=== PATIENT | male | born 1945 | race Caucasian/White ===

== ENCOUNTER 2018-11-24 08:21 | Observation (INO) | payer MEDICARE, SELFPAY ==
[2018-11-24 08:22] VITALS: BP 173/82; PULSE 105; RESP 18; TEMP 37; O2SAT 95; BMI 34.7
[2018-11-24 08:34] VITALS: TEMP 37
--- NOTE | 2018-11-24 08:50 | ED.DCSUM_ITS ---
- ER Visit Summary Date of Service: 11/24/18 Chief Complaint: Right hand swelling History of Present Illness: The patient is a 73 M with a scratch over the dorsum of the hand, it has progressed to swelling he saw his PCP yesterday who started him on Bactrim and Keflex. He presents with worse swelling. No fever or chills noted. He denies any chest pain shortness of breath, no motor issues, but the swelling is not allowing him to fully grab onto small objects. Physical Examination: Not appear in acute distress. Moist mucous membranes, no obvious facial deformity No C-spine tenderness supple neck. Regular rate and rhythm without any obvious murmurs Clear lungs bilaterally speaking in full sentences without any obvious respiratory distress Abdomen soft and nontender no guarding or rebound Right hand has a small abrasion on the dorsum of the second digit, no abscess is seen, there is diffuse edema throughout the hand and there is no lymphangitic streaking, motor and sensory are intact. Emergency Department Course and Treatment: Patient has leukocytosis and inflammatory marker elevation, however there is no osteomyelitis. He appears well but this has edema in his left hand, it is likely an infection that has not improved with outpatient antibiotics. There is no evidence of abscess or any surgical need at this time. I will admit the patient for IV antibiotics. Disposition: Admit stable condition Impression: Right hand infection This note was generated with [employer] dictation software. It may contain incorrect words, spelling, and punctuation that were not noted in review of the chart prior to signing ED Disposition - Plan for ED Patient: Referrals: Miguelangel Livingston MD [Primary Care Provider] -
[2018-11-24 09:17] LABS: Erythrocyte Sedimentation Rate 12 mm/hr (0-20)
[2018-11-24 09:19] LABS: Basophil# 0.02 X10^3/uL; Basophil% 0.1 % (0-1); Eosinophil# 0.06 X10^3/uL; Eosinophils% 0.4 % (0-5); Hematocrit 45.1 % (40-54); Hemoglobin 15.1 g/dl (13.0-16.5); Lymphocyte % 8.3 % (19-41); Mean Corp Hgb Conc 33.5 g/gl (32-36); Mean Corpuscular Hgb 31.8 pg (27.0-32.0); Mean Corpuscular Volume 94.9 fL (80-94); Mean Platelet Vol. 10.2 fl (6.2-12.0); Monocyte# 1.32 X10^3/uL; Monocyte% 7.8 % (0-10); Neutrophil # 14.03 X10^3/uL (2.7-7.7); Neutrophil % 82.8 % (47-70); Platelet Count 235 K/mm3 (150-450); RBC Distribution Width CV 12.9 % (11.6-14.6); Red Blood Count 4.75 M/mm3 (4.6-6.2); White Blood Count 16.9 K/mm3 (4.4-11.0)
[2018-11-24 09:23] LABS: POSITIVE COUNT NO; POSITIVE DIFFERENTIAL NO; POSITIVE MORPHOLOGY NO
[2018-11-24 09:29] LABS: ALB/GLOB Ratio 0.8 RATIO (0.9-2.4); AST(SGOT) 18 U/L (15-37); Alanine Aminotransfer ALT/SGPT 35 U/L (16-61); Albumin, Serum 3.6 g/dL (3.2-5.0); Alkaline Phosphatase 82 U/L (45-117); Anion Gap 6 (5-15); BUN 22 mg/dL (7-18); BUN/Creat Ratio 17.3 RATIO (10-20); Calcium,Total 9.5 mg/dL (8.5-10.1); Chloride 100 mmol/L (98-107); Creatinine, Serum 1.27 mg/dL (0.70-1.30); EST Glomerular Filtration Rate 59 mL/min (>60); Est Glom Filt Rate - Afr Amer 71 mL/min (>60); Estimated Creatinine Clearance 48.43 ml/min; Globulin 4.8 g/dL (2.2-4.2); Glucose 163 mg/dL (74-106); Potassium 3.9 mmol/L (3.5-5.1); Protein, Total 8.4 g/dL (6.4-8.2); Sodium Level 137 mmol/L (136-145)
--- NOTE | 2018-11-24 09:38 | RAD_ITS ---
STUDY: X-RAY - RIGHT HAND REASON FOR EXAM: Male, 73 years old. Soft tissue swelling. No history of trauma. TECHNIQUE: 3 view(s) of the hand. COMPARISON: None. FINDINGS: There is calcification of the triangular fibrocartilage in keeping with chondrocalcinosis. Normal distal radioulnar joint. Normal visualized carpal bones. Normal carpal articulations There is degenerative arthrosis of the carpometacarpal articulation of the thumb with lateral subluxation of the first metacarpus. Normal second through fifth carpometacarpal joints. Normal metacarpi. Normal metacarpophalangeal joint of the thumb. Normal interphalangeal joint of the thumb. Normal proximal and distal phalanges of the thumb. Normal metacarpophalangeal joints of the second through fifth fingers. Normal proximal and distal interphalangeal joints of the second through fifth fingers. Normal phalanges of the second through fifth fingers. Soft tissue swelling. RAD/Hand Min 3 Views IMPRESSION: Soft tissue swelling. Degenerative changes and subluxation at the first carpometacarpal joint. Electronically Signed: Pantera Guzman, at 10:14 EDT , Service support ,
--- NOTE | 2018-11-24 10:30 | NURSING ---
MED SURG RT HAND CELLULITIS REMI
[2018-11-24 10:34] VITALS: BP 168/85; PULSE 94; RESP 16; TEMP 37.1; O2SAT 91
--- NOTE | 2018-11-24 10:59 | CASEMGMT ---
RN CM Assessment Introduced role of RN CM to patient and patient at bedside.? Patient is alert, oriented and able?to participate in RN CM Assessment. ?Care providers, pharmacy, and demographics verified. Presentation: Scratched hand, +swelling. Seen PCP yesterday and started on ABX. C/o worse swelling. Admit Dx: Right Hand Cellulitis Re-Admit: No Barriers/Issues: None. was asking about Insurance Coverage questions. Cm did explain Obs vs Inpt, PPO vs HMO, Showed how to search for In Network Providers through [employer] website and did advise to call [employer] and/or [facility] Billing Dept for further billing and coverage information. No further questions/concerns asked or displayed. PCP: Miguelangel Livingston Specialists: None Preferred Pharmacy: [facility] Insurance: [employer] MCR PPO Rx Benefit:?Yes LNOK: [address] Living Arrangements: Lives with in a SS Home, no steps to enter.? ADL?s: Independent with ambulation, currently wearing a Ortho boot. Independent with ADL's, currently requiring assistance with dressing. Transportation: Patient drives, to transport on [place] DME: None HHC: Past, cannot recall Agency. SNF: None Goal: Home and does not anticipate will have any needs. DC PLAN: Home with no anticipated needs identified at this time. ROSEANN Payne
[2018-11-24 11:26] VITALS: BP 136/63; PULSE 84; RESP 18; TEMP 36.9; O2SAT 92; BMI 35.2; BMI 35.3
[2018-11-24] MEDS: Cefazolin 2 GM in 0.9% Normal Saline 100 ML IV ×2 (14:40→21:57)
--- NOTE | 2018-11-24 16:15 | PCM.HP.STD ---
Problem List (1) Hypertension Status: Chronic (2) Cellulitis of right hand Status: Acute History of Present Illness Date of Admission: 11/24/18 Chief Complaint: Right hand pain The patient is a 73 year old M with a history of hypertension presents after scratching the dorsum of his right hand. He does not recall on what, but he remembers having worsening swelling and therefore went to his primary care doctor yesterday who gave him Bactrim and Keflex. He states that he took a couple of pills of each however the swelling had continued to worsen and he came to the ER. He denies any advancement of redness or streaking up the arm but he came because of the swelling. In the ER he was found to have a normal x-ray and an elevated white count as well as an L elevated CRP. He denies any fevers or chills at home, no lightheadedness or dizziness. Past Medical History Past Medical History (Chronic Problems): Chronic Problems Hypertension (Chronic) Allergies No Known Allergies Allergy (Verified 11/24/18 08:24) Home Medications: Ambulatory Orders Medication Instructions Recorded Amlodipine [Norvasc] 5 mg PO DAILY 11/24/18 Aspirin [Aspir 81] 81 mg PO DAILY 11/24/18 Cephalexin [Keflex] 250 mg PO Q6 11/24/18 Cyclobenzaprine [Flexeril] 5 mg PO TID 11/24/18 Hydrochlorothiazide [Hctz] 25 mg PO DAILY 11/24/18 Losartan Potassium [Cozaar] 100 mg PO DAILY 11/24/18 Smz/Tmp Ds [Bactrim Ds] 1 tablet PO BID 11/24/18 Vardenafil HCl [Levitra] 20 mg PO DAILY PRN PRN 11/24/18 Surgical History: appendectomy Smoking Status: Never smoker Alcohol: None Drugs: None - *Family History Maternal History Items: Heart Disease Paternal History Items: High Cholesterol Review of Systems Constitutional: Denies: Chills, Fever, Weight Change HEENT: Denies: Head Aches, Sinus Congestion, Sinus Drainage Cardiovascular: Denies: Chest Pain, Palpitations Respiratory: Denies: Cough, Shortness of breath at rest, Sputum production Gastrointestinal: Denies: Abdominal Pain, Nausea, Vomiting Genitourinary: Denies: Dysuria Musculoskeletal: Denies: Joint Pain, Joint Tenderness Skin: Reports: Wounds, - - Swelling of his right hand compared to his left. Denies: Rash Neurological: Denies: Numbness, Tingling, Focal weakness Psychiatric: Denies: Anxiety, Depression Hematologic/ Lymphatic: Denies: Easy Bruising, Easy Bleeding VTE Information - Inpt Only VTE Present on Admission: No Patient Problems: Active and Suspected Problems Cellulitis of right hand (Acute) - Physical Exam General: Alert, Oriented x3, Cooperative, No apparent distress HEENT: Atraumatic, PERRLA, EOMI, Normocephalic Oral: Moist Mucosa Neck: Supple, No JVD Lungs: Clear to auscultation, Normal air movement, No rhonchi, No wheeze, No rales Cardiovascular: Regular rate, Regular Rhythm, Normal S1, Normal S2, No murmurs Abdomen: Soft, Non Tender, Non-Distended, No Hepato-splenomegaly Extremities: No edema, Capillary Refill Less than 3 Seconds Skin: Ulcer/ Wound - 2 mm wound on the dorsal surface of his first MCP joint. There is localized redness and a little bit of swelling, however there is no expanding erythema or streaking up the arm. Neurological: Neuro grossly intact, Sensory exam intact to light touch and pain Psych/Mental Status: Normal Affect, Appropriate Vital Signs Temp Pulse Resp BP Pulse Ox 98.4 F 84 18 136/63 H 92 11/24/18 11:26 11/24/18 11:26 11/24/18 11:26 11/24/18 11:26 11/24/18 11:26 Oxygen Delivery Method Room Air Weight: 225 lb 4.8 oz Body Mass Index (BMI) 35.2 Laboratory Tests Past 24 Hrs 11/24/18 11/24/18 09:00 09:00 WBC 16.9 H RBC 4.75 Hgb 15.1 Hct 45.1 MCV 94.9 H MCH 31.8 MCHC 33.5 RDW 12.9 RDW Differential 45.0 H Plt Count 235 MPV 10.2 Immature Gran % (Auto) 0.600 Neut % (Auto) 82.8 H Lymph % (Auto) 8.3 L [place] % (Auto) 7.8 Eos % (Auto) 0.4 Baso % (Auto) 0.1 Absolute Neuts (auto) 14.0 H Absolute Lymphs (auto) 1.40 Total Counted Not Reportable ESR 12 Sodium 137 Potassium 3.9 Chloride 100 Carbon Dioxide 31.0 Anion Gap 6 BUN 22 H Creatinine 1.27 Estim Creat Clear Calc 48.43 Est GFR (MDRD) Af Amer 71 Est GFR (MDRD) Non-Af 59 L BUN/Creatinine Ratio 17.3 Glucose 163 H Calcium 9.5 Total Bilirubin 0.50 AST 18 ALT 35 Alkaline Phosphatase 82 C-React Prot Ext Range 120.00 H Total Protein 8.4 H Albumin 3.6 Globulin 4.8 H Albumin/Globulin Ratio 0.8 L Assessment/Plan All Active Problems Cellulitis of right hand (Acute) 1. Right dorsal hand wound with localized erythema consistent with cellulitis -He only was able to take a few doses of both the Bactrim and Keflex before he felt that the swelling had worsened and came to the ER -Given the lack of an abscess formation will treat with IV Ancef at the moment -If there is significant improvement in his lab work tomorrow we will plan on discharge home and finish his course of Bactrim and Keflex -Chest x-ray shows only localized swelling and no bone destruction 2. HTN -Initially blood pressure was elevated secondary to pain, however he has slowly improved and we can resume his home medications DVT: Lovenox Code Visit OBSV E&M: 07336 Initial observation care L2
[2018-11-24] MEDS: Acetaminophen 325 MG Tablet 650 MG PO (17:19)
[2018-11-24 17:20] VITALS: BP 134/33; PULSE 99; RESP 16; TEMP 37.6; O2SAT 94
[2018-11-24 21:42] VITALS: BP 128/84; PULSE 100; RESP 18; TEMP 37.1; O2SAT 95
[2018-11-24] MEDS: CYCLOBENZAPRINE HCL 5 MG TABLET PO (22:01)
[2018-11-25 03:42] VITALS: BP 120/73; PULSE 89; RESP 16; TEMP 37.1; O2SAT 92
[2018-11-25] MEDS: CYCLOBENZAPRINE HCL 5 MG TABLET PO ×2 (06:25→13:19)
[2018-11-25 06:53] LABS: Absolute Lymphocyte Count 1.39 X10^3/ul (0.83-4.51); Absolute Neutrophil Count 12.3 X10^3/uL (2.0-7.7); Basophil# 0.02 X10^3/uL; Basophil% 0.1 % (0-1); Eosinophil# 0.07 X10^3/uL; Eosinophils% 0.5 % (0-5); Hematocrit 42.6 % (40-54); Hemoglobin 14.1 g/dl (13.0-16.5); Lymphocyte # 1.39 X10^3/ul (4.0); Lymphocyte % 9.4 % (19-41); Mean Corp Hgb Conc 33.1 g/gl (32-36); Mean Corpuscular Hgb 31.3 pg (27.0-32.0); Mean Corpuscular Volume 94.5 fL (80-94); Mean Platelet Vol. 10.6 fl (6.2-12.0); Monocyte# 0.98 X10^3/uL; Monocyte% 6.6 % (0-10); Neutrophil # 12.28 X10^3/uL (2.7-7.7); Neutrophil % 82.9 % (47-70); Platelet Count 236 K/mm3 (150-450); RBC Distribution Width SD 44.7 fl (35.1-43.9); Red Blood Count 4.51 M/mm3 (4.6-6.2); White Blood Count 14.8 K/mm3 (4.4-11.0)
[2018-11-25 07:00] LABS: POSITIVE COUNT NO; POSITIVE DIFFERENTIAL NO; POSITIVE MORPHOLOGY NO
[2018-11-25] MEDS: Cefazolin 2 GM in 0.9% Normal Saline 100 ML IV ×2 (07:05→13:19)
[2018-11-25 07:12] LABS: Anion Gap 9 (5-15); BUN 19 mg/dL (7-18); BUN/Creat Ratio 20.3 RATIO (10-20); Calcium,Total 9.1 mg/dL (8.5-10.1); Chloride 102 mmol/L (98-107); Creatinine, Serum 0.94 mg/dL (0.70-1.30); EST Glomerular Filtration Rate 84 mL/min (>60); Est Glom Filt Rate - Afr Amer 102 mL/min (>60); Estimated Creatinine Clearance 65.44 ml/min; Glucose 143 mg/dL (74-106); Potassium 4.3 mmol/L (3.5-5.1); Sodium Level 137 mmol/L (136-145)
[2018-11-25 08:24] VITALS: BP 160/85; PULSE 92; RESP 18; TEMP 36.8; O2SAT 92
[2018-11-25] MEDS: Acetaminophen 325 MG Tablet 650 MG PO ×2 (08:42→16:40)
[2018-11-25] MEDS: amLODIPine 5 MG Tablet PO (08:43)
[2018-11-25] MEDS: Losartan Potassium 100 MG Tablet PO (08:43)
[2018-11-25] MEDS: hydroCHLOROthiazide 25 MG Tablet PO (08:43)
[2018-11-25] MEDS: Aspirin E.C. 81 MG Tablet PO (08:43)
--- NOTE | 2018-11-25 11:35 | DCINST_ITS ---
- Discharge Diagnoses Current Active Problems: Current Active and Chronic Problems Hypertension (Chronic) Cellulitis of right hand (Acute) You will use the following diet at home:: Cardiac Your food should be the consistency of: Regular Your liquids should be the consistency of: Regular/Thin Discharge Activity: Return to Normal Activity Call your doctor if you observe: Fever of 101 or Higher, Shortness of breath, Di zziness, Fainting spells, Swelling in the ankles, Chest pain, Increased palpitations (irregular heartbeat) Allergies/Adverse Reactions: Allergies No Known Allergies Allergy (Verified 11/24/18 08:24) Medications to take at Discharge Amlodipine [Norvasc] 5 mg PO DAILY 11/24/18 Aspirin [Aspir 81] 81 mg PO DAILY 11/24/18 Cyclobenzaprine [Flexeril] 5 mg PO TID 11/24/18 Hydrochlorothiazide [Hctz] 25 mg PO DAILY 11/24/18 Losartan Potassium [Cozaar] 100 mg PO DAILY 11/24/18 Smz/Tmp Ds [Bactrim Ds] 1 tablet PO BID 11/24/18 Vardenafil HCl [Levitra] 20 mg PO DAILY PRN PRN 11/24/18 Cephalexin [Keflex] 500 mg PO Q6 #0 11/25/18 Cephalexin [Keflex] 500 mg PO Q6 #16 capsule 11/25/18 The following prescriptions were given: Cephalexin [Keflex] 500 mg PO Q6 #16 capsule Primary Care Physician: Miguelangel Livingston MD [Primary Care Provider] - Please follow up with your Primary Care Physician in: 3-5 days Test Results: Test results from this visit will be discussed in further detail at your follow- up appointment, if applicable.
--- NOTE | 2018-11-25 11:35 | PCM.DC.SUM ---
Discharge Date and Diagnosis - Problem List Patient Problems: Active and Suspected Problems Cellulitis of right hand (Acute) Date of Admission: 11/24/18 Date of Discharge: 11/25/18 - Primary Discharge Diagnosis Active and Suspected Problems Cellulitis of right hand (Acute) - Secondary Discharge Diagnosis Chronic Problems Hypertension (Chronic) Hospital Course and Treatment Imaging Results: XR R Hand: IMPRESSION: Soft tissue swelling. Degenerative changes and subluxation at the first carpometacarpal joint. Consults: None Operations: None Procedures: None Summary of Care Provided: Per HPI: The patient is a 73 year old M with a history of hypertension presents after scratching the dorsum of his right hand. He does not recall on what, but he remembers having worsening swelling and therefore went to his primary care doctor yesterday who gave him Bactrim and Keflex. He states that he took a couple of pills of each however the swelling had continued to worsen and he came to the ER. He denies any advancement of redness or streaking up the arm but he came because of the swelling. In the ER he was found to have a normal x-ray and an elevated white count as well as an L elevated CRP. He denies any fevers or chills at home, no lightheadedness or dizziness. Hospital Course: 1. Right dorsal hand wound with localized erythema consistent with very slight [id number] male with a history of hypertension who scratched his hand on his right MCP on the dorsum a couple of days ago presented to the primary care physician's office for evaluation because of pain with closing his hand and was unable to turn the francis in the ignition of his car and so was given Keflex and Bactrim. He took just 1 or 2 pills of each and presented to the ER the next day because he stated that the swelling appeared to be worse. There is been no erythema or streaking going up his arm. He has been afebrile. On admission to the ER he did have an elevated white count to 16.9 and a CRP around 120. X-ray was negative for any osteomyelitis, and he was started on IV Ancef. His white count did improve on the day of discharge to 14.8 and his swelling remained the same as it did when he came in and his pain is a little bit more improved and he still has no erythema. In review of his medications his Keflex was dosed at 250 mg 4 times daily therefore I will increase his dosage to 500 4 times daily and will give him a new prescription to to be able to take for the remaining few days. His other medical diagnoses were evaluated and his home medications were continued where appropriate. This plan was discussed with him and his and he expressed understanding and is in agreement. Patient Problems: Active and Suspected Problems Cellulitis of right hand (Acute) Objective: General: Alert, Oriented x3, Cooperative, No apparent distress HEENT: Atraumatic, PERRLA, EOMI, Normocephalic Oral: Moist Mucosa Neck: Supple, No JVD Lungs: Clear to auscultation, Normal air movement, No rhonchi, No wheeze, No rales Cardiovascular: Regular rate, Regular Rhythm, Normal S1, Normal S2, No murmurs Abdomen: Soft, Non Tender, Non-Distended, No Hepato-splenomegaly Extremities: No edema, Capillary Refill Less than 3 Seconds Skin: Ulcer/ Wound - 2 mm wound on the dorsal surface of his first MCP joint. There is localized redness and a little bit of swelling, however there is no expanding erythema or streaking up the arm. Neurological: Neuro grossly intact, Sensory exam intact to light touch and pain Psych/Mental Status: Normal Affect, Appropriate - Physical Exam Vital Signs Temp Pulse Resp BP Pulse Ox 98.2 F 92 18 160/85 H 92 11/25/18 08:24 11/25/18 08:24 11/25/18 08:24 11/25/18 08:24 11/25/18 08:24 Oxygen Delivery Method Room Air Weight: 225 lb 4.8 oz Body Mass Index (BMI) 35.2 Intake and Output for Last 24 Hours 11/23/18 11/24/18 11/25/18 23:59 23:59 23:59 Intake Total 615 / 615 Balance 615 / 615 Laboratory Tests Past 24 Hrs 11/25/18 11/25/18 06:20 06:20 WBC 14.8 H RBC 4.51 L Hgb 14.1 Hct 42.6 MCV 94.5 H MCH 31.3 MCHC 33.1 RDW 13.0 RDW Differential 44.7 H Plt Count 236 MPV 10.6 Immature Gran % (Auto) 0.500 Neut % (Auto) 82.9 H Lymph % (Auto) 9.4 L [place] % (Auto) 6.6 Eos % (Auto) 0.5 Baso % (Auto) 0.1 Absolute Neuts (auto) 12.3 H Absolute Lymphs (auto) 1.39 Total Counted Not Reportable Sodium 137 Potassium 4.3 Chloride 102 Carbon Dioxide 26.0 Anion Gap 9 BUN 19 H Creatinine 0.94 Estim Creat Clear Calc 65.44 Est GFR (MDRD) Af Amer 102 Est GFR (MDRD) Non-Af 84 BUN/Creatinine Ratio 20.3 H Glucose 143 H Calcium 9.1 Discharge Activity: Return to Normal Activity Call your doctor if you observe: Fever of 101 or Higher, Shortness of breath, Dizziness, Fainting spells, Swelling in the ankles, Chest pain, Increased palpitations (irregular heartbeat) Home Medications: Medications to take at Discharge Amlodipine [Norvasc] 5 mg PO DAILY 11/24/18 Aspirin [Aspir 81] 81 mg PO DAILY 11/24/18 Cyclobenzaprine [Flexeril] 5 mg PO TID 11/24/18 Hydrochlorothiazide [Hctz] 25 mg PO DAILY 11/24/18 Losartan Potassium [Cozaar] 100 mg PO DAILY 11/24/18 Smz/Tmp Ds [Bactrim Ds] 1 tablet PO BID 11/24/18 Vardenafil HCl [Levitra] 20 mg PO DAILY PRN PRN 11/24/18 Cephalexin [Keflex] 500 mg PO Q6 #0 11/25/18 Cephalexin [Keflex] 500 mg PO Q6 #16 capsule 11/25/18 Following Prescrptions Were Given to Patient: Cephalexin [Keflex] 500 mg PO Q6 #16 capsule Primary Care Physician: Miguelangel Livingston MD [Primary Care Provider] - Please follow up with your Primary Care Physician in: 3-5 days Disposition: Home Minutes spent on discharge:: 35 Patient Condition:: Good Medical Necessity - Tobacco Use Smoking Status: Never smoker Meaningful Use Info Meaningful Use Diagnoses (Choose all that apply): None applicable Code Visit OBSV E&M: 83739 Observation care discharge
[2018-11-25 13:21] VITALS: BP 118/64; PULSE 113; RESP 18; TEMP 37.1; O2SAT 93
[2018-11-25 17:30] VITALS: BP 118/64; PULSE 113; RESP 18; TEMP 37.1; O2SAT 93
== END 2018-11-25 17:45 | disposition home or self-care (01) ==
LOC: ED 09:38 → MS3 10:41
PROVIDERS: Admitting Provider Family Medicine; Emergency Provider Emergency Medicine; Family Provider Family Medicine; PCP Family Medicine; Visit Provider Family Medicine
DX: L03.113 Cellulitis of right upper limb (principal); I10 Essential (primary) hypertension; Z79.899 Other long term (current) drug therapy; Z79.82 Long term (current) use of aspirin
CPT/HCPCS: 36415; 73130; 80048; 80053; 85025; 85652; 86140; 96365; 96366; 99218; 99284; J7050; A4216; G0378

== ENCOUNTER 2018-12-05 23:11 | Inpatient (IN) | payer MEDICARE, SELFPAY ==
[2018-11-24 11:26] VITALS: BMI 35.2
[2018-12-05 23:11] VITALS: BP 133/84; PULSE 106; RESP 18; TEMP 37.5; O2SAT 92; BMI 35.1
[2018-12-06] MEDS: HYDROcodone Bitartrate/Apap 5/325 Tablet PO ×2 (00:07→08:31)
[2018-12-06 00:13] LABS: Absolute Lymphocyte Count 1.42 X10^3/ul (0.83-4.51); Absolute Neutrophil Count 13.3 X10^3/uL (2.0-7.7); Basophil# 0.02 X10^3/uL; Basophil% 0.1 % (0-1); Eosinophil# 0.04 X10^3/uL; Eosinophils% 0.2 % (0-5); Hematocrit 37.8 % (40-54); Hemoglobin 12.9 g/dl (13.0-16.5); Lymphocyte # 1.42 X10^3/ul (4.0); Lymphocyte % 8.6 % (19-41); Mean Corp Hgb Conc 34.1 g/gl (32-36); Mean Corpuscular Hgb 31.6 pg (27.0-32.0); Mean Corpuscular Volume 92.6 fL (80-94); Mean Platelet Vol. 9.9 fl (6.2-12.0); Monocyte# 1.53 X10^3/uL; Monocyte% 9.3 % (0-10); Neutrophil # 13.33 X10^3/uL (2.7-7.7); Platelet Count 348 K/mm3 (150-450); RBC Distribution Width CV 12.7 % (11.6-14.6); RBC Distribution Width SD 42.7 fl (35.1-43.9); Red Blood Count 4.08 M/mm3 (4.6-6.2); White Blood Count 16.5 K/mm3 (4.4-11.0)
[2018-12-06 00:14] LABS: Differential Indicated SCAN CRITERIA MET; POSITIVE COUNT NO; POSITIVE DIFFERENTIAL YES; POSITIVE MORPHOLOGY NO
[2018-12-06 00:28] LABS: Anion Gap 9 (5-15); BUN 36 mg/dL (7-18); BUN/Creat Ratio 29.3 RATIO (10-20); Calcium,Total 9.3 mg/dL (8.5-10.1); Chloride 97 mmol/L (98-107); Creatinine, Serum 1.23 mg/dL (0.70-1.30); EST Glomerular Filtration Rate 61 mL/min (>60); Est Glom Filt Rate - Afr Amer 74 mL/min (>60); Estimated Creatinine Clearance 50.01 ml/min; Glucose 134 mg/dL (74-106); Potassium 3.8 mmol/L (3.5-5.1); Sodium Level 132 mmol/L (136-145)
[2018-12-06 00:33] LABS: Lactic Acid 0.8 mmol/L (0.4-2.0)
--- NOTE | 2018-12-06 00:52 | ED.VISSUMM ---
- ER Visit Summary Date of Service: 12/06/18 Chief Complaint: Pain and swelling of the right foot History of Present Illness: The patient is a 73 M who presents with pain and swelling of his right foot. This really started today. Pain is sharp. He also noticed some redness and swelling. He has a history of recent right hand cellulitis which was difficult to control and resulted in 2 different hospitalizations. He actually just completed Augmentin. He denies fevers nausea vomiting chest pain shortness of breath. No history of DVT. Physical Examination: Temperature 99.5, heart rate 106 pulse ox 92% Moist mucous membranes Heart regular slightly tachycardic Lungs clear Abdomen soft There is some erythema and soft tissue swelling of the right foot is warm to the touch he has normal sensation but brisk capillary refill Alert Test Results: Labs are notable for white blood cell count 16.5. Lactic acid normal. Emergency Department Course and Treatment: Patient was given Bruno for pain. He does have a leukocytosis although lactic acid is normal. He had a scheduled appointment with podiatry later today. We discussed oral antibiotics with close outpatient follow-up with the understanding that he would need to return for new or worsening symptoms versus hospitalization for IV antibiotics given his recent history of difficult to control cellulitis. Patient and family would prefer that he be admitted. I do think this is reasonable given leukocytosis, slight tachycardia, recent cellulitis and just completed oral antibiotics. Treatment Plan: [] Disposition: Admit Impression: Cellulitis right foot This note was generated with [employer] dictation software. It may contain incorrect words, spelling, and punctuation that were not noted in review of the chart prior to signing ED Disposition - Plan for ED Patient: Referrals: Miguelangel Livingston MD [Primary Care Provider] -
[2018-12-06 00:56] LABS: Differential Comment SCANNED
--- NOTE | 2018-12-06 01:58 | ECHOCS_ITS ---
Reason For Study: Murmur Procedure This was a 2D Doppler, Color Flow transthoracic echocardiogram. The study was technically difficult. Contrast injection was performed. Exam performed portable in patient room. Left Ventricle Normal LV size. Left ventricular systolic function is normal. The estimated ejection fraction is 65 %. Diastolic function is indeterminate. No regional wall motion abnormalities noted. Right Ventricle Normal RV size. Normal systolic function. Atria Normal left atrium. Normal right atrium. No doppler evidence for ASD. Mitral Valve There is mild mitral annular calcification. Normal mitral valve. Trivial mitral valve insufficiency. Tricuspid Valve Normal tricuspid valve. Trivial tricuspid valve insufficiency. Unable to estimate RV systolic pressure/pulmonary artery pressure due to technically difficult study. Aortic Valve Trisinus/trileaflet aortic valve. Mild diffuse aortic valve thickening. Mild focal aortic valve calcification. Mild aortic stenosis. Pulmonic Valve The pulmonic valve is not well visualized. Great Vessels Normal sized aortic root. Pericardium/Pleural No pericardial effusion. Medication Diluted definity 3ml given slow IV push to enhance endocardial definition. MMode/2D Measurements & Calculations LVIDd: 4.1 cm IVSd: 1.2 cm LVOT diam: 2.0 cm LVIDs: 2.5 cm LVPWd: 1.0 cm FS: 39.8 % LVOT area: 3.2 cm2 Ao root diam: 3.4 cm LAV(MOD-bp): 44.3 ml Aortic Valve Planimetry: 0.89 cm2 ACS: 0.90 cm LAV(MOD-bp) Indexed: 21.3 ml/m2 LA dimension: 3.4 cm LAV(MOD-sp2): 44.0 ml LAV(MOD-sp4): 38.1 ml LA A4 area: 15.4 cm2 RA A4 area: 13.8 cm2 Time Measurements MV dec time: 0.17 sec Doppler Measurements & Calculations MV E max ryan: 82.0 cm/sec Lat Peak E' Ryan: 11.9 cm/sec Med Peak E' Ryan: 9.4 cm/sec MV A max ryan: 116.3 cm/sec E/E' lat: 6.9 E/E' med: 8.8 MV E/A: 0.70 MV V2 max: 107.9 cm/sec MV P1/2t max ryan: 79.9 cm/sec Ao V2 max: 256.2 cm/sec MV max P.7 mmHg MV P1/2t: 57.0 msec Ao max P.3 mmHg MV V2 mean: 60.7 cm/sec MV dec slope: 410.9 cm/sec2 Ao V2 mean: 160.3 cm/sec MV mean P.7 mmHg Ao mean P.1 mmHg MV V2 VTI: 23.0 cm MVA(P1/2t): 3.9 cm2 Ao V2 VTI: 44.5 cm MVA(VTI): 2.8 cm2 BETH(I,D): 1.5 cm2 BETH(V,D): 1.2 cm2 LV V1 max: 96.7 cm/sec SV(LVOT): 65.3 ml PA V2 max: 117.5 cm/sec LV V1 max P.7 mmHg LV V1 mean P.0 mmHg LV V1 mean: 63.7 cm/sec LV V1 VTI: 20.6 cm Interpretation Summary The study was technically difficult. Contrast injection was performed. Left ventricular systolic function is normal. The estimated ejection fraction is 65 %. There is mild mitral annular calcification. Trivial mitral valve insufficiency. Trivial tricuspid valve insufficiency. Mild aortic stenosis. Unable to estimate RV systolic pressure/pulmonary artery pressure due to technically difficult study. Diastolic function is indeterminate. Ordering Physician: Mainor Ojeda Referring Physician: Mainor Ojeda Performed By: Waldemar Lagos RCS
[2018-12-06 02:08] VITALS: BP 143/63; PULSE 96; RESP 16; TEMP 37; O2SAT 94; BMI 33.7
[2018-12-06 02:24] VITALS: BMI 33.7
--- NOTE | 2018-12-06 02:29 | HP.PCM_ITS ---
Problem List (1) Right foot pain Status: Acute (2) Redness of the right foot Status: Acute History of Present Illness Date of Admission: 12/06/18 Chief Complaint: Right foot pain and redness The patient is a 73 year old M was seen in the emergency room at [facility] after being brought in by squad with complaints of right foot pain and redness. He states that his right foot began hurting him on 12/04/2018 and on 12/05/2018 he noticed redness and increased pain but did not come to the emergency room right away, finally he was instructed by his family to go to the ER when they became concerned about his symptoms. Patient denies fevers or chills. Patient had been treated for cellulitis of his right hand and was hospitalized here at [place] on November 24 and of this year, he received treatm ent with IV Ancef during his hospitalization was discharged on Keflex on 11/25/2018. Patient was seen in follow-up for his hospitalization on 11/28/2018 in a physician's office and he was instructed to go to the emergency room at [facility] due to continued redness of his right hand and was admitted on 11/28/2018 for cellulitis of his right hand unresponsive to outpatient treatment with the Keflex. His family states that he was treated in part with Unasyn in the hospital at [place], they feel he had additional antibiotics also there but they do not know which antibiotics were used. He was discharged home on 12/02/2018 on Augmentin. Patient was still taking Augmentin when he came to the emergency room for evaluation on 12/05/2018 here. Work-up in the emergency room included labs which showed an elevated white blood cell count at 16.5, hemoglobin was 12.9, lactic acid was normal at 0.8, BUN was 36, sodium was 132, patient's temperature was 99.5. Patient was given IV Zosyn and IV vancomycin in the emergency room, he will be admitted to [facility] for cellulitis of the right foot. Past Medical History Past Medical History (Chronic Problems): Chronic Problems Hypertension (Chronic) Allergies simvastatin Adverse Reaction (Verified 12/05/18 23:14) Upset Stomach Home Medications: Ambulatory Orders Medication Instructions Recorded Amlodipine [Norvasc] 5 mg PO DAILY 11/24/18 Aspirin [Aspir 81] 81 mg PO DAILY 11/24/18 Cyclobenzaprine [Flexeril] 10 mg PO TID 11/24/18 Hydrochlorothiazide [Hctz] 25 mg PO DAILY 11/24/18 Losartan Potassium [Cozaar] 100 mg PO DAILY 11/24/18 Vardenafil HCl [Levitra] 20 mg PO DAILY PRN PRN 11/24/18 Amoxicillin/Potassium Clav 1 each PO BID 12/05/18 [Augmentin 875-125 Tablet] Surgical History: appendectomy Psychiatric History: No pertinent psych hx Lives: Spouse/ Significant Other Smoking Status: Never smoker Tobacco Use: Non-smoker Alcohol: None Drugs: None - *Family History Maternal History Items: Heart Disease Paternal History Items: High Cholesterol Review of Systems Constitutional: Denies: Anorexia, Chills, Fever, Night Sweats, Malaise, Weakness, Weight Change, Fatigue Eyes: Denies: Cataracts, Conjunctivae Inflammation, Double vision, Drainage HEENT: Denies: Difficulty Swallowing, Dysphasia, Ear Pain, Eye Pain, Hearing Changes, Nasal bleeding, Nasal Congestion, Post Nasal Drip Cardiovascular: Denies: Chest Pain, Claudication, Chest Pressure, Chest Tightness, Edema, Heaviness, Light Headedness, Palpitations Respiratory: Denies: Cough, Hemoptysis, Pleuritic Pain, Shortness of Breath, Shortness of breath at rest, Shortness of breath upon exertion Gastrointestinal: Denies: Abdominal Pain, Constipation, Diarrhea, Hematemesis, Hematochezia, Nausea, Melena, Vomiting Genitourinary: Denies: Dysuria, Frequency, Hematuria, Hesitancy, Urgency Musculoskeletal: Reports: Foot Pain - Patient complained of right foot pain as outlined in chief complaint, in addition he complained of right ankle swelling and pain, Joint Pain - Right ankle pain, Joint swelling - Right ankle swelling, Joint Tenderness - Right ankle discomfort. Denies: Arm Pain, Back Pain, Hand Pain, Joint stiffness, Leg Pain Skin: Reports: Rash - Patient complains of rash over his right foot. Denies: Dryness, Jaundice, Pruritis, Wounds Neurological: Denies: Blurred vision, Double vision, Slurred speech, Difficulty swallowing, Focal weakness, Headaches, Incoordination, Numbness, Tingling Psychiatric: Denies: Anxiety, Depression, Homicidal Ideations, Suicidal Ideations Endocrine: Denies: Change in Body Habitus, Heat/ Cold Intolerance, Polydipsia, Polyuria Hematologic/ Lymphatic: Denies: Adenopathy, Anemia, Easy Bruising, Easy Bleeding, Petechiae, Purpura VTE Information - Inpt Only VTE Present on Admission: No VTE Mechan Device Prophylaxis: None VTE Pharm Prophylaxis ordered?: Yes Patient Problems: Active and Suspected Problems Right foot pain (Acute) Redness of the right foot (Acute) - Physical Exam General: Alert, Oriented x3, Cooperative, No apparent distress, Well developed, Well nourished HEENT: Atraumatic, PERRLA, EOMI, Normocephalic Oral: Moist Mucosa Neck: Supple, No JVD, Negative Carotid Bruits, Trachea Midline, Thyroid Normal Size and Texture Lungs: Clear to auscultation, Normal air movement, No rhonchi, No wheeze, No rales Cardiovascular: Regular rate, Regular Rhythm, Normal S1, Normal S2, No Ectopic Activity, PMI Normal, Murmur - There is a 2/6 systolic murmur noted at the apex, No rub noted, No Gallop Abdomen: Bowel Sounds Present, Soft, Non Tender, Non-Distended, No hernias noted Extremities: No clubbing, No cyanosis, Capillary Refill Less than 3 Seconds, Edema - There is mild generalized edema over the patient's right foot Skin: No breakdown, Rash Present - There is redness present over the patient's right foot chiefly over the dorsum of the right foot, - - There is no sign of any skin break, eschar, or discharge from the right foot Musculoskeletal: Tenderness - There is tenderness to palpation over the patient's right foot and right ankle area Neurological: Cranial nerves II-XII grossly intact, Neuro grossly intact, Sensory exam intact to light touch and pain, Coordination normal Psych/Mental Status: Normal Affect, Appropriate, Alert and oriented to time, place, person, mood and affect Vital Signs Temp Pulse Resp BP Pulse Ox 98.6 F 96 16 143/63 H 94 12/06/18 02:08 12/06/18 02:08 12/06/18 02:08 12/06/18 02:08 12/06/18 02:08 Oxygen Delivery Method Room Air Weight: 97.7 kg Body Mass Index (BMI) 33.7 Laboratory Tests Past 24 Hrs 12/05/18 12/05/18 12/05/18 23:55 23:55 23:55 WBC 16.5 H RBC 4.08 L Hgb 12.9 L Hct 37.8 L MCV 92.6 MCH 31.6 MCHC 34.1 RDW 12.7 RDW Differential 42.7 Plt Count 348 MPV 9.9 Immature Gran % (Auto) 0.800 Neut % (Auto) 81.0 H Lymph % (Auto) 8.6 L [place] % (Auto) 9.3 Eos % (Auto) 0.2 Baso % (Auto) 0.1 Absolute Neuts (auto) 13.3 H Absolute Lymphs (auto) 1.42 Total Counted Not Reportable Differential Comment SCANNED Diff Path Review May foll Sodium 132 L Potassium 3.8 Chloride 97 L Carbon Dioxide 26.0 Anion Gap 9 BUN 36 H Creatinine 1.23 Estim Creat Clear Calc 50.01 Est GFR (MDRD) Af Amer 74 Est GFR (MDRD) Non-Af 61 BUN/Creatinine Ratio 29.3 H Glucose 134 H Lactic Acid 0.8 Calcium 9.3 Assessment/Plan All Active Problems Cellulitis of right hand (Resolved) Right foot pain (Acute) Redness of the right foot (Acute) #1 cellulitis of the right foot-most probably bacterial in nature, possibly staph or strep-possibly MRSA-patient will be admitted to [facility], he will be treated with IV vancomycin, lab will be monitored, he will be seen in consultation by infectious diseases. I have elected to have an echocardiogram performed-patient has a history of a heart murmur and has not had an echo cardiogram since last year. #2 hypertension #3 status post cellulitis of the right hand-etiology unclear Code Visit Inpatient E&M: 11720 Init Hosp L3
--- NOTE | 2018-12-06 03:01 | PCM.RX.CS ---
Consult Pharmacy has been consulted to manage selected antiobiotic: Vancomycin Type of Consult: New start Suspected Infection: Skin/Soft tissue Labs: Sodium 132 mmol/L (136-145) L 12/05/18 23:55 Potassium 3.8 mmol/L (3.5-5.1) 12/05/18 23:55 Chloride 97 mmol/L (98-107) L 12/05/18 23:55 Carbon Dioxide 26.0 mmol/L (21.0-32.0) 12/05/18 23:55 Anion Gap 9 (5-15) 12/05/18 23:55 BUN 36 mg/dL (7-18) H 12/05/18 23:55 Creatinine 1.23 mg/dL (0.70-1.30) 12/05/18 23:55 Est GFR (MDRD) Af Amer 74 mL/min (>60) 12/05/18 23:55 Est GFR (MDRD) Non-Af 61 mL/min (>60) 12/05/18 23:55 BUN/Creatinine Ratio 29.3 RATIO (10-20) H 12/05/18 23:55 Glucose 134 mg/dL (74-106) H 12/05/18 23:55 Weight used for dosin.7 kg Estimated Creatinine Clearance: 48.9 Goal Trough: 10-15 mcg/mL Pharmacy Plan for Drug Dosing: Pharmacy Service will continue to monitor and adjust dosing as required. Medications Vancomycin HCl 1,500 mg/ (Sodium Chloride) 530 mls @ 250 mls/hr IV X1 ONE Stop: 12/06/18 03:07 Last Admin: 12/06/18 02:22 Dose: 250 mls/hr Vancomycin HCl 1,250 mg/ (Sodium Chloride) 275 mls @ 167 mls/hr IV Q24H SHELBY Follow-Up Labs: Trough Vancomycin Labs to be done on [date and time ordered]: 12/08 @ 0336
[2018-12-06] MEDS: 0.9% NaCl Peripheral Flush Adult/Peds IV (05:33)
[2018-12-06] MEDS: 0.9% NaCl IVPB Med Flush (250 mL) 15 ML IV (05:34)
[2018-12-06 06:25] LABS: Absolute Lymphocyte Count 1.52 X10^3/ul (0.83-4.51); Absolute Neutrophil Count 10.3 X10^3/uL (2.0-7.7); Basophil# 0.02 X10^3/uL; Basophil% 0.1 % (0-1); Eosinophil# 0.06 X10^3/uL; Eosinophils% 0.4 % (0-5); Hemoglobin 11.9 g/dl (13.0-16.5); Lymphocyte # 1.52 X10^3/ul (4.0); Lymphocyte % 11.4 % (19-41); Mean Corp Hgb Conc 33.1 g/gl (32-36); Mean Corpuscular Hgb 30.5 pg (27.0-32.0); Mean Corpuscular Volume 92.3 fL (80-94); Monocyte# 1.33 X10^3/uL; Monocyte% 9.9 % (0-10); Neutrophil % 77.2 % (47-70); Platelet Count 310 K/mm3 (150-450); RBC Distribution Width CV 12.4 % (11.6-14.6); RBC Distribution Width SD 40.6 fl (35.1-43.9); White Blood Count 13.4 K/mm3 (4.4-11.0)
[2018-12-06 06:26] LABS: POSITIVE COUNT NO; POSITIVE DIFFERENTIAL NO; POSITIVE MORPHOLOGY NO
[2018-12-06 08:10] VITALS: BP 132/68; PULSE 92; RESP 18; TEMP 37.1; O2SAT 91
--- NOTE | 2018-12-06 11:13 | CON.PCM_ITS ---
Problem List (1) Redness of the right foot Status: Acute Reason for Consult: cellulitis Consulted by: Dr. Ojeda History of Present Illness: The patient is a 73 year old M with recent admission for R hand cellulitis, received multiple courses of abx as outpt, then admitted here, then saw ortho outpt, then admitted to [facility]. Had much improved, stopped augmentin 12/04, on 12/05 had acute onset R foot burning pain with redness. No fever or chills. Admitted here, redness now much improved on iv vanc. Did get one dose of zosyn. Full ROS performed and neg except as noted above. - Medical History Past Medical History (Chronic Problems): Chronic Problems Hypertension (Chronic) Allergies/Adverse Reactions: Allergies simvastatin Adverse Reaction (Verified 12/05/18 23:14) Upset Stomach Home Medications: Ambulatory Orders Medication Instructions Recorded Amlodipine [Norvasc] 5 mg PO DAILY 11/24/18 Aspirin [Aspir 81] 81 mg PO DAILY 11/24/18 Cyclobenzaprine [Flexeril] 10 mg PO TID 11/24/18 Hydrochlorothiazide [Hctz] 25 mg PO DAILY 11/24/18 Losartan Potassium [Cozaar] 100 mg PO DAILY 11/24/18 Vardenafil HCl [Levitra] 20 mg PO DAILY PRN PRN 11/24/18 Amoxicillin/Potassium Clav 1 each PO BID 12/05/18 [Augmentin 875-125 Tablet] - Social History SMOKING STATUS:: Never smoker Vital Signs Temp Pulse Resp BP Pulse Ox 98.7 F 92 18 132/68 H 91 12/06/18 08:10 12/06/18 08:10 12/06/18 08:10 12/06/18 08:10 12/06/18 08:10 Oxygen Delivery Method Room Air Weight: 97.7 kg Body Mass Index (BMI) 33.7 Laboratory Tests Past 24 Hrs 12/05/18 12/05/18 12/05/18 23:55 23:55 23:55 WBC 16.5 H RBC 4.08 L Hgb 12.9 L Hct 37.8 L MCV 92.6 MCH 31.6 MCHC 34.1 RDW 12.7 RDW Differential 42.7 Plt Count 348 MPV 9.9 Immature Gran % (Auto) 0.800 Neut % (Auto) 81.0 H Lymph % (Auto) 8.6 L [place] % (Auto) 9.3 Eos % (Auto) 0.2 Baso % (Auto) 0.1 Absolute Neuts (auto) 13.3 H Absolute Lymphs (auto) 1.42 Total Counted Not Reportable Differential Comment SCANNED Diff Path Review May foll Sodium 132 L Potassium 3.8 Chloride 97 L Carbon Dioxide 26.0 Anion Gap 9 BUN 36 H Creatinine 1.23 Estim Creat Clear Calc 50.01 Est GFR (MDRD) Af Amer 74 Est GFR (MDRD) Non-Af 61 BUN/Creatinine Ratio 29.3 H Glucose 134 H Lactic Acid 0.8 Calcium 9.3 12/06/18 06:02 WBC 13.4 H RBC 3.90 L Hgb 11.9 L Hct 36.0 L MCV 92.3 MCH 30.5 MCHC 33.1 RDW 12.4 RDW Differential 40.6 Plt Count 310 MPV 10.0 Immature Gran % (Auto) 1.000 H Neut % (Auto) 77.2 H Lymph % (Auto) 11.4 L [place] % (Auto) 9.9 Eos % (Auto) 0.4 Baso % (Auto) 0.1 Absolute Neuts (auto) 10.3 H Absolute Lymphs (auto) 1.52 Total Counted Not Reportable Differential Comment Diff Path Review Sodium Potassium Chloride Carbon Dioxide Anion Gap BUN Creatinine Estim Creat Clear Calc Est GFR (MDRD) Af Amer Est GFR (MDRD) Non-Af BUN/Creatinine Ratio Glucose Lactic Acid Calcium - Other Studies Radiology: [] reviewed Other Studies: [] Route of nutrition/ use of supplements: [] Nutritional Intake: [] IV Site: [] Pfeiffer Catheter: [] - Physical Exam General: Alert, Oriented x3, Cooperative, No apparent distress HEENT: Atraumatic, PERRLA, EOMI Neck: Supple, No Nodes Lungs: Clear to auscultation, Normal air movement Cardiovascular: Regular rate, Regular Rhythm, Murmur Abdomen: Soft, Non Tender, Non-Distended Extremities: No edema Skin: - - minimal erythema on dorsal R foot, fading. Some point tenderness present around 4th metatarsal Musculoskeletal: No Tenderness to Palpation of Joints or Extremities Neurological: Cranial nerves II-XII grossly intact - Assessment/Plan Antibiotics: [] Assessment/Plan: [] Active and Suspected Problems Right foot pain (Acute) Redness of the right foot (Acute) sepsis (tachycardia, leukocytosis on admit) due to R foot cellulitis - much improved at this point. Will check bcx. Echo pending. Low suspicion for systemic infection. Ok to keep vanc for now. 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 Flores for eval. Will follow, thank you, d/w Dr. Freeman.
[2018-12-06] MEDS: hydroCHLOROthiazide 25 MG Tablet PO (11:28)
[2018-12-06] MEDS: Losartan Potassium 100 MG Tablet PO (11:28)
[2018-12-06] MEDS: Aspirin E.C. 81 MG Tablet PO (11:28)
[2018-12-06] MEDS: amLODIPine 5 MG Tablet PO (11:28)
[2018-12-06] MEDS: Heparin Injection (Vial) 5,000 UNIT/ML VIAL 5000 UNIT SC ×2 (11:30→21:31)
--- NOTE | 2018-12-06 13:26 | CASEMGMT ---
RN CM Assessment Introduced role of RN CM to patient and patient Dtr at bedside.? Patient is alert, oriented and able?to participate in RN CM Assessment. ?Care providers, pharmacy, and demographics verified. Presentation: Right foot pain and redness Admit Dx: Cellulitis of Right Foot Re-Admit: No, OBS 11/24-11/25/18 for Rt hand Cellulitis Barriers/Issues: None PCP: Miguelangel Livingston Specialists: None Preferred [facility]acy: [facility] Insurance: [employer] [facility] Rx Benefit: Yes? ?LNOK: [address] LW/HPOA: No, Has the information at home Living Arrangements:?Lives with in a SS Home, no steps to enter. ADL?s: Independent with ambulation and ADL's. On last Admit was wearing an ortho boot and was assisting him with dressing changes. Transportation: Patient drives, to transport on [place] DME: None HHC: Past SNF: None Goal: Home, does not think will have any needs. States if HHC needed- no preference on Agency, preference in network. If IV Abx needed, states no preference on Infusion Company, preference in network. DC PLAN: Home with possible HH and/or IV Abx. ROSEANN Payne
[2018-12-06 13:59] VITALS: BP 127/63; PULSE 106; RESP 16; TEMP 37.1; O2SAT 90
[2018-12-06 14:42] LABS: Pathologist Review Reviewed
--- NOTE | 2018-12-06 15:22 | RAD_ITS ---
STUDY: X-RAY - RIGHT FOOT CLINICAL: Male, 73 years old. Infection TECHNIQUE: 3 view(s) of the foot. COMPARISON: None. FINDINGS: There is no evidence of fracture or dislocation. There is a plantar calcaneal spur noted. There are no radiodense foreign bodies. There are no definite radiographic findings of osteomyelitis. There is mild soft tissue swelling noted. RAD/Foot min 3 Views IMPRESSION: No fracture or dislocation in the right foot. No definite radiographic findings of osteomyelitis. Mild soft tissue swelling. Plantar calcaneal spur. Electronically Signed: Steven Guerrero, at 15:53 EDT Tel , Service support ,
--- NOTE | 2018-12-06 15:23 | RAD_ITS ---
STUDY: X-RAY - RIGHT ANKLE REASON FOR EXAM: Male, 73 years old. Infection TECHNIQUE: 3 view(s) of the ankle. COMPARISON: None. FINDINGS: There is no evidence of fracture or dislocation. There are no significant degenerative changes. There are no radiodense foreign bodies. There are no definite radiographic findings of osteomyelitis. RAD/Ankle min 3 Views IMPRESSION: No fracture or dislocation in the right ankle. No definite radiographic findings of osteomyelitis. Electronically Signed: Steven Guerrero, at 15:51 EDT Tel , Service support ,
--- NOTE | 2018-12-06 15:29 | CON.PCM_ITS ---
Problem List (1) Cellulitis of right foot Status: Acute (2) Right ankle pain Status: Acute (3) Right foot pain Status: Acute Reason for Consult Date of Consultation: 12/06/18 Reason for Consultation: Right foot and ankle pain with redness History of Present Illness: The patient is a 73 year old M was seen bedside this afternoon for painful red right foot and ankle. The onset was yesterday afternoon. He denies known trauma or stepping on a foreign body. His pain is rated as a 9 out of 10 and is aggravated with touch, movement, and walking. He has a callus to the bottom of his foot and denies known drainage. He has been elevating. Since he has been admitted to the hospital and was started on IV antibiotics he has reduction in pain and decreased redness intensity to the right foot. No Past Medical History Past Medical History (Chronic Problems): Chronic Problems Hypertension (Chronic) Allergies simvastatin Adverse Reaction (Verified 12/05/18 23:14) Upset Stomach Home Medications: Ambulatory Orders Medication Instructions Recorded Amlodipine [Norvasc] 5 mg PO DAILY 11/24/18 Aspirin [Aspir 81] 81 mg PO DAILY 11/24/18 Hydrochlorothiazide [Hctz] 25 mg PO DAILY 11/24/18 Losartan Potassium [Cozaar] 100 mg PO DAILY 11/24/18 Vardenafil HCl [Levitra] 20 mg PO DAILY PRN PRN 11/24/18 cycloBENZAPRine HCl [Flexeril] 10 mg PO TID 11/24/18 Amoxicillin/Potassium Clav 1 each PO BID 12/05/18 [Augmentin 875-125 Tablet] Surgical History: appendectomy Psychiatric History: No pertinent psych hx Lives: Spouse/ Significant Other Smoking Status: Never smoker Tobacco Use: Non-smoker Alcohol: None Drugs: None - *Family History Maternal History Items: Heart Disease Paternal History Items: High Cholesterol Review of Systems Constitutional: Denies: Chills, Fever, Fatigue Cardiovascular: Denies: Chest Pain, Claudication, Edema Respiratory: Denies: Shortness of Breath Gastrointestinal: Denies: Diarrhea, Nausea, Vomiting Musculoskeletal: Reports: Foot Pain. Denies: Leg Pain, Muscle pain Skin: Reports: Skin Changes - callous. Denies: Wounds Neurological: Denies: Numbness Hematologic/ Lymphatic: Denies: Easy Bruising, Easy Bleeding Patient Problems: Active and Suspected Problems Cellulitis of right foot (Acute) Right ankle pain (Acute) Right foot pain (Acute) Redness of the right foot (Acute) - Physical Exam General: Alert, Oriented x3, Cooperative HEENT: Atraumatic Extremities: No cyanosis, Capillary Refill Less than 3 Seconds, No Calf Tenderness - negative Alex and Valdivia signs bilateral, Edema - Mild bilateral lower extremities, Peripheral Pulses Normal, - - Active range of motion digits x 10 and ankle as well with pain noted to the right Skin: - - No skin discontinuity maceration no open lesions or drainage or necrosis bilateral lower extremities. He does have streaking erythema to the dorsal aspect of the right foot which is marked with a pen and there seems to be Less of an area covered compared to the marked area. No bogginess or fluctuance on palpation to bilateral foot ankle or lower leg compartments. Musculoskeletal: No Tenderness to Palpation of Joints or Extremities, Muscle Wasting, - - Prominent fifth metatarsal heads consistent with tailor bunion and hammertoe deformity bilateral. Diffuse pain on palpation to right ankle and foot dorsum along with streaking area; no crepitus. 5 out of 5 ankle muscle strength in all directions bilateral Neurological: Sensory exam intact to light touch and pain Psych/Mental Status: Normal Affect, Appropriate Vital Signs Temp Pulse Resp BP Pulse Ox 98.7 F 106 H 16 127/63 H 90 12/06/18 13:59 12/06/18 13:59 12/06/18 13:59 12/06/18 13:59 12/06/18 13:59 Oxygen Delivery Method Room Air Weight: 97.7 kg Body Mass Index (BMI) 33.7 Intake and Output for Last 24 Hours 12/04/18 12/05/18 12/06/18 23:59 23:59 23:59 Intake Total 1242 / 1242 Output Total 450 / 450 Balance 792 / 792 Laboratory Tests Past 24 Hrs 12/05/18 12/05/18 12/05/18 23:55 23:55 23:55 WBC 16.5 H RBC 4.08 L Hgb 12.9 L Hct 37.8 L MCV 92.6 MCH 31.6 MCHC 34.1 RDW 12.7 RDW Differential 42.7 Plt Count 348 MPV 9.9 Immature Gran % (Auto) 0.800 Neut % (Auto) 81.0 H Lymph % (Auto) 8.6 L [place] % (Auto) 9.3 Eos % (Auto) 0.2 Baso % (Auto) 0.1 Absolute Neuts (auto) 13.3 H Absolute Lymphs (auto) 1.42 Total Counted Not Reportable Differential Comment SCANNED Diff Path Review Reviewed Sodium 132 L Potassium 3.8 Chloride 97 L Carbon Dioxide 26.0 Anion Gap 9 BUN 36 H Creatinine 1.23 Estim Creat Clear Calc 50.01 Est GFR (MDRD) Af Amer 74 Est GFR (MDRD) Non-Af 61 BUN/Creatinine Ratio 29.3 H Glucose 134 H Lactic Acid 0.8 Calcium 9.3 12/06/18 06:02 WBC 13.4 H RBC 3.90 L Hgb 11.9 L Hct 36.0 L MCV 92.3 MCH 30.5 MCHC 33.1 RDW 12.4 RDW Differential 40.6 Plt Count 310 MPV 10.0 Immature Gran % (Auto) 1.000 H Neut % (Auto) 77.2 H Lymph % (Auto) 11.4 L [place] % (Auto) 9.9 Eos % (Auto) 0.4 Baso % (Auto) 0.1 Absolute Neuts (auto) 10.3 H Absolute Lymphs (auto) 1.52 Total Counted Not Reportable Differential Comment Diff Path Review Sodium Potassium Chloride Carbon Dioxide Anion Gap BUN Creatinine Estim Creat Clear Calc Est GFR (MDRD) Af Amer Est GFR (MDRD) Non-Af BUN/Creatinine Ratio Glucose Lactic Acid Calcium Assessment/Plan All Active Problems Cellulitis of right foot (Acute) Right ankle pain (Acute) Cellulitis of right hand (Resolved) Right foot pain (Acute) Redness of the right foot (Acute) right foot cellulitis Right foot and ankle pain no ulcer noted I reviewed and discussed his case. He is on vancomycin and Zosyn at this time; to continue. It is noted there is no wound or drainage to culture. Infectious disease recommendations are greatly appreciated. He appears to be responding well. He was reassured no wound or maceration is seen. I do recommend obtaining a foot and ankle x-ray to rule out any acute injuries; this is pending. His vital signs are stable and he is afebrile. To weight-bear as tolerated. If his pain reduction is not continued tomorrow and pending his clinical response, a cam walker boot will be ordered. I recommend edema control with an Juan wrap and this will be ordered. To elevate the limb at rest. I will continue to follow him closely while in house. Thank you very much for the consultation. Medical management DVT prophylaxis per primary team is greatly appreciated. Please not hesitate to call if you have any questions. Kayy Flores DPM, [facility] [phone]
[2018-12-06 21:21] VITALS: BP 149/62; PULSE 107; RESP 18; TEMP 37.9; O2SAT 93
[2018-12-06] MEDS: Acetaminophen 325 MG Tablet 650 MG PO (21:28)
[2018-12-07 02:03] VITALS: BP 122/69; PULSE 91; RESP 20; TEMP 37; O2SAT 93
[2018-12-07 06:42] LABS: Absolute Lymphocyte Count 1.62 X10^3/ul (0.83-4.51); Absolute Neutrophil Count 7.6 X10^3/uL (2.0-7.7); Basophil# 0.03 X10^3/uL; Basophil% 0.3 % (0-1); Eosinophil# 0.13 X10^3/uL; Eosinophils% 1.2 % (0-5); Hematocrit 38.1 % (40-54); Hemoglobin 12.4 g/dl (13.0-16.5); Lymphocyte # 1.62 X10^3/ul (4.0); Lymphocyte % 15.4 % (19-41); Mean Corp Hgb Conc 32.5 g/gl (32-36); Mean Corpuscular Hgb 30.2 pg (27.0-32.0); Mean Corpuscular Volume 92.7 fL (80-94); Mean Platelet Vol. 9.9 fl (6.2-12.0); Monocyte% 9.5 % (0-10); Neutrophil # 7.61 X10^3/uL (2.7-7.7); Neutrophil % 72.5 % (47-70); Platelet Count 313 K/mm3 (150-450); RBC Distribution Width CV 12.3 % (11.6-14.6); RBC Distribution Width SD 40.6 fl (35.1-43.9); Red Blood Count 4.11 M/mm3 (4.6-6.2); White Blood Count 10.5 K/mm3 (4.4-11.0)
[2018-12-07 06:52] LABS: POSITIVE COUNT NO; POSITIVE DIFFERENTIAL NO; POSITIVE MORPHOLOGY NO
[2018-12-07 07:02] LABS: Anion Gap 6 (5-15); BUN 21 mg/dL (7-18); BUN/Creat Ratio 26.6 RATIO (10-20); Calcium,Total 8.9 mg/dL (8.5-10.1); Chloride 102 mmol/L (98-107); Creatinine, Serum 0.79 mg/dL (0.70-1.30); EST Glomerular Filtration Rate 102 mL/min (>60); Est Glom Filt Rate - Afr Amer 124 mL/min (>60); Estimated Creatinine Clearance 61.51 ml/min; Glucose 118 mg/dL (74-106); Potassium 3.6 mmol/L (3.5-5.1); Sodium Level 136 mmol/L (136-145)
[2018-12-07 08:54] VITALS: BP 150/77; PULSE 97; RESP 16; TEMP 36.9; O2SAT 96
[2018-12-07] MEDS: hydroCHLOROthiazide 25 MG Tablet PO (09:48)
[2018-12-07] MEDS: Aspirin E.C. 81 MG Tablet PO (09:48)
[2018-12-07] MEDS: Losartan Potassium 100 MG Tablet PO (09:48)
[2018-12-07] MEDS: amLODIPine 5 MG Tablet PO (09:49)
[2018-12-07] MEDS: Heparin Injection (Vial) 5,000 UNIT/ML VIAL 5000 UNIT SC (09:49)
--- NOTE | 2018-12-07 13:09 | DCINST_ITS ---
- Discharge Diagnoses Current Active Problems: Current Active and Chronic Problems Edema leg (Acute) Cellulitis of right foot (Acute) Right ankle pain (Acute) Right foot pain (Acute) Redness of the right foot (Acute) You will use the following diet at home:: Regular Your food should be the consistency of: Regular Your liquids should be the consistency of: Regular/Thin Discharge Activity: Return to Normal Activity, No Restrictions Call your doctor if you observe: Fever of 101 or Higher, Shortness of breath, Dizziness, Fainting spells, Swelling in the ankles, Chest pain, Increased palpitations (irregular heartbeat) Allergies/Adverse Reactions: Allergies simvastatin Adverse Reaction (Verified 12/05/18 23:14) Upset Stomach Medications to take at Discharge Amlodipine [Norvasc] 5 mg PO DAILY 11/24/18 Aspirin [Aspir 81] 81 mg PO DAILY 11/24/18 Hydrochlorothiazide [Hctz] 25 mg PO DAILY 11/24/18 Losartan Potassium [Cozaar] 100 mg PO DAILY 11/24/18 Vardenafil HCl [Levitra] 20 mg PO DAILY PRN PRN 11/24/18 cycloBENZAPRine HCl [Flexeril] 10 mg PO TID 11/24/18 Cephalexin [Keflex] 500 mg PO Q8 #15 capsule 12/07/18 The following prescriptions were given: Cephalexin [Keflex] 500 mg PO Q8 #15 capsule Primary Care Physician: Miguelangel Livingston MD [Primary Care Provider] - Please follow up with your Primary Care Physician in: 3-5 days Test Results: Test results from this visit will be discussed in further detail at your follow- up appointment, if applicable. Please Follow Up With: [facility] - [phone] When: 1 week
--- NOTE | 2018-12-07 13:10 | PCM.DC.SUM ---
Discharge Date and Diagnosis - Problem List Patient Problems: Active and Suspected Problems Edema leg (Acute) Cellulitis of right foot (Acute) Right ankle pain (Acute) Right foot pain (Acute) Redness of the right foot (Acute) Date of Admission: 12/06/18 Date of Discharge: 12/07/18 - Primary Discharge Diagnosis Active and Suspected Problems Edema leg (Acute) Cellulitis of right foot (Acute) Right ankle pain (Acute) Right foot pain (Acute) Redness of the right foot (Acute) - Secondary Discharge Diagnosis Chronic Problems Hypertension (Chronic) Hospital Course and Treatment Imaging Results: XR Right Foot: IMPRESSION: No fracture or dislocation in the right foot. No definite radiographic findings of osteomyelitis. Mild soft tissue swelling. Plantar calcaneal spur. XR Right Ankle: IMPRESSION: No fracture or dislocation in the right ankle. No definite radiographic findings of osteomyelitis. Operations: None Procedures: 2-D Echocardiogram - Interpretation Summary The study was technically difficult. Contrast injection was performed. Left ventricular systolic function is normal. The estimated ejection fraction is 65 %. There is mild mitral annular calcification. Trivial mitral valve insufficiency. Trivial tricuspid valve insufficiency. Mild aortic stenosis. Unable to estimate RV systolic pressure/pulmonary artery pressure due to technically difficult study. Diastolic function is indeterminate. Summary of Care Provided: Per HPI: The patient is a 73 year old M was seen in the emergency room at [facility] after being brought in by squad with complaints of right foot pain and redness. He states that his right foot began hurting him on 12/04/2018 and on 12/05/2018 he noticed redness and increased pain but did not come to the emergency room right away, finally he was instructed by his family to go to the ER when they became concerned about his symptoms. Patient denies fevers or chills. Patient had been treated for cellulitis of his right hand and was hospitalized here at [place] on November 24 and of this year, he received treatment with IV Ancef during his hospitalization was discharged on Keflex on 11/25/2018. Patient was seen in follow-up for his hospitalization on 11/28/2018 in a physician's office and he was instructed to go to the emergency room at [facility] due to continued redness of his right hand and was admitted on 11/28/2018 for cellulitis of his right hand unresponsive to outpatient treatment with the Keflex. His family states that he was treated in part with Unasyn in the hospital at [facility], they feel he had additional antibiotics also there but they do not know which antibiotics were used. He was discharged home on 12/02/2018 on Augmentin. Patient was still taking Augmentin when he came to the emergency room for evaluation on 12/05/2018 here. Work-up in the emergency room included labs which showed an elevated white blood cell count at 16.5, hemoglobin was 12.9, lactic acid was normal at 0.8, BUN was 36, sodium was 132, patient's temperature was 99.5. Patient was given IV Zosyn and IV vancomycin in the emergency room, he will be admitted to [facility] for cellulitis of the right foot. Hospital Course: 1. Sepsis secondary to right foot cellulitis which is present on [id number] male presenting with a small area of cellulitis on his right foot presenting with tachycardia, leukocytosis, and pain was admitted to the hospital for IV antibiotic therapy. He was started on vancomycin and his leukocytosis resolved as it is sepsis. Infectious disease was consulted who felt that he would be able to be discharged on Keflex for 5 days. Also podiatry was consulted for evaluation of the foot and they obtained x-rays which were negative for osteomyelitis or trauma. They would like to see him in the foot and ankle center in 1 week. This was discussed with the patient who understood and agreed to the plan. He states that his pain is much better today. Also because the patient had a heart murmur and has had 2 recurrent infections in the last 2 weeks, an echo was obtained which was grossly normal. 2. His other medical diagnoses were evaluated and his home medications were continued where appropriate Patient Problems: Active and Suspected Problems Edema leg (Acute) Cellulitis of right foot (Acute) Right ankle pain (Acute) Right foot pain (Acute) Redness of the right foot (Acute) - Physical Exam General: Alert, Oriented x3, Cooperative, No apparent distress HEENT: Atraumatic, PERRLA, EOMI, Normocephalic Oral: Moist Mucosa Neck: Supple, No JVD Lungs: Clear to auscultation, Normal air movement, No rhonchi, No wheeze, No rales, Diminished Cardiovascular: Regular rate, Regular Rhythm, Normal S1, Normal S2, Murmur - 2/6 COLIN Abdomen: Soft, Non Tender, Non-Distended, No Hepato-splenomegaly Extremities: No edema, Capillary Refill Less than 3 Seconds Skin: No breakdown, Rash Present - Small area of light cellulitis on the dorsal aspect of the right foot. Improving. No fluctuance or abscess Neurological: Neuro grossly intact, Sensory exam intact to light touch and pain Psych/Mental Status: Normal Affect, Appropriate Vital Signs Temp Pulse Resp BP Pulse Ox 98.4 F 97 16 150/77 H 96 12/07/18 08:54 12/07/18 08:54 12/07/18 08:54 12/07/18 08:54 12/07/18 08:54 Oxygen Delivery Method Room Air Weight: 215 lb 6.266 oz Body Mass Index (BMI) 33.7 Intake and Output for Last 24 Hours 12/05/18 12/06/18 12/07/18 23:59 23:59 23:59 Intake Total 1242 / 1242 904 / 904 Output Total 450 / 450 450 / 450 Balance 792 / 792 454 / 454 Laboratory Tests Past 24 Hrs 12/05/18 12/07/18 12/07/18 23:55 06:00 06:00 WBC 10.5 RBC 4.11 L Hgb 12.4 L Hct 38.1 L MCV 92.7 MCH 30.2 MCHC 32.5 RDW 12.3 RDW Differential 40.6 Plt Count 313 MPV 9.9 Immature Gran % (Auto) 1.100 H Neut % (Auto) 72.5 H Lymph % (Auto) 15.4 L [place] % (Auto) 9.5 Eos % (Auto) 1.2 Baso % (Auto) 0.3 Absolute Neuts (auto) 7.6 Absolute Lymphs (auto) 1.62 Total Counted Not Reportable Diff Path Review Reviewed Sodium 136 Potassium 3.6 Chloride 102 Carbon Dioxide 28.0 Anion Gap 6 BUN 21 H Creatinine 0.79 Estim Creat Clear Calc 61.51 Est GFR (MDRD) Af Amer 124 Est GFR (MDRD) Non-Af 102 BUN/Creatinine Ratio 26.6 H Glucose 118 H Calcium 8.9 Discharge Activity: Return to Normal Activity, No Restrictions Call your doctor if you observe: Fever of 101 or Higher, Shortness of breath, Dizziness, Fainting spells, Swelling in the ankles, Chest pain, Increased palpitations (irregular heartbeat) Home Medications: Medications to take at Discharge Amlodipine [Norvasc] 5 mg PO DAILY 11/24/18 Aspirin [Aspir 81] 81 mg PO DAILY 11/24/18 Hydrochlorothiazide [Hctz] 25 mg PO DAILY 11/24/18 Losartan Potassium [Cozaar] 100 mg PO DAILY 11/24/18 Vardenafil HCl [Levitra] 20 mg PO DAILY PRN PRN 11/24/18 cycloBENZAPRine HCl [Flexeril] 10 mg PO TID 11/24/18 Cephalexin [Keflex] 500 mg PO Q8 #15 capsule 12/07/18 Following Prescrptions Were Given to Patient: Cephalexin [Keflex] 500 mg PO Q8 #15 capsule Primary Care Physician: Miguelangel Livingston MD [Primary Care Provider] - Please follow up with your Primary Care Physician in: 3-5 days Please Follow Up With: [facility] - [phone] When: 1 week Disposition: Home Minutes spent on discharge:: 35 Patient Condition:: Stable Medical Necessity - Tobacco Use Smoking Status: Never smoker Tobacco Use: Non-smoker Meaningful Use Info Meaningful Use Diagnoses (Choose all that apply): None applicable Code Visit Inpatient E&M: 15005 Disch Hosp
[2018-12-07 13:54] VITALS: BP 133/65; PULSE 102; RESP 16; TEMP 37; O2SAT 93
--- NOTE | 2018-12-07 15:17 | PCM.PN.ID ---
Patient Problems: Active and Suspected Problems Edema leg (Acute) Subjective: Feeling better, no pain in foot, no fever - Physical Exam General: Alert, Cooperative, No apparent distress Lungs: Clear to auscultation, Normal air movement Cardiovascular: Regular rate, Regular Rhythm Abdomen: Soft, Non Tender, Non-Distended Skin: No rashes - foot wrapped Vital Signs Temp Pulse Resp BP Pulse Ox 98.6 F 102 H 16 133/65 H 93 12/07/18 13:54 12/07/18 13:54 12/07/18 13:54 12/07/18 13:54 12/07/18 13:54 Oxygen Delivery Method Room Air Weight: 97.7 kg Body Mass Index (BMI) 33.7 Intake and Output for Last 24 Hours 12/05/18 12/06/18 12/07/18 23:59 23:59 23:59 Intake Total 1242 / 1242 904 / 904 Output Total 450 / 450 450 / 450 Balance 792 / 792 454 / 454 Laboratory Tests Past 24 Hrs 12/07/18 12/07/18 06:00 06:00 WBC 10.5 RBC 4.11 L Hgb 12.4 L Hct 38.1 L MCV 92.7 MCH 30.2 MCHC 32.5 RDW 12.3 RDW Differential 40.6 Plt Count 313 MPV 9.9 Immature Gran % (Auto) 1.100 H Neut % (Auto) 72.5 H Lymph % (Auto) 15.4 L [place] % (Auto) 9.5 Eos % (Auto) 1.2 Baso % (Auto) 0.3 Absolute Neuts (auto) 7.6 Absolute Lymphs (auto) 1.62 Total Counted Not Reportable Sodium 136 Potassium 3.6 Chloride 102 Carbon Dioxide 28.0 Anion Gap 6 BUN 21 H Creatinine 0.79 Estim Creat Clear Calc 61.51 Est GFR (MDRD) Af Amer 124 Est GFR (MDRD) Non-Af 102 BUN/Creatinine Ratio 26.6 H Glucose 118 H Calcium 8.9 Medical Necessity - Tobacco Use Smoking Status: Never smoker Tobacco Use: Non-smoker Route of nutrition/ use of supplements: [] Nutritional Intake: [] IV Site: [] Pfeiffer Catheter: [] - Assessment/Plan Antibiotics: [] Assessment/Plan: [] Active and Suspected Problems Right foot pain (Acute) Redness of the right foot (Acute) sepsis (tachycardia, leukocytosis on admit) due to R foot cellulitis - much improved at this point. Ok for d/c home on short course of keflex. Will follow, d/w Dr. Freeman.
== END 2018-12-07 14:25 | disposition home or self-care (01) | DRG 872 ==
LOC: ED 23:47 → MS3 12-06 01:24
PROVIDERS: Admitting Provider Internal Medicine; Emergency Provider Emergency Medicine; Family Provider Family Medicine; PCP Family Medicine; Referring Provider Internal Medicine; Visit Provider Family Medicine
DX: A41.9 Sepsis, unspecified organism (principal); L03.115 Cellulitis of right lower limb; I10 Essential (primary) hypertension; R01.1 Cardiac murmur, unspecified; E78.00 Pure hypercholesterolemia, unspecified; Z86.19 Personal history of other infectious and parasitic diseases; Z86.718 Personal history of other venous thrombosis and embolism; Z86.711 Personal history of pulmonary embolism; Z79.82 Long term (current) use of aspirin; Z79.899 Other long term (current) drug therapy
CPT/HCPCS: 36415; 73610; 73630; 80048; 83605; 85025; 87040; 93306; 97162; 97166; 97530; 99285; J7030; J7040; J7050; Q9957; A4216; C8929

== ENCOUNTER → 2019-01-13 13:39 | Outpatient (CLI) | payer MEDICARE, SELFPAY ==
--- NOTE | 2019-01-13 13:42 | VDLE_ITS ---
Reason For Study: edema RIGHT LEFT GSV is normal. CFV is compressible, spontaneous, phasic, CFV is compressible, spontaneous, phasic, competent, and demonstrates normal competent and demonstrates normal augmentation. augmentation. Prox and Mid FV are compressible. Dist FV, POP V, T/P Trunk, PTV, Peroneal V, and Gastroc V are dilated and noncompressible. Procedure Exam performed in department. The exam was diagnostic. A preliminary report was called and/or faxed to Dr. Livingston's office. Interpretation Summary Right greater saphenous vein appears patent and compressible segmentally. Acute deep venous thrombosis right distal femoral vein and popliteal, tibiperoneal trunk, posterior tibial, peroneal, and gastrocnemius veins. Normal flow pattern left common femoral vein Ordering Physician: Miguelangel Livingston Performed By: Samir Pratt RVT
== END ==
PROVIDERS: Family Provider Family Medicine; PCP Family Medicine; Referring Provider Family Medicine; Visit Provider Family Medicine
DX: R60.0 Localized edema (principal)
CPT/HCPCS: 93971

== ENCOUNTER → 2019-03-14 | Outpatient (CLI) | payer MEDICARE, SELFPAY ==
[2019-03-14 15:27] LABS: Absolute Lymphocyte Count 1.98 X10^3/uL (0.83-4.51); Absolute Neutrophil Count 7.4 X10^3/uL (2.0-7.7); Basophil# 0.05 X10^3/uL; Basophil% 0.5 % (0-1); Eosinophil# 0.11 X10^3/uL; Hematocrit 42.8 % (40-54); Hemoglobin 13.9 g/dL (13.0-16.5); Lymphocyte # 1.98 X10^3/ul (4.0); Lymphocyte % 18.7 % (19-41); Mean Corp Hgb Conc 32.5 g/dL (32-36); Mean Corpuscular Hgb 30.8 pg (27.0-32.0); Mean Corpuscular Volume 94.7 fL (80-94); Mean Platelet Vol. 10.6 fl (6.2-12.0); Monocyte# 0.81 X10^3/uL; Monocyte% 7.7 % (0-10); NRBC Flagged by Analyzer 0 % (0-5); Neutrophil # 7.43 X10^3/uL (2.7-7.7); Neutrophil % 70.2 % (47-70); Platelet Count 240 K/mm3 (150-450); RBC Distribution Width CV 14.1 % (11.6-14.6); RBC Distribution Width SD 49.1 fl (35.1-43.9); Red Blood Count 4.52 M/mm3 (4.6-6.2); White Blood Count 10.6 K/mm3 (4.4-11.0)
[2019-03-14 15:49] LABS: Erythrocyte Sedimentation Rate 32 mm/hr (0-20)
[2019-03-14 15:55] LABS: ALB/GLOB Ratio 0.9 RATIO (0.9-2.4); AST(SGOT) 26 U/L (15-37); Alanine Aminotransfer ALT/SGPT 46 U/L (16-61); Albumin, Serum 3.8 g/dL (3.2-5.0); Alkaline Phosphatase 76 U/L (45-117); Anion Gap 6 (5-15); BUN 21 mg/dL (7-18); BUN/Creat Ratio 22.4 RATIO (10-20); CRP 6.65 mg/L (0.0-3.0); Calcium,Total 9.1 mg/dL (8.5-10.1); Chloride 106 mmol/L (98-107); Creatinine, Serum 0.94 mg/dL (0.70-1.30); EST Glomerular Filtration Rate 84 mL/min (>60); Est Glom Filt Rate - Afr Amer 101 mL/min (>60); Globulin 4.1 g/dL (2.2-4.2); Glucose 87 mg/dL (74-106); Potassium 3.7 mmol/L (3.5-5.1); Protein, Total 7.9 g/dL (6.4-8.2); Rheumatoid Factor < 10.0 IU/mL (<15); Sodium Level 141 mmol/L (136-145)
[2019-03-15 09:29] LABS: Hepatitis B Surface Antibody Non-Reactive; Hepatitis B Surface Antigen Non-Reactive (Nonreactive); Hepatitis C Antibody Non-Reactive (Nonreactive); Vitamin D,25 Hydroxy 21.6 ng/mL (29.95-100.01)
[2019-03-17 12:30] LABS: CCP IgG Antibodies 8 units (0-19); Hepatitis B Core AB IgM Negative (Negative)
[2019-03-17 12:35] LABS: ANTINUCLEAR ANTIBODIES DIRECT Negative (Negative)
== END | disposition home or self-care (01) ==
LOC: MTLAB 13:31
PROVIDERS: Family Provider Family Medicine; PCP Family Medicine; Referring Provider Internal Medicine Rheumatology; Visit Provider Internal Medicine Rheumatology
DX: M06.4 Inflammatory polyarthropathy (principal); I10 Essential (primary) hypertension; I82.891 Chronic embolism and thrombosis of other specified veins
CPT/HCPCS: 36415; 80053; 82306; 85025; 85652; 86038; 86140; 86200; 86431; 86705; 86706; 86803; 87340

== ENCOUNTER → 2019-06-07 11:44 | Outpatient (CLI) | payer MEDICARE, SELFPAY ==
[2019-06-07 12:58] LABS: Protein, Urine (Random) 58.1 mg/dL (<11.9); Protein:Creat Ratio 480 mg/g CRE (0-200)
== END ==
PROVIDERS: Family Provider Family Medicine; PCP Family Medicine; Visit Provider Internal Medicine Nephrology
DX: R80.9 Proteinuria, unspecified (principal)
CPT/HCPCS: 82570; 84156

== ENCOUNTER → 2019-06-13 12:01 | Outpatient (CLI) | payer MEDICARE, SELFPAY ==
--- NOTE | 2019-06-13 12:03 | US_ITS ---
STUDY: RENAL ULTRASOUND - COMPLETE REASON FOR EXAM: Male, 73 years old. Proteinuria. Born with one kidney. TECHNIQUE: Ultrasound evaluation of the kidneys was performed with real-time and static arredondo-scale imaging. COMPARISON: None. FINDINGS: RIGHT KIDNEY: Congenitally absent. LEFT KIDNEY: Normal location of the left kidney, which is normal in size. The left kidney measures 13.6 x 8.7 x 7.0 cm. There is a normal cortex of the left kidney. The renal cortex measures 1.8 cm. There is no left renal mass or cyst. There are no left renal calculi. There is no left hydronephrosis. DISTAL LEFT URETER: There is non-visualization of the distal left ureter. There is no demonstrated left ureterovesical junction calculus. There is a visualized left ureteral jet. BLADDER: The distended urinary bladder has a volume of 153.8 ml. The empty urinary bladder has a volume of 51.91 ml. There is a 4 mm normal wall thickness of the distended urinary bladder. There is a suspicious bladder mass measuring 2.5 x 1.6 x 1.7 cm. There are no demonstrated bladder calculi. US/Kidney and Bladder IMPRESSION: 1. Normal ultrasound of the left kidney. 2. Congenital absence of the right kidney. 3. Suspicious bladder wall mass measuring 2.5 x 1.6 x 1.7 cm. RECOMMENDATION: Cystoscopy for further evaluation. Electronically Signed: Oleksandr Petersen MD at 13:19 EST , Service support ,
== END ==
PROVIDERS: Family Provider Family Medicine; PCP Family Medicine; Referring Provider Internal Medicine Nephrology; Visit Provider Internal Medicine Nephrology
DX: R80.9 Proteinuria, unspecified (principal)
CPT/HCPCS: 76770

== ENCOUNTER → 2019-06-20 08:57 | Outpatient (CLI) | payer MEDICARE, SELFPAY ==
[2019-06-20 10:10] LABS: Absolute Lymphocyte Count 1.38 X10^3/uL (0.83-4.51); Absolute Neutrophil Count 5.8 X10^3/uL (2.0-7.7); Basophil# 0.04 X10^3/uL; Basophil% 0.5 % (0-1); Eosinophil# 0.17 X10^3/uL; Eosinophils% 2.1 % (0-5); Hematocrit 42.7 % (40-54); Hemoglobin 13.9 g/dL (13.0-16.5); Lymphocyte # 1.38 X10^3/ul (4.0); Lymphocyte % 17.1 % (19-41); Mean Corp Hgb Conc 32.6 g/dL (32-36); Mean Corpuscular Volume 95.3 fL (80-94); Mean Platelet Vol. 10.5 fl (6.2-12.0); Monocyte# 0.62 X10^3/uL; Monocyte% 7.7 % (0-10); NRBC Flagged by Analyzer 0 % (0-5); Neutrophil # 5.75 X10^3/uL (2.7-7.7); Neutrophil % 71.4 % (47-70); Platelet Count 210 K/mm3 (150-450); RBC Distribution Width CV 12.5 % (11.6-14.6); RBC Distribution Width SD 43.2 fl (35.1-43.9); Red Blood Count 4.48 M/mm3 (4.6-6.2); White Blood Count 8.1 K/mm3 (4.4-11.0)
[2019-06-20 10:41] LABS: AST(SGOT) 23 U/L (15-37); Alanine Aminotransfer ALT/SGPT 39 U/L (16-61); Albumin, Serum 3.8 g/dL (3.2-5.0); Alkaline Phosphatase 71 U/L (45-117); Anion Gap 4 (5-15); BUN 18 mg/dL (7-18); Chloride 105 mmol/L (98-107); Creatinine, Serum 1.06 mg/dL (0.70-1.30); EST Glomerular Filtration Rate 73 mL/min (>60); Est Glom Filt Rate - Afr Amer 88 mL/min (>60); Globulin 3.8 g/dL (2.2-4.2); Glucose 119 mg/dL (74-106); Potassium 3.9 mmol/L (3.5-5.1); Protein, Total 7.6 g/dL (6.4-8.2); Sodium Level 140 mmol/L (136-145)
== END ==
PROVIDERS: Family Provider Family Medicine; PCP Family Medicine; Referring Provider Internal Medicine Rheumatology; Visit Provider Internal Medicine Rheumatology
DX: M06.4 Inflammatory polyarthropathy (principal); I10 Essential (primary) hypertension; I82.891 Chronic embolism and thrombosis of other specified veins
CPT/HCPCS: 36415; 80053; 85025

== ENCOUNTER → 2019-10-18 10:03 | Outpatient (CLI) | payer MEDICARE, SELFPAY ==
[2019-10-18 12:11] LABS: Absolute Lymphocyte Count 1.57 X10^3/uL (0.83-4.51); Absolute Neutrophil Count 6.8 X10^3/uL (2.0-7.7); Basophil# 0.05 X10^3/uL; Basophil% 0.5 % (0-1); Eosinophil# 0.13 X10^3/uL; Eosinophils% 1.4 % (0-5); Hematocrit 42.5 % (40-54); Hemoglobin 13.8 g/dL (13.0-16.5); Lymphocyte # 1.57 X10^3/ul (4.0); Lymphocyte % 16.6 % (19-41); Mean Corp Hgb Conc 32.5 g/dL (32-36); Mean Corpuscular Hgb 30.1 pg (27.0-32.0); Mean Corpuscular Volume 92.6 fL (80-94); Mean Platelet Vol. 10.7 fl (6.2-12.0); Monocyte% 7.4 % (0-10); NRBC Flagged by Analyzer 0 % (0-5); Neutrophil # 6.82 X10^3/uL (2.7-7.7); Neutrophil % 72.2 % (47-70); Platelet Count 284 K/mm3 (150-450); RBC Distribution Width CV 12.6 % (11.6-14.6); Red Blood Count 4.59 M/mm3 (4.6-6.2); White Blood Count 9.5 K/mm3 (4.4-11.0)
[2019-10-18 12:25] LABS: ALB/GLOB Ratio 0.9 RATIO (0.9-2.4); AST(SGOT) 20 U/L (15-37); Alanine Aminotransfer ALT/SGPT 35 U/L (16-61); Albumin, Serum 3.6 g/dL (3.2-5.0); Alkaline Phosphatase 74 U/L (45-117); Anion Gap 4 (5-15); BUN 24 mg/dL (7-18); BUN/Creat Ratio 18.5 RATIO (10-20); Calcium,Total 9.5 mg/dL (8.5-10.1); Chloride 104 mmol/L (98-107); EST Glomerular Filtration Rate 57 mL/min (>60); Est Glom Filt Rate - Afr Amer 69 mL/min (>60); Globulin 4.2 g/dL (2.2-4.2); Glucose 109 mg/dL (74-106); Phosphorus 3.3 mg/dL (2.5-4.9); Potassium 3.8 mmol/L (3.5-5.1); Protein, Total 7.8 g/dL (6.4-8.2); Protein, Urine (Random) 75.4 mg/dL (<11.9); Protein:Creat Ratio 527 mg/g CRE (0-200); Sodium Level 138 mmol/L (136-145)
== END ==
PROVIDERS: Internal Medicine Nephrology; Family Provider Family Medicine; PCP Family Medicine; Referring Provider Internal Medicine Rheumatology; Visit Provider Internal Medicine Rheumatology
DX: M06.4 Inflammatory polyarthropathy (principal); I10 Essential (primary) hypertension; I82.891 Chronic embolism and thrombosis of other specified veins; E78.5 Hyperlipidemia, unspecified; I35.0 Nonrheumatic aortic (valve) stenosis
CPT/HCPCS: 36415; 80053; 82570; 84100; 84156; 85025

== ENCOUNTER → 2019-10-18 10:06 | Outpatient (CLI) | payer MEDICARE, SELFPAY | PROVIDERS: PCP Family Medicine; Referring Provider Internal Medicine Nephrology; Visit Provider Internal Medicine Nephrology | DX: R80.9 Proteinuria, unspecified (principal) ==

== ENCOUNTER → 2019-11-20 11:00 | Outpatient (CLI) | payer MEDICARE, SELFPAY ==
[2019-11-20 12:44] LABS: Anion Gap 7 (5-15); BUN 16 mg/dL (7-18); BUN/Creat Ratio 15.5 RATIO (10-20); Calcium,Total 9.3 mg/dL (8.5-10.1); Chloride 101 mmol/L (98-107); Creatinine, Serum 1.03 mg/dL (0.70-1.30); EST Glomerular Filtration Rate 75 mL/min (>60); Est Glom Filt Rate - Afr Amer 91 mL/min (>60); Glucose 68 mg/dL (74-106); Potassium 3.6 mmol/L (3.5-5.1); Sodium Level 139 mmol/L (136-145); Uric Acid 7.6 mg/dL (3.5-7.2)
== END ==
PROVIDERS: PCP Family Medicine; Referring Provider Internal Medicine Nephrology; Visit Provider Internal Medicine Nephrology
DX: N25.9 Disorder resulting from impaired renal tubular function, unspecified (principal); M25.50 Pain in unspecified joint
CPT/HCPCS: 36415; 80048; 84550

== ENCOUNTER → 2019-12-13 11:04 | Outpatient (CLI) | payer MEDICARE, SELFPAY ==
[2019-12-13 12:43] LABS: Absolute Lymphocyte Count 1.53 X10^3/uL (0.83-4.51); Absolute Neutrophil Count 5.7 X10^3/uL (2.0-7.7); Basophil# 0.03 X10^3/uL; Basophil% 0.4 % (0-1); Eosinophil# 0.08 X10^3/uL; Hematocrit 42.2 % (40-54); Hemoglobin 13.8 g/dL (13.0-16.5); Lymphocyte # 1.53 X10^3/ul (4.0); Lymphocyte % 18.8 % (19-41); Mean Corp Hgb Conc 32.7 g/dL (32-36); Mean Corpuscular Hgb 30.9 pg (27.0-32.0); Mean Corpuscular Volume 94.6 fL (80-94); Mean Platelet Vol. 11.4 fl (6.2-12.0); Monocyte# 0.71 X10^3/uL; Monocyte% 8.7 % (0-10); NRBC Flagged by Analyzer 0 % (0-5); Neutrophil # 5.71 X10^3/uL (2.7-7.7); Platelet Count 223 K/mm3 (150-450); RBC Distribution Width CV 13.2 % (11.6-14.6); RBC Distribution Width SD 45.3 fl (35.1-43.9); Red Blood Count 4.46 M/mm3 (4.6-6.2); White Blood Count 8.2 K/mm3 (4.4-11.0)
[2019-12-13 12:56] LABS: AST(SGOT) 21 U/L (15-37); Alanine Aminotransfer ALT/SGPT 35 U/L (16-61); Albumin, Serum 3.9 g/dL (3.2-5.0); Alkaline Phosphatase 75 U/L (45-117); Anion Gap 7 (5-15); BUN 22 mg/dL (7-18); BUN/Creat Ratio 18.5 RATIO (10-20); Calcium,Total 9.2 mg/dL (8.5-10.1); Chloride 102 mmol/L (98-107); Creatinine, Serum 1.19 mg/dL (0.70-1.30); EST Glomerular Filtration Rate 64 mL/min (>60); Est Glom Filt Rate - Afr Amer 77 mL/min (>60); Globulin 3.9 g/dL (2.2-4.2); Glucose 115 mg/dL (74-106); Protein, Total 7.8 g/dL (6.4-8.2); Sodium Level 138 mmol/L (136-145)
== END ==
PROVIDERS: PCP Family Medicine; Referring Provider Internal Medicine Rheumatology; Visit Provider Internal Medicine Rheumatology
DX: M06.4 Inflammatory polyarthropathy (principal); I10 Essential (primary) hypertension; I82.891 Chronic embolism and thrombosis of other specified veins; E78.5 Hyperlipidemia, unspecified; I35.0 Nonrheumatic aortic (valve) stenosis
CPT/HCPCS: 36415; 80053; 85025

== ENCOUNTER → 2020-04-22 09:34 | Outpatient (CLI) | payer MEDICARE, SELFPAY ==
[2020-04-22 13:19] LABS: BUN 20 mg/dL (7-18); Calcium,Total 9.3 mg/dL (8.5-10.1); Chloride 102 mmol/L (98-107); Creatinine, Serum 1.05 mg/dL (0.70-1.30); EST Glomerular Filtration Rate 73 mL/min (>60); Est Glom Filt Rate - Afr Amer 89 mL/min (>60); Glucose 103 mg/dL (74-106); Phosphorus 3.4 mg/dL (2.5-4.9); Potassium 4.1 mmol/L (3.5-5.1); Sodium Level 137 mmol/L (136-145)
[2020-04-22 13:32] LABS: Protein, Urine (Random) 58.3 mg/dL (<11.9); Protein:Creat Ratio 419 mg/g CRE (0-200)
== END ==
LOC: LAB.FUTURE 09:35 → MTLAB 10:02
PROVIDERS: PCP Family Medicine; Referring Provider Internal Medicine Nephrology; Visit Provider Internal Medicine Nephrology
DX: N25.9 Disorder resulting from impaired renal tubular function, unspecified (principal); M25.50 Pain in unspecified joint; Z90.5 Acquired absence of kidney
CPT/HCPCS: 36415; 80069; 82570; 84156

== ENCOUNTER → 2020-05-01 17:52 | Outpatient (CLI) | payer MEDICARE, SELFPAY | PROVIDERS: PCP Family Medicine; Referring Provider Family Medicine; Visit Provider Family Medicine | DX: Z03.818 Encounter for observation for suspected exposure to other biological agents ruled out (principal) | CPT/HCPCS: 87635; C9803; U0003 ==

== ENCOUNTER → 2020-06-10 11:28 | Outpatient (CLI) | payer MEDICARE, SELFPAY ==
[2020-06-10 15:16] LABS: Absolute Lymphocyte Count 1.36 X10^3/uL (0.83-4.51); Basophil# 0.03 X10^3/uL; Basophil% 0.4 % (0-1); Eosinophils% 1.2 % (0-5); Hematocrit 44.1 % (40-54); Hemoglobin 14.1 g/dL (13.0-16.5); Lymphocyte # 1.36 X10^3/ul (4.0); Lymphocyte % 16.5 % (19-41); Mean Corpuscular Hgb 30.5 pg (27.0-32.0); Mean Corpuscular Volume 95.2 fL (80-94); Monocyte# 0.71 X10^3/uL; Monocyte% 8.6 % (0-10); NRBC Flagged by Analyzer 0 % (0-5); Neutrophil # 5.97 X10^3/uL (2.7-7.7); Neutrophil % 72.2 % (47-70); Platelet Count 223 K/mm3 (150-450); RBC Distribution Width CV 12.5 % (11.6-14.6); RBC Distribution Width SD 43.9 fl (35.1-43.9); Red Blood Count 4.63 M/mm3 (4.6-6.2); White Blood Count 8.3 K/mm3 (4.4-11.0)
[2020-06-10 15:37] LABS: ALB/GLOB Ratio 1.1 RATIO (0.9-2.4); AST(SGOT) 19 U/L (15-37); Alanine Aminotransfer ALT/SGPT 33 U/L (16-61); Alkaline Phosphatase 90 U/L (45-117); Anion Gap 3 (5-15); BUN 18 mg/dL (7-18); BUN/Creat Ratio 16.5 RATIO (10-20); Calcium,Total 9.4 mg/dL (8.5-10.1); Chloride 105 mmol/L (98-107); Creatinine, Serum 1.09 mg/dL (0.70-1.30); EST Glomerular Filtration Rate 70 mL/min (>60); Est Glom Filt Rate - Afr Amer 85 mL/min (>60); Globulin 3.7 g/dL (2.2-4.2); Glucose 90 mg/dL (74-106); Potassium 3.7 mmol/L (3.5-5.1); Protein, Total 7.7 g/dL (6.4-8.2); Sodium Level 139 mmol/L (136-145)
== END ==
PROVIDERS: PCP Family Medicine; Referring Provider Internal Medicine Rheumatology; Visit Provider Internal Medicine Rheumatology
DX: M06.4 Inflammatory polyarthropathy (principal); I10 Essential (primary) hypertension; I82.891 Chronic embolism and thrombosis of other specified veins; E78.5 Hyperlipidemia, unspecified; I35.0 Nonrheumatic aortic (valve) stenosis
CPT/HCPCS: 36415; 80053; 85025

== ENCOUNTER → 2020-12-03 08:53 | Outpatient (CLI) | payer MEDICARE, SELFPAY ==
[2020-12-03 10:16] LABS: Absolute Lymphocyte Count 1.31 X10^3/uL (0.83-4.51); Absolute Neutrophil Count 5.5 X10^3/uL (2.0-7.7); Basophil# 0.04 X10^3/uL; Basophil% 0.5 % (0-1); Eosinophil# 0.15 X10^3/uL; Eosinophils% 1.9 % (0-5); Hematocrit 41.8 % (40-54); Hemoglobin 13.4 g/dL (13.0-16.5); Lymphocyte # 1.31 X10^3/ul (0.83-4.51); Lymphocyte % 16.9 % (19-41); Mean Corp Hgb Conc 32.1 g/dL (32-36); Mean Corpuscular Hgb 30.4 pg (27.0-32.0); Mean Corpuscular Volume 94.8 fL (80-94); Mean Platelet Vol. 10.6 fl (6.2-12.0); Monocyte# 0.62 X10^3/uL; NRBC Flagged by Analyzer 0 % (0-5); Neutrophil # 5.54 X10^3/uL (2.7-7.7); Neutrophil % 71.7 % (47-70); Platelet Count 230 K/mm3 (150-450); RBC Distribution Width CV 12.5 % (11.6-14.6); RBC Distribution Width SD 43.6 fl (35.1-43.9); Red Blood Count 4.41 M/mm3 (4.6-6.2); White Blood Count 7.7 K/mm3 (4.4-11.0)
[2020-12-03 10:44] LABS: ALB/GLOB Ratio 1.1 RATIO (0.9-2.4); AST(SGOT) 18 U/L (15-37); Alanine Aminotransfer ALT/SGPT 27 U/L (16-61); Albumin, Serum 3.8 g/dL (3.2-5.0); Alkaline Phosphatase 76 U/L (45-117); Anion Gap 1 (5-15); BUN 21 mg/dL (7-18); BUN/Creat Ratio 20.2 RATIO (10-20); Calcium,Total 9.1 mg/dL (8.5-10.1); Chloride 106 mmol/L (98-107); Creatinine, Serum 1.04 mg/dL (0.70-1.30); EST Glomerular Filtration Rate 74 mL/min (>60); Est Glom Filt Rate - Afr Amer 90 mL/min (>60); Globulin 3.6 g/dL (2.2-4.2); Glucose 120 mg/dL (74-106); Potassium 3.8 mmol/L (3.5-5.1); Protein, Total 7.4 g/dL (6.4-8.2); Sodium Level 139 mmol/L (136-145)
== END ==
PROVIDERS: PCP Family Medicine; Referring Provider Internal Medicine Rheumatology; Visit Provider Internal Medicine Rheumatology
DX: M06.4 Inflammatory polyarthropathy (principal); M72.2 Plantar fascial fibromatosis; I10 Essential (primary) hypertension; I82.891 Chronic embolism and thrombosis of other specified veins; E78.5 Hyperlipidemia, unspecified; I35.0 Nonrheumatic aortic (valve) stenosis
CPT/HCPCS: 36415; 80053; 85025

== ENCOUNTER → 2021-02-25 14:19 | Outpatient (CLI) | payer MEDICARE, SELFPAY ==
[2021-02-25 18:24] LABS: BUN 22 mg/dL (7-18); Calcium,Total 9.5 mg/dL (8.5-10.1); Chloride 102 mmol/L (98-107); Creatinine, Serum 1.16 mg/dL (0.70-1.30); EST Glomerular Filtration Rate 65 mL/min (>60); Est Glom Filt Rate - Afr Amer 79 mL/min (>60); Glucose 92 mg/dL (74-106); Phosphorus 3.6 mg/dL (2.5-4.9); Sodium Level 137 mmol/L (136-145)
[2021-02-25 18:38] LABS: Protein, Urine (Random) 95.9 mg/dL (<11.9); Protein:Creat Ratio 344 mg/g CRE (0-200)
== END ==
PROVIDERS: PCP Family Medicine; Referring Provider Internal Medicine Nephrology; Visit Provider Internal Medicine Nephrology
DX: N18.2 Chronic kidney disease, stage 2 (mild) (principal); R80.9 Proteinuria, unspecified
CPT/HCPCS: 36415; 80069; 82570; 84156

== ENCOUNTER → 2021-06-03 10:15 | Outpatient (CLI) | payer MEDICARE, SELFPAY ==
[2021-06-03 12:19] LABS: Absolute Lymphocyte Count 1.49 X10^3/uL (0.83-4.51); Absolute Neutrophil Count 5.7 X10^3/uL (2.0-7.7); Basophil# 0.04 X10^3/uL; Basophil% 0.5 % (0-1); Eosinophil# 0.12 X10^3/uL; Eosinophils% 1.5 % (0-5); Hematocrit 41.9 % (40-54); Hemoglobin 13.7 g/dL (13.0-16.5); Lymphocyte # 1.49 X10^3/ul (0.83-4.51); Lymphocyte % 18.4 % (19-41); Mean Corp Hgb Conc 32.7 g/dL (32-36); Mean Corpuscular Hgb 30.6 pg (27.0-32.0); Mean Corpuscular Volume 93.5 fL (80-94); Monocyte# 0.67 X10^3/uL; Monocyte% 8.3 % (0-10); NRBC Flagged by Analyzer 0 % (0-5); Neutrophil # 5.72 X10^3/uL (2.7-7.7); Neutrophil % 70.4 % (47-70); Platelet Count 229 K/mm3 (150-450); RBC Distribution Width CV 12.7 % (11.6-14.6); RBC Distribution Width SD 43.7 fl (35.1-43.9); Red Blood Count 4.48 M/mm3 (4.6-6.2); White Blood Count 8.1 K/mm3 (4.4-11.0)
[2021-06-03 12:44] LABS: ALB/GLOB Ratio 0.9 RATIO (0.9-2.4); AST(SGOT) 20 U/L (15-37); Alanine Aminotransfer ALT/SGPT 30 U/L (16-61); Albumin, Serum 3.7 g/dL (3.2-5.0); Alkaline Phosphatase 74 U/L (45-117); Anion Gap 6 (5-15); BUN 21 mg/dL (7-18); BUN/Creat Ratio 19.6 RATIO (10-20); Calcium,Total 9.3 mg/dL (8.5-10.1); Chloride 103 mmol/L (98-107); Creatinine, Serum 1.07 mg/dL (0.70-1.30); EST Glomerular Filtration Rate 72 mL/min (>60); Est Glom Filt Rate - Afr Amer 87 mL/min (>60); Glucose 105 mg/dL (74-106); Protein, Total 7.7 g/dL (6.4-8.2); Sodium Level 139 mmol/L (136-145)
== END ==
PROVIDERS: PCP Family Medicine; Referring Provider Internal Medicine Rheumatology; Visit Provider Internal Medicine Rheumatology
DX: M06.4 Inflammatory polyarthropathy (principal); M72.2 Plantar fascial fibromatosis; M25.511 Pain in right shoulder; I82.891 Chronic embolism and thrombosis of other specified veins; E78.5 Hyperlipidemia, unspecified; I35.0 Nonrheumatic aortic (valve) stenosis; I10 Essential (primary) hypertension
CPT/HCPCS: 36415; 80053; 85025

== ENCOUNTER → 2021-11-18 | Outpatient (CLI) | payer MEDICARE, SELFPAY ==
[2021-11-18 12:18] LABS: Absolute Lymphocyte Count 1.27 X10^3/uL (0.83-4.51); Absolute Neutrophil Count 5.9 X10^3/uL (2.0-7.7); Basophil# 0.02 X10^3/uL; Basophil% 0.3 % (0-1); Eosinophil# 0.12 X10^3/uL; Eosinophils% 1.5 % (0-5); Hematocrit 42.8 % (40-54); Hemoglobin 14.1 g/dL (13.0-16.5); Lymphocyte # 1.27 X10^3/ul (0.83-4.51); Lymphocyte % 15.9 % (19-41); Mean Corp Hgb Conc 32.9 g/dL (32-36); Mean Corpuscular Hgb 30.6 pg (27.0-32.0); Mean Corpuscular Volume 92.8 fL (80-94); Mean Platelet Vol. 11.4 fl (6.2-12.0); Monocyte# 0.63 X10^3/uL; Monocyte% 7.9 % (0-10); NRBC Flagged by Analyzer 0 % (0-5); Neutrophil # 5.91 X10^3/uL (2.7-7.7); Neutrophil % 73.9 % (47-70); Platelet Count 206 K/mm3 (150-450); RBC Distribution Width CV 12.4 % (11.6-14.6); RBC Distribution Width SD 42.2 fl (35.1-43.9); Red Blood Count 4.61 M/mm3 (4.6-6.2)
[2021-11-18 12:51] LABS: ALB/GLOB Ratio 1.1 RATIO (0.9-2.4); AST(SGOT) 25 U/L (15-37); Alanine Aminotransfer ALT/SGPT 33 U/L (16-61); Alkaline Phosphatase 77 U/L (45-117); Anion Gap 5 (5-15); BUN 17 mg/dL (7-18); BUN/Creat Ratio 16.5 RATIO (10-20); Calcium,Total 9.4 mg/dL (8.5-10.1); Chloride 105 mmol/L (98-107); Creatinine, Serum 1.03 mg/dL (0.70-1.30); EST Glomerular Filtration Rate 75 mL/min (>60); Est Glom Filt Rate - Afr Amer 90 mL/min (>60); Globulin 3.6 g/dL (2.2-4.2); Glucose 105 mg/dL (74-106); PSA,Total - Annual Screen 0.94 ng/mL (0.00-4.00); Potassium 4.3 mmol/L (3.5-5.1); Protein, Total 7.6 g/dL (6.4-8.2); Sodium Level 139 mmol/L (136-145)
== END | disposition home or self-care (01) ==
LOC: MTLAB 09:16
PROVIDERS: PCP Family Medicine; Referring Provider Urology; Visit Provider Urology
DX: M06.4 Inflammatory polyarthropathy (principal); M72.2 Plantar fascial fibromatosis; M25.511 Pain in right shoulder; I82.891 Chronic embolism and thrombosis of other specified veins; E78.5 Hyperlipidemia, unspecified; I35.0 Nonrheumatic aortic (valve) stenosis; I10 Essential (primary) hypertension; Z12.5 Encounter for screening for malignant neoplasm of prostate
CPT/HCPCS: 36415; 80053; 84153; 85025; G0103

== ENCOUNTER → 2022-02-24 | Outpatient (CLI) | payer MEDICARE, SELFPAY ==
[2022-02-24 10:38] LABS: Albumin, Serum 3.8 g/dL (3.2-5.0); BUN 22 mg/dL (7-18); Calcium,Total 9.1 mg/dL (8.5-10.1); Chloride 104 mmol/L (98-107); EST Glomerular Filtration Rate 69 mL/min (>60); Est Glom Filt Rate - Afr Amer 84 mL/min (>60); Glucose 116 mg/dL (74-106); Phosphorus 3.4 mg/dL (2.5-4.9); Sodium Level 140 mmol/L (136-145); Uric Acid 7.7 mg/dL (3.5-7.2)
[2022-02-24 10:40] LABS: Protein, Urine (Random) 24.4 mg/dL (<11.9); Protein:Creat Ratio 286 mg/g CRE (0-200)
== END | disposition home or self-care (01) ==
LOC: MTLAB 08:22
PROVIDERS: PCP Family Medicine; Referring Provider Internal Medicine Nephrology; Visit Provider Internal Medicine Nephrology
DX: N18.2 Chronic kidney disease, stage 2 (mild) (principal); R80.9 Proteinuria, unspecified; E79.0 Hyperuricemia without signs of inflammatory arthritis and tophaceous disease
CPT/HCPCS: 36415; 80069; 82570; 84156; 84550

== ENCOUNTER → 2022-05-21 | Outpatient (CLI) | payer MEDICARE, SELFPAY ==
[2022-05-21 10:06] LABS: Absolute Lymphocyte Count 1.38 X10^3/uL (0.83-4.51); Absolute Neutrophil Count 5.8 X10^3/uL (2.0-7.7); Basophil# 0.03 X10^3/uL; Basophil% 0.4 % (0-1); Eosinophil# 0.12 X10^3/uL; Eosinophils% 1.5 % (0-5); Hematocrit 42.4 % (40-54); Hemoglobin 13.7 g/dL (13.0-16.5); Lymphocyte # 1.38 X10^3/ul (0.83-4.51); Lymphocyte % 17.1 % (19-41); Mean Corp Hgb Conc 32.3 g/dL (32-36); Mean Corpuscular Volume 95.9 fL (80-94); Mean Platelet Vol. 10.8 fl (6.2-12.0); Monocyte% 8.7 % (0-10); NRBC Flagged by Analyzer 0 % (0-5); Neutrophil # 5.76 X10^3/uL (2.7-7.7); Neutrophil % 71.1 % (47-70); Platelet Count 212 K/mm3 (150-450); RBC Distribution Width CV 12.3 % (11.6-14.6); RBC Distribution Width SD 43.8 fl (35.1-43.9); Red Blood Count 4.42 M/mm3 (4.6-6.2); White Blood Count 8.1 K/mm3 (4.4-11.0)
[2022-05-21 10:35] LABS: ALB/GLOB Ratio 1.1 RATIO (0.9-2.4); AST(SGOT) 25 U/L (15-37); Alanine Aminotransfer ALT/SGPT 38 U/L (16-61); Albumin, Serum 4.1 g/dL (3.2-5.0); Alkaline Phosphatase 82 U/L (45-117); Anion Gap 6 (5-15); BUN 25 mg/dL (7-18); BUN/Creat Ratio 24.3 RATIO (10-20); Calcium,Total 9.8 mg/dL (8.5-10.1); Chloride 103 mmol/L (98-107); Creatinine, Serum 1.03 mg/dL (0.70-1.30); EST Glomerular Filtration Rate 75 mL/min (>60); Est Glom Filt Rate - Afr Amer 90 mL/min (>60); Globulin 3.7 g/dL (2.2-4.2); Glucose 117 mg/dL (74-106); Potassium 3.9 mmol/L (3.5-5.1); Protein, Total 7.8 g/dL (6.4-8.2); Sodium Level 141 mmol/L (136-145)
== END | disposition home or self-care (01) ==
LOC: MTLAB 09:26
PROVIDERS: PCP Family Medicine; Referring Provider Internal Medicine Rheumatology; Visit Provider Internal Medicine Rheumatology
DX: M06.4 Inflammatory polyarthropathy (principal); M25.511 Pain in right shoulder; I82.891 Chronic embolism and thrombosis of other specified veins; E78.5 Hyperlipidemia, unspecified; I35.0 Nonrheumatic aortic (valve) stenosis; I10 Essential (primary) hypertension; Q60.0 Renal agenesis, unilateral; Z79.899 Other long term (current) drug therapy
CPT/HCPCS: 36415; 80053; 85025

== ENCOUNTER → 2022-11-10 | Outpatient (CLI) | payer MEDICARE, SELFPAY ==
[2022-11-10 10:37] LABS: Absolute Lymphocyte Count 1.11 X10^3/uL (0.83-4.51); Absolute Neutrophil Count 6.7 X10^3/uL (2.0-7.7); Basophil# 0.03 X10^3/uL; Basophil% 0.3 % (0-1); Eosinophil# 0.13 X10^3/uL; Eosinophils% 1.5 % (0-5); Hemoglobin 13.8 g/dL (13.0-16.5); Lymphocyte # 1.11 X10^3/ul (0.83-4.51); Lymphocyte % 12.6 % (19-41); Mean Corp Hgb Conc 32.1 g/dL (32-36); Mean Corpuscular Hgb 30.8 pg (27.0-32.0); Mean Platelet Vol. 10.8 fl (6.2-12.0); Monocyte% 7.9 % (0-10); NRBC Flagged by Analyzer 0 % (0-5); Neutrophil # 6.71 X10^3/uL (2.7-7.7); Neutrophil % 76.2 % (47-70); Platelet Count 234 K/mm3 (150-450); RBC Distribution Width CV 12.7 % (11.6-14.6); Red Blood Count 4.48 M/mm3 (4.6-6.2); White Blood Count 8.8 K/mm3 (4.4-11.0)
[2022-11-10 10:51] LABS: ALB/GLOB Ratio 1.1 RATIO (0.9-2.4); AST(SGOT) 26 U/L (15-37); Alanine Aminotransfer ALT/SGPT 44 U/L (16-61); Alkaline Phosphatase 89 U/L (45-117); Anion Gap 3 (5-15); BUN 25 mg/dL (7-18); BUN/Creat Ratio 20.8 RATIO (10-20); Calcium,Total 9.6 mg/dL (8.5-10.1); Chloride 102 mmol/L (98-107); EST Glomerular Filtration Rate 62 mL/min (>60); Est Glom Filt Rate - Afr Amer 76 mL/min (>60); Globulin 3.6 g/dL (2.2-4.2); Glucose 132 mg/dL (74-106); Potassium 4.1 mmol/L (3.5-5.1); Protein, Total 7.6 g/dL (6.4-8.2); Sodium Level 137 mmol/L (136-145)
== END | disposition home or self-care (01) ==
LOC: MTLAB 08:04
PROVIDERS: PCP Family Medicine; Referring Provider Internal Medicine Rheumatology; Visit Provider Internal Medicine Rheumatology
DX: M06.4 Inflammatory polyarthropathy (principal); Z79.899 Other long term (current) drug therapy
CPT/HCPCS: 36415; 80053; 85025

== ENCOUNTER → 2022-11-26 | Outpatient (CLI) | payer MEDICARE, SELFPAY ==
[2022-11-26 10:32] LABS: PSA,Total - Annual Screen 0.88 ng/mL (0.00-4.00)
== END | disposition home or self-care (01) ==
LOC: MTLAB 08:15
PROVIDERS: PCP Family Medicine; Referring Provider Urology; Visit Provider Urology
DX: Z12.5 Encounter for screening for malignant neoplasm of prostate (principal)
CPT/HCPCS: 36415; 84153; G0103

== ENCOUNTER → 2023-03-16 | Outpatient (CLI) | payer MEDICARE, SELFPAY ==
[2023-03-16 11:02] LABS: Albumin, Serum 3.6 g/dL (3.2-5.0); BUN 18 mg/dL (7-18); BUN/Creat Ratio 18.8 RATIO (10-20); Calcium,Total 9.2 mg/dL (8.5-10.1); Chloride 105 mmol/L (98-107); Creatinine, Serum 0.96 mg/dL (0.70-1.30); EST Glomerular Filtration Rate 81 mL/min (>60); Est Glom Filt Rate - Afr Amer 98 mL/min (>60); Glucose 119 mg/dL (74-106); Phosphorus 3.1 mg/dL (2.5-4.9); Potassium 3.9 mmol/L (3.5-5.1); Sodium Level 140 mmol/L (136-145); Uric Acid 7.7 mg/dL (3.5-7.2)
[2023-03-16 11:18] LABS: Protein, Urine (Random) 24.1 mg/dL (<11.9); Protein:Creat Ratio 361 mg/g CRE (0-200)
== END | disposition home or self-care (01) ==
LOC: MTLAB 07:52
PROVIDERS: PCP Family Medicine; Referring Provider Internal Medicine Nephrology; Visit Provider Internal Medicine Nephrology
DX: R80.9 Proteinuria, unspecified (principal); E79.0 Hyperuricemia without signs of inflammatory arthritis and tophaceous disease
CPT/HCPCS: 36415; 80069; 82570; 84156; 84550

== ENCOUNTER 2023-05-11 10:19 | Emergency (ER) | payer MEDICARE, SELFPAY ==
[2023-05-11 10:21] VITALS: BP 167/85; PULSE 77; RESP 18; TEMP 35.8; O2SAT 93; BMI 37.9
[2023-05-11 10:35] VITALS: BMI 37.8
--- NOTE | 2023-05-11 10:55 | EX.ED.DYSGE1 ---
HPI History of Present Illness Chief Complaint: Flank Pain Informant: patient Onset/Context/Timing Onset: Days (3) Context: Gradual Onset Timing: Intermittent Quality: Sharp Location: Right groin and right flank Worsened by: Walking, bending Relieved by: [id number] medication Narrative Narrative: Patient presents with right groin pain that has been getting worse over the last 3 days. Patient states it radiates to his right flank area. Patient states it is intermittent. Patient states that last between 30 and 60 minutes. Patient describes his pain as sharp. Patient states he took an [id number] medication which helped with the pain. Patient states it is worse with bending and with ambulation. Patient denies any dysuria or hematuria. Patient denies any nausea or vomiting. Patient denies any fevers or chills. [facility] Medical History (Updated 05/11/23 @ 14:[address] Jann Ramirez DO) Hypertension Home Medications amlodipine 5 mg tablet 5 mg PO DAILY blood pressure 11/24/18 [History Last Taken 12/05/18] aspirin 81 mg tablet,delayed release (Aspir-) 81 mg PO DAILY heart health 11/24/18 [History Last Taken 12/05/18] cyclobenzaprine 10 mg tablet 10 mg PO TID muscle spasms 11/24/18 [History Last Taken 12/05/18] hydrochlorothiazide 25 mg tablet 25 mg PO DAILY blood pressure 11/24/18 [History Last Taken 12/05/18] losartan 100 mg tablet 100 mg PO DAILY blood pressure 11/24/18 [History Last Taken 12/05/18] vardenafil 20 mg tablet (Levitra) 20 mg PO DAILY PRN PRN ERECTILE 11/24/18 [History Last Taken 11/21/18] cephalexin 500 mg capsule 500 mg PO Q8 ##15 12/07/18 [Rx Last Taken Unknown] hydrocodone-acetaminophen 5-325mg 5mg-325mg 1 tab PO Q6H PRN PRN Pain 3 days #10 TABLETS 05/11/23 [Rx Last Taken Unknown] Allergy/AdvReac Type Severity Reaction Status Date / Time simvastatin AdvReac Upset Verified 05/11/23 10:20 Stomach Surgical History (Updated 05/11/23 @ 11:[address] Jann Ramirez, ) History of herniorrhaphy Hx of appendectomy Social History Smoking Status: Never smoker ROS ROS ED Constitutional Constitutional ED: Denies chills or fever(s) Eyes Eyes: Denies blurry vision or change in vision ENT ENT ED: Denies rhinorrhea or sore throat Cardiovascular Cardiovascular: Denies chest pain or palpitations Respiratory/Chest Respiratory/Chest: Denies cough or dyspnea Gastrointestinal Gastrointestinal: Reports abdominal pain; Denies nausea or vomiting Genitourinary Genitourinary ED: Denies dysuria or hematuria Musculoskeletal Musculoskeletal: Reports back pain; Denies neck pain Integumentary Denies abscess or rash Neurologic Neurologic: Denies headache(s) or weakness Allergic/Immunologic Allergic/Immunologic ED: Denies mouth swelling or urticaria EXAM Physical Exam Const Vital Signs: 05/11/23 10:21 Temperature 96.5 F L Temperature Source Temporal Pulse Rate 77 Respiratory Rate 18 Blood Pressure 167/85 H Blood Pressure Mean 112 Pulse Ox 93 Oxygen Delivery Method Room Air Positive well nourished and well developed General Appearance ED: well developed and NAD HEENT Reports moist mucous membranes Neck supple and no JVD Resp normal respiratory effort and clear to auscultation bilaterally Cardio regular rate and regular rhythm GI non-distended Palpation: soft and tender RLQ (Right inguinal area) Back/Spine no CVA tenderness Extremity normal to inspection Neuro oriented x3, CN's II-XII intact bilaterally and no sensory deficits noted Sensorium / Orientation: alert Motor Exam: strength 5/5 throughout Psych mental status grossly normal Skin no rashes or lesions noted and no wounds MDM MDM MDM Narrative Medical decision making narrative: Differential diagnosis includes inguinal hernia, ureteral calculus, bowel obstruction, perforation, urinary tract infection, and gastroenteritis. CBC will be obtained to assess for leukocytosis and anemia. Comprehensive metabolic profile will be obtained to assess for hepatic function, renal function, and electrolyte abnormality. Urinalysis will be obtained to assess for urinary tract infection and hematuria. CT scan of the abdomen pelvis will be obtained to assess for ureteral calculus, bowel obstruction, and inguinal hernia. Lab Data Attestation: I reviewed the patient's lab results. Lab results narrative: CBC was reviewed and was within normal limits. Comprehensive metabolic profile was reviewed and was within normal limits. Urinalysis was reviewed. There is no evidence of urinary tract infection or hematuria. Labs: Laboratory Results - last 24 hr 05/11/23 05/11/23 11:03 12:08 WBC 7.9 RBC 4.14 L Hgb 13.0 Hct 39.3 L MCV 94.9 H MCH 31.4 MCHC 33.1 RDW Std Deviation 43.7 RDW Coeff of Nilsa 12.7 Plt Count 189 MPV 11.0 Immature Gran % (Auto) 0.900 Neut % (Auto) 74.6 H Lymph % (Auto) 13.5 L [place] % (Auto) 9.2 Eos % (Auto) 1.4 Baso % (Auto) 0.4 Absolute Neuts (auto) 5.9 Absolute Lymphs (auto) 1.07 Nucleated RBC % 0 Sodium 139 Potassium 4.2 Chloride 103 Carbon Dioxide 33.0 H Anion Gap 3 L BUN 23 H Creatinine 1.08 Estim Creat Clear Calc 53.55 Est GFR (MDRD) Af Amer 85 Est GFR (MDRD) Non-Af 70 BUN/Creatinine Ratio 21.3 H Glucose 111 H Calcium 9.0 Total Bilirubin 0.50 AST 20 ALT 34 Alkaline Phosphatase 89 Total Protein 7.2 Albumin 3.9 Globulin 3.3 Albumin/Globulin Ratio 1.2 Urine Color Yellow Urine Clarity Clear Urine pH 6.0 Ur Specific [place] 1.010 Urine Protein 30 H Urine Glucose (UA) Normal Urine Ketones Negative Urine Occult Blood Negative Urine Nitrite Negative Urine Bilirubin Negative Urine Urobilinogen Normal Ur Leukocyte Esterase Negative Urine RBC 0 SEEN Urine WBC 0 SEEN Ur Squamous Epith Cells 0 SEEN Urine Bacteria 0 SEEN Urine Mucus 0 SEEN Radiography Diagnostic Testing: Clinical Impression(s) from Imaging Studies Abdomen/Pelvis CT 05/11/23 11:07 IMPRESSION: 1. Mild left perinephric stranding without evidence of hydronephrosis which can be seen in pyelonephritis or recently passed stone. 2. Absent right kidney. 3. Diverticulosis without evidence of acute diverticulitis. Electronically Signed: Channing Noble MD at 11:58 EDT , CT scan of the abdomen and pelvis was obtained. There is mild left perinephric stranding but no hydronephrosis. There is diverticulosis but no evidence of diverticulitis. There are bilateral inguinal hernias that contain fat only. There is no evidence of bowel obstruction. This was interpreted by the radiologist and was also independently reviewed by myself. Treatment and Re-Evaluation :: Patient was given IV fluids, morphine, and Zofran. Patient is feeling better on reevaluation. Patient was advised of his findings. Patient was given a prescription for a short course of [place]. Patient was instructed to drink plenty of fluids. Patient was instructed to follow-up with his primary care physician in 5 to 7 days. Patient understood and was agreeable with the plan. All questions were answered. Discharge Plan Triage Chief Complaint: Flank Pain Other Complaint: Abd Pain ED Provider: Jann Ramirez Dx/Rx/DC Orders Clinical Impression: Right inguinal pain Instructions: ED Abdominal Pain Unkn Cause Male... Prescriptions: New hydrocodone-acetaminophen [hydrocodone-acetaminophen] 5-325 mg tablet 1 tab PO Q6H PRN PRN (Reason: Pain) 3 Days Qty: 10 0RF No Action cyclobenzaprine 10 MG tablet 10 mg PO TID amlodipine 5 MG tablet 5 mg PO DAILY hydrochlorothiazide 25 MG tablet 25 mg PO DAILY losartan 100 MG tablet 100 mg PO DAILY vardenafil [Levitra] 20 MG tablet 20 mg PO DAILY PRN PRN (Reason: ERECTILE) aspirin [Aspir-81] 81 MG tablet,delayed release (DR/EC) 81 mg PO DAILY cephalexin 500 MG capsule 500 mg PO Q8 Qty: 15 0RF Primary Care Provider: Miguelangel Livingston Referrals: Miguelangel Livingston MD [Primary Care Provider] - Keep [facility]et appointment Disposition Disposition: Home, Self Care
--- NOTE | 2023-05-11 11:07 | CT_ITS ---
INDICATION: Right flank pain EXAMINATION: CT ABDOMEN AND PELVIS WITHOUT CONTRAST - CT Abdomen And Pelvis W/O Contrast Injection TECHNIQUE: Helically acquired images were obtained of the abdomen and pelvis without oral or IV contrast. A radiation dose optimization technique was used for this scan. IV Contrast dosage and agent: None. Oral contrast: None. RADIATION DOSAGE (If Supplied By Facility): CTDIvol = ( 20.66 ) mGy, DLP = ( 1221.85 ) mGycm COMPARISON: No relevant prior comparison study available FINDINGS: LOWER CHEST: Lung bases are clear. No cardiomegaly or pericardial effusion. LIVER: Homogeneous. Scattered small calcifications consistent with calcified granulomata. GALLBLADDER AND BILIARY TREE: No calcified gallstones. No gallbladder distension or wall edema. No intra- or extrahepatic biliary ductal dilation. PANCREAS: No focal cystic or solid mass. SPLEEN: Calcified granulomata. ADRENAL GLANDS: No nodules. KIDNEYS AND URETERS: Absent right kidney. Mild left perinephric stranding. No evidence of hydronephrosis. Small calcifications in the left lower pelvis likely due to phleboliths. No definite ureteral stone. PERITONEUM: No ascites or free air. No other fluid collection. BOWEL: No evidence of acute appendicitis. No stomach or bowel distension. Sigmoid diverticulosis without evidence of acute diverticulitis. LYMPH NODES: No enlarged mesenteric or retroperitoneal lymph nodes. VESSELS: Atherosclerotic calcifications and tortuosity of the abdominal aorta without evidence of aneurysm. URINARY BLADDER: Distended urinary bladder. REPRODUCTIVE ORGANS: No pelvic masses. ABDOMINAL WALL: Bilateral inguinal hernias containing fat larger on the left side. BONES: No lytic or blastic abnormality. Degenerative changes of the spine. CT/Abdomen/Pelvis without Cont IMPRESSION: 1. Mild left perinephric stranding without evidence of hydronephrosis which can be seen in pyelonephritis or recently passed stone. 2. Absent right kidney. 3. Diverticulosis without evidence of acute diverticulitis. Electronically Signed: Channing Noble MD at 11:58 EDT ,
[2023-05-11] MEDS: 0.9% Normal Saline (1000mL) 1,000 ML 1000 ML IV (11:18)
[2023-05-11] MEDS: Ondansetron 4 MG/2 ML Vial IV (11:18)
[2023-05-11] MEDS: Morphine 4 MG/ML Syringe IV (11:19)
[2023-05-11 11:34] LABS: Absolute Lymphocyte Count 1.07 X10^3/uL (0.83-4.51); Absolute Neutrophil Count 5.9 X10^3/uL (2.0-7.7); Basophil# 0.03 X10^3/uL; Basophil% 0.4 % (0-1); Eosinophil# 0.11 X10^3/uL; Eosinophils% 1.4 % (0-5); Hematocrit 39.3 % (40-54); Lymphocyte # 1.07 X10^3/ul (0.83-4.51); Lymphocyte % 13.5 % (19-41); Mean Corp Hgb Conc 33.1 g/dL (32-36); Mean Corpuscular Hgb 31.4 pg (27.0-32.0); Mean Corpuscular Volume 94.9 fL (80-94); Monocyte# 0.73 X10^3/uL; Monocyte% 9.2 % (0-10); NRBC Flagged by Analyzer 0 % (0-5); Neutrophil # 5.93 X10^3/uL (2.7-7.7); Neutrophil % 74.6 % (47-70); Platelet Count 189 K/mm3 (150-450); RBC Distribution Width CV 12.7 % (11.6-14.6); RBC Distribution Width SD 43.7 fl (35.1-43.9); Red Blood Count 4.14 M/mm3 (4.6-6.2); White Blood Count 7.9 K/mm3 (4.4-11.0)
[2023-05-11 11:42] LABS: ALB/GLOB Ratio 1.2 RATIO (0.9-2.4); AST(SGOT) 20 U/L (15-37); Alanine Aminotransfer ALT/SGPT 34 U/L (16-61); Albumin, Serum 3.9 g/dL (3.2-5.0); Alkaline Phosphatase 89 U/L (45-117); Anion Gap 3 (5-15); BUN 23 mg/dL (7-18); BUN/Creat Ratio 21.3 RATIO (10-20); Chloride 103 mmol/L (98-107); Creatinine, Serum 1.08 mg/dL (0.70-1.30); EST Glomerular Filtration Rate 70 mL/min (>60); Est Glom Filt Rate - Afr Amer 85 mL/min (>60); Estimated Creatinine Clearance 53.55 ml/min; Globulin 3.3 g/dL (2.2-4.2); Glucose 111 mg/dL (74-106); Potassium 4.2 mmol/L (3.5-5.1); Protein, Total 7.2 g/dL (6.4-8.2); Sodium Level 139 mmol/L (136-145)
--- NOTE | 2023-05-11 12:07 | CM.ED ---
Social Work SW introduced self and role to patient and spouse. SW reviewed advance directives. Pt reports he believes he completed documents with dcs engineer but he is uncertain. SW answered questions as able for pt/spouse. SW provided AD handout for patient to review if needed. Pt reports he will verify what documents he has with his dcs engineer. No other SW needs reported at this time. Izabel Collins ACTUARIAL SCIENCE PROFESSOR, GREENHOUSE ASSISTANT
[2023-05-11 12:15] LABS: Bacteria 0 SEEN /hpf (None Seen); Mucous, Urine 0 SEEN /hpf (<or=2+); Red Blood Cells-Urine 0 SEEN /hpf (0-5); Squamous Epithelial Cells - UA 0 SEEN /hpf (0-5); White Blood Cells 0 SEEN /hpf (0-5)
[2023-05-11 12:19] LABS: Color, Urine Yellow (Yellow); Glucose, Dipstick Normal (Normal); Ketone-Dipstick Negative (Negative); Leukocyte Esterase-Dipstick Negative /ul (Negative); Nitrite-Dipstick Negative (Negative); Occult Blood-Urine Negative /ul (Negative); Protein-Dipstick 30 mg/dl (Negative); Urine Bilirubin Dipstick Negative (Negative); Urine Clarity Clear (Clear); Urine Urobilinogen Normal (Normal)
[2023-05-11 15:05] VITALS: BP 154/83; PULSE 68; RESP 16; O2SAT 96
== END 2023-05-11 15:06 | disposition home or self-care (01) ==
PROVIDERS: Emergency Provider Emergency Medicine; PCP Family Medicine; Visit Provider Emergency Medicine
DX: R10.2 Pelvic and perineal pain (principal)
CPT/HCPCS: 74176; 80053; 81001; 85025; 96361; 96374; 96375; 99284; J7030; A4216; J2405

== ENCOUNTER → 2023-05-17 | Outpatient (CLI) | payer MEDICARE, SELFPAY ==
[2023-05-17 10:15] LABS: Absolute Lymphocyte Count 1.18 X10^3/uL (0.83-4.51); Absolute Neutrophil Count 5.3 X10^3/uL (2.0-7.7); Basophil# 0.03 X10^3/uL; Basophil% 0.4 % (0-1); Eosinophil# 0.14 X10^3/uL; Eosinophils% 1.9 % (0-5); Lymphocyte # 1.18 X10^3/ul (0.83-4.51); Lymphocyte % 15.9 % (19-41); Mean Corp Hgb Conc 31.7 g/dL (32-36); Mean Corpuscular Hgb 31.1 pg (27.0-32.0); Mean Corpuscular Volume 98.1 fL (80-94); Monocyte# 0.71 X10^3/uL; Monocyte% 9.6 % (0-10); NRBC Flagged by Analyzer 0 % (0-5); Neutrophil # 5.25 X10^3/uL (2.7-7.7); Platelet Count 211 K/mm3 (150-450); RBC Distribution Width CV 12.9 % (11.6-14.6); RBC Distribution Width SD 46.1 fl (35.1-43.9); Red Blood Count 4.18 M/mm3 (4.6-6.2); White Blood Count 7.4 K/mm3 (4.4-11.0)
[2023-05-17 11:02] LABS: ALB/GLOB Ratio 0.9 RATIO (0.9-2.4); AST(SGOT) 18 U/L (15-37); Alanine Aminotransfer ALT/SGPT 31 U/L (16-61); Albumin, Serum 3.6 g/dL (3.2-5.0); Alkaline Phosphatase 103 U/L (45-117); Anion Gap 7 (5-15); BUN 23 mg/dL (7-18); BUN/Creat Ratio 20.9 RATIO (10-20); Calcium,Total 9.3 mg/dL (8.5-10.1); Chloride 103 mmol/L (98-107); EST Glomerular Filtration Rate 69 mL/min (>60); Est Glom Filt Rate - Afr Amer 83 mL/min (>60); Globulin 3.8 g/dL (2.2-4.2); Glucose 133 mg/dL (74-106); Potassium 4.2 mmol/L (3.5-5.1); Protein, Total 7.4 g/dL (6.4-8.2); Sodium Level 139 mmol/L (136-145)
== END | disposition home or self-care (01) ==
PROVIDERS: PCP Family Medicine; Referring Provider Internal Medicine Rheumatology; Visit Provider Internal Medicine Rheumatology
DX: M06.4 Inflammatory polyarthropathy (principal); M75.41 Impingement syndrome of right shoulder; M47.897 Other spondylosis, lumbosacral region; I82.891 Chronic embolism and thrombosis of other specified veins; E78.5 Hyperlipidemia, unspecified; I35.0 Nonrheumatic aortic (valve) stenosis; I10 Essential (primary) hypertension; Q60.0 Renal agenesis, unilateral; Z79.899 Other long term (current) drug therapy
CPT/HCPCS: 36415; 80053; 85025

== ENCOUNTER → 2023-11-11 | Outpatient (CLI) | payer MEDICARE, SELFPAY ==
[2023-11-11 10:44] LABS: Absolute Lymphocyte Count 1.37 X10^3/uL (0.83-4.51); Absolute Neutrophil Count 5.5 X10^3/uL (2.0-7.7); Basophil# 0.02 X10^3/uL; Basophil% 0.3 % (0-1); Eosinophil# 0.12 X10^3/uL; Eosinophils% 1.5 % (0-5); Hematocrit 40.2 % (40-54); Hemoglobin 12.8 g/dL (13.0-16.5); Lymphocyte # 1.37 X10^3/ul (0.83-4.51); Lymphocyte % 17.7 % (19-41); Mean Corp Hgb Conc 31.8 g/dL (32-36); Mean Corpuscular Hgb 30.5 pg (27.0-32.0); Mean Corpuscular Volume 95.9 fL (80-94); Mean Platelet Vol. 11.2 fl (6.2-12.0); Monocyte# 0.71 X10^3/uL; Monocyte% 9.2 % (0-10); NRBC Flagged by Analyzer 0 % (0-5); Neutrophil # 5.46 X10^3/uL (2.7-7.7); Neutrophil % 70.4 % (47-70); Platelet Count 200 K/mm3 (150-450); RBC Distribution Width CV 12.7 % (11.6-14.6); RBC Distribution Width SD 45.1 fl (35.1-43.9); Red Blood Count 4.19 M/mm3 (4.6-6.2); White Blood Count 7.8 K/mm3 (4.4-11.0)
[2023-11-11 11:00] LABS: ALB/GLOB Ratio 1.1 RATIO (0.9-2.4); AST(SGOT) 28 U/L (15-37); Alanine Aminotransfer ALT/SGPT 32 U/L (16-61); Albumin, Serum 3.8 g/dL (3.2-5.0); Alkaline Phosphatase 88 U/L (45-117); Anion Gap 3 (5-15); BUN 20 mg/dL (7-18); BUN/Creat Ratio 16.5 RATIO (10-20); Calcium,Total 9.4 mg/dL (8.5-10.1); Chloride 104 mmol/L (98-107); Creatinine, Serum 1.21 mg/dL (0.70-1.30); EST Glomerular Filtration Rate 62 mL/min (>60); Est Glom Filt Rate - Afr Amer 75 mL/min (>60); Globulin 3.4 g/dL (2.2-4.2); Glucose 127 mg/dL (74-106); Potassium 4.1 mmol/L (3.5-5.1); Protein, Total 7.2 g/dL (6.4-8.2); Sodium Level 139 mmol/L (136-145)
== END | disposition home or self-care (01) ==
LOC: MTLAB 08:22
PROVIDERS: PCP Family Medicine; Referring Provider Internal Medicine Rheumatology; Visit Provider Internal Medicine Rheumatology
DX: M06.4 Inflammatory polyarthropathy (principal); Z79.899 Other long term (current) drug therapy
CPT/HCPCS: 36415; 80053; 85025

== ENCOUNTER → 2023-12-09 | Outpatient (CLI) | payer MEDICARE, SELFPAY ==
[2023-12-09 16:29] LABS: PSA,Total - Annual Screen 0.76 ng/mL (0.00-4.00)
== END | disposition home or self-care (01) ==
LOC: LAB 14:15
PROVIDERS: PCP Family Medicine; Referring Provider Nurse Practitioner; Visit Provider Nurse Practitioner
DX: Z12.5 Encounter for screening for malignant neoplasm of prostate (principal)
CPT/HCPCS: 36415; 84153; G0103

== ENCOUNTER → 2024-03-15 | Outpatient (CLI) | payer MEDICARE, SELFPAY ==
[2024-03-15 10:46] LABS: Protein, Urine (Random) 24.9 mg/dL (<11.9); Protein:Creat Ratio 330 mg/g CRE (0-200)
[2024-03-15 10:59] LABS: Albumin, Serum 3.8 g/dL (3.2-5.0); BUN 18 mg/dL (7-18); BUN/Creat Ratio 16.7 RATIO (10-20); Calcium,Total 9.5 mg/dL (8.5-10.1); Chloride 102 mmol/L (98-107); Creatinine, Serum 1.08 mg/dL (0.70-1.30); EST Glomerular Filtration Rate 70 mL/min (>60); Est Glom Filt Rate - Afr Amer 85 mL/min (>60); Glucose 114 mg/dL (74-106); Phosphorus 3.6 mg/dL (2.5-4.9); Potassium 4.3 mmol/L (3.5-5.1); Sodium Level 137 mmol/L (136-145)
== END | disposition home or self-care (01) ==
LOC: MTLAB 08:27
PROVIDERS: PCP Family Medicine; Referring Provider Internal Medicine Nephrology; Visit Provider Internal Medicine Nephrology
DX: R80.9 Proteinuria, unspecified (principal); E79.0 Hyperuricemia without signs of inflammatory arthritis and tophaceous disease; N18.2 Chronic kidney disease, stage 2 (mild)
CPT/HCPCS: 36415; 80069; 82570; 84156; 84550

== ENCOUNTER → 2024-05-04 | Outpatient (CLI) | payer MEDICARE, SELFPAY ==
[2024-05-04 11:58] LABS: Absolute Lymphocyte Count 1.27 X10^3/uL (0.83-4.51); Absolute Neutrophil Count 6.9 X10^3/uL (2.0-7.7); Basophil# 0.04 X10^3/uL; Basophil% 0.4 % (0-1); Eosinophil# 0.15 X10^3/uL; Eosinophils% 1.6 % (0-5); Hematocrit 40.3 % (40-54); Hemoglobin 13.1 g/dL (13.0-16.5); Lymphocyte # 1.27 X10^3/ul (0.83-4.51); Lymphocyte % 13.8 % (19-41); Mean Corp Hgb Conc 32.5 g/dL (32-36); Mean Corpuscular Hgb 31.2 pg (27.0-32.0); Mean Platelet Vol. 10.9 fl (6.2-12.0); Monocyte# 0.73 X10^3/uL; NRBC Flagged by Analyzer 0 % (0-5); Neutrophil # 6.88 X10^3/uL (2.7-7.7); Platelet Count 232 K/mm3 (150-450); RBC Distribution Width CV 12.9 % (11.6-14.6); RBC Distribution Width SD 45.2 fl (35.1-43.9); White Blood Count 9.2 K/mm3 (4.4-11.0)
[2024-05-04 12:34] LABS: AST(SGOT) 21 U/L (15-37); Alanine Aminotransfer ALT/SGPT 31 U/L (16-61); Albumin, Serum 3.8 g/dL (3.2-5.0); Alkaline Phosphatase 99 U/L (45-117); Anion Gap 8 (5-15); BUN 22 mg/dL (7-18); BUN/Creat Ratio 20.6 RATIO (10-20); Calcium,Total 9.5 mg/dL (8.5-10.1); Chloride 103 mmol/L (98-107); Creatinine, Serum 1.07 mg/dL (0.70-1.30); EST Glomerular Filtration Rate 71 mL/min (>60); Est Glom Filt Rate - Afr Amer 86 mL/min (>60); Globulin 3.8 g/dL (2.2-4.2); Glucose 111 mg/dL (74-106); Potassium 4.2 mmol/L (3.5-5.1); Protein, Total 7.6 g/dL (6.4-8.2); Sodium Level 140 mmol/L (136-145)
== END | disposition home or self-care (01) ==
PROVIDERS: PCP Family Medicine; Referring Provider Internal Medicine Rheumatology; Visit Provider Internal Medicine Rheumatology
DX: M06.4 Inflammatory polyarthropathy (principal); Z79.899 Other long term (current) drug therapy
CPT/HCPCS: 36415; 80053; 85025

== ENCOUNTER → 2024-10-23 | Outpatient (CLI) | payer MEDICARE, SELFPAY ==
[2024-10-23 11:28] LABS: Absolute Lymphocyte Count 1.28 X10^3/uL (0.83-4.51); Absolute Neutrophil Count 7.2 X10^3/uL (2.0-7.7); Basophil# 0.05 X10^3/uL; Basophil% 0.5 % (0-1); Eosinophil# 0.09 X10^3/uL; Eosinophils% 0.9 % (0-5); Hematocrit 37.9 % (40-54); Hemoglobin 12.7 g/dL (13.0-16.5); Lymphocyte # 1.28 X10^3/ul (0.83-4.51); Lymphocyte % 13.5 % (19-41); Mean Corp Hgb Conc 33.5 g/dL (32-36); Mean Corpuscular Hgb 31.8 pg (27.0-32.0); Mean Corpuscular Volume 94.8 fL (80-94); Mean Platelet Vol. 11.4 fl (6.2-12.0); Monocyte# 0.77 X10^3/uL; Monocyte% 8.1 % (0-10); NRBC Flagged by Analyzer 0 % (0-5); Neutrophil # 7.22 X10^3/uL (2.7-7.7); Neutrophil % 75.9 % (47-70); Platelet Count 211 K/mm3 (150-450); RBC Distribution Width CV 12.5 % (11.6-14.6); RBC Distribution Width SD 43.7 fl (35.1-43.9); White Blood Count 9.5 K/mm3 (4.4-11.0)
[2024-10-23 13:09] LABS: ALB/GLOB Ratio 1.6 RATIO (0.9-2.4); AST(SGOT) 26 U/L (<=37); Alanine Aminotransfer ALT/SGPT 24 U/L (<=46); Albumin, Serum 4.4 g/dL (3.4-4.8); Alkaline Phosphatase 86 U/L (40-129); Anion Gap 11 (5-15); BUN 24 mg/dL (4-19); BUN/Creat Ratio 21.4 RATIO (10-20); Calcium,Total 9.8 mg/dL (7.6-11.0); Carbon Dioxide 28.2 mmol/L (21.0-32.0); Chloride 100 mmol/L (98-108); Creatinine, Serum 1.12 mg/dL (0.70-1.20); EST Glomerular Filtration Rate 67 (>60); Globulin 2.7 g/dL (2.2-4.2); Glucose 113 mg/dL (70-99); Potassium 4.3 mmol/L (3.3-5.1); Protein, Total 7.2 g/dL (5.9-8.4); Sodium Level 139 mmol/L (133-145); Total Bilirubin 0.44 mg/dL (0.00-1.30)
== END | disposition home or self-care (01) ==
LOC: MTLAB 09:22
PROVIDERS: PCP Family Medicine; Referring Provider Internal Medicine Rheumatology; Visit Provider Internal Medicine Rheumatology
DX: M06.4 Inflammatory polyarthropathy (principal); Z79.899 Other long term (current) drug therapy
CPT/HCPCS: 36415; 80053; 85025

== ENCOUNTER → 2025-02-07 | Outpatient (CLI) | payer MEDICARE, SELFPAY ==
[2025-02-07 11:34] LABS: Albumin, Serum 4.5 g/dL (3.4-4.8); Anion Gap 13 (5-15); BUN 21 mg/dL (4-19); BUN/Creat Ratio 19.1 RATIO (10-20); Calcium,Total 9.7 mg/dL (7.6-11.0); Carbon Dioxide 25.6 mmol/L (21.0-32.0); Chloride 102 mmol/L (98-108); Glucose 116 mg/dL (70-99); Potassium 4.5 mmol/L (3.3-5.1); Uric Acid 9.1 mg/dL (3.5-7.2)
[2025-02-07 13:42] LABS: Creatinine, Urine (random) 77.10 mg/dL (39.00-259.00); Protein, Urine (Random) 10.3 mg/dL (0.0-12.0); Protein:Creat Ratio 134 mg/g CRE (0-200)
== END | disposition home or self-care (01) ==
LOC: MTLAB 08:41
PROVIDERS: PCP Family Medicine; Referring Provider Internal Medicine Nephrology; Visit Provider Internal Medicine Nephrology
DX: N18.2 Chronic kidney disease, stage 2 (mild) (principal); E79.0 Hyperuricemia without signs of inflammatory arthritis and tophaceous disease; R80.9 Proteinuria, unspecified
CPT/HCPCS: 36415; 80069; 82570; 84156; 84550

== ENCOUNTER → 2025-04-16 | Outpatient (CLI) | payer MEDICARE, SELFPAY ==
[2025-04-16 12:25] LABS: Hematocrit 34.4 % (40-54); Hemoglobin 11.6 g/dL (13.0-16.5); Immature Granulocytes Count 0.120 X10^3/uL (0.0-0.0); Mean Corp Hgb Conc 33.7 g/dL (32-36); Mean Corpuscular Volume 93.5 fL (80-94); Mean Platelet Vol. 11.0 fl (6.2-12.0); NRBC Flagged by Analyzer 0 % (0-5); Platelet Count 197 K/mm3 (150-450); RBC Distribution Width CV 12.8 % (11.6-14.6); RBC Distribution Width SD 43.7 fl (35.1-43.9); Red Blood Count 3.68 M/mm3 (4.6-6.2); White Blood Count 9.2 K/mm3 (4.4-11.0)
[2025-04-16 12:51] LABS: AST(SGOT) 28 U/L (<=37); Alanine Aminotransfer ALT/SGPT 20 U/L (<=46); Albumin, Serum 4.3 g/dL (3.4-4.8); Alkaline Phosphatase 93 U/L (40-129); Anion Gap 12 (5-15); BUN 18 mg/dL (4-19); BUN/Creat Ratio 18.4 RATIO (10-20); Calcium,Total 9.5 mg/dL (7.6-11.0); Carbon Dioxide 26.2 mmol/L (21.0-32.0); Chloride 103 mmol/L (98-108); Globulin 2.6 g/dL (2.2-4.2); Glucose 113 mg/dL (70-99); Potassium 4.5 mmol/L (3.3-5.1)
== END | disposition home or self-care (01) ==
LOC: MTLAB 09:59
PROVIDERS: PCP Family Medicine; Referring Provider Internal Medicine Rheumatology; Visit Provider Internal Medicine Rheumatology
DX: M06.4 Inflammatory polyarthropathy (principal); Z79.899 Other long term (current) drug therapy
CPT/HCPCS: 36415; 80053; 85025

== ENCOUNTER → 2025-07-10 | Outpatient (CLI) | payer MEDICARE, SELFPAY ==
--- NOTE | 2025-07-10 | LES_PTH ---
PATIENT: DRAKE GABRIEL [facility]: [facility] U#:[id number] AGE/SX: 79/M ROOM: RE07/10/[address]: Dr. Weston Springer MD : 1945 BED: DIS: 07/10/2025 SPEC #: [id number] RECD: 07/10/25 17:59 STATUS: MIKE REToy #: [id number] JASON: 07/10/25 00:[address]: Weston Springer DEPT: SURGICAL PATHOLOGY RECD BY: Joseph Jc ENTERED: 07/11/25 08:16 SP TYPE: Lesion OTHR DR: Dr. Miguealngel Livingston MD Tissues: A - Skin of eyelid, NOS B - Skin of eyelid, NOS Procedures: Surgery Specimen Level IV HEADER OPERATION: Excision lesion, right eyelid, excision lesion, left eyelid PRE-OP DIAGNOSIS: Lesion right eyelid, lesion left eyelid TISSUE SUBMITTED: A. Lid lesion, right medial, B. Lid lesion, left lower eyelid margin MICROSCOPIC DIAGNOSIS A. Skin, right medial eyelid, lesion, shave biopsy: - Benign verrucous keratosis. B. skin, left lower eyelid margin, lesion, shave biopsy: - Benign verrucous keratosis. MICROSCOPIC DESCRIPTION Slides are reviewed. GROSS DESCRIPTION A. Received in fixative is one container labeled with the patient's name and designated lid lesion, right medial. The specimen consists of one lesion of white/jewell tissue that measure 0.3 x 0.1 x 0.1 cm. The specimen is totally submitted in one cassette. B. Received in fixative is one container labeled with the patient's name and designated lid lesion, left lower eyelid margin. The specimen consists of two lesions of whit/jewell tissue the larger appears papalomatous and measures 0.5 x 0.2 x 0.1 cm and the smaller lesion measures 0.2 x 0.1 x 0.1 cm. The specimen is totally submitted in two cassettes. LINNEA 07/11/2025 CPT: [id number]
--- OUTSIDE RECORDS SUMMARY | 2025-07-10 20:35 | XMS RPT_ITS | CCD ---
Author Organization [facility] Care Team Providers Care Neck Cutter Name Role Phone ZURDO GAVIN Unavailable Unavailable Miguelangel Courtney Unavailable ZURDO GAVIN Unavailable Unavailable ZURDO GAVIN Unavailable Unavailable Miguelangel Courtney MD Primary Care Provider Miguelangel Courtney MD Primary Care Provider Miguelangel Courtney MD Primary Care Provider Miguelangel Courtney MD Primary Care Provider Miguelangel Courtney MD Primary Care Provider Haagen ON AIR PERSONALITY.TRAIN ANNOUNCERAlbertoy Unavailable Suppan ON AIR PERSONALITY.TRAIN ANNOUNCER, Willow A Unavailable [phone] Lowell CHAVEZ, Kirsten Padilla Unavailable Unavailabl e Dr. Miguelangel Courtney MD Primary Care Provider Dr. Beulah Pittman MD Attending Provider Dr. Beulah Pittman MD Referring Provider Lowell CHAVEZ, Kirsten Padilla Unavailable Unavailabl e MIGUELANGEL COURTNEY Primary Care Unavailable JOSE MARIA GUAMAN Attending Unavailable SLEIK, KHALED MELOUD Admitting Unavailable SLEIK, KHALED MELOUD Attending Unavailable AFIA, KHALED MELOUD Referring Unavailable MIGUELANGEL COURTNEY Primary Care Unavailable SLEIK, KHALED MELOUD Admitting Unavailable SLENILA, KHALED MELOUD Attending Unavailable MIGUELANGEL COURTNEY Primary Care Unavailable Dr. Raissa Cerrato DO Attending Provider Dr. Raissa Cerrato DO Referring Provider [phone] PROVIDER, UNKNOWN Referring Unavailable MIGUELANGEL COURTNEY Primary Care Unavailable MIGUELANGEL COURTNEY Primary Care Unavailable STEPHON NEGRON Referring Unavailable SHERWIN, MIGUELANGEL Fraser Primary Care Unavailable NEGRONSTEPHON STONE Attending Unavailable SHERWIN, MIGUELANGEL Fraser Primary Care Unavailable SHERWIN, MIGUELANGEL Fraser Referring Unavailable SHERWIN, MIGUELANGEL J Primary Care Unavailable SHERWIN, MIGUELANGEL J Referring Unavailable SHERWIN, MIGUELANGEL Fraser Attending Unavailable SHERWIN, MIGUELANGEL Fraser Primary Care Unavailable SLEIK, CHEMA QUINTEROSD Referring Unavailable SLEIKCHEMAD Attending Unavailable SHERWIN, MIGUELANGEL Fraser Primary Care Unavailable UZMA HANLEY Attending Unavailable SHERWIN, MIGUELANGEL Fraser Primary Care Unavailable SHERWIN, MIGUELANGEL Fraser Referring Unavailable SHERWIN, MIGUELANGEL Fraser Primary Care Unavailable SHERWIN, MIGUELANGEL Fraser Attending Unavailable SHERWIN, MIGUELANGEL Fraser Primary Care Unavailable RAISSA ELKINS Attending Unavailable SHERWIN, MIGUELANGEL Fraser Primary Care Unavailable SHERWIN, MIGUELANGEL Fraser Attending Unavailable SHERWIN, MIGUELANGEL Fraser Primary Care Unavailable SHERWIN, MIGUELANGEL Fraser Referring Unavailable SHERWIN, MIGUELANGEL Fraser Primary Care Unavailable DEIDRE SOTO Referring Unavailable SHERWIN, MIGUELANGEL Fraser Primary Care Unavailable UZMA HANLEY Attending Unavailable SHERWIN, MIGUELANGEL Fraser Primary Care Unavailable SAVANNAH OGDEN Referring Unavailable SHERWIN, MIGUELANGEL Fraser Primary Care Unavailable WILLAM WILEY Referring Unavailabl e SHERWIN, MIGUELANGEL Fraser Primary Care Unavailable SHERWIN, MIGUELANGEL Fraser Referring Unavailable SHERWIN, MIGUELANGEL Fraser Primary Care Unavailable SHERWIN, MIGUELANGEL Fraser Referring Unavailable LASHAUN BLUE Attending Unavailable SHERWIN, MIGUELANGEL Fraser Primary Care Unavailable SLEIK, CHEMA RICKS Referring Unavailable SLEIKCHEMA Attending Unavailable SHERWIN, MIGUELANGEL Fraser Primary Care Unavailable SHERWIN, MIGUELANGEL Fraser Referring Unavailable DEIDRE SOTO Attending Unavailable SHERWIN, MIGUELANGEL Fraser Primary Care Unavailable STEPHON NEGRON Referring Unavailable SHERWIN, MIGUELANGEL Fraser Primary Care Unavailable SHERWIN, MIGUELANGEL Fraser Referring Unavailable STEPOHN NEGRON Attending Unavailable SHERWIN, MIGUELANGEL Fraser Primary Care Unavailable WILLOW MARCELO Attending Unavailable Beulah Pittman Attending Unavailable [place], Miguelangel Primary Care Unavailable Beulah Pittman Referring Unavailable Raissa Cerrato Referring Unavailable Raissa Cerrato Attending Unavailable Sherwin, Miguelangel Primary Care Unavailable Beulah Pittman Attending Unavailable Sherwin, Miguelangel Primary Care Unavailable Buelah Pittman Referring Unavailable ZURDO PATEL Attending Unavailable SHERWIN, MIGUELANGEL Fraser Primary Care Unavailable Allergies Allergy Classification Reported Allergen(s) Allergy Type Date of Onset Reaction(s) Facility (20 sources) simvastatin; Translations: [SIMVASTATIN] Drug Allergy 04-23-2016 Intolerance [facility] Repository Medications Current Medications Medication Drug Class(es) Dates Sig (Normalized) Sig (Original) acetaminophen 325 mg / HYDROcodone bitartrate 5 mg oral tablet (5 sources) Opioid Agonist Start: 05-11-2023 take 1 tablet by mouth every six hours as needed for pain Hydrocodone-Aceta minophen 5-325 mg tablet Active 1 {tbl} PO EVERY 6 HOURS NEEDED as needed for Pain 10 3 May 11, 2023 Right inguinal pain Right lower quadrant pain Start: 05-11-2023 take 1 tablet by sudeep th every six hours as needed Hydrocodone-Acetaminophen Active 1 TABLE T PO EVERY 6 HOURS NEEDED 10 May 11, 2023 [id number] 200 actuat albuterol 0.09 mg/actuat metered dose inhaler (20 sources) beta2-Adrenergic Agonist Start: 02-15-2025 take 2 puff(s) by inhalation every four hours as needed albuterol HFA (PROVENTIL HFA, VENTOLIN HFA) 90 mcg/actuation inhaler Inhale 2 puffs as instructed every 4 hours as needed. 1 each 02/15/2025 Active Start: 05-26-2023 End: 09-25-2024 take 2 puff(s) by inhalation every four hours as needed for wheezing albuterol HFA (VENTOLIN HFA) 90 mcg/actuation inhaler Indications: URI, acute , Wheezing Inhale 2 Puffs as instructed every 4 hours as needed for wheezing/shortness of breath. 1 Each 1 05/26/2023 09/25/2024 Discontinued Start: 11-04-2020 End: 11-09-2022 take 2 puff(s) by inhalation every four hours as needed for wheezing albuterol HFA (VENTOLIN HFA) 90 mcg/actuation inhaler Indications: Wheezing Inhale 2 Puffs as instructed every 4 hours as needed for Wheezing/Shortness of Breath. 18 g 3 11/04/2020 11/09/2022 Discontinued Comment on above: Inhale 2 Puffs as in structed every 4 hours as needed for Wheezing/Shortness of Breath. amLODIPine 5 mg oral tablet (20 sources) Dihydropyridine Calcium Channel Fara Start: 11-25-19 End: 05-06-20 25 take 1 tablet by mouth once daily Amlodipine 5 MG tablet Active 5 mg PO DAILY November 24, 2018 12:00am blood pressure Comment on above: Take 1 tablet by sudeep th once daily. aspirin 81 mg delayed release oral tablet (20 sources) Platelet Aggregation Inhibitor, Nonsteroidal Anti-inflammatory Drug Start: 11-25-19 19 take 1 tablet by mouth once daily Aspirin (Aspir-81) 81 MG tablet,delayed release (DR/EC) Active 81 mg PO DAILY November 24, 2018 12:00am heart health take 1 tablet by mouth once Aspi rin 81 mg tab Take 81 mg by mouth one time only. Pre cath Active atorvastatin 20 mg oral tablet (20 sources) HMG-CoA Reductase Inhibitor Start: 11-07-2021 End: 09-04-2024 take 1 tablet by mouth once daily atorvastatin (LIPITOR) 20 mg tablet Indications: Mixed hyperlipidemia Take 1 tablet by mouth once daily. 90 tablet 3 09/04/2024 Active Comment on above: Take 1 tablet by sudeep once daily. cephalexin 500 mg oral capsule (20 sources) Cephalosporin Antibacterial Start: 12-07-2018 take 1 capsule by mouth every eight hours Cephalexin 500 MG capsule Active 500 mg PO EVERY 8 HOURS 15 0 December 07, 2018 12:00am Start: 11-24-2018 End: 11-25-2018 take 1 capsule by mouth every six hours Cephalexin 250 MG capsule Discontinued 250 mg PO EVERY 6 HOURS November 24, 2018 12:00am November 25, 2018 11:34am cyclobenzaprine hydrochloride 10 mg oral tablet (10 sources) Muscle Relaxant Start: 11-24-2018 take 1 tablet by mouth three times daily Cyclobenzaprine 10 MG tablet Active 10 mg PO THREE TIMES A DAY November 24, 2018 12:00am muscle spasms fluticasone propionate 0.05 mg/actuat metered dose nasal spray (20 sources) Corticosteroid Start: 12-18-2024 End: 01-17-2025 take 2 spray(s) by mouth once daily fluticasone (FLONASE) 50 mcg/actuation nasal spray Indications: Rhinorrhea , URI, acute Use 2 sprays in each nostril once daily. Rinse mouth after use. 1 each 12/18/2024 01/17/2025 Active Start: 10-04-2020 End: 12-18-2024 take 1 spray(s) by mouth once daily fluticasone (FLONASE) 50 mcg/actuation nasal spray Indications: Rhinorrhea Use 1 spray in each nostril once daily. Rinse mouth after use. 3 each 3 12/18/2024 Active Comment on above: Use 1 [place] in each nostril once daily. Rinse mouth after use. hydroCHLOROthiazide 25 mg oral tablet (20 sources) Thiazide Diuretic Start: 2018 End: 2024 take 1 tablet by mouth once daily hydroCHLOROthiazide 25 mg tablet Indications: Essential hypertension Take 1 tablet by mouth once daily. 90 tablet 3 01/29/2025 Active Comment on above: Take 1 tablet by sudeep th once daily. hydroxychloroquine sulfate 200 mg oral tablet (20 sources) Antimalarial, Antirheumatic Agent Start: 2018 take 1 tablet by mouth twice daily hydroxychloroquine (PLAQUENIL) 200 mg tablet Take 200 mg by mouth two times a day. 05/02/2019 Active Start: 05-02-2019 take 1 tablet by sudeep th once daily hydroxychloroquine (PLAQUENIL) 200 mg tablet Take 200 mg by mouth once daily. 05/02/2019 Active Comment on above: Take 200 mg by mouth once daily. losartan potassium 100 mg oral tablet (20 sources) Angiotensin 2 Receptor Fara Start: 9 End: 5 take 1 tablet by mouth once daily losartan (COZAAR) 100 mg tablet Indications: Essential hypertension, benign Take 1 tablet by mouth once daily. 90 tablet 3 09/04/2024 Active Comment on above: Take 1 tablet by sudeep th once daily. 24 hr metoprolol succinate 25 mg extended release oral tablet (20 sources) beta-Adrenergic Fara Start: 2 End: 5 take 2 tablets by mouth once daily metoprolol succinate ER (TOPROL XL) 25 mg 24 hr tablet Indications: Edema of leg Take 2 tablets by mouth once daily. 90 tablet 3 11/14/2024 Active Comment on above: Take 1 tablet by sudeep th once daily. perflutren lipid microspheres 1.3 mL in NaCl (PF) 0.9% 10 mL injection (DEFINITY) (17 sources) Start: 5 End: 5 perflutren lipid microspheres 1.3 mL in NaCl (PF) 0.9% 10 mL injection (DEFINITY) Start: 11-14-2024 End: 11-21-2024 perflutren lipid microsphere s 1.3 mL in NaCl (PF) 0.9% 10 mL injection (DEFINITY) Start: 10-11-2023 End: 10-18-2023 perflutren lipid microsphere s 1.3 mL in NaCl (PF) 0.9% 10 mL injection (DEFINITY) Start: 08-04-2021 End: 11-03-2022 perflutren lipid microsphere s 1.3 mL in NaCl (PF) 0.9% 10 mL injection (DEFINITY) polyethylene glycol 3350 604371 mg / potassium chloride 2970 mg / sodium bicarbonate 6740 mg / sodium chloride 5860 mg / sodium sulfate 68116 mg powder for oral solution (1 source) Osmotic Laxative Start: 09-28-2024 End: 09-28-2024 peg 3350-Electrolytes (GOLYTELY) 236-22.74-6.74 -5.86 gram suspension Indications: Family history of colon cancer Take 4,000 mL by mouth one time only for 1 dose. Refer to printed prep instructions from your provider. 4000 mL 09/28/2024 09/28/2024 Active 125 ml sodium chloride 9 mg/ml prefilled syringe (17 sources) Start: 11-14-2024 End: 11-21-2024 sodium chloride 0.9 % (flush) 10 mL (BD POSIFLUSH) Start: 10-11-2023 End: 10-18-2023 sodium chloride 0.9 % (flush ) 10 mL (BD POSIFLUSH) Start: 08-04-2021 End: 11-03-2022 sodium chloride 0.9 % (flush ) 10 mL (BD POSIFLUSH) tamsulosin hydrochloride 0.4 mg oral capsule (20 sources) alpha-Adrenergic Fara Start: 12-21-2022 End: 03-23-2024 take 1 capsule by mouth once daily at bedtime tamsulosin (FLOMAX) 0.4 mg Indications: Benign prostatic hyperplasia without lower urinary tract symptoms Take 1 capsule by mouth daily at bedtime. 90 capsule 3 03/23/2024 Active Start: 10-30-2020 End: 11-07-2021 take 1 capsule by mouth once daily at bedtime tamsulosin (FLOMAX) 0.4 mg Indications: Benign prostatic hyperplasia without lower urinary tract symptoms Take 1 capsule by mouth daily at bedtime. 90 capsule 3 11/07/2021 Active Comment on above: Take 1 capsule by [place] daily at bedtime. ticagrelor 90 mg oral tablet (20 sources) Start: 11-15-19 End: 02-29-20 take 1 tablet by mouth twice daily ticagrelor (BRILINTA) 90 mg tablet Take 1 tablet by mouth two times a day. 60 tablet 3 01/29/2025 Active vardenafil 20 mg oral tablet (10 sources) Phosphodiesterase 5 Inhibitor Start: 11-25-19 take 1 tablet by mouth once daily as needed Vardenafil (Levitra) 20 MG tablet Active 20 mg PO DAILY NEEDED as needed for ERECTILE November 24, 2018 12:00am Completed/Discontinued Medications Medication Drug Class(es) Dates Sig (Normalized) Sig (Original) amoxicillin 875 mg / clavulanate 125 mg oral tablet (10 sources) Penicillin-class Antibacterial Start: 12-05-2018 End: 12-07-2018 Amoxicillin-Pot Clavulanate (Augmentin 875-125 Tablet) 1 EACH tablet Discontinued 1 NMA PO TWICE A DAY December 05, 2018 12:00am December 07, 2018 12:03pm antibiotic Comp Stocking,Knee,Regu lar,Med misc (12 sources) Start: 01-16-2019 End: 05-26-2023 Comp Stocking,Knee,Regu lar,Med misc Indications: Acute deep vein thrombosis (DVT) of distal end of right lower extremity (HCC) , Varicose veins of both legs with edema , Acute deep vein thrombosis (DVT) of femoral vein of right lower extremity (HCC) , History of cellulitis 2 Each once daily. 2 Each 1 01/16/2019 05/26/2023 Discontinued Start: 01-16-2019 Comp Stocking, Knee,Regular,Med misc Indications: Acute deep vein thrombosis (DVT) of distal end of right lower extremity (HCC) , Varicose veins of both legs with edema , Acute deep vein thrombosis (DVT) of femoral vein of right lower extremity (HCC) , History of cellulitis 2 Each once daily. 2 Each 1 01/16/2019 Active Comment on above: 2 Each once daily. iv contrast (will be provided with radiology test) (20 sources) Start: End: inject 1 dose intravenously once iv contrast (will be provided with radiology test) CTA Chest. No IV access, insert saline lock prior to the sedation, infusion, injection for imaging exam. Discontinue saline lock post exam. If Pt. has a central line or IVAD, may access for administration according to line specific nursing protocol. Once exam is complete flush line and de-access according to line specific nursing protocol in the CT contrast administration guidelines link. 1 each 10/23/2024 10/24/2024 Start: 10-23-2024 inject 1 dose intravenously on ce iv contrast (will be provided with radiology test) CTA ABD/PEL - No IV access, insert saline lock prior to the sedation, infusion, injection for imaging exam. Discontinue saline lock post exam. If Pt. has a central line or IVAD, may access for administration according to line specific nursing protocol. Once exam is complete flush line and de-access according to line specific nursing protocol in the CT contrast administration guidelines link. 1 each 10/23/2024 Active Start: 10-23-2024 End: 10-24-2024 inject 1 dose intravenously once iv contrast (will be provided with radiology test) CTA Chest. No IV access, insert saline lock prior to the sedation, infusion, injection for imaging exam. Discontinue saline lock post exam. If Pt. has a central line or IVAD, may access for administration according to line specific nursing protocol. Once exam is complete flush line and de-access according to line specific nursing protocol in the CT contrast administration guidelines link. 1 each 10/23/2024 10/24/2024 Active Start: 10-23-2024 End: 10-23-2024 inject 1 dose intravenously once iv contrast (will be provided with radiology test) CTA Chest. No IV access, insert saline lock prior to the sedation, infusion, injection for imaging exam. Discontinue saline lock post exam. If Pt. has a central line or IVAD, may access for administration according to line specific nursing protocol. Once exam is complete flush line and de-access according to line specific nursing protocol in the CT contrast administration guidelines link. 1 each 10/23/2024 10/23/2024 Discontinued Start: 10-23-2024 End: 10-23-2024 inject 1 dose intravenously once iv contrast (will be provided with radiology test) CTA ABD/PEL LE - No IV access, insert saline lock prior to the sedation, infusion, injection for imaging exam. Discontinue saline lock post exam. If Pt. has a central line or IVAD, may access for administration according to line specific nursing protocol. Once exam is complete flush line and de-access according to line specific nursing protocol in the CT contrast administration guidelines link. 1 each 10/23/2024 10/23/2024 Discontinued (Course of therapy completed) predniSONE 20 mg oral tablet (20 sources) Start: 05-26-2023 End: 05-31-2023 take 1 tablet by mouth once daily at mealtime predniSONE (DELTASONE) 20 mg tablet Indications: URI, acute , Wheezing Take 1 tablet by mouth once daily for 5 days. Take daily with food. 5 tablet 05/26/2023 05/31/2023 Start: 05-24-2023 predniSONE (DE LTASONE) 10 mg tablet Take 10 mg by mouth as needed. 05/24/2023 Active Comment on above: Take 1 tablet by sudeep th once daily for 5 days. Take daily with food. Take 10 mg by mouth as needed. Problems Active Problems Problem Classification Problem Date Documented Da te Episodic/Chronic Chronic kidney disease (2 sources) Chronic kidney disease, stage 2 (mild); Translations: [CKD (chronic kidney disease) stage 2, GFR 60-89 ml/min] Onset: 02-13-2025 Chronic Conditions associated with dizziness or vertigo (2 sources) Dizziness and giddiness; Translations: [Dizziness and giddiness] Onset: 01-29-2025 01-29-2025 Episodic Coronary atherosclerosis and other heart disease (19 sources) Coronary arteriosclerosis; Translations: [Atherosclerotic heart disease of [place] coronary artery with other forms of angina pectoris] Onset: 12-21-2024 11-16-2024 Chronic Coronary atherosclerosis and other heart disease (17 sources) Patient post percutaneous transluminal coronary angioplasty; Translations: [Coronary angioplasty status] Onset: 12-26-2024 12-26-2024 Episodic Deficiency and other anemia (5 sources) Anemia; Translations: [Anemia, unspecified] 11-15-2023 Episodic Disorders of lipid metabolism (20 sources) Mixed hyperlipidemia; Translations: [Mixed hyperlipidemia] Onset: 04-16-2015 Chronic Essential hypertension (20 sources) Essential (primary) hypertension; Translations: [Benign essential hypertension] Onset: 05-05-2017 Resolved: 05-26-2023 Chronic Genitourinary congenital anomalies (20 sources) Right renal agenesis; Translations: [Renal agenesis, unilateral] Onset: 05-21-2012 Chronic Heart valve disorders (20 sources) Aortic valve disorder; Translations: [Nonrheumatic aortic valve disorder, unspecified] Onset: 08-04-2021 Resolved: 05-14-2022 Chronic Hyperplasia of prostate (14 sources) Benign prostatic hyperplasia; Translations: [Benign prostatic hyperplasia without lower urinary tract symptoms] Onset: 05-25-2024 Chronic Immunizations and screening for infectious disease (2 sources) Needs influenza immunization; Translations: [Encounter for immunization] Onset: 04-09-2025 Episodic Other and unspecified benign neoplasm (20 sources) History of polyp of colon; Translations: [Personal history of colonic polyps] 09-26-2014 Episodic Other circulatory disease (13 sources) History of angioplasty; Translations: [Peripheral vascular angioplasty status with implants and grafts] Onset: 01-10-2025 01-10-2025 Chronic Other circulatory disease (1 source) Peripheral vascular angioplasty status with implants and grafts; Translations: [S/P angioplasty with stent] Onset: 01-10-2025 Chronic Other connective tissue disease (10 sources) Foot pain; Translations: [Pain in right foot] 12-06-2018 Episodic Other diseases of kidney and ureters (1 source) Renal impairment; Translations: [Disorder of kidney and ureter, unspecified] Episodic Other lower respiratory disease (3 sources) Wheezing; Translations: [Wheezing] 05-26-2023 Episodic Other lower respiratory disease (8 sources) Dyspnea; Translations: [Shortness of breath] 10-23-2024 Episodic Other lower respiratory disease (1 source) Dyspnea on exertion; Translations: [Other forms of dyspnea] 10-23-2024 Episodic Other lower respiratory disease (1 source) Elevated diaphragm; Translations: [Disorders of diaphragm] 03-13-2025 Episodic Other lower respiratory disease (3 sources) Disorders of diaphragm; Translations: [Elevated diaphragm] Onset: 03-13-2025 Episodic Other lower respiratory disease (1 source) Hypoxia 03-16-2025 Episodic Other lower respiratory disease (1 source) Other disorders of lung; Translations: [Small airways disease] Onset: 04-17-2025 Episodic Other male genital disorders (20 sources) Secondary erectile dysfunction; Translations: [Male erectile dysfunction, unspecified] Onset: 06-09-2006 06-09-2006 Chronic Other non-traumatic joint disorders (10 sources) Ankle pain; Translations: [Pain in right ankle and joints of right foot] 12-06-2018 Episodic Other nutritional; endocrine; and metabolic disorders (20 sources) Obese class II; Translations: [Obesity, unspecified] Onset: 08-04-2021 08-04-2021 Chronic Other nutritional; endocrine; and metabolic disorders (1 source) Body mass index (BMI) 36.0-36.9, adult; Translations: [Class 2 obesity with body mass index (BMI) of 36.0 to 36.9 in adult, unspecified obesity type, unspecified whether serious comorbidity present] Onset: 04-09-2025 Chronic Other upper respiratory disease (1 source) Nasal discharge; Translations: [Other specified disorders of nose and nasal sinuses] 12-18-2024 Episodic Residual codes; unclassified (1 source) Hypoxia; Translations: [Idiopathic sleep related nonobstructive alveolar hypoventilation] 03-16-2025 Chronic Residual codes; unclassified (1 source) Idiopathic sleep related nonobstructive alveolar hypoventilation; Translations: [Nocturnal hypoxemia] Onset: 04-18-2025 Chronic Residual codes; unclassified (1 source) Obstructive sleep apnea (adult) (pediatric); Translations: [Obstructive sleep apnea] Onset: 05-11-2025 Chronic Residual codes; unclassified (12 sources) Edema of lower extremity; Translations: [Localized edema] Episodic Residual codes; unclassified (4 sources) Family history of cancer of colon; Translations: [Family history of malignant neoplasm of digestive organs] 09-25-2024 Episodic Residual codes; unclassified (1 source) Localized edema; Translations: [Edema of leg] Onset: 11-14-2024 Episodic Rheumatoid arthritis and related disease (20 sources) Inflammatory polyarthropathy; Translations: [Inflammatory polyarthropathy] Onset: 05-07-2021 Chronic Screening and history of mental health and substance abuse codes (2 sources) Encounter for screening examination for other mental health and behavioral disorders; Translations: [Encounter for screening for depression] Onset: 04-09-2025 Episodic Unclassified (1 source) Unknown / UNK(Unknown) Onset: 05-05-2017 Unclassified (1 source) Class 2 obesity with body mass index (BMI) of 36.0 to 36.9 in adult, unspecified obesity type, unspecified whether serious comorbidity present; Translations: [Class 2 obesity with body mass index (BMI) of 36.0 to 36.9 in adult, unspecified obesity type, unspecified whether serious comorbidity present] Onset: 04-09-2025 Past or Other Problems Problem Classification Problem Date Documented Da te Episodic/Chronic Abdominal pain (20 sources) Right inguinal pain; Translations: [Right lower quadrant pain] Onset: 05-26-2023 Resolved: 05-26-2023 05-11-2023 Episodic Deficiency and other anemia (1 source) Anemia, unspecified; Translations: [Anemia, unspecified type] Onset: 09-26-2024 Episodic Diabetes mellitus without complication (20 sources) Prediabetes; Translations: [Prediabetes] Onset: 02-13-2013 Resolved: 10-30-2020 Episodic Genitourinary symptoms and ill-defined conditions (20 sources) Proteinuria; Translations: [Other proteinuria] Onset: 07-21-2019 07-21-2019 Episodic Osteoarthritis (20 sources) Bilateral shoulder osteoarthritis; Translations: [Primary osteoarthritis, right shoulder] Onset: 02-24-2017 Resolved: 10-30-2020 10-30-2020 Chronic Other diseases of kidney and ureters (1 source) Other obstructive and reflux uropathy; Translations: [BPH with obstruction/lower urinary tract symptoms] Onset: 12-08-2024 Episodic Other lower respiratory disease (1 source) Shortness of breath; Translations: [SOB (shortness of breath)] Onset: 01-17-2025 Episodic Other lower respiratory disease (1 source) Other forms of dyspnea; Translations: [Dyspnea on exertion] Onset: 10-24-2024 Episodic Other non-traumatic joint disorders (20 sources) Shoulder joint pain; Translations: [Pain in unspecified shoulder] Onset: 06-21-2006 Resolved: 09-26-2014 09-26-2014 Episodic Other non-traumatic joint disorders (20 sources) Hip pain; Translations: [Pain in left hip] Onset: 02-24-2017 Resolved: 01-16-2019 01-16-2019 Episodic Other nutritional; endocrine; and metabolic disorders (20 sources) Obesity; Translations: [Obesity, unspecified] Onset: 02-13-2013 Resolved: 05-14-2022 02-13-2013 Chronic Other screening for suspected conditions (not mental disorders or infectious disease) (20 sources) Patient encounter status; Translations: [Encounter for screening for cardiovascular disorders] Onset: 01-16-2019 Resolved: 05-14-2022 08-04-2021 Episodic Other skin disorders (20 sources) History of cellulitis; Translations: [Personal history of diseases of the skin and subcutaneous tissue] Onset: 01-16-2019 Resolved: 05-07-2021 05-07-2021 Episodic Other upper respiratory disease (1 source) Other specified disorders of nose and nasal sinuses; Translations: [Rhinorrhea] Onset: 12-18-2024 Episodic Other upper respiratory infections (4 sources) Acute upper respiratory infection; Translations: [Acute upper respiratory infection, unspecified] Onset: 12-18-2024 05-26-2023 Episodic Phlebitis; thrombophlebitis and thromboembolism (20 sources) Acute deep venous thrombosis of right femoral vein; Translations: [Acute embolism and thrombosis of right femoral vein] Onset: 01-13-2019 Resolved: 10-30-2020 10-30-2020 Episodic Residual codes; unclassified (1 source) Family history of malignant neoplasm of digestive organs; Translations: [Family history of colon cancer] Onset: 09-28-2024 Episodic Skin and subcutaneous tissue infections (20 sources) Cellulitis of foot; Translations: [Cellulitis of right lower limb] Onset: 11-28-2018 Resolved: 05-26-2023 11-11-2022 Episodic Spondylosis; intervertebral disc disorders; other back problems (20 sources) Lumbosacral radiculopathy; Translations: [Radiculopathy, lumbosacral region] Onset: 05-21-2012 Resolved: 05-14-2022 05-21-2012 Episodic Sprains and strains (20 sources) Sprain of left knee; Translations: [Sprain of unspecified site of left knee, initial encounter] Onset: 12-09-2012 Resolved: 09-26-2014 09-26-2014 Episodic Unclassified (10 sources) Redness of the right foot 04-16-2022 Unclassified (6 sources) Patient encounter status 10-23-2024 Varicose veins of lower extremity (20 sources) Varicose veins of lower limb co-occurrent with edema; Translations: [Varicose veins of bilateral lower extremities with other complications] Onset: 01-16-2019 01-16-2019 Episodic Results Test Name Value Interpretation Reference Range Facility CNOVon 05-11-2025 CNOV Office Visit (PLYM ) -- GORAN GABRIEL ([id number]) 1945 M Date Time Provider Department 05/11/25 2:30 PM ZURDO PATEL [facility] During your visit today, we recorded the following information about you: Pulse Blood pressure Weight Height 73/minute 116/88 104.8 kg 1.702 m Zurdo Patel MD 05/11/2025 1:53 PM Signed [facility] OF PULMONARY MEDICINE Date: May 11, 2025 Patient Name: Goran Gabriel PRIMARY CARE PHYSICIAN: Miguelangel Courtney MD REASON FOR CONSULT: Patient presents with: Sleep Apnea HPI: The patient is a 79-year-old male with chronic dyspnea presenting for initial evaluation after a recent sleep study. The patient was recently evaluated by Dr. Soto for chronic dyspnea, who ordered a home sleep study. He reports that Dr. Soto described his lungs as follows: one lung was functioning well, while the other was not drawing in enough air, with possible diaphragm involvement. The home sleep study, set up by his , confirmed severe KANCHAN. He was not previously aware of this diagnosis. He denies a history of asthma. He reports good sleep quality, falling asleep quickly without difficulty. However, he wakes 2-3 times nightly to urinate. He uses Flonase nightly before bed and is able to fall asleep easily, but upon waking in the morning, he experiences nasal obstruction described as feeling like a bad cold. This improves after blowing his nose and sitting in a cooler environment, such as his living room recliner. He has seen commercials for the Inspire device but has not pursued this option. He has an upcoming appointment with Dr. Soto's nurse practitioner, Raissa Lara, in July. IMMUNIZATIONS: Immunization History Administered Date(s) Administered COVID-19 original vaccine, full dose, monovalent (MODERNA) 09/09/2020 10/07/2020 05/21/2021 COVID-19 vaccine, age 12+ yr ([employer] COMIRNATY) 07/15/2023 TD Adult 07/12/2001 08/12/2011 influenza (HD-IIV3) vaccine, age 65+ yr, high dose, trivalent, PF (FLUZONE HIGH-DOSE) 04/16/2015 04/23/2016 05/10/2017 05/20/2018 03/29/2019 06/30/2023 04/09/2025 influenza (HD-IIV4) vaccine, age 65+ yr, high dose, quadrivalent, PF (FLUZONE HIGH-DOSE) 05/16/2020 05/07/2021 05/14/2022 influenza vaccine, unspecified formulation 06/09/2006 05/11/2009 04/22/2012 pneumococcal conjugate (PCV13) vaccine, 13 valent (PREVNAR 13) 10/16/2015 pneumococcal polysaccharide (PPV23) vaccine, 23 valent (PNEUMOVAX 23) 09/15/2004 08/12/2011 respiratory syncytial virus (RSV) vaccine, bivalent (ABRYSVO) 06/30/2023 zoster (RZV) vaccine, recombinant (SHINGRIX) 07/15/2023 REVIEW OF SYSTEMS: Constitutional: (-) sleep disturbance Ears/Nose/Mouth/Throat: (+) nasal congestion Genitourinary: (+) nocturia PAST MEDICAL HISTORY Diagnosis Date Aortic stenosis mild Benign prostatic hyperplasia with lower urinary tract symptoms, symptom details unspecified BPH associated with nocturia CAD (coronary artery disease) S/p stent Hyperglycemia Hyperlipidemia Hypertension IMPOTENCE, ORGANIC ORIGN Kidney congenitally absent, right L-S radiculopathy right leg, Stenosis on lumbar MRI Obesity Personal history of colonic polyps PAST SURGICAL HISTORY Procedure Laterality Date APPENDECTOMY COLONOSCOPY 10/05/2018 COLONOSCOPY FLX DX W/COLLJ SPEC WHEN PFRMD 09/05/2013 normal colon - prior polyps 5 year follow up COLSC FLX W/RMVL OF TUMOR POLYP LESION SNARE TQ 01/20/2005 COLSC FLX W/RMVL OF TUMOR POLYP LESION SNARE TQ 06/13/2010 polyps cecum and 45cm, tubular adenomas PAST SURGICAL HISTORY OF 12/25/2024 INSERT INTRACORONARY STENT-PER MAJOR VESSEL OR BRANCH RPR 1ST INGUN HRNA AGE 5 YRS/> REDUCIBLE Hernia repair, inguinal bilateral RX RIB FRACTURE W 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 [email or web address] Gen: Alert AND Oriented x 3, No acute distress HEENT: Normocephalic, Atraumatic, Pupils Equally Reactive to light and accomodation, moist mucous membranes, Neck: Supple, no rigidity, Trachea is midline, no Lymphadenopathy Lungs: Clear to Auscultation bilaterally , No wheezing, rhonchi or rales Heart: Regular Rate and Rhythm, Normal S1 and S2, no murmurs, rhonchi or wheezing Abd: Soft, Nontender and nodistended, Positive Bowel Sounds x all four quadrants Ext: No edema, +2 pulses Neuro: CN II - XII grossly intact, no sensory/motor deficits noted Laboratory and Imaging: Last Spirometry SPIROMETRY WITH DILATOR IF OBSTRUCTED Collected: 01/17/2025 9:44 AM (Final result) Narrative: [facility] (more content not included)... Normal [facility] POLYSOMNOGRAM (PSG)/HOME SLE EP APNEA TEST (HSAT)on 04-19-2025 POLYSOMNOGRAM (PSG)/HOME SLEEP APNEA TEST (HSAT) [facility] at [address], [address], [place] [address] ; Home Sleep Apnea Test (HSAT) Study Report Name: GORAN GABRIEL Date of Study: 04/19/2025 [facility]#: [id number] Age: 79 (: 1945) ESS: 02/01 Neck Circ. (cm): 48 Height (cm): 168 cm Weight (kg): 103 kg BMI: 36.5 Referring Provider: DEIDRE SOTO Mailcode: Sleep history: The patient is a 79 year old male with a history of waking up with a dry mouth, breathing from your mouth during sleep. The patient endorses being a habitual side sleeper. The patient is here for assessment of obstructive sleep apnea. Pertinent medical history: Hypertension, Coronary artery disease, Hyperlipidemia, Obesity Medications: Aspirin, Lipitor, Hydroxychloroquine, Tamsulosin, Brilinta, Losartan, Metoprolol, Hydrochlorothiazide Sleep procedure: PSG unattended Type III, minimum of 4 parameters (42309) Procedure: This study was performed using a Type III ambulatory PSG device and was unattended. The patient was instructed on proper use of the device by a registered arrt technologist. The monitored parameters included heart rate, oxygen saturation, continuous airflow with thermistor and nasal pressure transducer, snoring via nasal pressure transducer, chest and abdominal effort, and body position. MARITZA definition: Respiratory event index (MARITZA), calculated as respiratory events x 60 / TRT (total recording time in minutes). Note: the apnea hypopnea index has been replaced by the respiratory event index for home sleep apnea test. Since the home sleep apnea test does not measure sleep, the MARITZA is most accurate index of respiratory events. The MARITZA is a surrogate of the AHI per the AASM Manual for Scoring of Sleep and Associated Events version 3. Apnea definition: The peak signal excursions drop by >90% of pre-event baseline using an oronasal thermal sensor (diagnostic study), PAP device flow (titration study) or an alternative apnea sensor (diagnostic study). The duration of the >90% drop in signal excursion is >=10 seconds. Hypopnea definition: The peak signal excursions drop by >= 30% of pre-event baseline using nasal pressure (diagnostic study), PAP device flow (titration study) or an alternative hypopnea sensor (diagnostic study). The duration of the >= 30% drop in signal excursion is >=10 seconds. There is a greater than or equal to 4% oxygen desaturation from pre-event baseline. RESPIRATORY DATA: The study started at 23:00:00 and ended at 04:15:45 and the total recording time was 316 minutes. By convention, sleep is assumed for the whole recording. Snoring was noted. There was a total of 323 respiratory events. Of these events, the total number of apneas was 24 (24 obstructive, 0 mixed, and 0 central (0.0%)) and 299 hypopneas. The central apnea index (ELLEN) was 0.0. The respiratory event index (MARITZA) was 61.3 events per hour of study time. The mean oxygen saturation during the study was 89.0%, with a minimum oxygen saturation of 76.0%. The patient spent 165.3 minutes at oxygen saturation measured less than 90% (52.3% of recording time) and 97.2 minutes at oxygen saturation measured at or less than 88% (30.8% of recording time). Time MARITZA/AHI Supine 214.5 min 68.3 Off-Supine 101.5 min 46.7 Total 316.0 min 61.3 ECG DATA: The average heart rate was 75 bpm with a range of 66 bpm to 102 bpm. ICSD DIAGNOSIS: Obstructive Sleep Apnea Syndrome [G47.33] IMPRESSION/RECOMMENDATIONS : 1. This study confirms a diagnosis of severe obstructive sleep apnea. 2. The results of this study may represent an underestimation of the degree of obstructive sleep apnea, especially hypopneas, because of the known limitations of HSAT, such as inability to record arousals because EEG is not recorded. 3. Untreated sleep apnea is associated with a variety of consequences including but not limited to hypertension, heart disease, stroke, obesity and daytime sleepiness that can affect normal daytime functioning. 4. PAP therapy is the usual first line therapy. Other treatment options for KANCHAN may include weight loss, positional therapy, oral appliance, upper airway surgery, upper airway stimulation, treatment of allergies and avoidance of alcohol and sedating medications (such as opioids, benzodiazepines, and muscle relaxers) that can cause respiratory depression. In many situations, a PAP titration study is the next step. INTERPRETING PHYSICIAN: China David MD,[facility] I attest that I have performed epoch by epoch review of the entire raw data and find this study to be technically adequate. Report Digitally Signed By: CHINA DAVID (04/26/2025 3:33:21 PM) [facility] -- GORAN GABRIEL ([id number]) 1945 M Date Time Provider Department 04/17/25 11:30 AM RAISSA ELKINS PULMWS During your visit today, we recorded the following information about you: Pulse Respiration Blood pressure Weight 78/minute 18/minute 104/62 103.4 kg Raissa Elkins APRN.[employer]ER 04/17/2025 12:23 PM Signed Pulmonary Medicine Patients name: Goran Gabriel PCP: Miguelangel Courtney MD CC: follow-up HPI: Goran Gabriel is a 79 year old male never smoker with PMH significant for class II obesity, aortic stenosis, HLD, HTN, single kidney (congenital absence), CAD s/p stent (12/2024, on Brilinta). 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 New patient 02/2025 for shortness of breath which had been ongoing for years. Prior PFT showed moderate restriction and small airway obstruction. Recommended Sniff test to evaluate diaphragm. Current inhaled therapy with PRN Albuterol. He presents today for follow-up. Since his last visit, he reports he never picked up Albuterol as he wasn't sure how to use it. He did complete Sniff test which was negative for paralysis. He was ordered a HSAT and is due to complete that test later this week. Overall reports symptoms are unchanged from prior. He does note that the hot/humid temperatures over the summer made it harder for him to breath which has recently improved as the weather changed. Denies wheezing specifically but will sometimes cough first thing in the morning. Will occasionally cough up sputum but does not look at the color. No fevers, chills, or night sweats. Rare lower extremity edema. No recent hospitalizations or ED visits or upper respiratory infections. He is currently working on weight loss, focusing on his diet. PAST MEDICAL HISTORY Diagnosis Date Aortic stenosis mild BPH associated with nocturia CAD (coronary artery disease) S/p stent Hyperglycemia Hyperlipidemia Hypertension IMPOTENCE, ORGANIC ORIGN Kidney congenitally absent, right L-S radiculopathy right leg, Stenosis on lumbar MRI Obesity Personal history of colonic polyps Allergies: Simvastatin Intolerance Comment:myalgias Medication List Accurate as of April 17, 2025 7:42 AM. If you have any questions, ask your nurse or doctor. CONTINUE taking these medications albuterol HFA 90 mcg/actuation inhaler Commonly known as: PROVENTIL HFA, VENTOLIN HFA Inhale 2 puffs as instructed every 4 hours as needed. Aspirin 81 mg Tab atorvastatin 20 mg tablet Commonly known as: LIPITOR Take 1 tablet by mouth once daily. fluticasone 50 mcg/actuation nasal spray Commonly known as: FLONASE Use 1 spray in each nostril once daily. Rinse mouth after use. hydroCHLOROthiazide 25 mg tablet Take 1 tablet by mouth once daily. hydrOXYchloroQUINE 200 mg tablet Commonly known as: PLAQUENIL iv contrast (will be provided with radiology test) CTA ABD/PEL - No IV access, insert saline lock prior to the sedation, infusion, injection for imaging exam. Discontinue saline lock post exam. If Pt. has a central line or IVAD, may access for administration according to line specific nursing protocol. Once exam is complete flush line and de-access according to line specific nursing protocol in the CT contrast administration guidelines link. losartan 100 mg tablet Commonly known as: COZAAR Take 1 tablet by mouth once daily. metoprolol succinate ER 25 mg 24 hr tablet Commonly known as: TOPROL XL Take 2 tablets by mouth once daily. predniSONE 10 mg tablet Commonly known as: DELTASONE tamsulosin 0.4 mg Commonly known as: FLOMAX Take 1 capsule by mouth daily at bedtime. ticagrelor 90 mg tablet Commonly known as: BRILINTA TAKE 1 TABLET TWICE DAILY DATA: I personally reviewed and analyzed all labs, radiographs and available pulmonary function testing PFT: 01/2025 Spirometry indicates no obstruction. The reduced FVC could indicate restriction, recommend lung volumes for definitive determination. Decrease in TLC indicates restriction. CXR: Last XR Chest - Impression Only XR CHEST FLUORO SNIFF TEST Exam End: 03/13/2025 2:14 PM (Final result) Impression: IMPRESSION: Decreased excursion of the right hemidiaphragm, without convincing evidence of paralysis. Health And Safety Inspector: PSCB Transcribe Date/Time: Mar 14 2025 10:55A... Sniff test: 03/13/25 IMPRESSION: Decreased excursion of the right hemidiaphragm, without convincing evidence of paralysis. Health And Safety Inspector: PSCB Transcribe Date/Time: Mar 14 2025 10:55A Dictated by : BRIAN RUIZ MD This examination was interpreted and the report reviewed and electronically signed by: BRIAN RUIZ MD on Mar 14 2025 11:17AM EST Review of Systems Constitutional: Negative for activity change, appetite change, fever and unexpected weight change. HENT: Negative for c (more content not included)... Normal [facility] CBC W/Diff, Automatedon 10-0 Absolute Lymph 1.17 X10 3/uL Normal 0.83-4.51 [facility] Comment on above: Performed By: #### L 100.0100, [id number] #### [facility] [address] [place], [address] Absolute Neut 7.1 X10 3/uL Normal 2.0-7.7 [facility] Comment on above: Performed By: #### L 100.0100, [id number] #### [facility] [address] [place], [address] Basophils/100 WBC (Bld) 0.4 % Normal 0-1 [facility] Comment on above: Performed By: #### L 100.0100, [id number] #### [facility] [address] [place], [address] Eosinophils/100 WBC (Bld) 1.4 % Normal 0-5 [facility] Comment on above: Performed By: #### L 100.0100, [id number] #### [facility] [address] [place], [address] Erythrocyte distribution width (RBC) [Ratio] 12.8 % Normal 11.6-14.6 [facility] Comment on above: Performed By: #### L 100.0100, [id number] #### [facility] [address] [place], [address] Hematocrit (Bld) [Volume fraction] 34.4 % Low 40-54 [facility] Comment on above: Performed By: #### L 100.0100, [id number] #### [facility] [address] [place], [address] Hemoglobin (Bld) [Mass/Vol] 11.6 g/dL Low 13.0-16.5 [facility] Comment on above: Performed By: #### L 100.0100, [id number] #### [facility] [address] [place], [address] IG% 1.300 High 0.0-0.9 [facility] Comment on above: Result Comment: IG% - Immature Granulocytes (promyelocytes, myelocytes and metamyelocytes) > 1% indicates that a LEFT SHIFT is Present. Performed By: #### L 100.0100, [id number] #### [facility] [address] [place], [address] Lymphocytes/100 WBC (Bld) 12.7 % Low 19-41 [facility] Comment on above: Performed By: #### L 100.0100, [id number] #### [facility] [address] [place], [address] MCH (RBC) [Entitic mass] 31.5 pg Normal 27.0-32.0 [facility] Comment on above: Performed By: #### L 100.0100, [id number] #### [facility] [address] [place], [address] MCHC (RBC) [Mass/Vol] 33.7 g/dL Normal 32-36 [facility] Comment on above: Performed By: #### L 100.0100, [id number] #### [facility] [address] [place], [address] MCV (RBC) [Entitic vol] 93.5 fL Normal 80-94 [facility] Comment on above: Performed By: #### L 100.0100, [id number] #### [facility] [address] [place], [address] Monocytes/100 WBC (Bld) 7.0 % Normal 0-10 [facility] Comment on above: Performed By: #### L 100.0100, [id number] #### [facility] [address] [place], [address] Neutrophils/100 WBC (Bld) 77.2 % High 47-70 [facility] Comment on above: Performed By: #### L 100.0100, [id number] #### [facility] [address] [place], [address] Nucleated RBC (Bld) [#/Vol] 0 10*3/uL Normal 0-5 [facility] Comment on above: Performed By: #### L 100.0100, [id number] #### [facility] [address] [place], [address] Platelet mean volume (Bld) [Entitic vol] 11.0 fL Normal 6.2-12.0 [facility] Comment on above: Performed By: #### L 100.0100, [id number] #### [facility] [address] [place], [address] Platelets (Bld) [#/Vol] 197 10*3/uL Normal 150-450 [facility] Comment on above: Performed By: #### L 100.0100, [id number] #### [facility] [address] [place], [address] RBC (Bld) [#/Vol] 3.68 10*6/uL Low 4.6-6.2 [facility] Comment on above: Performed By: #### L 100.0100, [id number] #### [facility] [address] [place], [address] RDW SD 43.7 fl Normal 35.1-43.9 [facility] Comment on above: Performed By: #### L 100.0100, [id number] #### [facility] [address] [place], [address] WBC (Bld) [#/Vol] 9.2 10*3/uL Normal 4.4-11.0 [facility] Comment on above: Performed By: #### L 100.0100, [id number] #### [facility] [address] [place], [address] Comprehensive Metabolic Prof [facility] 04-16-2025 Albumin [Mass/Vol] 4.3 g/dL Normal 3.4-4.8 [facility] Comment on above: Performed By: #### L 100.0100, [id number] #### [facility] [address] [place], [address] Albumin/Globulin [Mass ratio] 1.7 {ratio} Normal 0.9-2.4 [facility] Comment on above: Performed By: #### L 100.0100, [id number] #### [facility] [address] [place], [address] ALK PHOS 93 U/L Normal 40-129 [facility] Comment on above: Performed By: #### L 100.0100, [id number] #### [facility] [address] [place], [address] ALT [Catalytic activity/Vol] 20 U/L Normal <=46 [facility] Comment on above: Performed By: #### L 100.0100, [id number] #### [facility] [address] [place], [address] AST [Catalytic activity/Vol] 28 U/L Normal <=37 [facility] Comment on above: Performed By: #### L 100.0100, [id number] #### [facility] [address] [place], [address] Bilirubin [Mass/Vol] 0.38 mg/dL Normal 0.00-1.30 [facility] Comment on above: Performed By: #### L 100.0100, [id number] #### [facility] [address] [place], [address] BUN/CRE 18.4 RATIO Normal 10-20 [facility] Comment on above: Performed By: #### L 100.0100, [id number] #### [facility] [address] [place], [address] Calcium [Mass/Vol] 9.5 mg/dL Normal 7.6-11.0 [facility] Comment on above: Performed By: #### L 100.0100, [id number] #### [facility] [address] [place], [address] Chloride [Moles/Vol] 103 mmol/L Normal 98-108 [facility] Comment on above: Performed By: #### L 100.0100, [id number] #### [facility] [address] [place], [address] CO2 [Moles/Vol] 26.2 mmol/L Normal 21.0-32.0 [facility] Comment on above: Performed By: #### L 100.0100, L500.4050 #### [facility] [address] [place], [address] Creatinine [Mass/Vol] 1.00 mg/dL Normal 0.70-1.20 [facility] Comment on above: Performed By: #### L 100.0100, L500.4050 #### [facility] [address] [place], [address] GAP 12 Normal 5-15 [facility] Comment on above: Performed By: #### L 100.0100, L500.4050 #### [facility] [address] [place], [address] GFR/1.73 sq M.predicted among non-blacks MDRD (S/P/Bld) [Vol rate/Area] 77 mL/min/{1.73_m2} Normal >60 [facility] Comment on above: Result Comment: mL/m in/1.73m2 CKD-EPI Creatinine Equation (2020) Performed By: #### L 100.0100, L500.4050 #### [facility] [address] [place], [address] Globulin (S) [Mass/Vol] 2.6 g/dL Normal 2.2-4.2 [facility] Comment on above: Performed By: #### L 100.0100, L500.4050 #### [facility] [address] [place], [address] Glucose [Mass/Vol] 113 mg/dL High 70-99 [facility] Comment on above: Performed By: #### L 100.0100, L500.4050 #### [facility] [address] [place], [address] Potassium [Moles/Vol] 4.5 mmol/L Normal 3.3-5.1 [facility] Comment on above: Performed By: #### L 100.0100, [id number] #### [facility] [address] [place], [address] Sodium [Moles/Vol] 140 mmol/L Normal 133-145 [facility] Comment on above: Performed By: #### L 100.0100, [id number] #### [facility] [address] [place], [address] T PROT 6.9 g/dL Normal 5.9-8.4 [facility] Comment on above: Performed By: #### L 100.0100, [id number] #### [facility] [address] [place], [address] Urea nitrogen [Mass/Vol] 18 mg/dL Normal 4-19 [facility] Comment on above: Performed By: #### L 100.0100, L500.4050 #### [facility] [address] [place], [address] CNOVon 04-09-2025 [facility] GORAN GABRIEL ([id number]) 1945 M Date Time Provider Department 04/09/25 5:40 PM [facility] During your visit today, we recorded the following information about you: Pulse Blood pressure Weight Height 81/minute 124/68 103.4 kg 1.685 m Miguelangel Courtney MD 04/09/2025 6:43 PM Signed Goranmichi Gabriel is a 79 year old male here for a Medicare wellness visit. Medicare Health Risk Assessment General Health Very good Exercise: Minutes/Day 60 min Exercise: Days/Week 4 days Alcohol: Daily Use Never Alcohol: Drinks/Day Patient does not drink Alcohol: 6 or more drinks Never Feel off balance No Concerns: Teeth/Dentures No Concerns: Sexual function No Troubled by feelings None of the above Frequency: Eating healthy diet Nearly every day ADLs requiring help None of the above Safety precautions in home/vehicle Yes Smoke, vape, chews tobacco No Difficulty hearing Yes Difficulty seeing No Current Providers Specialists: I have reviewed specialist-related care of the patient in the medical record. Current care team: Patient Care Team: Miguelangel Courtney MD as PCP - General (Family Medicine) Uzma Hanley, ÁLVARO.TRAIN ANNOUNCER as Director Video (Family Medicine) Willow Marcelo ON AIR PERSONALITY.TRAIN ANNOUNCER as Director Video (Family Medicine) Dr Chavez, optometry. [facility], optho Dr Pittman, rheumatology. Dr Cerrato, nephrology Dr Veliz, urology/Stephon Negron urology Dr Soto, pulmonary Dr Oreilly, cardiology. 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 Medical/Family history review Reviewed and updated problem list, medical/surgical/family/so cial history, medications, and allergies. Opioid use review Opioid Medications (last 90 days) No data to display Anxiety/Depression screening PHQ-2 Score: 0 YOSVANY-7 Score: 0. Recommendation: no further intervention at this time Cognitive screening Mini Cog Score: 4 Cognitive screening reviewed and No further action needed (score 3-5). Functional Observation Was the patient's Timed Up AND Go test unsteady or >= 12 seconds? No Advance Care Planning Surrogate decision maker and/or advance care plan documented Measurements BP 124/68 Pulse 81 Ht 168.5 cm (5' 6.34) Wt 103.4 kg (228 lb) SpO2 94% BMI 36.43 kg/m? Vision Screening: Follows with optometry/ophthalmology ADDITIONAL INFO: Annual Wellness Exam: - General health is very good. - Exercises by walking for about an hour a day, 4 days a week. - Not a smoker, vaper, or tobacco chewer. - Not a drinker. - Balance is good. - No issues with teeth, dentures, or sexual dysfunction. - No concerns with mood or feelings. - ADLs are independent; follows safety precautions at home. - Has a medical living will; daughter is the medical decision-maker. - Received shingles vaccine series 2 years ago at [facility]. - Plans to get a flu shot tonight. - No issues with urination or bowel movements; denies hematochezia or melena. - No swelling noted. - No opioid pain medication use. - No issues with hearing; hearing aids are 4 years old and need updating. - Vision is good; recent eye exam revealed developing cataracts. - Sees Dr. Fagan for eye checks and has an upcoming appointment at the [facility] [facility]. - Sees Dr. Ball for dermatology. 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 - Sees Dr. Oreilly for cardiology. - Sees Dr. Soto for pulmonology; has an upcoming appointment in 2 weeks. - Sees Dr. Cerrato for nephrology. - Sees Dr. Veliz and DIANNE Collazo, for urology. - Sees Dr. Pittman for rheumatology; has an appointment next month. - Recent weight loss of 18 lbs since early winter of last year; attributes to dietary changes, including eating more salads and meat. - Denies any issues with back pain. Inflammatory Arthritis: - Managed with Plaquenil and Prednisone PRN. - Recent flare-up in the hand, causing difficulty making a fist; pain has now moved to the hip. - Most days, the condition is tolerable. - No obvious deformity in the hands. Pulmonary Concerns: - Breathing issues, particularly when walking uphill; tires easily. - Dr. Soto ordered a sleep study, scheduled for tonight. - Dr. Soto mentioned that one lung is not getting the full volume of air it should. - Experiences a cough in the morning, described as clearing the pipes. CKD: - Born with one kidney; kidney function is reportedly normal. - Sees Dr. Cerrato for nephrology. - Taking Flomax to help with kidney function. CAD: - Recent stent placement; no change in breathing issues post-procedure. - Taking Brilinta for the stent. - Taking Lipitor for cholesterol management. - Taking hydrochlorothiazide, losartan, and metoprolol for blood pressure management. 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 ROS: Ears/Nose/Mouth/Throat: (-) dental problems Cardiovas (more content not included)... [facility] GORAN GABRIEL ([id number]) 1945 M Date Time Provider Department 03/16/25 DEIDRE SOTO [facility] During your visit today, we recorded the following information about you: Deidre Soto MD 03/16/2025 2:47 PM Signed Spoke to patient. Sniff test negative for paralysis. Has eventration of diaphragm. Overnight oximetry shows desaturations with pattern suggestive of sleep apnea. Will order HSAT. Allergies As of Date: 03/16/2025 Noted Allergy Reaction SIMVASTATIN 04/23/2016 5 - Intolerance Comments: myalgias Date Reviewed: 03/13/2025 Reviewed by: Priscilla Rangel LPN - Fully Assessed Reason for Visit: Results [95] Cmt: Sniff test and oximetry Primary Visit Diagnosis:Nocturnal hypoxemia [G47.34] Order(s):HOME SLEEP APNEA TEST (HSAT) [2959350] Order #: [id number] FUTURE Prescriptions as of 03/16/2025 - albuterol HFA (PROVENTIL HFA, VENTOLIN HFA) 90 mcg/actuation inhaler Inhale 2 puffs as instructed every 4 hours as needed. - hydroCHLOROthiazide 25 mg tablet Take 1 tablet by mouth once daily. - ticagrelor (BRILINTA) 90 mg tablet Take 1 tablet by mouth two times a day. - fluticasone (FLONASE) 50 mcg/actuation nasal spray Use 1 spray in each nostril once daily. Rinse mouth after use. - Aspirin 81 mg tab Take 81 mg by mouth one time only. Pre cath - metoprolol succinate ER (TOPROL XL) 25 mg 24 hr tablet Take 2 tablets by mouth once daily. - iv contrast (will be provided with radiology test) CTA ABD/PEL - No IV access, insert saline lock prior to the sedation, infusion, injection for imaging exam. Discontinue saline lock post exam. If Pt. has a central line or IVAD, may access for administration according to line specific nursing protocol. Once exam is complete flush line and de-access according to line specific nursing protocol in the CT contrast administration guidelines link. - atorvastatin (LIPITOR) 20 mg tablet Take 1 tablet by mouth once daily. - losartan (COZAAR) 100 mg tablet Take 1 tablet by mouth once daily. - tamsulosin (FLOMAX) 0.4 mg Take 1 capsule by mouth daily at bedtime. - predniSONE (DELTASONE) 10 mg tablet Take 10 mg by mouth as needed. - hydroxychloroquine (PLAQUENIL) 200 mg tablet Take 200 mg by mouth two times a day. 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] 05/21/2012 L-S radiculopathy [M54.17] 05/21/2012 05/14/2022 Left knee sprain [S83.92XA] 12/09/2012 09/26/2014 Abnormal glucose [R73.09] 02/13/2013 10/30/2020 Sciatica [M54.30] 02/13/2013 10/29/2016 Obesity [E66.9] 02/13/2013 05/14/2022 Lumbar stenosis [M48.061] 09/26/2014 Aortic valve stenosis [I35.0] 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, M19.*02/24/2017 10/30/2020 Left hip pain [M25.552] 02/24/2017 01/16/2019 Cellulitis of right hand [L03.113] 11/28/2018 12/01/2018 Neck pain [M54.2] 11/28/2018 01/16/2019 Acute deep vein thrombosis (DVT) of femoral vei*01/13/2019 10/30/2020 Acute deep vein thrombosis (DVT) of distal end *01/16/2019 02/17/2019 Varicose veins of both legs with edema [I83.893]01/16/2019 Screening for ischemic heart disease [Z13.6] 01/16/2019 05/14/2022 History of cellulitis [Z87.2] 01/16/2019 05/07/2021 Other proteinuria [R80.8] 07/21/2019 Prediabetes [R73.03] 05/07/2021 Inflammatory polyarthritis (HCC) [M06.4] 05/07/2021 Obesity, Class II, BMI 35-39.9 [E66.812] 08/04/2021 Aortic valve disorder [I35.9] 08/04/2021 05/14/2022 Cellulitis of foot [L03.119] 11/11/2022 05/26/2023 Hypertension [I10] 05/26/2023 05/26/2023 Diagnosed: 05/26/2023 Right inguinal pain [R10.31] 05/26/2023 05/26/2023 Diagnosed: 05/26/2023 Postsurgical percutaneous transluminal coronary*12/26/2024 Coronary artery disease involving capitan grande patrick*12/26/2024 S/P angioplasty with stent [Z95.820] 01/10/2025 Encounter Status:Closed by DEIDRE SOTO on 03/16/25 [facility] CNOVdimple 03-13-2025 [facility] Office Visit ([facility] ) -- GORAN GABRIEL ([id number]) 1945 M Date Time Provider Department 03/13/25 8:00 AM UZMA HANLEY During your visit today, we recorded the following information about you: Pulse Blood pressure Weight 66/minute 128/72 104.3 kg Uzma Hanley APRN.TRAIN ANNOUNCER 03/13/2025 8:11 AM Signed - Continue your metoprolol as you have been taking it: two tablets each morning. - Keep checking your blood pressure at home. - Attend your brp-xz-tlems physical appointment with Dr. Courtney as scheduled. - Complete the sniff test at [place] today, as ordered by Dr. Soto. Uzma Hanley APRN.TRAIN ANNOUNCER 03/13/2025 5:33 PM Signed This is a 79 year old male who presents today with: The patient is a 79-year-old male with HTN, presenting for evaluation of blood pressure control. HISTORY OF PRESENT ILLNESS: Hypertension: Was unsure if he was taking 25 mg or 50 mg at last office visit. - He was only taking 25 mg (was ordered 50 mg). - Goran denies side effects from metoprolol. - Home BP readings: 120s-130s systolic. - No recent episodes of dizziness. - Follow-up with Dr. Courtney scheduled for the end of the month. PAST MEDICAL HISTORY: PAST MEDICAL HISTORY Diagnosis Date Aortic stenosis mild BPH associated with nocturia CAD (coronary artery disease) S/p stent Hyperglycemia Hyperlipidemia Hypertension IMPOTENCE, ORGANIC ORIGN Kidney congenitally absent, right L-S radiculopathy right leg, Stenosis on lumbar MRI Obesity Personal history of colonic polyps PAST SURGICAL HISTORY Procedure Laterality Date APPENDECTOMY COLONOSCOPY 10/05/2018 COLONOSCOPY FLX DX W/COLLJ SPEC WHEN PFRMD 09/05/2013 normal colon - prior polyps 5 year follow up COLSC FLX W/RMVL OF TUMOR POLYP LESION SNARE TQ 01/20/2005 COLSC FLX W/RMVL OF TUMOR POLYP LESION SNARE TQ 06/13/2010 polyps cecum and 45cm, tubular adenomas PAST SURGICAL HISTORY OF 12/25/2024 INSERT INTRACORONARY STENT-PER MAJOR VESSEL OR BRANCH RPR 1ST INGUN HRNA AGE 5 YRS/> REDUCIBLE Hernia repair, inguinal bilateral RX RIB FRACTURE W BARREL DRUM CUTTER FIXATN TONSILLECTOMY PRIMARY/SECONDARY Tonsillectomy ALLERGIES Simvastatin MEDICATIONS Current Outpatient Medications Medication Sig albuterol HFA (PROVENTIL HFA, VENTOLIN HFA) 90 mcg/actuation inhaler Inhale 2 puffs as instructed every 4 hours as needed. hydroCHLOROthiazide 25 mg tablet Take 1 tablet by mouth once daily. ticagrelor (BRILINTA) 90 mg tablet Take 1 tablet by mouth two times a day. fluticasone (FLONASE) 50 mcg/actuation nasal spray Use 1 spray in each nostril once daily. Rinse mouth after use. Aspirin 81 mg tab Take 81 mg by mouth one time only. Pre cath metoprolol succinate ER (TOPROL XL) 25 mg 24 hr tablet Take 2 tablets by mouth once daily. iv contrast (will be provided with radiology test) CTA ABD/PEL - No IV access, insert saline lock prior to the sedation, infusion, injection for imaging exam. Discontinue saline lock post exam. If Pt. has a central line or IVAD, may access for administration according to line specific nursing protocol. Once exam is complete flush line and de-access according to line specific nursing protocol in the CT contrast administration guidelines link. atorvastatin (LIPITOR) 20 mg tablet Take 1 tablet by mouth once daily. losartan (COZAAR) 100 mg tablet Take 1 tablet by mouth once daily. tamsulosin (FLOMAX) 0.4 mg Take 1 capsule by mouth daily at bedtime. predniSONE (DELTASONE) 10 mg tablet Take 10 mg by mouth as needed. hydroxychloroquine (PLAQUENIL) 200 mg tablet Take 200 mg by mouth two times a day. No current facility-administered medications for this visit. FAMILY HISTORY Problem Relation Age of Onset Diabetes Father SOCIAL HISTORY[1] REVIEW OF SYSTEMS Constitutional: (+) exertional fatigue Cardiovascular: (+) peripheral edema EXAM: BP 128/72 Pulse 66 Wt 104.3 kg (230 lb) SpO2 95% BMI 38.27 kg/m? PHYSICAL EXAM: General Appearance: Well appearing, alert, in no acute distress, well-hydrated, well nourished.. Skin: Skin color, texture, turgor normal, no suspicious rashes or lesions. Head: Normocephalic, no masses, lesions, tenderness or abnormalities. Eyes: Anicteric sclera. Extraocular movements are intact. . Neck: Supple, no adenopathy; thyroid symmetric, normal size, no bruits. Lungs: Lungs clear to auscultation. No wheezing, rhonchi, rales.. Heart: RRR without murmur, gallop, or rubs. No ectopy. Extremities: No deformities, edema, skin discoloration, clubbing or cyanosis. Good capillary refill. . Neurologic: Gait normal. ASSESSMENT/PLAN 1. Essential (primary) hypertension (I10) - Blood pressure well-controlled on toprol 50 mg daily, with home readings typically in the 120s-130s mmHg. - Continue metoprolol BID as currently prescribed. - Follow-up at the end of the month with Dr. Courtney for physical exam. Dis (more content not included)... Normal [facility] GI FLUORO CHEST SNIFF TESTon 03-13-2025 GI FLUORO CHEST SNIFF TEST * * *Final Report* * * DATE OF EXAM: Mar 13 2025 2:14PM MDX 5536 - GI FLUORO CHEST SNIFF TEST / PROCEDURE REASON: J98.6-Elevated diaphragm * * * * Physician Interpretation * * * * EXAM TITLE: GI FLUORO CHEST SNIFF TEST HISTORY: Elevated diaphragm TECHNIQUE: Fluoroscopic observation of diaphragm during respiratory cycle and forced inspiratory (sniff) maneuvers. Fluoroscopy time = 1:12 (minutes:seconds). FINDINGS: Eventration of the right hemidiaphragm is noted. Excursion of right hemidiaphragm appears diminished compared to its left side counterpart. The downward motion during inspiration and upward motion during expiration of the right hemidiaphragm are both decreased. IMPRESSION: Decreased excursion of the right hemidiaphragm, without convincing evidence of paralysis. Health And Safety Inspector: JUSTIN Transcribe Date/Time: Mar 14 2025 10:55A Dictated by : BRIAN RUIZ MD This examination was interpreted and the report reviewed and electronically signed by: BRIAN RUIZ MD on Mar 14 2025 11:17AM EST [id number] [facility] ([facility] ) -- GORAN GABRIEL ([id number]) 1945 M Date Time Provider Department 02/15/25 11:00 AM DEIDRE SOTO PULMWS During your visit today, we recorded the following information about you: Pulse Blood pressure Weight 75/minute 136/79 104.3 kg Deidre Soto MD 02/15/2025 12:43 PM Signed . Respiratory Fontana Note Patient name: Goran Gabriel PCP: Miguelangel Courtney MD Referring Physician: Recording using [employer] software for draft documentation of the visit was discussed with the patient/authorized credit representative; all questions welcomed and answered. Patient/authorized credit representative agreed to proceed Consultation requested by Dr. Courtney for an opinion regarding SOB. My final recommendations will be communicated back to the requesting physician by way of shared Medical record or letter to requesting physician via US mail. CC: Shortness of breath HPI: Goran Gabriel 79 year old male never smoker with PMH significant for class II obesity, aortic stenosis, HLD, HTN, single kidney (congenital absence), CAD s/p stent in December now on Brilinta being referred for evaluation of shortness of breath. Review of recent imaging shows an elevated right hemidiaphragm that has been present since at least 2014. Goran reports chronic dyspnea, which he describes as a sensation of something on my chest. The dyspnea is exacerbated by high humidity and bending over while working outside, but is alleviated by breathing easily, staying inside, or staying in the shade. Dyspnea has been present for years and not progressive in nature. Recent history is notable for CAD s/p stent and he is currently taking Brilinta. He denies worsening of his shortness of breath since starting the Brilinta. He denies wheezing, orthopnea, or dyspnea triggered by strong odors or fumes. His reports that he struggles to breath at night, breathes noisily but no snoring. At times she is concerned that he is not breathing at all. He has a daily morning cough with clear phlegm, which resolves quickly. He also experiences sneezing, particularly when outside during this time of year, but denies any other seasonal allergy symptoms. He is currently using Flonase nasal spray. No history of asthma. Review of chest imaging shows a chronic elevated right diaphragm and previous PFTs show restriction as well. He was wondering if chest trauma could cause his diaphragm issue. Apparently had a significant fall in 2018 resulting in multiple right rib fractures. DATA: PFT 01/2025: Function test show moderate restriction and small airways obstruction PFT 2020: Imaging / Diagnostic Studies: DATE OF EXAM: Nov 14 2024 8:38AM [facility] 0126 - CTA CHEST (GATED) WO/W IVCON / PROCEDURE REASON: Encounter for preprocedural cardiovascular examination IMPRESSION: 1. Trileaflet aortic valve , with mild calcific aortic stenosis. The aortic valve calcium score is calculated at 2188 Agatston units. 2. Aortic annular measurements are as follows: diameter: 3.0 x 2.4 cm, mean diameter 2.6 cm, circumference: 8.5 cm, cross-sectional area: 513 mm2 3. Dilated thoracic and normal abdominal aorta. The maximum thoracic aortic dimension is recorded at the level of the sinuses of Valsalva (4.3 cm measured sinus to sinus). No acute aortic pathology. 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 There is a 50% origin stenosis of the right subclavian artery origin and left vertebral artery origin 4. The pelvic arteries, including the common femoral arteries are normal in course, caliber, and contour. The minimal luminal caliber throughout = 0.9 cm. 5. The cardiovascular structures lie a safe distance from the sternum (>1 cm), as scribed above. 6. There is an elevated hemidiaphragm with compression of right middle lobe and right lower lobe lung parenchyma with atelectasis and volume loss. The hepatic flexure the colon insinuates itself between the liver and elevated hemidiaphragm. The liver is twisted on its axis. There is an absent right kidney. There is minimal sigmoid diverticulosis without evidence of diverticulitis. There is a 25 mm nodule adjacent to the posterior left aspect of the prostate either representing prostate tissue or seminal vesicle tissue. Clinical correlation to PSA levels and rectal exam may be warranted. The cardiac portion of the study was interpreted by Dr. Moises Martinez from the Cardiology Department, and the noncardiac portion was interpreted by Dr. Brayan Alonzo from Radiology I personally reviewed the images which shows elevated right hemidiaphragm with compressive atelectasis. No other lung abnormality CXR 05/2023: Chest x-ray shows marked elevation of the right hemidiaphragm PAST MEDICAL HISTORY Diagnosis (more content not included)... Normal [facility] Anion gap in Serum or Plasma Ordered By: Raissa Cerrato on 02-07-2025 Anion gap [Moles/Vol] 13 mmol/L 5- [facility] BUN/creatinine ratioOrdered By: Raissa Cerrato on 02-07-2025 Urea nitrogen/Creatinine [Mass ratio] 19.1 mg/mg 10- [facility] CNOVon 02-07-2025 [facility] Office Visit ([facility] ) -- GORAN GABRIEL ([id number]) 1945 M Date Time Provider Department 02/07/25 8:00 AM UZMA HANLEY During your visit today, we recorded the following information about you: Pulse Respiration Blood pressure Weight 87/minute 16/minute 132/78 104.4 kg Height 1.651 m Uzma Hanley APRN.TRAIN ANNOUNCER 02/07/2025 8:20 AM Signed - Verify your metoprolol dose -- send me a message/call when you get home. . - Measure your blood pressure immediately upon getting up, and note both the reading and any dizziness you experience. - Continue to drink plenty of water to stay well hydrated. Uzma Hanley APRN.TRAIN ANNOUNCER 02/07/2025 10:27 PM Signed This is a 79 year old male who presents today with: Goran Gabriel is a 79-year-old male with a history of HTN, presenting for management of blood pressure and associated dizziness. HISTORY OF PRESENT ILLNESS: Hypertension: - Home blood pressure readings range from 113-140 mmHg. - Taking hydrochlorothiazide, losartan, and metoprolol. - Uncertain about taking rwo metoprolol daily. - Recent stent placement; taking Brilinta BID. - Denies current hematuria. - Drinking adequate water. Dizziness: - Occurs in the morning upon getting up, before taking medications. - Episodes are brief and resolve with movement. PAST MEDICAL HISTORY: PAST MEDICAL HISTORY Diagnosis Date Aortic stenosis mild BPH associated with nocturia Hyperglycemia Hyperlipidemia Hypertension IMPOTENCE, ORGANIC ORIGN Kidney congenitally absent, right L-S radiculopathy right leg, Stenosis on lumbar MRI Obesity Personal history of colonic polyps PAST SURGICAL HISTORY Procedure Laterality Date APPENDECTOMY COLONOSCOPY 10/05/2018 COLONOSCOPY FLX DX W/COLLJ SPEC WHEN PFRMD 09/05/13 normal colon - prior polyps 5 year follow up COLSC FLX W/RMVL OF TUMOR POLYP LESION SNARE TQ 01/20/2005 COLSC FLX W/RMVL OF TUMOR POLYP LESION SNARE TQ 06/13/10 polyps cecum and 45cm, tubular adenomas RPR 1ST INGUN HRNA AGE 5 YRS/> REDUCIBLE Hernia repair, inguinal bilateral RX RIB FRACTURE W BARREL DRUM CUTTER FIXATN TONSILLECTOMY PRIMARY/SECONDARY Tonsillectomy ALLERGIES Simvastatin MEDICATIONS Current Outpatient Medications Medication Sig hydroCHLOROthiazide 25 mg tablet Take 1 tablet by mouth once daily. ticagrelor (BRILINTA) 90 mg tablet Take 1 tablet by mouth two times a day. fluticasone (FLONASE) 50 mcg/actuation nasal spray Use 1 spray in each nostril once daily. Rinse mouth after use. Aspirin 81 mg tab Take 81 mg by mouth one time only. Pre cath metoprolol succinate ER (TOPROL XL) 25 mg 24 hr tablet Take 2 tablets by mouth once daily. iv contrast (will be provided with radiology test) CTA ABD/PEL - No IV access, insert saline lock prior to the sedation, infusion, injection for imaging exam. Discontinue saline lock post exam. If Pt. has a central line or IVAD, may access for administration according to line specific nursing protocol. Once exam is complete flush line and de-access according to line specific nursing protocol in the CT contrast administration guidelines link. atorvastatin (LIPITOR) 20 mg tablet Take 1 tablet by mouth once daily. losartan (COZAAR) 100 mg tablet Take 1 tablet by mouth once daily. tamsulosin (FLOMAX) 0.4 mg Take 1 capsule by mouth daily at bedtime. predniSONE (DELTASONE) 10 mg tablet Take 10 mg by mouth as needed. hydroxychloroquine (PLAQUENIL) 200 mg tablet Take 200 mg by mouth two times a day. No current facility-administered medications for this visit. FAMILY HISTORY Problem Relation Age of Onset Diabetes Father Social History Tobacco Use Smoking status: Never Smokeless tobacco: Never Vaping Use Vaping status: Never Used Substance Use Topics Alcohol use: Not Currently Drug use: Never REVIEW OF SYSTEMS Genitourinary: (-) hematuria Skin: (+) bruising Neurological: (+) dizziness EXAM: BP 132/78 Pulse 87 Resp 16 Ht 165.1 cm (5' 5) Wt 104.4 kg (230 lb 3.2 oz) SpO2 96% BMI 38.31 kg/m? PHYSICAL EXAM: General Appearance: Well appearing, alert, in no acute distress, well-hydrated, well nourished.. Skin: Skin color, texture, turgor normal, no suspicious rashes or lesions. Head: Normocephalic, no masses, lesions, tenderness or abnormalities. Eyes: Anicteric sclera. Extraocular movements are intact. . Lungs: Lungs clear to auscultation. No wheezing, rhonchi, rales.. Heart: RRR without murmur, gallop, or rubs. No ectopy. Neurologic: Gait normal. ASSESSMENT/PLAN 1. Essential (primary) hypertension (I10) - Home BP readings mostly 113-130 mmHg, with one reading in the 140s. - Currently taking hydrochlorothiazide, losartan, and metoprolol; unsure if he is taking one or two metoprolol daily. - Instructed patient to confirm current metoprolol regimen at home and report back. - Clarified metoprolol 25 mg tablets (more content not included)... Normal [facility] 02-07-2025 [facility] Telephone (SUDEEPWS) -- GORAN GABRIEL ([id number]) 1945 M Date Time Provider Department 02/07/25 [facility] During your visit today, we recorded the following information about you: Tom Cook RN 02/07/2025 10:22 AM Signed Patient calls to let provider know that he is currently only taking one metoprolol ER 25 mg tablets. He reports the first two weeks after he had his stents placed he was doing the two a day but when he filled his pills the third week, he went back to only once a day as he had been taking previously. Patient reports he will wait to hear from provider before resuming the two a day. SCOTT Moon Christy, APRN.[facility] 02/07/2025 5:05 PM Signed Lets have him go ahead and resume the two pills daily. Let's have him follow-up in another month to recheck his blood pressure. Uzma Hanley APRN.Tom Hamilton RN 02/08/2025 10:10 AM Signed Call placed to patient and notified of below with verbalized understanding. Scheduled 1 month BP recheck for 03/13/2025. Tom Cook RN Allergies As of Date: 02/07/2025 Noted Allergy Reaction SIMVASTATIN 04/23/2016 5 - Intolerance Comments: myalgias Date Reviewed: 02/07/2025 Reviewed by: Genevieve Tiwari LPN - Fully Assessed Reason for Visit: Patient Update [1234] Prescriptions as of 02/08/2025 - hydroCHLOROthiazide 25 mg tablet Take 1 tablet by mouth once daily. - ticagrelor (BRILINTA) 90 mg tablet Take 1 tablet by mouth two times a day. - fluticasone (FLONASE) 50 mcg/actuation nasal spray Use 1 spray in each nostril once daily. Rinse mouth after use. - Aspirin 81 mg tab Take 81 mg by mouth one time only. Pre cath - metoprolol succinate ER (TOPROL XL) 25 mg 24 hr tablet Take 2 tablets by mouth once daily. - iv contrast (will be provided with radiology test) CTA ABD/PEL - No IV access, insert saline lock prior to the sedation, infusion, injection for imaging exam. Discontinue saline lock post exam. If Pt. has a central line or IVAD, may access for administration according to line specific nursing protocol. Once exam is complete flush line and de-access according to line specific nursing protocol in the CT contrast administration guidelines link. - atorvastatin (LIPITOR) 20 mg tablet Take 1 tablet by mouth once daily. - losartan (COZAAR) 100 mg tablet Take 1 tablet by mouth once daily. - tamsulosin (FLOMAX) 0.4 mg Take 1 capsule by mouth daily at bedtime. - predniSONE (DELTASONE) 10 mg tablet Take 10 mg by mouth as needed. - hydroxychloroquine (PLAQUENIL) 200 mg tablet Take 200 mg by mouth two times a day. 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] 05/21/2012 L-S radiculopathy [M54.17] 05/21/2012 05/14/2022 Left knee sprain [S83.92XA] 12/09/2012 09/26/2014 Abnormal glucose [R73.09] 02/13/2013 10/30/2020 Sciatica [M54.30] 02/13/2013 10/29/2016 Obesity [E66.9] 02/13/2013 05/14/2022 Lumbar stenosis [M48.061] 09/26/2014 Aortic valve stenosis [I35.0] 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, M19.*02/24/2017 10/30/2020 Left hip pain [M25.552] 02/24/2017 01/16/2019 Cellulitis of right hand [L03.113] 11/28/2018 12/01/2018 Neck pain [M54.2] 11/28/2018 01/16/2019 Acute deep vein thrombosis (DVT) of femoral vei*01/13/2019 10/30/2020 Acute deep vein thrombosis (DVT) of distal end *01/16/2019 02/17/2019 Varicose veins of both legs with edema [I83.893]01/16/2019 Screening for ischemic heart disease [Z13.6] 01/16/2019 05/14/2022 History of cellulitis [Z87.2] 01/16/2019 05/07/2021 Other proteinuria [R80.8] 07/21/2019 Prediabetes [R73.03] 05/07/2021 Inflammatory polyarthritis (HCC) [M06.4] 05/07/2021 Obesity, Class II, BMI 35-39.9 [E66.812] 08/04/2021 Aortic valve disorder [I35.9] 08/04/2021 05/14/2022 Cellulitis of foot [L03.119] 11/11/2022 05/26/2023 Hypertension [I10] 05/26/2023 05/26/2023 Diagnosed: 05/26/2023 Right inguinal pain [R10.31] 05/26/2023 05/26/2023 Diagnosed: 05/26/2023 Postsurgical percutaneous transluminal coronary*12/26/2024 Coronary artery disease involving capitan grande patrick*12/26/2024 S/P angioplasty with stent [Z95.820] 01/10/2025 Encounter Status:Closed by TOM COOK on 02/08/25 Normal [facility] Carbon dioxide, total [Moles /volume] in Central venous bloodOrdered By: Raissa Cerrato on 02-07-2025 CO2 [Moles/Vol] 25.6 mmol/L 21.0-32.0 [facility] Chloride assayOrdered By: Camilo Cerrato on 02-07-2025 Chloride [Moles/Vol] 102 mmol/L 98-108 [facility] Glomerular filtration rate ( GFR) estimation/1.73 sq m using serum, plasma, or whole bOrdered By: Raissa Cerrato on 02-07-2025 GFR/1.73 sq M.predicted among non-blacks MDRD (S/P/Bld) [Vol rate/Area] 70 mL/min/{1.73_m2} >60 [facility] Comment on above: mL/min/1.73m2 CKD-EP I Creatinine Equation (2020) Potassium measurement (mass/ volume)Ordered By: Raissa Cerrato on 02-07-2025 Potassium (Unsp spec) [Mass/Vol] 4.5 mmol/L 3.3-5.1 [facility] Protein+Creatinine Ratio,Uri neon 02-07-2025 PROT:CRE RATIO 134 mg/g CRE Normal 0-200 [facility] Comment on above: Performed By: #### L 501.0900, L501.1400, L500.3600 #### [facility] [address] [place], [address] Protein (U) [Mass/Vol] 10.3 mg/dL Normal 0.0-12.0 [facility] Comment on above: Performed By: #### L 501.0900, L501.1400, L500.3600 #### [facility] [address] [place], [address] UR CREAT 77.10 mg/dL Normal 39.00-259.0 0 [facility] Comment on above: Performed By: #### L 501.0900, L501.1400, L500.3600 #### [facility] [address] [place], [address] Random urine creatinine oziel urement (mass/volume)Ordered By: Raissa Cerrato on 02-07-2025 Creatinine Unsp time (U) [Mass/Vol] 77.10 mg/dL 39.00-259.0 0 [facility] Renal Profileon 02-07-2025 Albumin [Mass/Vol] 4.5 g/dL Normal 3.4-4.8 [facility] Comment on above: Performed By: #### L 501.0900, L501.1400, L500.3600 #### [facility] [address] [place], [address] BUN/CRE 19.1 RATIO Normal 10-20 [facility] Comment on above: Performed By: #### L 501.0900, L501.1400, L500.3600 #### [facility] [address] [place], [address] Calcium [Mass/Vol] 9.7 mg/dL Normal 7.6-11.0 [facility] Comment on above: Performed By: #### L 501.0900, L501.1400, L500.3600 #### [facility] [address] [place], [address] Chloride [Moles/Vol] 102 mmol/L Normal 98-108 [facility] Comment on above: Performed By: #### L 501.0900, L501.1400, L500.3600 #### [facility] [address] [place], [address] CO2 [Moles/Vol] 25.6 mmol/L Normal 21.0-32.0 [facility] Comment on above: Performed By: #### L 501.0900, L501.1400, L500.3600 #### [facility] [address] [place], [address] Creatinine [Mass/Vol] 1.08 mg/dL Normal 0.70-1.20 [facility] Comment on above: Performed By: #### L 501.0900, L501.1400, L500.3600 #### [facility] [address] [place], [address] GAP 13 Normal 5-15 [facility] Comment on above: Performed By: #### L 501.0900, L501.1400, L500.3600 #### [facility] [address] [place], [address] GFR/1.73 sq M.predicted among non-blacks MDRD (S/P/Bld) [Vol rate/Area] 70 mL/min/{1.73_m2} Normal >60 [facility] Comment on above: Result Comment: mL/m in/1.73m2 CKD-EPI Creatinine Equation (2020) Performed By: #### L 501.0900, L501.1400, L500.3600 #### [facility] [address] [place], [address] Glucose [Mass/Vol] 116 mg/dL High 70-99 [facility] Comment on above: Performed By: #### L 501.0900, L501.1400, L500.3600 #### [facility] [address] [place], [address] Phosphate [Mass/Vol] 3.7 mg/dL Normal 2.7-4.5 [facility] Comment on above: Performed By: #### L 501.0900, L501.1400, L500.3600 #### [facility] [address] [place], [address] Potassium [Moles/Vol] 4.5 mmol/L Normal 3.3-5.1 [facility] Comment on above: Performed By: #### L 501.0900, L501.1400, L500.3600 #### [facility] [address] [place], [address] Sodium [Moles/Vol] 140 mmol/L Normal 133-145 [facility] Comment on above: Performed By: #### L 501.0900, L501.1400, L500.3600 #### [facility] [address] [place], [address] Urea nitrogen [Mass/Vol] 21 mg/dL High 10-28 [facility] Comment on above: Performed By: #### L 501.0900, L501.1400, L500.3600 #### [facility] [address] [place], [address] Serum creatinine measurement (mass/volume)Ordered By: Raissa Cerrato on 02-07-2025 Creatinine [Mass/Vol] 1.08 mg/dL 0.70-1.20 [facility] Serum glucose measurement (m ass/volume)Ordered By: Raissa Cerrato on 02-07-2025 Glucose [Mass/Vol] 116 mg/dL High 70-99 [facility] Serum or plasma albumin oziel urement (mass/volume)Ordered By: Raissa Cerrato on 02-07-2025 Albumin [Mass/Vol] 4.5 g/dL 3.4-4.8 [facility] Serum or plasma calcium oziel urement (mass/volume)Ordered By: Raissa Cerrato on 02-07-2025 Calcium [Mass/Vol] 9.7 mg/dL 7.6-11.0 [facility] Serum or plasma urea nitroge n measurement (mass/volume)Ordered By: Raissa Cerrato on 02-07-2025 Urea nitrogen [Mass/Vol] 21 mg/dL High 10-28 [facility] Serum or plasma uric acid me asurement (mass/volume)Ordered By: Raissa Cerrato on 02-07-2025 Urate [Mass/Vol] 9.1 mg/dL High 3.5-7.2 [facility] Comment on above: The drugs N-Acetylcy steine and Metamizole may falsely depress this assay. Sodium levelOrdered By: Jamin Cerrato on 02-07-2025 Sodium [Moles/Vol] 140 mmol/L 133-145 [facility] Uric Acidon 02-07-2025 URIC 9.1 mg/dL High 3.5-7.2 [facility] Comment on above: Result Comment: The drugs N-Acetylcysteine and Metamizole may falsely depress this assay. Performed By: #### L 501.0900, L501.1400, L500.3600 #### [facility] [address] [place], [place], [id number] Urine protein measurement (m ass/volume)Ordered By: Raissa Cerrato on 02-07-2025 Protein (U) [Mass/Vol] 10.3 mg/dL 0.0-12.0 [facility] Urine protein/creatinine mas s ratioOrdered By: Raissa Cerrato on 02-07-2025 Protein/Creatinine (U) [Mass ratio] 134 mg/g CRE 0-200 [facility] CNOVon 01-29-2025 CNOV Office Visit (DEX ) -- GORAN GABRIEL ([id number]) 1945 M Date Time Provider Department 01/29/25 11:40 AM CHEMA OREILLY During your visit today, we recorded the following information about you: Pulse Respiration Blood pressure Weight 86/minute 14/minute 116/60 105.2 kg Height 1.651 m Chema Oreilly MD 01/29/2025 11:10 AM Signed Chema Oreilly MD Interventional Cardiology [address], [place] [address] [phone] Chief Complaint Patient presents with: Follow Up: 3 month follow up- heart cath at [facility], c/o dizziness in the mornings HISTORY OF PRESENT ILLNESS: Mr. Gabriel is a 79-year-old male with a history of hyperlipidemia and hypertension, status post rotablation and drug-eluting stent placement in the RCA, presenting for follow-up. The patient reports experiencing occasional dizziness upon standing in the mornings. He monitors his blood pressure at home, noting it is sometimes elevated but was perfect today. He feels that the recent intervention has improved his energy levels. He denies any dyspnea or chest pain. He is currently undergoing pulmonary testing for asthma and has a follow-up appointment next month. He also reports nocturnal nasal congestion, leading to mouth breathing during sleep. He notes a red sven on his skin, which he attributes to his blood thinner medication. He denies any issues with his groin. Current medications include aspirin, atorvastatin, hydrochlorothiazide, hydroxychloroquine, losartan, metoprolol, and Brilinta. Cardiac Risk Factors age (male over 45, female over 55), hyperlipidemia, hypertension, family history of CAD PAST MEDICAL HISTORY Diagnosis Date Aortic stenosis mild BPH associated with nocturia Hyperglycemia Hyperlipidemia Hypertension IMPOTENCE, ORGANIC ORIGN Kidney congenitally absent, right L-S radiculopathy right leg, Stenosis on lumbar MRI Obesity Personal history of colonic polyps PAST SURGICAL HISTORY Procedure Laterality Date APPENDECTOMY COLONOSCOPY 10/05/2018 COLONOSCOPY FLX DX W/COLLJ SPEC WHEN PFRMD 09/05/13 normal colon - prior polyps 5 year follow up COLSC FLX W/RMVL OF TUMOR POLYP LESION SNARE TQ 01/20/2005 COLSC FLX W/RMVL OF TUMOR POLYP LESION SNARE TQ 06/13/10 polyps cecum and 45cm, tubular adenomas RPR 1ST INGUN HRNA AGE 5 YRS/> REDUCIBLE Hernia repair, inguinal bilateral RX RIB FRACTURE W 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 Rinse mouth after use. 3 each 3 Aspirin 81 mg tab Take 81 mg by mouth one time only. Pre cath metoprolol succinate ER (TOPROL XL) 25 mg 24 hr tablet Take 2 tablets by mouth once daily. 90 tablet 3 iv contrast (will be provided with radiology test) CTA ABD/PEL - No IV access, insert saline lock prior to the sedation, infusion, injection for imaging exam. Discontinue saline lock post exam. If Pt. has a central line or IVAD, may access for administration according to line specific nursing protocol. Once exam is complete flush line and de-access according to line specific nursing protocol in the CT contrast administration guidelines link. 1 each 0 atorvastatin (LIPITOR) 20 mg tablet Take 1 tablet by mouth once daily. 90 tablet 3 losartan (COZAAR) 100 mg tablet Take 1 tablet by mouth once daily. 90 tablet 3 tamsulosin (FLOMAX) 0.4 mg Take 1 capsule by mouth daily at bedtime. 90 capsule 3 predniSONE (DELTASONE) 10 mg tablet Take 10 mg by mouth as needed. hydroxychloroquine (PLAQUENIL) 200 mg tablet Take 200 mg by mouth two times a day. hydroCHLOROthiazide 25 mg tablet Take 1 tablet by mouth once daily. 90 tablet 3 ticagrelor (BRILINTA) 90 mg tablet Take 1 tablet by mouth two times a day. 60 tablet 3 No current facility-administered medications for this visit. Review of Systems Constitutional: Negative for chills, diaphoresis, fever, malaise/fatigue and weight loss. HENT: Negative for congestion, ear discharge, ear pain, hearing loss, nosebleeds, sinus pain, sore throat and tinnitus. Eyes: Negative for blurred vision, double vision, photophobia, pain, discharge and redness. Respiratory: Negative for cough, hemoptysis, sputum production, shortness of breath, wheezing and stridor. Cardiovascular: Negative for chest pain, palpitations, orthopnea, claudication, leg swelling and PND. Gastrointestinal: Negative for (more content not included)... Normal [facility] HARVEYGORAN Bria ([id number]) 1945 M Date Time Provider Department 01/17/25 MIGUELANGEL COURTNEY During your visit today, we recorded the following information about you: Miguelangel Courtney MD 01/17/2025 4:53 PM Signed Pfts show no definite emphysema or asthma. Shows restriction where the lungs don't move as much. Can sometimes be related to the way a person is built but other diseases can cause it as well. Lets have him see pulmonary given his shortness of breath. Priscilla Rangel LPN 01/17/2025 5:07 PM Signed Patient is notified. Please contact him to set up with pulm. Claudia Farmer 01/18/2025 8:48 AM Signed Contacted patient, scheduled 02-15 Allergies As of Date: 01/17/2025 Noted Allergy Reaction SIMVASTATIN 04/23/2016 5 - Intolerance Comments: myalgias Date Reviewed: 01/17/2025 Reviewed by: Angelina Cummings RPFT - Fully Assessed Reason for Visit: Results [95] Primary Visit Diagnosis:SOB (shortness of breath) [R06.02] Order(s):CONSULT TO PULM/CRITICAL CARE [806362] Order #: [id number]: 1 FUTURE Prescriptions as of 01/19/2025 - fluticasone (FLONASE) 50 mcg/actuation nasal spray Use 1 spray in each nostril once daily. Rinse mouth after use. - Aspirin 81 mg tab Take 81 mg by mouth one time only. Pre cath - metoprolol succinate ER (TOPROL XL) 25 mg 24 hr tablet Take 2 tablets by mouth once daily. - ticagrelor (BRILINTA) 90 mg tablet Take 1 tablet by mouth two times a day. - iv contrast (will be provided with radiology test) CTA ABD/PEL - No IV access, insert saline lock prior to the sedation, infusion, injection for imaging exam. Discontinue saline lock post exam. If Pt. has a central line or IVAD, may access for administration according to line specific nursing protocol. Once exam is complete flush line and de-access according to line specific nursing protocol in the CT contrast administration guidelines link. - atorvastatin (LIPITOR) 20 mg tablet Take 1 tablet by mouth once daily. - losartan (COZAAR) 100 mg tablet Take 1 tablet by mouth once daily. - tamsulosin (FLOMAX) 0.4 mg Take 1 capsule by mouth daily at bedtime. - hydroCHLOROthiazide 25 mg tablet Take 1 tablet by mouth once daily. - predniSONE (DELTASONE) 10 mg tablet Take 10 mg by mouth as needed. - hydroxychloroquine (PLAQUENIL) 200 mg tablet Take 200 mg by mouth two times a day. 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] 05/21/2012 L-S radiculopathy [M54.17] 05/21/2012 05/14/2022 Left knee sprain [S83.92XA] 12/09/2012 09/26/2014 Abnormal glucose [R73.09] 02/13/2013 10/30/2020 Sciatica [M54.30] 02/13/2013 10/29/2016 Obesity [E66.9] 02/13/2013 05/14/2022 Lumbar stenosis [M48.061] 09/26/2014 Aortic valve stenosis [I35.0] 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, M19.*02/24/2017 10/30/2020 Left hip pain [M25.552] 02/24/2017 01/16/2019 Cellulitis of right hand [L03.113] 11/28/2018 12/01/2018 Neck pain [M54.2] 11/28/2018 01/16/2019 Acute deep vein thrombosis (DVT) of femoral vei*01/13/2019 10/30/2020 Acute deep vein thrombosis (DVT) of distal end *01/16/2019 02/17/2019 Varicose veins of both legs with edema [I83.893]01/16/2019 Screening for ischemic heart disease [Z13.6] 01/16/2019 05/14/2022 History of cellulitis [Z87.2] 01/16/2019 05/07/2021 Other proteinuria [R80.8] 07/21/2019 Prediabetes [R73.03] 05/07/2021 Inflammatory polyarthritis (HCC) [M06.4] 05/07/2021 Obesity, Class II, BMI 35-39.9 [E66.812] 08/04/2021 Aortic valve disorder [I35.9] 08/04/2021 05/14/2022 Cellulitis of foot [L03.119] 11/11/2022 05/26/2023 Hypertension [I10] 05/26/2023 05/26/2023 Diagnosed: 05/26/2023 Right inguinal pain [R10.31] 05/26/2023 05/26/2023 Diagnosed: 05/26/2023 Post PTCA [Z98.61] 12/26/2024 Coronary artery disease involving capitan grande patrick*12/26/2024 S/P angioplasty with stent [Z95.820] 01/10/2025 Encounter Status:Closed by MIGUELANGEL COURTNEY on 01/19/25 Normal [facility] LUNG VOLUMESon 01-17-2025 LUNG VOLUMES [facility] [address] [place] [address] Test Date: 2025-01-17 Pat Name: GORAN GABRIEL Department: Room: 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 No contraindications or sensitivities were noted. Meds taken: No inhaled respiratory medications taken before testing. Current ATS/ERS acceptability and repeatability standards for spirometry met. Start of test and EOFE criteria met. Lung Volumes are repeatable x3. IMPRESSION: Spirometry indicates no obstruction. The reduced FVC could indicate restriction, recommend lung volumes for definitive determination. Decrease in TLC indicates restriction. Electronically Signed On 01-17-2025 13:21:55 EDT by Deidre Soto MD ID: [id number] Name: GORAN GABRIEL Race: White Ht: 65.98 in Wt: 226.00 lbs Age: 79 Gender: Male : 1945 Dx: Shortness of breath Smoking Hx: Non-smoker Doctor: MIGUELANGEL COURTNEY Test Date: 01/17/2025 Site: Tech: Angelina Cummings PRE-BRONCH POST-BRONCH Oziel LLN Pred ULN %Pred ZScore Oziel %Pred %Chg ZScore SPIROMETRY FVC 2.31 2.39 3.25 4.11 71 -1.80 FEV1 1.63 1.75 2.42 3.06 67 -1.93 FEV1/FVC 0.70 0.62 0.77 0.88 91 -0.78 FEFMax 6.13 4.37 6.43 8.48 95 -0.24 FEF50 1.75 0.89 3.02 5.14 58 -0.98 FIF50 3.06 FEF50/FIF50 0.57 90-100 FIVC 1.93 [id number] 0.81 0.71 1.85 3.54 43 -1.45 ExpiredTime 10.06 TimeToFEFMax 0.08 NELLY 0.08 VolExtrap% 4 LUNG VOLUMES FRC(Pleth) 1.98 2.39 3.42 4.71 57 -2.44 ERV 0.56 1.08 52 RV(Pleth) 1.41 1.34 2.43 3.77 58 -1.52 SVC 2.21 2.39 3.25 4.11 68 -1.99 IC 1.59 2.16 73 TLC(Pleth) 3.56 4.80 6.17 7.56 57 -3.15 RV/TLC(Pleth) 40 27 40 54 98 -0.08 Comments: Medications and Allergies were reviewed for possible drug interactions per policy. No contraindications or sensitivities were noted. Meds taken: No inhaled respiratory medications taken before testing. Current ATS/ERS acceptability and repeatability standards for spirometry met. Start of test and EOFE criteria met. Lung Volumes are repeatable x3. Normal [facility] No Panel Informationon 01-17 [facility] [address] 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 No contraindications or sensitivities were noted. Meds taken: No inhaled respiratory medications taken before testing. Current ATS/ERS acceptability and repeatability standards for spirometry met. Start of test and EOFE criteria met. Lung Volumes are repeatable x3. IMPRESSION: Spirometry indicates no obstruction. The reduced FVC could indicate restriction, recommend lung volumes for definitive determination. Decrease in TLC indicates restriction. Electronically Signed On 01-17-2025 13:21:55 EDT by Deidre Soto MD ID: [id number] Name: GORAN GABRIEL Race: White Ht: 65.98 in Wt: 226.00 lbs Age: 79 Gender: Male : 1945 Dx: Shortness of breath Smoking Hx: Non-smoker Doctor: MIGUELANGEL COURTNEY Test Date: 01/17/2025 Site: Tech: Angelina Cummings PRE-BRONCH POST-BRONCH Oziel LLN Pred ULN %Pred ZScore Oziel %Pred %Chg ZScore SPIROMETRY FVC 2.31 2.39 3.25 4.11 71 -1.80 FEV1 1.63 1.75 2.42 3.06 67 -1.93 FEV1/FVC 0.70 0.62 0.77 0.88 91 -0.78 FEFMax 6.13 4.37 6.43 8.48 95 -0.24 FEF50 1.75 0.89 3.02 5.14 58 -0.98 FIF50 3.06 FEF50/FIF50 0.57 90-100 FIVC 1.93 [id number] 0.81 0.71 1.85 3.54 43 -1.45 ExpiredTime 10.06 TimeToFEFMax 0.08 NELLY 0.08 VolExtrap% 4 LUNG VOLUMES FRC(Pleth) 1.98 2.39 3.42 4.71 57 -2.44 ERV 0.56 1.08 52 RV(Pleth) 1.41 1.34 2.43 3.77 58 -1.52 SVC 2.21 2.39 3.25 4.11 68 -1.99 IC 1.59 2.16 73 TLC(Pleth) 3.56 4.80 6.17 7.56 57 -3.15 RV/TLC(Pleth) 40 27 40 54 98 -0.08 Comments: Medications and Allergies were reviewed for possible drug interactions per policy. No contraindications or sensitivities were noted. Meds taken: No inhaled respiratory medications taken before testing. Current ATS/ERS acceptability and repeatability standards for spirometry met. Start of test and EOFE criteria met. Lung Volumes are repeatable x3. PULMONARY FUNCTION LAB [facility] SPIROMETRY WITH DILATOR IF O BSTRUCTEDon 01-17-2025 ERV BOX (L) 0.56 L [facility] ERV PREDICTED (L) 1.08 L/S [facility] FEF25% PRE (L/S) 5.47 L/S [facility] ZGZ47-42% LLN (L/S) 0.71 L/S [facility] WNL09-64% PRE (L/S) 0.81 L/S [facility] OCM65-84% PREDICTED (L/S) 1.85 L/S [facility] FEF75% LLN (L/S) 0.15 L/S [facility] FEF75% PRE (L/S0 0.18 L/S [facility] FEF75% PREDICTED (L/S) 0.45 L/S [facility] FEF75% ULN (L/S) 1.27 L/S [facility] FET PRE (S) 10.06 S [facility] FEV1 LLN (L) 1.75 L [facility] FEV1 PRE (L) 1.63 L [facility] FEV1 PREDICTED (L) 2.42 L [facility] FEV1 ULN (L) 3.06 L [facility] FEV1/FVC LLN (%) 62 % [facility] FEV1/FVC PRE (%) 70 % [facility] FEV1/FVC PREDICTED (%) 77 % [facility] FRC Box (L) 1.98 L [facility] FVC LLN (L) 2.39 L [facility] FVC PRE (L) 2.31 L [facility] FVC PREDICTED (L) 3.25 L [facility] FVC ULN (L) 4.11 L [facility] IC BOX (L) 1.59 L [facility] IC PREDICTED (L) 2.16 L/S [facility] PEF LLN (L/S) 4.37 L/S [facility] PEF PRE (L/S) 6.13 L/S [facility] PEF ULN (L/S) 8.48 L/S [facility] RV Box (L) 1.41 L [facility] RV Box PREDICTED (L) 2.43 L [facility] RV/TLC Box (%) 40 % [facility] RV/TLC Box PREDICTED (%) 40 % [facility] SVC LLN (L) 2.39 L/S [facility] SVC PREDICTED (L) 3.25 L/S [facility] SVC ULN (L) 4.11 L/S [facility] TLC Box (L) 3.56 L [facility] TLC Box PREDICTED (L) 6.17 L [facility] VC (L) BOX 2.21 L [facility] SPIROMETRY WITH DILATOR IF OBSTRUCTED [facility] [place] [address] [place] [address] Test Date: 2025-01-17 Pat Name: GORAN GABRIEL Department: Room: 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 No contraindications or sensitivities were noted. Meds taken: No inhaled respiratory medications taken before testing. Current ATS/ERS acceptability and repeatability standards for spirometry met. Start of test and EOFE criteria met. Lung Volumes are repeatable x3. IMPRESSION: Spirometry indicates no obstruction. The reduced FVC could indicate restriction, recommend lung volumes for definitive determination. Decrease in TLC indicates restriction. Electronically Signed On 01-17-2025 13:21:55 EDT by Deidre Soto MD ID: [id number] Name: GORAN GABRIEL Race: White Ht: 65.98 in Wt: 226.00 lbs Age: 79 Gender: Male : 1945 Dx: Shortness of breath Smoking Hx: Non-smoker Doctor: MIGUELANGEL COURTNEY Test Date: 01/17/2025 Site: Tech: Angelina Cummings PRE-BRONCH POST-BRONCH Oziel LLN Pred ULN %Pred ZScore Oziel %Pred %Chg ZScore SPIROMETRY FVC 2.31 2.39 3.25 4.11 71 -1.80 FEV1 1.63 1.75 2.42 3.06 67 -1.93 FEV1/FVC 0.70 0.62 0.77 0.88 91 -0.78 FEFMax 6.13 4.37 6.43 8.48 95 -0.24 FEF50 1.75 0.89 3.02 5.14 58 -0.98 FIF50 3.06 FEF50/FIF50 0.57 90-100 FIVC 1.93 [id number] 0.81 0.71 1.85 3.54 43 -1.45 ExpiredTime 10.06 TimeToFEFMax 0.08 NELLY 0.08 VolExtrap% 4 LUNG VOLUMES FRC(Pleth) 1.98 2.39 3.42 4.71 57 -2.44 ERV 0.56 1.08 52 RV(Pleth) 1.41 1.34 2.43 3.77 58 -1.52 SVC 2.21 2.39 3.25 4.11 68 -1.99 IC 1.59 2.16 73 TLC(Pleth) 3.56 4.80 6.17 7.56 57 -3.15 RV/TLC(Pleth) 40 27 40 54 98 -0.08 Comments: Medications and Allergies were reviewed for possible drug interactions per policy. No contraindications or sensitivities were noted. Meds taken: No inhaled respiratory medications taken before testing. Current ATS/ERS acceptability and repeatability standards for spirometry met. Start of test and EOFE criteria met. Lung Volumes are repeatable x3. FVC_PRE (L) : 2.31 L FVC_PRED (L) : 3.25 L FVC_LLN (L) : 2.39 L FVC_ULN (L) : 4.11 L FEV1_PRE (L) : 1.63 L FEV1_PRED (L) : 2.42 L FEV1_LLN (L) : 1.75 L FEV1_ULN (L) : 3.06 L FEV1/FVC_PRE (%) : 70 % FEV1/FVC_PRED (%) : 77 % FEV1/FVC_LLN (%) : 62 % QXK30_VYY (L/S) : 5.47 L/S LMJ05_BOA (L/S) : 0.18 L/S JOW04_PEYY (L/S) : 0.45 L/S MGS28_JTW (L/S) : 0.15 L/S DZZ23_MHO (L/S) : 1.27 L/S POX00-61%_PRE (L/S) : 0.81 L/S PZR16-36%_PRED (L/S) : 1.85 L/S NDS87-33%_LLN (L/S) : 0.71 L/S PEF_PRE (L/S) : 6.13 L/S PEFMAX_LLN (L/S) : 4.37 L/S PEFMAX_ULN (L/S) : 8.48 L/S VC BOX (L) : 2.21 L SVC_PRED (L) : 3.25 L/S SVC_LLN (L) : 2.39 L/S SVC_ULN (L/S) : 4.11 L/S IC BOX (L) : 1.59 L IC_PRED (L) : 2.16 L/S ERV BOX (L) : 0.56 L ERV_PREDICTED (L) : 1.08 L/S FET_PRE (S) : 10.06 S FRC BOX (L) : 1.98 L RV BOX (L) : 1.41 L RV_PLETH_PRED (L) : 2.43 L TLC BOX (L) : 3.56 L TLC_PLETH_PRED (L) : 6.17 L RV/TLC BOX (%) : 40 % RV_TLC_PLETH_PRED (%) : 40 % Normal [facility] ED NOTEon 01-11-2025 ED NOTE HNO ID: [id number] Author: ALFREDO SHERWOOD RN Service: ? Author Type: Registered Nurse Type: ED Notes Filed: 01/11/2025 14:20 Note Text: Bed: 10-ED Expected date: 01/11/25 Expected time: 2:13 PM Means of arrival: [facility] Comments: 87 M [facility] CNOVon 01-10-2025 CNOV Office Visit (FAMPWS ) -- GORAN GABRIEL ([id number]) 1945 M Date Time Provider Department 01/10/25 8:40 AM MIGUELANGEL COURTNEY FAMPWS During your visit today, we recorded the following information about you: Pulse Blood pressure Weight 82/minute 142/82 103.9 kg Miguelangel Courtney MD 01/10/2025 9:02 AM Signed - Continue taking Brilinta, aspirin, atorvastatin, and your current blood pressure medicines as prescribed. - Schedule and complete spirometry and lung volume testing to evaluate your breathing; call the office to arrange these tests. - Use the Cologuard at-home stool test for colon screening: watch for the kit arriving by mail, follow the instructions, and return it via UPS. - Monitor your bowel symptoms (gas and occasional diarrhea); contact us if these continue or worsen. - Track your blood pressure at home; if readings stay above 140/90 mmHg, let us know. - Return in about 4 weeks for a blood pressure check with Loraine or Uzma. - Follow up in March for routine review of your heart and overall health. - Reduce your salt intake, stay active, and ensure adequate fluids and fiber to support both blood pressure control and bowel health. Miguelangel Courtney MD 01/10/2025 12:27 PM Signed Goran Bria Harvey is a 79-year-old male with a history of CAD, HTN, and dyspnea, presenting for follow-up after recent RCA stent placement. HPI RCA Stent Placement: - Hospitalized at [facility] from 12/25 to 12/26. - Underwent heart catheterization by Dr. Oreilly on 12/25, with RCA stent placement. - Initial attempt on 11/14 was unsuccessful. - RCA was 90% narrowed and severely calcified. - Procedure involved a rotablator; Goran reports feeling warmth and discomfort during the procedure. - Post-procedure, experienced lightheadedness and dizziness for a few days; still occasionally feels dizzy. - No current issues with bruising, pain, or swelling at the catheterization site. - Taking Brilinta, aspirin, atorvastatin, and antihypertensive medications. Dyspnea: - Chronic dyspnea, exacerbated by heat and physical activity. - Previous spirometry on 10/31/2020 showed mild obstruction and possible restriction. - CT negative for fibrosis on recent CTA - Considering the use of an inhaler. Hypertension: - Home blood pressure readings range from 137/82 to 142/82 mmHg. - Blood pressure today was 142/82 mmHg. Diarrhea: - Intermittent diarrhea with significant gas, x2 weeks. - No hematochezia. - Denies recent illness, travel, or antibiotic use. - Last colonoscopy in 2019; family history of colon cancer in son, who is now cancer-free. MEDICATIONS: Current Outpatient Medications Medication Sig fluticasone (FLONASE) 50 mcg/actuation nasal spray Use 1 spray in each nostril once daily. Rinse mouth after use. Aspirin 81 mg tab Take 81 mg by mouth one time only. Pre cath metoprolol succinate ER (TOPROL XL) 25 mg 24 hr tablet Take 2 tablets by mouth once daily. ticagrelor (BRILINTA) 90 mg tablet Take 1 tablet by mouth two times a day. atorvastatin (LIPITOR) 20 mg tablet Take 1 tablet by mouth once daily. losartan (COZAAR) 100 mg tablet Take 1 tablet by mouth once daily. tamsulosin (FLOMAX) 0.4 mg Take 1 capsule by mouth daily at bedtime. hydroCHLOROthiazide 25 mg tablet Take 1 tablet by mouth once daily. hydroxychloroquine (PLAQUENIL) 200 mg tablet Take 200 mg by mouth two times a day. fluticasone (FLONASE) 50 mcg/actuation nasal spray Use 2 sprays in each nostril once daily. Rinse mouth after use. iv contrast (will be provided with radiology test) CTA ABD/PEL - No IV access, insert saline lock prior to the sedation, infusion, injection for imaging exam. Discontinue saline lock post exam. If Pt. has a central line or IVAD, may access for administration according to line specific nursing protocol. Once exam is complete flush line and de-access according to line specific nursing protocol in the CT contrast administration guidelines link. predniSONE (DELTASONE) 10 mg tablet Take 10 mg by mouth as needed. No current facility-administered medications for this visit. ALLERGIES: ALLERGIES Allergen Reactions Simvastatin Intolerance myalgias PAST MEDICAL HISTORY Diagnosis Date Aortic stenosis mild BPH associated with nocturia Hyperglycemia Hyperlipidemia Hypertension IMPOTENCE, ORGANIC ORIGN Kidney congenitally absent, right L-S radiculopathy right leg, Stenosis on lumbar MRI Obesity Personal history of colonic polyps PAST SURGICAL HISTORY Procedure Laterality Date APPENDECTOMY COLONOSCOPY 10/05/2018 COLONOSCOPY FLX DX W/COLLJ SPEC WHEN PFRMD 09/05/13 normal colon - prior polyps 5 year follow up COLSC FLX W/RMVL OF TUMOR POLYP LESION SNARE TQ 01/20/2005 COLSC FLX W/RMVL OF TUMOR POLYP LESION SNARE TQ 06/13/10 polyps cecum and 45cm, tubular adenomas RPR 1ST INGUN HRNA AGE 5 YRS/> REDUC (more content not included)... Normal [facility] Basic metabolic 2000 panelon 12-26-2024 Anion gap [Moles/Vol] 9 mmol/L Normal 8-15 [facility] Comment on above: Order Comment: Speci men Type: BLOOD SPECIMEN Ordering Facility: [facility] Address: [address] [place] [address] Performed By: #### 2 4321-2 #### [facility] CLIA [id number] [address] [place] [address] [place] Calcium [Mass/Vol] 9.5 mg/dL Normal 8.5-10.2 [facility] Comment on above: Order Comment: Speci men Type: BLOOD SPECIMEN Ordering Facility: [facility] Address: [address] [place] [address] Performed By: #### 2 4321-2 #### [facility] CLIA [id number] [address] [place] [address] [place] Chloride [Moles/Vol] 103 mmol/L Normal 98-107 [facility] Comment on above: Order Comment: Speci men Type: BLOOD SPECIMEN Ordering Facility: [facility] Address: [address] [place] [address] Performed By: #### 2 4321-2 #### [facility] CLIA [id number] [address] CO2 [Moles/Vol] 27 mmol/L Normal 22-30 [facility] Comment on above: Order Comment: Speci men Type: BLOOD SPECIMEN Ordering Facility: [facility] Address: [address] [place] [address] Performed By: #### 2 4321-2 #### [facility] CLIA [id number] [address] Creatinine [Mass/Vol] 0.89 mg/dL Normal 0.73-1.22 [facility] Comment on above: Order Comment: Speci men Type: BLOOD SPECIMEN Ordering Facility: [facility] Address: [address] [place] [address] Performed By: #### 2 4321-2 #### [facility] CLIA [id number] [address] Creatinine and Glomerular filtration rate.predicted panel (S/P/Bld) 87 mL/min/1.73m??? Normal >=60 [facility] Comment on above: Order Comment: Speci men Type: BLOOD SPECIMEN Ordering Facility: [facility] Address: [address] [place] [address] Result Comment: Hamida mated Glomerular Filtration Rate (eGFR) is calculated using the 2020 CKD-EPI creatinine equation. This equation utilizes serum creatinine, sex, and age as parameters. The creatinine assay has traceable calibration to isotope dilution-mass spectrometry. Refer to KDIGO guidelines for clinical interpretation. In patients with unstable renal function, e.g. those with acute kidney injury, the eGFR may not accurately reflect actual GFR. Performed By: #### 2 4321-2 #### [facility] CLIA [id number] [address] Glucose [Mass/Vol] 135 mg/dL High 74-99 [facility] Comment on above: Order Comment: Speci men Type: BLOOD SPECIMEN Ordering Facility: [facility] Address: [address] [place] [address] Result Comment: The [place] Diabetes [employer] (ADA) provides guidance for cutoff values for fasting glucose and random glucose. The ADA defines fasting as no caloric intake for at least 8 hours. Fasting plasma glucose results between 100 to 125 mg/dL indicate increased risk for diabetes (prediabetes). Fasting plasma glucose results greater than or equal to 126 mg/dL meet the criteria for diagnosis of diabetes. In the absence of unequivocal hyperglycemia, results should be confirmed by repeat testing. In a patient with classic symptoms of hyperglycemia or hyperglycemic crisis, random plasma glucose results greater than or equal to 200 mg/dL meet the criteria for diagnosis of diabetes. Reference: Standards of Medical Care in Diabetes 2016, [place] [employer] Association. Diabetes Care. 2016.39(Suppl 1). Performed By: #### 2 4321-2 #### [facility] CLIA [id number] [address] STATES OF [facility] Potassium [Moles/Vol] 4.2 mmol/L Normal 3.7-5.1 [facility] Comment on above: Order Comment: Shannen jones Type: BLOOD SPECIMEN Ordering Facility: [facility] Address: [address] [place] [address] Performed By: #### 2 4321-2 #### [facility] CLIA [id number] [address] STATES [facility] Sodium [Moles/Vol] 139 mmol/L Normal 136-144 [facility] Comment on above: Order Comment: Shannen jones Type: BLOOD SPECIMEN Ordering Facility: [facility] Address: [address] [place] [address] Performed By: #### 2 4321-2 #### [facility] CLIA [id number] [address] STATES [facility] Urea nitrogen [Mass/Vol] 14 mg/dL Normal 9-24 [facility] Comment on above: Order Comment: Shannen jones Type: BLOOD SPECIMEN Ordering Facility: [facility] Address: [address] [place] [address] Performed By: #### 2 4321-2 #### [facility] CLIA [id number] [address] OF [facility] CBC panel Auto (Bld)on 12-26 Erythrocyte distribution width (RBC) [Ratio] 13.0 % Normal 11.5-15.0 [facility] Comment on above: Order Comment: Speci men Type: BLOOD SPECIMEN Ordering Facility: [facility] Address: [address] [place] [address] Performed By: #### 5 8410-2 #### [facility] CLIA [id number] [address] OF [facility] Hematocrit (Bld) [Volume fraction] 38.3 % Low 39.0-51.0 [facility] Comment on above: Order Comment: Speci men Type: BLOOD SPECIMEN Ordering Facility: [facility] Address: [address] [place] [address] Performed By: #### 5 8410-2 #### [facility] CLIA [id number] [address] [place] Hemoglobin (Bld) [Mass/Vol] 12.9 g/dL Low 13.0-17.0 [facility] Comment on above: Order Comment: Speci men Type: BLOOD SPECIMEN Ordering Facility: [facility] Address: [address] [place] [address] Performed By: #### 5 8410-2 #### [facility] CLIA [id number] [address] STATES OF [facility] MCH (RBC) [Entitic mass] 31.2 pg Normal 26.0-34.0 [facility] Comment on above: Order Comment: Speci men Type: BLOOD SPECIMEN Ordering Facility: [facility] Address: [address] [place] [address] Performed By: #### 5 8410-2 #### [facility] CLIA [id number] [address] [place] MCHC (RBC) [Mass/Vol] 33.7 g/dL Normal 30.5-36.0 [facility] Comment on above: Order Comment: Speci men Type: BLOOD SPECIMEN Ordering Facility: [facility] Address: [address] [place] [address] Performed By: #### 5 8410-2 #### [facility] CLIA [id number] [address] MCV (RBC) [Entitic vol] 92.7 fL Normal 80.0-100.0 [facility] Comment on above: Order Comment: Speci men Type: BLOOD SPECIMEN Ordering Facility: [facility] Address: [address] [place] [address] Performed By: #### 5 8410-2 #### [facility] CLIA [id number] [address] OF [place] Nucleated RBC (Bld) [#/Vol] 10*3/uL Normal <0.01 [facility] Comment on above: Order Comment: Speci men Type: BLOOD SPECIMEN Ordering Facility: [facility] Address: [address] [place] [address] Performed By: #### 5 8410-2 #### [facility] CLIA [id number] [address] Platelet mean volume (Bld) [Entitic vol] 10.6 fL Normal 9.0-12.7 [facility] Comment on above: Order Comment: Speci men Type: BLOOD SPECIMEN Ordering Facility: [facility] Address: [address] [place] [address] Performed By: #### 5 8410-2 #### [facility] CLIA [id number] [address] Platelets (Bld) [#/Vol] 228 10*3/uL Normal 150-400 [facility] Comment on above: Order Comment: Speci men Type: BLOOD SPECIMEN Ordering Facility: [facility] Address: [address] [place] [address] Performed By: #### 5 8410-2 #### [facility] CLIA [id number] [address] OF [place] RBC (Bld) [#/Vol] 4.13 10*6/uL Low 4.20-6.00 [facility] Comment on above: Order Comment: Speci men Type: BLOOD SPECIMEN Ordering Facility: [facility] Address: [address] [place] [address] Performed By: #### 5 8410-2 #### [facility] CLIA [id number] [address] WBC (Bld) [#/Vol] 10.89 10*3/uL Normal 3.70-11.00 [facility] Comment on above: Order Comment: Specmarques jones Type: BLOOD SPECIMEN Ordering Facility: [facility] Address: [address] [place] [id number] Performed By: #### 5 8410-2 #### [facility] CLIA [id number] [address] CNDSon 12-26-2024 CNDS HNO ID: [id number] Author: CHEMA OREILLY MD Service: Cardiovascular Disease Author Type: Physician Type: Discharge Summary Filed: 01/18/2025 14:29 Note Text: DISCHARGE SUMMARY PATIENT NAME: Goran Gabriel Code Status: Full Code Highest Readmission Risk Score: 9 The 30 day readmissions risk score is derived from an internally validated risk model which evaluates patient level characteristics, utilization history, medication orders and lab results up until the day of discharge. Patients with a score of 39 or above are considered highest risk for readmission. Specific patient level drivers will be listed at the bottom of the summary. Admission Information Admission Information ADMIT DATE: 12/25/2024 DISCHARGE DATE: 12/26/2024 MY DOCTORS AND MEDICAL TEAM: My Main Hospital Doctor: Chema Oreilly MD Primary Care Provider: Miguelangel Courtney MD My Medical Team Members: Treatment Team: Attending Provider: Chema Oreilly MD MY CONDITION AT DISCHARGE: Stable REASON I WAS IN THE HOSPITAL: You came in for an elective heart catheterization with Dr. Oreilly. SUMMARY OF WHAT HAPPENED WHILE I WAS IN THE HOSPITAL: You had a stent placed to your right coronary artery with the use of Rotablato. You were prescribed a new medication called brilinta to prevent a blood clot from forming on your new stent. This medication should not be stopped unless directed by your cardiology office. You are recommended to attend cardiac rehab. You should be arranged a follow-up appointment in our [place] [place]. OTHER PROBLEMS/DIAGNOSIS: Active Problems: * No active hospital problems. * Resolved Problems: * No resolved hospital problems. * OPERATIONS PERFORMED WHILE IN THE HOSPITAL: None IMPORTANT TEST/PROCEDURES: Heart Catheterization: Intervention: GABRIEL to RCA TEST RESULTS NOT AVAILABLE AT THIS TIME: No pending results Discharge Disposition Discharge Disposition: Home With Self Care Activity When You Leave the Hospital No lifting greater than 10 pounds for 1 week or greater than 30 pounds for 2 weeks. Take showers, not baths, for 1 week. Walk 10 minutes three times per day. Advance as tolerated per cardiac rehab program. Diet Instructions Heart Healthy Wound/Surgical Site Care Any bruising and bumps should disappear within 3-4 days Avoid lotions or powders Check your wound every day If the bruising expands or the bump enlarges please call your doctor Some bruising, soreness or a small bump under the skin at the inserion site is normal Wash your wound area with mild soap and water daily and gently pat dry with a towel Call Your Doctor If You have lightheadedness, fainting, or confusion You have redness, swelling, pus or drainage from the wound Your temperature is greater than 101F Additional Provider to Provider Information: No notes on file Treatment Team: Attending Provider: Chema Oreilly MD FINAL DIAGNOSIS: Coronary artery disease s/p PCI There are no hospital problems to display for this patient. Transitions of Care Critical Issues: LABS AND PROCEDURES PENDING AT DISCHARGE: No pending results. FOLLOW-UP APPOINTMENTS ALREADY SCHEDULED WITH A [facility] PROVIDER: Future Appointments Date Time Provider Department Center 01/29/2025 11:40 AM Chema Oreilly MD [facility] [place] [facility] 04/09/2025 5:40 PM Miguelangel Courtney MD [facility] 06/05/2025 9:00 AM Stephon Negron PA-C [facility] [place] [facility] 12/18/2025 9:00 AM Stephon Negron PA-C [facility] [place] [facility] ALLERGIES Allergen Reactions Simvastatin Intolerance myalgias DISCHARGE MEDICATION: Medication List CONTINUE taking these medications Aspirin 81 mg Tab atorvastatin 20 mg tablet Commonly known as: LIPITOR Take 1 tablet by mouth once daily. * fluticasone 50 mcg/actuation nasal spray Commonly known as: FLONASE Use 1 spray in each nostril once daily. Rinse mouth after use. * fluticasone 50 mcg/actuation nasal spray Commonly known as: FLONASE Use 2 sprays in each nostril once daily. Rinse mouth after use. hydroCHLOROthiazide 25 mg tablet Take 1 tablet by mouth once daily. hydrOXYchloroQUINE 200 mg tablet Commonly known as: PLAQUENIL iv contrast (will be provided with radiology test) CTA ABD/PEL - No IV access, insert saline lock prior to the sedation, infusion, injection for imaging exam. Discontinue saline lock post exam. If Pt. has a central line or IVAD, may access for administration according to line specific nursing protocol. Once exam is complete flush line and de-access according to line specific nursing protocol in the CT contrast administration guidelines link. losartan 100 mg tablet Commonly known as: COZAAR Take 1 tablet by mouth once daily. metoprolol succinate ER 25 mg 24 hr tablet Commonly known as: TOPROL XL Take 2 tablets by mouth once daily. predniSONE 10 mg tablet Commonly known as: DELTASONE tamsulosin 0.4 mg C (more content not included)... [facility] 12-26-2024 KATELYNNN Telephone (MARY) -- GORAN GABRIEL ([id number]) 1945 M Date Time Provider Department 12/26/24 LEONA HOLT During your visit today, we recorded the following information about you: Leona Holt Training Program Manager 12/26/2024 2:46 PM Signed Called patient regarding cardiac rehab. Patient wants to think about signing up for classes. Patient has my phone number to call if interested. Allergies As of Date: 12/26/2024 Noted Allergy Reaction SIMVASTATIN 04/23/2016 5 - Intolerance Comments: myalgias Date Reviewed: 12/26/2024 Reviewed by: Rashard Louise RN - Fully Assessed Reason for Visit: Appointment [186] Cmt: Cardiac Rehab Eval Prescriptions as of 12/26/2024 - fluticasone (FLONASE) 50 mcg/actuation nasal spray Use 1 spray in each nostril once daily. Rinse mouth after use. - fluticasone (FLONASE) 50 mcg/actuation nasal spray Use 2 sprays in each nostril once daily. Rinse mouth after use. - Aspirin 81 mg tab Take 81 mg by mouth one time only. Pre cath - metoprolol succinate ER (TOPROL XL) 25 mg 24 hr tablet Take 2 tablets by mouth once daily. - ticagrelor (BRILINTA) 90 mg tablet Take 1 tablet by mouth two times a day. - iv contrast (will be provided with radiology test) CTA ABD/PEL - No IV access, insert saline lock prior to the sedation, infusion, injection for imaging exam. Discontinue saline lock post exam. If Pt. has a central line or IVAD, may access for administration according to line specific nursing protocol. Once exam is complete flush line and de-access according to line specific nursing protocol in the CT contrast administration guidelines link. - atorvastatin (LIPITOR) 20 mg tablet Take 1 tablet by mouth once daily. - losartan (COZAAR) 100 mg tablet Take 1 tablet by mouth once daily. - tamsulosin (FLOMAX) 0.4 mg Take 1 capsule by mouth daily at bedtime. - hydroCHLOROthiazide 25 mg tablet Take 1 tablet by mouth once daily. - predniSONE (DELTASONE) 10 mg tablet Take 10 mg by mouth as needed. - hydroxychloroquine (PLAQUENIL) 200 mg tablet Take 200 mg by mouth once daily. 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.9] 06/09/2006 Pain in joint, shoulder region [M25.519] 06/21/2006 09/26/2014 Kidney congenitally absent, 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] 05/21/2012 L-S radiculopathy [M54.17] 05/21/2012 05/14/2022 Left knee sprain [S83.92XA] 12/09/2012 09/26/2014 Abnormal glucose [R73.09] 02/13/2013 10/30/2020 Sciatica [M54.30] 02/13/2013 10/29/2016 Obesity [E66.9] 02/13/2013 05/14/2022 Lumbar stenosis [M48.061] 09/26/2014 Aortic valve stenosis [I35.0] 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, M19.*02/24/2017 10/30/2020 Left hip pain [M25.552] 02/24/2017 01/16/2019 Cellulitis of right hand [L03.113] 11/28/2018 12/01/2018 Neck pain [M54.2] 11/28/2018 01/16/2019 Acute deep vein thrombosis (DVT) of femoral vei*01/13/2019 10/30/2020 Acute deep vein thrombosis (DVT) of distal end *01/16/2019 02/17/2019 Varicose veins of both legs with edema [I83.893]01/16/2019 Screening for ischemic heart disease [Z13.6] 01/16/2019 05/14/2022 History of cellulitis [Z87.2] 01/16/2019 05/07/2021 Other proteinuria [R80.8] 07/21/2019 Prediabetes [R73.03] 05/07/2021 Inflammatory polyarthritis (HCC) [M06.4] 05/07/2021 Obesity, Class II, BMI 35-39.9 [E66.812] 08/04/2021 Aortic valve disorder [I35.9] 08/04/2021 05/14/2022 Cellulitis of foot [L03.119] 11/11/2022 05/26/2023 Hypertension [I10] 05/26/2023 05/26/2023 Diagnosed: 05/26/2023 Right inguinal pain [R10.31] 05/26/2023 05/26/2023 Diagnosed: 05/26/2023 Post PTCA [Z98.61] 12/26/2024 Coronary artery disease involving capitan [place]*12/26/2024 Encounter Status:Closed by LEONA HOLT on 12/26/24 [facility] PT EDon 12-26-2024 PT ED HNO ID: [id number] Author: HONEY WHITTAKER DTR Service: Nutrition Therapy Author Type: Jewelry Drill Operator Type: Patient Education Filed: 12/26/2024 17:03 Note Text: NUTRITION THERAPY PATIENT EDUCATION SERVICE DATE: 12/26/2024 SERVICE TIME: 1025 TOPIC: Diet: Heart Healthy Exemption from nutrition education: Patient not ready to learn at this time due to patient was discharged prior to education Material(s) Provided to Patient: Education Materials Provided Nutrition Education CCHS: Your Sodium Controlled Mediterranean and a letter was sent to the patient about outpatient nutrition services and scheduling information. MNT Billing: $ Routine Care : 1 unit SIGNATURE: Honey Whittaker DTR PATIENT NAME: Goran Gabriel DATE: December 26, 2024 TIME: 5:02 PM PAGER: [facility] 12-25-2024 ALLIED HEALTH HNO ID: [id number] Author: TRINA QUIROGA RN Service: Cardiac Rehab Author Type: Registered Nurse Type: Allied Health Filed: 12/25/2024 11:22 Note Text: CARDIAC REHABILITATION PATIENT EDUCATION PROGRESS NOTE Name: Goran Gabriel Date of Service: 12/25/24 Time of Service: 1120 ASSESSMENT: Risk Factors Identified: Age Diabetic: pre-diabetic, not on medication Hyperlipidemia Hypertension Obesity Sedentary Lifestyle RECOMMENDATIONS: Patient interested in Phase II Outpatient Cardiac Rehab: Yes. Facility Preferred: [facility] DIAGNOSIS: Percutaneous Cardiac Intervention: GABRIEL PCI Teaching Points: -Personal Modifiable Risk Factor Identification -Activity/Physical Exercise Recommendations -Outpatient Cardiac Rehabilitation READINESS TO LEARN: Cognitive Ability: Alert and Oriented Motivation to Learn: Interested Family Support: High - Very involved in pt care Instruction Provided To: Patient and Family member Patient Learns Best By: Individual Instruction, Written Instruction - Hand-outs, and Verbal Instruction Factors Affecting Learning: None Physical Limitations Affecting Learning: None LEARNING RESPONSE: Method Of Instruction: Individual instruction Written instruction/Handouts Verbal instruction Patient/Family Response: Verbalizes understanding of: Cardiac Rehab Follow-up Plan: No further educational needs identified at this time. Instructional Aids Used: Cardiac Rehabilitation Brochure Signature: Trina Quiroga RN Pager: [phone] Date: December 25, 2024 Time: 11:21 AM [facility] CARD CATH INTERVENTon 2024 CARD CATH INTERVENT Site Id: [facility] Lab #: Study Date: 12/25/2024 Start Time: End Time: Name Duty Chema Oreilly MD, MD 1 Avtar Kenney MD, MD 2 Krystin Urbina RT PROC SCRUB 1 Agnes Cadena RN PROC CIRC 1 Hector Macario RN PROC RECORD 1 + + PATIENT INFORMATION + + Name: MR. GORAN GABRIEL : 1945 Age: 79 years Gender: Height: 67 in / 170 cm Weight: 227.20 lb / 103.06 kg BMI: 35.58 kg/m BSA: 2.13 m + ---+ CLINICAL HISTORY/INDICATIONS + ---+ Dyspnea and Abnormal ECG. Procedural Status: Elective CAD Presentation: Symptoms Likely to be Ischemic Angina Classification (within 2 weeks): CCS II No Heart Failure Clinical History: 79 male with Severe calcified Distal RCA disease. + + DIAGNOSTIC FINDINGS + + Coronary Anatomy: Right Dominant Injection Site(s): Coronary Artery LMT: LMT Status: Not Applicable. LAD: LAD Status: Not Applicable. LCX: LCX Status: Not Applicable. RAMUS: Ramus Status: Not Applicable. RCA: The RCA has moderate diffuse disease. The distal RCA is narrowed 90 % - severely calcified. + + IMPRESSION/PLAN + + Impression:1. Severe distal RCA disease. Recommended Treatment: PCI. Plan: Rotablator assissted PTCA to RCA. + + PCI SUMMARY + + Procedures Performed: Procedural Details: Procedure Summary: Successful PTCA with GABRIEL to Distal RCA Procedure Narrative: Lesion 1: RCA Distal Guide 1: 6FR AL 1. + +-- +-------- +------+--------+--------- -+ Type of Treatment Name of Device Diameter Length Pressure RPM/ Additional + +-- +-------- +------+--------+--------- -+ Rotational Atherectomy 977 ROTAPRO 160 Rotational 1.50 Atherectomy System + +-- +-------- +------+--------+--------- -+ Pre-Dilation NC Emerge RX 3.00 20 12 + +-- +-------- +------+--------+--------- -+ Stent NC Emerge RX 3.50 48 12 + +-- +-------- +------+--------+--------- -+ Post-Dilation NC Emerge RX 4.00 12 18 + +-- +-------- +------+--------+--------- -+ Post-Dilation NC Emerge RX 4.00 20 18 + +-- +-------- +------+--------+--------- -+ Imaging: INTRAVASCULAR ULTRASOUND +---+ + -----+ +--- -+ Run Lesion Timing Indication Findings +---+ + -----+ +--- -+ 1 RCA Distal before stenting lesion length calcification, Edge dissection, Fibrous plaque and Lipid rich plaque +---+ + -----+ +--- -+ 2 RCA Distal After stenting stent evaluation Well apposed stent and Well expanded stent +---+ + -----+ +--- -+ + + HEMODYNAMICS - XPER + + + +------+- ----+-------+------+------ +------+ Measurement Name Sys Marisabel End Marisabel Mean A Wave V Wave + +------+- ----+-------+------+------ +------+ AO 99.00 39.00 69.00 + +------+- ----+-------+------+------ +------+ AO 104.00 51.00 75.00 + +------+- ----+-------+------+------ +------+ AO 128.00 58.00 88.00 + +------+- ----+-------+------+------ +------+ AO 118.00 60.00 82.00 + +------+- ----+-------+------+------ +------+ AO 128.00 65.00 90.00 + +------+- ----+-------+------+------ +------+ AO 151.00 69.00 98.00 + +------+- ----+-------+------+------ +------+ AO 152.00 0.00 92.00 + +------+- ----+-------+------+------ +------+ AO 122.00 62.00 86.00 + +------+- ----+-------+------+------ +------+ AO 142.00 63.00 94.00 + +------+- ----+-------+------+------ +------+ AO 159.00 68.00 105.00 + +------+- ----+-------+------+------ +------+ Oximetry: + +---- ---+ +--+---+- ----+ Time Site O2 Saturation O2 PO2 HB + +---- ---+ +--+---+- ----+ 12/25/2024 8:18:03 AM SYS ART 12.50 + +---- ---+ +--+---+- ----+ 12/25/2024 8:18:03 AM SYS LUZMARIA 12.50 + +---- ---+ +--+---+- ----+ 12/25/2024 8:18:03 AM PUL ART 12.50 + (more content not included)... [facility] HISTORY PHYSICALon HISTORY PHYSICAL HNO ID: [id number] Author: CHEMA OREILLY MD Service: Cardiovascular Surgery Author Type: Physician Type: H&P Filed: 12/25/2024 07:22 Note Text: UPDATED [facility] PRE-CARDIAC CATHETERIZATION SERVICE DATE: 12/25/2024 SERVICE TIME: 7:20 AM PHYSICAL EXAM MUST BE COMPLETED ON ADMISSION The History and Physical (completed in the past 30 days) has been reviewed and the patient has been examined. The contents accurately reflect the patient's condition with the following additions or revisions since the HANDP was completed. Examination indicates no changes. Planned Procedure: Percutaneous Coronary Intervention (PCI) Primary Indication for Procedure: Angina Equivalent High Risk Features: History of Prior CABG: No History of Prior PCI: No Cardiomyopathy: No Anti-ischemic Meds in Past 2 Weeks: Beta blockers Ejection Fraction: 60% from Previous Echo Risk Appropriateness: Angina Class in Past 2 Weeks: Class III - Marked limitation of ordinary physical activity Cardiogenic Shock: NoHeart Failure: None Stress Test Performed: None EKG Assessment: Normal Family History of Premature CAD: Father, age 60 Evaluation for Preop Clearance: Non-Cardiac Surgery, Functional Capacity; >= 4 METS with symptoms, Surgical Risk; Low HISTORY OF BLEEDING: No This HANDP can be found in the attached. SIGNATURE: Chema Oreilly MD PATIENT NAME: Goran Gabriel DATE: December 25, 2024 TIME: 7:20 AM [facility] Basic metabolic 2000 panelon 12-21-2024 Anion gap [Moles/Vol] 14 mmol/L Normal 8-15 [facility] Comment on above: Order Comment: Speci men Type: BLOOD SPECIMENOrdering Facility: [facility] Address: [address] [place] [address] Performed By: #### 2 4321-2 ####[facility] JULIO MILLTOWNCLIA [id number] [place] [address] [place] Calcium [Mass/Vol] 9.3 mg/dL Normal 8.5-10.2 [facility] Comment on above: Order Comment: Speci men Type: BLOOD SPECIMENOrdering Facility: [facility] Address: [address] [place] [address] Performed By: #### 2 4321-2 ####[facility] JULIO MILLTOWNCLIA [id number] [place] [address] [place] Chloride [Moles/Vol] 101 mmol/L Normal 98-107 [facility] Comment on above: Order Comment: Speci men Type: BLOOD SPECIMENOrdering Facility: [facility] Address: [address] [place] [address] Performed By: #### 2 4321-2 ####[facility] JULIO MILLTOWNCLIA [id number] [place] [id number] [place] CO2 [Moles/Vol] 25 mmol/L Normal 22-30 [facility] Comment on above: Order Comment: Speci men Type: BLOOD SPECIMENOrdering Facility: [facility] Address: [address] [place] [address] Performed By: #### 2 4321-2 ####[facility] [id number] [place] [address] [place] Creatinine [Mass/Vol] 0.93 mg/dL Normal 0.73-1.22 [facility] Comment on above: Order Comment: Shannen jones Type: BLOOD SPECIMENOrdering Facility: [facility] Address: [address] [place] [address] Performed By: #### 2 4321-2 ####[facility] [id number] [place] [address] [place] Creatinine and Glomerular filtration rate.predicted panel (S/P/Bld) 84 mL/min/1.73m??? Normal >=60 [facility] Comment on above: Order Comment: Shannen jones Type: BLOOD SPECIMENOrdering Facility: [facility] Address: [address] [place] [address] Result Comment: Hamida mated Glomerular Filtration Rate (eGFR) is calculated using the 2020 CKD-EPI creatinine equation. This equation utilizes serum creatinine, sex, and age as parameters. The creatinine assay has traceable calibration to isotope dilution-mass spectrometry. Refer to KDIGO guidelines for clinical interpretation. In patients with unstable renal function, e.g. those with acute kidney injury, the eGFR may not accurately reflect actual GFR. Performed By: #### 2 4321-2 ####[facility] [id number] [place] [address] [place] Glucose [Mass/Vol] 116 mg/dL High 74-99 [facility] Comment on above: Order Comment: Shannen jones Type: BLOOD SPECIMENOrdering Facility: [facility] Address: [address] [place] [address] Result Comment: The [place] Diabetes Association (ADA) provides guidance for cutoff values for fasting glucose and random glucose. The ADA defines fasting as no caloric intake for at least 8 hours. Fasting plasma glucose results between 100 to 125 mg/dL indicate increased risk for diabetes (prediabetes). Fasting plasma glucose results greater than or equal to 126 mg/dL meet the criteria for diagnosis of diabetes. In the absence of unequivocal hyperglycemia, results should be confirmed by repeat testing. In a patient with classic symptoms of hyperglycemia or hyperglycemic crisis, random plasma glucose results greater than or equal to 200 mg/dL meet the criteria for diagnosis of diabetes. Reference: Standards of Medical Care in Diabetes 2016, [place] Diabetes Association. Diabetes Care. 2016.39(Suppl 1). Performed By: #### 2 4321-2 ####[facility] [id number] [place] [address] [place] Potassium [Moles/Vol] 4.2 mmol/L Normal 3.7-5.1 [facility] Comment on above: Order Comment: Speci karen Type: BLOOD SPECIMENOrdering Facility: [facility] Address: [address] [place] [address] Performed By: #### 2 4321-2 ####[facility] [id number] [place] [address] [place] Sodium [Moles/Vol] 140 mmol/L Normal 136-144 [facility] Comment on above: Order Comment: Speci karen Type: BLOOD SPECIMENOrdering Facility: [facility] Address: [address] [place] [address] Performed By: #### 2 4321-2 ####[facility] [id number] [place] [address] [place] Urea nitrogen [Mass/Vol] 22 mg/dL Normal 9-24 [facility] Comment on above: Order Comment: Speci men Type: BLOOD SPECIMENOrdering Facility: [facility] Address: [address] [place] [address] Performed By: #### 2 4321-2 ####[facility] [id number] [place] [address] [place] CBC panel Auto (Bld)on 12-21 Erythrocyte distribution width (RBC) [Ratio] 12.8 % Normal 11.5-15.0 [facility] Comment on above: Order Comment: Speci men Type: BLOOD SPECIMENOrdering Facility: [facility] Address: [address] [place] [address] Performed By: #### 5 8410-2 ####[facility] EDUARDANCMADAY [id number] [place] [address] [place] Hematocrit (Bld) [Volume fraction] 37.4 % Low 39.0-51.0 [facility] Comment on above: Order Comment: Speci men Type: BLOOD SPECIMENOrdering Facility: [facility] Address: [address] [place] [address] Performed By: #### 5 8410-2 ####[facility] [id number] [place] [address] [place] Hemoglobin (Bld) [Mass/Vol] 12.5 g/dL Low 13.0-17.0 [facility] Comment on above: Order Comment: Speci men Type: BLOOD SPECIMENOrdering Facility: [facility] Address: [address] [place] [address] Performed By: #### 5 8410-2 ####[facility] [id number] [place] [address] [place] MCH (RBC) [Entitic mass] 31.0 pg Normal 26.0-34.0 [facility] Comment on above: Order Comment: Speci men Type: BLOOD SPECIMENOrdering Facility: [facility] Address: [address] [place] [address] Performed By: #### 5 8410-2 ####[facility] [id number] [place] [address] [place] MCHC (RBC) [Mass/Vol] 33.4 g/dL Normal 30.5-36.0 [facility] Comment on above: Order Comment: Speci men Type: BLOOD SPECIMENOrdering Facility: [facility] Address: [address] [place], [place] [address] Performed By: #### 5 8410-2 ####[facility] MILLBENJIWNCLIA [id number] [place] [address] [place] MCV (RBC) [Entitic vol] 92.8 fL Normal 80.0-100.0 [facility] Comment on above: Order Comment: Speci men Type: BLOOD SPECIMENOrdering Facility: [facility] Address: [address] [place] [address] Performed By: #### 5 8410-2 ####[facility] [id number] [place] [address] [place] Nucleated RBC (Bld) [#/Vol] 10*3/uL Normal <0.01 [facility] Comment on above: Order Comment: Speci men Type: BLOOD SPECIMENOrdering Facility: [facility] Address: [address] [place] [address] Performed By: #### 5 8410-2 ####[facility] [id number] [place] [address] [place] Platelet mean volume (Bld) [Entitic vol] 10.7 fL Normal 9.0-12.7 [facility] Comment on above: Order Comment: Speci men Type: BLOOD SPECIMENOrdering Facility: [facility] Address: [address] [place] [address] Performed By: #### 5 8410-2 ####[facility]ITALWNCLIA [id number] [place] [address] [place] Platelets (Bld) [#/Vol] 213 10*3/uL Normal 150-400 [facility] Comment on above: Order Comment: Speci men Type: BLOOD SPECIMENOrdering Facility: [facility] Address: [address] [place] [address] Performed By: #### 5 8410-2 ####[facility] [id number] [place] [address] [place] RBC (Bld) [#/Vol] 4.03 10*6/uL Low 4.20-6.00 [facility] Comment on above: Order Comment: Speci men Type: BLOOD SPECIMENOrdering Facility: [facility] Address: [address] [place] [address] Performed By: #### 5 8410-2 ####[facility]ITALWNCLIA [id number] [place] [address] [place] WBC (Bld) [#/Vol] 9.52 10*3/uL Normal 3.70-11.00 [facility] Comment on above: Order Comment: Speci men Type: BLOOD SPECIMENOrdering Facility: [facility] Address: [address] [place] [address] Performed By: #### 5 8410-2 ####[facility]ITALWNCLIA [id number] [address] [place] CNOVon 12-18-2024 CNOV Office Visit (FAMPWS ) -- GORAN GABRIEL ([id number]) 1945 M Date Time Provider Department 12/18/24 1:00 PM WILLOW MARCELO FAMPWS During your visit today, we recorded the following information about you: Temperature Pulse Blood pressure Weight 98.4 degrees 78/minute 128/66 104.8 kg Willow Marcelo, [employer]ERSON[employer].TRAIN ANNOUNCER 12/18/2024 1:39 PM Signed This is a 79 year old male who presents today with: Patient presents with: URI: Cough and sinus congestion for 2 weeks HISTORY OF PRESENT ILLNESS: Goran Bria Gabriel is a 79 year old male. Patient presents with: URI: Cough and sinus congestion for 2 weeks Goran Gabriel is a 79-year-old male with a history of heart murmur, presenting with URI symptoms. Upper Respiratory Infection Symptoms: - Onset: Approximately two weeks ago. - Symptoms: - Sinus pressure, especially at night. - Nasal congestion, requiring nasal spray use. - Chest congestion. - Occasional diarrhea. - Fatigue and body aches. - Denies headache, sore throat, fever, or pain/pressure when swallowing. - Using cough syrup with minimal relief. Heart Murmur: - Scheduled for heart catheterization next Wednesday. - Previous catheterization on November 14 was unsuccessful due to calcium buildup. PAST MEDICAL HISTORY: PAST MEDICAL HISTORY Diagnosis Date Aortic stenosis mild BPH associated with nocturia Hyperglycemia Hyperlipidemia Hypertension IMPOTENCE, ORGANIC ORIGN Kidney congenitally absent, right L-S radiculopathy right leg, Stenosis on lumbar MRI Obesity Personal history of colonic polyps PAST SURGICAL HISTORY Procedure Laterality Date APPENDECTOMY COLONOSCOPY 10/05/2018 COLONOSCOPY FLX DX W/COLLJ SPEC WHEN PFRMD 09/05/13 normal colon - prior polyps 5 year follow up COLSC FLX W/RMVL OF TUMOR POLYP LESION SNARE TQ 01/20/2005 COLSC FLX W/RMVL OF TUMOR POLYP LESION SNARE TQ 06/13/10 polyps cecum and 45cm, tubular adenomas RPR 1ST INGUN HRNA AGE 5 YRS/> REDUCIBLE Hernia repair, inguinal bilateral RX RIB FRACTURE W BARREL DRUM CUTTER FIXATN TONSILLECTOMY PRIMARY/SECONDARY Tonsillectomy ALLERGIES Simvastatin MEDICATIONS Current Outpatient Medications Medication Sig Aspirin 81 mg tab Take 81 mg by mouth one time only. Pre cath metoprolol succinate ER (TOPROL XL) 25 mg 24 hr tablet Take 2 tablets by mouth once daily. ticagrelor (BRILINTA) 90 mg tablet Take 1 tablet by mouth two times a day. iv contrast (will be provided with radiology test) CTA ABD/PEL - No IV access, insert saline lock prior to the sedation, infusion, injection for imaging exam. Discontinue saline lock post exam. If Pt. has a central line or IVAD, may access for administration according to line specific nursing protocol. Once exam is complete flush line and de-access according to line specific nursing protocol in the CT contrast administration guidelines link. atorvastatin (LIPITOR) 20 mg tablet Take 1 tablet by mouth once daily. losartan (COZAAR) 100 mg tablet Take 1 tablet by mouth once daily. tamsulosin (FLOMAX) 0.4 mg Take 1 capsule by mouth daily at bedtime. hydroCHLOROthiazide 25 mg tablet Take 1 tablet by mouth once daily. predniSONE (DELTASONE) 10 mg tablet Take 10 mg by mouth as needed. fluticasone (FLONASE) 50 mcg/actuation nasal spray Use 1 [place] in each nostril once daily. Rinse mouth after use. hydroxychloroquine (PLAQUENIL) 200 mg tablet Take 200 mg by mouth once daily. No current facility-administered medications for this visit. FAMILY HISTORY Problem Relation Age of Onset Diabetes Father Social History Tobacco Use Smoking status: Never Smokeless tobacco: Never Vaping Use Vaping status: Never Used Substance Use Topics Alcohol use: Not Currently Drug use: Never REVIEW OF SYSTEMS Constitutional: (+) fatigue, (-) fever Head: (-) headache Ears/Nose/Mouth/Throat: (+) sinus pressure, (+) nasal congestion, (-) sore throat Respiratory: (+) cough, (+) sputum production, (+) chest congestion Gastrointestinal: (+) diarrhea Musculoskeletal: (+) myalgias EXAM: BP 128/66 Pulse 78 Temp 36.9 ?C (98.4 ?F) (Right Tympanic) Wt 104.8 kg (231 lb) SpO2 96% BMI 36.18 kg/m? PHYSICAL EXAM: GENERAL: NAD, alert and oriented SKIN: unremarkable, no rash or skin lesions. HEAD: normocephalic EARS: external ears normal, canals clear, TM's normal, left TM bulging. NOSE/SINUSES: Nares normal. Septum midline. Left side of nose inflamed and red OROPHARYNX: lips, mucosa, and tongue normal, good dentition. No oral lesions noted. Oral mucosa dry. NECK: Supple, no lymphadenopathy, normal thyroid, no carotid bruits. LUNGS: Clear to auscultation bilaterally, no wheezes/rhonchi/rales. HEART: Regular rate and rhythm, COLIN at sternal border. No ectopy. EXTREMITIES: Normal, No deformities, No skin discoloration, No edema. NEURO: Awake, alert and oriented x3, cranial nerves II-XII grossly intact, (more content not included)... Normal [facility] CNOVon 12-12-2024 CNOV Office Visit (UROLWS ) -- GORAN GABRIEL ([id number]) 1945 M Date Time Provider Department 12/12/24 2:30 PM STEPHON NEGRON UROLWS During your visit today, we recorded the following information about you: Temperature Pulse Respiration Blood pressure 97.8 degrees 96/minute 18/minute 120/68 Weight Height 104.8 kg 1.702 m Kayce Guillen LPN 12/13/2024 1:02 PM Signed Verified name and date of . CC Post Void Residual HPI: David kelly is here now for an appointment with Som Alberst APRN, AMY Procedure: Explained procedure to patient and verbalizes understanding. Performed a PVR. Patient urinated and instructed to empty bladder as much as possible just prior to having PVR done using bladder ultrasound scanner. Results of scan: 52 mL The patient tolerated the procedure well. Plan: Appointment with [place]. Stephon Negron PA-C 12/13/2024 1:02 PM Signed [facility] PATIENT CLINIC NOTE (M) Some elements copied from his previous note, which have been updated where appropriate, and all reflect current medical decision making from date of this visit. Note was generated by [employer] and edited as appropriate SERVICE DATE: December 13, 2024 NAME: Goran Gabriel GENDER: male CHIEF COMPLAINT: history of elevated PSA levels, presenting for follow-up. HISTORY OF PRESENT ILLNESS: The patient is a 79-year-old male with a history of elevated PSA levels, presenting for follow-up. Elevated PSA Levels: - Recent PSA level decreased from 0.86 to 0.66. - Last PSA test was 2 years ago. - CT scan showed a potential nodule on the left posterior side of the prostate. - Underwent cystoscopy at [facility], which revealed no abnormalities. - Denies having a prostate biopsy. - Continues to take Flomax and Cialis 5 mg. - Reports frequent nocturia. - Denies difficulty emptying the bladder. - Follow-up appointment with Dr. Saleh on . - Follow-up with Dr. Cerrato in nephrology. LABS: PSA (ng/mL) Date Value 12/08/2024 0.43 05/25/2024 0.66 05/19/2023 0.86 02/14/2020 0.85 02/17/2019 0.96 MEDICATIONS: Aspirin 81 mg tab Take 81 mg by mouth one time only. Pre cath metoprolol succinate ER (TOPROL XL) 25 mg 24 hr tablet Take 2 tablets by mouth once daily. ticagrelor (BRILINTA) 90 mg tablet Take 1 tablet by mouth two times a day. atorvastatin (LIPITOR) 20 mg tablet Take 1 tablet by mouth once daily. losartan (COZAAR) 100 mg tablet Take 1 tablet by mouth once daily. tamsulosin (FLOMAX) 0.4 mg Take 1 capsule by mouth daily at bedtime. hydroCHLOROthiazide 25 mg tablet Take 1 tablet by mouth once daily. predniSONE (DELTASONE) 10 mg tablet Take 10 mg by mouth as needed. fluticasone (FLONASE) 50 mcg/actuation nasal spray Use 1 [place] in each nostril once daily. Rinse mouth after use. hydroxychloroquine (PLAQUENIL) 200 mg tablet Take 200 mg by mouth once daily. iv contrast (will be provided with radiology test) CTA ABD/PEL - No IV access, insert saline lock prior to the sedation, infusion, injection for imaging exam. Discontinue saline lock post exam. If Pt. has a central line or IVAD, may access for administration according to line specific nursing protocol. Once exam is complete flush line and de-access according to line specific nursing protocol in the CT contrast administration guidelines link. PAST MEDICAL HISTORY: PAST MEDICAL HISTORY Diagnosis Date Aortic stenosis mild BPH associated with nocturia Hyperglycemia Hyperlipidemia Hypertension IMPOTENCE, ORGANIC ORIGN Kidney congenitally absent, right L-S radiculopathy right leg, Stenosis on lumbar MRI Obesity Personal history of colonic polyps REVIEW OF SYSTEMS: Genitourinary: (+) nocturia, (+) urinary frequency, (-) urinary retention PHYSICAL EXAMINATION: Physical Exam: General: Alert AND oriented, no acute distress Skin: Normal HEENT: Pupils equal, round. Oral cavity, oropharynx clear Neck: Supple, no mass Breast: Deferred Respiratory: Clear to auscultation, bilaterally Cardiovascular: Regular rate and rhythm, no murmurs, rubs, or gallops Abdomen: Soft, non-tender, non-distended, no masses palpable, no hepatosplenomegaly, normal bowel sounds Genitourinary: Deferred MSK: Back is non-tender Extremities: No clubbing, cyanosis, or edema PROBLEM LIST REVIEW: Yes LABS: Results for orders placed or performed in visit on 12/12/24 UA DIP, URINE (POC) Result Value Ref Range GLUCOSE UA (POCT) Negative Negative mg/dL BILIRUBIN UA (POCT) Negative Negative KETONE UA (POCT) Negative Negative mg/dL SPECIFIC GRAVITY UA (POCT) 1.020 1.005 - 1.030 HEMOGLOBIN/BLOOD UA (POCT) Negative Negative PH UA (POCT) 7.0 4.5 - 8.0 PROTEIN UA (POCT) Negative Negative mg/dL UROBILINOGEN UA (POCT) 0.2 Normal E.U./dL NITRITE UA (POCT) Negati (more content not included)... Normal [facility] UA DIP, URINE (POC)on 2024 BILIRUBIN UA (POCT) Negative Negative [facility] CLARITY UA (POCT) Clear [facility] COLOR UA (POCT) Yellow [facility] GLUCOSE UA (POCT) Negative Negative mg/dL [facility] Hemoglobin Ql (U) Negative Negative [facility] KETONE UA (POCT) Negative Negative mg/dL [facility] LEUKOCYTES UA (POCT) Negative Negative [facility] NITRITE UA (POCT) Negative Negative [facility] PH UA (POCT) 7 4.5 - 8.0 [facility] Protein Ql (U) Negative Negative mg/dL [facility] SPECIFIC GRAVITY UA (POCT) 1.02 1.005 - 1.030 [facility] UROBILINOGEN UA (POCT) 0.2 Agueda l E.U./dL [facility] Location:[facility], [address] , [place], [place], [id number] [place] [address] POINT OF CARE [facility] Free PSA [Mass/Vol]on 2024 Free PSA/Total PSA [Mass fraction] 26 % Normal [facility] Comment on above: Order Comment: Speci men Type: BLOOD SPECIMENOrdering Facility: [facility] Address: [address] [place] [address] Result Comment: Tota l and free PSA test methodology used is the Electrochemiluminescence Immunoassay by [employer]. Total or free PSA values by differing methodologies cannot be interchanged. The below table lists the probability of finding prostate cancer upon needle biopsy, for men 50 years or older and total PSA concentrations from 4.0-10.0 ng/mL. Results should be interpreted within the broader clinical context. Free PSA(%) 50-59 years 60-69 years >69 years <11 49.2% 57.5% 64.5% 11-18 26.9% 33.9% 40.8% 19-25 18.3% 23.9% 29.7% >25 9.1% 12.2% 15.8% Performed By: #### 1 0886-0 ####[facility] LABIA [id number] [place] [address] [place] Prostate specific Ag [Mass/Vol] 0.43 ng/mL Normal <2.60 [facility] Comment on above: Order Comment: Speci men Type: BLOOD SPECIMENOrdering Facility: [facility] Address: [address] [place] [address] Result Comment: Tota l PSA test methodology used is the Electrochemiluminescence Immunoassay by [employer]. Total PSA values by differing methodologies cannot be interchanged. Performed By: #### 1 0886-0 ####[facility] LABIA [id number] [address] [place] CNPOmaira 11-30-2024 CNPN Telephone (UROLWS) -- GORAN GABRIEL ([id number]) 1945 M Date Time Provider Department 11/30/24 STEPHON NEGRON During your visit today, we recorded the following information about you: Milena Beckett RN 11/30/2024 11:20 AM Signed Patient calling in stating that he received a call from [facility] suggesting that he have a PSA drawn VALERIE. Patient asking if you would like one done before his appointment on 12/12/24. SCOTT Contreras Laurie, MA 12/07/2024 3:40 PM Signed Left detailed message informing pt that order for PSA has been filed. Hoping he can have it completed prior to appt. Kimmy Goodwin MA Allergies As of Date: 11/30/2024 Noted Allergy Reaction SIMVASTATIN 04/23/2016 5 - Intolerance Comments: myalgias Date Reviewed: 11/14/2024 Reviewed by: Jyothi Pang, RT(R) - Fully Assessed Reason for Visit: Patient Question [2470] Prescriptions as of 12/08/2024 - Aspirin 81 mg tab Take 81 mg by mouth one time only. Pre cath - metoprolol succinate ER (TOPROL XL) 25 mg 24 hr tablet Take 2 tablets by mouth once daily. - ticagrelor (BRILINTA) 90 mg tablet Take 1 tablet by mouth two times a day. - iv contrast (will be provided with radiology test) CTA ABD/PEL - No IV access, insert saline lock prior to the sedation, infusion, injection for imaging exam. Discontinue saline lock post exam. If Pt. has a central line or IVAD, may access for administration according to line specific nursing protocol. Once exam is complete flush line and de-access according to line specific nursing protocol in the CT contrast administration guidelines link. - atorvastatin (LIPITOR) 20 mg tablet Take 1 tablet by mouth once daily. - losartan (COZAAR) 100 mg tablet Take 1 tablet by mouth once daily. - tamsulosin (FLOMAX) 0.4 mg Take 1 capsule by mouth daily at bedtime. - hydroCHLOROthiazide 25 mg tablet Take 1 tablet by mouth once daily. - predniSONE (DELTASONE) 10 mg tablet Take 10 mg by mouth as needed. - fluticasone (FLONASE) 50 mcg/actuation nasal spray Use 1 [place] in each nostril once daily. Rinse mouth after use. - hydroxychloroquine (PLAQUENIL) 200 mg tablet Take 200 mg by mouth once daily. 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] 05/21/2012 L-S radiculopathy [M54.17] 05/21/2012 05/14/2022 Left knee sprain [S83.92XA] 12/09/2012 09/26/2014 Abnormal glucose [R73.09] 02/13/2013 10/30/2020 Sciatica [M54.30] 02/13/2013 10/29/2016 Obesity [E66.9] 02/13/2013 05/14/2022 Lumbar stenosis [M48.061] 09/26/2014 Aortic valve stenosis [I35.0] 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, M19.*02/24/2017 10/30/2020 Left hip pain [M25.552] 02/24/2017 01/16/2019 Cellulitis of right hand [L03.113] 11/28/2018 12/01/2018 Neck pain [M54.2] 11/28/2018 01/16/2019 Acute deep vein thrombosis (DVT) of femoral vei*01/13/2019 10/30/2020 Acute deep vein thrombosis (DVT) of distal end *01/16/2019 02/17/2019 Varicose veins of both legs with edema [I83.893]01/16/2019 Screening for ischemic heart disease [Z13.6] 01/16/2019 05/14/2022 History of cellulitis [Z87.2] 01/16/2019 05/07/2021 Other proteinuria [R80.8] 07/21/2019 Prediabetes [R73.03] 05/07/2021 Inflammatory polyarthritis (HCC) [M06.4] 05/07/2021 Obesity, Class II, BMI 35-39.9 [E66.812] 08/04/2021 Aortic valve disorder [I35.9] 08/04/2021 05/14/2022 Cellulitis of foot [L03.119] 11/11/2022 05/26/2023 Hypertension [I10] 05/26/2023 05/26/2023 Diagnosed: 05/26/2023 Right inguinal pain [R10.31] 05/26/2023 05/26/2023 Diagnosed: 05/26/2023 Encounter Status:Closed by KAYCE GUILLEN on 12/08/24 [facility] CNPOmaira 11-23-2024 CNPN Telephone (FAMPWS) -- GORAN GABRIEL ([id number]) 1945 Date Time Provider Department 11/23/24 MIGUELANGEL COURTNEY [facility] During your visit today, we recorded the following information about you: Miguelangel Courtney MD 11/23/2024 1:54 PM Signed Let him know his scans done by cardiology showed a nodule near his prostate. Radiology recommends we check psa and follow up on it. Last psa was just one in May. Lets have him follow up with urology. He sees Stephon Negron Regularly Krystin Lloyd RN 11/23/2024 2:05 PM Signed Called and left a voicemail for the Patient to call back and ask for a nurse to receive the providers message. SCOTT Rubio Michelle, RN 11/24/2024 8:36 AM Signed PATIENT NOTIFIED OF INFORMATION Allergies As of Date: 11/23/2024 Noted Allergy Reaction SIMVASTATIN 04/23/2016 5 - Intolerance Comments: myalgias Date Reviewed: 11/14/2024 Reviewed by: Jyothi Pang RT(R) - Fully Assessed Reason for Visit: Results [95] Primary Visit Diagnosis:Abnormal CT of the abdomen [R93.5] Other Visit Diagnosis:Prostate nodule [N40.2] Order(s):CONSULT TO UROLOGY [9047] Order #: [id number]: 1 FUTURE Prescriptions as of 11/24/2024 - Aspirin 81 mg tab Take 81 mg by mouth one time only. Pre cath - metoprolol succinate ER (TOPROL XL) 25 mg 24 hr tablet Take 2 tablets by mouth once daily. - ticagrelor (BRILINTA) 90 mg tablet Take 1 tablet by mouth two times a day. - iv contrast (will be provided with radiology test) CTA ABD/PEL - No IV access, insert saline lock prior to the sedation, infusion, injection for imaging exam. Discontinue saline lock post exam. If Pt. has a central line or IVAD, may access for administration according to line specific nursing protocol. Once exam is complete flush line and de-access according to line specific nursing protocol in the CT contrast administration guidelines link. - atorvastatin (LIPITOR) 20 mg tablet Take 1 tablet by mouth once daily. - losartan (COZAAR) 100 mg tablet Take 1 tablet by mouth once daily. - tamsulosin (FLOMAX) 0.4 mg Take 1 capsule by mouth daily at bedtime. - hydroCHLOROthiazide 25 mg tablet Take 1 tablet by mouth once daily. - predniSONE (DELTASONE) 10 mg tablet Take 10 mg by mouth as needed. - fluticasone (FLONASE) 50 mcg/actuation nasal spray Use 1 [place] in each nostril once daily. Rinse mouth after use. - hydroxychloroquine (PLAQUENIL) 200 mg tablet Take 200 mg by mouth once daily. 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] 05/21/2012 L-S radiculopathy [M54.17] 05/21/2012 05/14/2022 Left knee sprain [S83.92XA] 12/09/2012 09/26/2014 Abnormal glucose [R73.09] 02/13/2013 10/30/2020 Sciatica [M54.30] 02/13/2013 10/29/2016 Obesity [E66.9] 02/13/2013 05/14/2022 Lumbar stenosis [M48.061] 09/26/2014 Aortic valve stenosis [I35.0] 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, M19.*02/24/2017 10/30/2020 Left hip pain [M25.552] 02/24/2017 01/16/2019 Cellulitis of right hand [L03.113] 11/28/2018 12/01/2018 Neck pain [M54.2] 11/28/2018 01/16/2019 Acute deep vein thrombosis (DVT) of femoral vei*01/13/2019 10/30/2020 Acute deep vein thrombosis (DVT) of distal end *01/16/2019 02/17/2019 Varicose veins of both legs with edema [I83.893]01/16/2019 Screening for ischemic heart disease [Z13.6] 01/16/2019 05/14/2022 History of cellulitis [Z87.2] 01/16/2019 05/07/2021 Other proteinuria [R80.8] 07/21/2019 Prediabetes [R73.03] 05/07/2021 Inflammatory polyarthritis (HCC) [M06.4] 05/07/2021 Obesity, Class II, BMI 35-39.9 [E66.812] 08/04/2021 Aortic valve disorder [I35.9] 08/04/2021 05/14/2022 Cellulitis of foot [L03.119] 11/11/2022 05/26/2023 Hypertension [I10] 05/26/2023 05/26/2023 Diagnosed: 05/26/2023 Right inguinal pain [R10.31] 05/26/2023 05/26/2023 Diagnosed: 05/26/2023 Encounter Status:Closed by MAXWELL MAX on 11/24/24 [facility] Ricky 11-16-2024 ERIKA Telephone (AKCAT) -- GORAN GABRIEL ([id number]) 1945 M Date Time Provider Department 11/16/24 SAVANNAH OGDEN During your visit today, we recorded the following information about you: Yell MelvinsamKirsten 11/16/2024 8:01 AM Signed Schedule Direct PCI on 12/25/[address] Afia Luevano, Dorcas Newby RN 11/16/2024 10:12 AM Signed Goran Gabriel agreeable to date and procedure. You have been scheduled for a Direct Percutaneous Coronary Intervention (PCI) on Wednesday12/25/[address] Oreilly. Instructions: Your arrival time will be between 7-9 am. Irish Moss Bleacher will call you on 12/22/24 between 2-5 pm to notify you of your assigned arrival time. You are to report to the Heart AND Vascular Entrance at [facility] at the assigned time. You may have your usual food the day prior to heart cath. Please increase your water intake the day prior to your heart cath. After midnight you should not eat or drink, but you may have sips of water if you are thirsty. With a sip of water on 12/25/24 morning take: Aspirin 81mg, Brilinta, hydrochlorothiazide, losartan, metoprolol Labs to be done by 12/22/24 at [facility] Locations: [facility], [facility], etc. Health and Wellness Centers: [place], [place], or [place] Please plan to stay overnight for observation. You must have someone drive you home when you are released from the hospital and you are not to be alone the first evening. Any questions or concerns please contact our office at [phone] (opt #3 Nursing). 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 Pre cath - metoprolol succinate ER (TOPROL XL) 25 mg 24 hr tablet Take 2 tablets by mouth once daily. - ticagrelor (BRILINTA) 90 mg tablet Take 1 tablet by mouth two times a day. - iv contrast (will be provided with radiology test) CTA ABD/PEL - No IV access, insert saline lock prior to the sedation, infusion, injection for imaging exam. Discontinue saline lock post exam. If Pt. has a central line or IVAD, may access for administration according to line specific nursing protocol. Once exam is complete flush line and de-access according to line specific nursing protocol in the CT contrast administration guidelines link. - atorvastatin (LIPITOR) 20 mg tablet Take 1 tablet by mouth once daily. - losartan (COZAAR) 100 mg tablet Take 1 tablet by mouth once daily. - tamsulosin (FLOMAX) 0.4 mg Take 1 capsule by mouth daily at bedtime. - hydroCHLOROthiazide 25 mg tablet Take 1 tablet by mouth once daily. - predniSONE (DELTASONE) 10 mg tablet Take 10 mg by mouth as needed. - fluticasone (FLONASE) 50 mcg/actuation nasal spray Use 1 [place] in each nostril once daily. Rinse mouth after use. - hydroxychloroquine (PLAQUENIL) 200 mg tablet Take 200 mg by mouth once daily. Facility-Administered Medications as of 11/16/2024 - perflutren lipid microspheres 1.3 mL in NaCl (PF) 0.9% 10 mL injection (DEFINITY) - sodium chloride 0.9 % (flush) 10 mL (BD POSIFLUSH) - perflutren lipid microspheres 1.3 mL in NaCl (PF) 0.9% 10 mL injection (DEFINITY) - sodium chloride 0.9 % (flush) 10 mL (BD POSIFLUSH) Problem List As Of Date 11/16/2024 Noted Resolved Hyperlipidemia [E78.5] Essential hypertension, benign [I10] Personal history of colonic polyps [Z86.0100] IMPOTENCE, ORGANIC ORIGN [N52.9] 06/09/2006 Pain in joint, shoulder region [M25.519] 06/21/2006 09/26/2014 Kidney congenitally absent, 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] 05/21/2012 L-S radiculopathy [M54.17] 05/21/2012 05/14/2022 Left knee sprain [S83.92XA] 12/09/2012 09/26/2014 Abnormal glucose [R73.09] 02/13/2013 10/30/2020 Sciatica [M54.30] 02/13/2013 10/29/2016 Obesity [E66.9] 02/13/2013 05/14/2022 Lumbar stenosis [M48.061] 09/26/2014 Aortic valve stenosis [I35.0] 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 [facility] CNPNon 11-15-2024 CNPN Telephone (GENLogFireS) -- GORAN GABRIEL ([id number]) 1945 M Date Time Provider Department 5/7/25 DORCAS BENNETT During your visit today, we recorded the following information about you: Amara Meraz MA 11/15/2024 9:24 AM Signed Patient and spouse called in regarding colonoscopy that is scheduled on 11/23/2024. They thought the procedure was going to be cancelled because the patient needed to have an ECHO, but it still is showing on MyChart. Patient had ECHO completed yesterday and they would like to proceed with colonoscopy on 11/23/2024 as originally planned. Please reach out to Lauren, spouse at [phone]. Rashard Corrales 11/15/2024 11:14 AM Signed Spoke with patient and , wantd to hve this done in julio explained we do not have anestheisa and explained the difference between aneshtesia and moderate sedation. Allergies As of Date: 11/15/2024 Noted Allergy Reaction SIMVASTATIN 04/23/2016 5 - Intolerance Comments: myalgias Date Reviewed: 11/14/2024 Reviewed by: Jyothi Pang, RT(R) - Fully Assessed Reason for Visit: Patient Update [1234] Prescriptions as of 11/15/2024 - Aspirin 81 mg tab Take 81 mg by mouth one time only. Pre cath - metoprolol succinate ER (TOPROL XL) 25 mg 24 hr tablet Take 2 tablets by mouth once daily. - ticagrelor (BRILINTA) 90 mg tablet Take 1 tablet by mouth two times a day. - iv contrast (will be provided with radiology test) CTA ABD/PEL - No IV access, insert saline lock prior to the sedation, infusion, injection for imaging exam. Discontinue saline lock post exam. If Pt. has a central line or IVAD, may access for administration according to line specific nursing protocol. Once exam is complete flush line and de-access according to line specific nursing protocol in the CT contrast administration guidelines link. - atorvastatin (LIPITOR) 20 mg tablet Take 1 tablet by mouth once daily. - losartan (COZAAR) 100 mg tablet Take 1 tablet by mouth once daily. - tamsulosin (FLOMAX) 0.4 mg Take 1 capsule by mouth daily at bedtime. - hydroCHLOROthiazide 25 mg tablet Take 1 tablet by mouth once daily. - predniSONE (DELTASONE) 10 mg tablet Take 10 mg by mouth as needed. - fluticasone (FLONASE) 50 mcg/actuation nasal spray Use 1 [place] in each nostril once daily. Rinse mouth after use. - hydroxychloroquine (PLAQUENIL) 200 mg tablet Take 200 mg by mouth once daily. Facility-Administered Medications as of 11/15/2024 - perflutren lipid microspheres 1.3 mL in NaCl (PF) 0.9% 10 mL injection (DEFINITY) - sodium chloride 0.9 % (flush) 10 mL (BD POSIFLUSH) - perflutren lipid microspheres 1.3 mL in NaCl (PF) 0.9% 10 mL injection (DEFINITY) - sodium chloride 0.9 % (flush) 10 mL (BD POSIFLUSH) Problem List As Of Date 11/15/2024 Noted Resolved Hyperlipidemia [E78.5] Essential hypertension, benign [I10] Personal history of colonic polyps [Z86.0100] IMPOTENCE, ORGANIC ORIGN [N52.9] 06/09/2006 Pain in joint, shoulder region [M25.519] 06/21/2006 09/26/2014 Kidney congenitally absent, 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] 05/21/2012 L-S radiculopathy [M54.17] 05/21/2012 05/14/2022 Left knee sprain [S83.92XA] 12/09/2012 09/26/2014 Abnormal glucose [R73.09] 02/13/2013 10/30/2020 Sciatica [M54.30] 02/13/2013 10/29/2016 Obesity [E66.9] 02/13/2013 05/14/2022 Lumbar stenosis [M48.061] 09/26/2014 Aortic valve stenosis [I35.0] 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, M19.*02/24/2017 10/30/2020 Left hip pain [M25.552] 02/24/2017 01/16/2019 Cellulitis of right hand [L03.113] 11/28/2018 12/01/2018 Neck pain [M54.2] 11/28/2018 01/16/2019 Acute deep vein thrombosis (DVT) of femoral vei*01/13/2019 10/30/2020 Acute deep vein thrombosis (DVT) of distal end *01/16/2019 02/17/2019 Varicose veins of both legs with edema [I83.893]01/16/2019 Screening for ischemic heart disease [Z13.6] 01/16/2019 05/14/2022 History of cellulitis [Z87.2] 01/16/2019 05/07/2021 Other proteinuria [R80.8] 07/21/2019 Prediabetes [R73.03] 05/07/2021 Inflammatory polyarthritis (HCC) [M06.4] 05/07/2021 Obesity, Class II, BMI 35-39.9 [E66.812] 08/04/2021 Aortic valve disorder [I35.9] 08/04/2021 05/14/2022 Cellulitis of foot [L03.119] 11/11/2022 05/26/2023 Hypertension [I10] 05/26/2023 05/26/2023 Diagnosed: 05/26/2023 Right inguinal pain [R10.31] 05/26/2023 05/26/2023 Diagnosed: 05/26/2023 Encounter Status:Closed by AMARA MERAZ on 11/15/24 [facility] CARD CATH INTERVENTon 2024 CARD CATH INTERVENT Site Id: [facility] Lab #: Study Date: 11/14/2024 Start Time: End Time: Name Duty Chema Oreilly MD PROC MD 1 Shania Mitchell RT PROC SCRUB 1 Trina Cote RN PROC SCRUB 2 Krystin Urbina RT PROC CIRC 1 Neftali Willard RN PROC CIRC 2 Marnie Vieira RN PROC RECORD 1 + + PATIENT INFORMATION + + Name: MR. GORAN GABRIEL [facility] : 1945 Age: 79 years Gender: M + ---+ CLINICAL HISTORY/INDICATIONS + ---+ Dyspnea. Procedural Status: Elective CAD Presentation: Symptoms Likely to be Ischemic Angina Classification (within 2 weeks): CCS II No Heart Failure Clinical History: 79 male with exertional shortness of breath for coronary angiography and right heart cath + + DIAGNOSTIC FINDINGS + + Coronary Anatomy: Right Dominant Injection Site(s): Coronary Artery LMT: The LMT is normal. LAD: The LAD is normal. LCX: The Circumflex is normal. RAMUS: Ramus Status: Not Applicable. RCA: The RCA has severe diffuse disease. The distal RCA is narrowed 90 % - severely calcified. + + IMPRESSION/PLAN + + Impression:1. Normal LV size and function . 2. Severe distal RCA lesion . 3. Normal Right heart hemodynamic . Recommended Treatment: PCI. Plan: PTCA RCA. Procedure Narrative: Lesion 1: RCA Distal Guide 1: 6FR JL 4.0. + + HEMODYNAMICS - XPER + + + +------+- ----+-------+------+------ +------+ Measurement Name Sys Marisabel End Marisabel Mean A Wave V Wave + +------+- ----+-------+------+------ +------+ AO 147.00 55.00 82.00 + +------+- ----+-------+------+------ +------+ AO 74.00 42.00 52.00 + +------+- ----+-------+------+------ +------+ AO 85.00 47.00 63.00 + +------+- ----+-------+------+------ +------+ RA 11.00 12.00 14.00 + +------+- ----+-------+------+------ +------+ RV 40.00 5.00 11.00 + +------+- ----+-------+------+------ +------+ PA 39.00 10.00 24.00 + +------+- ----+-------+------+------ +------+ PW 23.00 22.00 36.00 + +------+- ----+-------+------+------ +------+ AO 135.00 68.00 95.00 + +------+- ----+-------+------+------ +------+ LV 163.00 3.00 22.00 + +------+- ----+-------+------+------ +------+ LVp 164.00 7.00 27.00 + +------+- ----+-------+------+------ +------+ AOp 151.00 51.00 96.00 + +------+- ----+-------+------+------ +------+ AO 153.00 53.00 99.00 + +------+- ----+-------+------+------ +------+ AO 142.00 81.00 110.00 + +------+- ----+-------+------+------ +------+ Oximetry: + +----+ +-----+---+-- ---+ Time Site O2 Saturation O2 PO2 HB + +----+ +-----+---+-- ---+ 11/14/2024 9:56:50 AM AO 98.00 17.73 13.30 + +----+ +-----+---+-- ---+ 11/14/2024 9:56:50 AM RA 75.00 13.57 13.30 + +----+ +-----+---+-- ---+ 11/14/2024 9:56:50 AM AO 98.00 17.73 13.30 + +----+ +-----+---+-- ---+ 11/14/2024 9:56:50 AM PA 70.00 12.66 13.30 + +----+ +-----+---+-- ---+ Cardiac Outputs: +--------+-----+ MORRO SV 79.80 +--------+-----+ MORRO CO 6.86 +--------+-----+ MORRO CI 3.20 +--------+-----+ MORRO HR +--------+-----+ MAN CO +--------+-----+ MAN CI +--------+-----+ TD SV 77.40 +--------+-----+ TD CO 6.66 +--------+-----+ TD CI 3.10 +--------+-----+ ANGIO SV +--------+-----+ ANGIO CO +--------+-----+ ANGIO CI +--------+-----+ + ---------+ ADVERSE OUTCOME(s)/COMPLICATION(s) + ---------+ None + -----+ PROCEDURAL & TECHNICAL DETAILS + -----+ Date Time Description 11/14/2024 12:00:00 AM Left Heart Cath 11/14/2024 12:00:00 AM Right Heart Cath ADVERSE OUTCOME(s)/COMPLICATION(s) None Recommended Treatment: Percutaneous Interventions: Lesion Complications RCA Distal None Lesion Pre Stenosis Post Stenosis Pre Jose Antonio Score Post Jose Antonio Score RCA Distal 90.00 90 3 3 *MEDICAL HISTORY* CAD Presentation: Symptoms Likely to be Ischemic Angina Classification (within 2 weeks): CCS II No Heart Failure Family History of CAD: Yes Congenital Heart Disease: No Coronary Artery Disease: No Dyslipidemia: Yes Hypertension: Yes Myocarditis: No Pericarditis: No Synco (more content not included)... [facility] CTA ABD/PELV W IVCONon 11-14 CTA ABD/PELV W IVCON * * *Final Report* * * DATE OF EXAM: Nov 14 2024 8:38AM [facility] 0311 - CTA ABD/PELV W IVCON / PROCEDURE REASON: Encounter for preprocedural cardiovascular examination * * * * Physician Interpretation * * * * CTA Aorta - Chest, Abdomen, and Pelvis: 11/14/2024 8:38 AM. Comparison: CT scan of the chest from May 27, 2016. Clinical History: 79 years old Male with high-risk aortic valve disease, currently being evaluated for further treatment options. Indication: There is clinical need to define anatomy of the aortic root/annulus as well as the aorta/ileofemoral vessels. Technique: Multi-detector CT technology was employed (Siemens Definition Flash dual source scanner). Helical retrospectively gated scanning was performed of the chest, limited to the aortic root for 3-D and dynamic 4-D assessment, following the IV administration of contrast material. Subsequently, non-gated spiral imaging with high-pitch acquisition (Flash-mode) (3 mm slice reconstruction) of the chest, abdomen, and pelvis was performed without additional IV administration of contrast material. IV: 100 ml of Omnipaque 350 CT Radiation dose: Integrated Dose-length product (DLP) for this visit = 2597 mGy*cm. CT Dose Reduction Employed: Automated exposure control (AEC) and iterative reconstruction was used. For optimization of anatomic evaluation, multiplanar reconstruction, maximum intensity projections, and advanced 3-D offline post-processing were performed on a dedicated stand-alone workstation under the direct supervision of the interpreting physician. RESULT: Potential study limitations: None. CHEST: The chest wall is within normal limits. The mediastinum is unremarkable. There is no abnormal lymphadenopathy noted in the axillae, mediastinum, and zoran. There is a small amount of pericardial fluid. The pulmonary arteries are normal. The lung windows: There is an 8 mm oval calcified nodule in the left upper lobe seen best on series 3 image 104. This is stable and unchanged from May 27, 2016. There is elevation of the right hemidiaphragm with compression atelectasis and volume loss in the medial segment of the right middle lobe and a portion of the anterior aspect of the inferior right lower as it abuts the hemidiaphragm. The central airways are patent. There is no abnormal additional pulmonary parenchymal mass, additional infiltrate, or pleural effusion. The cardiac chambers have normal atrioventricular and ventriculoarterial concordance, and systemic and pulmonary venous return. The cardiac chamber sizes are notable for moderate left atrial enlargement. The coronary arteries have normal origins and courses. There are moderate coronary calcifications identified, though this study was not optimized for coronary artery evaluation. The left ventricle is normal in size and shape, . There is mild to moderate left ventricular hypertrophy: basal anteroseptum (1.4 cm), and basal inferoseptum (1.4 cm). VASCULAR WITH ADVANCED 3-D OFFLINE POST-PROCESSING: Dedicated 4-D dynamic imaging of the aortic root: The aortic valve is trileaflet. The leaflets are moderate to severely calcified. The aortic valve calcium score is calculated at 2188 Agatston units. The aortic root is ectatic, and is mildly calcified. The sinotubular junction is preserved. Aortic valve orifice area = 1.8 cm2 Aortic annulus diameter: 3.0 x 2.4 cm, mean diameter 2.6 cm Aortic annulus circumference: 8.5 cm Aortic annulus cross-sectional area: 513 mm2 Coronary Sinus measurements: a. Noncoronary sinus 3.6 cm b. Right coronary sinus 3.7 cm c. Left coronary sinus 4.1 cm Coronary heights: a. Annulus-RCA distance: 1.7 cm b. Annulus-LM distance: 1.9 cm Annulus angulations: GIBRALTARIAN 7 caudal 5 The ascending thoracic aorta and aortic arch is normal in course, caliber, and contour. The arch vessel branching pattern demonstrates a common trunk of the innominate and left common carotid artery. The left vertebral artery also arises directly off the aortic arch between right brachiocephalic artery and the left subclavian artery. There is a proximal calcific plaque in the left vertebral artery causing 50% origin stenosis. The rest of the great vessel origins show no stenosis. There is calcific plaque at the origin of the right subclavian artery creating an approximate 50% diameter stenosis.2 The descending thoracic aorta is normal in course, caliber, and contour. The abdomina aorta is normal in course, caliber, and contour. The celiac artery, SMA, and ABILIO are patent. The bilateral single renal arteries are patent. The pelvic arteries are tortuous, but otherwise normal in caliber, and contour. The common femoral and superficial femoral arteries are normal in caliber, and contour. The minimal luminal caliber throughout = 0.9 cm. There is no acute aortic pathology, such as dissection, intramural hematoma, or con (more content not included)... [facility] CTA CHEST (GATED) WO/W IVCON on 11-14-2024 CTA CHEST (GATED) WO/W IVCON * * *Final Report* * * DATE OF EXAM: Nov 14 2024 8:38AM [facility] 0126 - CTA CHEST (GATED) WO/W IVCON / PROCEDURE REASON: Encounter for preprocedural cardiovascular examination * * * * Physician Interpretation * * * * CTA Aorta - Chest, Abdomen, and Pelvis: 11/14/2024 8:38 AM. Comparison: CT scan of the chest from May 27, 2016. Clinical History: 79 years old Male with high-risk aortic valve disease, currently being evaluated for further treatment options. Indication: There is clinical need to define anatomy of the aortic root/annulus as well as the aorta/ileofemoral vessels. Technique: Multi-detector CT technology was employed (Siemens Definition Flash dual source scanner). Helical retrospectively gated scanning was performed of the chest, limited to the aortic root for 3-D and dynamic 4-D assessment, following the IV administration of contrast material. Subsequently, non-gated spiral imaging with high-pitch acquisition (Flash-mode) (3 mm slice reconstruction) of the chest, abdomen, and pelvis was performed without additional IV administration of contrast material. IV: 100 ml of Omnipaque 350 CT Radiation dose: Integrated Dose-length product (DLP) for this visit = 2597 mGy*cm. CT Dose Reduction Employed: Automated exposure control (AEC) and iterative reconstruction was used. For optimization of anatomic evaluation, multiplanar reconstruction, maximum intensity projections, and advanced 3-D offline post-processing were performed on a dedicated stand-alone workstation under the direct supervision of the interpreting physician. RESULT: Potential study limitations: None. CHEST: The chest wall is within normal limits. The mediastinum is unremarkable. There is no abnormal lymphadenopathy noted in the axillae, mediastinum, and zoran. There is a small amount of pericardial fluid. The pulmonary arteries are normal. The lung windows: There is an 8 mm oval calcified nodule in the left upper lobe seen best on series 3 image 104. This is stable and unchanged from May 27, 2016. There is elevation of the right hemidiaphragm with compression atelectasis and volume loss in the medial segment of the right middle lobe and a portion of the anterior aspect of the inferior right lower as it abuts the hemidiaphragm. The central airways are patent. There is no abnormal additional pulmonary parenchymal mass, additional infiltrate, or pleural effusion. The cardiac chambers have normal atrioventricular and ventriculoarterial concordance, and systemic and pulmonary venous return. The cardiac chamber sizes are notable for moderate left atrial enlargement. The coronary arteries have normal origins and courses. There are moderate coronary calcifications identified, though this study was not optimized for coronary artery evaluation. The left ventricle is normal in size and shape, . There is mild to moderate left ventricular hypertrophy: basal anteroseptum (1.4 cm), and basal inferoseptum (1.4 cm). VASCULAR WITH ADVANCED 3-D OFFLINE POST-PROCESSING: Dedicated 4-D dynamic imaging of the aortic root: The aortic valve is trileaflet. The leaflets are moderate to severely calcified. The aortic valve calcium score is calculated at 2188 Agatston units. The aortic root is ectatic, and is mildly calcified. The sinotubular junction is preserved. Aortic valve orifice area = 1.8 cm2 Aortic annulus diameter: 3.0 x 2.4 cm, mean diameter 2.6 cm Aortic annulus circumference: 8.5 cm Aortic annulus cross-sectional area: 513 mm2 Coronary Sinus measurements: a. Noncoronary sinus 3.6 cm b. Right coronary sinus 3.7 cm c. Left coronary sinus 4.1 cm Coronary heights: a. Annulus-RCA distance: 1.7 cm b. Annulus-LM distance: 1.9 cm Annulus angulations: GIBRALTARIAN 7 caudal 5 The ascending thoracic aorta and aortic arch is normal in course, caliber, and contour. The arch vessel branching pattern demonstrates a common trunk of the innominate and left common carotid artery. The left vertebral artery also arises directly off the aortic arch between right brachiocephalic artery and the left subclavian artery. There is a proximal calcific plaque in the left vertebral artery causing 50% origin stenosis. The rest of the great vessel origins show no stenosis. There is calcific plaque at the origin of the right subclavian artery creating an approximate 50% diameter stenosis.2 The descending thoracic aorta is normal in course, caliber, and contour. The abdomina aorta is normal in course, caliber, and contour. The celiac artery, SMA, and ABLIIO are patent. The bilateral single renal arteries are patent. The pelvic arteries are tortuous, but otherwise normal in caliber, and contour. The common femoral and superficial femoral arteries are normal in caliber, and contour. The minimal luminal caliber throughout = 0.9 cm. There is no acute aortic pathology, such as dissection, intramural hematoma (more content not included)... [facility] ECHOon 11-14-2024 Echocardiography Echocardiography Rep ort: Transthoracic Echo [facility] Date of service: 11/14/2024 9:18:09 AM [facility] Ordering physician: CHEMA OREILLY Indication: Routine surveillance of moderate or severe valvular stenosis (>1yr) Technologist: Nyla Denis [facility] Interpreting physician: Adams Kumar MD PATIENT: Name: MR. GORAN GABRIEL : 1945 Age: 79 years Gender: M History of valvular heart disease. Primary rhythm: sinus. Height: 170.20 cm BSA: 2.22 m Weight: 104.33 kg BMI: 36.0 kg/m Heart rate 85 bpm Blood pressure 127/76 mmHg Technically difficult exam due to body habitus. Color Doppler was utilized to interrogate the cardiac valves assessed and spectral Doppler was utilized to determine the flow velocities and pressure gradients reported in this exam. MEASUREMENTS: Value Indexed Normal Max aortic dimension 4.3 cm Ao < 3.8 Left atrium diameter 4.8 cm (2D) Left atrial volume 50 ml (biplane A-L) 23 ml/m Alexa <= 34 LV ID (diastole) 4.8 cm (2D) 2.16 cm/m LV ID (systole) 3.4 cm (2D) 1.55 cm/m IVS, leaflet tips 1.2 cm (2D) Posterior wall thickness 1.1 cm (2D) Left ventricular mass 210 g (2D) 95 g/m LVOT stroke volume 78 ml 36 ml/m Ejection Fraction 60 % (visual est.) EF > 52 FINDINGS: LEFT VENTRICLE The left ventricle is normal in size. Left ventricular systolic function is normal globally. Normal left ventricular diastolic function. Mitral annular lateral E/e': 13.9. Mitral annular septal E/e': 18.0. Wall Motion: All scored segments are normal. RIGHT VENTRICLE The right ventricle is dilated. Right ventricular systolic function is normal. RV systolic tissue Doppler velocity is 17.3 cm/s. Tricuspid annular displacement is 2.3 cm. Estimated right ventricular systolic pressure is 39 mmHg consistent with mild pulmonary hypertension. Estimated right atrial pressure is 8 mmHg based on IVC assessment. LEFT ATRIUM The left atrial cavity is normal in size. RIGHT ATRIUM The right atrial cavity is normal in size. Inferior Vena Cava: The inferior vena cava appears dilated measuring 2.3 cm. The vessel decreases greater than 50 percent with inspiration. MITRAL VALVE The mitral valve leaflets are structurally normal. There is trace (trace - 1+) mitral valve regurgitation. The pressure half time is 40 msec. The peak mitral E/A ratio is 0.94. The mitral flow deceleration time is 137 msec. TRICUSPID VALVE The tricuspid valve leaflets are structurally normal. There is trace tricuspid valve regurgitation. AORTIC VALVE There is moderate aortic valve stenosis caused by calcified valve. There is trace aortic valve regurgitation. Tricuspid aortic valve. There is moderate thickening. There is moderate calcification. The peak gradient is 33 mmHg (peak velocity = 288.6 cm/s). The mean gradient is 16 mmHg. The LVOT mean velocity is 74.1 cm/s. The LVOT diameter is 2.0 cm. The aortic VTI is 61.4 cm. The mean velocity in the aortic valve is 190.8 cm/s. The dimensionless valve index is 0.40. AV area is 1.27 cm (0.57 cm /m ) by continuity, VTI. The LVOT stroke volume index is 36 ml/m . PULMONIC VALVE The pulmonic valve cusps are structurally normal. There is no pulmonic valve regurgitation. AORTA The visualized aorta is dilated. Measurements - Sinus: 3.6 cm. Mid ascending aorta 4.3 cm. PULMONARY ARTERIES The pulmonary arteries are unseen or not interrogated. INTERATRIAL SEPTUM The interatrial septum is unseen or not interrogated. PERICARDIUM There is no pericardial effusion. There is an epicardial fat pad. CONCLUSIONS: - Technically difficult exam due to body habitus. - Exam indication: Routine surveillance of moderate or severe valvular stenosis (>1yr) - The left ventricle is normal in size. Left ventricular systolic function is normal. EF = 60 5% (visual est.) Normal left ventricular diastolic function. - The right ventricle is dilated. Right ventricular systolic function is normal. - The visualized aorta is dilated with a maximal dimension of 4.3 cm. - Tricuspid aortic valve. There is moderate aortic valve stenosis caused by calcified valve. AV area is 1.27 cm (0.57 cm /m ) by continuity, VTI. The peak gradient is 33 mmHg, the mean gradient is 16 mmHg and the dimensionless valve index is 0.40. - Estimated right ventricular systolic pressure is 39 mmHg consistent with mild pulmonary hypertension. Estimated right atrial pressure is 8 mmHg based on IVC assessment. - Exam was compared with the prior echocardiographic exam performed on 10/26/2023 (Julio). RVSP is mildly elevated today, otherwise no major changes. * * * Final * * * CC [employer] : [id number] [facility] HISTORY PHYSICALon HISTORY PHYSICAL HNO ID: [id number] Author: CHEMA OREILLY MD Service: Cardiovascular Surgery Author Type: Physician Type: H&P Filed: 11/14/2024 08:20 Note Text: UPDATED HANDP PRE-CARDIAC CATHETERIZATION SERVICE DATE: 11/14/2024 SERVICE TIME: 8:19 am PHYSICAL EXAM MUST BE COMPLETED ON ADMISSION The History and Physical (completed in the past 30 days) has been reviewed and the patient has been examined. The contents accurately reflect the patient's condition with the following additions or revisions since the HANDP was completed. Examination indicates no changes. Planned Procedure: Right and Left Heart Cath + Possible PCI Primary Indication for Procedure: Valvular Heart Disease High Risk Features: History of Prior CABG: No History of Prior PCI: No Cardiomyopathy: No Anti-ischemic Meds in Past 2 Weeks: Beta blockers Ejection Fraction: 60% from Previous Echo Risk Appropriateness: Angina Class in Past 2 Weeks: Class III - Marked limitation of ordinary physical activity Cardiogenic Shock: NoHeart Failure: None Stress Test Performed: None EKG Assessment: Normal Family History of Premature CAD: Father, age 60 Evaluation for Preop Clearance: Cardiac Surgery, Functional Capacity; >= 4 METS with symptoms, Surgical Risk; Low HISTORY OF BLEEDING: No This HANDP can be found in the attached. SIGNATURE: Chema Oreilly MD PATIENT NAME: Goran Gabriel DATE: November 14, 2024 TIME: 8:19 AM [facility] NURSING PROGon 11-14-2024 NURSING PROG HNO ID: [id number] Author: NASIM LEMA RN Service: ? Author Type: Registered Nurse Type: Nursing Progress Note Filed: 11/14/2024 11:46 Note Text: 1135 patient return to POD, right brachial sheath in place site soft, right radial TR band on 2+ radial pulse, hand warm + cap refill. Right groin angio seal intact site soft no bleeding noted. VSS no complaints of pain. Home instructions initiated. Continue to monitor [facility] Ricky 11-09-2024 CNPN Telephone (AGCARDPOB ) -- HARVEYGORAN Bria ([id number]) 1945 M Date Time Provider Department 11/09/24 CHEMA OREILLY AGCARDPOB During your visit today, we recorded the following information about you: Chapito Ramirez 11/09/2024 2:01 PM Signed Cardiac Clearance received from [facility] for Colonoscopy on 11/23/24 Form scanned and placed in Dr. Oreilly's box for review. Chapito Mitchell 11/23/2024 8:02 AM Signed Cardiac Clearance form completed, faxed and confirmation scanned in. Chapito Ramirez Allergies As of Date: 11/09/2024 Noted Allergy Reaction SIMVASTATIN 04/23/2016 5 - Intolerance Comments: myalgias Date Reviewed: 10/23/2024 Reviewed by: Genevieve Tiwari LPN - Fully Assessed Reason for Visit: Cardiac Clearance [4105] Prescriptions as of 11/23/2024 - Aspirin 81 mg tab Take 81 mg by mouth one time only. Pre cath - metoprolol succinate ER (TOPROL XL) 25 mg 24 hr tablet Take 2 tablets by mouth once daily. - ticagrelor (BRILINTA) 90 mg tablet Take 1 tablet by mouth two times a day. - iv contrast (will be provided with radiology test) CTA ABD/PEL - No IV access, insert saline lock prior to the sedation, infusion, injection for imaging exam. Discontinue saline lock post exam. If Pt. has a central line or IVAD, may access for administration according to line specific nursing protocol. Once exam is complete flush line and de-access according to line specific nursing protocol in the CT contrast administration guidelines link. - atorvastatin (LIPITOR) 20 mg tablet Take 1 tablet by mouth once daily. - losartan (COZAAR) 100 mg tablet Take 1 tablet by mouth once daily. - tamsulosin (FLOMAX) 0.4 mg Take 1 capsule by mouth daily at bedtime. - hydroCHLOROthiazide 25 mg tablet Take 1 tablet by mouth once daily. - predniSONE (DELTASONE) 10 mg tablet Take 10 mg by mouth as needed. - fluticasone (FLONASE) 50 mcg/actuation nasal spray Use 1 [place] in each nostril once daily. Rinse mouth after use. - hydroxychloroquine (PLAQUENIL) 200 mg tablet Take 200 mg by mouth once daily. 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] 05/21/2012 L-S radiculopathy [M54.17] 05/21/2012 05/14/2022 Left knee sprain [S83.92XA] 12/09/2012 09/26/2014 Abnormal glucose [R73.09] 02/13/2013 10/30/2020 Sciatica [M54.30] 02/13/2013 10/29/2016 Obesity [E66.9] 02/13/2013 05/14/2022 Lumbar stenosis [M48.061] 09/26/2014 Aortic valve stenosis [I35.0] 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, M19.*02/24/2017 10/30/2020 Left hip pain [M25.552] 02/24/2017 01/16/2019 Cellulitis of right hand [L03.113] 11/28/2018 12/01/2018 Neck pain [M54.2] 11/28/2018 01/16/2019 Acute deep vein thrombosis (DVT) of femoral vei*01/13/2019 10/30/2020 Acute deep vein thrombosis (DVT) of distal end *01/16/2019 02/17/2019 Varicose veins of both legs with edema [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]01/16/2019 Screening for ischemic heart disease [Z13.6] 01/16/2019 05/14/2022 History of cellulitis [Z87.2] 01/16/2019 05/07/2021 Other proteinuria [R80.8] 07/21/2019 Prediabetes [R73.03] 05/07/2021 Inflammatory polyarthritis (HCC) [M06.4] 05/07/2021 Obesity, Class II, BMI 35-39.9 [E66.812] 08/04/2021 Aortic valve disorder [I35.9] 08/04/2021 05/14/2022 Cellulitis of foot [L03.119] 11/11/2022 05/26/2023 Hypertension [I10] 05/26/2023 05/26/2023 Diagnosed: 05/26/2023 Right inguinal pain [R10.31] 05/26/2023 05/26/2023 Diagnosed: 05/26/2023 Encounter Status:Closed by CHAPITO RAMIREZ on 11/09/24 [facility] Basic metabolic 2000 panelOr dered By: Devora Hernandez on 10-24-2024 Anion gap [Moles/Vol] 11 mmol/L 8 - 15 mmol/L [facility] Calcium [Mass/Vol] 10.3 mg/dL High 8.5 - 10. 2 mg/dL [facility] Chloride [Moles/Vol] 97 mmol/L Low 98 - 10 7 mmol/L [facility] CO2 [Moles/Vol] 29 mmol/L 22 - 30 mmol/L [facility] Creatinine [Mass/Vol] 0.99 mg/dL 0.73 - 1.22 mg/dL [facility] GFR/1.73 sq M.predicted among non-blacks MDRD (S/P/Bld) [Vol rate/Area] 77 mL/min/{1.73_m2} - PINF [facility] Comment on above: Estimated Glomerular Filtration Rate (eGFR) is calculated using the 2020 CKD-EPI creatinine equation. This equation utilizes serum creatinine, sex, and age as parameters. The creatinine assay has traceable calibration to isotope dilution-mass spectrometry. Refer to KDIGO guidelines for clinical interpretation. In patients with unstable renal function, e.g. those with acute kidney injury, the eGFR may not accurately reflect actual GFR. Glucose [Mass/Vol] 123 mg/dL High 74 - 99 mg/dL [facility] Comment on above: The [place] Diabete s Association (ADA) provides guidance for cutoff values for fasting glucose and random glucose. The ADA defines fasting as no caloric intake for at least 8 hours. Fasting plasma glucose results between 100 to 125 mg/dL indicate increased risk for diabetes (prediabetes). Fasting plasma glucose results greater than or equal to 126 mg/dL meet the criteria for diagnosis of diabetes. In the absence of unequivocal hyperglycemia, results should be confirmed by repeat testing. In a patient with classic symptoms of hyperglycemia or hyperglycemic crisis, random plasma glucose results greater than or equal to 200 mg/dL meet the criteria for diagnosis of diabetes. Reference: Standards of Medical Care in Diabetes 2016, [place] Diabetes Association. Diabetes Care. 2016.39(Suppl 1). Interpretation and review of laboratory results Abnormal [facility] Potassium [Moles/Vol] 4.4 mmol/L 3.7 - 5.1 mmol/L [facility] Sodium [Moles/Vol] 137 mmol/L 136 - 144 mmol/L [facility] Urea nitrogen [Mass/Vol] 24 mg/dL 9 - 24 mg/dL [facility] Basic metabolic 2000 panelon 10-24-2024 Anion gap [Moles/Vol] 11 mmol/L Normal 8-15 [facility] Comment on above: Order Comment: Speci men Type: BLOOD SPECIMENOrdering Facility: [facility] Address: [address] [place] [address] Performed By: #### 2 4321-2 ####[facility]PITALWNCLIA [id number] [place] [address] [place] Calcium [Mass/Vol] 10.3 mg/dL High 8.5-10.2 [facility] Comment on above: Order Comment: Speci men Type: BLOOD SPECIMENOrdering Facility: [facility] Address: [address] [place], [place] [address] Performed By: #### 2 4321-2 ####[facility]ITALWNCLIA [id number] [place] [address] [place] Chloride [Moles/Vol] 97 mmol/L Low 98-107 [facility] Comment on above: Order Comment: Speci men Type: BLOOD SPECIMENOrdering Facility: [facility] Address: [address] [place] [address] Performed By: #### 2 4321-2 ####[facility] [id number] [place] [address] [place] CO2 [Moles/Vol] 29 mmol/L Normal 22-30 [facility] Comment on above: Order Comment: Speci men Type: BLOOD SPECIMENOrdering Facility: [facility] Address: [address] [place] [address] Performed By: #### 2 4321-2 ####[facility] [id number] [place] [address] [place] Creatinine [Mass/Vol] 0.99 mg/dL Normal 0.73-1.22 [facility] Comment on above: Order Comment: Speci men Type: BLOOD SPECIMENOrdering Facility: [facility] Address: [address] [place] [address] Performed By: #### 2 4321-2 ####[facility] [id number] [address] OF [facility] Creatinine and Glomerular filtration rate.predicted panel (S/P/Bld) 77 mL/min/1.73m??? Normal >=60 [facility] Comment on above: Order Comment: Speci men Type: BLOOD SPECIMENOrdering Facility: [facility] Address: [address] [place] [address] Result Comment: Haimda mated Glomerular Filtration Rate (eGFR) is calculated using the 2020 CKD-EPI creatinine equation. This equation utilizes serum creatinine, sex, and age as parameters. The creatinine assay has traceable calibration to isotope dilution-mass spectrometry. Refer to KDIGO guidelines for clinical interpretation. In patients with unstable renal function, e.g. those with acute kidney injury, the eGFR may not accurately reflect actual GFR. Performed By: #### 2 4321-2 ####[facility] ZOHAIBWNCLIA [id number] [place] [address] [place] Glucose [Mass/Vol] 123 mg/dL High 74-99 [facility] Comment on above: Order Comment: Speci men Type: BLOOD SPECIMENOrdering Facility: [facility] Address: [address] [place] [address] Result Comment: The [place] Diabetes Association (ADA) provides guidance for cutoff values for fasting glucose and random glucose. The ADA defines fasting as no caloric intake for at least 8 hours. Fasting plasma glucose results between 100 to 125 mg/dL indicate increased risk for diabetes (prediabetes). Fasting plasma glucose results greater than or equal to 126 mg/dL meet the criteria for diagnosis of diabetes. In the absence of unequivocal hyperglycemia, results should be confirmed by repeat testing. In a patient with classic symptoms of hyperglycemia or hyperglycemic crisis, random plasma glucose results greater than or equal to 200 mg/dL meet the criteria for diagnosis of diabetes. Reference: Standards of Medical Care in Diabetes 2016, [place] Diabetes Association. Diabetes Care. 2016.39(Suppl 1). Performed By: #### 2 4321-2 ####[facility] [id number] [place] [address] [place] Potassium [Moles/Vol] 4.4 mmol/L Normal 3.7-5.1 [facility] Comment on above: Order Comment: Speci men Type: BLOOD SPECIMENOrdering Facility: [facility] Address: [address] [place] [address] Performed By: #### 2 4321-2 ####[facility]ITALA [id number] [place] [address] [place] Sodium [Moles/Vol] 137 mmol/L Normal 136-144 [facility] Comment on above: Order Comment: Speci men Type: BLOOD SPECIMENOrdering Facility: [facility] Address: [address] [place] [address] Performed By: #### 2 4321-2 ####[facility]ENTERNCSANPET[facility] [id number] [place], [place] [id number] [place] [address] [place] Urea nitrogen [Mass/Vol] 24 mg/dL Normal 9-24 [facility] Comment on above: Order Comment: Speci men Type: BLOOD SPECIMENOrdering Facility: [facility] Address: [address] [place], [place] [address] Performed By: #### 2 4321-2 ####[facility]ERNCSANPET[facility] [id number] [place] [address] [place] CBC panel Auto (Bld)on 10-24 Erythrocyte distribution width (RBC) [Ratio] 12.6 % 11.5 - 15.0 % [facility] Hematocrit (Bld) [Volume fraction] 39.7 % 39.0 - 51.0 % [facility] Hemoglobin (Bld) [Mass/Vol] 13.3 g/dL 13.0 - 17.0 g/dL [facility] Interpretation and review of laboratory results Normal [facility] MCH (RBC) [Entitic mass] 30.9 pg 26.0 - 34.0 pg [facility] MCHC (RBC) [Mass/Vol] 33.5 g/dL 30.5 - 36.0 g/dL [facility] MCV (RBC) [Entitic vol] 92.1 fL 80.0 - 100.0 fL [facility] Nucleated RBC (Bld) [#/Vol] NINF [facility] Platelet mean volume (Bld) [Entitic vol] 10.3 fL 9.0 - 12.7 fL [facility] Platelets (Bld) [#/Vol] 198 10*3/uL [facility] RBC (Bld) [#/Vol] 4.31 10*6/uL 4.20 - 6.0 0 m/uL [facility] WBC (Bld) [#/Vol] 8.5 10*3/uL [facility] Erythrocyte distribution width (RBC) [Ratio] 12.6 % Normal 11.5-15.0 [facility] Comment on above: Order Comment: Speci men Type: BLOOD SPECIMENOrdering Facility: [facility] Address: [address] [place] [address] Performed By: #### 5 8410-2 ####[facility] LATANYA [id number] [address] [place] Hematocrit (Bld) [Volume fraction] 39.7 % Normal 39.0-51.0 [facility] Comment on above: Order Comment: Speci men Type: BLOOD SPECIMENOrdering Facility: [facility] Address: [address] [place] [address] Performed By: #### 5 8410-2 ####[facility] CENTERNCMADAY [id number] [place] [address] [place] Hemoglobin (Bld) [Mass/Vol] 13.3 g/dL Normal 13.0-17.0 [facility] Comment on above: Order Comment: Speci men Type: BLOOD SPECIMENOrdering Facility: [facility] Address: [address] [place] [address] Performed By: #### 5 8410-2 ####[facility] CENTERYANCYManolo [id number] [place] [address] [place] MCH (RBC) [Entitic mass] 30.9 pg Normal 26.0-34.0 [facility] Comment on above: Order Comment: Speci men Type: BLOOD SPECIMENOrdering Facility: [facility] Address: [address] [place] [address] Performed By: #### 5 8410-2 ####[facility] CENTERNCLIA [id number] [place] [address] [place] MCHC (RBC) [Mass/Vol] 33.5 g/dL Normal 30.5-36.0 [facility] Comment on above: Order Comment: Speci men Type: BLOOD SPECIMENOrdering Facility: [facility] Address: [address] [place] [address] Performed By: #### 5 8410-2 ####[facility] ZOHAIBWYANCYLIA [id number] [place] [address] [place] MCV (RBC) [Entitic vol] 92.1 fL Normal 80.0-100.0 [facility] Comment on above: Order Comment: Speci men Type: BLOOD SPECIMENOrdering Facility: [facility] Address: [address] [place] [address] Performed By: #### 5 8410-2 ####[facility] CENTERYANCYLIA [id number] [place] [address] [place] Nucleated RBC (Bld) [#/Vol] 10*3/uL Normal <0.01 [facility] Comment on above: Order Comment: Speci men Type: BLOOD SPECIMENOrdering Facility: [facility] Address: [address] [place] [address] Performed By: #### 5 8410-2 ####[facility] CENTERNCA [id number] [place] [address] [place] Platelet mean volume (Bld) [Entitic vol] 10.3 fL Normal 9.0-12.7 [facility] Comment on above: Order Comment: Speci men Type: BLOOD SPECIMENOrdering Facility: [facility] Address: [address] [place] [address] Performed By: #### 5 8410-2 ####[facility]ITALLIA [id number] [place] [address] [place] Platelets (Bld) [#/Vol] 198 10*3/uL Normal 150-400 [facility] Comment on above: Order Comment: Speci men Type: BLOOD SPECIMENOrdering Facility: [facility] Address: [address] [place] [address] Performed By: #### 5 8410-2 ####[facility] CENTERNCLIA [id number] [place] [address] [place] RBC (Bld) [#/Vol] 4.31 10*6/uL Normal 4.20-6.00 [facility] Comment on above: Order Comment: Speci men Type: BLOOD SPECIMENOrdering Facility: [facility] Address: [address] [place] [address] Performed By: #### 5 8410-2 ####[facility]ITALA [id number] [place] [address] [place] WBC (Bld) [#/Vol] 8.50 10*3/uL Normal 3.70-11.00 [facility] Comment on above: Order Comment: Speci men Type: BLOOD SPECIMENOrdering Facility: [facility] Address: [address] [place] [address] Performed By: #### 5 8410-2 ####[facility]ITALA [id number] [place] [address] [place] NT PRO BNPon 10-24-2024 Natriuretic peptide.B prohormone N-Terminal [Mass/Vol] 74 pg/mL NINF - 450 pg/mL [facility] NT-proBNP SerPl-mCncon 10-24 Natriuretic peptide.B prohormone N-Terminal [Mass/Vol] 74 pg/mL Normal <450 [facility] Comment on above: Order Comment: Speci men Type: BLOOD SPECIMENOrdering Facility: [facility] Address: [address] [place] [address] Performed By: #### 3 3762-6 ####[facility] LABCLIA [id number] [place] [address] [place] Natriuretic peptide.B prohor herb N-Terminal [Mass/Vol]on 10-24-2024 Interpretation and review of laboratory results Normal [facility] Absolute lymphocyte countOrd ered By: Beulah Pittman on 10-23-2024 Lymphocytes Auto (Unsp spec) [#/Vol] 1.28 10*3/uL 0.83-4.51 [facility] Absolute neutrophil countOrd ered By: Beulah Pittman on 10-23-2024 Neutrophils (Bld) [#/Vol] 7.2 10*3/uL 2.0-7.7 [facility] Anion gap in Serum or Plasma Ordered By: Beulah Pittman on 10-23-2024 Anion gap [Moles/Vol] 11 mmol/L 5-15 [facility] Automated lymphocyte count a s percentage of total leukocytesOrdered By: Beulah Pittman on 10-23-2024 Lymphocytes/100 WBC Auto (Unsp spec) 13.5 % Low 19-41 [facility] BUN/creatinine ratioOrdered By: [facility] Toya on 10-23-2024 Urea nitrogen/Creatinine [Mass ratio] 21.4 mg/mg High 10-20 [facility] Basophil percentageOrdered B y: Beulah Pittman on 10-23-2024 Basophils/100 WBC (Bld) 0.5 % 0-1 [facility] Bilirubin, totalOrdered By: Beulah Pittman on 10-23-2024 Bilirubin [Mass/Vol] 0.44 mg/dL 0.00-1.30 [facility] CBC W/Diff, Automatedon 10-10 Absolute Lymph 1.28 X10 3/uL Normal 0.83-4.51 [facility] Comment on above: Performed By: #### L 500.4050, L100.0100 #### [facility] [address] [place], [address] Absolute Neut 7.2 X10 3/uL Normal 2.0-7.7 [facility] Comment on above: Performed By: #### L 500.4050, L100.0100 #### [facility] [address] [place], [address] Basophils/100 WBC (Bld) 0.5 % Normal 0-1 [facility] Comment on above: Performed By: #### L 500.4050, L100.0100 #### [facility] [address] [place], [address] Eosinophils/100 WBC (Bld) 0.9 % Normal 0-5 [facility] Comment on above: Performed By: #### L 500.4050, L100.0100 #### [facility] [address] [place], [address] Erythrocyte distribution width (RBC) [Ratio] 12.5 % Normal 11.6-14.6 [facility] Comment on above: Performed By: #### L 500.4050, L100.0100 #### [facility] [address] [place], [address] Hematocrit (Bld) [Volume fraction] 37.9 % Low 40-54 [facility] Comment on above: Performed By: #### L 500.4050, L100.0100 #### [facility] [address] [place], [address] Hemoglobin (Bld) [Mass/Vol] 12.7 g/dL Low 13.0-16.5 [facility] Comment on above: Performed By: #### L 500.4050, L100.0100 #### [facility] [address] [place], [address] IG% 1.100 High 0.0-0.9 [facility] Comment on above: Result Comment: IG% - Immature Granulocytes (promyelocytes, myelocytes and metamyelocytes) > 1% indicates that a LEFT SHIFT is Present. Performed By: #### L 500.4050, L100.0100 #### [facility] [address] [place], [address] Lymphocytes/100 WBC (Bld) 13.5 % Low 19-41 [facility] Comment on above: Performed By: #### L 500.4050, L100.0100 #### [facility] [address] [place], [address] MCH (RBC) [Entitic mass] 31.8 pg Normal 27.0-32.0 [facility] Comment on above: Performed By: #### L 500.4050, L100.0100 #### [facility] [address] [place], [address] MCHC (RBC) [Mass/Vol] 33.5 g/dL Normal 32-36 [facility] Comment on above: Performed By: #### L 500.4050, L100.0100 #### [facility] [address] [place], [address] MCV (RBC) [Entitic vol] 94.8 fL High 80-94 [facility] Comment on above: Performed By: #### L 500.4050, L100.0100 #### [facility] [address] [place], [address] Monocytes/100 WBC (Bld) 8.1 % Normal 0-10 [facility] Comment on above: Performed By: #### L 500.4050, L100.0100 #### [facility] [address] [place], [address] Neutrophils/100 WBC (Bld) 75.9 % High 47-70 [facility] Comment on above: Performed By: #### L 500.4050, L100.0100 #### [facility] [address] [place], [address] Nucleated RBC (Bld) [#/Vol] 0 10*3/uL Normal 0-5 [facility] Comment on above: Performed By: #### L 500.4050, L100.0100 #### [facility] [address] [place], [address] Platelet mean volume (Bld) [Entitic vol] 11.4 fL Normal 6.2-12.0 [facility] Comment on above: Performed By: #### L 500.4050, L100.0100 #### [facility] [address] [place], [address] Platelets (Bld) [#/Vol] 211 10*3/uL Normal 150-450 [facility] Comment on above: Performed By: #### L 500.4050, L100.0100 #### [facility] [address] [place], [address] RBC (Bld) [#/Vol] 4.00 10*6/uL Low 4.6-6.2 [facility] Comment on above: Performed By: #### L 500.4050, L100.0100 #### [facility] [address] [place], [address] RDW SD 43.7 fl Normal 35.1-43.9 [facility] Comment on above: Performed By: #### L 500.4050, L100.0100 #### [facility] [address] [place], [address] WBC (Bld) [#/Vol] 9.5 10*3/uL Normal 4.4-11.0 [facility] Comment on above: Performed By: #### L 500.4050, L100.0100 #### [facility] [address] [place], [address] CNOVon 10-23-2024 CNOV Office Visit (DEX ) -- GORAN GARBIEL ([id number]) 1945 M Date Time Provider Department 10/23/24 8:40 AM CHEMA OREILLY During your visit today, we recorded the following information about you: Pulse Respiration Blood pressure Weight 78/minute 14/minute 122/60 107.5 kg Height 1.727 m Chema Oreilly MD 10/23/2024 9:11 AM Signed Chema Oreilly MD Interventional Cardiology [address] [place] [address] [phone] Chief Complaint Patient presents with: Follow Up: 1 year follow up HISTORY OF PRESENT ILLNESS: Mr. Gabriel is a 79 year old male seen in my office today for assessment management of aortic stenosis patient was seen a year ago at that time he had asymptomatic moderate aortic stenosis deny limiting symptoms clinical follow-up was recommended his July 2023 echocardiography revealed peak gradient of 22 and mean of 12 with dimensionless index of 0.36 but labeled low-flow low gradient aortic stenosis stroke-volume index was measured at 30 mL/m? He comes for follow-up this year patient noticed that compared to the last year he has become more short of breath with exertion particularly he noticed that he has to stop residential through the driveway to his house to catch his breath he noticed more exertional dyspnea with physical activity suggest either angina equivalent or worsening of his aortic stenosis Patient does have swelling in both legs slightly elevated JVP Denies chest pain Cardiac Risk Factors age (male over 45, female over 55), hyperlipidemia, obesity, hypertension, family history of CAD PAST MEDICAL HISTORY Diagnosis Date Aortic stenosis mild BPH associated with nocturia Hyperglycemia Hyperlipidemia Hypertension IMPOTENCE, ORGANIC ORIGN Kidney congenitally absent, right L-S radiculopathy right leg, Stenosis on lumbar MRI Obesity Personal history of colonic polyps PAST SURGICAL HISTORY Procedure Laterality Date APPENDECTOMY COLONOSCOPY 10/05/2018 COLONOSCOPY FLX DX W/COLLJ SPEC WHEN PFRMD 09/05/13 normal colon - prior polyps 5 year follow up COLSC FLX W/RMVL OF TUMOR POLYP LESION SNARE TQ 01/20/2005 COLSC FLX W/RMVL OF TUMOR POLYP LESION SNARE TQ 06/13/10 polyps cecum and 45cm, tubular adenomas RPR 1ST INGUN HRNA AGE 5 YRS/> REDUCIBLE Hernia repair, inguinal bilateral RX RIB FRACTURE W 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 90 tablet 3 amLODIPine (NORVASC) 5 mg tablet Take 1 tablet by mouth once daily. 90 tablet 3 losartan (COZAAR) 100 mg tablet Take 1 tablet by mouth once daily. 90 tablet 3 metoprolol succinate ER (TOPROL XL) 25 mg 24 hr tablet Take 1 tablet by mouth once daily. 90 tablet 3 tamsulosin (FLOMAX) 0.4 mg Take 1 capsule by mouth daily at bedtime. 90 capsule 3 hydroCHLOROthiazide 25 mg tablet Take 1 tablet by mouth once daily. 90 tablet 3 predniSONE (DELTASONE) 10 mg tablet Take 10 mg by mouth as needed. fluticasone (FLONASE) 50 mcg/actuation nasal spray Use 1 [place] in each nostril once daily. Rinse mouth after use. 3 Bottle 3 hydroxychloroquine (PLAQUENIL) 200 mg tablet Take 200 mg by mouth once daily. iv contrast (will be provided with radiology test) CTA ABD/PEL LE - No IV access, insert saline lock prior to the sedation, infusion, injection for imaging exam. Discontinue saline lock post exam. If Pt. has a central line or IVAD, may access for administration according to line specific nursing protocol. Once exam is complete flush line and de-access according to line specific nursing protocol in the CT contrast administration guidelines link. 1 each 0 iv contrast (will be provided with radiology test) CTA Chest. No IV access, insert saline lock prior to the sedation, infusion, injection for imaging exam. Discontinue saline lock post exam. If Pt. has a central line or IVAD, may access for administration according to line specific nursing protocol. Once exam is complete flush line and de-access according to line specific nursing protocol in the CT contrast administration guidelines link. 1 each 0 No current facility-administered medications for this visit. Review of Systems Constitutional: Negative for chills, diaphoresis, fever, malaise/fatigue and weight loss. HENT: Negative for congestion, ear discharge, ear pain, hearing loss, nosebleeds, sinus pain, sore throat and tinnitus. Eyes: Negative for (more content not included)... Normal [facility] Ricky 10-23-2024 CNPN Telephone (AKPRAD) -- GORAN GABRIEL ([id number]) 1945 M Date Time Provider Department 10/23/24 WILLAM WILEY During your visit today, we recorded the following information about you: Willam Wiley, ÁLVARO.TRAIN ANNOUNCER 10/23/2024 12:53 PM Signed Please schedule patient for TAVR Scans 11/14/2024 at 8 am (Time approved by CT Department) - patient to arrive to heart and vascular at 7 am - no losartan or HCTZ same day as scans Plan for R/LHC with Dr. Oreilly after TAVR Scans are completed. Patient needs updated blood work. - CBC, BMP, BNP ordered Dental Clearance Requested - Please call dentist to fax over form. Dr. Leal [phone] Will await testing results prior to scheduling CT Surgery appt - per Dr. Oreilly. Thank you, Willam Wiley APRN.TRAIN ANNOUNCER Travis Garcia MA 10/23/2024 1:44 PM Signed TAVR scans for 11/14/24 have been schedule and appt can be found in [facility] appt desk. Allergies As of Date: 10/23/2024 Noted Allergy Reaction SIMVASTATIN 04/23/2016 5 - Intolerance Comments: myalgias Date Reviewed: 10/23/2024 Reviewed by: Genevieve Tiwari LPN - Fully Assessed Reason for Visit: Charge Histotechnologist - Other [3603] Primary Visit Diagnosis:Encounter for preprocedural cardiovascular examination [Z01.810] Other Visit Diagnosis:Dyspnea on exertion [R06.09] Order(s):CTA ABD/PEL W IVCON [[id number]] Order #: [id number] FUTURE iv contrast (will be provided with radiology test)CTA ABD/PEL - No IV access, insert saline lock prior to the sedation, infusion, injection for imaging exam. Discontinue saline lock post exam. If Pt. has a central line or IVAD, may access for administration according to line specific nursing protocol. Once exam is complete flush line and de-access according to line specific nursing protocol in the CT contrast administration guidelines link.Disp: 1 eachRfl: 0 CTA CHEST (GATED) WO/W IVCON [[id number]] Order #: [id number] FUTURE COMPLETE BLOOD COUNT [SQCBC] Order #: [id number] FUTURE BASIC METABOLIC PANEL [SQBMP] Order #: [id number] FUTURE NT PRO BNP [SQNTBNP] Order #: [id number] FUTURE Prescriptions as of 10/25/2024 - iv contrast (will be provided with radiology test) CTA ABD/PEL - No IV access, insert saline lock prior to the sedation, infusion, injection for imaging exam. Discontinue saline lock post exam. If Pt. has a central line or IVAD, may access for administration according to line specific nursing protocol. Once exam is complete flush line and de-access according to line specific nursing protocol in the CT contrast administration guidelines link. - atorvastatin (LIPITOR) 20 mg tablet Take 1 tablet by mouth once daily. - amLODIPine (NORVASC) 5 mg tablet Take 1 tablet by mouth once daily. - losartan (COZAAR) 100 mg tablet Take 1 tablet by mouth once daily. - metoprolol succinate ER (TOPROL XL) 25 mg 24 hr tablet Take 1 tablet by mouth once daily. - tamsulosin (FLOMAX) 0.4 mg Take 1 capsule by mouth daily at bedtime. - hydroCHLOROthiazide 25 mg tablet Take 1 tablet by mouth once daily. - predniSONE (DELTASONE) 10 mg tablet Take 10 mg by mouth as needed. - fluticasone (FLONASE) 50 mcg/actuation nasal spray Use 1 [place] in each nostril once daily. Rinse mouth after use. - hydroxychloroquine (PLAQUENIL) 200 mg tablet Take 200 mg by mouth once daily. Problem List As Of Date 10/23/2024 Noted Resolved Hyperlipidemia [E78.5] Essential hypertension, benign [I10] Personal history of colonic polyps [Z86.0100] IMPOTENCE, ORGANIC ORIGN [N52.9] 06/09/2006 Pain in joint, shoulder region [M25.519] 06/21/2006 09/26/2014 Kidney congenitally absent, 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] 05/21/2012 L-S radiculopathy [M54.17] 05/21/2012 05/14/2022 Left knee sprain [S83.92XA] 12/09/2012 09/26/2014 Abnormal glucose [R73.09] 02/13/2013 10/30/2020 Sciatica [M54.30] 02/13/2013 10/29/2016 Obesity [E66.9] 02/13/2013 05/14/2022 Lumbar stenosis [M48.061] 09/26/2014 Aortic valve stenosis [I35.0] 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, M19.*02/24/2017 10/30/2020 Left hip pain [M25.552] 02/24/2017 01/16/2019 Cellulitis of right hand [L03.113] 11/28/2018 12/01/2018 Neck pain [M54.2] 11/28/2018 01/16/2019 Acute deep vein thrombosis (DVT) of femoral vei*01/13/2019 10/30/2020 Acute deep vein thrombosis (DVT) of distal end *01/16/2019 02/17/2019 Varicose veins of both legs with edema [I83.893]01/16/2019 Screening for ischemic heart disease [Z13.6] 01/16/2019 05/14/2022 History of cellulitis [Z87.2] 01/16/2019 05/07/2021 Other proteinuria [R80.8] 07/21/2019 Prediabetes [R73.03] 05/07/2021 Inflammatory polyarthritis (HCC) [M06.4] 05/07/2021 Obesity, Class II, BMI 35-39.9 [E66.812] 08/04/2021 Aortic valve disorder [I35.9] 08/04/2021 05/14/2022 Cellulitis of foot [L03.119] 11/11/2022 05/26/2023 Hypertension [I10] 05/26/2023 05/26/2023 Diagnosed: 05/26/2023 Right inguinal pain [R10.31] (more content not included)... Normal [facility] Carbon dioxide, total [Moles /volume] in Central venous bloodOrdered By: Beulah Pittman on 10-23-2024 CO2 [Moles/Vol] 28.2 mmol/L 21.0-32.0 [facility] Chloride assayOrdered By: Dianne Pittman on 10-23-2024 Chloride [Moles/Vol] 100 mmol/L 98-108 [facility] Comprehensive Metabolic Prof ilon 10-23-2024 Albumin [Mass/Vol] 4.4 g/dL Normal 3.4-4.8 [facility] Comment on above: Performed By: #### L 500.4050, L100.0100 #### [facility] [address] [place], [address] Albumin/Globulin [Mass ratio] 1.6 {ratio} Normal 0.9-2.4 [facility] Comment on above: Performed By: #### L 500.4050, L100.0100 #### [facility] [address] [place], [address] ALK PHOS 86 U/L Normal 40-129 [facility] Comment on above: Performed By: #### L 500.4050, L100.0100 #### [facility] [address] [place], [address] ALT [Catalytic activity/Vol] 24 U/L Normal <=46 [facility] Comment on above: Performed By: #### L 500.4050, L100.0100 #### [facility] [address] [place], [address] AST [Catalytic activity/Vol] 26 U/L Normal <=37 [facility] Comment on above: Performed By: #### L 500.4050, L100.0100 #### [facility] [address] [place], [address] Bilirubin [Mass/Vol] 0.44 mg/dL Normal 0.00-1.30 [facility] Comment on above: Performed By: #### L 500.4050, L100.0100 #### [facility] [address] [place], [address] BUN/CRE 21.4 RATIO High 10-20 [facility] Comment on above: Performed By: #### L 500.4050, L100.0100 #### [facility] [address] [place], [address] Calcium [Mass/Vol] 9.8 mg/dL Normal 7.6-11.0 [facility] Comment on above: Performed By: #### L 500.4050, L100.0100 #### [facility] [address] [place], [address] Chloride [Moles/Vol] 100 mmol/L Normal 98-108 [facility] Comment on above: Performed By: #### L 500.4050, L100.0100 #### [facility] [address] [place], [address] CO2 [Moles/Vol] 28.2 mmol/L Normal 21.0-32.0 [facility] Comment on above: Performed By: #### L 500.4050, L100.0100 #### [facility] [address] [place], [address] Creatinine [Mass/Vol] 1.12 mg/dL Normal 0.70-1.20 [facility] Comment on above: Performed By: #### L 500.4050, L100.0100 #### [facility] [address] [place], [address] GAP 11 Normal 5-15 [facility] Comment on above: Performed By: #### L 500.4050, L100.0100 #### [facility] [address] [place], [address] GFR/1.73 sq M.predicted among non-blacks MDRD (S/P/Bld) [Vol rate/Area] 67 mL/min/{1.73_m2} Normal >60 [facility] Comment on above: Result Comment: mL/m in/1.73m2 CKD-EPI Creatinine Equation (2020) Performed By: #### L 500.4050, L100.0100 #### [facility] [address] [place], [address] Globulin (S) [Mass/Vol] 2.7 g/dL Normal 2.2-4.2 [facility] Comment on above: Performed By: #### L 500.4050, L100.0100 #### [facility] [address] [place], [address] Glucose [Mass/Vol] 113 mg/dL High 70-99 [facility] Comment on above: Performed By: #### L 500.4050, L100.0100 #### [facility] [address] [place], [address] Potassium [Moles/Vol] 4.3 mmol/L Normal 3.3-5.1 [facility] Comment on above: Performed By: #### L 500.4050, L100.0100 #### [facility] [address] [place], [address] Sodium [Moles/Vol] 139 mmol/L Normal 133-145 [facility] Comment on above: Performed By: #### L 500.4050, L100.0100 #### [facility] [address] [place], [address] T PROT 7.2 g/dL Normal 5.9-8.4 [facility] Comment on above: Performed By: #### L 500.4050, L100.0100 #### [facility] [address] [place], [address] Urea nitrogen [Mass/Vol] 24 mg/dL High 4-19 [facility] Comment on above: Performed By: #### L 500.4050, L100.0100 #### [facility] [address] [place], [address] [id number] 10-23-2024 ECG01 Ventricular Rate : 7 6 BPM Atrial Rate : 76 BPM P-R Interval : 198 ms QRS Duration : 96 ms Q-T Interval : 396 ms QTC Calculation(Bazett) : 445 ms Calculated P [place] : 95 degrees Calculated R [place] : -11 degrees Calculated T [place] : 13 degrees NORMAL SINUS RHYTHM ST & ANTERIOR T WAVE ABNORMALITY ABNORMAL ECG Confirmed by MD WISE QARAB ([id number]) on 10/25/2024 5:01:09 PM NAME : GORAN GABRIEL PID : [id number] : 1945 Gender : Male Race : ORD : Procedure Date : Oct 23 2024 08:20:00 Edit Date : Oct 25 2024 17:01:12 Diagnosis: NORMAL SINUS RHYTHM ST & ANTERIOR T WAVE ABNORMALITY ABNORMAL ECG Confirmed by MD WISE QARAB ([id number]) on 10/25/2024 5:01:09 PM Test Reason : Location : 136 : [facility] Overread By : MD WISE QARAB Edited By : MD WISE QARAB Referred By : CHEMA OREILLY Acquired by : Ulysses byrd [facility] Eosinophil percentageOrdered By: Beulah Pittman on 10-23-2024 Eosinophils/100 WBC (Bld) 0.9 % 0-5 [facility] Erythrocyte distribution wid th (RBC) [Ratio]Ordered By: Beulah Pittman on 10-23-2024 Erythrocyte distribution width (RBC) [Entitic vol] 43.7 fL 35.1-43.9 [facility] Erythrocyte distribution wid th ratioOrdered By: Beulah Pittman on 10-23-2024 Erythrocyte distribution width (RBC) [Ratio] 12.5 % 11.6-14.6 [facility] Erythrocyte distribution wid th standard deviationOrdered By: Beulah Pittman on 10-23-2024 Erythrocyte distribution width (RBC) [Ratio] 43.7 fl 35.1-43.9 [facility] GFR/1.73 sq M.predicted elaina g non-blacks MDRD (S/P/Bld) [Vol rate/Area]Ordered By: Beulah Pittman on 10-23-2024 Estimated GFR (MDRD) Non-Af Amer 67 >60 [facility] Comment on above: mL/min/1.73m2 CKD-EP I Creatinine Equation (2020) Glomerular filtration rate ( GFR) estimation/1.73 sq m using serum, plasma, or whole bOrdered By: Beulah Pittman on 10-23-2024 GFR/1.73 sq M.predicted among non-blacks MDRD (S/P/Bld) [Vol rate/Area] 67 mL/min/{1.73_m2} >60 [facility] Comment on above: mL/min/1.73m2 CKD-EP I Creatinine Equation (2020) Hematocrit Auto (Bld) [Volum e fraction]Ordered By: Beulah Pittman on 10-23-2024 Hematocrit (Bld) [Volume fraction] 37.9 % Low 40-54 [facility] Hemoglobin measurementOrdere d By: Beulah Pittman on 10-23-2024 Hemoglobin (Bld) [Mass/Vol] 12.7 g/dL Low 13.0-16.5 [facility] Immature granulocytes/100 WB C Auto (Bld)Ordered By: Beulah Pittman on 10-23-2024 Immature granulocytes/100 WBC (Bld) 1.100 % High 0.0-0.9 [facility] Comment on above: IG% - Immature Granu locytes (promyelocytes, myelocytes and metamyelocytes) > 1% indicates that a LEFT SHIFT is Present. Laboratory - Chemistry and C hemistry - challengeOrdered By: Beulah Pittman on 10-23-2024 AST [Catalytic activity/Vol] 26 U/L <38 [facility] Lymphocytes Auto (Unsp spec) [#/Vol]Ordered By: Beulah Pittman on 10-23-2024 Lymphocytes (Bld) [#/Vol] 1.28 10*3/uL 0.83-4.51 [facility] Lymphocytes/100 WBC Auto (Un sp spec)Ordered By: Beulah Pittman on 10-23-2024 Lymphocytes/100 WBC (Bld) 13.5 % Low 19-41 [facility] MCV (mean corpuscular volume ) determinationOrdered By: Beulah Pittman on 10-23-2024 MCV (RBC) [Entitic vol] 94.8 fL High 80-94 [facility] Mean corpuscular hemoglobin (MCH) determinationOrdered By: Beulah Pittman on 10-23-2024 MCH (RBC) [Entitic mass] 31.8 pg 27.0-32.0 [facility] Mean corpuscular hemoglobin concentration (MCHC) determinationOrdered By: Beulah Pittman on 10-23-2024 MCHC (RBC) [Mass/Vol] 33.5 g/dL 32-36 [facility] Mean platelet volume determi nationOrdered By: Beulah Pittman on 10-23-2024 Platelet mean volume (Bld) [Entitic vol] 11.4 fL 6.2-12.0 [facility] Monocyte percentageOrdered B y: Beulah Pittman on 10-23-2024 Monocytes/100 WBC (Bld) 8.1 % 0-10 [facility] Neutrophil percentageOrdered By: Beulah Pittman on 10-23-2024 Neutrophils/100 WBC (Bld) 75.9 % High 47-70 [facility] Nucleated red blood cell per centageOrdered By: Beulah Pittman on 10-23-2024 Nucleated RBC/100 WBC (Bld) [Ratio] 0 % 0-5 [facility] Platelet countOrdered By: Dianne Pittman on 10-23-2024 Platelets (Bld) [#/Vol] 211 10*3/uL 150-450 [facility] Potassium (Unsp spec) [Mass/ Vol]Ordered By: Beulah Pittman on 10-23-2024 Potassium [Moles/Vol] 4.3 mmol/L 3.3-5.1 [facility] Potassium measurement (mass/ volume)Ordered By: Beulah Pittman on 10-23-2024 Potassium (Unsp spec) [Mass/Vol] 4.3 mmol/L 3.3-5.1 [facility] RBC Auto (Bld) [#/Vol]Ordere d By: Beulah Pittman on 10-23-2024 RBC (Bld) [#/Vol] 4.00 10*6/uL Low 4.6-6.2 [facility] Serum creatinine measurement (mass/volume)Ordered By: Beulah Pittman on 10-23-2024 Creatinine [Mass/Vol] 1.12 mg/dL 0.70-1.20 [facility] Serum globulin measurementOr dered By: Beulah Pittman on 10-23-2024 Globulin (S) [Mass/Vol] 2.7 g/dL 2.2-4.2 [facility] Serum glucose measurement (m ass/volume)Ordered By: Beulah Pittman on 10-23-2024 Glucose [Mass/Vol] 113 mg/dL High 70-99 [facility] Serum or plasma alanine sainz otransferase (ALT) measurementOrdered By: Beulah Pittman on 10-23-2024 ALT [Catalytic activity/Vol] 24 U/L <47 [facility] Serum or plasma albumin oziel urement (mass/volume)Ordered By: Beulah Pittman on 10-23-2024 Albumin [Mass/Vol] 4.4 g/dL 3.4-4.8 [facility] Serum or plasma albumin/glob ulin mass ratioOrdered By: Beulah Pittman on 10-23-2024 Albumin/Globulin [Mass ratio] 1.6 {ratio} 0.9-2.4 [facility] Serum or plasma alkaline azucena sphatase measurementOrdered By: Beulah Pittman on 10-23-2024 ALP [Catalytic activity/Vol] 86 U/L 40-129 [facility] Serum or plasma calcium oziel urement (mass/volume)Ordered By: Beulah Pittman on 10-23-2024 Calcium [Mass/Vol] 9.8 mg/dL 7.6-11.0 [facility] Serum or plasma urea nitroge n measurement (mass/volume)Ordered By: Beulah Pittman on 10-23-2024 Urea nitrogen [Mass/Vol] 24 mg/dL High 4-19 [facility] Sodium levelOrdered By: Arleen Pittman on 10-23-2024 Sodium [Moles/Vol] 139 mmol/L 133-145 [facility] Total proteinOrdered By: David Pittman on 10-23-2024 Protein [Mass/Vol] 7.2 g/dL 5.9-8.4 [facility] White blood cell (WBC) count Ordered By: Beulah Pittman on 10-23-2024 WBC (Bld) [#/Vol] 9.5 10*3/uL 4.4-11.0 [facility] CNOVon 09-28-2024 CNOV Office Visit (GENSWS ) -- GORAN GABRIEL ([id number]) 1945 M Date Time Provider Department 09/28/24 11:00 AM LASHAUN BLUE During your visit today, we recorded the following information about you: Temperature Pulse Respiration Blood pressure 98.1 degrees 94/minute 16/minute 118/64 Weight 107 kg Lashaun Blue APRN.TRAIN ANNOUNCER 09/28/2024 1:02 PM Addendum HISTORY AND PHYSICAL Goran Bria Harvey : 1945 REFERRING PHYSICIAN: Miguelangel Courtney [address] [facility] [address] CHIEF COMPLAINT: Patient presents with: Consult HPI: Goran is a 79 year old male referred for endoscopy. Goran notes son was recently dx with colon cancer- requesting colonoscopy. Goran also was noted to have anemia 09/19/24 but labs drawn yesterday were normal any intervention. Goran denies abdominal pain. Goran denies diarrhea. Goran denies constipation. Goran denies a change in bowel habits. Goran denies melena. Goran denies bright red blood per rectum. Goran denies hemorrhoids. Goran denies heartburn. Goran denies dysphagia. Goran denies a history of ulcers/ peptic ulcer disease. Goran follows with [facility] cardiology for aortic stenosis, HTN, HLD. Last ECHO 10/2023 EF of 57%, no worsening stenosis. Next appt 10/23/24. He denies CP, SOB, dizziness, palpitations, syncope, edema, recent hospitalizations Goran also has a hx of inflammatory polyarthritis. He follows with rheumatology. Goran has undergone prior endoscopy. Last colonoscopy was 09/[address] Bennett at [facility]. Sedation:Midazolam 5 mg IV, Fentanyl 50 micrograms IV Impression: - Non-bleeding internal hemorrhoids. - No specimens collected. Current Outpatient Medications Medication Sig atorvastatin (LIPITOR) 20 mg tablet Take 1 tablet by mouth once daily. amLODIPine (NORVASC) 5 mg tablet Take 1 tablet by mouth once daily. losartan (COZAAR) 100 mg tablet Take 1 tablet by mouth once daily. metoprolol succinate ER (TOPROL XL) 25 mg 24 hr tablet Take 1 tablet by mouth once daily. tamsulosin (FLOMAX) 0.4 mg Take 1 capsule by mouth daily at bedtime. hydroCHLOROthiazide 25 mg tablet Take 1 tablet by mouth once daily. predniSONE (DELTASONE) 10 mg tablet Take 10 mg by mouth as needed. fluticasone (FLONASE) 50 mcg/actuation nasal spray Use 1 [place] in each nostril once daily. Rinse mouth after use. hydroxychloroquine (PLAQUENIL) 200 mg tablet Take 200 mg by mouth once daily. peg 3350-Electrolytes (GOLYTELY) 236-22.74-6.74 -5.86 gram suspension Take 4,000 mL by mouth one time only for 1 dose. Refer to printed prep instructions from your provider. No current facility-administered medications for this visit. ALLERGIES: Simvastatin PAST MEDICAL HISTORY Diagnosis Date Aortic stenosis mild BPH associated with nocturia Hyperglycemia Hyperlipidemia Hypertension IMPOTENCE, ORGANIC ORIGN Kidney congenitally absent, right L-S radiculopathy right leg, Stenosis on lumbar MRI Obesity Personal history of colonic polyps PAST SURGICAL HISTORY Procedure Laterality Date APPENDECTOMY COLONOSCOPY 10/05/2018 COLONOSCOPY FLX DX W/COLLJ SPEC WHEN PFRMD 09/05/13 normal colon - prior polyps 5 year follow up COLSC FLX W/RMVL OF TUMOR POLYP LESION SNARE TQ 01/20/2005 COLSC FLX W/RMVL OF TUMOR POLYP LESION SNARE TQ 06/13/10 polyps cecum and 45cm, tubular adenomas RPR 1ST INGUN HRNA AGE 5 YRS/> REDUCIBLE Hernia repair, inguinal bilateral RX RIB FRACTURE W BARREL DRUM CUTTER FIXATN TONSILLECTOMY PRIMARY/SECONDARY Tonsillectomy FAMILY HISTORY Problem Relation Age of Onset Diabetes Father Social History Tobacco Use Smoking status: Never Smokeless tobacco: Never Vaping Use Vaping status: Never Used Substance Use Topics Alcohol use: Not Currently Drug use: Never REVIEW OF SYMPTOMS: The review of systems data was entered by the nurse and reviewed by me SEE NURSING NOTE PHYSICAL EXAMINATION: General: The patient is 79 year old, male well nourished, well hydrated in no acute distress. The patient is oriented to time, place, and person. VITALS: Blood pressure 118/64, pulse 94, temperature 36.7 ?C (98.1 ?F), temperature source Temporal Artery, resp. rate 16, weight 107 kg (236 lb), SpO2 94%. Body mass index is 36.96 kg/m?. HEENT: Normal cephalic, ataumatic, pupils are equally round, sclera are anicteric, mucous membranes are moist, oropharynx is clear. Neck has no masses, asymmetry or lymphadenopathy. Respiratory: Clear to auscultation and percussion. Normal respiratory excursion and pattern. Cardiac: Examination is regular rate and rhythm. +murmur Abdominal exam: Soft, nontender, with no palpable masses. No hepatosplenomegaly. No palpable hernias. Extremities: no clubbing, cyanosis or edema. No adenopathy. LABORATORY VALUES: As Noted RADIOLOGIC STUDIES: As Noted Assessment IMPRESSION: family history of colon cancer, an (more content not included)... Normal [facility] CBC W Auto Differential pane l (Bld)on 09-26-2024 Basophils (Bld) [#/Vol] 0.04 10*3/uL Normal <0.11 [facility] Comment on above: Order Comment: Speci men Type: BLOOD SPECIMENOrdering Facility: [facility] Address: [address] [place] [address] Performed By: #### 5 7021-8 ####[facility] LABCLIA [id number] [place] [address] [place] Basophils/100 WBC (Bld) 0.5 % Normal [facility] Comment on above: Order Comment: Speci men Type: BLOOD SPECIMENOrdering Facility: [facility] Address: [address] [place] [address] Performed By: #### 5 7021-8 ####[facility] LABCLIA [id number] [place] [address] [place] Differential cell count method Nom (Bld) Auto Normal [facility] Comment on above: Order Comment: Speci men Type: BLOOD SPECIMENOrdering Facility: [facility] Address: [address] [place] [address] Performed By: #### 5 7021-8 ####[facility] LABCLIA [id number] [address], [place] [address] [place] Eosinophils (Bld) [#/Vol] 0.12 10*3/uL Normal <0.46 [facility] Comment on above: Order Comment: Speci men Type: BLOOD SPECIMENOrdering Facility: [facility] Address: [address] [place] [address] Performed By: #### 5 7021-8 ####[facility] LABCLIA [id number] [place] [address] [place] Eosinophils/100 WBC (Bld) 1.4 % Normal [facility] Comment on above: Order Comment: Speci men Type: BLOOD SPECIMENOrdering Facility: [facility] Address: [address] [place] [address] Performed By: #### 5 7021-8 ####[facility] LABCLIA [id number] [place] [address] [place] Erythrocyte distribution width (RBC) [Ratio] 12.6 % Normal 11.5-15.0 [facility] Comment on above: Order Comment: Speci men Type: BLOOD SPECIMENOrdering Facility: [facility] Address: [address] [place] [address] Performed By: #### 5 7021-8 ####[facility] LABCLIA [id number] [place] [address] [place] Hematocrit (Bld) [Volume fraction] 40.6 % Normal 39.0-51.0 [facility] Comment on above: Order Comment: Speci men Type: BLOOD SPECIMENOrdering Facility: [facility] Address: [address] [place] [address] Performed By: #### 5 7021-8 ####[facility] LABCLIA [id number] [place] [address] [place] Hemoglobin (Bld) [Mass/Vol] 13.1 g/dL Normal 13.0-17.0 [facility] Comment on above: Order Comment: Speci men Type: BLOOD SPECIMENOrdering Facility: [facility] Address: [address] [place] [address] Performed By: #### 5 7021-8 ####[facility] LABCLIA [id number] [place] [address] [place] Immature granulocytes (Bld) [#/Vol] 0.07 10*3/uL Normal <0.10 [facility] Comment on above: Order Comment: Speci men Type: BLOOD SPECIMENOrdering Facility: [facility] Address: [address] [place] [address] Performed By: #### 5 7021-8 ####[facility] LABCLIA [id number] [place] [address] [place] Immature granulocytes/100 WBC (Bld) 0.8 % Normal [facility] Comment on above: Order Comment: Speci men Type: BLOOD SPECIMENOrdering Facility: [facility] Address: [address] [place] [address] Performed By: #### 5 7021-8 ####[facility] LABCLIA [id number] [place] [id number] [place] Lymphocytes (Bld) [#/Vol] 1.28 10*3/uL Normal 1.00-4.00 [facility] Comment on above: Order Comment: Speci men Type: BLOOD SPECIMENOrdering Facility: [facility] Address: [address] [place] [address] Performed By: #### 5 7021-8 ####[facility] LABCLIA [id number] [place] [address] [place] Lymphocytes/100 WBC (Bld) 15.3 % Normal [facility] Comment on above: Order Comment: Speci men Type: BLOOD SPECIMENOrdering Facility: [facility] Address: [address] [place] [address] Performed By: #### 5 7021-8 ####[facility] LABCLIA [id number] [place] [address] [place] MCH (RBC) [Entitic mass] 30.8 pg Normal 26.0-34.0 [facility] Comment on above: Order Comment: Speci men Type: BLOOD SPECIMENOrdering Facility: [facility] Address: [address] [place] [address] Performed By: #### 5 7021-8 ####[facility] LABIA [id number] [place] [address] [place] MCHC (RBC) [Mass/Vol] 32.3 g/dL Normal 30.5-36.0 [facility] Comment on above: Order Comment: Speci men Type: BLOOD SPECIMENOrdering Facility: [facility] Address: [address] [place] [address] Performed By: #### 5 7021-8 ####[facility] LABIA [id number] [place] [address] [place] MCV (RBC) [Entitic vol] 95.3 fL Normal 80.0-100.0 [facility] Comment on above: Order Comment: Speci men Type: BLOOD SPECIMENOrdering Facility: [facility] Address: [address] [place] [address] Performed By: #### 5 7021-8 ####[facility] LABCLIA [id number] [place] [address] [place] Monocytes (Bld) [#/Vol] 0.74 10*3/uL Normal <0.87 [facility] Comment on above: Order Comment: Speci men Type: BLOOD SPECIMENOrdering Facility: [facility] Address: [address] [place] [address] Performed By: #### 5 7021-8 ####[facility] LABCLIA [id number] [place] [address] [place] Monocytes/100 WBC (Bld) 8.9 % Normal [facility] Comment on above: Order Comment: Speci men Type: BLOOD SPECIMENOrdering Facility: [facility] Address: [address] [place] [address] Performed By: #### 5 7021-8 ####[facility] LABCLIA [id number] [place] [address] [place] Neutrophils (Bld) [#/Vol] 6.10 10*3/uL Normal 1.45-7.50 [facility] Comment on above: Order Comment: Speci men Type: BLOOD SPECIMENOrdering Facility: [facility] Address: [address] [place] [address] Performed By: #### 5 7021-8 ####[facility] LABCLIA [id number] [place] [address] [place] Neutrophils/100 WBC (Bld) 73.1 % Normal [facility] Comment on above: Order Comment: Speci men Type: BLOOD SPECIMENOrdering Facility: [facility] Address: [address] [place] [address] Performed By: #### 5 7021-8 ####[facility] LABCLIA [id number] [place] [id number] [place] Nucleated RBC (Bld) [#/Vol] 10*3/uL Normal <0.01 [facility] Comment on above: Order Comment: Speci men Type: BLOOD SPECIMENOrdering Facility: [facility] Address: [address] [place] [address] Performed By: #### 5 7021-8 ####[facility] LABCLIA [id number] [address] [place] [address] [place] Nucleated RBC/100 WBC (Bld) [Ratio] 0.0 /100 WBC Normal [facility] Comment on above: Order Comment: Speci men Type: BLOOD SPECIMENOrdering Facility: [facility] Address: [address] [place] [address] Performed By: #### 5 7021-8 ####[facility] LABIA [id number] [address], [place] [address] [place] Platelet mean volume (Bld) [Entitic vol] 11.1 fL Normal 9.0-12.7 [facility] Comment on above: Order Comment: Speci men Type: BLOOD SPECIMENOrdering Facility: [facility] Address: [address] [place] [address] Performed By: #### 5 7021-8 ####[facility] LABIA [id number] [place] [address] [place] Platelets (Bld) [#/Vol] 223 10*3/uL Normal 150-400 [facility] Comment on above: Order Comment: Speci men Type: BLOOD SPECIMENOrdering Facility: [facility] Address: [address] [place] [address] Performed By: #### 5 7021-8 ####[facility] LABIA [id number] [place] [address] [place] RBC (Bld) [#/Vol] 4.26 10*6/uL Normal 4.20-6.00 [facility] Comment on above: Order Comment: Speci men Type: BLOOD SPECIMENOrdering Facility: [facility] Address: [address] [place] [address] Performed By: #### 5 7021-8 ####[facility] LABIA [id number] [place] [id number] [place] WBC (Bld) [#/Vol] 8.35 10*3/uL Normal 3.70-11.00 [facility] Comment on above: Order Comment: Speci men Type: BLOOD SPECIMENOrdering Facility: [facility] Address: [address] [place] [address] Performed By: #### 5 7021-8 ####[facility] LABCLIA [id number] [place] [address] [place] Ferritin SerPl-ncon 2024 Ferritin [Mass/Vol] 531.0 ng/mL Normal 30.3-565.7 [facility] Comment on above: Order Comment: Speci men Type: BLOOD SPECIMENOrdering Facility: [facility] Address: [address] [place] [address] Performed By: #### 2 132-9, 2276-4, 2284-8, 76139-2 ####[facility] LABCLIA [id number] [place] [address] [place] Folate SerPl-mCncon 09-27-19 25 Folate [Mass/Vol] 12.8 ng/mL Normal >4.7 [facility] Comment on above: Order Comment: Speci men Type: BLOOD SPECIMENOrdering Facility: [facility] Address: [address] [place] [address] Performed By: #### 2 132-9, 2276-4, 2284-8, 79791-8 ####[facility] LABCLIA [id number] [place] [id number] [place] Iron and Iron binding capaci ty panelon 09-26-2024 Iron [Mass/Vol] 88 ug/dL Normal 41-186 [facility] Comment on above: Order Comment: Speci men Type: BLOOD SPECIMENOrdering Facility: [facility] Address: [address] [place] [address] Performed By: #### 2 132-9, 2276-4, 2284-8, 61086-8 ####[facility] LABCLIA [id number] [place] [id number] [place] Iron binding capacity [Mass/Vol] 281 ug/dL Normal 232-386 [facility] Comment on above: Order Comment: Speci men Type: BLOOD SPECIMENOrdering Facility: [facility] Address: [address] [place] [address] Performed By: #### 2 132-9, 2276-4, 2284-8, 86573-1 ####[facility] LABIA [id number] [place] [id number] [place] Iron/TIBC [Molar ratio] 31.3 % Normal 15.0-57.0 [facility] Comment on above: Order Comment: Speci men Type: BLOOD SPECIMENOrdering Facility: [facility] Address: [address] [place] [address] Performed By: #### 2 132-9, 2276-4, 2284-8, 70427-8 ####[facility] [id number] [place] [id number] [place] Vit B12 [facility] 025 Cobalamin (Vitamin B12) [Mass/Vol] 506 pg/mL Normal 232-1245 [facility] Comment on above: Order Comment: Speci men Type: BLOOD SPECIMENOrdering Facility: [facility] Address: [address] [place] [address] Performed By: #### 2 132-9, 2276-4, 2284-8, 32376-4 ####[facility] [id number] [place] [id number] [place] CNOVon 09-25-2024 CNOV Office Visit (FAMPWS ) -- HARVEYGORAN ([id number]) 1945 M Date Time Provider Department 09/25/24 5:20 PM MIGUELANGEL COURTNEY During your visit today, we recorded the following information about you: Pulse Blood pressure Weight 77/minute 132/78 108 kg Miguelangel Courtney MD 09/25/2024 5:37 PM Signed No chief complaint on file. HPI: Patient presents today for office visit for follow up. Reviewed labs. Has a mild anemia. No bloody or black stools. No changes in diet. His son was just diagnose with colon cancer and he would like a colonoscopy. Arthritis is stable. Overall is not bad. Still seeing cardiology. No chest pain or shortness of breath. No edema. Still seeing rheumatology. Still seeing urology and nephrology. No issues with lipid lowering meds. Labs are very good. Note was copied and pasted, without alteration from previous ov: HTN: Patient is compliant with meds Yes Monitors bp at home: Yes. Denies side effects: Yes. Chest pain: No. Dyspnea: No. Edema: No. Palpitations: No. Syncope: No. Headache: No. Dizziness: No. Sugars are stable. Discussed limiting diet and weight. Declines metformin. Tired feet bothersome to stand for a long period of time Allergies: Told him to try Claritin or Josephine. Following with urology, nephrology and cardiology. Also seeing rheumatology Latest Ref Rng 09/19/2024 WBC 3.70 - 11.00 k/uL 8.39 RBC 4.20 - 6.00 m/uL 4.11 (L) Hemoglobin 13.0 - 17.0 g/dL 12.7 (L) Hematocrit 39.0 - 51.0 % 38.5 (L) MCV 80.0 - 100.0 fL 93.7 MCH 26.0 - 34.0 pg 30.9 MCHC 30.5 - 36.0 g/dL 33.0 RDW-CV 11.5 - 15.0 % 12.7 Platelet Count 150 - 400 k/uL 194 MPV 9.0 - 12.7 fL 10.5 Neut% % 74.8 Abs Neut (ANC) 1.45 - 7.50 k/uL 6.28 Lymph% % 14.7 Abs Lymph 1.00 - 4.00 k/uL 1.23 [place]% % 8.1 Abs [place] <0.87 k/uL 0.68 Eosin% % 1.3 Abs Eosin <0.46 k/uL 0.11 Baso% % 0.4 Abs Baso <0.11 k/uL 0.03 Immature Gran % % 0.7 IMMATURE GRANS (ABS) <0.10 k/uL 0.06 NRBC /100 WBC 0.0 Absolute nRBC <0.01 k/uL <0.01 DTYPE Auto Protein, Total 6.3 - 8.0 g/dL 6.9 Albumin 3.9 - 4.9 g/dL 4.3 Calcium 8.5 - 10.2 mg/dL 9.4 Bilirubin, Total 0.2 - 1.3 mg/dL 0.4 Alkaline Phosphatase 38 - 113 U/L 88 AST 14 - 40 U/L 19 ALT 10 - 54 U/L 17 Glucose 74 - 99 mg/dL 111 (H) BUN 9 - 24 mg/dL 21 Creatinine 0.73 - 1.22 mg/dL 0.89 Sodium 136 - 144 mmol/L 137 Potassium 3.7 - 5.1 mmol/L 4.2 Chloride 98 - 107 mmol/L 98 CO2 22 - 30 mmol/L 27 Anion Gap 8 - 15 mmol/L 12 eGFR >=60 mL/min/1.73m? 87 Cholesterol, Total <200 mg/dL 142 Triglyceride <150 mg/dL 109 HDL Cholesterol >39 mg/dL 48 Non HDL Cholesterol <130 mg/dL 94 Fasting Time hrs 14 VLDL Cholesterol <30 mg/dL 22 TC:HDL Ratio <5.10 2.96 LDL Cholesterol <100 mg/dL 72 LDL:HDL Ratio <2.54 1.50 Hemoglobin A1C 4.3 - 5.6 % 6.1 (H) Estimated Average Glucose mg/dL 128 Legend: (L) Low (H) High MEDICATIONS: Current Outpatient Medications Medication Sig atorvastatin (LIPITOR) 20 mg tablet Take 1 tablet by mouth once daily. amLODIPine (NORVASC) 5 mg tablet Take 1 tablet by mouth once daily. losartan (COZAAR) 100 mg tablet Take 1 tablet by mouth once daily. metoprolol succinate ER (TOPROL XL) 25 mg 24 hr tablet Take 1 tablet by mouth once daily. tamsulosin (FLOMAX) 0.4 mg Take 1 capsule by mouth daily at bedtime. hydroCHLOROthiazide 25 mg tablet Take 1 tablet by mouth once daily. predniSONE (DELTASONE) 10 mg tablet Take 10 mg by mouth as needed. albuterol HFA (VENTOLIN HFA) 90 mcg/actuation inhaler Inhale 2 Puffs as instructed every 4 hours as needed for wheezing/shortness of breath. (Patient not taking: Reported on 05/30/2024) fluticasone (FLONASE) 50 mcg/actuation nasal spray Use 1 [place] in each nostril once daily. Rinse mouth after use. hydroxychloroquine (PLAQUENIL) 200 mg tablet Take 200 mg by mouth once daily. No current facility-administered medications for this visit. ALLERGIES: ALLERGIES Allergen Reactions Simvastatin Intolerance myalgias PAST MEDICAL HISTORY Diagnosis Date Aortic stenosis mild BPH associated with nocturia Hyperglycemia Hyperlipidemia Hypertension IMPOTENCE, ORGANIC ORIGN Kidney congenitally absent, right L-S radiculopathy right leg, Stenosis on lumbar MRI Obesity Personal history of colonic polyps PAST SURGICAL HISTORY Procedure Laterality Date APPENDECTOMY COLONOSCOPY 10/05/2018 COLONOSCOPY FLX DX W/COLLJ SPEC WHEN PFRMD 09/05/13 normal colon - prior polyps 5 year follow up COLSC FLX W/RMVL OF TUMOR POLYP LESION SNARE TQ 01/20/2005 COLSC FLX W/RMVL OF TUMOR POLYP LESION SNARE TQ 06/13/10 polyps cecum and 45cm, tubular adenomas RPR 1ST INGUN HRNA AGE 5 YRS/> REDUCIBLE Hernia repair, inguinal bilateral RX RIB FRACTURE W BARREL DRUM CUTTER FIXATN TONSILLECTOMY PRIMARY/SECONDARY Tonsillectomy FAMILY HISTORY Problem Relation Age of Onset Diabete (more content not included)... Normal [facility] CBC W Auto Differential pane l (Bld)on 09-19-2024 Basophils (Bld) [#/Vol] 0.03 10*3/uL Normal <0.11 [facility] Comment on above: Order Comment: Speci men Type: BLOOD SPECIMENOrdering Facility: [facility] Address: [address] [place] [address] Performed By: #### 5 7021-8 ####[facility] [id number] [place] [address] [place] Basophils/100 WBC (Bld) 0.4 % Normal [facility] Comment on above: Order Comment: Speci men Type: BLOOD SPECIMENOrdering Facility: [facility] Address: [address] [place] [address] Performed By: #### 5 7021-8 ####[facility] [id number] [place] [address] [place] Differential cell count method Nom (Bld) Auto Normal [facility] Comment on above: Order Comment: Speci men Type: BLOOD SPECIMENOrdering Facility: [facility] Address: [address] [place] [address] Performed By: #### 5 7021-8 ####[facility] [id number] [place] [address] [place] Eosinophils (Bld) [#/Vol] 0.11 10*3/uL Normal <0.46 [facility] Comment on above: Order Comment: Speci men Type: BLOOD SPECIMENOrdering Facility: [facility] Address: [address] [place] [address] Performed By: #### 5 7021-8 ####[facility] [id number] [place] [address] [place] Eosinophils/100 WBC (Bld) 1.3 % Normal [facility] Comment on above: Order Comment: Speci men Type: BLOOD SPECIMENOrdering Facility: [facility] Address: [address] [place] [address] Performed By: #### 5 7021-8 ####[facility] [id number] [place] [address] [place] Erythrocyte distribution width (RBC) [Ratio] 12.7 % Normal 11.5-15.0 [facility] Comment on above: Order Comment: Speci men Type: BLOOD SPECIMENOrdering Facility: [facility] Address: [address] [place] [address] Performed By: #### 5 7021-8 ####[facility] HARISHWNCLIA [id number] [place] [address] [place] Hematocrit (Bld) [Volume fraction] 38.5 % Low 39.0-51.0 [facility] Comment on above: Order Comment: Speci men Type: BLOOD SPECIMENOrdering Facility: [facility] Address: [address] [place] [address] Performed By: #### 5 7021-8 ####[facility] [id number] [place] [address] [place] Hemoglobin (Bld) [Mass/Vol] 12.7 g/dL Low 13.0-17.0 [facility] Comment on above: Order Comment: Speci men Type: BLOOD SPECIMENOrdering Facility: [facility] Address: [address] [place] [address] Performed By: #### 5 7021-8 ####[facility] [id number] [place] [address] [place] Immature granulocytes (Bld) [#/Vol] 0.06 10*3/uL Normal <0.10 [facility] Comment on above: Order Comment: Speci men Type: BLOOD SPECIMENOrdering Facility: [facility] Address: [address] [place] [address] Performed By: #### 5 7021-8 ####[facility] [id number] [place] [address] [place] Immature granulocytes/100 WBC (Bld) 0.7 % Normal [facility] Comment on above: Order Comment: Speci men Type: BLOOD SPECIMENOrdering Facility: [facility] Address: [address] [place] [address] Performed By: #### 5 7021-8 ####[facility] [id number] [place] [address] [place] Lymphocytes (Bld) [#/Vol] 1.23 10*3/uL Normal 1.00-4.00 [facility] Comment on above: Order Comment: Speci men Type: BLOOD SPECIMENOrdering Facility: [facility] Address: [address] [place] [address] Performed By: #### 5 7021-8 ####[facility] [id number] [place] [address] [place] Lymphocytes/100 WBC (Bld) 14.7 % Normal [facility] Comment on above: Order Comment: Speci men Type: BLOOD SPECIMENOrdering Facility: [facility] Address: [address] [place] [address] Performed By: #### 5 7021-8 ####[facility] [id number] [place] [address] [place] MCH (RBC) [Entitic mass] 30.9 pg Normal 26.0-34.0 [facility] Comment on above: Order Comment: Speci men Type: BLOOD SPECIMENOrdering Facility: [facility] Address: [address] [place] [address] Performed By: #### 5 7021-8 ####[facility] [id number] [place] [address] [place] MCHC (RBC) [Mass/Vol] 33.0 g/dL Normal 30.5-36.0 [facility] Comment on above: Order Comment: Speci men Type: BLOOD SPECIMENOrdering Facility: [facility] Address: [address] [place] [address] Performed By: #### 5 7021-8 ####[facility] [id number] [place] [address] [place] MCV (RBC) [Entitic vol] 93.7 fL Normal 80.0-100.0 [facility] Comment on above: Order Comment: Speci men Type: BLOOD SPECIMENOrdering Facility: [facility] Address: [address] [place] [address] Performed By: #### 5 7021-8 ####[facility] [id number] [place] [address] [place] Monocytes (Bld) [#/Vol] 0.68 10*3/uL Normal <0.87 [facility] Comment on above: Order Comment: Speci men Type: BLOOD SPECIMENOrdering Facility: [facility] Address: [address] [place] [address] Performed By: #### 5 7021-8 ####[facility] [id number] [place] [address] [place] Monocytes/100 WBC (Bld) 8.1 % Normal [facility] Comment on above: Order Comment: Speci men Type: BLOOD SPECIMENOrdering Facility: [facility] Address: [address] [place] [address] Performed By: #### 5 7021-8 ####[facility] [id number] [place] [address] [place] Neutrophils (Bld) [#/Vol] 6.28 10*3/uL Normal 1.45-7.50 [facility] Comment on above: Order Comment: Speci men Type: BLOOD SPECIMENOrdering Facility: [facility] Address: [address] [place] [address] Performed By: #### 5 7021-8 ####[facility] [id number] [place] [address] [place] Neutrophils/100 WBC (Bld) 74.8 % [facility] [facility] Comment on above: Order Comment: Speci men Type: BLOOD SPECIMENOrdering Facility: [facility] Address: [address] [place] [address] Performed By: #### 5 7021-8 ####[facility]ERNCLIA [id number] [place] [address] [place] Nucleated RBC (Bld) [#/Vol] 10*3/uL Normal <0.01 [facility] Comment on above: Order Comment: Speci men Type: BLOOD SPECIMENOrdering Facility: [facility] Address: [address] [place] [address] Performed By: #### 5 7021-8 ####[facility] [id number] [place] [address] [place] Nucleated RBC/100 WBC (Bld) [Ratio] 0.0 /100 WBC Normal [facility] Comment on above: Order Comment: Speci men Type: BLOOD SPECIMENOrdering Facility: [facility] Address: [address] [place] [address] Performed By: #### 5 7021-8 ####[facility]ENTERNCLIA [id number] [place] [address] [place] Platelet mean volume (Bld) [Entitic vol] 10.5 fL Normal 9.0-12.7 [facility] Comment on above: Order Comment: Speci men Type: BLOOD SPECIMENOrdering Facility: [facility] Address: [address] [place] [address] Performed By: #### 5 7021-8 ####[facility]ERNCLIA [id number] [place] [address] [place] Platelets (Bld) [#/Vol] 194 10*3/uL Normal 150-400 [facility] Comment on above: Order Comment: Speci men Type: BLOOD SPECIMENOrdering Facility: [facility] Address: [address] [place] [address] Performed By: #### 5 7021-8 ####[facility]ERNCLI [id number] [place] [address] [place] RBC (Bld) [#/Vol] 4.11 10*6/uL Low 4.20-6.00 [facility] Comment on above: Order Comment: Speci men Type: BLOOD SPECIMENOrdering Facility: [facility] Address: [address] [place] [address] Performed By: #### 5 7021-8 ####[facility] CENTERYANCYLIA [id number] [place] [address] [place] WBC (Bld) [#/Vol] 8.39 10*3/uL Normal 3.70-11.00 [facility] Comment on above: Order Comment: Speci men Type: BLOOD SPECIMENOrdering Facility: [facility] Address: [address] [place] [address] Performed By: #### 5 7021-8 ####[facility] CENTERYANCYManolo [id number] [place] [address] [place] Comprehensive metabolic 2000 panelon 09-19-2024 Albumin [Mass/Vol] 4.3 g/dL Normal 3.9-4.9 [facility] Comment on above: Order Comment: Speci men Type: BLOOD SPECIMENOrdering Facility: [facility] Address: [address] [place] [address] Performed By: #### 2 4323-8 ####[facility] CENTERYANCYA [id number] [place] [address] [place] ALP [Catalytic activity/Vol] 88 U/L Normal 38-113 [facility] Comment on above: Order Comment: Speci men Type: BLOOD SPECIMENOrdering Facility: [facility] Address: [address] [place] [address] Performed By: #### 2 4323-8 ####[facility]ENTERNCLIA [id number] [place] [address] [place] ALT [Catalytic activity/Vol] 17 U/L Normal 10-54 [facility] Comment on above: Order Comment: Speci men Type: BLOOD SPECIMENOrdering Facility: [facility] Address: [address] [place] [address] Performed By: #### 2 4323-8 ####[facility]PITALWNCLIA [id number] [place] [address] [place] Anion gap [Moles/Vol] 12 mmol/L Normal 8-15 [facility] Comment on above: Order Comment: Speci men Type: BLOOD SPECIMENOrdering Facility: [facility] Address: [address] [place] [address] Performed By: #### 2 4323-8 ####[facility]ENTERNCSANPETE VAL[facility] [id number] [place] [address] [place] AST [Catalytic activity/Vol] 19 U/L Normal 14-40 [facility] Comment on above: Order Comment: Speci men Type: BLOOD SPECIMENOrdering Facility: [facility] Address: [address] [place] [address] Performed By: #### 2 4323-8 ####[facility]PITALA [id number] [place] [address] [place] Bilirubin [Mass/Vol] 0.4 mg/dL Normal 0.2-1.3 [facility] Comment on above: Order Comment: Speci men Type: BLOOD SPECIMENOrdering Facility: [facility] Address: [address] [place] [address] Performed By: #### 2 4323-8 ####[facility] CENTERNCA [id number] [place] [address] [place] Calcium [Mass/Vol] 9.4 mg/dL Normal 8.5-10.2 [facility] Comment on above: Order Comment: Speci men Type: BLOOD SPECIMENOrdering Facility: [facility] Address: [address] [place] [address] Performed By: #### 2 4323-8 ####[facility]ENTERNCLIA [id number] [place] [address] [place] Chloride [Moles/Vol] 98 mmol/L Normal 98-107 [facility] Comment on above: Order Comment: Speci men Type: BLOOD SPECIMENOrdering Facility: [facility] Address: [address] [place] [address] Performed By: #### 2 4323-8 ####[facility]ENTERNCLIA [id number] [place] [address] [place] CO2 [Moles/Vol] 27 mmol/L Normal 22-30 [facility] Comment on above: Order Comment: Speci men Type: BLOOD SPECIMENOrdering Facility: [facility] Address: [address] [place] [address] Performed By: #### 2 4323-8 ####[facility]PITALLIA [id number] [place] [address] [place] Creatinine [Mass/Vol] 0.89 mg/dL Normal 0.73-1.22 [facility] Comment on above: Order Comment: Speci men Type: BLOOD SPECIMENOrdering Facility: [facility] Address: [address] [place] [address] Performed By: #### 2 4323-8 ####[facility] H[facility]PITALLIA [id number] [place] [address] [place] [facility] [place] Creatinine and Glomerular filtration rate.predicted panel (S/P/Bld) 87 mL/min/1.73m??? Normal >=60 [facility] Comment on above: Order Comment: Speci men Type: BLOOD SPECIMENOrdering Facility: [facility] Address: [address] [place] [address] Result Comment: Hamida mated Glomerular Filtration Rate (eGFR) is calculated using the 2020 CKD-EPI creatinine equation. This equation utilizes serum creatinine, sex, and age as parameters. The creatinine assay has traceable calibration to isotope dilution-mass spectrometry. Refer to KDIGO guidelines for clinical interpretation. In patients with unstable renal function, e.g. those with acute kidney injury, the eGFR may not accurately reflect actual GFR. Performed By: #### 2 4323-8 ####[facility] HOSPITALWYANCYLIA [id number] [place] [address] [place] Glucose [Mass/Vol] 111 mg/dL High 74-99 [facility] Comment on above: Order Comment: Shannen jones Type: BLOOD SPECIMENOrdering Facility: [facility] Address: [address] [place] [address] Result Comment: The [place] Diabetes Association (ADA) provides guidance for cutoff values for fasting glucose and random glucose. The ADA defines fasting as no caloric intake for at least 8 hours. Fasting plasma glucose results between 100 to 125 mg/dL indicate increased risk for diabetes (prediabetes). Fasting plasma glucose results greater than or equal to 126 mg/dL meet the criteria for diagnosis of diabetes. In the absence of unequivocal hyperglycemia, results should be confirmed by repeat testing. In a patient with classic symptoms of hyperglycemia or hyperglycemic crisis, random plasma glucose results greater than or equal to 200 mg/dL meet the criteria for diagnosis of diabetes. Reference: Standards of Medical Care in Diabetes 2016, [place] Diabetes Association. Diabetes Care. 2016.39(Suppl 1). Performed By: #### 2 4323-8 ####[facility] HOSPITALA [id number] [place] [address] [place] Potassium [Moles/Vol] 4.2 mmol/L Normal 3.7-5.1 [facility] Comment on above: Order Comment: Shannen jones Type: BLOOD SPECIMENOrdering Facility: [facility] Address: [address] [place] [id number] Performed By: #### 2 4323-8 ####[facility]ENTERNCLI [id number] [place] [address] [place] Protein [Mass/Vol] 6.9 g/dL Normal 6.3-8.0 [facility] Comment on above: Order Comment: Speci men Type: BLOOD SPECIMENOrdering Facility: [facility] Address: [address] [place] [address] Performed By: #### 2 4323-8 ####[facility] [id number] [place] [address] [place] Sodium [Moles/Vol] 137 mmol/L Normal 136-144 [facility] Comment on above: Order Comment: Speci men Type: BLOOD SPECIMENOrdering Facility: [facility] Address: [address] [place] [address] Performed By: #### 2 4323-8 ####[facility] [id number] [place] [address] [place] Urea nitrogen [Mass/Vol] 21 mg/dL Normal 9-24 [facility] Comment on above: Order Comment: Speci men Type: BLOOD SPECIMENOrdering Facility: [facility] Address: [address] [place] [address] Performed By: #### 2 4323-8 ####[facility] [id number] [place] [address] [place] HbA1c (Bld)on 09-19-2024 Average glucose Estimated from glycated hemoglobin (Bld) [Mass/Vol] 128 mg/dL Normal [facility] Comment on above: Order Comment: Speci men Type: BLOOD SPECIMENOrdering Facility: [facility] Address: [address] [place] [address] Result Comment: eAG: (Estimated average glucose) is a calculated value from HgbA1c and is credit representative of the average blood glucose level in the last 2-3 month period. Performed By: #### 5 5454-3 ####[facility] LABCLIA [id number] [place] [address] [place] HbA1c (Bld) [Mass fraction] 6.1 % High 4.3-5.6 [facility] Comment on above: Order Comment: Liori karen Type: BLOOD SPECIMENOrdering Facility: [facility] Address: [address] [place] [address] Result Comment: Ethan ican Diabetes Association guidelines indicate that patients with HgbA1c in the range 5.7-6.4% are at increased risk for development of diabetes, and intervention by lifestyle modification may be beneficial. HgbA1c greater or equal to 6.5% is considered diagnostic of diabetes. Performed By: #### 5 5454-3 ####[facility] LABCLIA [id number] [place] [id number] [facility] Lipid 1996 panelon 5 Cholesterol [Mass/Vol] 142 mg/dL Normal <200 [facility] Comment on above: Order Comment: Shannen karen Type: BLOOD SPECIMENOrdering Facility: [facility] Address: [address] [place] [address] Result Comment: <200 mg/dL, Desirable 200-239 mg/dL, Borderline high >239 mg/dL, High Performed By: #### 2 4331-1 ####[facility] LABCLIA [id number] [address] [address] [facility] [id number] [address] STATES OF [facility] Cholesterol in HDL [Mass/Vol] 48 mg/dL Normal >39 [facility] Comment on above: Order Comment: Liori men Type: BLOOD SPECIMENOrdering Facility: [facility] Address: [address] [place] [address] Result Comment: 40-5 9 mg/dL, Acceptable >59 mg/dL, High: Negative risk factor for coronary heart disease <40 mg/dL, Low: Positive risk factor for coronary heart disease Performed By: #### 2 4331-1 ####[facility] LABCLIA [id number] [address] [place] [address] [facility] [id number] [place] [address] [place] Cholesterol in LDL [Mass/Vol] 72 mg/dL Normal <100 [facility] Comment on above: Order Comment: Speci men Type: BLOOD SPECIMENOrdering Facility: [facility] Address: [address] [place] [address] Result Comment: <100 mg/dL, Optimal 100-129 mg/dL, Near optimal/above optimal 130-159 mg/dL, Borderline high 160-189 mg/dL, High >189 mg/dL, Very high Secondary prevention optimal LDL Cholesterol levels are recommended to be < 70 mg/dL Performed By: #### 2 4331-1 ####[facility] LABCLIA [id number] [id number] [place] [address] [place] Cholesterol in LDL/Cholesterol in HDL [Mass ratio] 1.50 {ratio} Normal <2.54 [facility] Comment on above: Order Comment: Speci men Type: BLOOD SPECIMENOrdering Facility: [facility] Address: [address] [place] [address] Result Comment: Saroj escobedo: 1. National Cholesterol Education Program ATP III Guideline At-A-Glance Quick Desk Reference: National Heart, Lung, and Blood [place]. National Institutes of Health. 2001: NIH Publication No. 01-3305. 2. An International Atherosclerosis Society position paper: global recommendations for the management of dyslipidemia: executive summary, Atherosclerosis. 2014: 232(2):410-413. Performed By: #### 2 4331-1 ####[facility] LABCLIA [id number] [address] STATES [facility] [id number] [place] [address] [place] Cholesterol in VLDL [Mass/Vol] 22 mg/dL Normal <30 [facility] Comment on above: Order Comment: Speci men Type: BLOOD SPECIMENOrdering Facility: [facility] Address: [address] [place], [place] [address] Performed By: #### 2 4331-1 ####[facility] LABCLIA [id number] [address] [address] [facility] [id number] [place] [address] [place] Cholesterol non HDL [Mass/Vol] 94 mg/dL Normal <130 [facility] Comment on above: Order Comment: Speci men Type: BLOOD SPECIMENOrdering Facility: [facility] Address: [address] [place] [address] Result Comment: <130 mg/dL, Optimal 130-159 mg/dL, Near optimal/above optimal 160-189 mg/dL, Borderline high 190-219 mg/dL, High >219 mg/dL, Very high Secondary prevention optimal non HDL Cholesterol levels are recommended to be <100 mg/dL Performed By: #### 2 4331-1 ####[facility] LABCLIA [id number] [place] [id number] [facility] [id number] [place] [address] [place] Cholesterol.total/Chol esterol in HDL [Mass ratio] 2.96 {ratio} Normal <5.10 [facility] Comment on above: Order Comment: Speci men Type: BLOOD SPECIMENOrdering Facility: [facility] Address: [address] [place], [place] [address] Performed By: #### 2 4331-1 ####[facility] LABCLIA [id number] [place] [id number] [facility] [id number] [place] [address] [place] FASTING TIME 14 hrs Normal [facility] Comment on above: Order Comment: Speci men Type: BLOOD SPECIMENOrdering Facility: [facility] Address: [address] [place] [address] Performed By: #### 2 4331-1 ####[facility] LABCLIA [id number] [address] [id number] [address] [place] Triglyceride [Mass/Vol] 109 mg/dL Normal <150 [facility] Comment on above: Order Comment: Speci men Type: BLOOD SPECIMENOrdering Facility: [facility] Address: [address] [place] [address] Result Comment: <150 mg/dL, Normal 150-199 mg/dL, Borderline high 200-499 mg/dL, High >499 mg/dL, Very high Performed By: #### 2 4331-1 ####[facility] LABCLIA [id number] [address] [id number] [address] [place] ALINOVdimple 05-30-2024 CNOV Office Visit (UROLWS ) -- GORAN GABRIEL ([id number]) 1945 M Date Time Provider Department 05/30/24 9:15 AM STEPHON NEGRON During your visit today, we recorded the following information about you: Pulse Blood pressure Weight 80/minute 136/82 111.6 kg Kimmy Goodwin MA 05/30/2024 10:42 AM Signed Patient's post-void bladder scan: 81 ML. 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 Continues following with Dr. Cerrato ( Nephrology) for proteinuria PSA - 0.66 VOIDING SYMPTOMS: NTF: 2 time ALLERGY: ALLERGIES Allergen Reactions Simvastatin Intolerance myalgias MEDICATIONS: Current Outpatient Medications Medication Sig Dispense Refill tamsulosin (FLOMAX) 0.4 mg Take 1 capsule by mouth daily at bedtime. 90 capsule 3 hydroCHLOROthiazide 25 mg tablet Take 1 tablet by mouth once daily. 90 tablet 3 losartan (COZAAR) 100 mg tablet Take 1 tablet by mouth once daily. 90 tablet 3 atorvastatin (LIPITOR) 20 mg tablet Take 1 tablet by mouth once daily. 90 tablet 3 amLODIPine (NORVASC) 5 mg tablet Take 1 tablet by mouth once daily. 90 tablet 3 metoprolol succinate ER (TOPROL XL) 25 mg 24 hr tablet Take 1 tablet by mouth once daily. 90 tablet 3 predniSONE (DELTASONE) 10 mg tablet Take 10 mg by mouth as needed. fluticasone (FLONASE) 50 mcg/actuation nasal spray Use 1 [place] in each nostril once daily. Rinse mouth after use. 3 Bottle 3 hydroxychloroquine (PLAQUENIL) 200 mg tablet Take 200 mg by mouth once daily. albuterol HFA (VENTOLIN HFA) 90 mcg/actuation inhaler Inhale 2 Puffs as instructed every 4 hours as needed for wheezing/shortness of breath. (Patient not taking: Reported on 05/30/2024) 1 Each 1 No current facility-administered medications for this visit. 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 No acute distress No change in ROS since last urology visit Physical Examination: Blood pressure 136/82, pulse 80, weight 111.6 kg (246 lb), SpO2 94%. General Appearance/ Constitutional: Well developed, well nourished, and in no apparent distress LABS: Results for orders placed or performed in visit on 05/30/24 UA DIP, URINE (POC) Result Value Ref Range GLUCOSE UA (POCT) Negative Negative mg/dL BILIRUBIN UA (POCT) Negative Negative KETONE UA (POCT) Negative Negative mg/dL SPECIFIC GRAVITY UA (POCT) 1.015 1.005 - 1.030 HEMOGLOBIN/BLOOD UA (POCT) Negative Negative PH UA (POCT) 6.5 4.5 - 8.0 PROTEIN UA (POCT) Negative Negative mg/dL UROBILINOGEN UA (POCT) 0.2 Normal E.U./dL NITRITE UA (POCT) Negative Negative LEUKOCYTES UA (POCT) Negative Negative COLOR UA (POCT) Yellow CLARITY UA (POCT) Clear Creatinine Date Value Ref Range Status 11/16/2023 1.06 0.73 - 1.22 mg/dL Final 05/26/2023 1.02 0.73 - 1.22 mg/dL Final 12/02/2022 1.07 0.73 - 1.22 mg/dL Final 11/10/2022 1.23 (H) 0.73 - 1.22 mg/dL Final IMPRESSION / PLAN: > History of BPH w LUTS > PSA 0.66 > Flomax 0.4 mg > Hx of Solitary Kidney > Proteinuria > Following by Dr. Cerrato - Nephrology > 1 year Appt w/ JOSE A Kraus MT, PA-C with PSA prior JOSE A Whelan MT, PA-C Mooney, Brandon, PA-C 05/30/2024 10:22 AM Signed > 1 year Appt w/ JOSE A Kraus MT, PA-C with PSA prior Allergies As of Date: 05/30/2024 Noted Allergy Reaction SIMVASTATIN 04/23/2016 5 - Intolerance Comments: myalgias Date Reviewed: 05/30/2024 Reviewed by: Kimmy Goodwin MA - Fully Assessed Reason for Visit: Follow Up [171] BPH [1368] Primary Visit Diagnosis:BPH associated with nocturia [N40.1, R35.1] Other Visit Diagnosis:Kidney congenitally absent, 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] Order(s):US MSR POST-VOID RESID URINE [[id number]] Order #: [id number] UA DIP, URINE (POC) [[id number]] Order #: [id number]. #:[id number] 1-LAB PROSTATE-SPECIFIC ANTIGEN DIAGNOSTIC [SQPSA] Order #: [id number] FUTURE Prescriptions as of 05/30/2024 - tamsulosin (FLOMAX) 0.4 mg Take 1 capsule by mouth daily at bedtime. - hydroCHLOROthiazide 25 mg tablet Take 1 tablet by mouth once daily. - losartan (COZAAR) 100 mg tablet Take 1 tablet by mouth once daily. - atorvastatin (LIPITOR) (more content not included)... Normal [facility] UA DIP, URINE (POC)on 2023 BILIRUBIN UA (POCT) Negative Negative [facility] CLARITY UA (POCT) Clear [facility] COLOR UA (POCT) Yellow [facility] GLUCOSE UA (POCT) Negative Negative mg/dL [facility] Hemoglobin Ql (U) [facility] KETONE UA (POCT) Negative Negative mg/dL [facility] LEUKOCYTES UA (POCT) Negative Negative [facility] NITRITE UA (POCT) Negative Negative [facility] PH UA (POCT) 6.5 4.5 - 8.0 [facility] Protein Ql (U) Negative Negative mg/dL [facility] SPECIFIC GRAVITY UA (POCT) 1.015 1.005 - 1.030 [facility] UROBILINOGEN UA (POCT) 0.2 Agueda l E.U./dL [facility] Location:[facility], [address], [place], [address] [facility] POINT OF CARE [facility] PSA [facility] Prostate specific Ag [Mass/Vol] 0.66 ng/mL Normal <2.60 [facility] Comment on above: Order Comment: Speci men Type: BLOOD SPECIMENOrdering Facility: [facility] Address: [address] [place] [address] Result Comment: Daly garces PSA test methodology used is the Electrochemiluminescence Immunoassay by [employer]. Total PSA values by differing methodologies cannot be interchanged. Performed By: #### 2 857-1 ####[facility] LABCLIA [id number] [place] [id number] [place] Absolute lymphocyte countOrd ered By: Beulah Pittman on 11-11-2023 Lymphocytes Auto (Unsp spec) [#/Vol] 1.37 10*3/uL 0.83-4.51 [facility] Automated lymphocyte count a s percentage of total leukocytesOrdered By: Beulah Pittman on 11-11-2023 Lymphocytes/100 WBC Auto (Unsp spec) 17.7 % 19-41 [facility] Basophil percentageOrdered B y: Beulah Pittman on 11-11-2023 Basophils/100 WBC (Bld) 0.3 % 0-1 [facility] Bilirubin [Mass/Vol] 0.60 mg/dL 0.20-1.00 [facility] Comment on above: For patients on eltr ombopag therapy, use of Dimension [place] TBIL is not recommended. Chloride [Moles/Vol] 104 mmol/L 98-107 [facility] Eosinophils/100 WBC (Bld) 1.5 % 0-5 [facility] Glucose [Mass/Vol] 127 mg/dL 74-106 [facility] Comment on above: Fasting Glucose resu lt greater than or equal to 126 mg/dL suggests DIABETES MELLITUS per A.D.A. criteria. Hemoglobin (Bld) [Mass/Vol] 12.8 g/dL 13.0-16.5 [facility] Monocytes/100 WBC (Bld) 9.2 % 0-10 [facility] Neutrophils (Bld) [#/Vol] 5.5 10*3/uL 2.0-7.7 [facility] Neutrophils/100 WBC (Bld) 70.4 % 47-70 [facility] Potassium [Moles/Vol] 4.1 mmol/L 3.5-5.1 [facility] Protein [Mass/Vol] 7.2 g/dL 6.4-8.2 [facility] Sodium [Moles/Vol] 139 mmol/L 136-145 [facility] WBC (Bld) [#/Vol] 7.8 10*3/uL 4.4-11.0 [facility] Determination of erythrocyte mean corpuscular volume (MCV)Ordered By: Beulah Pittman on 11-11-2023 MCV (RBC) [Entitic vol] 95.9 fL 80-94 [facility] [facility] Erythrocyte distribution wid th ratioOrdered By: [facility] Toya on 11-11-2023 Erythrocyte distribution width (RBC) [Ratio] 12.7 % 11.6-14.6 [facility] Erythrocyte distribution wid th standard deviationOrdered By: Beulah Pittman on 11-11-2023 Erythrocyte distribution width (RBC) [Entitic vol] 45.1 fL 35.1-43.9 [facility] Hematocrit Auto (Bld) [Volum e fraction]Ordered By: Beulah Pittman on 11-11-2023 Hematocrit (Bld) [Volume fraction] 40.2 % 40-54 [facility] Immature granulocytes/100 WB C Auto (Bld)Ordered By: Beulah Pittman on 11-11-2023 Immature granulocytes/100 WBC (Bld) 0.900 % 0.0-0.9 [facility] Comment on above: IG% - Immature Granu locytes (promyelocytes, myelocytes and metamyelocytes) > 1% indicates that a LEFT SHIFT is Present. Laboratory - Chemistry and C hemistry - challengeOrdered By: [facility] Toya on 11-11-2023 Albumin/Globulin [Mass ratio] 1.1 {ratio} 0.9-2.4 [facility] ALP [Catalytic activity/Vol] 88 U/L 45-117 [facility] ALT [Catalytic activity/Vol] 32 U/L 16-61 [facility] CO2 [Moles/Vol] 32.0 mmol/L 21.0-32.0 [facility] Globulin (S) [Mass/Vol] 3.4 g/dL 2.2-4.2 [facility] Urea nitrogen/Creatinine [Mass ratio] 16.5 mg/mg 10-20 [facility] Laboratory - Hematology and Cell countsOrdered By: [facility] Toya on 11-11-2023 MCH (RBC) [Entitic mass] 30.5 pg 27.0-32.0 [facility] MCHC (RBC) [Mass/Vol] 31.8 g/dL 32-36 [facility] Nucleated RBC/100 WBC (Bld) [Ratio] 0 % 0-5 [facility] Platelet mean volume (Bld) [Entitic vol] 11.2 fL 6.2-12.0 [facility] Platelets (Bld) [#/Vol] 200 10*3/uL 150-450 [facility] No Panel InformationOrdered By: Beulah Pittman on 11-11-2023 Estimated GFR (MDRD) Amer 75 mL/min >60 [facility] Comment on above: GFR Calc Estimated GFR (MDRD) Non-Af Amer 62 mL/min >60 [facility] Comment on above: Non- GFR Calc RBC Auto (Bld) [#/Vol]Ordere d By: Beulah Pittman on 11-11-2023 RBC (Bld) [#/Vol] 4.19 10*6/uL 4.6-6.2 [facility] Serum or plasma calcium oziel urement (mass/volume)Ordered By: Beulah Pittman on 11-11-2023 Calcium [Mass/Vol] 9.4 mg/dL 8.5-10.1 [facility] Serum or plasma creatinine m easurement (mass/volume)Ordered By: Beulah Pittman on 11-11-2023 Creatinine [Mass/Vol] 1.21 mg/dL 0.70-1.30 [facility] Comment on above: The validity of the calculated GFR & GFRAA in patients over 70 years has not been determined. Clinical correlation is essential. Serum or plasma urea nitroge n measurement (mass/volume)Ordered By: Beulah Pittman on 11-11-2023 Urea nitrogen [Mass/Vol] 20 mg/dL 7-18 [facility] Thin prep Papanicolaou smear with manual screeningOrdered By: Beulah Pittman on 11-11-2023 Thin prep Papanicolaou smear with manual screening 3.8 g/dL 3.2-5.0 [facility] Thin prep Papanicolaou smear with manual screening 28 U/L 15-37 [facility] Thin prep Papanicolaou smear with manual screening 3 5-15 [facility] XR CHEST 2V FRONTAL/LATon [facility] XR Chest PA and Lateralon IMPRESSION: Stable atelectasis or consolidation at the right base. Elevation of the right hemidiaphragm Health And Safety Inspector: JUSTIN Transcribe Date/Time: May 26 2023 3:17P Dictated by : NEYMAR RASMUSSEN MD This examination was interpreted and the report reviewed and electronically signed by: NEYMAR RASMUSSEN MD on May 26 2023 3:18PM [facility] DIVISION OF RADIOLOGY * * *Final Report* * * DATE OF EXAM: May 26 2023 10:23AM WOX [id number] - XR CHEST 2V FRONTAL/LAT / PROCEDURE REASON: multiple diagnoses * * * * Physician Interpretation * * * * EXAMINATION: CHEST RADIOGRAPH (2 VIEW FRONTAL & LATERAL) CLINICAL HISTORY: URI, acute Wheezing MQ: XC2_6 EXAM DATE/TIME: 05/26/2023 10:23 AM COMPARISON: 10/30/2020 RESULT: Lines, tubes, and devices: None. Lungs and pleura: Elevation of the right hemidiaphragm. Persistent atelectasis and/or consolidation at the right lung base. Cardiomediastinal silhouette: Stable cardiomediastinal silhouette. Bones and soft tissues: Unremarkable. DIVISION OF RADIOLOGY Provider, [facility] - 05/26/2023 * * *Final Report* * * DATE OF EXAM: May 26 2023 10:23AM WOX [id number] - XR CHEST 2V FRONTAL/LAT / PROCEDURE REASON: multiple diagnoses * * * * Physician Interpretation * * * * EXAMINATION: CHEST RADIOGRAPH (2 VIEW FRONTAL & LATERAL) CLINICAL HISTORY: URI, acute Wheezing MQ: XC2_6 EXAM DATE/TIME: 05/26/2023 10:23 AM COMPARISON: 10/30/2020 RESULT: Lines, tubes, and devices: None. Lungs and pleura: Elevation of the right hemidiaphragm. Persistent atelectasis and/or consolidation at the right lung base. Cardiomediastinal silhouette: Stable cardiomediastinal silhouette. Bones and soft tissues: Unremarkable. IMPRESSION IMPRESSION: Stable atelectasis or consolidation at the right base. Elevation of the right hemidiaphragm Health And Safety Inspector: PSCB Transcribe Date/Time: May 26 2023 3:17P Dictated by : NEYMAR RASMUSSEN MD This examination was interpreted and the report reviewed and electronically signed by: NEYMAR RASMUSSEN MD on May 26 2023 3:18PM EST [facility] Radiology Study observation (narrative) [facility] XR Chest PA and LateralOrder ed By: [facility] Provider on 05-26-2023 [facility] UA DIP, URINE (POC)on 2022 BILIRUBIN UA (POCT) Negative Negative [facility] CLARITY UA (POCT) Clear [facility] COLOR UA (POCT) Yellow [facility] GLUCOSE UA (POCT) Negative Negative mg/dL [facility] Hem[facility] Ql (U) [facility] KETONE UA (POCT) Negative Negative mg/dL [facility] LEUKOCYTES UA (POCT) Negative [facility] NITRITE UA (POCT) Negative Negative [facility] PH UA (POCT) 7.0 4.5 - 8.0 [facility] Protein Ql (U) Trace Abnormal Negative mg/dL [facility] SPECIFIC GRAVITY UA (POCT) 1.025 1.005 - 1.030 [facility] UROBILINOGEN UA (POCT) 0.2 E.U./dL Agueda l E.U./dL [facility] Absolute lymphocyte countOrd ered By: Beulah Pittman on 05-17-2023 Lymphocytes Auto (Unsp spec) [#/Vol] 1.18 10*3/uL 0.83-4.51 [facility] Basophil percentageOrdered B y: Beulah Pittman on 05-17-2023 Basophils/100 WBC (Bld) 0.4 % 0-1 [facility] Bilirubin [Mass/Vol] 0.30 mg/dL 0.20-1.00 [facility] Comment on above: For patients on eltr ombopag therapy, use of Dimension [place] TBIL is not recommended. Chloride [Moles/Vol] 103 mmol/L 98-107 [facility] Eosinophils/100 WBC (Bld) 1.9 % 0-5 [facility] Glucose [Mass/Vol] 133 mg/dL 74-106 [facility] Comment on above: Fasting Glucose resu lt greater than or equal to 126 mg/dL suggests DIABETES MELLITUS per A.D.A. criteria. Neutrophils (Bld) [#/Vol] 5.3 10*3/uL 2.0-7.7 [facility] Neutrophils/100 WBC (Bld) 71.0 % 47-70 [facility] Potassium [Moles/Vol] 4.2 mmol/L 3.5-5.1 [facility] Protein [Mass/Vol] 7.4 g/dL 6.4-8.2 [facility] Sodium [Moles/Vol] 139 mmol/L 136-145 [facility] WBC (Bld) [#/Vol] 7.4 10*3/uL 4.4-11.0 [facility] Blood erythrocytes count (nu mber/volume)Ordered By: Beulah Pittman on 05-17-2023 RBC (Bld) [#/Vol] 4.18 10*6/uL 4.6-6.2 [facility] Blood hemoglobin measurement (mass/volume)Ordered By: Beulah Pittman on 05-17-2023 Hemoglobin (Bld) [Mass/Vol] 13.0 g/dL 13.0-16.5 [facility] Blood lymphocytes/100 leukoc ytesOrdered By: Beulah Pittman on 05-17-2023 Lymphocytes/100 WBC (Bld) 15.9 % 19-41 [facility] Blood monocytes/100 leukocyt esOrdered By: Beulah Pittamn on 05-17-2023 Monocytes/100 WBC (Bld) 9.6 % 0-10 [facility] Blood platelet mean volumeOr dered By: Beulah Pittman on 05-17-2023 Platelet mean volume (Bld) [Entitic vol] 11.0 fL 6.2-12.0 [facility] Determination of erythrocyte mean corpuscular volume (MCV)Ordered By: Beulah Pittman on 05-17-2023 MCV (RBC) [Entitic vol] 98.1 fL 80-94 [facility] Hematocrit Auto (Bld) [Volum e fraction]Ordered By: Beulah Pittman on 05-17-2023 Hematocrit (Bld) [Volume fraction] 41.0 % 40-54 [facility] Laboratory - Chemistry and C hemistry - challengeOrdered By: Beulah Pittman on 05-17-2023 ALP [Catalytic activity/Vol] 103 U/L 45-117 [facility] ALT [Catalytic activity/Vol] 31 U/L 16-61 [facility] CO2 [Moles/Vol] 29.0 mmol/L 21.0-32.0 [facility] Globulin (S) [Mass/Vol] 3.8 g/dL 2.2-4.2 [facility] Urea nitrogen/Creatinine [Mass ratio] 20.9 mg/mg 10-20 [facility] Laboratory - Hematology and Cell countsOrdered By: Beulah Pittman on 05-17-2023 Erythrocyte distribution width (RBC) [Entitic vol] 46.1 fL 35.1-43.9 [facility] Erythrocyte distribution width (RBC) [Ratio] 12.9 % 11.6-14.6 [facility] Immature granulocytes/100 WBC (Bld) 1.200 % 0.0-0.9 [facility] Comment on above: IG% - Immature Granu locytes (promyelocytes, myelocytes and metamyelocytes) > 1% indicates that a LEFT SHIFT is Present. MCH (RBC) [Entitic mass] 31.1 pg 27.0-32.0 [facility] Nucleated RBC/100 WBC (Bld) [Ratio] 0 % 0-5 [facility] MCHC Auto (RBC) [Mass/Vol]Or dered By: Beulah Pittman on 05-17-2023 MCHC (RBC) [Mass/Vol] 31.7 g/dL 32-36 [facility] No Panel InformationOrdered By: Beulah Pittman on 05-17-2023 Estimated GFR (MDRD) Amer 83 mL/min >60 [facility] Comment on above: GFR Calc Estimated GFR (MDRD) Non-Af Amer 69 mL/min >60 [facility] Comment on above: Non- GFR Calc Platelets bldOrdered By: David Pittman on 05-17-2023 Platelets (Bld) [#/Vol] 211 10*3/uL 150-450 [facility] Serum or plasma albumin oziel urement (mass/volume)Ordered By: Beulah Pittman on 05-17-2023 Albumin [Mass/Vol] 3.6 g/dL 3.2-5.0 [facility] Serum or plasma albumin/glob ulin mass ratioOrdered By: Beulah Pittman on 05-17-2023 Albumin/Globulin [Mass ratio] 0.9 {ratio} 0.9-2.4 [facility] Serum or plasma calcium oziel urement (mass/volume)Ordered By: Beulah Pittman on 05-17-2023 Calcium [Mass/Vol] 9.3 mg/dL 8.5-10.1 [facility] Serum or plasma creatinine m easurement (mass/volume)Ordered By: Beulah Pittman on 05-17-2023 Creatinine [Mass/Vol] 1.10 mg/dL 0.70-1.30 [facility] Comment on above: The validity of the calculated GFR & GFRAA in patients over 70 years has not been determined. Clinical correlation is essential. Serum or plasma urea nitroge n measurement (mass/volume)Ordered By: Beulahzoey Pittman on 05-17-2023 Urea nitrogen [Mass/Vol] 23 mg/dL 7-18 [facility] Thin prep Papanicolaou smear with manual screeningOrdered By: [facility] Toya on 05-17-2023 Thin prep Papanicolaou smear with manual screening 18 U/L 15-37 [facility] Thin prep Papanicolaou smear with manual screening 7 5-15 [facility] Absolute lymphocyte countOrd ered By: Jann Ramirez on 05-11-2023 Lymphocytes Auto (Unsp spec) [#/Vol] 1.07 10*3/uL 0.83-4.51 [facility] Basophil percentageOrdered B y: Jann Ramirez on 05-11-2023 Basophil percentage 0 SEEN /hpf 0-5 [facility] Basophils/100 WBC (Bld) 0.4 % 0-1 [facility] Bilirubin [Mass/Vol] 0.50 mg/dL 0.20-1.00 [facility] Comment on above: For patients on eltr ombopag therapy, use of Dimension [place] TBIL is not recommended. Chloride [Moles/Vol] 103 mmol/L 98-107 [facility] Eosinophils/100 WBC (Bld) 1.4 % 0-5 [facility] Glucose [Mass/Vol] 111 mg/dL 74-106 [facility] Comment on above: Fasting Glucose resu lt from 100 to 125 mg/dL suggests IMPAIRED HOMEOSTASIS per A.D.A. criteria. Neutrophils (Bld) [#/Vol] 5.9 10*3/uL 2.0-7.7 [facility] Neutrophils/100 WBC (Bld) 74.6 % 47-70 [facility] Potassium [Moles/Vol] 4.2 mmol/L 3.5-5.1 [facility] Protein [Mass/Vol] 7.2 g/dL 6.4-8.2 [facility] Sodium [Moles/Vol] 139 mmol/L 136-145 [facility] WBC (Bld) [#/Vol] 7.9 10*3/uL 4.4-11.0 [facility] Bilirubin Test strip Ql (U)O rdered By: Jann Ramirez on 05-11-2023 Bilirubin Ql (U) Negative Negative [facility] Blood erythrocytes count (nu mber/volume)Ordered By: Jann Ramirez on 05-11-2023 RBC (Bld) [#/Vol] 4.14 10*6/uL 4.6-6.2 [facility] Blood hemoglobin measurement (mass/volume)Ordered By: Jann Ramirez on 05-11-2023 Hemoglobin (Bld) [Mass/Vol] 13.0 g/dL 13.0-16.5 [facility] Blood lymphocytes/100 leukoc ytesOrdered By: Jann Ramirez on 05-11-2023 Lymphocytes/100 WBC (Bld) 13.5 % 19-41 [facility] Blood monocytes/100 leukocyt esOrdered By: Jann Ramirez on 05-11-2023 Monocytes/100 WBC (Bld) 9.2 % 0-10 [facility] Blood platelet mean volumeOr dered By: Jann Ramirez on 05-11-2023 Platelet mean volume (Bld) [Entitic vol] 11.0 fL 6.2-12.0 [facility] Determination of erythrocyte mean corpuscular volume (MCV)Ordered By: Jann Ramirez on 05-11-2023 MCV (RBC) [Entitic vol] 94.9 fL 80-94 [facility] Hematocrit Auto (Bld) [Volum e fraction]Ordered By: Jann Ramirez on 05-11-2023 Hematocrit (Bld) [Volume fraction] 39.3 % 40-54 [facility] Ketones Test strip Ql (U)Ord ered By: Jann Ramirez on 05-11-2023 Ketones Ql (U) Negative Negative [facility] Laboratory - Chemistry and C hemistry - challengeOrdered By: Jann Ramirez on 05-11-2023 ALP [Catalytic activity/Vol] 89 U/L 45-117 [facility] ALT [Catalytic activity/Vol] 34 U/L 16-61 [facility] CO2 [Moles/Vol] 33.0 mmol/L 21.0-32.0 [facility] Globulin (S) [Mass/Vol] 3.3 g/dL 2.2-4.2 [facility] Urea nitrogen/Creatinine [Mass ratio] 21.3 mg/mg 10-20 [facility] Laboratory - Hematology and Cell countsOrdered By: Jann Ramirez on 05-11-2023 Erythrocyte distribution width (RBC) [Entitic vol] 43.7 fL 35.1-43.9 [facility] Erythrocyte distribution width (RBC) [Ratio] 12.7 % 11.6-14.6 [facility] Immature granulocytes/100 WBC (Bld) 0.900 % 0.0-0.9 [facility] Comment on above: IG% - Immature Granu locytes (promyelocytes, myelocytes and metamyelocytes) > 1% indicates that a LEFT SHIFT is Present. MCH (RBC) [Entitic mass] 31.4 pg 27.0-32.0 [facility] Nucleated RBC/100 WBC (Bld) [Ratio] 0 % 0-5 [facility] MCHC Auto (RBC) [Mass/Vol]Or dered By: Jann Ramirez on 05-11-2023 MCHC (RBC) [Mass/Vol] 33.1 g/dL 32-36 [facility] Mucus LM Ql (Urine sed)Order ed By: Jann Ramirez on 05-11-2023 Mucus Ql (Urine sed) 0 SEEN /hpf [facility] Nitrite Test strip Ql (U)Ord ered By: Jann Ramirez on 05-11-2023 Nitrite Ql (U) Negative Negative [facility] No Panel InformationOrdered By: Jann Ramirez on 05-11-2023 Estimated Creatinine Clearance Calc 53.55 ml/min [facility] Estimated GFR (MDRD) Amer 85 mL/min >60 [facility] Comment on above: GFR Calc Estimated GFR (MDRD) Non-Af Amer 70 mL/min >60 [facility] Comment on above: Non- GFR Calc Platelets bldOrdered By: Blossom Ramirez on 05-11-2023 Platelets (Bld) [#/Vol] 189 10*3/uL 150-450 [facility] Protein Test strip Ql (U)Ord ered By: Jann Ramirez on 05-11-2023 Protein Ql (U) 30 mg/dl Negative [facility] Serum or plasma albumin oziel urement (mass/volume)Ordered By: Jann Ramirez on 05-11-2023 Albumin [Mass/Vol] 3.9 g/dL 3.2-5.0 [facility] Serum or plasma albumin/glob ulin mass ratioOrdered By: Jann Ramirez on 05-11-2023 Albumin/Globulin [Mass ratio] 1.2 {ratio} 0.9-2.4 [facility] Serum or plasma calcium oziel urement (mass/volume)Ordered By: Jann Ramirez on 05-11-2023 Calcium [Mass/Vol] 9.0 mg/dL 8.5-10.1 [facility] Serum or plasma creatinine m easurement (mass/volume)Ordered By: Jann Ramirez on 05-11-2023 Creatinine [Mass/Vol] 1.08 mg/dL 0.70-1.30 [facility] Comment on above: The validity of the calculated GFR & GFRAA in patients over 70 years has not been determined. Clinical correlation is essential. Serum or plasma urea nitroge n measurement (mass/volume)Ordered By: Jann Ramirez on 05-11-2023 Urea nitrogen [Mass/Vol] 23 mg/dL 7-18 [facility] Squamous epithelial cells de tection in urine sediment by light microscopyOrdered By: Jann Ramirez on 05-11-2023 Epithelial cells.squamous LM Ql (Urine sed) 0 SEEN /hpf 0-5 [facility] Thin prep Papanicolaou smear with manual screeningOrdered By: Jann Ramirez on 05-11-2023 Thin prep Papanicolaou smear with manual screening 20 U/L 15-37 [facility] Thin prep Papanicolaou smear with manual screening 3 5-15 [facility] Urine blood detectionOrdered By: Jann Ramirez on 05-11-2023 RBC Ql (U) Negative Negative [facility] RBC Ql (U) 0 SEEN /hpf 0-5 [facility] Urine clarityOrdered By: Blossom Ramirez on 05-11-2023 Clarity (U) Clear Clear [facility] Urine color determinationOrd ered By: Jann Ramirez on 05-11-2023 Color (U) Yellow Yellow [facility] Urine glucose detectionOrder ed By: Jann Ramirez on 05-11-2023 Glucose Ql (U) Normal mg/dl Normal [facility] Urine leukocyte esterase det ection by dipstickOrdered By: Jann Ramirez on 05-11-2023 Leukocyte esterase Test strip Ql (U) Negative Negative [facility] Urine pHOrdered By: Jann bolton on 05-11-2023 pH (U) 6.0 [pH] 5.0 - 8.0 [facility] Urine sediment bacteria coun t by microscopy (number/high power field)Ordered By: Jann Ramirez on 05-11-2023 Bacteria LM.HPF (Urine sed) [#/Area] 0 /[HPF] None Seen [facility] Urine specific gravity measu rementOrdered By: Jann Ramirez on 05-11-2023 Specific gravity (U) [Rel density] 1.010 1.002-1.030 [facility] Urobilinogen Auto test strip Ql (U)Ordered By: Jann Ramirez on 05-11-2023 Urobilinogen Ql (U) Normal mg/dl Normal [facility] Basophil percentageOrdered B y: Raissa Cerrato on 03-16-2023 Basophil percentage 3.1 mg/dL 2.5-4.9 [facility] Chloride [Moles/Vol] 105 mmol/L 98-107 [facility] Glucose [Mass/Vol] 119 mg/dL 74-106 [facility] Comment on above: Fasting Glucose resu lt from 100 to 125 mg/dL suggests IMPAIRED HOMEOSTASIS per A.D.A. criteria. Potassium [Moles/Vol] 3.9 mmol/L 3.5-5.1 [facility] Sodium [Moles/Vol] 140 mmol/L 136-145 [facility] Laboratory - Chemistry and C hemistry - challengeOrdered By: Raissa Cerrato on 03-16-2023 CO2 [Moles/Vol] 32.0 mmol/L 21.0-32.0 [facility] Urea nitrogen/Creatinine [Mass ratio] 18.8 mg/mg 10-20 [facility] No Panel InformationOrdered By: Raissa Cerrato on 03-16-2023 Estimated GFR (MDRD) Amer 98 mL/min >60 [facility] Comment on above: GFR Calc Estimated GFR (MDRD) Non-Af Amer 81 mL/min >60 [facility] Comment on above: Non- GFR Calc Serum or plasma albumin oziel urement (mass/volume)Ordered By: Raissa Cerrato on 03-16-2023 Albumin [Mass/Vol] 3.6 g/dL 3.2-5.0 [facility] Serum or plasma calcium oziel urement (mass/volume)Ordered By: Raissa Cerrato on 03-16-2023 Calcium [Mass/Vol] 9.2 mg/dL 8.5-10.1 [facility] Serum or plasma creatinine m easurement (mass/volume)Ordered By: Raissa Cerrato on 03-16-2023 Creatinine [Mass/Vol] 0.96 mg/dL 0.70-1.30 [facility] Comment on above: The validity of the calculated GFR & GFRAA in patients over 70 years has not been determined. Clinical correlation is essential. Serum or plasma urea nitroge n measurement (mass/volume)Ordered By: Raissa Cerrato on 03-16-2023 Urea nitrogen [Mass/Vol] 18 mg/dL 7-18 [facility] Serum or plasma uric acid me asurement (mass/volume)Ordered By: Raissa Cerrato on 03-16-2023 Urate [Mass/Vol] 7.7 mg/dL 3.5-7.2 [facility] Comment on above: The drugs N-Acetylcy steine and Metamizole may falsely depress this assay. Urine creatinine measurement (mass/volume)Ordered By: Raissa Cerrato on 03-16-2023 Creatinine (U) [Mass/Vol] 66.70 mg/dL NO RANGE EST. [facility] Urine protein measurement (m ass/volume)Ordered By: Raissa Cerrato on 03-16-2023 Protein (U) [Mass/Vol] 24.1 mg/dL 0.0-11.8 [facility] Urine protein/creatinine mas s ratioOrdered By: Raissa Cerrato on 03-16-2023 Protein/Creatinine (U) [Mass ratio] 361 mg/g CRE 0-200 [facility] No Panel InformationOrdered By: Edwardo Veliz on 11-26-2022 Prostate Specific Antigen Screen 0.88 ng/mL 0.00-4.00 [facility] Comment on above: This test was perfor med using the TPSA assay method for [employer] chemistry system. Values obtained with differentassay methods cannot be used interchangably.When changing PSA assays in the course of monitoring apatient, additional sequential testing should be carriedout to confirm baseline values. Absolute lymphocyte countOrd ered By: Dr. Pittman on 11-10-2022 Lymphocytes Auto (Unsp spec) [#/Vol] 1.11 10*3/uL 0.83-4.51 [facility] Basophil percentageOrdered B y: Dr. Pittman on 11-10-2022 Basophils/100 WBC (Bld) 0.3 % 0-1 [facility] Bilirubin [Mass/Vol] 0.50 mg/dL 0.20-1.00 [facility] Comment on above: For patients on eltr ombopag therapy, use of Dimension [place] TBIL is not recommended. Chloride [Moles/Vol] 102 mmol/L 98-107 [facility] Eosinophils/100 WBC (Bld) 1.5 % 0-5 [facility] Glucose [Mass/Vol] 132 mg/dL 74-106 [facility] Comment on above: Fasting Glucose resu lt greater than or equal to 126 mg/dL suggests DIABETES MELLITUS per A.D.A. criteria. Neutrophils (Bld) [#/Vol] 6.7 10*3/uL 2.0-7.7 [facility] Neutrophils/100 WBC (Bld) 76.2 % 47-70 [facility] Potassium [Moles/Vol] 4.1 mmol/L 3.5-5.1 [facility] Protein [Mass/Vol] 7.6 g/dL 6.4-8.2 [facility] Sodium [Moles/Vol] 137 mmol/L 136-145 [facility] WBC (Bld) [#/Vol] 8.8 10*3/uL 4.4-11.0 [facility] Blood erythrocytes count (nu mber/volume)Ordered By: Dr. Pittman on 11-10-2022 RBC (Bld) [#/Vol] 4.48 10*6/uL 4.6-6.2 [facility] Blood hemoglobin measurement (mass/volume)Ordered By: Dr. Pittman on 11-10-2022 Hemoglobin (Bld) [Mass/Vol] 13.8 g/dL 13.0-16.5 [facility] Blood lymphocytes/100 leukoc ytesOrdered By: Dr. Pittman on 11-10-2022 Lymphocytes/100 WBC (Bld) 12.6 % 19-41 [facility] Blood monocytes/100 leukocyt esOrdered By: Dr. Pittman on 11-10-2022 Monocytes/100 WBC (Bld) 7.9 % 0-10 [facility] Blood platelet mean volumeOr dered By: Dr. Pittman on 11-10-2022 Platelet mean volume (Bld) [Entitic vol] 10.8 fL 6.2-12.0 [facility] Determination of erythrocyte mean corpuscular volume (MCV)Ordered By: Dr. Pittman on 11-10-2022 MCV (RBC) [Entitic vol] 96.0 fL 80-94 [facility] Hematocrit Auto (Bld) [Volum e fraction]Ordered By: Dr. Pittman on 11-10-2022 Hematocrit (Bld) [Volume fraction] 43.0 % 40-54 [facility] Laboratory - Chemistry and C hemistry - challengeOrdered By: Dr. Pittman on 11-10-2022 ALP [Catalytic activity/Vol] 89 U/L 45-117 [facility] ALT [Catalytic activity/Vol] 44 U/L 16-61 [facility] CO2 [Moles/Vol] 32.0 mmol/L 21.0-32.0 [facility] Globulin (S) [Mass/Vol] 3.6 g/dL 2.2-4.2 [facility] Urea nitrogen/Creatinine [Mass ratio] 20.8 mg/mg 10-20 [facility] Laboratory - Hematology and Cell countsOrdered By: Dr. Pittman on 11-10-2022 Erythrocyte distribution width (RBC) [Entitic vol] 45.0 fL 35.1-43.9 [facility] Erythrocyte distribution width (RBC) [Ratio] 12.7 % 11.6-14.6 [facility] Immature granulocytes/100 WBC (Bld) 1.500 % 0.0-0.9 [facility] Comment on above: IG% - Immature Granu locytes (promyelocytes, myelocytes and metamyelocytes) > 1% indicates that a LEFT SHIFT is Present. MCH (RBC) [Entitic mass] 30.8 pg 27.0-32.0 [facility] Nucleated RBC/100 WBC (Bld) [Ratio] 0 % 0-5 [facility] MCHC Auto (RBC) [Mass/Vol]Or dered By: Dr. Pittman on 11-10-2022 MCHC (RBC) [Mass/Vol] 32.1 g/dL 32-36 [facility] No Panel InformationOrdered By: Dr. Pittman on 11-10-2022 Estimated GFR (MDRD) Amer 76 mL/min >60 [facility] Comment on above: GFR Calc Estimated GFR (MDRD) Non-Af Amer 62 mL/min >60 [facility] Comment on above: Non- GFR Calc Platelets bldOrdered By: Dr. Pittman on 11-10-2022 Platelets (Bld) [#/Vol] 234 10*3/uL 150-450 [facility] Serum or plasma albumin oziel urement (mass/volume)Ordered By: Dr. Pittman on 11-10-2022 Albumin [Mass/Vol] 4.0 g/dL 3.2-5.0 [facility] Serum or plasma albumin/glob ulin mass ratioOrdered By: Dr. Pittman on 11-10-2022 Albumin/Globulin [Mass ratio] 1.1 {ratio} 0.9-2.4 [facility] Serum or plasma calcium oziel urement (mass/volume)Ordered By: Dr. Pittman on 11-10-2022 Calcium [Mass/Vol] 9.6 mg/dL 8.5-10.1 [facility] Serum or plasma creatinine m easurement (mass/volume)Ordered By: Dr. Pittman on 11-10-2022 Creatinine [Mass/Vol] 1.20 mg/dL 0.70-1.30 [facility] Comment on above: The validity of the calculated GFR & GFRAA in patients over 70 years has not been determined. Clinical correlation is essential. Serum or plasma urea nitroge n measurement (mass/volume)Ordered By: Dr. Pittman on 11-10-2022 Urea nitrogen [Mass/Vol] 25 mg/dL 7-18 [facility] Thin prep Papanicolaou smear with manual screeningOrdered By: Dr. Pittman on 11-10-2022 Thin prep Papanicolaou smear with manual screening 26 U/L 15-37 [facility] Thin prep Papanicolaou smear with manual screening 3 5-15 [facility] Absolute lymphocyte counton 05-21-2022 Lymphocytes Auto (Unsp spec) [#/Vol] 1.38 10*3/uL 0.83-4.51 [facility] Work Phone: Basophil percentageon 2021 Basophils/100 WBC (Bld) 0.4 % 0-1 [facility] Work Phone: Bilirubin [Mass/Vol] 0.60 mg/dL 0.20-1.00 [facility] Work Phone: Comment on above: For patients on eltr ombopag therapy, use of Dimension [place] TBIL is not recommended. Chloride [Moles/Vol] 103 mmol/L 98-107 [facility] Work Phone: Eosinophils/100 WBC (Bld) 1.5 % 0-5 [facility] Work Phone: Glucose [Mass/Vol] 117 mg/dL 74-106 [facility] Work Phone: Comment on above: Fasting Glucose resu lt from 100 to 125 mg/dL suggests IMPAIRED HOMEOSTASIS per A.D.A. criteria. Neutrophils (Bld) [#/Vol] 5.8 10*3/uL 2.0-7.7 [facility] Work Phone: Neutrophils/100 WBC (Bld) 71.1 % 47-70 [facility] Work Phone: Potassium [Moles/Vol] 3.9 mmol/L 3.5-5.1 [facility] Work Phone: Protein [Mass/Vol] 7.8 g/dL 6.4-8.2 [facility] Work Phone: Sodium [Moles/Vol] 141 mmol/L 136-145 [facility] Work Phone: WBC (Bld) [#/Vol] 8.1 10*3/uL 4.4-11.0 [facility] Work Phone: Blood erythrocytes count (nu mber/volume)on 05-21-2022 RBC (Bld) [#/Vol] 4.42 10*6/uL 4.6-6.2 [facility] Work Phone: Blood hemoglobin measurement (mass/volume)on 05-21-2022 Hemoglobin (Bld) [Mass/Vol] 13.7 g/dL 13.0-16.5 [facility] Work Phone: Blood lymphocytes/100 leukoc yteson 05-21-2022 Lymphocytes/100 WBC (Bld) 17.1 % 19-41 [facility] Work Phone: Blood monocytes/100 leukocyt eson 05-21-2022 Monocytes/100 WBC (Bld) 8.7 % 0-10 [facility] Work Phone: Blood platelet mean volumeon 05-21-2022 Platelet mean volume (Bld) [Entitic vol] 10.8 fL 6.2-12.0 [facility] Work Phone: Determination of erythrocyte mean corpuscular volume (MCV)on 05-21-2022 MCV (RBC) [Entitic vol] 95.9 fL 80-94 [facility] Work Phone: Hematocrit Auto (Bld) [Volum e fraction]on 05-21-2022 Hematocrit (Bld) [Volume fraction] 42.4 % 40-54 [facility] Work Phone: Laboratory - Chemistry and C hemistry - challengeon 05-21-2022 ALP [Catalytic activity/Vol] 82 U/L 45-117 [facility] Work Phone: ALT [Catalytic activity/Vol] 38 U/L 16-61 [facility] Work Phone: CO2 [Moles/Vol] 32.0 mmol/L 21.0-32.0 [facility] Work Phone: Globulin (S) [Mass/Vol] 3.7 g/dL 2.2-4.2 [facility] Work Phone: Urea nitrogen/Creatinine [Mass ratio] 24.3 mg/mg 10-20 [facility] Work Phone: Laboratory - Hematology and Cell countson 05-21-2022 Erythrocyte distribution width (RBC) [Entitic vol] 43.8 fL 35.1-43.9 [facility] Work Phone: Erythrocyte distribution width (RBC) [Ratio] 12.3 % 11.6-14.6 [facility] Work Phone: Immature granulocytes/100 WBC (Bld) 1.200 % 0.0-0.9 [facility] Work Phone: Comment on above: IG% - Immature Granu locytes (promyelocytes, myelocytes and metamyelocytes) > 1% indicates that a LEFT SHIFT is Present. MCH (RBC) [Entitic mass] 31.0 pg 27.0-32.0 [facility] Work Phone: Nucleated RBC/100 WBC (Bld) [Ratio] 0 % 0-5 [facility] Work Phone: MCHC Auto (RBC) [Mass/Vol]on 05-21-2022 MCHC (RBC) [Mass/Vol] 32.3 g/dL 32-36 [facility] Work Phone: No Panel Informationon 05-21 Estimated GFR (MDRD) Amer 90 mL/min >60 [facility] Work Phone: Comment on above: GFR Calc Estimated GFR (MDRD) Non-Af Amer 75 mL/min >60 [facility] Work Phone: Comment on above: Non- GFR Calc Platelets bldon 05-21-2022 Platelets (Bld) [#/Vol] 212 10*3/uL 150-450 [facility] Work Phone: Serum or plasma albumin oziel urement (mass/volume)on 05-21-2022 Albumin [Mass/Vol] 4.1 g/dL 3.2-5.0 [facility] Work Phone: Serum or plasma albumin/glob ulin mass ratioon 05-21-2022 Albumin/Globulin [Mass ratio] 1.1 {ratio} 0.9-2.4 [facility] Work Phone: Serum or plasma calcium oziel urement (mass/volume)on 05-21-2022 Calcium [Mass/Vol] 9.8 mg/dL 8.5-10.1 [facility] Work Phone: Serum or plasma creatinine m easurement (mass/volume)on 05-21-2022 Creatinine [Mass/Vol] 1.03 mg/dL 0.70-1.30 [facility] Work Phone: Comment on above: The validity of the calculated GFR & GFRAA in patients over 70 years has not been determined. Clinical correlation is essential. Serum or plasma urea nitroge n measurement (mass/volume)on 05-21-2022 Urea nitrogen [Mass/Vol] 25 mg/dL 7-18 [facility] Work Phone: Thin prep Papanicolaou smear with manual screeningon 05-21-2022 Thin prep Papanicolaou smear with manual screening 25 U/L 15-37 [facility] Work Phone: Thin prep Papanicolaou smear with manual screening 6 5-15 [facility] Work Phone: UA DIP, URINE (POC)on 2021 BILIRUBIN UA (POCT) Negative Negative [facility] CLARITY UA (POCT) Clear [facility] COLOR UA (POCT) Light yellow [facility] GLUCOSE UA (POCT) Negative Negative mg/dL [facility] HEMOGLOBIN/BLOOD UA (POCT) Negative Negative [facility] KETONE UA (POCT) Negative Negative mg/dL [facility] LEUKOCYTES UA (POCT) [facility] NITRITE UA (POCT) Negative Negative [facility] PH UA (POCT) 7.0 4.5 - 8.0 [facility] Protein Ql (U) Negative Negative mg/dL [facility] SPECIFIC GRAVITY UA (POCT) 1.020 1.005 - 1.030 [facility] UROBILINOGEN UA (POCT) 0.2 E.U./dL Agueda l E.U./dL [facility] Basophil percentageon 2021 Basophil percentage 3.4 mg/dL 2.5-4.9 [facility] Work Phone: Chloride [Moles/Vol] 104 mmol/L 98-107 [facility] Work Phone: Glucose [Mass/Vol] 116 mg/dL 74-106 [facility] Work Phone: Comment on above: Fasting Glucose resu lt from 100 to 125 mg/dL suggests IMPAIRED HOMEOSTASIS per A.D.A. criteria. Potassium [Moles/Vol] 4.0 mmol/L 3.5-5.1 [facility] Work Phone: Sodium [Moles/Vol] 140 mmol/L 136-145 [facility] Work Phone: Laboratory - Chemistry and C hemistry - challengeon 02-24-2022 CO2 [Moles/Vol] 31.0 mmol/L 21.0-32.0 [facility] Work Phone: Urea nitrogen/Creatinine [Mass ratio] 20.0 mg/mg 10-20 [facility] Work Phone: No Panel Informationon 02-24 Estimated GFR (MDRD) Amer 84 mL/min >60 [facility] Work Phone: Comment on above: GFR Calc Estimated GFR (MDRD) Non-Af Amer 69 mL/min >60 [facility] Work Phone: Comment on above: Non- GFR Calc Serum or plasma albumin oziel urement (mass/volume)on 02-24-2022 Albumin [Mass/Vol] 3.8 g/dL 3.2-5.0 [facility] Work Phone: Serum or plasma calcium oziel urement (mass/volume)on 02-24-2022 Calcium [Mass/Vol] 9.1 mg/dL 8.5-10.1 [facility] Work Phone: Serum or plasma creatinine m easurement (mass/volume)on 02-24-2022 Creatinine [Mass/Vol] 1.10 mg/dL 0.70-1.30 [facility] Work Phone: Comment on above: The validity of the calculated GFR & GFRAA in patients over 70 years has not been determined. Clinical correlation is essential. Serum or plasma urea nitroge n measurement (mass/volume)on 02-24-2022 Urea nitrogen [Mass/Vol] 22 mg/dL 7-18 [facility] Work Phone: Serum or plasma uric acid me asurement (mass/volume)on 02-24-2022 Urate [Mass/Vol] 7.7 mg/dL 3.5-7.2 [facility] Work Phone: Comment on above: The drugs N-Acetylcy steine and Metamizole may falsely depress this assay. Urine creatinine measurement (mass/volume)on 02-24-2022 Creatinine (U) [Mass/Vol] 85.40 mg/dL NO RANGE EST. [facility] Work Phone: Urine protein measurement (m ass/volume)on 02-24-2022 Protein (U) [Mass/Vol] 24.4 mg/dL 0.0-11.8 [facility] Work Phone: Urine protein/creatinine mas s ratioon 02-24-2022 Protein/Creatinine (U) [Mass ratio] 286 mg/g CRE 0-200 [facility] Work Phone: Absolute lymphocyte counton 11-18-2021 Lymphocytes Auto (Unsp spec) [#/Vol] 1.27 10*3/uL 0.83-4.51 [facility] Work Phone: Basophil percentageon 2021 Basophils/100 WBC (Bld) 0.3 % 0-1 [facility] Work Phone: Bilirubin [Mass/Vol] 0.60 mg/dL 0.20-1.00 [facility] Work Phone: Comment on above: For patients on eltr ombopag therapy, use of Dimension [place] TBIL is not recommended. Chloride [Moles/Vol] 105 mmol/L 98-107 [facility] Work Phone: Eosinophils/100 WBC (Bld) 1.5 % 0-5 [facility] Work Phone: Glucose [Mass/Vol] 105 mg/dL 74-106 [facility] Work Phone: Comment on above: Fasting Glucose resu lt from 100 to 125 mg/dL suggests IMPAIRED HOMEOSTASIS per A.D.A. criteria. Neutrophils (Bld) [#/Vol] 5.9 10*3/uL 2.0-7.7 [facility] Work Phone: Neutrophils/100 WBC (Bld) 73.9 % 47-70 [facility] Work Phone: Potassium [Moles/Vol] 4.3 mmol/L 3.5-5.1 [facility] Work Phone: Protein [Mass/Vol] 7.6 g/dL 6.4-8.2 [facility] Work Phone: Sodium [Moles/Vol] 139 mmol/L 136-145 [facility] Work Phone: WBC (Bld) [#/Vol] 8.0 10*3/uL 4.4-11.0 [facility] Work Phone: Blood erythrocytes count (nu mber/volume)on 11-18-2021 RBC (Bld) [#/Vol] 4.61 10*6/uL 4.6-6.2 [facility] Work Phone: Blood hemoglobin measurement (mass/volume)on 11-18-2021 Hemoglobin (Bld) [Mass/Vol] 14.1 g/dL 13.0-16.5 [facility] Work Phone: Blood lymphocytes/100 leukoc yteson 11-18-2021 Lymphocytes/100 WBC (Bld) 15.9 % 19-41 [facility] Work Phone: Blood monocytes/100 leukocyt eson 11-18-2021 Monocytes/100 WBC (Bld) 7.9 % 0-10 [facility] Work Phone: Blood platelet mean volumeon 11-18-2021 Platelet mean volume (Bld) [Entitic vol] 11.4 fL 6.2-12.0 [facility] Work Phone: Determination of erythrocyte mean corpuscular volume (MCV)on 11-18-2021 MCV (RBC) [Entitic vol] 92.8 fL 80-94 [facility] Work Phone: Hematocrit Auto (Bld) [Volum e fraction]on 11-18-2021 Hematocrit (Bld) [Volume fraction] 42.8 % 40-54 [facility] Work Phone: Laboratory - Chemistry and C hemistry - challengeon 11-18-2021 ALP [Catalytic activity/Vol] 77 U/L 45-117 [facility] Work Phone: ALT [Catalytic activity/Vol] 33 U/L 16-61 [facility] Work Phone: CO2 [Moles/Vol] 29.0 mmol/L 21.0-32.0 [facility] Work Phone: Globulin (S) [Mass/Vol] 3.6 g/dL 2.2-4.2 [facility] Work Phone: Urea nitrogen/Creatinine [Mass ratio] 16.5 mg/mg 10-20 [facility] Work Phone: Laboratory - Hematology and Cell countson 11-18-2021 Erythrocyte distribution width (RBC) [Entitic vol] 42.2 fL 35.1-43.9 [facility] Work Phone: Erythrocyte distribution width (RBC) [Ratio] 12.4 % 11.6-14.6 [facility] Work Phone: Immature granulocytes/100 WBC (Bld) 0.500 % 0.0-0.9 [facility] Work Phone: Comment on above: IG% - Immature Granu locytes (promyelocytes, myelocytes and metamyelocytes) > 1% indicates that a LEFT SHIFT is Present. MCH (RBC) [Entitic mass] 30.6 pg 27.0-32.0 [facility] Work Phone: Nucleated RBC/100 WBC (Bld) [Ratio] 0 % 0-5 [facility] Work Phone: MCHC Auto (RBC) [Mass/Vol]on 11-18-2021 MCHC (RBC) [Mass/Vol] 32.9 g/dL 32-36 [facility] Work Phone: No Panel Informationon 11-18 Estimated GFR (MDRD) Amer 90 mL/min >60 [facility] Work Phone: Comment on above: GFR Calc Estimated GFR (MDRD) Non-Af Amer 75 mL/min >60 [facility] Work Phone: Comment on above: Non- GFR Calc Prostate Specific Antigen Screen 0.94 ng/mL 0.00-4.00 [facility] Work Phone: Comment on above: This test was perfor med using the TPSA assay method for [facility] chemistry system. Values obtained with differentassay methods cannot be used interchangably.When changing PSA assays in the course of monitoring apatient, additional sequential testing should be carriedout to confirm baseline values. Platelets bldon 11-18-2021 Platelets (Bld) [#/Vol] 206 10*3/uL 150-450 [facility] Work Phone: Serum or plasma albumin oziel urement (mass/volume)on 11-18-2021 Albumin [Mass/Vol] 4.0 g/dL 3.2-5.0 [facility] Work Phone: Serum or plasma albumin/glob ulin mass ratioon 11-18-2021 Albumin/Globulin [Mass ratio] 1.1 {ratio} 0.9-2.4 [facility] Work Phone: Serum or plasma calcium oziel urement (mass/volume)on 11-18-2021 Calcium [Mass/Vol] 9.4 mg/dL 8.5-10.1 [facility] Work Phone: Serum or plasma creatinine m easurement (mass/volume)on 11-18-2021 Creatinine [Mass/Vol] 1.03 mg/dL 0.70-1.30 [facility] Work Phone: Comment on above: The validity of the calculated GFR & GFRAA in patients over 70 years has not been determined. Clinical correlation is essential. Serum or plasma urea nitroge n measurement (mass/volume)on 11-18-2021 Urea nitrogen [Mass/Vol] 17 mg/dL 7-18 [facility] Work Phone: Thin prep Papanicolaou smear with manual screeningon 11-18-2021 Thin prep Papanicolaou smear with manual screening 25 U/L 15-37 [facility] Work Phone: Thin prep Papanicolaou smear with manual screening 5 5-15 [facility] Work Phone: XR Chest PA and Lateralon IMPRESSION: Overall findings unchanged. Health And Safety Inspector: JUSTIN Transcribe Date/Time: Oct 30 2020 10:57A Dictated by : BRIAN RUIZ MD This examination was interpreted and the report reviewed and electronically signed by: BRIAN RUIZ MD on Oct 30 2020 11:23AM [facility] DIVISION OF RADIOLOGY * * *Final Report* * * DATE OF EXAM: Oct 30 2020 10:35AM WOX [id number] - XR CHEST 2V FRONTAL/LAT / PROCEDURE REASON: Wheezing * * * * Physician Interpretation * * * * EXAMINATION: CHEST RADIOGRAPH (2 VIEW FRONTAL & LATERAL) CLINICAL HISTORY: Wheezing MQ: XC2_6 EXAM DATE/TIME: 10/30/2020 10:35 AM COMPARISON: Chest x-ray on 05/04/2016. RESULT: Lines, tubes, and devices: None. Lungs and pleura: Persistent elevation of the right hemidiaphragm is again demonstrated, with associated right lower lung atelectasis/infiltrates. The left lung is clear. There is large left-sided pericardial fat pad. No pleural effusions or pneumothorax. Cardiomediastinal silhouette: Stable cardiac silhouette and mediastinal contour. Bones and soft tissues: There are degenerative changes in the spine. DIVISION OF RADIOLOGY Provider, [facility] - 10/30/2020 * * *Final Report* * * DATE OF EXAM: Oct 30 2020 10:35AM WOX [id number] - XR CHEST 2V FRONTAL/LAT / PROCEDURE REASON: Wheezing * * * * Physician Interpretation * * * * EXAMINATION: CHEST RADIOGRAPH (2 VIEW FRONTAL & LATERAL) CLINICAL HISTORY: Wheezing MQ: XC2_6 EXAM DATE/TIME: 10/30/2020 10:35 AM COMPARISON: Chest x-ray on 05/04/2016. RESULT: Lines, tubes, and devices: None. Lungs and pleura: Persistent elevation of the right hemidiaphragm is again demonstrated, with associated right lower lung atelectasis/infiltrates. The left lung is clear. There is large left-sided pericardial fat pad. No pleural effusions or pneumothorax. Cardiomediastinal silhouette: Stable cardiac silhouette and mediastinal contour. Bones and soft tissues: There are degenerative changes in the spine. IMPRESSION IMPRESSION: Overall findings unchanged. Health And Safety Inspector: JUSTIN Transcribe Date/Time: Oct 30 2020 10:57A Dictated by : BRIAN RUIZ MD This examination was interpreted and the report reviewed and electronically signed by: BRIAN RUIZ MD on Oct 30 2020 11:23AM EST [facility] Radiology Study observation (narrative) [facility] XR Chest PA and LateralOrder ed By: [facility] Provider on 10-30-2020 [facility] Vital Signs Date Time Vital Sign Value Performing Clinician Facility 03-13-2025 07:52-0400 Body mass index (BMI) [Ratio] 38.27 kg/m2 Uzma Hanley APRN.[employer] Work Phone: [facility] 03-13-2025 07:52-0400 Body weight 104.33 kg Uzma Hanley APRN.[employer] Work Phone: [facility] 03-13-2025 07:52-0400 Diastolic blood pressure 72 mm[Hg] Uzma Hanley APRN.[employer] Work Phone: [facility] 03-13-2025 07:52-0400 Heart rate 66 /min Uzma Hanley APRN.[employer] Work Phone: [facility] 03-13-2025 07:52-0400 SaO2% (BldA) [Mass fraction] 95 % Uzma Hanley APRN.[employer] Work Phone: [facility] 03-13-2025 07:52-0400 Systolic blood pressure 128 mm[Hg] Uzma Hanley APRN.[employer] Work Phone: [facility] 02-07-2025 09:00-0400 Diastolic blood pressure 78 mm[Hg] Uzma Hanley APRN.[employer] Work Phone: [facility] 02-07-2025 09:00-0400 Systolic blood pressure 132 mm[Hg] Uzma Hanley APRN.[employer] Work Phone: [facility] 02-07-2025 07:44-0400 Body height 165.1 cm Uzma Hanley APRN.[employer] Work Phone: [facility] 02-07-2025 07:44-0400 Body mass index (BMI) [Ratio] 38.31 kg/m2 Uzma Hanley APRN.[employer] Work Phone: [facility] 02-07-2025 07:44-0400 Body weight 104.42 kg Uzma Haagen [employer] Work Phone: [facility] 02-07-2025 07:44-0400 Heart rate 87 /min Uzma Haagen [employer] Work Phone: [facility] 02-07-2025 07:44-0400 Respiratory rate 16 /min Uzma Haagen [employer] Work Phone: [facility] 02-07-2025 07:44-0400 SaO2% (BldA) [Mass fraction] 96 % Uzma Haagen [employer] Work Phone: [facility] 01-29-2025 10:53-0400 Body height 165.1 cm Chema Oreilly MD Work Phone: [facility] 01-29-2025 10:53-0400 Body mass index (BMI) [Ratio] 38.61 kg/m2 Chema Oreilly MD Work Phone: [facility] 01-29-2025 10:53-0400 Body weight 105.23 kg Chema Oreilly MD Work Phone: [facility] 01-29-2025 10:53-0400 Diastolic blood pressure 60 mm[Hg] Chema Oreilly MD Work Phone: [facility] 01-29-2025 10:53-0400 Heart rate 86 /min Chema Oreilly MD Work Phone: [facility] 01-29-2025 10:53-0400 Respiratory rate 14 /min Chema Oreilly MD Work Phone: [facility] 01-29-2025 10:53-0400 SaO2% (BldA) [Mass fraction] 96 % hCema Oreilly MD Work Phone: [facility] 01-29-2025 10:53-0400 Systolic blood pressure 116 mm[Hg] Chema Oreilly MD Work Phone: [facility] 01-17-2025 09:58-0400 Body height 167.6 cm Pulm Wstr Work Phone: [facility] 01-17-2025 09:58-0400 Body mass index (BMI) [Ratio] 36.5 kg/m2 Pulm Wstr Work Phone: [facility] 01-17-2025 09:58-0400 Body weight 102.51 kg Pulm Wstr Work Phone: [facility] 01-10-2025 08:24-0400 Body mass index (BMI) [Ratio] 35.87 kg/m2 Miguelangel Courtney MD Work Phone: [facility] 01-10-2025 08:24-0400 Body weight 103.87 kg Miguelangel Courtney MD Work Phone: [facility] 01-10-2025 08:24-0400 Diastolic blood pressure 82 mm[Hg] Miguelangel Courtney MD Work Phone: [facility] 01-10-2025 08:24-0400 Heart rate 82 /min Miguelangel Courtney MD Work Phone: [facility] 01-10-2025 08:24-0400 SaO2% (BldA) [Mass fraction] 96 % Miguelangel Courtney MD Work Phone: [facility] 01-10-2025 08:24-0400 Systolic blood pressure 142 mm[Hg] Miguelangel Courtney MD Work Phone: [facility] 12-18-2024 12:56-0400 Body mass index (BMI) [Ratio] 36.18 kg/m2 Willow Suppan [employer] Work Phone: [facility] 12-18-2024 12:56-0400 Body temperature 98.4 [degF] Willow Suppan [employer] Work Phone: [facility] 12-18-2024 12:56-0400 Body weight 104.78 kg Willow Suppan [employer] ANN[employer]NCER Work Phone: [facility] 12-18-2024 12:56-0400 Diastolic blood pressure 66 mm[Hg] Willow Suppan [employer] ANNOUNCER Work Phone: [facility] 12-18-2024 12:56-0400 Heart rate 78 /min Willow Marcelo ON [employer]ERSON[employer]ITY.[employer] ANNOUNCER Work Phone: [facility] 12-18-2024 12:56-0400 SaO2% (BldA) [Mass fraction] 96 % Willow Suppclayton ON [employer]ERSONALITY.TRAIN ANNOUNCER Work Phone: [facility] 12-18-2024 12:56-0400 Systolic blood pressure 128 mm[Hg] Willow Suppclayton ON [employer]ERSON[employer]ITY.TRAIN ANNOUNCER Work Phone: [facility] 12-12-2024 14:03-0400 Body height 170.2 cm Stephon Negron PA-C Work Phone: [facility] Comment on above: Verbal 12-12-2024 14:03-0400 Body mass index (BMI) [Ratio] 36.18 kg/m2 Stephon Negron PA-C Work Phone: [facility] 12-12-2024 14:03-0400 Body temperature 97.81 [degF] Stephon Negron PA-C Work Phone: [facility] 12-12-2024 14:03-0400 Body weight 104.78 kg Stephon Negron PA-C Work Phone: [facility] 12-12-2024 14:03-0400 Diastolic blood pressure 68 mm[Hg] Stephon Negron PA-C Work Phone: [facility] 12-12-2024 14:03-0400 Heart rate 96 /min Stephon Negron PA-C Work Phone: [facility] 12-12-2024 14:03-0400 Respiratory rate 18 /min Stephon Negron PA-C Work Phone: [facility] 12-12-2024 14:03-0400 SaO2% (BldA) [Mass fraction] 100 % Stephon Negron PA-C Work Phone: [facility] 12-12-2024 14:03-0400 Systolic blood pressure 120 mm[Hg] Stephon Negron PA-C Work Phone: [facility] 10-23-2024 08:09-0400 Body height 172.7 cm Chema Oreilly MD Work Phone: [facility] 10-23-2024 08:09-0400 Body mass index (BMI) [Ratio] 36.04 kg/m2 Chema Oreilly MD Work Phone: [facility] 10-23-2024 08:09-0400 Body weight 107.5 kg Chema Oreilly MD Work Phone: [facility] 10-23-2024 08:09-0400 Diastolic blood pressure 60 mm[Hg] Chema Oreilly MD Work Phone: [facility] 10-23-2024 08:09-0400 Heart rate 78 /min Chema Oreilly MD Work Phone: [facility] 10-23-2024 08:09-0400 Respiratory rate 14 /min Chema Oreilly MD Work Phone: [facility] 10-23-2024 08:09-0400 SaO2% (BldA) [Mass fraction] 95 % Chema Oreilly MD Work Phone: [facility] 10-23-2024 08:09-0400 Systolic blood pressure 122 mm[Hg] Chema Oreilly MD Work Phone: [facility] 09-28-2024 10:49-0400 Body mass index (BMI) [Ratio] 36.96 kg/m2 Lashaun Marky ON [employer]ERSON[employer]ITY.[employer] ANNOUNCER Work Phone: [facility] 09-28-2024 10:49-0400 Body temperature 98.1 [degF] Lashaun Marky ON [employer] PERSONALITY.TRAIN ANNOUNCER Work Phone: [facility] 09-28-2024 10:49-0400 Body weight 107.05 kg Lashaun Marky ON [employer] PERSONALITY.TRAIN ANNOUNCER Work Phone: [facility] 09-28-2024 10:49-0400 Diastolic blood pressure 64 mm[Hg] Lashaun Marky ON [employer]ERSON[employer]ITY.TRAIN ANNOUNCER Work Phone: [facility] 09-28-2024 10:49-0400 Heart rate 94 /min Lashaun Marky ON AIR PERSONALITY.TRAIN ANNOUNCER Work Phone: [facility] 09-28-2024 10:49-0400 Respiratory rate 16 /min Lashaun Marky ON [employer] PERSONALITY.TRAIN ANNOUNCER Work Phone: [facility] 09-28-2024 10:49-0400 SaO2% (BldA) [Mass fraction] 94 % Lashaun Marky ON [employer]ERSONALITY.TRAIN ANNOUNCER Work Phone: [facility] 09-28-2024 10:49-0400 Systolic blood pressure 118 mm[Hg] Lashaun Marky ON [employer]ERSON[employer] ANNOUNCER Work Phone: [facility] 09-25-2024 17:34-0400 Diastolic blood pressure 78 mm[Hg] Miguelangel Courtney MD Work Phone: [facility] 09-25-2024 17:34-0400 Systolic blood pressure 132 mm[Hg] Miguelangel Courtney MD Work Phone: [facility] 09-25-2024 17:11-0400 Body mass index (BMI) [Ratio] 37.28 kg/m2 Miguelangel Courtney MD Work Phone: [facility] 09-25-2024 17:11-0400 Body weight 107.96 kg Miguelangel Courtney MD Work Phone: [facility] 09-25-2024 17:11-0400 Heart rate 77 /min Miguelangel Courtney MD Work Phone: [facility] 09-25-2024 17:11-0400 SaO2% (BldA) [Mass fraction] 95 % Miguelangel Courtney MD Work Phone: [facility] 05-30-2024 09:31-0500 Body mass index (BMI) [Ratio] 38.53 kg/m2 Stephon RAMOSC Work Phone: [facility] 05-30-2024 09:31-0500 Body weight 111.58 kg Stephon Negron PA-C Work Phone: [facility] 05-30-2024 09:31-0500 Diastolic blood pressure 82 mm[Hg] Stephon Negron PA-C Work Phone: [facility] 05-30-2024 09:31-0500 Heart rate 80 /min Stephon Negron PA-C Work Phone: [facility] 05-30-2024 09:31-0500 SaO2% (BldA) [Mass fraction] 94 % Stephon Negron PA-C Work Phone: [facility] 05-30-2024 09:31-0500 Systolic blood pressure 136 mm[Hg] Stephon Negron PA-C Work Phone: [facility] 02-11-2024 11:01-0400 Body mass index (BMI) [Ratio] 37.12 kg/m2 Miguelangel Courtney MD Work Phone: [facility] 02-11-2024 11:01-0400 Body weight 107.5 kg Miguelangel Courtney MD Work Phone: [facility] 02-11-2024 11:01-0400 Diastolic blood pressure 62 mm[Hg] Miguelangel Courtney MD Work Phone: [facility] 02-11-2024 11:01-0400 Heart rate 81 /min Miguelangel Courtney MD Work Phone: [facility] 02-11-2024 11:01-0400 SaO2% (BldA) [Mass fraction] 93 % Miguelangel Courtney MD Work Phone: [facility] 02-11-2024 11:01-0400 Systolic blood pressure 108 mm[Hg] Miguelangel Courtney MD Work Phone: [facility] 11-19-2023 10:17-0400 Diastolic blood pressure 78 mm[Hg] Miguelangel Courtney MD Work Phone: [facility] 11-19-2023 10:17-0400 Systolic blood pressure 138 mm[Hg] Miguelangel Courtney MD Work Phone: [facility] 11-19-2023 09:35-0400 Body height 170.2 cm Miguelangel Courtney MD Work Phone: [facility] 11-19-2023 09:35-0400 Body mass index (BMI) [Ratio] 37.43 kg/m2 Miguelangel Courtney MD Work Phone: [facility] 11-19-2023 09:35-0400 Body weight 108.41 kg Miguelangel Courtney MD Work Phone: [facility] 11-19-2023 09:35-0400 Heart rate 80 /min Miguelangel Courtney MD Work Phone: [facility] 11-19-2023 09:35-0400 SaO2% (BldA) [Mass fraction] 98 % Miguelangel Courtney MD Work Phone: [facility] 10-11-2023 09:53-0400 Body weight 108.86 kg Chema Oreilly MD Work Phone: [facility] 10-11-2023 09:53-0400 Diastolic blood pressure 81 mm[Hg] Chema Oreilly MD Work Phone: [facility] 10-11-2023 09:53-0400 Heart rate 82 /min Chema Oreilly MD Work Phone: [facility] 10-11-2023 09:53-0400 SaO2% (BldA) [Mass fraction] 95 % Chema Oreilly MD Work Phone: [facility] 10-11-2023 09:53-0400 Systolic blood pressure 166 mm[Hg] Chema Oreilly MD Work Phone: [facility] 05-26-2023 09:22-0500 Body height 170.2 cm Miguelangel Courtney MD Work Phone: [facility] 05-26-2023 09:22-0500 Body temperature 96.4 [degF] Miguelangel Courtney MD Work Phone: [facility] 05-26-2023 09:22-0500 Body weight 110.22 kg Miguelangel Courtney MD Work Phone: [facility] 05-26-2023 09:22-0500 Diastolic blood pressure 65 mm[Hg] Miguelangel Courtney MD Work Phone: [facility] 05-26-2023 09:22-0500 Heart rate 77 /min Miguelangel Courtney MD Work Phone: [facility] 05-26-2023 09:22-0500 Systolic blood pressure 113 mm[Hg] Miguelangel Courtney MD Work Phone: [facility] 05-25-2023 09:29-0500 Body height 170.2 cm Stephon Negron PA-C Work Phone: [facility] 05-25-2023 09:29-0500 Body temperature 97 [degF] Stepohn Negron PA-C Work Phone: [facility] 05-25-2023 09:29-0500 Body weight 109.86 kg Stephon Negron PA-C Work Phone: [facility] 05-25-2023 09:29-0500 Diastolic blood pressure 72 mm[Hg] Stephon Negron PA-C Work Phone: [facility] 05-25-2023 09:29-0500 Heart rate 100 /min Stephon Negron PA-C Work Phone: [facility] 05-25-2023 09:29-0500 SaO2% (BldA) [Mass fraction] 94 % Stephon Negron PA-C Work Phone: [facility] 05-25-2023 09:29-0500 Systolic blood pressure 132 mm[Hg] Stephon Negron PA-C Work Phone: [facility] 05-11-2023 15:05-0400 Diastolic blood pressure 83 mm[Hg] [facility] 05-11-2023 15:05-0400 Heart rate 68 /min [facility] 05-11-2023 15:05-0400 Respiratory rate 16 /min [facility] 05-11-2023 15:05-0400 SaO2% (BldA) [Mass fraction] 96 % [facility] 05-11-2023 15:05-0400 Systolic blood pressure 154 mm[Hg] [facility] 05-11-2023 10:35-0400 Body mass index (BMI) [Ratio] 37.8 kg/m2 [facility] 05-11-2023 10:35-0400 Body weight 109.7 kg [facility] 05-11-2023 [id number] Body height 170.18 cm [facility] 05-11-2023 10:21-0400 Body temperature 96.5 [degF] [facility] 11-11-2022 10:35-0400 Body height 170.2 cm Miguelangel Courtney MD Work Phone: [facility] 11-11-2022 10:35-0400 Body weight 107.5 kg Miguelangel Courtney MD Work Phone: [facility] 11-11-2022 10:35-0400 Diastolic blood pressure 68 mm[Hg] Miguelangel Courtney MD Work Phone: [facility] 11-11-2022 10:35-0400 Heart rate 82 /min Miguelangel Courteny MD Work Phone: [facility] 11-11-2022 10:35-0400 SaO2% (BldA) [Mass fraction] 95 % Miguelangel Courtney MD Work Phone: [facility] 11-11-2022 10:35-0400 Systolic blood pressure 138 mm[Hg] Miguelangel Courtney MD Work Phone: [facility] 09-28-2022 11:14-0400 Body height 170.2 cm Chema Oreilly MD Work Phone: [facility] 09-28-2022 11:140400 Body weight 108.68 kg Chema Oreilly MD Work Phone: [facility] 09-28-2022 11:14-0400 Diastolic blood pressure 76 mm[Hg] Chema Oreilly MD Work Phone: [facility] 09-28-2022 11:14-0400 Heart rate 77 /min Chema Oreilly MD Work Phone: [facility] 09-28-2022 11:14-0400 SaO2% (BldA) [Mass fraction] 95 % Chema Oreilly MD Work Phone: [facility] 09-28-2022 11:14-0400 Systolic blood pressure 126 mm[Hg] Chema Oreilly MD Work Phone: [facility] 05-14-2022 09:22-0400 Body weight 104.78 kg Miguelangel Courtney MD Work Phone: [facility] 05-14-2022 09:22-0400 Diastolic blood pressure 74 mm[Hg] Miguelangel Courtney MD Work Phone: [facility] 05-14-2022 09:22-0400 Heart rate 76 /min Miguelangel Courtney MD Work Phone: [facility] 05-14-2022 09:22-0400 SaO2% (BldA) [Mass fraction] 95 % Miguelangel Courtney MD Work Phone: [facility] 05-14-2022 09:22-0400 Systolic blood pressure 122 mm[Hg] Miguelangel Courtney MD Work Phone: [facility] 04-07-2022 08:58-0400 Body height 170.2 cm Stephon Negron PA-C Work Phone: [facility] 04-07-2022 08:58-0400 Body temperature 97 [degF] Stephon Negron PA-C Work Phone: [facility] 04-07-2022 08:58-0400 Body weight 104.33 kg Stephon Negron PA-C Work Phone: [facility] 04-07-2022 08:58-0400 Diastolic blood pressure 70 mm[Hg] Stephon Negron PA-C Work Phone: [facility] 04-07-2022 08:58-0400 Heart rate 98 /min Stephon Negron PA-C Work Phone: [facility] 04-07-2022 08:58-0400 Respiratory rate 16 /min Stephon Negron PA-C Work Phone: [facility] 04-07-2022 08:58-0400 SaO2% (BldA) [Mass fraction] 92 % Stephon DEAN-Kat Work Phone: [facility] 04-07-2022 08:58-0400 Systolic blood pressure 120 mm[Hg] Stephon DEAN-Kat Work Phone: [facility] 11-07-2021 08:46-0400 Body weight 102.51 kg Miguelangel Courtney MD Work Phone: [facility] 11-07-2021 08:46-0400 Diastolic blood pressure 82 mm[Hg] Miguelangel Courtney MD Work Phone: [facility] 11-07-2021 08:46-0400 Heart rate 68 /min Miguelangel Courtney MD Work Phone: [facility] 11-07-2021 08:46-0400 Systolic blood pressure 136 mm[Hg] Miguelangel Courtney MD Work Phone: [facility] Encounters Encounter Date Encounter Type Care Provider Facility Start: 05-11-2025 End: 05-11-2025 ambulatory ZURDO PATEL Facility:[id number] Start: 04-18-2025 End: 04-19-2025 ambulatory MIGUELANGEL COURTNEY Facility:[facility] Start: 04-17-2025 End: 04-17-2025 ambulatory MIGUELANGEL COURTNEY Facility:[facility] Start: 04-16-2025 End: 04-16-2025 ambulatory Beulah Pittman Facility:[facility] Start: 04-09-2025 End: 04-09-2025 ambulatory MIGUELANGEL COURTNEY Facility:[facility] Start: 04-09-2025 Patient encounter procedure MIGUELANGEL COURTNEY [facility] Start: 03-26-2025 End: 03-26-2025 ambulatory Deidre Soto MD Work Phone: Pulmonary Medicine Comment on above: Home Sleep Study Start: 03-26-2025 End: 03-26-2025 E-mail encounter from caregiver Deidre Soto MD Work Phone: Pulmonary Medicine Start: 03-16-2025 End: 03-16-2025 Telephone encounter Deidre Soto MD Work Phone: Pulmonary Medicine Comment on above: Results (Sniff test and oximetry) Start: 03-13-2025 ambulatory UNKNOWN PROVIDER Facili ty:[facility] Start: 03-13-2025 End: 03-13-2025 Subsequent hospital visit by physician Gi/Gu 1 [facility] Work Phone: Radiology Comment on above: 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] Start: 03-13-2025 End: 03-13-2025 Office outpatient visit 15 minutes Uzma Hanley [employer] ANNOUNCER Work Phone: Family Medicine [place] Comment on above: Essential (primary) hypertension Start: 03-13-2025 End: 03-13-2025 ambulatory [facility] Facility:[facility] Start: 02-15-2025 End: 02-15-2025 ambulatory [facility] Facility:[facility] Start: 02-07-2025 End: 02-08-2025 Telephone encounter Uzma Hanley APRN.TRAIN ANNOUNCER Work Phone: Family [facility] Comment on above: Patient Update Start: 02-07-2025 End: 02-07-[address] Miguelangel Courtney MD Work Phone: -[facility] [place] Start: 02-07-2025 End: 02-07-[address] Raissa Cerrato DO -[facility] [place] Work Phone: Start: 02-07-2025 End: 02-07-2025 Office outpatient visit 15 minutes Umza Hanley ON [employer]ERSON[employer]ITY.[employer] ANNOUNCER Work Phone: Family [facility] Comment on above: Essential (primary) hypertension Start: 02-07-2025 End: 02-07-2025 ambulatory [facility] Facility:[facility] Start: 02-07-2025 End: 02-07-2025 ambulatory Raissa Cerrato Facility:[facility] Start: 01-29-2025 End: 01-29-2025 Patient encounter procedure Chema Oreilly MD Work Phone: Cardiology Comment on above: Postsurgical percuta neous transluminal coronary angioplasty (PTCA) status (Primary Dx); Essential hypertension; Mixed hyperlipidemia; Dizziness and giddiness Start: 01-29-2025 End: 01-29-2025 ambulatory MIGUELANGEL COURTNEY Facility:[facility] Start: 01-24-2025 End: 03-26-2025 Follow-up encounter Miguelangel Courtney MD Work Phone: [facility] [place] Start: 01-17-2025 End: 01-19-2025 Telephone encounter Miguelangel Courtney MD Work Phone: [facility] [place] Comment on above: Results Start: 01-17-2025 End: 01-17-2025 Patient encounter procedure [facility] Work Phone: [facility]ULM [facility] Start: 01-17-2025 End: 01-17-2025 ambulatory [facility] Work Phone: [facility] Comment on above: Spirometry Start: 01-11-2025 End: 01-11-2025 Emergency department patient visit MIGUELANGEL COURTNEY Facility:[id number] Start: 01-10-2025 End: 01-10-2025 Patient encounter procedure Miguelangel Courtney MD Work Phone: [facility] [place] Comment on above: S/P angioplasty with stent (Primary Dx); Hyperlipidemia, unspecified hyperlipidemia type; Essential hypertension, benign; Aortic valve stenosis, etiology of cardiac valve disease unspecified; Prediabetes; SOB (shortness of breath); Screening for colon cancer Start: 01-10-2025 End: 01-10-2025 ambulatory [facility]ELANGEL [facility] Facility:[facility] Start: 01-04-2025 End: 01-04-2025 ambulatory Nurse Intm/Famp Triage [facility] Work Phone: Nurse Phone Triage Comment on above: Elevated BP Start: 12-26-2024 End: 12-26-2024 Telephone encounter Leona Holt Training Program Manager [facility] Cardiac Rehab Comment on above: Appointment (Cardiac Rehab Eval) Start: 12-25-2024 End: 12-26-2024 ambulatory CHEMA RICKS AFIA Facility:[facility] Start: 12-21-2024 End: 12-21-2024 Follow-up encounter Savannah Ogden APRN.TRAIN ANNOUNCER Work Phone: [facility] Comment on above: Results Start: 12-21-2024 End: 12-21-2024 ambulatory [facility] Facility:[facility] Start: 12-19-2024 End: 12-19-2024 Follow-up encounter Willow Marcelo APRN.CNP Work Phone: [facility] [place] Start: 12-18-2024 End: 12-18-2024 Office outpatient visit 15 minutes Willow Marcelo APRN.TRAIN ANNOUNCER Work Phone: [facility] Comment on above: URI, acute (Primary Dx); Rhinorrhea; Screening for depression; Encounter for screening examination for other mental health and behavioral disorders Start: 12-18-2024 End: 12-18-2024 [facility] Facility:[facility] Start: 12-12-2024 End: 12-12-2024 Patient encounter procedure Stephon Negron PA-C Work Phone: Urology Comment on above: Prostate nodule (Lynda katy Dx); Abnormal CT of the abdomen; Screening for genitourinary condition; Benign prostatic hyperplasia with lower urinary tract symptoms, symptom details unspecified Start: 12-12-2024 End: 12-12-2024 [facility] Facility:[facility] Start: 12-08-2024 End: 12-08-2024 [facility] Facility:[facility] Start: 12-07-2024 End: 12-07-2024 Orders Only Josh Salazar PA-C Work Phone: Urology Comment on above: BPH with obstruction /lower urinary tract symptoms (Primary Dx) Start: 11-30-2024 End: 12-08-2024 Telephone encounter Stephon Negron PA-C Work Phone: Urology Comment on above: Patient Question Start: 11-23-2024 End: 11-23-2024 Follow-up encounter Annika Luis APRN.CNP Work Phone: [facility] [place] Comment on above: Results Start: 11-23-2024 End: 11-24-2024 Telephone encounter Miguelangel Courtney MD Work Phone: [facility] [place] Comment on above: Results Start: 11-22-2024 End: 11-22-2024 ambulatory Madison Perry RN Work Phone: [facility] Start: 11-22-2024 End: 11-22-2024 Coordination of care plan Madison Perry RN Work Phone: [facility] Comment on above: Care Coordination Start: 11-16-2024 End: 11-16-2024 Orders Only Savannah Ogden APRN.TRAIN ANNOUNCER Work Phone: [place] [facility] Comment on above: 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) Preparations For Pro cedures (Direct PCI) Start: 11-15-2024 End: 11-15-2024 Telephone encounter Dorcas Bennett General Surgery Comment on above: Patient Update Start: 11-14-2024 End: 11-14-[address] (I-Stat) [facility] Start: 11-14-2024 End: 11-14-2024 Subsequent hospital visit by physician [facility] 1 (I-Stat) [facility]IO [facility] Comment on above: Encounter for prepro cedural cardiovascular examination [Z01.810] Start: 11-14-2024 End: 11-14-2024 ambulatory CHEMA OREILLY Facility:[facility] Start: 11-09-2024 End: 11-09-2024 Telephone encounter Chema Oreilly MD Work Phone: [facility] [place] Comment on above: Cardiac Clearance Start: 10-25-2024 End: 10-25-2024 Follow-up encounter Willam Wiley APRN.TRAIN ANNOUNCER Work Phone: [facility] Comment on above: Results Start: 10-24-2024 End: 10-24-2024 ambulatory MIGUELANGEL COURTNEY Facility:[facility] Start: 10-23-2024 End: 10-25-2024 Patient encounter status Willam Wiley ON AIR PERSONALITY.TRAIN ANNOUNCER Work Phone: [facility] Start: 10-23-2024 End: 11-14-2024 Telephone encounter Willam Wiley APRN.TRAIN ANNOUNCER Work Phone: [place] [facility] Comment on above: Charge Histotechnologist - O ther Nonrheumatic aortic valve stenosis (Primary Dx) Start: 10-23-2024 End: 10-23-[address] Miguelangel Courtney MD Work Phone: [facility] Work Phone: Start: 10-23-2024 End: 10-23-2024 Patient encounter procedure Chema Oreilly MD Work Phone: Cardiology Comment on above: Aortic valve disorde r (Primary Dx); Primary hypertension; SOB (shortness of breath) Start: 10-23-2024 End: 10-23-2024 ambulatory [facility] Facility:[facility] Start: 10-19-2024 End: 10-19-2024 ambulatory [facility]irsten [facility] Comment on above: Bi-Weekly Outreach ( Recurring) for Chronic Disease Management Start: 10-04-2024 End: 10-04-2024 ambulatory Kirsten [facility]ienne [facility] Comment on above: Initial enrollment o josephine for Chronic Disease Management, Started Bi-Weekly Outreach (Recurring) for Chronic Disease Management Start: 09-28-2024 End: 09-28-2024 ambulatory MIGUELANGEL COURTNEY Facility:[facility] Start: 09-28-2024 End: 09-28-2024 Patient encounter procedure Lashaun Blue ON AIR PERSONALITY.TR[employer] ANNOUNCER Work Phone: General Surgery Comment on above: Family history of co rigoberto cancer (Primary Dx); Anemia, unspecified type Start: 09-26-2024 End: 11-26-2024 Follow-up encounter Miguelangel Courtney MD Work Phone: [facility] [place] Start: 09-26-2024 End: 09-26-2024 ambulatory MIGUELANGEL COURTNEY Facility:[facility] Start: 09-25-2024 End: 09-25-2024 ambulatory MIGUELANGEL COURTNEY Facility:[facility] Start: 09-25-2024 End: 09-25-2024 Office outpatient visit 25 minutes Miguelangel Courtney MD Work Phone: [facility] [place] Comment on above: Hyperlipidemia, unsp ecified hyperlipidemia type (Primary Dx); Essential hypertension, benign; Aortic valve stenosis, etiology of cardiac valve disease unspecified; Other proteinuria; Inflammatory polyarthritis (HCC); Varicose veins of both legs with edema; Prediabetes; Obesity, Class II, BMI 35-39.9; Family history of colon cancer; Anemia, unspecified type Start: 09-20-2024 End: 11-20-2024 Follow-up encounter Miguelangel Courtney MD Work Phone: [facility] [place] Start: 09-19-2024 End: 09-19-2024 ambulatory MIGUELANGEL COURTNEY Facility:[facility] Start: 09-12-2024 End: 09-12-2024 ambulatory Roddy Farnsworth MA [facility] Start: 09-12-2024 End: 09-12-2024 Patient encounter [facility] [place] Comment on above: Population Health Na vigation Outreach ([employer] high risk attempt # 1) Start: 09-04-2024 End: 09-04-2024 Refill Miguelangel Courtney MD Work Phone: [facility] [place] Comment on above: Refill Request Start: 08-07-2024 End: 08-07-2024 Refill Miguelangel Courtney MD Work Phone: [address] [place] [address] Comment on above: Refill Request Start: 05-30-2024 End: 05-30-2024 ambulatory MIGUELANGEL COURTNEY Facility:[facility] Start: 05-30-2024 End: 05-30-2024 Patient encounter procedure Stephon Negron PA-C Work Phone: Urology Comment on above: BPH associated with nocturia (Primary Dx); Kidney congenitally absent, right Start: 05-25-2024 End: 05-25-2024 ambulatory MIGUELANGEL COURTNEY Facility:[facility] Start: 03-23-2024 End: 03-23-2024 Refill Miguelangel Courtney MD Work Phone: [facility] Comment on above: Refill Request Start: 03-16-2024 End: 03-16-2024 Refill Miguelangel Courtney MD Work Phone: [facility] Comment on above: Refill Request Start: 02-11-2024 End: 02-11-2024 Patient encounter procedure Miguelangel Courtney MD Work Phone: [facility] Comment on above: Essential hypertensi on, benign (Primary Dx); Hyperlipidemia, unspecified hyperlipidemia type; Aortic valve stenosis, etiology of cardiac valve disease unspecified; Other proteinuria; Inflammatory polyarthritis (HCC); Prediabetes; Obesity, Class II, BMI 35-39.9 Start: 11-19-2023 End: 11-19-2023 Patient encounter procedure Miguelangel Courtney MD Work Phone: [facility] Comment on above: Essential hypertensi on, benign (Primary Dx); Hyperlipidemia, unspecified hyperlipidemia type; Aortic valve stenosis, etiology of cardiac valve disease unspecified; Inflammatory polyarthritis (HCC); Other proteinuria; Prediabetes; Obesity, Class II, BMI 35-39.9 Start: 11-15-2023 Telephone encounter Miguelangel Courtney MD Work Phone: [facility] Comment on above: Lab Orders Start: 11-11-2023 End: 11-11-2023 ambulatory [facility] Work Phone: Start: 11-11-2023 End: 11-11-2023 Patient encounter procedure [facility], [place] Work Phone: Start: 10-26-2023 Refill Miguelangel Courtney MD Work Phone: [facility] Comment on above: Refill Request Start: 10-13-2023 Refill Miguelangel Courtney MD Work Phone: [facility] Comment on above: Refill Request Start: 10-11-2023 End: 10-11-2023 Patient encounter procedure Chema Oreilly MD Work Phone: Cardiology Comment on above: Essential hypertensi on, benign (Primary Dx); Nonrheumatic aortic valve stenosis; Aortic valve disorder Start: 08-25-2023 Refill Miguelangel Courtney MD Work Phone: [facility] Comment on above: Refill Request Start: 05-26-2023 End: 05-26-2023 Subsequent hospital visit by physician [facility] Work Phone: Radiology Comment on above: URI, acute [J06.9] Start: 05-26-2023 End: 05-26-2023 Patient encounter procedure Miguelangel Courtney MD Work Phone: [facility] Comment on above: Hyperlipidemia, unsp ecified hyperlipidemia type (Primary Dx); Essential hypertension, benign; Aortic valve stenosis, etiology of cardiac valve disease unspecified; Other proteinuria; Inflammatory polyarthritis (HCC); Prediabetes; URI, acute; Wheezing Start: 05-25-2023 End: 05-25-2023 Patient encounter procedure Stephon Negron PA-C Work Phone: Urology Comment on above: BPH associated with nocturia (Primary Dx); Kidney congenitally absent, right Start: 05-17-2023 End: 05-17-2023 ambulatory [facility] Work Phone: Start: 05-17-2023 End: 05-17-2023 Patient encounter procedure [facility] Work Phone: Start: 05-11-2023 End: 05-11-2023 Emergency department patient visit [facility] Work Phone: Start: 03-16-2023 End: 03-16-2023 ambulatory [facility] Work Phone: Start: 03-16-2023 End: 03-16-2023 Patient encounter procedure [facility] Work Phone: Start: 11-26-2022 End: 11-26-2022 Patient encounter procedure [facility] Work Phone: Start: 11-11-2022 End: 11-11-2022 Patient encounter procedure Miguelangel Courtney MD Work Phone: [facility] Comment on above: Essential hypertensi on, benign (Primary Dx); Aortic valve stenosis, etiology of cardiac valve disease unspecified; Hyperlipidemia, unspecified hyperlipidemia type; Inflammatory polyarthritis (HCC); Prediabetes; Renal insufficiency Start: 11-10-2022 End: 11-10-2022 ambulatory [facility] Work Phone: Start: 11-10-2022 End: 11-10-2022 Patient encounter procedure [facility] Start: 11-09-2022 Telephone encounter Miguelangel Courtney MD Work Phone: [facility] Comment on above: Lab Orders Start: 10-19-2022 Refill Miguelangel Courtney MD Work Phone: [facility] Comment on above: Refill Request Start: 09-28-2022 End: 09-28-2022 Patient encounter procedure Chema Oreilly MD Work Phone: Cardiology Comment on above: Aortic valve stenosi s, etiology of cardiac valve disease unspecified (Primary Dx); Essential hypertension, benign Start: 07-22-2022 Refill Miguelangel Courtney MD Work Phone: [facility] Comment on above: Refill Request Start: 05-21-2022 End: 05-21-20[facility] Work Phone: Start: 05-21-2022 End: 05-21-2022 Patient encounter procedure [facility] Start: 05-14-2022 End: 05-14-2022 Patient encounter procedure Miguelangel Courtney MD Work Phone: [facility] Comment on above: Prediabetes (Primary Dx); Need for influenza vaccination; Aortic valve stenosis, etiology of cardiac valve disease unspecified; Hyperlipidemia, unspecified hyperlipidemia type; Essential hypertension, benign; Inflammatory polyarthritis (HCC); Spinal stenosis of lumbar region, unspecified whether neurogenic claudication present Start: 05-07-2022 Telephone encounter Miguelangel Courtney MD Work Phone: [facility] Comment on above: Orders Start: 04-07-2022 End: 04-07-2022 Patient encounter procedure Stephon Negron PA-C Work Phone: Urology Comment on above: BPH associated with nocturia (Primary Dx) Start: 03-02-2022 Refill Miguelangel Courtney MD Work Phone: [facility] Comment on above: Refill Request Start: 02-24-2022 End: 02-24-2022 Patient encounter procedure [facility] Start: 11-18-2021 End: 11-18-2021 Patient encounter procedure [facility] Start: 11-07-2021 End: 11-07-2021 Patient encounter procedure Miguelangel Courtney MD Work Phone: [facility] Comment on above: Mixed hyperlipidemia (Primary Dx); Benign prostatic hyperplasia without lower urinary tract symptoms; Aortic valve disorder; Inflammatory polyarthritis (HCC); Prediabetes; Aortic valve stenosis, etiology of cardiac valve disease unspecified; Essential hypertension, benign; Kidney congenitally absent, right Start: 10-30-2020 End: 10-30-2020 Subsequent hospital visit by physician [facility] [place] Work Phone: Radiology Comment on above: Wheezing [R06.2] Start: 05-04-[address] [facility] Facility :[facility] Start: 05-05-2017 End: 05-05-2017 [facility] Facility:[facility] Procedures Date Procedure Procedure Detail Performing Clinician Start: 02-07-2025 Serum inorganic phos phate measurement Dr. Miguelangel Courtney MD Work Phone: Start: 02-07-2025 Follow-up visit Follow Up UZMA HANLEY Start: 01-17-2025 Brncdilat rspse spmt ry pre&post-brncdilat admn Miguelangel Courtney MD Work Phone: Start: 12-18-2024 Adult depression scr eening assessment Willow Marcelo [employer] Work Phone: Start: 12-12-2024 Urnls dip stick/tabl et rgnt auto w/o microscopy Stephon Negron PA-C Work Phone: Start: 10-23-2024 Ecg routine ecg w/le ast 12 lds i&r only [facility] Provider Start: 05-30-2024 Urnls dip stick/tabl et rgnt auto w/o microscopy Stephon Negron PA-C Work Phone: Start: 11-19-2023 Adult depression scr eening assessment Miguelangel Courtney MD Work Phone: Start: 10-11-2023 Ecg routine ecg w/le ast 12 lds i&r only [facility] Provider Start: 05-26-2023 Radiologic exam ches t 2 views Miguelangel Courtney MD Work Phone: Start: 05-25-2023 Urnls dip stick/tabl et rgnt auto w/o microscopy Stephon Negron PA-C Work Phone: Start: 05-11-2023 CT of abdomen and pe lvis without contrast Start: 05-14-2022 INFLUENZA SEASONAL QUADRIVALENT HIGH DOSE AGE 65+ Miguelangel Courtney MD Work Phone: Start: 04-07-2022 Urnls dip stick/tabl et rgnt auto w/o microscopy Stephon Negron PA-C Work Phone: Start: 11-07-2021 Adult depression scr eening assessment Miguelangel Courtney MD Work Phone: Start: 10-30-2020 Radiologic exam ches t 2 views Miguelangel Courtney MD Work Phone: Start: 10-05-2018 Colonoscopy Chema irizarry MD Work Phone: Plan of Treatment Date Care Activity Detail Author Start: 10-05-2028 Screening for malignant neoplasm of colon [facility] Start: 01-18-2028 Screening for malignant neoplasm of colon Cologuard (FIT-DNA) [facility] Start: 12-27-2027 Diabetes Screening Diabetes Screening [facility] Start: 12-22-2027 Diabetes Screening Diabetes Screening [facility] Start: 10-25-2027 Diabetes Screening Diabetes Screening [facility] Start: 09-20-2027 Diabetes Screening Diabetes Screening [facility] Start: 02-03-2027 Diabetes Screening Diabetes Screening [facility] Start: 11-15-2026 Diabetes Screening Diabetes Screening [facility] Start: 05-26-2026 Diabetes Screening Diabetes Screening [facility] Start: 03-13-2026 Annual PCP Team Chronic Disease Visit Annual PCP Team Chronic Disease Visit [facility] Start: 02-07-2026 Annual PCP Team Chronic Disease Visit Annual PCP Team Chronic Disease Visit [facility] Start: 01-10-2026 Annual PCP Team Chronic Disease Visit Annual PCP Team Chronic Disease Visit [facility] Start: 12-18-2025 Annual PCP Team Chronic Disease Visit Annual PCP Team Chronic Disease Visit [facility] Start: 12-18-2025 Anxiety Screening Anxiety Screening [facility] Start: 12-18-2025 BP Controlled (<130/80) BP Controlled (<130/80) [facility] Start: 12-18-2025 Depression Screening Depression Screening [facility] Start: 12-18-2025 End: 12-18-2025 Patient encounter procedure 12/18/2025 9:00 AM EDT Office Visit Urology [address] [place] [address] Stephon Negron PA-C [address] [place] [address] 1 YR F/U Urology Comment on above: 1 YR F/U Start: 12-12-2025 BP Controlled (<130/80) BP Controlled (<130/80) [facility] Start: 12-12-2025 End: 03-13-2026 Prostate specific Ag [Mass/volume] in Serum or Plasma PROSTATE-SPECIFIC ANTIGEN DIAGNOSTIC Lab Routine Prostate nodule Expected: 12/12/2025 (Approximate), Expires: 03/13/2026 [facility] Comment on above: Expected: 12/12/2025 (Approximate), Expi res: 03/13/2026 Start: 12-12-2025 End: 12-12-2025 ambulatory 12/12/2025 9:00 AM EDT Results Only [facility] [address] [place] [id number] [facility] Start: 12-02-2025 Diabetes Screening Diabetes Screening [facility] Start: 11-10-2025 DIABETES SCREEN DIABETES SCREEN [facility] Start: 10-23-2025 BP Controlled (<130/80) BP Controlled (<130/80) [facility] Start: 09-28-2025 BP Controlled (<130/80) BP Controlled (<130/80) [facility] Start: 09-25-2025 Annual PCP Team Chronic Disease Visit Annual PCP Team Chronic Disease Visit [facility] Start: 09-25-2025 Covid-19 Vaccine () Covid-19 Vaccine () [facility] Comment on above: Postponed from 03/12/2024 (Declined at t his time) Start: 09-25-2025 Urine microalbumin profile DTaP,Tdap,Td Vaccine (1 - Tdap) [facility] Comment on above: Postponed from 2011 (Declined at t his time) Start: 09-19-2025 Hepatitis B surface antibody level LDL Cholesterol [facility] Start: 08-27-2025 End: 08-27-2025 Patient encounter procedure Cardiology Comment on above: 6 month follow up Start: 06-05-2025 End: 06-05-2025 Patient encounter procedure 06/05/2025 9:00 AM EST Office Visit Urology [address] [place] [address] Stephon Negron PA-C [address] [place] [address] 1 Yr f/u Urology Comment on above: 1 Yr f/u Start: 05-30-2025 End: 08-29-2025 Prostate specific Ag [Mass/volume] in Serum or Plasma PROSTATE-SPECIFIC ANTIGEN DIAGNOSTIC Lab Routine BPH associated with nocturia Expected: 05/30/2025 (Approximate), Expires: 08/29/2025 [facility] Comment on above: Expected: 05/30/2025 (Approximate), Expi res: 08/29/2025 Start: 05-11-2025 DIABETES SCREEN DIABETES SCREEN [facility] Start: 04-17-2025 End: 04-17-2025 Patient encounter procedure 04/17/2025 11:30 AM EDT Office Visit Pulmonary Medicine [address] [place] [address] Raissa Elkins [employer] [address] [place] [address] 2 MO OV Pulmonary Medicine Comment on above: 2 MO OV Start: 04-09-2025 End: 04-09-2025 Patient encounter procedure 04/09/2025 5:40 PM EDT Office Visit Family Medicine [place] [address] [place] [address] Miguelangel Courtney MD [address] [place] [address] 6 mo/physical [facility] [place] Comment on above: 6 mo/physical Start: 03-13-2025 End: 03-13-2025 Patient encounter procedure 03/13/2025 8:00 AM EDT Office Visit Family Medicine [place] [address] [place] [address] Uzma Hanley APRN.[employer] ANN[employer]NCER [address] [place] [address] 1 month follow up BP check. [facility] [place] Comment on above: 1 month follow up BP check. Start: 03-12-2025 Influenza vaccination [facility] Start: 02-15-2025 End: 02-15-2025 Patient encounter procedure 02/15/2025 11:00 AM EDT Office Visit Pulmonary Medicine [address] [place] [address] Deidre Soto MD [address] [place] [address] SOB (shortness of breath) [R06.02] Pulmonary Medicine Comment on above: SOB (shortness of breath) [R06.02] Start: 02-15-2025 End: 02-15-2025 ambulatory 02/15/2025 10:30 AM EDT Procedure PULM LAB [facility] [address] [place] [address] Wstr, Pulm [facility] [address] [place] [address] SOB (shortness of breath) [R06.02] PULM LAB [facility] Comment on above: SOB (shortness of breath) [R06.02] Start: 02-10-2025 Annual PCP Team Chronic Disease Visit Annual PCP Team Chronic Disease Visit [facility] Start: 02-10-2025 BP Controlled (<130/80) BP Controlled (<130/80) [facility] Start: 02-10-2025 Covid-19 Vaccine () Covid-19 Vaccine () [facility] Comment on above: Postponed from 11/13/2023 (Declined at t his time) Start: 02-07-2025 End: 02-07-2025 Patient encounter procedure 02/07/2025 8:00 AM EDT Office Visit Family Medicine [place] [address] [place] [address] Uzma Hanley APRN.[employer] ANN[employer]NCER [address] [place] [address] 4 wk follow up [facility] [place] Comment on above: 4 wk follow up Start: 01-29-2025 End: 01-29-2025 Patient encounter procedure 01/29/2025 11:40 AM EDT Office Visit Cardiology [address] [place] [address] Chema Oreilly MD [address] [facility], [address] [place] [address] 3 month follow up after testing at [facility] Cardiology Comment on above: 3 month follow up after testing at [facility] Start: 01-17-2025 End: 01-17-2025 ambulatory PULM LAB [facility] Comment on above: SOB (shortness of breath) [R06.02] Start: 01-10-2025 End: 01-10-2025 Patient encounter procedure 01/10/2025 8:40 AM EDT Office Visit Family Medicine [place] [address] [place], [place] [id number] Miguelangel Courtney MD [address] [place] [address] heart stent on 12/29/2024, would like to discuss new medication brilinta, and BP. See triage 01/04/25 [facility] Medicine [place] Comment on above: heart stent on 12/29/2024, would like to discuss new medication brilinta, and BP. See triage 01/04/25 Start: 01-08-2025 Influenza vaccination Influenza Vaccine (#1) [facility] Comment on above: Postponed from 03/12/2024 (Postponed To Appropriate Date) Start: 12-25-2024 End: 12-25-2024 Admission to same day surgery center [employer] Comment on above: INSERT INTRACORONARY STENT-PER MAJOR VES VALDEMAR OR BRANCH Start: 12-25-2024 End: 12-25-2024 Prq trluml coronary stent w/angio one art/brnch [place] [employer] Start: 12-25-2024 Subsequent hospital visit by physician [employer] Comment on above: Stable angina [I20.89] Start: 12-12-2024 End: 12-12-2024 Patient encounter procedure Urology Comment on above: nodule near his prostate. Radiology reza mmends we check psa and follow up FU: Abnormal CTA (LM for pt to have PSA done this week lh). SULY 05/30/24 BPH associated with nocturia. [facility] Start: 12-07-2024 End: 03-08-2025 Prostate Specific Ag Free [Mass/volume] in Serum or Plasma PROSTATE SPECIFIC ANTIGEN, FREE AND TOTAL Lab Routine BPH with obstruction/lower urinary tract symptoms Expected: 12/07/2024, Expires: 03/08/2025 [facility] Work Phone: Comment on above: Expected: 12/07/2024, Expires: Start: 11-23-2024 End: 11-23-2024 Patient encounter procedure [facility] SURGERY Comment on above: Per anesthesia; pt needs to have ECHO pr ior to; pt will call us back to reschedule Start: 11-18-2024 Annual PCP Team Chronic Disease Visit Annual PCP Team Chronic Disease Visit [facility] Start: 11-18-2024 Anxiety Screening Anxiety Screening [facility] Start: 11-18-2024 Depression Screening Depression Screening [facility] Start: 11-18-2024 Shingrix Vaccine (2 of 2) Shingrix Vaccine (2 of 2) [facility] Comment on above: Postponed from 09/09/2023 (Declined at t his time) Start: 11-17-2024 End: 11-17-2024 Patient encounter procedure 11/17/2024 1:50 PM EDT Office Visit Cardiology [address] [place], [place] [id number] Aortic valve disorder Cardiology Comment on above: Aortic valve disorder Start: 11-16-2024 End: 02-15-2025 Basic metabolic 2000 panel - Serum or Plasma BASIC METABOLIC PANEL Lab Routine Coronary artery disease of [place] artery of [place] heart with stable angina pectoris Expected: 11/16/2024, Expires: 02/15/2025 [facility] Comment on above: Expected: 11/16/2024, Expires: Start: 11-16-2024 End: 02-15-2025 CBC panel - Blood by Automated count COMPLETE BLOOD COUNT Lab Routine Coronary artery disease of [place] artery of [place] heart with stable angina pectoris Expected: 11/16/2024, Expires: 02/15/2025 [facility] Work Phone: Comment on above: Expected: 11/16/2024, Expires: 5 Start: 11-14-2024 End: 11-14-2025 Echocardiography ECHO Cardiology Routine Nonrheumatic aortic valve stenosis Expected: 11/14/2024, Expires: 11/14/2025 [facility] Work Phone: Comment on above: Expected: 11/14/2024, Expires: 6 Start: 11-14-2024 End: 11-14-2024 Admission to same day surgery center 11/14/2024 10:30 AM EDT - 11/14/2024 12:00 PM EDT Surgery [place] [employer] [address] [facility] [facility] [place] [address] Chema Oreilly MD [address], [address] [place] [address] (Fax) LEFT HEART CATH INTRAPROCEDURAL INJECT W/ LEFT VENTRICULOGRAPHY IMAGE SUPERVISION/INTERPRETATIO N [employer] Comment on above: LEFT HEART CATH INTRAPROCEDURAL INJECT W / LEFT VENTRICULOGRAPHY IMAGE SUPERVISION/INTERPRETATION Start: 11-14-2024 Subsequent hospital visit by physician 11/14/2024 10:30 AM EDT Hospital Encounter [employer] [address] [place] [address] Chema Oreilly MD [address], [address] [place] [address] (Fax) Valvular heart disease [I38] [employer] Comment on above: Valvular heart disease [I38] Start: 11-14-2024 End: 11-14-2024 L hrt cath w/njx l ventriculography img s&i [employer] Start: 11-14-2024 End: 11-14-2024 Patient encounter procedure 11/14/2024 8:00 AM EDT Appointment RADIO [facility]AN [facility] [address] [place] [address] Aortic valve replacement (TAVR), pre-op eval RADIO CT [facility] Comment on above: Aortic valve replacement (TAVR), pre-op eval Start: 10-31-2024 DIABETES SCREEN DIABETES SCREEN [facility] Start: 10-30-2024 End: 11-22-2025 CTA Chest vessels W contrast IV CTA CHEST (GATED) W IVCON Radiology Routine Expected: 10/30/2024, Expires: 11/22/2025 [facility] Comment on above: Expected: 10/30/2024, Expires: Start: 10-30-2024 End: 10-23-2025 Echocardiography ECHO Cardiology Routine Aortic valve disorder Expected: 10/30/2024, Expires: 10/23/2025 [facility] Work Phone: Comment on above: Expected: 10/30/2024, Expires: Start: 10-23-2024 End: 10-23-2024 Patient encounter procedure Cardiology Comment on above: 1 year follow up Start: 09-28-2024 End: 09-28-2024 Patient encounter procedure 09/28/2024 11:00 AM EDT Office Visit General Surgery [address] [place] [address] Lashaun Blue APRN.[employer] [address] [place] [address] Family history of colon cancer [Z80.0] General Surgery Comment on above: Family history of colon cancer [Z80.0] Start: 09-25-2024 End: 09-25-2024 Patient encounter procedure 09/25/2024 5:20 PM EDT Office Visit Family Medicine [place] [address] [facility] [place], [place] [address] Miguelangel Courtney MD [address] [facility] [place], [place] [id number] 6 month follow up Family Medicine [place] Comment on above: 6 month follow up Start: 09-25-2024 End: 09-25-2025 CBC W Auto Differential panel - Blood COMPLETE BLOOD COUNT AND DIFFERENTIAL Lab Routine Anemia, unspecified type Expected: 09/25/2024, Expires: 09/25/2025 [facility] Work Phone: Comment on above: Expected: 09/25/2024, Expires: Start: 09-25-2024 End: 09-25-2025 Cobalamin (Vitamin B12) [Mass/volume] in Serum or Plasma VITAMIN B12 Lab Routine Anemia, unspecified type Expected: 09/25/2024, Expires: 09/25/2025 [facility] Comment on above: Expected: 09/25/2024, Expires: Start: 09-25-2024 End: 09-25-2025 Ferritin [Mass/volume] in Serum or Plasma FERRITIN Lab Routine Anemia, unspecified type Expected: 09/25/2024, Expires: 09/25/2025 [facility] Comment on above: Expected: 09/25/2024, Expires: Start: 09-25-2024 End: 09-25-2025 Folate [Mass/volume] in Serum or Plasma FOLATE, SERUM Lab Routine Anemia, unspecified type Expected: 09/25/2024, Expires: 09/25/2025 [facility] Comment on above: Expected: 09/25/2024, Expires: Start: 09-25-2024 End: 09-25-2025 Iron and Iron binding capacity panel - Serum or Plasma IRON AND TIBC Lab Routine Anemia, unspecified type Expected: 09/25/2024, Expires: 09/25/2025 [facility] Comment on above: Expected: 09/25/2024, Expires: Start: 08-22-2024 End: 08-22-2024 Patient encounter procedure 08/22/2024 3:40 PM EST Office Visit Family Medicine [place] [address] [place] [address] Miguelangel Courtney MD [address] [place], [place] [id number] 6 month follow up [facility] [place] Comment on above: 6 month follow up Start: 2024 End: 11-12-2024 CBC W Auto Differential panel - Blood COMPLETE BLOOD COUNT AND DIFFERENTIAL Lab Routine Essential hypertension, benign Expected: 2024, Expires: 11/12/2024 [facility] Work Phone: Comment on above: Expected: 2024, Expires: Start: 2024 End: 11-12-2024 Comprehensive metabolic 2000 panel - Serum or Plasma COMPREHENSIVE METABOLIC PANEL Lab Routine Essential hypertension, benign Expected: 2024, Expires: 11/12/2024 [facility] Comment on above: Expected: 2024, Expires: Start: 2024 End: 11-12-2024 Hemoglobin A1c in Blood HEMOGLOBIN A1C Lab Routine Prediabetes Expected: 2024, Expires: 11/12/2024 [facility] Comment on above: Expected: 2024, Expires: Start: 2024 End: 11-12-2024 Lipid 1996 panel - Serum or Plasma LIPID PANEL BASIC Lab Routine Essential hypertension, benign Expected: 2024, Expires: 11/12/2024 [facility] Comment on above: Expected: 2024, Expires: Start: 07-12-2024 Advance Directive Discussion Advance Directive Discussion [facility] Start: 07-12-2024 Medicare Advantage Annual Wellness Visit Medicare Advantage Annual Wellness Visit [facility] Start: 05-30-2024 End: 05-30-2024 Patient encounter procedure 05/30/2024 9:15 AM EST Office Visit Urology [address] [place] [address] Stephon Negron PA-C [address] [place] [address] 1 YR F/U BPH / PSA 1 WK PRIOR/ LVM OF TIME CHANGE Urology Comment on above: 1 YR F/U BPH / PSA 1 WK PRIOR/ LVM OF TI ME CHANGE Start: 05-26-2024 Annual PCP Team Chronic Disease Visit Annual PCP Team Chronic Disease Visit [facility] Start: 05-26-2024 BP Controlled (<130/80) BP Controlled (<130/80) [facility] Start: 05-26-2024 RSV Vaccine (1 - 1-dose 60+ series) RSV Vaccine (1 - 1-dose 60+ series) [facility] Comment on above: Postponed from 2005 (Declined at t his time) Start: 05-26-2024 Shingrix Vaccine (1 of 2) Shingrix Vaccine (1 of 2) [facility] Comment on above: Postponed from 1995 (Declined at t his time) Start: 05-26-2024 Urine microalbumin profile DTaP,Tdap,Td Vaccine (1 - Tdap) [facility] Comment on above: Postponed from 2011 (Declined at t his time) Start: 05-25-2024 End: 08-24-2024 Prostate specific Ag [Mass/volume] in Serum or Plasma PSA/PROSTSPECAG DIAG Lab Routine BPH associated with nocturia Expected: 05/25/2024 (Approximate), Expires: 08/24/2024 [facility] Work Phone: Comment on above: Expected: 05/25/2024 (Approximate), Expi res: 08/24/2024 Start: 05-25-2024 End: 05-25-2024 ambulatory 05/25/2024 8:00 AM EST Results Only [facility] [address] [place] [address] [facility] Start: 03-12-2024 Covid-19 Vaccine ( season) Covid-19 Vaccine () [facility] Start: 03-12-2024 Covid-19 Vaccine () Covid-19 Vaccine () [facility] Start: 03-12-2024 Influenza vaccination Influenza Vaccine (#1) [facility] Start: 02-19-2024 End: 05-20-2024 Hemoglobin A1c in Blood HEMOGLOBIN A1C Lab Routine Prediabetes Expected: 02/19/2024, Expires: 05/20/2024 [facility] Work Phone: Comment on above: Expected: 02/19/2024, Expires: Start: 02-11-2024 End: 02-11-2024 Patient encounter procedure 02/11/2024 10:40 AM EDT Office Visit Family Rin Mueller [address] [place] [id number] Miguelangel Courtney MD [address] [facility] [address] 3 month follow up Family Rin Mueller Comment on above: 3 month follow up Start: 11-19-2023 End: 11-19-2023 Patient encounter procedure 11/19/2023 10:00 AM EDT Office Visit Family Rin Mueller [address] [place] [id number] Miguelangel Courtney MD [address] [facility] [address] 6 mth f/u Family Medicine [facility] Comment on above: 6 mth f/u Start: 11-15-2023 End: 02-14-2024 Basic metabolic 2000 panel - Serum or Plasma BASIC METABOLIC PANEL Lab Routine Essential hypertension, benign Expected: 11/15/2023, Expires: 02/14/2024 [facility] Comment on above: Expected: 11/15/2023, Expires: 4 Start: 11-15-2023 End: 11-14-2024 CBC W Auto Differential panel - Blood COMPLETE BLOOD COUNT AND DIFFERENTIAL Lab Routine Anemia, unspecified type Expected: 11/15/2023, Expires: 11/14/2024 [facility] Comment on above: Expected: 11/15/2023, Expires: Start: 11-15-2023 End: 11-14-2024 Cobalamin (Vitamin B12) [Mass/volume] in Serum or Plasma VITAMIN B12 Lab Routine Anemia, unspecified type Expected: 11/15/2023, Expires: 11/14/2024 [facility] Comment on above: Expected: 11/15/2023, Expires: Start: 11-15-2023 End: 11-14-2024 Ferritin [Mass/volume] in Serum or Plasma FERRITIN Lab Routine Anemia, unspecified type Expected: 11/15/2023, Expires: 11/14/2024 [facility] Comment on above: Expected: 11/15/2023, Expires: Start: 11-15-2023 End: 11-14-2024 Folate [Mass/volume] in Serum or Plasma FOLATE, SERUM Lab Routine Anemia, unspecified type Expected: 11/15/2023, Expires: 11/14/2024 [facility] Comment on above: Expected: 11/15/2023, Expires: Start: 11-15-2023 End: 02-14-2024 Hemoglobin A1c in Blood HEMOGLOBIN A1C Lab Routine Prediabetes Expected: 11/15/2023, Expires: 02/14/2024 [facility] Work Phone: Comment on above: Expected: 11/15/2023, Expires: 4 Start: 11-15-2023 End: 11-14-2024 Iron and Iron binding capacity panel - Serum or Plasma IRON AND TIBC Lab Routine Anemia, unspecified type Expected: 11/15/2023, Expires: 11/14/2024 [facility] Comment on above: Expected: 11/15/2023, Expires: 5 Start: 11-15-2023 End: 02-14-2024 Lipid 1996 panel - Serum or Plasma LIPID PANEL BASIC Lab Routine Essential hypertension, benign Expected: 11/15/2023, Expires: 02/14/2024 [facility] Comment on above: Expected: 11/15/2023, Expires: 4 Start: 11-13-2023 Covid-19 Vaccine () Covid-19 Vaccine () [facility] Start: 11-12-2023 ANNUAL PCP TEAM CHRONIC DISEASE VISIT ANNUAL PCP TEAM CHRONIC DISEASE VISIT [facility] Start: 10-18-2023 End: 10-10-2024 Echocardiography ECHO Cardiology Routine Nonrheumatic aortic valve stenosis Expected: 10/18/2023, Expires: 10/10/2024 [facility] Work Phone: Comment on above: Expected: 10/18/2023, Expires: 5 Start: 09-29-2023 BP CONTROLLED (<130/80) BP CONTROLLED (<130/80) [facility] Start: 09-09-2023 Shingrix Vaccine (2 of 2) Shingrix Vaccine (2 of 2) [facility] Start: 07-12-2023 Advance Directive Discussion Advance Directive Discussion [facility] Start: 07-12-2023 Behavioral Health Screening Behavioral Health Screening [facility] Start: 07-12-2023 Depression Assessment Depression Assessment [facility] Start: 05-26-2023 End: 08-25-2023 Basic metabolic 2000 panel - Serum or Plasma [facility] Work Phone: Comment on above: Expected: 05/26/2023, Expires: 4 Start: 05-26-2023 End: 02-14-2024 Hemoglobin A1c in Blood [facility] Work Phone: Comment on above: Expected: 05/26/2023, Expires: 4 Start: 05-14-2023 ANNUAL PCP TEAM CHRONIC DISEASE VISIT ANNUAL PCP TEAM CHRONIC DISEASE VISIT [facility] Start: 05-14-2023 BP CONTROLLED (<130/80) BP CONTROLLED (<130/80) [facility] Start: 05-11-2023 [facility] Start: 04-07-2023 BP CONTROLLED (<130/80) BP CONTROLLED (<130/80) [facility] Start: 04-07-2023 End: 06-07-2023 Prostate specific Ag [Mass/volume] in Serum or Plasma PSA/PROSTSPECAG DIAG Lab Routine BPH associated with nocturia Expected: 04/07/2023 (Approximate), Expires: 06/07/2023 [facility] Work Phone: Comment on above: Expected: 04/07/2023 (Approximate), Expi res: 06/07/2023 Start: 03-12-2023 Covid-19 Vaccine ( season) Covid-19 Vaccine () [facility] Start: 03-12-2023 Influenza vaccination Influenza Vaccine (#1) [facility] Start: 11-11-2022 End: 01-11-2023 Basic metabolic 2000 panel - Serum or Plasma BASIC METABOLIC PNL Lab Routine Renal insufficiency Expected: 11/11/2022, Expires: 01/11/2023 [facility] Work Phone: Comment on above: Expected: 11/11/2022, Expires: 3 Start: 11-11-2022 End: 01-11-2023 Hemoglobin A1c in Blood HGB A1C Lab Routine Prediabetes Expected: 11/11/2022, Expires: 01/11/2023 [facility] Work Phone: Comment on above: Expected: 11/11/2022, Expires: 3 Start: 11-11-2022 End: 01-11-2023 Magnesium [Mass/volume] in Serum or Plasma MAGNESIUM BLD Lab Routine Renal insufficiency Expected: 11/11/2022, Expires: 01/11/2023 [facility] Work Phone: Comment on above: Expected: 11/11/2022, Expires: 3 Start: 11-11-2022 End: 01-11-2023 Urinalysis complete panel - Urine URINALYSIS, WITH MICROSCOPIC Lab Routine Renal insufficiency Expected: 11/11/2022, Expires: 01/11/2023 [facility] Work Phone: Comment on above: Expected: 11/11/2022, Expires: 3 Start: 11-09-2022 End: 01-09-2023 CBC W Auto Differential panel - Blood CBC + DIFF Lab Routine Essential hypertension, benign Hyperlipidemia, unspecified hyperlipidemia type Expected: 11/09/2022, Expires: 01/09/2023 [facility] Work Phone: Comment on above: Expected: 11/09/2022, Expires: 3 Start: 11-09-2022 End: 01-09-2023 Comprehensive metabolic 2000 panel - Serum or Plasma COMP METABOLIC PANEL Lab Routine Essential hypertension, benign Hyperlipidemia, unspecified hyperlipidemia type Expected: 11/09/2022, Expires: 01/09/2023 [facility] Work Phone: Comment on above: Expected: 11/09/2022, Expires: 3 Start: 11-09-2022 End: 01-09-2023 Hemoglobin A1c in Blood HGB A1C Lab Routine Essential hypertension, benign Hyperlipidemia, unspecified hyperlipidemia type Expected: 11/09/2022, Expires: 01/09/2023 [facility] Work Phone: Comment on above: Expected: 11/09/2022, Expires: 3 Start: 11-09-2022 End: 01-09-2023 Lipid 1996 panel - Serum or Plasma LIPID PANEL BASIC Lab Routine Essential hypertension, benign Hyperlipidemia, unspecified hyperlipidemia type Expected: 11/09/2022, Expires: 01/09/2023 [facility] Work Phone: Comment on above: Expected: 11/09/2022, Expires: 3 Start: 11-07-2022 Adult depression screening assessment DEPRESSION SCREENING [facility] Start: 11-07-2022 ANNUAL PCP TEAM CHRONIC DISEASE VISIT ANNUAL PCP TEAM CHRONIC DISEASE VISIT [facility] Start: 07-12-2022 ADVANCE DIRECTIVE DISCUSSION ADVANCE DIRECTIVE DISCUSSION [facility] Start: 07-12-2022 DEPRESSION ASSESSMENT DEPRESSION ASSESSMENT [facility] Start: 05-08-2022 End: 07-08-2022 CBC W Auto Differential panel - Blood CBC + DIFF Lab Routine Inflammatory polyarthritis (HCC) Expected: 05/08/2022, Expires: 07/08/2022 [facility] Work Phone: Comment on above: Expected: 05/08/2022, Expires: 2 Start: 05-08-2022 End: 07-08-2022 Comprehensive metabolic 2000 panel - Serum or Plasma COMP METABOLIC PANEL Lab Routine Essential hypertension Prediabetes Mixed hyperlipidemia Expected: 05/08/2022, Expires: 07/08/2022 [facility] Work Phone: Comment on above: Expected: 05/08/2022, Expires: 2 Start: 05-08-2022 End: 07-08-2022 Hemoglobin A1c in Blood HGB A1C Lab Routine Prediabetes Expected: 05/08/2022, Expires: 07/08/2022 [facility] Work Phone: Comment on above: Expected: 05/08/2022, Expires: 2 Start: 05-08-2022 End: 07-08-2022 Lipid 1996 panel - Serum or Plasma LIPID PANEL BASIC Lab Routine Mixed hyperlipidemia Expected: 05/08/2022, Expires: 07/08/2022 [facility] Work Phone: Comment on above: Expected: 05/08/2022, Expires: 2 Start: 03-12-2022 Influenza vaccination INFLUENZA (#1) [facility] Start: 12-19-2021 End: 02-18-2022 HEPATIC FUNCTION PNL HEPATIC FUNCTION PNL Lab Routine Mixed hyperlipidemia Expected: 12/19/2021, Expires: 02/18/2022 [facility] Work Phone: Comment on above: Expected: 12/19/2021, Expires: 2 Start: 12-19-2021 End: 02-18-2022 LIPID PANEL BASIC LIPID PANEL BASIC Lab Routine Mixed hyperlipidemia Expected: 12/19/2021, Expires: 02/18/2022 [facility] Work Phone: Comment on above: Expected: 12/19/2021, Expires: 2 Start: 08-21-2021 COVID-19 VACCINE (4 - Booster for Moderna series) COVID-19 VACCINE (4 - Booster for Moderna series) [facility] Start: 2021 COVID-19 VACCINE (4 - Booster for Moderna series) COVID-19 VACCINE (4 - Booster for Moderna series) [facility] Start: 07-16-2021 COVID-19 VACCINE (4 - Booster for Moderna series) COVID-19 VACCINE (4 - Booster for Moderna series) [facility] Start: 07-12-2021 ADVANCE DIRECTIVE DISCUSSION ADVANCE DIRECTIVE DISCUSSION [facility] Start: 07-12-2021 DEPRESSION ASSESSMENT DEPRESSION ASSESSMENT [facility] Start: 2011 Urine microalbumin profile [facility] Start: 2005 RSV Vaccine (1 - 1-dose 60+ series) RSV Vaccine (1 - 1-dose 60+ series) [facility] Start: 1995 SHINGRIX VACCINE (1 of 2) SHINGRIX VACCINE (1 of 2) [facility] Start: 1964 SHINGRIX VACCINE (1 of 2) SHINGRIX VACCINE (1 of 2) [facility] Start: 1963 BP CONTROLLED (<130/80) BP CONTROLLED (<130/80) [facility] Start: 1945 Screening for malignant neoplasm of colon [facility] COLOGUARD COLOGUARD Lab Ro utine Screening for colon cancer Ordered: 01/10/2025 [facility] Comment on above: Ordered: 01/10/2025 COLOGUARD COLOGUARD Lab Ro utine Screen for colon cancer Ordered: 01/24/2025 [facility] Work Phone: Comment on above: Ordered: 01/24/2025 COVID & INFLUENZA A/ B & RSV NAAT, ROUTINE COVID & INFLUENZA A/B & RSV NAAT, ROUTINE Microbiology Routine URI, acute Wheezing 05/26/2023 9:52 AM EST [facility] Work Phone: COVID & INFLUENZA A/ B & RSV PCR, ROUTINE COVID & INFLUENZA A/B & RSV PCR, ROUTINE Microbiology Routine URI, acute 12/18/2024 1:43 PM EDT [facility] Work Phone: End: 11-22-2025 CTA Abdominal vessels and Pelvis vessels W contrast IV CTA ABD/PEL W IVCON Radiology Routine Encounter for preprocedural cardiovascular examination 1 Occurrences starting 10/23/2024 until 11/22/2025 [facility] Work Phone: Comment on above: 1 Occurrences starting 10/23/2024 until 11/22/2025 End: 11-14-2024 CTA Abdominal vessels and Pelvis vessels W contrast IV [facility] Work Phone: Comment on above: 1 Occurrences starting 11/14/2024 until 11/14/2024 End: 11-22-2025 CTA Abdominal, Pelvis and Lower extremity vessels W contrast IV CTA ABD/PEL LOWER EXTREM WO/W IVCON Radiology Routine 1 Occurrences starting 10/23/2024 until 11/22/2025 [facility] Comment on above: 1 Occurrences starting 10/23/2024 until 11/22/2025 End: 11-22-2025 CTA Chest vessels WO and W contrast IV CTA CHEST (GATED) WO/W IVCON Radiology Routine Encounter for preprocedural cardiovascular examination 1 Occurrences starting 10/23/2024 until 11/22/2025 [facility] Comment on above: 1 Occurrences starting 10/23/2024 until 11/22/2025 End: 11-14-2024 CTA Chest vessels WO and W contrast IV [facility] Comment on above: 1 Occurrences starting 11/14/2024 until 11/14/2024 End: 09-24-2023 ECG COMPLETE ECG COMPLETE ECG Routine Aortic valve stenosis, etiology of cardiac valve disease unspecified Essential hypertension, benign 1 Occurrences starting 09/23/2022 until 09/24/2023 [facility] Work Phone: Comment on above: 1 Occurrences starting 09/23/2022 until 09/24/2023 ECG COMPLETE ECG COMPLETE ECG Routine Essential hypertension, benign Ordered: 10/11/2023 [facility] Work Phone: Comment on above: Ordered: 10/11/2023 ECG COMPLETE ECG COMPLETE ECG 10/11/2023 9:56 AM EDT [facility] ECG COMPLETE ECG COMPLETE ECG 10/23/2024 8:20 AM EDT [facility] End: 03-16-2026 HOME SLEEP APNEA TEST (HSAT) HOME SLEEP APNEA TEST (HSAT) Procedures Routine Nocturnal hypoxemia 1 Occurrences starting 03/16/2025 until 03/16/2026 [facility] Work Phone: Comment on above: 1 Occurrences starting 03/16/2025 until 03/16/2026 End: 02-09-2026 LUNG VOLUMES LUNG VOLUMES PFT Routine SOB (shortness of breath) 1 Occurrences starting 01/10/2025 until 02/09/2026 [facility] Comment on above: 1 Occurrences starting 01/10/2025 until 02/09/2026 Oziel post-voiding residual urine&/bladder cap US MSR POST-VOID RESID URINE Procedures Routine BPH associated with nocturia Ordered: 05/30/2024 [facility] Work Phone: Comment on above: Ordered: 05/30/2024 Patient Education ED Abdominal P ain Unkn Cause Male... [facility] Work Phone: Patient referral [facility] Work Phone: POST VOID RESIDUAL POST VOID RES IDUAL Procedures Routine BPH associated with nocturia Ordered: 04/07/2022 [facility] Work Phone: Comment on above: Ordered: 04/07/2022 POST VOID RESIDUAL POST VOID RES IDUAL Procedures Routine BPH associated with nocturia Ordered: 05/25/2023 [facility] Work Phone: Comment on above: Ordered: 05/25/2023 POST VOID RESIDUAL POST VOID RES IDUAL Procedures Routine Abnormal CT of the abdomen Prostate nodule Screening for genitourinary condition Ordered: 12/12/2024 [facility] Work Phone: Comment on above: Ordered: 12/12/2024 End: 09-28-2025 Screening colonoscopy COLONOSCOPY SCREENING Endoscopy Routine Family history of colon cancer Anemia, unspecified type 1 Occurrences starting 09/28/2024 until 09/28/2025 [facility] Work Phone: Comment on above: 1 Occurrences starting 09/28/2024 until 09/28/2025 End: 02-09-2026 SPIROMETRY WITH DILATOR IF OBSTRUCTED SPIROMETRY WITH DILATOR IF OBSTRUCTED PFT Routine SOB (shortness of breath) 1 Occurrences starting 01/10/2025 until 02/09/2026 [facility] Work Phone: Comment on above: 1 Occurrences starting 01/10/2025 until 02/09/2026 XR and RF Chest 2 Vi ews and Views XR CHEST FLUORO SNIFF TEST Radiology Routine Elevated diaphragm 03/13/2025 2:14 PM EDT [facility] Work Phone: [facility] Immunizations Immunization Date Immunization Notes Care Provider Deisy nassar 07-15-2023 COVID-19 vaccine, ag e 12+ yr, 2022- season ([employer]) Miguelangel Courtney MD Work Phone: [facility] 07-15-2023 zoster vaccine recombinant Miguelangel Courtney MD Work Phone: [facility] 06-30-2023 influenza, high dose seasonal, preservative-free Miguelangel Courtney MD Work Phone: [facility] 06-30-2023 respiratory syncytia l virus (RSV) vaccine, bivalent (ABRYSVO) Miguelangel Courtney MD Work Phone: [facility] 06-30-2023 influenza virus vacc ine, unspecified formulation Miguelangel Courtney MD Work Phone: [facility] 05-14-2022 influenza, high-dose , quadrivalent vaccine (FLUZONE HIGH DOSE QUADRIVALENT) Miguelangel Courtney MD Work Phone: [facility] 05-14-2022 influenza virus vacc ine, unspecified formulation Stephon Negron PA-C Work Phone: [facility] 05-21-2021 COVID-19 original vaccine, full dose, monovalent (MODERNA) Miguelangel Courtney MD Work Phone: [facility] 05-07-2021 influenza, high-dose , quadrivalent vaccine (FLUZONE HIGH DOSE QUADRIVALENT) Miguelangel Courtney MD Work Phone: [facility] 10-07-2020 COVID-19 vaccine, fu ll dose (MODERNA) Miguelangel Courtney MD Work Phone: [facility] 09-09-2020 COVID-19 vaccine, fu ll dose (MODERNA) Miguelangel Courtney MD Work Phone: [facility] 05-16-2020 influenza, high-dose , quadrivalent vaccine (FLUZONE HIGH DOSE QUADRIVALENT) Miguelangel Courtney MD Work Phone: [facility] 03-29-2019 influenza, high dose seasonal, preservative-free Miguelangel Courtney MD Work Phone: [facility] 05-20-2018 influenza, high dose seasonal, preservative-free Miguelangel Courtney MD Work Phone: [facility] 05-12-2018 Influenza virus vaccine [facility] 05-10-2017 influenza, high dose seasonal, preservative-free Miguelangel Courtney MD Work Phone: [facility] 04-23-2016 influenza, high dose seasonal, preservative-free Miguelangel Courtney MD Work Phone: [facility] 10-16-2015 pneumococcal conjuga te vaccine, 13 valent Miguelangel Courtney MD Work Phone: [facility] 04-16-2015 influenza, high dose seasonal, preservative-free Miguelangel Courtney MD Work Phone: [facility] 04-22-2012 influenza virus vacc ine, unspecified formulation Miguelangel Courtney MD Work Phone: [facility] 08-12-2011 pneumococcal polysaccharide vaccine, 23 valent Miguelangel Courtney MD Work Phone: [facility] 08-12-2011 tetanus and diphther ia toxoids, adsorbed, preservative free, for adult use (2 Lf of tetanus toxoid and 2 Lf of diphtheria toxoid) Miguelangel Courtney MD Work Phone: [facility] 05-11-2009 influenza virus vacc ine, unspecified formulation Miguelangel Courtney MD Work Phone: [facility] 06-09-2006 influenza virus vacc ine, unspecified formulation Miguelangel Courtney MD Work Phone: [facility] Work Phone: 09-15-2004 pneumococcal polysaccharide vaccine, 23 valent Miguelangel Courtney MD Work Phone: [facility] Work Phone: 07-12-2001 tetanus and diphther ia toxoids, adsorbed, preservative free, for adult use (2 Lf of tetanus toxoid and 2 Lf of diphtheria toxoid) Miguelangel Courtney MD Work Phone: [facility] Payers Date Payer Category Payer Self-pay [id number] 2021 Medicare HUMANA MEDICARE HUMANA MEDICARE PPO [id number] 2021-Present [phone] [address] [address] [place] [address] PPO [id number] 2021 Medicare (Managed Care) [id number] 2021 Medicare [id number] 2019 Medicare [id number] Unknown [id number] Unknown [id number] Unknown [id number] Social History Date Type Detail Facility Start: 01-02-2011 End: 05-14-2022 Tobacco smoking status NHIS Never smoked tobacco [facility] Start: 10-30-2020 End: 11-07-2021 Alcohol intake Current non-drinker of alcohol (finding) [facility] Start: 1945 Sex Assigned At Male [facility] Start: 09-30-2020 End: 05-14-2022 Exposure to SARS-CoV-2 (event) Not sure [facility] Start: 12-07-2018 End: 05-11-2023 Tobacco smoking status ORIS Unknown if ever smoked [facility] Start: 12-06-2018 None [facility] Start: 12-06-2018 Spouse/ Significant Other [facility] Start: 12-07-2018 Non-smoker [facility] Start: 01-02-2011 End: 05-14-2022 Tobacco use and exposure Smokeless tobacco non-user [facility] Work Phone: Start: 11-09-2022 History SDOH Alcohol Frequency 1 [facility] Start: 11-09-2022 History SDOH Alcohol Std Drinks 0 [facility] Start: 11-09-2022 History SDOH Social Connections Phone 4 [facility] Start: 11-09-2022 History SDOH Social Connections Restorationism 3 [facility] Start: 11-09-2022 History SDOH Financial 5 [facility] Start: 11-09-2022 History SDOH Transport Med 2 [facility] Start: 05-25-2023 End: 01-17-2025 Alcohol intake Ex-drinker (finding) [facility] Start: 11-09-2022 End: 11-11-2022 History of Social function [facility] Start: 11-09-2022 End: 11-11-2022 Social connection and isolation panel [facility] Do you belong to any clubs or organizations such as roman catholic groups, unions, fraternal or athletic groups, or school groups? Yes [facility] Are you now , , , , never or living with a partner? [facility] How often to you hav e a drink containing alcohol? Never [facility] Start: 06-12-2012 How many standard drinks containing alcohol do you have on a typical day? Patient does not drink [facility] Do you feel stress - tense, restless, nervous, or anxious, or unable to sleep at night because your mind is troubled all the time - these days [OSQ] Not at all [facility] (I/We) worried maximilian er (my/our) food would run out before (I/we) got money to buy more. Never true [facility] In the past 12 month s, was there a time when you were not able to pay the mortgage or rent on time? No [facility] Start: 06-03-2021 Gender identity Identifies as male gender (finding) [facility] Start: 06-03-2021 Sexual orientation Heterosexual (finding) [facility] Start: 10-26-2024 Sex Male (finding) [facility] Goals Date Patient Goal Desired Activity /State Personal health goal Functional Status Date Assessment Result Facility 01-31-2025 Total score [AUDIT-C] 0 02/01/20 11:07 AM EDT Jason Wyatt [facility] 01-31-2025 How often do you hav e a drink containing alcohol? Never 01/31/2025 11:07 AM EDT Jason Wyatt Never [facility] 01-31-2025 Functional status Patient does n ot drink 01/31/2025 11:07 AM EDT Jason Wyatt Patient does not drink [facility] 01-31-2025 How often do you hav e 6 or more drinks on 1 occasion? Never 01/31/2025 11:07 AM EDT Jason Wyatt Never [facility] 12-26-2024 Are you deaf, or do you have serious difficulty hearing No 12/26/2024 9:50 AM Rashard Porter RN No [facility] 12-26-2024 Are you blind, or do you have serious difficulty seeing, even when wearing glasses No 12/26/2024 9:50 AM Rashard Porter RN No [facility] 12-26-2024 Do you have serious difficulty walking or climbing stairs No 12/26/2024 9:50 AM EDT Rashard Louise, SCOTT No [facility] 12-26-2024 Do you have difficul ty dressing or bathing No 12/26/2024 9:50 AM EDT Rashard Louise, SCOTT No [facility] 12-26-2024 Because of a physica l, mental, or emotional condition, do you have difficulty doing errands alone such as visiting a physician's office or shopping No 12/26/2024 9:50 AM EDT Rashard Louise, SCOTT No [facility] 12-01-2018 Are you deaf, or do you have serious difficulty hearing No 12/01/2018 3:27 PM EDT Madison Call, SCOTT No [facility] 12-01-2018 Are you blind, or do you have serious difficulty seeing, even when wearing glasses No 12/01/2018 3:27 PM EDT Madison Call, SCOTT No [facility] 12-01-2018 Do you have serious difficulty walking or climbing stairs No 12/01/2018 3:27 PM EDT Madison Call, SCOTT No [facility] 12-01-2018 Do you have difficul ty dressing or bathing No 12/01/2018 3:27 PM EDT Madison Call, SCOTT No [facility] 12-01-2018 Because of a physica l, mental, or emotional condition, do you have difficulty doing errands alone such as visiting a physician's office or shopping No 12/01/2018 3:27 PM EDT Madison Call RN No [facility] Mental Status Date Assessment Result Facility 12-26-2024 Because of a physica l, mental, or emotional condition, do you have serious difficulty concentrating, remembering, or making decisions No 12/26/2024 9:50 AM Rashard Porter RN No [facility] 12-01-2018 Because of a physica l, mental, or emotional condition, do you have serious difficulty concentrating, remembering, or making decisions No 12/01/2018 3:27 PM EDT Madison Call RN No [facility] Clinical Notes 01-16-2019 to 05-11-2025 Telephone Encounter - Deidre Soto MD - 03/16/2025 2:45 PM EDTTelephone Encounter - Deidre Soto MD - 03/16/2025 2:45 PM Uzma Dewitt APRN.[facility] - 03/13/2025 5:30 PM EDT Note Date & Type Note Facility 05-11-2025 Note HNO ID: [id number] Author: ZURDO PATEL MD Service: ? Author Type: Physician Type: Progress Notes Filed: 05/11/2025 13:53 Note Text: [facility] PUL[facility]IC[facility] Date: May 11, 2025 Patient Name: Goran Gabriel PRIMARY CARE PHYSICIAN: Miguelangel Courtney MD REASON FOR CONSULT: Patient presents with: Sleep Apnea HPI: The patient is a 79-year-old male with chronic dyspnea presenting for initial evaluation after a recent sleep study. The patient was recently evaluated by Dr. Soto for chronic dyspnea, who ordered a home sleep study. He reports that Dr. Soto described his lungs as follows: one lung was functioning well, while the other was not drawing in enough air, with possible diaphragm involvement. The home sleep study, set up by his , confirmed severe KANCHAN. He was not previously aware of this diagnosis. He denies a history of asthma. He reports good sleep quality, falling asleep quickly without difficulty. However, he wakes 2-3 times nightly to urinate. He uses Flonase nightly before bed and is able to fall asleep easily, but upon waking in the morning, he experiences nasal obstruction described as feeling like a bad cold. This improves after blowing his nose and sitting in a cooler environment, such as his living room recliner. He has seen commercials for the Inspire device but has not pursued this option. He has an upcoming appointment with Dr. Soto's nurse practitioner, Raissa Lara, in July. IMMUNIZATIONS: Immunization History Administered Date(s) Administered COVID-19 original vaccine, full dose, monovalent (MODERNA) 09/09/2020 10/07/2020 05/21/2021 COVID-19 vaccine, age 12+ yr ([employer] [facility]) 07/15/2023 TD Adult 07/12/2001 08/12/2011 influenza (HD-IIV3) vaccine, age 65+ yr, high dose, trivalent, PF (FLUZONE HIGH-DOSE) 04/16/2015 04/23/2016 05/10/2017 05/20/2018 03/29/2019 06/30/2023 04/09/2025 influenza (HD-IIV4) vaccine, age 65+ yr, high dose, quadrivalent, PF (FLUZONE HIGH-DOSE) 05/16/2020 05/07/2021 05/14/2022 influenza vaccine, unspecified formulation 06/09/2006 05/11/2009 04/22/2012 pneumococcal conjugate (PCV13) vaccine, 13 valent (PREVNAR 13) 10/16/2015 pneumococcal polysaccharide (PPV23) vaccine, 23 valent (PNEUMOVAX 23) 09/15/2004 08/12/2011 respiratory syncytial virus (RSV) vaccine, bivalent (ABRYSVO) 06/30/2023 zoster (RZV) vaccine, recombinant (SHINGRIX) 07/15/2023 REVIEW OF SYSTEMS: Constitutional: (-) sleep disturbance Ears/Nose/Mouth/Throat: (+) nasal congestion Genitourinary: (+) nocturia PAST MEDICAL HISTORY Diagnosis Date Aortic stenosis mild Benign prostatic hyperplasia with lower urinary tract symptoms, symptom details unspecified BPH associated with nocturia CAD (coronary artery disease) S/p stent Hyperglycemia Hyperlipidemia Hypertension IMPOTENCE, ORGANIC ORIGN Kidney congenitally absent, right L-S radiculopathy right leg, Stenosis on lumbar MRI Obesity Personal history of colonic polyps PAST SURGICAL HISTORY Procedure Laterality Date APPENDECTOMY COLONOSCOPY 10/05/2018 COLONOSCOPY FLX DX W/COLLJ SPEC WHEN PFRMD 09/05/2013 normal colon - prior polyps 5 year follow up COLSC FLX W/RMVL OF TUMOR POLYP LESION SNARE TQ 01/20/2005 COLSC FLX W/RMVL OF TUMOR POLYP LESION SNARE TQ 06/13/2010 polyps cecum and 45cm, tubular adenomas PAST SURGICAL HISTORY OF 12/25/2024 INSERT INTRACORONARY STENT-PER MAJOR VESSEL OR BRANCH RPR 1ST INGUN HRNA AGE 5 YRS/> REDUCIBLE Hernia repair, inguinal bilateral RX RIB FRACTURE W 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 http://www.calculator.net/ideal-we ight-calculator.html Gen: Alert AND Oriented x 3, No acute distress HEENT: Normocephalic, Atraumatic, Pupils Equally Reactive to light and accomodation, moist mucous membranes, Neck: Supple, no rigidity, Trachea is midline, no Lymphadenopathy Lungs: Clear to Auscultation bilaterally , No wheezing, rhonchi or rales Heart: Regular Rate and Rhythm, Normal S1 and S2, no murmurs, rhonchi or wheezing Abd: Soft, Nontender and nodistended, Positive Bowel Sounds x all four quadrants Ext: No edema, +2 pulses Neuro: CN II - XII grossly intact, no sensory/motor deficits noted Laboratory and Imaging: Last Spirometry SPIROMETRY WITH DILATOR IF OBSTRUCTED Collected: 01/17/2025 9:44 AM (Final result) Narrative: [facility] [address] [place] [address] Test Date: 2025-01-17 Pat Name: GORAN GABRIEL Department: Room: 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 [facility] 04-23-2025 Note HNO ID: [id number] Author: ?, ?, ? Service: ? Author Type: ? Type: Progress Notes Filed: 04/23/2025 09:50 Note Text: Sleep Study Check-In Documentation Date: April 23, 2025 Name: Goran Gabriel Comments: HST was returned in working order with all sleep questionnaires Connor Kamara [facility] 04-18-2025 Note HNO ID: [id number] Author: ?, ?, ? Service: ? Author Type: ? Type: Progress Notes Filed: 04/23/2025 09:50 Note Text: Nomad # [id number] , date shipped out 04-18-25 FED EX ONLY Tracking mailout: [id number] Tracking return: [id number] [facility] 04-17-2025 Note HNO ID: [id number] Author: RAISSA ELKINS APRN.TRAIN ANN[employer]NCER Service: ? Author Type: Nurse Practitioner Type: Progress Notes Filed: 04/17/2025 12:23 Note Text: Pulmonary Medicine Patients name: Goran Gabriel PCP: Miguelangel Courtney MD CC: follow-up HPI: Goran Gabriel is a 79 year old male never smoker with PMH significant for class II obesity, aortic stenosis, HLD, HTN, single kidney (congenital absence), CAD s/p stent (12/2024, on Brilinta). 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 New patient 02/2025 for shortness of breath which had been ongoing for years. Prior PFT showed moderate restriction and small airway obstruction. Recommended Sniff test to evaluate diaphragm. Current inhaled therapy with PRN Albuterol. He presents today for follow-up. Since his last visit, he reports he never picked up Albuterol as he wasn't sure how to use it. He did complete Sniff test which was negative for paralysis. He was ordered a HSAT and is due to complete that test later this week. Overall reports symptoms are unchanged from prior. He does note that the hot/humid temperatures over the summer made it harder for him to breath which has recently improved as the weather changed. Denies wheezing specifically but will sometimes cough first thing in the morning. Will occasionally cough up sputum but does not look at the color. No fevers, chills, or night sweats. Rare lower extremity edema. No recent hospitalizations or ED visits or upper respiratory infections. He is currently working on weight loss, focusing on his diet. PAST MEDICAL HISTORY Diagnosis Date Aortic stenosis mild BPH associated with nocturia CAD (coronary artery disease) S/p stent Hyperglycemia Hyperlipidemia Hypertension IMPOTENCE, ORGANIC ORIGN Kidney congenitally absent, right L-S radiculopathy right leg, Stenosis on lumbar MRI Obesity Personal history of colonic polyps Allergies: Simvastatin Intolerance Comment:myalgias Medication List Accurate as of April 17, 2025 7:42 AM. If you have any questions, ask your nurse or doctor. CONTINUE taking these medications albuterol HFA 90 mcg/actuation inhaler Commonly known as: PROVENTIL HFA, VENTOLIN HFA Inhale 2 puffs as instructed every 4 hours as needed. Aspirin 81 mg Tab atorvastatin 20 mg tablet Commonly known as: LIPITOR Take 1 tablet by mouth once daily. fluticasone 50 mcg/actuation nasal spray Commonly known as: FLONASE Use 1 spray in each nostril once daily. Rinse mouth after use. hydroCHLOROthiazide 25 mg tablet Take 1 tablet by mouth once daily. hydrOXYchloroQUINE 200 mg tablet Commonly known as: PLAQUENIL iv contrast (will be provided with radiology test) CTA ABD/PEL - No IV access, insert saline lock prior to the sedation, infusion, injection for imaging exam. Discontinue saline lock post exam. If Pt. has a central line or IVAD, may access for administration according to line specific nursing protocol. Once exam is complete flush line and de-access according to line specific nursing protocol in the CT contrast administration guidelines link. losartan 100 mg tablet Commonly known as: COZAAR Take 1 tablet by mouth once daily. metoprolol succinate ER 25 mg 24 hr tablet Commonly known as: TOPROL XL Take 2 tablets by mouth once daily. predniSONE 10 mg tablet Commonly known as: DELTASONE tamsulosin 0.4 mg Commonly known as: FLOMAX Take 1 capsule by mouth daily at bedtime. ticagrelor 90 mg tablet Commonly known as: BRILINTA TAKE 1 TABLET TWICE DAILY DATA: I personally reviewed and analyzed all labs, radiographs and available pulmonary function testing PFT: 01/2025 Spirometry indicates no obstruction. The reduced FVC could indicate restriction, recommend lung volumes for definitive determination. Decrease in TLC indicates restriction. CXR: Last XR Chest - Impression Only XR CHEST FLUORO SNIFF TEST Exam End: 03/13/2025 2:14 PM (Final result) Impression: IMPRESSION: Decreased excursion of the right hemidiaphragm, without convincing evidence of paralysis. Health And Safety Inspector: JUSTIN Transcribe Date/Time: Mar 14 2025 10:55A... Sniff test: 03/13/25 IMPRESSION: Decreased excursion of the right hemidiaphragm, without convincing evidence of paralysis. Health And Safety Inspector: JUSTIN Transcribe Date/Time: Mar 14 2025 10:55A Dictated by : BRIAN RUIZ MD This examination was interpreted and the report reviewed and electronically signed by: BRIAN RUIZ MD on Mar 14 2025 11:17AM EST Review of Systems Constitutional: Negative for activity change, appetite change, fever and unexpected weight change. HENT: Negative for congestion, nosebleeds and sinus pain. Respiratory: Positive for cough, shortness of breath and wheezing. Negative for chest tightness. Cardiovascular: Negative for chest pain, palpitations and leg swelling. Allergic/Immunologic: Negative for environmental allergies. (more content not included)... [facility] 04-11-2025 Note HNO ID: [id number] Author: RICCO LUU PA-C Service: ? Author Type: Physician Rn Complex Care Type: Progress Notes Filed: 04/23/2025 09:50 Note Text: April 11, 2025 Standing PSG Orders signed in the last 90 days None Future PSG Orders signed in the last 90 days Ordered Auth. provider HOME SLEEP APNEA TEST (HSAT) [[id number]] 03/16/25 Deidre Soto MD Assoc. diagnoses: Nocturnal hypoxemia [G47.34] Q: Indications: A: Obstructive sleep apnea Q: STOP-BANG conditions - Select All That Apply: A: GENDER = male A2: BMI > 35 kg/m2 A3: AGE > 50 A4: high blood PRESSURE Q: Current use of supplemental oxygen during sleep period?: A: No All Prior Sleep Studies (past 365 days) 03/16/2025 14:47 Sleep Studies HOME SLEEP APNEA TEST (HSAT) HOME SLEEP APNEA TEST (HSAT) Order Status: Ordered, Future Expires: 03/16/26 BMI Readings from Last 2 Encounters: 04/09/25 : 36.43 kg/m? 03/13/25 : 38.27 kg/m? PAST MEDICAL HISTORY Diagnosis Date Aortic stenosis mild BPH associated with nocturia CAD (coronary artery disease) S/p stent Hyperglycemia Hyperlipidemia Hypertension IMPOTENCE, ORGANIC ORIGN Kidney congenitally absent, right L-S radiculopathy right leg, Stenosis on lumbar MRI Obesity Personal history of colonic polyps The medical record was reviewed to determine if the proposed sleep study conforms to the AASM Practice Parameters for the Indications for Polysomnography and Related Procedures, or if the sleep study is indicated for other reasons. Indications for study: KANCHAN suspected without comorbid medical or sleep disorders Sleep study to be performed: Home Sleep Apnea Test (HSAT) Special instructions: None-follow laboratory protocol [facility] Staff Note: I have read the above protocol, edited as needed, and agree to the plan. Ricco Luu PA-C 9:56 AM, 04/11/2025 [facility] 04-10-2025 Note HNO ID: [id number] Author: ?, ?, ? Service: ? Author Type: ? Type: Progress Notes Filed: 04/23/2025 09:50 Note Text: April 10, 2025 An order has been received for Home Sleep Apnea Test (HSAT) from Dr. Soto, [facility] Staff. Visit prep complete. Comments :No The sleep study is scheduled for 04/19/25. Insurance: Payor: [employer] MEDICARE / Plan: [employer] GOLD PLUS / Product Type: HMO / Payer/Plan Subscr Sex Relation Sub. Ins. ID Effective Group Num 1. [employer] MEDICA* GORAN GABRIEL 1945 Male Self [id number] 07/12/22 [id number] [address] [facility] 04-09-2025 Note HNO ID: [id number] Author: MIGUELANGEL COURTNEY MD Service: ? Author Type: Physician Type: Progress Notes Filed: 04/09/2025 18:43 Note Text: Goran Gabriel is a 79 year old male here for a Medicare wellness visit. Medicare Health Risk Assessment General Health Very good Exercise: Minutes/Day 60 min Exercise: Days/Week 4 days Alcohol: Daily Use Never Alcohol: Drinks/Day Patient does not drink Alcohol: 6 or more drinks Never Feel off balance No Concerns: Teeth/Dentures No Concerns: Sexual function No Troubled by feelings None of the above Frequency: Eating healthy diet Nearly every day ADLs requiring help None of the above Safety precautions in home/vehicle Yes Smoke, vape, chews tobacco No Difficulty hearing Yes Difficulty seeing No Current Providers Specialists: I have reviewed specialist-related care of the patient in the medical record. Current care team: Patient Care Team: Miguelangel Courtney MD as PCP - General (Family Medicine) Uzma Hanley APRN.[employer] ANNOUNCER as Director Video (Family Medicine) Willow Marcelo APRN.KATELYNN as Director Video (Family Medicine) Dr Chavez, optometry. [facility] [place], optho Dr Pittman, rheumatology. Dr Cerrato, nephrology Dr Veliz, urology/Stephon Negron urology Dr Soto, pulmonary Dr Oreilly, cardiology. 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 Medical/Family history review Reviewed and updated problem list, medical/surgical/family/social history, medications, and allergies. Opioid use review Opioid Medications (last 90 days) No data to display Anxiety/Depression screening PHQ-2 Score: 0 YOSVANY-7 Score: 0. Recommendation: no further intervention at this time Cognitive screening Mini Cog Score: 4 Cognitive screening reviewed and No further action needed (score 3-5). Functional Observation Was the patient's Timed Up AND Go test unsteady or >= 12 seconds? No Advance Care Planning Surrogate decision maker and/or advance care plan documented Measurements BP 124/68 Pulse 81 Ht 168.5 cm (5' 6.34) Wt 103.4 kg (228 lb) SpO2 94% BMI 36.43 kg/m? Vision Screening: Follows with optometry/ophthalmology ADDITIONAL INFO: Annual Wellness Exam: - General health is very good. - Exercises by walking for about an hour a day, 4 days a week. - Not a smoker, vaper, or tobacco chewer. - Not a drinker. - Balance is good. - No issues with teeth, dentures, or sexual dysfunction. - No concerns with mood or feelings. - ADLs are independent; follows safety precautions at home. - Has a medical living will; daughter is the medical decision-maker. - Received shingles vaccine series 2 years ago at [facility]. - Plans to get a flu shot tonight. - No issues with urination or bowel movements; denies hematochezia or melena. - No swelling noted. - No opioid pain medication use. - No issues with hearing; hearing aids are 4 years old and need updating. - Vision is good; recent eye exam revealed developing cataracts. - Sees Dr. Fagan for eye checks and has an upcoming appointment at [facility]. - Sees Dr. Ball for dermatology. 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 - Sees Dr. Oreilly for cardiology. - Sees Dr. Soto for pulmonology; has an upcoming appointment in 2 weeks. - Sees Dr. Cerrato for nephrology. - Sees Dr. Veliz and DIANNE Collazo, for urology. - Sees Dr. Pittman for rheumatology; has an appointment next month. - Recent weight loss of 18 lbs since early winter of last year; attributes to dietary changes, including eating more salads and meat. - Denies any issues with back pain. Inflammatory Arthritis: - Managed with Plaquenil and Prednisone PRN. - Recent flare-up in the hand, causing difficulty making a fist; pain has now moved to the hip. - Most days, the condition is tolerable. - No obvious deformity in the hands. Pulmonary Concerns: - Breathing issues, particularly when walking uphill; tires easily. - Dr. Soto ordered a sleep study, scheduled for tonight. - Dr. Soto mentioned that one lung is not getting the full volume of air it should. - Experiences a cough in the morning, described as clearing the pipes. CKD: - Born with one kidney; kidney function is reportedly normal. - Sees Dr. Cerrato for nephrology. - Taking Flomax to help with kidney function. CAD: - Recent stent placement; no change in breathing issues post-procedure. - Taking Brilinta for the stent. - Taking Lipitor for cholesterol management. - Taking hydrochlorothiazide, losartan, and metoprolol for blood pressure management. 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 ROS: Ears/Nose/Mouth/Throat: (-) dental problems Cardiovascular: (-) peripheral edema Respiratory: (+) morning cough, (+) exertional dyspnea, (-) wheezing Gastrointestinal: (-) bloody stools, (-) black stools Genitourinary: (-) urinary difficulties, (-) sexual dysfunction Musculoskeletal: (+) hand joint pain, (+) (more content not included)... [facility] 03-16-2025 Telephone encounter Note Spoke to patient. Sniff test negative for paralysis. Has eventration of diaphragm. Overnight oximetry shows desaturations with pattern suggestive of sleep apnea. Will order HSAT. [facility] 03-16-2025 Miscellaneous Notes Spoke to patient. Sniff test negative for paralysis. Has eventration of diaphragm. Overnight oximetry shows desaturations with pattern suggestive of sleep apnea. Will order HSAT. documented in this encounter [facility] 03-13-2025 Note HNO ID: [id number] Author: UZMA HANLEY APRN.[employer] ANNOUNCER Service: ? Author Type: Nurse Practitioner Type: Progress Notes Filed: 03/13/2025 17:33 Note Text: This is a 79 year old male who presents today with: The patient is a 79-year-old male with HTN, presenting for evaluation of blood pressure control. HISTORY OF PRESENT ILLNESS: Hypertension: Was unsure if he was taking 25 mg or 50 mg at last office visit. - He was only taking 25 mg (was ordered 50 mg). - Goran denies side effects from metoprolol. - Home BP readings: 120s-130s systolic. - No recent episodes of dizziness. - Follow-up with Dr. Courtney scheduled for the end of the month. PAST MEDICAL HISTORY: PAST MEDICAL HISTORY Diagnosis Date Aortic stenosis mild BPH associated with nocturia CAD (coronary artery disease) S/p stent Hyperglycemia Hyperlipidemia Hypertension IMPOTENCE, ORGANIC ORIGN Kidney congenitally absent, right L-S radiculopathy right leg, Stenosis on lumbar MRI Obesity Personal history of colonic polyps PAST SURGICAL HISTORY Procedure Laterality Date APPENDECTOMY COLONOSCOPY 10/05/2018 COLONOSCOPY FLX DX W/COLLJ SPEC WHEN PFRMD 09/05/2013 normal colon - prior polyps 5 year follow up COLSC FLX W/RMVL OF TUMOR POLYP LESION SNARE TQ 01/20/2005 COLSC FLX W/RMVL OF TUMOR POLYP LESION SNARE TQ 06/13/2010 polyps cecum and 45cm, tubular adenomas PAST SURGICAL HISTORY OF 12/25/2024 INSERT INTRACORONARY STENT-PER MAJOR VESSEL OR BRANCH RPR 1ST INGUN HRNA AGE 5 YRS/> REDUCIBLE Hernia repair, inguinal bilateral RX RIB FRACTURE W BARREL DRUM CUTTER FIXATN TONSILLECTOMY PRIMARY/SECONDARY Tonsillectomy ALLERGIES Simvastatin MEDICATIONS Current Outpatient Medications Medication Sig albuterol HFA (PROVENTIL HFA, VENTOLIN HFA) 90 mcg/actuation inhaler Inhale 2 puffs as instructed every 4 hours as needed. hydroCHLOROthiazide 25 mg tablet Take 1 tablet by mouth once daily. ticagrelor (BRILINTA) 90 mg tablet Take 1 tablet by mouth two times a day. fluticasone (FLONASE) 50 mcg/actuation nasal spray Use 1 spray in each nostril once daily. Rinse mouth after use. Aspirin 81 mg tab Take 81 mg by mouth one time only. Pre cath metoprolol succinate ER (TOPROL XL) 25 mg 24 hr tablet Take 2 tablets by mouth once daily. iv contrast (will be provided with radiology test) CTA ABD/PEL - No IV access, insert saline lock prior to the sedation, infusion, injection for imaging exam. Discontinue saline lock post exam. If Pt. has a central line or IVAD, may access for administration according to line specific nursing protocol. Once exam is complete flush line and de-access according to line specific nursing protocol in the CT contrast administration guidelines link. atorvastatin (LIPITOR) 20 mg tablet Take 1 tablet by mouth once daily. losartan (COZAAR) 100 mg tablet Take 1 tablet by mouth once daily. tamsulosin (FLOMAX) 0.4 mg Take 1 capsule by mouth daily at bedtime. predniSONE (DELTASONE) 10 mg tablet Take 10 mg by mouth as needed. hydroxychloroquine (PLAQUENIL) 200 mg tablet Take 200 mg by mouth two times a day. No current facility-administered medications for this visit. FAMILY HISTORY Problem Relation Age of Onset Diabetes Father SOCIAL HISTORY[1] REVIEW OF SYSTEMS Constitutional: (+) exertional fatigue Cardiovascular: (+) peripheral edema EXAM: BP 128/72 Pulse 66 Wt 104.3 kg (230 lb) SpO2 95% BMI 38.27 kg/m? PHYSICAL EXAM: General Appearance: Well appearing, alert, in no acute distress, well-hydrated, well nourished.. Skin: Skin color, texture, turgor normal, no suspicious rashes or lesions. Head: Normocephalic, no masses, lesions, tenderness or abnormalities. Eyes: Anicteric sclera. Extraocular movements are intact. . Neck: Supple, no adenopathy; thyroid symmetric, normal size, no bruits. Lungs: Lungs clear to auscultation. No wheezing, rhonchi, rales.. Heart: RRR without murmur, gallop, or rubs. No ectopy. Extremities: No deformities, edema, skin discoloration, clubbing or cyanosis. Good capillary refill. . Neurologic: Gait normal. ASSESSMENT/PLAN 1. Essential (primary) hypertension (I10) - Blood pressure well-controlled on toprol 50 mg daily, with home readings typically in the 120s-130s mmHg. - Continue metoprolol BID as currently prescribed. - Follow-up at the end of the month with Dr. Courtney for physical exam. Discussed treatment plan and patient voices understanding. Patient's questions answered appropriately. Medications and potential side effects were discussed and patient voices understanding. Return to the office as scheduled or as needed for worsening/no improvement. Uzma Hanley APRN.TRAIN ANNOUNCER Recording using [employer] software for draft documentation of the visit was discussed with the patient/authorized credit representative; all questions welcomed and answered. Patient/authorized credit representative agreed to proceed [1] Social History Tobacco Use Smok (more content not included)... [facility] 03-13-2025 History of Present illness Narrative This is a 79 year old male who presents today with: The patient is a 79-year-old male with HTN, presenting for evaluation of blood pressure control. HISTORY OF PRESENT ILLNESS: Hypertension: Was unsure if he was taking 25 mg or 50 mg at last office visit. - He was only taking 25 mg (was ordered 50 mg). - Goran denies side effects from metoprolol. - Home BP readings: 120s-130s systolic. - No recent episodes of dizziness. - Follow-up with Dr. Courtney scheduled for the end of the month. PAST MEDICAL HISTORY: PAST MEDICAL HISTORY Diagnosis Date Aortic stenosis mild BPH associated with nocturia CAD (coronary artery disease) S/p stent Hyperglycemia Hyperlipidemia Hypertension IMPOTENCE, ORGANIC ORIGN Kidney congenitally absent, right L-S radiculopathy right leg, Stenosis on lumbar MRI Obesity Personal history of colonic polyps PAST SURGICAL HISTORY Procedure Laterality Date APPENDECTOMY COLONOSCOPY 10/05/2018 COLONOSCOPY FLX DX W/COLLJ SPEC WHEN PFRMD 09/05/2013 normal colon - prior polyps 5 year follow up COLSC FLX W/RMVL OF TUMOR POLYP LESION SNARE TQ 01/20/2005 COLSC FLX W/RMVL OF TUMOR POLYP LESION SNARE TQ 06/13/2010 polyps cecum and 45cm, tubular adenomas PAST SURGICAL HISTORY OF 12/25/2024 INSERT INTRACORONARY STENT-PER MAJOR VESSEL OR BRANCH RPR 1ST INGUN HRNA AGE 5 YRS/> REDUCIBLE Hernia repair, inguinal bilateral RX RIB FRACTURE W BARREL DRUM CUTTER FIXATN TONSILLECTOMY PRIMARY/SECONDARY <AGE 12 Tonsillectomy ALLERGIES Simvastatin MEDICATIONS Current Outpatient Medications Medication Sig albuterol HFA (PROVENTIL HFA, VENTOLIN HFA) 90 mcg/actuation inhaler Inhale 2 puffs as instructed every 4 hours as needed. hydroCHLOROthiazide 25 mg tablet Take 1 tablet by mouth once daily. ticagrelor (BRILINTA) 90 mg tablet Take 1 tablet by mouth two times a day. fluticasone (FLONASE) 50 mcg/actuation nasal spray Use 1 spray in each nostril once daily. Rinse mouth after use. Aspirin 81 mg tab Take 81 mg by mouth one time only. Pre cath metoprolol succinate ER (TOPROL XL) 25 mg 24 hr tablet Take 2 tablets by mouth once daily. iv contrast (will be provided with radiology test) CTA ABD/PEL - No IV access, insert saline lock prior to the sedation, infusion, injection for imaging exam. Discontinue saline lock post exam. If Pt. has a central line or IVAD, may access for administration according to line specific nursing protocol. Once exam is complete flush line and de-access according to line specific nursing protocol in the CT contrast administration guidelines link. atorvastatin (LIPITOR) 20 mg tablet Take 1 tablet by mouth once daily. losartan (COZAAR) 100 mg tablet Take 1 tablet by mouth once daily. tamsulosin (FLOMAX) 0.4 mg Take 1 capsule by mouth daily at bedtime. predniSONE (DELTASONE) 10 mg tablet Take 10 mg by mouth as needed. hydroxychloroquine (PLAQUENIL) 200 mg tablet Take 200 mg by mouth two times a day. No current facility-administered medications for this visit. FAMILY HISTORY Problem Relation Age of Onset Diabetes Father SOCIAL HISTORY[1] REVIEW OF SYSTEMS Constitutional: (+) exertional fatigue Cardiovascular: (+) peripheral edema EXAM: BP 128/72 Pulse 66 Wt 104.3 kg (230 lb) SpO2 95% BMI 38.27 kg/m PHYSICAL EXAM: General Appearance: Well appearing, alert, in no acute distress, well-hydrated, well nourished.. Skin: Skin color, texture, turgor normal, no suspicious rashes or lesions. Head: Normocephalic, no masses, lesions, tenderness or abnormalities. Eyes: Anicteric sclera. Extraocular movements are intact. . Neck: Supple, no adenopathy; thyroid symmetric, normal size, no bruits. Lungs: Lungs clear to auscultation. No wheezing, rhonchi, rales.. Heart: RRR without murmur, gallop, or rubs. No ectopy. Extremities: No deformities, edema, skin discoloration, clubbing or cyanosis. Good capillary refill. . Neurologic: Gait normal. ASSESSMENT/PLAN 1. Essential (primary) hypertension (I10) - Blood pressure well-controlled on toprol 50 mg daily, with home readings typically in the 120s-130s mmHg. - Continue metoprolol BID as currently prescribed. - Follow-up at the end of the month with Dr. Courtney for physical exam. Discussed treatment plan and patient voices understanding. Patient's questions answered appropriately. Medications and potential side effects were discussed and patient voices understanding. Return to the office as scheduled or as needed for worsening/no improvement. Uzma Hanley APRN.TRAIN ANNOUNCER Recording using [employer] software for draft documentation of the visit was discussed with the patient/authorized credit representative; all questions welcomed and answered. Patient/authorized credit representative agreed to proceed [1] Social History Tobacco Use Smoking status: Never Smokeless tobacco: Never Vaping Use Vaping status: Never Used Substance Use Topics Alcohol use: Not Currently Drug use: Never documented in this encounter [facility] 03-13-2025 Instructions Uzma Hanley APRN.CNP - 03/13/2025 8:11 AM EDT - Continue your metoprolol as you have been taking it: two tablets each morning. - Keep checking your blood pressure at home. - Attend your [id number] physical appointment with Dr. Courtney as scheduled. - Complete the sniff test at [place] today, as ordered by Dr. Soto. documented in this encounter [facility] 02-15-2025 Note HNO ID: [id number] Author: DEIDRE SOTO MD Service: ? Author Type: Physician Type: Progress Notes Filed: 02/15/2025 12:43 Note Text: . Respiratory Fontana Note Patient name: Goran Gabriel PCP: Miguelangel Courtney MD Referring Physician: Recording using [employer] software for draft documentation of the visit was discussed with the patient/authorized credit representative; all questions welcomed and answered. Patient/authorized credit representative agreed to proceed Consultation requested by Dr. Courtney for an opinion regarding SOB. My final recommendations will be communicated back to the requesting physician by way of shared Medical record or letter to requesting physician via US mail. CC: Shortness of breath HPI: Goran Gabriel 79 year old male never smoker with PMH significant for class II obesity, aortic stenosis, HLD, HTN, single kidney (congenital absence), CAD s/p stent in December now on Brilinta being referred for evaluation of shortness of breath. Review of recent imaging shows an elevated right hemidiaphragm that has been present since at least 2014. Goran reports chronic dyspnea, which he describes as a sensation of something on my chest. The dyspnea is exacerbated by high humidity and bending over while working outside, but is alleviated by breathing easily, staying inside, or staying in the shade. Dyspnea has been present for years and not progressive in nature. Recent history is notable for CAD s/p stent and he is currently taking Brilinta. He denies worsening of his shortness of breath since starting the Brilinta. He denies wheezing, orthopnea, or dyspnea triggered by strong odors or fumes. His reports that he struggles to breath at night, breathes noisily but no snoring. At times she is concerned that he is not breathing at all. He has a daily morning cough with clear phlegm, which resolves quickly. He also experiences sneezing, particularly when outside during this time of year, but denies any other seasonal allergy symptoms. He is currently using Flonase nasal spray. No history of asthma. Review of chest imaging shows a chronic elevated right diaphragm and previous PFTs show restriction as well. He was wondering if chest trauma could cause his diaphragm issue. Apparently had a significant fall in 2018 resulting in multiple right rib fractures. DATA: PFT 01/2025: Function test show moderate restriction and small airways obstruction PFT 2020: Imaging / Diagnostic Studies: DATE OF EXAM: Nov 14 2024 8:38AM [facility] 0126 - CTA CHEST (GATED) WO/W IVCON / PROCEDURE REASON: Encounter for preprocedural cardiovascular examination IMPRESSION: 1. Trileaflet aortic valve , with mild calcific aortic stenosis. The aortic valve calcium score is calculated at 2188 Agatston units. 2. Aortic annular measurements are as follows: diameter: 3.0 x 2.4 cm, mean diameter 2.6 cm, circumference: 8.5 cm, cross-sectional area: 513 mm2 3. Dilated thoracic and normal abdominal aorta. The maximum thoracic aortic dimension is recorded at the level of the sinuses of Valsalva (4.3 cm measured sinus to sinus). No acute aortic pathology. 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 There is a 50% origin stenosis of the right subclavian artery origin and left vertebral artery origin 4. The pelvic arteries, including the common femoral arteries are normal in course, caliber, and contour. The minimal luminal caliber throughout = 0.9 cm. 5. The cardiovascular structures lie a safe distance from the sternum (>1 cm), as scribed above. 6. There is an elevated hemidiaphragm with compression of right middle lobe and right lower lobe lung parenchyma with atelectasis and volume loss. The hepatic flexure the colon insinuates itself between the liver and elevated hemidiaphragm. The liver is twisted on its axis. There is an absent right kidney. There is minimal sigmoid diverticulosis without evidence of diverticulitis. There is a 25 mm nodule adjacent to the posterior left aspect of the prostate either representing prostate tissue or seminal vesicle tissue. Clinical correlation to PSA levels and rectal exam may be warranted. The cardiac portion of the study was interpreted by Dr. Moises Martinez from the Cardiology Department, and the noncardiac portion was interpreted by Dr. Brayan Alonzo from Radiology I personally reviewed the images which shows elevated right hemidiaphragm with compressive atelectasis. No other lung abnormality CXR 05/2023: Chest x-ray shows marked elevation of the right hemidiaphragm PAST MEDICAL HISTORY Diagnosis Date Aortic stenosis mild BPH associated with nocturia CAD (coronary artery disease) S/p stent Hyperglycemia Hyperlipidemia Hypertension IMPOTENCE, ORGANIC ORIGN Kidney congenitally absent, right L-S radiculopathy right leg, Stenosi (more content not included)... [facility] 02-08-2025 Telephone encounter Note Call placed to patient and notified of below with verbalized understanding. Scheduled 1 month BP recheck for 03/13/2025. Tom Cook RN [facility] 02-08-2025 Miscellaneous Notes Call placed to patient and notified of below with verbalized understanding. Scheduled 1 month BP recheck for 03/13/2025. Tom Cook RN Lets have him go ahead and resume the two pills daily. Let's have him follow-up in another month to recheck his blood pressure. Uzma Hanley APRN.KATELYNN Patient calls to let provider know that he is currently only taking one metoprolol ER 25 mg tablets. He reports the first two weeks after he had his stents placed he was doing the two a day but when he filled his pills the third week, he went back to only once a day as he had been taking previously. Patient reports he will wait to hear from provider before resuming the two a day. Tom Cook RN documented in this encounter [facility] 02-07-2025 Note HNO ID: [id number] Author: UZMA HANLEY APRN.TRAIN ANNOUNCER Service: ? Author Type: Nurse Practitioner Type: Progress Notes Filed: 02/07/2025 22:27 Note Text: This is a 79 year old male who presents today with: Goran Gabriel is a 79-year-old male with a history of HTN, presenting for management of blood pressure and associated dizziness. HISTORY OF PRESENT ILLNESS: Hypertension: - Home blood pressure readings range from 113-140 mmHg. - Taking hydrochlorothiazide, losartan, and metoprolol. - Uncertain about taking rwo metoprolol daily. - Recent stent placement; taking Brilinta BID. - Denies current hematuria. - Drinking adequate water. Dizziness: - Occurs in the morning upon getting up, before taking medications. - Episodes are brief and resolve with movement. PAST MEDICAL HISTORY: PAST MEDICAL HISTORY Diagnosis Date Aortic stenosis mild BPH associated with nocturia Hyperglycemia Hyperlipidemia Hypertension IMPOTENCE, ORGANIC ORIGN Kidney congenitally absent, right L-S radiculopathy right leg, Stenosis on lumbar MRI Obesity Personal history of colonic polyps PAST SURGICAL HISTORY Procedure Laterality Date APPENDECTOMY COLONOSCOPY 10/05/2018 COLONOSCOPY FLX DX W/COLLJ SPEC WHEN PFRMD 09/05/13 normal colon - prior polyps 5 year follow up COLSC FLX W/RMVL OF TUMOR POLYP LESION SNARE TQ 01/20/2005 COLSC FLX W/RMVL OF TUMOR POLYP LESION SNARE TQ 06/13/10 polyps cecum and 45cm, tubular adenomas RPR 1ST INGUN HRNA AGE 5 YRS/> REDUCIBLE Hernia repair, inguinal bilateral RX RIB FRACTURE W BARREL DRUM CUTTER FIXATN TONSILLECTOMY PRIMARY/SECONDARY Tonsillectomy ALLERGIES Simvastatin MEDICATIONS Current Outpatient Medications Medication Sig hydroCHLOROthiazide 25 mg tablet Take 1 tablet by mouth once daily. ticagrelor (BRILINTA) 90 mg tablet Take 1 tablet by mouth two times a day. fluticasone (FLONASE) 50 mcg/actuation nasal spray Use 1 spray in each nostril once daily. Rinse mouth after use. Aspirin 81 mg tab Take 81 mg by mouth one time only. Pre cath metoprolol succinate ER (TOPROL XL) 25 mg 24 hr tablet Take 2 tablets by mouth once daily. iv contrast (will be provided with radiology test) CTA ABD/PEL - No IV access, insert saline lock prior to the sedation, infusion, injection for imaging exam. Discontinue saline lock post exam. If Pt. has a central line or IVAD, may access for administration according to line specific nursing protocol. Once exam is complete flush line and de-access according to line specific nursing protocol in the CT contrast administration guidelines link. atorvastatin (LIPITOR) 20 mg tablet Take 1 tablet by mouth once daily. losartan (COZAAR) 100 mg tablet Take 1 tablet by mouth once daily. tamsulosin (FLOMAX) 0.4 mg Take 1 capsule by mouth daily at bedtime. predniSONE (DELTASONE) 10 mg tablet Take 10 mg by mouth as needed. hydroxychloroquine (PLAQUENIL) 200 mg tablet Take 200 mg by mouth two times a day. No current facility-administered medications for this visit. FAMILY HISTORY Problem Relation Age of Onset Diabetes Father Social History Tobacco Use Smoking status: Never Smokeless tobacco: Never Vaping Use Vaping status: Never Used Substance Use Topics Alcohol use: Not Currently Drug use: Never REVIEW OF SYSTEMS Genitourinary: (-) hematuria Skin: (+) bruising Neurological: (+) dizziness EXAM: BP 132/78 Pulse 87 Resp 16 Ht 165.1 cm (5' 5) Wt 104.4 kg (230 lb 3.2 oz) SpO2 96% BMI 38.31 kg/m? PHYSICAL EXAM: General Appearance: Well appearing, alert, in no acute distress, well-hydrated, well nourished.. Skin: Skin color, texture, turgor normal, no suspicious rashes or lesions. Head: Normocephalic, no masses, lesions, tenderness or abnormalities. Eyes: Anicteric sclera. Extraocular movements are intact. . Lungs: Lungs clear to auscultation. No wheezing, rhonchi, rales.. Heart: RRR without murmur, gallop, or rubs. No ectopy. Neurologic: Gait normal. ASSESSMENT/PLAN 1. Essential (primary) hypertension (I10) - Home BP readings mostly 113-130 mmHg, with one reading in the 140s. - Currently taking hydrochlorothiazide, losartan, and metoprolol; unsure if he is taking one or two metoprolol daily. - Instructed patient to confirm current metoprolol regimen at home and report back. - Clarified metoprolol 25 mg tablets should be taken as 2 tablets (50 mg total) daily, either together in the morning or split BID. - Advised patient to check BP immediately upon waking when experiencing dizziness. - Encouraged adequate hydration, as morning dizziness may be related to overnight dehydration. - Educated on importance of medication adherence and proper dosing. Discussed treatment plan and patient voices understanding. Patient's questions answered appropriately. Medications and potential side effects were discussed and patient voices understanding. Return to the office as scheduled or as ne (more content not included)... [facility] 02-07-2025 History of Present illness Narrative This is a 79 year old male who presents today with: Goran Gabriel is a 79-year-old male with a history of HTN, presenting for management of blood pressure and associated dizziness. HISTORY OF PRESENT ILLNESS: Hypertension: - Home blood pressure readings range from 113-140 mmHg. - Taking hydrochlorothiazide, losartan, and metoprolol. - Uncertain about taking rwo metoprolol daily. - Recent stent placement; taking Brilinta BID. - Denies current hematuria. - Drinking adequate water. Dizziness: - Occurs in the morning upon getting up, before taking medications. - Episodes are brief and resolve with movement. PAST MEDICAL HISTORY: PAST MEDICAL HISTORY Diagnosis Date Aortic stenosis mild BPH associated with nocturia Hyperglycemia Hyperlipidemia Hypertension IMPOTENCE, ORGANIC ORIGN Kidney congenitally absent, right L-S radiculopathy right leg, Stenosis on lumbar MRI Obesity Personal history of colonic polyps PAST SURGICAL HISTORY Procedure Laterality Date APPENDECTOMY COLONOSCOPY 10/05/2018 COLONOSCOPY FLX DX W/COLLJ SPEC WHEN PFRMD 09/05/13 normal colon - prior polyps 5 year follow up COLSC FLX W/RMVL OF TUMOR POLYP LESION SNARE TQ 01/20/2005 COLSC FLX W/RMVL OF TUMOR POLYP LESION SNARE TQ 06/13/10 polyps cecum and 45cm, tubular adenomas RPR 1ST INGUN HRNA AGE 5 YRS/> REDUCIBLE Hernia repair, inguinal bilateral RX RIB FRACTURE W BARREL DRUM CUTTER FIXATN TONSILLECTOMY PRIMARY/SECONDARY <AGE 12 Tonsillectomy ALLERGIES Simvastatin MEDICATIONS Current Outpatient Medications Medication Sig hydroCHLOROthiazide 25 mg tablet Take 1 tablet by mouth once daily. ticagrelor (BRILINTA) 90 mg tablet Take 1 tablet by mouth two times a day. fluticasone (FLONASE) 50 mcg/actuation nasal spray Use 1 spray in each nostril once daily. Rinse mouth after use. Aspirin 81 mg tab Take 81 mg by mouth one time only. Pre cath metoprolol succinate ER (TOPROL XL) 25 mg 24 hr tablet Take 2 tablets by mouth once daily. iv contrast (will be provided with radiology test) CTA ABD/PEL - No IV access, insert saline lock prior to the sedation, infusion, injection for imaging exam. Discontinue saline lock post exam. If Pt. has a central line or IVAD, may access for administration according to line specific nursing protocol. Once exam is complete flush line and de-access according to line specific nursing protocol in the CT contrast administration guidelines link. atorvastatin (LIPITOR) 20 mg tablet Take 1 tablet by mouth once daily. losartan (COZAAR) 100 mg tablet Take 1 tablet by mouth once daily. tamsulosin (FLOMAX) 0.4 mg Take 1 capsule by mouth daily at bedtime. predniSONE (DELTASONE) 10 mg tablet Take 10 mg by mouth as needed. hydroxychloroquine (PLAQUENIL) 200 mg tablet Take 200 mg by mouth two times a day. No current facility-administered medications for this visit. FAMILY HISTORY Problem Relation Age of Onset Diabetes Father Social History Tobacco Use Smoking status: Never Smokeless tobacco: Never Vaping Use Vaping status: Never Used Substance Use Topics Alcohol use: Not Currently Drug use: Never REVIEW OF SYSTEMS Genitourinary: (-) hematuria Skin: (+) bruising Neurological: (+) dizziness EXAM: BP 132/78 Pulse 87 Resp 16 Ht 165.1 cm (5' 5) Wt 104.4 kg (230 lb 3.2 oz) SpO2 96% BMI 38.31 kg/m PHYSICAL EXAM: General Appearance: Well appearing, alert, in no acute distress, well-hydrated, well nourished.. Skin: Skin color, texture, turgor normal, no suspicious rashes or lesions. Head: Normocephalic, no masses, lesions, tenderness or abnormalities. Eyes: Anicteric sclera. Extraocular movements are intact. . Lungs: Lungs clear to auscultation. No wheezing, rhonchi, rales.. Heart: RRR without murmur, gallop, or rubs. No ectopy. Neurologic: Gait normal. ASSESSMENT/PLAN 1. Essential (primary) hypertension (I10) - Home BP readings mostly 113-130 mmHg, with one reading in the 140s. - Currently taking hydrochlorothiazide, losartan, and metoprolol; unsure if he is taking one or two metoprolol daily. - Instructed patient to confirm current metoprolol regimen at home and report back. - Clarified metoprolol 25 mg tablets should be taken as 2 tablets (50 mg total) daily, either together in the morning or split BID. - Advised patient to check BP immediately upon waking when experiencing dizziness. - Encouraged adequate hydration, as morning dizziness may be related to overnight dehydration. - Educated on importance of medication adherence and proper dosing. Discussed treatment plan and patient voices understanding. Patient's questions answered appropriately. Medications and potential side effects were discussed and patient voices understanding. Return to the office as scheduled or as needed for worsening/no improvement. Uzma Hanley APRN.KATELYNN Recording using [employer] software for draft documentation of the visit was discussed with the patient/authorized credit representative; all questions welcomed and answered. Patient/authorized credit representative agreed to proceed documented in this encounter [facility] 02-07-2025 Telephone encounter Note Lets have him go ahead and resume the two pills daily. Let's have him follow-up in another month to recheck his blood pressure. Uzma Hanley APRN.TRAIN ANNOUNCER [facility] Work Phone: 02-07-2025 Telephone encounter Note Patient calls to let provider know that he is currently only taking one metoprolol ER 25 mg tablets. He reports the first two weeks after he had his stents placed he was doing the two a day but when he filled his pills the third week, he went back to only once a day as he had been taking previously. Patient reports he will wait to hear from provider before resuming the two a day. Tom Cook RN [facility] 02-07-2025 Instructions Uzma Hanley APRN.CNP - 02/07/2025 8:20 AM EDT - Verify your metoprolol dose -- send me a message/call when you get home. . - Measure your blood pressure immediately upon getting up, and note both the reading and any dizziness you experience. - Continue to drink plenty of water to stay well hydrated. documented in this encounter [facility] 01-29-2025 Note HNO ID: [id number] Author: CHEMA OREILLY MD Service: ? Author Type: Physician Type: Progress Notes Filed: 01/29/2025 11:10 Note Text: Chema Oreilly MD Interventional Cardiology [address] [place] [address] [id number] Chief Complaint Patient presents with: Follow Up: 3 month follow up- heart cath at [facility], c/o dizziness in the mornings HISTORY OF PRESENT ILLNESS: Mr. Gabriel is a 79-year-old male with a history of hyperlipidemia and hypertension, status post rotablation and drug-eluting stent placement in the RCA, presenting for follow-up. The patient reports experiencing occasional dizziness upon standing in the mornings. He monitors his blood pressure at home, noting it is sometimes elevated but was perfect today. He feels that the recent intervention has improved his energy levels. He denies any dyspnea or chest pain. He is currently undergoing pulmonary testing for asthma and has a follow-up appointment next month. He also reports nocturnal nasal congestion, leading to mouth breathing during sleep. He notes a red sven on his skin, which he attributes to his blood thinner medication. He denies any issues with his groin. Current medications include aspirin, atorvastatin, hydrochlorothiazide, hydroxychloroquine, losartan, metoprolol, and Brilinta. Cardiac Risk Factors age (male over 45, female over 55), hyperlipidemia, hypertension, family history of CAD PAST MEDICAL HISTORY Diagnosis Date Aortic stenosis mild BPH associated with nocturia Hyperglycemia Hyperlipidemia Hypertension IMPOTENCE, ORGANIC ORIGN Kidney congenitally absent, right L-S radiculopathy right leg, Stenosis on lumbar MRI Obesity Personal history of colonic polyps PAST SURGICAL HISTORY Procedure Laterality Date APPENDECTOMY COLONOSCOPY 10/05/2018 COLONOSCOPY FLX DX W/COLLJ SPEC WHEN PFRMD 09/05/13 normal colon - prior polyps 5 year follow up COLSC FLX W/RMVL OF TUMOR POLYP LESION SNARE TQ 01/20/2005 COLSC FLX W/RMVL OF TUMOR POLYP LESION SNARE TQ 06/13/10 polyps cecum and 45cm, tubular adenomas RPR 1ST INGUN HRNA AGE 5 YRS/> REDUCIBLE Hernia repair, inguinal bilateral RX RIB FRACTURE W 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 Rinse mouth after use. 3 each 3 Aspirin 81 mg tab Take 81 mg by mouth one time only. Pre cath metoprolol succinate ER (TOPROL XL) 25 mg 24 hr tablet Take 2 tablets by mouth once daily. 90 tablet 3 iv contrast (will be provided with radiology test) CTA ABD/PEL - No IV access, insert saline lock prior to the sedation, infusion, injection for imaging exam. Discontinue saline lock post exam. If Pt. has a central line or IVAD, may access for administration according to line specific nursing protocol. Once exam is complete flush line and de-access according to line specific nursing protocol in the CT contrast administration guidelines link. 1 each 0 atorvastatin (LIPITOR) 20 mg tablet Take 1 tablet by mouth once daily. 90 tablet 3 losartan (COZAAR) 100 mg tablet Take 1 tablet by mouth once daily. 90 tablet 3 tamsulosin (FLOMAX) 0.4 mg Take 1 capsule by mouth daily at bedtime. 90 capsule 3 predniSONE (DELTASONE) 10 mg tablet Take 10 mg by mouth as needed. hydroxychloroquine (PLAQUENIL) 200 mg tablet Take 200 mg by mouth two times a day. hydroCHLOROthiazide 25 mg tablet Take 1 tablet by mouth once daily. 90 tablet 3 ticagrelor (BRILINTA) 90 mg tablet Take 1 tablet by mouth two times a day. 60 tablet 3 No current facility-administered medications for this visit. Review of Systems Constitutional: Negative for chills, diaphoresis, fever, malaise/fatigue and weight loss. HENT: Negative for congestion, ear discharge, ear pain, hearing loss, nosebleeds, sinus pain, sore throat and tinnitus. Eyes: Negative for blurred vision, double vision, photophobia, pain, discharge and redness. Respiratory: Negative for cough, hemoptysis, sputum production, shortness of breath, wheezing and stridor. Cardiovascular: Negative for chest pain, palpitations, orthopnea, claudication, leg swelling and PND. Gastrointestinal: Negative for abdominal pain, blood in stool, constipation, diarrhea, heartburn, melena, nausea and vomiting. Genitourinary: Negative for dysuria, flank pain, frequency, hematuria and urgency. Musculoskeletal: Negative for back pain, falls, joint pain, myalgias and neck pain. Skin: Negative for itching an (more content not included)... [facility] 01-29-2025 History of Present illness Narrative Images from the original note were not included. Chema Oreilly MD Interventional Cardiology [address] [place] [address] [phone] Chief Complaint Patient presents with: Follow Up: 3 month follow up- heart cath at [facility], c/o dizziness in the mornings HISTORY OF PRESENT ILLNESS: Mr. Gabriel is a 79-year-old male with a history of hyperlipidemia and hypertension, status post rotablation and drug-eluting stent placement in the RCA, presenting for follow-up. The patient reports experiencing occasional dizziness upon standing in the mornings. He monitors his blood pressure at home, noting it is sometimes elevated but was perfect today. He feels that the recent intervention has improved his energy levels. He denies any dyspnea or chest pain. He is currently undergoing pulmonary testing for asthma and has a follow-up appointment next month. He also reports nocturnal nasal congestion, leading to mouth breathing during sleep. He notes a red sven on his skin, which he attributes to his blood thinner medication. He denies any issues with his groin. Current medications include aspirin, atorvastatin, hydrochlorothiazide, hydroxychloroquine, losartan, metoprolol, and Brilinta. Cardiac Risk Factors age (male over 45, female over 55), hyperlipidemia, hypertension, family history of CAD PAST MEDICAL HISTORY Diagnosis Date Aortic stenosis mild BPH associated with nocturia Hyperglycemia Hyperlipidemia Hypertension IMPOTENCE, ORGANIC ORIGN Kidney congenitally absent, right L-S radiculopathy right leg, Stenosis on lumbar MRI Obesity Personal history of colonic polyps PAST SURGICAL HISTORY Procedure Laterality Date APPENDECTOMY COLONOSCOPY 10/05/2018 COLONOSCOPY FLX DX W/COLLJ SPEC WHEN PFRMD 09/05/13 normal colon - prior polyps 5 year follow up COLSC FLX W/RMVL OF TUMOR POLYP LESION SNARE TQ 01/20/2005 COLSC FLX W/RMVL OF TUMOR POLYP LESION SNARE TQ 06/13/10 polyps cecum and 45cm, tubular adenomas RPR 1ST INGUN HRNA AGE 5 YRS/> REDUCIBLE Hernia repair, inguinal bilateral RX RIB FRACTURE W BARREL DRUM CUTTER FIXATN TONSILLECTOMY PRIMARY/SECONDARY <AGE 12 Tonsillectomy FAMILY HISTORY Problem Relation Age of Onset Diabetes Father Social History Tobacco Use Smoking status: Never Smokeless tobacco: Never Vaping Use Vaping status: Never Used Substance Use Topics Alcohol use: Not Currently Drug use: Never ALLERGIES Allergen Reactions Simvastatin Intolerance myalgias Medications: Current Outpatient Medications Medication Sig Dispense Refill fluticasone (FLONASE) 50 mcg/actuation nasal spray Use 1 spray in each nostril once daily. Rinse mouth after use. 3 each 3 Aspirin 81 mg tab Take 81 mg by mouth one time only. Pre cath metoprolol succinate ER (TOPROL XL) 25 mg 24 hr tablet Take 2 tablets by mouth once daily. 90 tablet 3 iv contrast (will be provided with radiology test) CTA ABD/PEL - No IV access, insert saline lock prior to the sedation, infusion, injection for imaging exam. Discontinue saline lock post exam. If Pt. has a central line or IVAD, may access for administration according to line specific nursing protocol. Once exam is complete flush line and de-access according to line specific nursing protocol in the CT contrast administration guidelines link. 1 each 0 atorvastatin (LIPITOR) 20 mg tablet Take 1 tablet by mouth once daily. 90 tablet 3 losartan (COZAAR) 100 mg tablet Take 1 tablet by mouth once daily. 90 tablet 3 tamsulosin (FLOMAX) 0.4 mg Take 1 capsule by mouth daily at bedtime. 90 capsule 3 predniSONE (DELTASONE) 10 mg tablet Take 10 mg by mouth as needed. hydroxychloroquine (PLAQUENIL) 200 mg tablet Take 200 mg by mouth two times a day. hydroCHLOROthiazide 25 mg tablet Take 1 tablet by mouth once daily. 90 tablet 3 ticagrelor (BRILINTA) 90 mg tablet Take 1 tablet by mouth two times a day. 60 tablet 3 No current facility-administered medications for this visit. Review of Systems Constitutional: Negative for chills, diaphoresis, fever, malaise/fatigue and weight loss. HENT: Negative for congestion, ear discharge, ear pain, hearing loss, nosebleeds, sinus pain, sore throat and tinnitus. Eyes: Negative for blurred vision, double vision, photophobia, pain, discharge and redness. Respiratory: Negative for cough, hemoptysis, sputum production, shortness of breath, wheezing and stridor. Cardiovascular: Negative for chest pain, palpitations, orthopnea, claudication, leg swelling and PND. Gastrointestinal: Negative for abdominal pain, blood in stool, constipation, diarrhea, heartburn, melena, nausea and vomiting. Genitourinary: Negative for dysuria, flank pain, frequency, hematuria and urgency. Musculoskeletal: Negative for back pain, falls, joint pain, myalgias and neck pain. Skin: Negative for itching and rash. Neurological: Negative for dizziness, tingling, tremors, sensory change, speech change, focal weakness, seizures, loss of consciousness, weakness and headaches. Endo/Heme/Allergies: Negative for environmental allergies and polydipsia. Does not bruise/bleed easily. Psychiatric/Behavioral: Negative for depression, hallucinations, memory loss, substance abuse and suicidal ideas. The patient is not nervous/anxious and does not have insomnia. Physical Examination: Vitals:BP 116/60 Pulse 86 Resp 14 Ht 5' 5 (1.65m) Wt 232 lb (105.2kg) SpO2 96% BMI 38.61 kg/(m^2). BP w/Orthostatic Vitals Date and Time Orthostatic BP Orthostatic Pulse BP Pulse BP Position BP Site BP Cuff Size 01/29/25 1053 -- -- 116/60 86 Sitting Right Arm Large Adult Peak Flow Date and Time PF Resp 01/29/25 105 -- 14 Last 2 Encounter Wt Readings: Date: Wt: 01/29/2025 105.2 kg (232 lb) 01/17/2025 102.5 kg (226 lb) Physical Exam Constitutional: General: He is not in acute distress. Appearance: He is not diaphoretic. HENT: Head: Normocephalic and atraumatic. Right Ear: External ear normal. Left Ear: External ear normal. Nose: Nose normal. Mouth/Throat: Pharynx: Oropharynx is clear. Eyes: General: Right eye: No discharge. Left eye: No discharge. Conjunctiva/sclera: Conjunctivae normal. Pupils: Pupils are equal, round, and reactive to light. Cardiovascular: Rate and Rhythm: Normal rate and regular rhythm. Heart sounds: Normal heart sounds, S1 normal and S2 normal. No murmur heard. No friction rub. No gallop. No S3 or S4 sounds. Pulmonary: Effort: Pulmonary effort is normal. No respiratory distress. Breath sounds: Normal breath sounds. No wheezing or rales. Chest: Chest wall: No tenderness. Abdominal: General: Abdomen is flat. Musculoskeletal: General: Normal range of motion. Cervical back: Normal range of motion and neck supple. Skin: General: Skin is warm and dry. Neurological: General: No focal deficit present. Mental Status: He is alert and oriented to person, place, and time. Psychiatric: Mood and Affect: Mood normal. Pertinent Labs: CBC: Hemoglobin (g/dL) Date Value 12/26/2024 12.9 10/24/2020 13.9 Hematocrit (%) Date Value 12/26/2024 38.3 10/24/2020 43.3 WBC (k/uL) Date Value 12/26/2024 10.89 10/24/2020 7.56 Platelet Count (k/uL) Date Value 12/26/2024 228 10/24/2020 217 BMP: Glucose (mg/dL) Date Value 12/26/2024 135 10/24/2020 111 Potassium (mmol/L) Date Value 12/26/2024 4.2 10/24/2020 4.2 Sodium (mmol/L) Date Value 12/26/2024 139 10/24/2020 139 Chloride (mmol/L) Date Value 12/26/2024 103 10/24/2020 101 CO2 (mmol/L) Date Value 12/26/2024 27 10/24/2020 28 Creatinine (mg/dL) Date Value 12/26/2024 0.89 10/24/2020 1.01 BUN (mg/dL) Date Value 12/26/2024 14 10/24/2020 15 Anion Gap (mmol/L) Date Value 12/26/2024 9 10/24/2020 10 Calcium (mg/dL) Date Value 10/24/2020 9.7 Calcium, Total (mg/dL) Date Value 12/26/2024 9.5 INR: Lipid Profile: Cholesterol, Total Date Value Ref Range Status 09/19/2024 142 <200 mg/dL Final Comment: <200 mg/dL, Desirable 200-239 mg/dL, Borderline high >239 mg/dL, High HDL Cholesterol Date Value Ref Range Status 09/19/2024 48 >39 mg/dL Final Comment: 40-59 mg/dL, Acceptable >59 mg/dL, High: Negative risk factor for coronary heart disease <40 mg/dL, Low: Positive risk factor for coronary heart disease LDL Cholesterol, Calculated Date Value Ref Range Status 09/19/2024 72 <100 mg/dL Final Comment: <100 mg/dL, Optimal 100-129 mg/dL, Near optimal/above optimal 130-159 mg/dL, Borderline high 160-189 mg/dL, High >189 mg/dL, Very high Secondary prevention optimal LDL Cholesterol levels are recommended to be < 70 mg/dL Triglyceride Date Value Ref Range Status 09/19/2024 109 <150 mg/dL Final Comment: <150 mg/dL, Normal 150-199 mg/dL, Borderline high 200-499 mg/dL, High >499 mg/dL, Very high Hemoglobin A1C: No results found for: HGBA1C TSH: No results found for: TSHREFL Prior Cardiac Testing None Assessment and Plan: 79-year-old male with a history of hyperlipidemia and hypertension, status post rotablation and drug-eluting stent placement in the RCA ASSESSMENT/PLAN: 1. Postsurgical percutaneous transluminal coronary angioplasty (PTCA) status - ICD9: V45.82, ICD10: Z98.61 (primary diagnosis) DAPT 2. Essential hypertension - ICD9: 401.9, ICD10: I10 - Controlled - Continue current medications - Recommend home blood pressure monitoring, to bring results to next visit - Encouraged sodium restriction, DASH or Mediterranean diet - Recommend regular aerobic exercise - HYDROCHLOROTHIAZIDE 25 MG TABLET 3. Mixed hyperlipidemia - ICD9: 272.2, ICD10: E78.2 - Controlled - Continue current medications - Counseled on healthy diet and regular exercise 4. Dizziness and giddiness - ICD9: 780.4, ICD10: R42 Possibly orthostatic hypotension Compressor Hydration We discussed your follow-up care for hyperlipidemia, hypertension, and your history of coronary artery disease with a drug-eluting stent: - Your blood pressure today was 116/60, and your pulse was 86. These are good numbers. - Continue taking your current medications, including aspirin, atorvastatin, hydrochlorothiazide, hydroxychloroquine, losartan, metoprolol, and tacrolimus, as prescribed. - Refills for hydrochlorothiazide and brilinta have been sent to your pharmacy. - Be cautious when changing positions, as some medications may cause dizziness. Stand up slowly to avoid lightheadedness.. We discussed the red/black kurtz on your skin: - These are likely due to the blood thinner you are taking. This is a common side effect and not a cause for concern unless the kurtz worsen or you experience other symptoms. Follow-up: - I will see you again in 6 months for your next follow-up. If you experience any issues before then, please contact our office. Chema Oreilly MD Follow up plannin months Electronically signed by Chema Oreilly MD on January 29, 2025, 11:05 AM The above note was partially created using a dictation recognition software. A reasonable attempt has been made to correct any errors. documented in this encounter [facility] 01-18-2025 Telephone encounter Note Contacted patient, scheduled 02-15 [facility] Work Phone: 01-18-2025 Miscellaneous Notes Contacted patient, scheduled - Patient is notified. Please contact him to set up with pul. Pfts show no definite emphysema or asthma. Shows restriction where the lungs don't move as much. Can sometimes be related to the way a person is built but other diseases can cause it as well. Lets have him see pulmonary given his shortness of breath. documented in this encounter [facility] 01-17-2025 Telephone encounter Note Patient is notified. Please contact him to set up with pulm. [facility] 01-17-2025 Telephone encounter Note Pfts show no definite emphysema or asthma. Shows restriction where the lungs don't move as much. Can sometimes be related to the way a person is built but other diseases can cause it as well. Lets have him see pulmonary given his shortness of breath. [facility] 01-10-2025 Note HNO ID: [id number] Author: MIGUELANGEL COURTNEY MD Service: ? Author Type: Physician Type: Progress Notes Filed: 01/10/2025 12:27 Note Text: Goran Gabriel is a 79-year-old male with a history of CAD, HTN, and dyspnea, presenting for follow-up after recent RCA stent placement. HPI RCA Stent Placement: - Hospitalized at [facility] from 12/25 to 12/26. - Underwent heart catheterization by Dr. Oreilly on 12/25, with RCA stent placement. - Initial attempt on 11/14 was unsuccessful. - RCA was 90% narrowed and severely calcified. - Procedure involved a rotablator; Goran reports feeling warmth and discomfort during the procedure. - Post-procedure, experienced lightheadedness and dizziness for a few days; still occasionally feels dizzy. - No current issues with bruising, pain, or swelling at the catheterization site. - Taking Brilinta, aspirin, atorvastatin, and antihypertensive medications. Dyspnea: - Chronic dyspnea, exacerbated by heat and physical activity. - Previous spirometry on 10/31/2020 showed mild obstruction and possible restriction. - CT negative for fibrosis on recent CTA - Considering the use of an inhaler. Hypertension: - Home blood pressure readings range from 137/82 to 142/82 mmHg. - Blood pressure today was 142/82 mmHg. Diarrhea: - Intermittent diarrhea with significant gas, x2 weeks. - No hematochezia. - Denies recent illness, travel, or antibiotic use. - Last colonoscopy in 2019; family history of colon cancer in son, who is now cancer-free. MEDICATIONS: Current Outpatient Medications Medication Sig fluticasone (FLONASE) 50 mcg/actuation nasal spray Use 1 spray in each nostril once daily. Rinse mouth after use. Aspirin 81 mg tab Take 81 mg by mouth one time only. Pre cath metoprolol succinate ER (TOPROL XL) 25 mg 24 hr tablet Take 2 tablets by mouth once daily. ticagrelor (BRILINTA) 90 mg tablet Take 1 tablet by mouth two times a day. atorvastatin (LIPITOR) 20 mg tablet Take 1 tablet by mouth once daily. losartan (COZAAR) 100 mg tablet Take 1 tablet by mouth once daily. tamsulosin (FLOMAX) 0.4 mg Take 1 capsule by mouth daily at bedtime. hydroCHLOROthiazide 25 mg tablet Take 1 tablet by mouth once daily. hydroxychloroquine (PLAQUENIL) 200 mg tablet Take 200 mg by mouth two times a day. fluticasone (FLONASE) 50 mcg/actuation nasal spray Use 2 sprays in each nostril once daily. Rinse mouth after use. iv contrast (will be provided with radiology test) CTA ABD/PEL - No IV access, insert saline lock prior to the sedation, infusion, injection for imaging exam. Discontinue saline lock post exam. If Pt. has a central line or IVAD, may access for administration according to line specific nursing protocol. Once exam is complete flush line and de-access according to line specific nursing protocol in the CT contrast administration guidelines link. predniSONE (DELTASONE) 10 mg tablet Take 10 mg by mouth as needed. No current facility-administered medications for this visit. ALLERGIES: ALLERGIES Allergen Reactions Simvastatin Intolerance myalgias PAST MEDICAL HISTORY Diagnosis Date Aortic stenosis mild BPH associated with nocturia Hyperglycemia Hyperlipidemia Hypertension IMPOTENCE, ORGANIC ORIGN Kidney congenitally absent, right L-S radiculopathy right leg, Stenosis on lumbar MRI Obesity Personal history of colonic polyps PAST SURGICAL HISTORY Procedure Laterality Date APPENDECTOMY COLONOSCOPY 10/05/2018 COLONOSCOPY FLX DX W/COLLJ SPEC WHEN PFRMD 09/05/13 normal colon - prior polyps 5 year follow up COLSC FLX W/RMVL OF TUMOR POLYP LESION SNARE TQ 01/20/2005 COLSC FLX W/RMVL OF TUMOR POLYP LESION SNARE TQ 06/13/10 polyps cecum and 45cm, tubular adenomas RPR 1ST INGUN HRNA AGE 5 YRS/> REDUCIBLE Hernia repair, inguinal bilateral RX RIB FRACTURE W BARREL DRUM CUTTER FIXATN TONSILLECTOMY PRIMARY/SECONDARY Tonsillectomy FAMILY HISTORY Problem Relation Age of Onset Diabetes Father Social History Tobacco Use Smoking status: Never Smokeless tobacco: Never Vaping Use Vaping status: Never Used Substance Use Topics Alcohol use: Not Currently Drug use: Never Reviewed current medications, allergies, past medical history, surgical history, family history and social history today. REVIEW OF SYSTEMS Respiratory: (+) dyspnea on exertion, (+) heat-induced dyspnea Gastrointestinal: (+) diarrhea, (+) excessive flatus, (-) hematochezia Musculoskeletal: (-) groin pain Skin: (-) groin bruising, (-) groin swelling Neurological: (+) dizziness HEALTH MAINTENANCE: Reviewed health maintenance issues today and recommended the following in detail. Shingrix Vaccine(2 of 2) due on 09/09/2023 Medicare Advantage Annual Wellness Visit Never done LAB REVIEWED: Labs [No entries] Tests (12/25) Cardiac Catheterization: Severe calcification of the distal right coronary artery with approximately 90% stenosis; rotational atherec (more content not included)... [facility] 01-10-2025 History of Present illness Narrative Goran Gabriel is a 79-year-old male with a history of CAD, HTN, and dyspnea, presenting for follow-up after recent RCA stent placement. HPI RCA Stent Placement: - Hospitalized at [facility] from 12/25 to 12/26. - Underwent heart catheterization by Dr. Oreilly on 12/25, with RCA stent placement. - Initial attempt on 11/14 was unsuccessful. - RCA was 90% narrowed and severely calcified. - Procedure involved a rotablator; Goran reports feeling warmth and discomfort during the procedure. - Post-procedure, experienced lightheadedness and dizziness for a few days; still occasionally feels dizzy. - No current issues with bruising, pain, or swelling at the catheterization site. - Taking Brilinta, aspirin, atorvastatin, and antihypertensive medications. Dyspnea: - Chronic dyspnea, exacerbated by heat and physical activity. - Previous spirometry on 10/31/2020 showed mild obstruction and possible restriction. - CT negative for fibrosis on recent CTA - Considering the use of an inhaler. Hypertension: - Home blood pressure readings range from 137/82 to 142/82 mmHg. - Blood pressure today was 142/82 mmHg. Diarrhea: - Intermittent diarrhea with significant gas, x2 weeks. - No hematochezia. - Denies recent illness, travel, or antibiotic use. - Last colonoscopy in 2019; family history of colon cancer in son, who is now cancer-free. MEDICATIONS: Current Outpatient Medications Medication Sig fluticasone (FLONASE) 50 mcg/actuation nasal spray Use 1 spray in each nostril once daily. Rinse mouth after use. Aspirin 81 mg tab Take 81 mg by mouth one time only. Pre cath metoprolol succinate ER (TOPROL XL) 25 mg 24 hr tablet Take 2 tablets by mouth once daily. ticagrelor (BRILINTA) 90 mg tablet Take 1 tablet by mouth two times a day. atorvastatin (LIPITOR) 20 mg tablet Take 1 tablet by mouth once daily. losartan (COZAAR) 100 mg tablet Take 1 tablet by mouth once daily. tamsulosin (FLOMAX) 0.4 mg Take 1 capsule by mouth daily at bedtime. hydroCHLOROthiazide 25 mg tablet Take 1 tablet by mouth once daily. hydroxychloroquine (PLAQUENIL) 200 mg tablet Take 200 mg by mouth two times a day. fluticasone (FLONASE) 50 mcg/actuation nasal spray Use 2 sprays in each nostril once daily. Rinse mouth after use. iv contrast (will be provided with radiology test) CTA ABD/PEL - No IV access, insert saline lock prior to the sedation, infusion, injection for imaging exam. Discontinue saline lock post exam. If Pt. has a central line or IVAD, may access for administration according to line specific nursing protocol. Once exam is complete flush line and de-access according to line specific nursing protocol in the CT contrast administration guidelines link. predniSONE (DELTASONE) 10 mg tablet Take 10 mg by mouth as needed. No current facility-administered medications for this visit. ALLERGIES: ALLERGIES Allergen Reactions Simvastatin Intolerance myalgias PAST MEDICAL HISTORY Diagnosis Date Aortic stenosis mild BPH associated with nocturia Hyperglycemia Hyperlipidemia Hypertension IMPOTENCE, ORGANIC ORIGN Kidney congenitally absent, right L-S radiculopathy right leg, Stenosis on lumbar MRI Obesity Personal history of colonic polyps PAST SURGICAL HISTORY Procedure Laterality Date APPENDECTOMY COLONOSCOPY 10/05/2018 COLONOSCOPY FLX DX W/COLLJ SPEC WHEN PFRMD 09/05/13 normal colon - prior polyps 5 year follow up COLSC FLX W/RMVL OF TUMOR POLYP LESION SNARE TQ 01/20/2005 COLSC FLX W/RMVL OF TUMOR POLYP LESION SNARE TQ 06/13/10 polyps cecum and 45cm, tubular adenomas RPR 1ST INGUN HRNA AGE 5 YRS/> REDUCIBLE Hernia repair, inguinal bilateral RX RIB FRACTURE W BARREL DRUM CUTTER FIXATN TONSILLECTOMY PRIMARY/SECONDARY <AGE 12 Tonsillectomy FAMILY HISTORY Problem Relation Age of Onset Diabetes Father Social History Tobacco Use Smoking status: Never Smokeless tobacco: Never Vaping Use Vaping status: Never Used Substance Use Topics Alcohol use: Not Currently Drug use: Never Reviewed current medications, allergies, past medical history, surgical history, family history and social history today. REVIEW OF SYSTEMS Respiratory: (+) dyspnea on exertion, (+) heat-induced dyspnea Gastrointestinal: (+) diarrhea, (+) excessive flatus, (-) hematochezia Musculoskeletal: (-) groin pain Skin: (-) groin bruising, (-) groin swelling Neurological: (+) dizziness HEALTH MAINTENANCE: Reviewed health maintenance issues today and recommended the following in detail. Shingrix Vaccine(2 of 2) due on 09/09/2023 Medicare Advantage Annual Wellness Visit Never done LAB REVIEWED: Labs [No entries] Tests (12/25) Cardiac Catheterization: Severe calcification of the distal right coronary artery with approximately 90% stenosis; rotational atherectomy performed followed by stent placement. (11/14) Cardiac Catheterization: Distal right coronary artery with 90% narrowing and severe calcification. (10/31/2020) Spirometry: Mild obstructive pattern with possible mild restriction. Imaging (11/15) CTA Chest: No scarring or fibrosis identified; no definitive abnormalities. VITALS: BP 142/82 Pulse 82 Wt 103.9 kg (229 lb) SpO2 96% BMI 35.87 kg/m Last 4 Encounter Wt Readings: Date: Wt: 01/10/2025 103.9 kg (229 lb) 12/18/2024 104.8 kg (231 lb) 12/12/2024 104.8 kg (231 lb) 11/16/2024 108 kg (238 lb 1.6 oz) PHYSICAL EXAMINATION: GENERAL: NAD, alert and oriented. SKIN: Unremarkable, no rash or skin lesions. NECK: Supple, no lymphadenopathy, normal thyroid, no carotid bruits. LUNGS: Clear to auscultation bilaterally, no wheezes/rhonchi/rales. HEART: Regular rate and rhythm, no ectopy. Murmur noted, unchanged. EXTREMITIES: No deformities, no skin discoloration, no edema. Varicose veins noted, more prominent on the left side. NEURO: Awake, alert and oriented x3, cranial nerves II-XII grossly intact, normal gait, no involuntary motions. ASSESSMENT AND PLAN 1. S/P angioplasty with stent (Z95.820) - Underwent RCA stenting on 12/[address] Oreilly due to severe diffuse disease and 90% stenosis of the distal RCA. - Currently on Brilinta, aspirin, and atorvastatin; previous antihypertensive medications continued. - No current chest discomfort or dyspnea related to the procedure. - Follow-up with cardiology scheduled for March. 2. Hyperlipidemia, unspecified hyperlipidemia type (E78.5) - Continue atorvastatin therapy. 3. Essential hypertension, benign (I10) - Blood pressure readings: 142/82 mmHg today and similar readings at home. - Advised to monitor BP at home; aim for readings below 140/90 mmHg. - Scheduled follow-up for blood pressure check in 4 weeks. - Advised to reduce sodium intake and maintain physical activity. 4. Aortic valve stenosis, etiology of cardiac valve disease unspecified (I35.0) - Cardiac murmur unchanged on auscultation. - Continue monitoring. 5. Prediabetes (R73.03) - No specific management changes discussed. 6. SOB (shortness of breath) (R06.02) - Dyspnea noted, particularly in hot weather and during physical activity. - Previous spirometry on 10/31/2020 showed mild obstruction and possible restriction. - Ordered repeat PFTs with spirometry and lung volumes to reassess pulmonary function. 7. Screening for colon cancer (Z12.11) - Intermittent diarrhea and excessive gas over the past few weeks; no hematochezia. - Previous colonoscopy in 2019; next colonoscopy deferred due to current Brilinta therapy. - Ordered Cologuard test for interim screening. - Advised to increase dietary fiber and fluid intake. - Monitor for worsening symptoms or additional gastrointestinal issues. (See patient after visit summary for additional instructions to patient) Miguelangel Courtney MD Recording using ambient [employer] software for draft documentation of the visit was discussed with the patient/authorized credit representative; all questions welcomed and answered. Patient/authorized credit representative agreed to proceed documented in this encounter [facility] 01-10-2025 Instructions Miguelangel Courtney MD - 01/10/2025 9:02 AM EDT - Continue taking Brilinta, aspirin, atorvastatin, and your current blood pressure medicines as prescribed. - Schedule and complete spirometry and lung volume testing to evaluate your breathing; call the office to arrange these tests. - Use the Cologuard at-home stool test for colon screening: watch for the kit arriving by mail, follow the instructions, and return it via UPS. - Monitor your bowel symptoms (gas and occasional diarrhea); contact us if these continue or worsen. - Track your blood pressure at home; if readings stay above 140/90 mmHg, let us know. - Return in about 4 weeks for a blood pressure check with Loraine or Uzma. - Follow up in March for routine review of your heart and overall health. - Reduce your salt intake, stay active, and ensure adequate fluids and fiber to support both blood pressure control and bowel health. documented in this encounter [facility] 01-04-2025 Telephone encounter Note Pt reports he had a stent placed in his heart on 12/29/24 and thought he was having elevated BP's but does not remember the readings and did not write them down. Today readings are normal. Protocol recommends home care. Pt scheduled appt with pcp to discuss BP and to discuss new medication: brilinta. Reports having occassional mild dizziness that doesn't last long and wonders if it is related to the new medication. Scheduled appt with pcp. Reason for Disposition [1] Systolic BP < 130 with Diastolic < 80 AND [2] taking BP medications Answer Assessment - Initial Assessment Questions 1. BLOOD PRESSURE: Pt reports he is concerned about elevated BP since his surgery on 12/29/24. Pt doesn't have his readings right now and cannot remember what they were. Pt checked his BP while on phone at 11:05 am 121/69 (84). BP at 11:11 am: 117/63 (84). Yesterday: at DDM BP was 137/90 (89). 2. ONSET: See above. 3. HOW: Automatic home BP monitor- wraps around his arm. 4. HISTORY: Hx HTN. Had surgery on 12/29/24 had stent put in heart- had blockage in one of the arteries. Has f/u appt with Dr. Oreilly on 01/23/25. 5. MEDICINES: Taking losartan, metoprolol, hctz, flomax, and a new blood thinner: brilinta. Has not had any missed doses. 6. OTHER SYMPTOMS: No CP. No Shortness of Breath. No edema in legs or ankles. Occassional dizziness which is new. Reports he is getting enough fluids- no low BP readings. No low BS's - reports he eating healthy. No weakness. No headaches. 7. : N/A Protocols used: Blood Pressure - [id number]-MS [facility] 01-04-2025 Miscellaneous Notes Pt reports he had a stent placed in his heart on 12/29/24 and thought he was having elevated BP's but does not remember the readings and did not write them down. Today readings are normal. Protocol recommends home care. Pt scheduled appt with pcp to discuss BP and to discuss new medication: brilinta. Reports having occassional mild dizziness that doesn't last long and wonders if it is related to the new medication. Scheduled appt with pcp. Reason for Disposition [1] Systolic BP < 130 with Diastolic < 80 AND [2] taking BP medications Answer Assessment - Initial Assessment Questions 1. BLOOD PRESSURE: Pt reports he is concerned about elevated BP since his surgery on 12/29/24. Pt doesn't have his readings right now and cannot remember what they were. Pt checked his BP while on phone at 11:05 am 121/69 (84). BP at 11:11 am: 117/63 (84). Yesterday: at DDM BP was 137/90 (89). 2. ONSET: See above. 3. HOW: Automatic home BP monitor- wraps around his arm. 4. HISTORY: Hx HTN. Had surgery on 12/29/24 had stent put in heart- had blockage in one of the arteries. Has f/u appt with Dr. Oreilly on 01/23/25. 5. MEDICINES: Taking losartan, metoprolol, hctz, flomax, and a new blood thinner: brilinta. Has not had any missed doses. 6. OTHER SYMPTOMS: No CP. No Shortness of Breath. No edema in legs or ankles. Occassional dizziness which is new. Reports he is getting enough fluids- no low BP readings. No low BS's - reports he eating healthy. No weakness. No headaches. 7. : N/A Protocols used: Blood Pressure - [id number] documented in this encounter [facility] 12-26-2024 Telephone encounter Note Called patient regarding cardiac rehab. Patient wants to think about signing up for classes. Patient has my phone number to call if interested. [facility] 12-26-2024 Miscellaneous Notes Called patient regarding cardiac rehab. Patient wants to think about signing up for classes. Patient has my phone number to call if interested. documented in this encounter [facility] 12-26-2024 Note HNO ID: [id number] Author: WILMAN BRYANT LSW Service: Care Management Author Type: Shuttle Bus Driver Type: Care Mgt Progress Note Filed: 12/26/2024 12:04 Note Text: CARE MANAGEMENT PROGRESS NOTE SERVICE DATE: December 26, 2024 SERVICE TIME: 10:00 AM Intimate Partner Violence We have begun to talk to patients about safe and healthy relationships because it can have a large impact on your health. Do you feel safe around your partner or ex-partner?: Yes Food Insecurity Within the past 12 months, you worried that your food would run out before you got the money to buy more.: Never true Within the past 12 months, the food you bought just didn't last and you didn't have money to get more.: Never true Transportation Needs In the past 12 months, has lack of transportation kept you from medical appointments or from getting medications?: No In the past 12 months, has lack of transportation kept you from meetings, work, or from getting things needed for daily living?: No Housing Stability In the last 12 months, was there a time when you were not able to pay the mortgage or rent on time?: No In the past 12 months, how many times have you moved where you were living?: 1 At any time in the past 12 months, were you homeless or living in a halfway (including now)?: No Utilities In the past 12 months has the [employer], gas, oil, or water [employer] threatened to shut off services in your home?: No The patient came in for an elective heart catheterization and reports he is doing good now. The patient reports he drives and is independent at home. The patient reports he has no DME and lives in house with no steps. The patient reports his spouse will get home at discharge. The patient has PCP, RX coverage and denies any current needs. This patient has been screened for Care Management Transitional Planning Services. At this time, it does not appear this patient will require transition planning services. Should this change, and the patient require transition/discharge planning services during this admission, please call [phone]. SIGNATURE: ANTHONY Fermin PATIENT NAME: Goran Gabriel DATE: December 26, 2024 TIME: 12:01 PM [facility] 12-25-2024 Note HNO ID: [id number] Author: CHEMA OREILLY MD Service: Cardiovascular Surgery Author Type: Physician Type: Procedures Filed: 12/25/2024 10:20 Note Text: LEFT HEART CATHETERIZATION PROCEDURE NOTE Surgery/Procedure Date: 12/25/2024 Referring Physician: Clinical History: This is a 79 year old male with Severe RCA calcified lesion for rotablator PTCA RCA. Consent: Informed consent was obtained after the risks, benefits, and alternatives to and of this procedure were discussed in detail with the patient. Procedure in Detail: The patient was brought to the cardiac catheterization laboratory, prepped and draped in the usual sterile fashion. Anxiolysis was achieved with intravenous and intravenous benadryl. Local anesthesia was achieved over the groin with 1% lidocaine. A pre-flushed 6-Liber[place] sheath was inserted into the femoral artery via the Seldinger technique without complications. Retrograde percutaneous diagnostic coronary angiography and left ventriculography were performed using a Charlie left 4 catheter, a 3-D RC catheter, and an angled pigtail catheter. There were no complications of the procedure. Findings: PTCA Angiography: RIGHT CORONARY ARTERY: Dominant with severe calcified Distal RCA lesion 90% LEFT VENTRICULOGRAPHY: not done. PTCA: Temp Pacer. Rotablator 1.5 4 x Rotablation GABRIEL 3.5 x 48 mm Post Dilated with 4 mm NC Good result No complication . At this point, the procedure was terminated. All diagnostic wires and catheters were removed. Recommendations: 1. Daily aspirin indefinitely 2. Daily Brilinta. 3. Statin use 4. Secondary cardiac prevention measures. SIGNATURE: Chema Oreilly MD PATIENT NAME: Goran Gabriel DATE: December 25, 2024 TIME: 10:14 AM [facility] 12-21-2024 Telephone encounter Note Spoke with patient about test results. Patient verbalizes understanding. Lisa Jones LPN [facility] 12-21-2024 Miscellaneous Notes Spoke with patient about test results. Patient verbalizes understanding. Lisa Jones LPN ----- Message from Savannah Ogden APRN.TRAIN ANNOUNCER sent at 12/21/2024 11:27 AM EDT ----- Please call patient and notify him of lab results. Normal kidney function stable blood count for upcoming heart catheterization. Thank you Please call patient and notify him of lab results. Normal kidney function stable blood count for upcoming heart catheterization. Thank you documented in this encounter [facility] 12-21-2024 Telephone encounter Note ----- Message from Savannah Ogden APRN.CNP sent at 12/21/2024 11:27 AM EDT ----- Please call patient and notify him of lab results. Normal kidney function stable blood count for upcoming heart catheterization. Thank you [facility] 12-21-2024 Progress note Formatting of t his note might be different from the original. Please call patient and notify him of lab results. Normal kidney function stable blood count for upcoming heart catheterization. Thank you [facility] Work Phone: 12-19-2024 Telephone encounter Note Patient reviewed test results on [employer]. Madison Wills MA December 19, 2024 12:04 PM [facility] 12-19-2024 Telephone encounter Note ----- Message from Willow Marcelo sent at 12/19/2024 9:00 AM EDT ----- No COVID infection. Good news. [facility] 12-19-2024 Miscellaneous Notes Patient reviewed test results on [employer]. Madison Wills MA December 19, 2024 12:04 PM ----- Message from Willow Marcelo sent at 12/19/2024 9:00 AM EDT ----- No COVID infection. Good news. No COVID infection. Good news. documented in this encounter [facility] 12-19-2024 Progress note Formatting of t his note might be different from the original. No COVID infection. Good news. [facility] 12-18-2024 Note SARS-COV-2 (AGENT OF COVID-19) RNA: Not detected INFLUENZA A RNA: Not detected INFLUENZA B RNA: Not detected RESPIRATORY SYNCYTIAL VIRUS (RSV) RNA: Not detected [facility] Comment on above: Performed By: #### [id number] ####[facility] LABCLIA [id number] [address] [place] 12-18-2024 Instructions Willow Marcelo APRN.CNP - 12/18/2024 1:39 PM EDT - Use your Flonase nasal spray each night at bedtime to help keep your nasal passages clear and reduce mucus buildup. Use plain saline nasal spray throughout the rest of the day frequently. RX sent for 30 days to [facility] and 90 days to [facility] - Covid swab today - Hold off on getting your COVID booster until after you ve recovered, so your body can mount the best antibody response. - Keep track of your symptoms--if you develop a fever, worsen significantly, or have trouble breathing, contact the office right away. - Attend your heart catheterization appointment next Wednesday as scheduled; follow any prep instructions provided by your cardiology team. - See Dr. Courtney in March as scheduled documented in this encounter [facility] 12-18-2024 Note HNO ID: [id number] Author: WILLOW MARCELO APRN.KATELYNN Service: ? Author Type: Nurse Practitioner Type: Progress Notes Filed: 12/18/2024 13:39 Note Text: This is a 79 year old male who presents today with: Patient presents with: URI: Cough and sinus congestion for 2 weeks HISTORY OF PRESENT ILLNESS: Goran Gabriel is a 79 year old male. Patient presents with: URI: Cough and sinus congestion for 2 weeks Goran Gabriel is a 79-year-old male with a history of heart murmur, presenting with URI symptoms. Upper Respiratory Infection Symptoms: - Onset: Approximately two weeks ago. - Symptoms: - Sinus pressure, especially at night. - Nasal congestion, requiring nasal spray use. - Chest congestion. - Occasional diarrhea. - Fatigue and body aches. - Denies headache, sore throat, fever, or pain/pressure when swallowing. - Using cough syrup with minimal relief. Heart Murmur: - Scheduled for heart catheterization next Wednesday. - Previous catheterization on November 14 was unsuccessful due to calcium buildup. PAST MEDICAL HISTORY: PAST MEDICAL HISTORY Diagnosis Date Aortic stenosis mild BPH associated with nocturia Hyperglycemia Hyperlipidemia Hypertension IMPOTENCE, ORGANIC ORIGN Kidney congenitally absent, right L-S radiculopathy right leg, Stenosis on lumbar MRI Obesity Personal history of colonic polyps PAST SURGICAL HISTORY Procedure Laterality Date APPENDECTOMY COLONOSCOPY 10/05/2018 COLONOSCOPY FLX DX W/COLLJ SPEC WHEN PFRMD 09/05/13 normal colon - prior polyps 5 year follow up COLSC FLX W/RMVL OF TUMOR POLYP LESION SNARE TQ 01/20/2005 COLSC FLX W/RMVL OF TUMOR POLYP LESION SNARE TQ 06/13/10 polyps cecum and 45cm, tubular adenomas RPR 1ST INGUN HRNA AGE 5 YRS/> REDUCIBLE Hernia repair, inguinal bilateral RX RIB FRACTURE W BARREL DRUM CUTTER FIXATN TONSILLECTOMY PRIMARY/SECONDARY Tonsillectomy ALLERGIES Simvastatin MEDICATIONS Current Outpatient Medications Medication Sig Aspirin 81 mg tab Take 81 mg by mouth one time only. Pre cath metoprolol succinate ER (TOPROL XL) 25 mg 24 hr tablet Take 2 tablets by mouth once daily. ticagrelor (BRILINTA) 90 mg tablet Take 1 tablet by mouth two times a day. iv contrast (will be provided with radiology test) CTA ABD/PEL - No IV access, insert saline lock prior to the sedation, infusion, injection for imaging exam. Discontinue saline lock post exam. If Pt. has a central line or IVAD, may access for administration according to line specific nursing protocol. Once exam is complete flush line and de-access according to line specific nursing protocol in the CT contrast administration guidelines link. atorvastatin (LIPITOR) 20 mg tablet Take 1 tablet by mouth once daily. losartan (COZAAR) 100 mg tablet Take 1 tablet by mouth once daily. tamsulosin (FLOMAX) 0.4 mg Take 1 capsule by mouth daily at bedtime. hydroCHLOROthiazide 25 mg tablet Take 1 tablet by mouth once daily. predniSONE (DELTASONE) 10 mg tablet Take 10 mg by mouth as needed. fluticasone (FLONASE) 50 mcg/actuation nasal spray Use 1 [place] in each nostril once daily. Rinse mouth after use. hydroxychloroquine (PLAQUENIL) 200 mg tablet Take 200 mg by mouth once daily. No current facility-administered medications for this visit. FAMILY HISTORY Problem Relation Age of Onset Diabetes Father Social History Tobacco Use Smoking status: Never Smokeless tobacco: Never Vaping Use Vaping status: Never Used Substance Use Topics Alcohol use: Not Currently Drug use: Never REVIEW OF SYSTEMS Constitutional: (+) fatigue, (-) fever Head: (-) headache Ears/Nose/Mouth/Throat: (+) sinus pressure, (+) nasal congestion, (-) sore throat Respiratory: (+) cough, (+) sputum production, (+) chest congestion Gastrointestinal: (+) diarrhea Musculoskeletal: (+) myalgias EXAM: BP 128/66 Pulse 78 Temp 36.9 ?C (98.4 ?F) (Right Tympanic) Wt 104.8 kg (231 lb) SpO2 96% BMI 36.18 kg/m? PHYSICAL EXAM: GENERAL: NAD, alert and oriented SKIN: unremarkable, no rash or skin lesions. HEAD: normocephalic EARS: external ears normal, canals clear, TM's normal, left TM bulging. NOSE/SINUSES: Nares normal. Septum midline. Left side of nose inflamed and red OROPHARYNX: lips, mucosa, and tongue normal, good dentition. No oral lesions noted. Oral mucosa dry. NECK: Supple, no lymphadenopathy, normal thyroid, no carotid bruits. LUNGS: Clear to auscultation bilaterally, no wheezes/rhonchi/rales. HEART: Regular rate and rhythm, COLIN at sternal border. No ectopy. EXTREMITIES: Normal, No deformities, No skin discoloration, No edema. NEURO: Awake, alert and oriented x3, cranial nerves II-XII grossly intact, normal gait, no involuntary motions LABS: ASSESSMENT/PLAN: 1. Rhinorrhea (J34.89) 2. URI, acute (J06.9) - Symptoms include sinus pressure, nasal congestion, chest congestion, and fatigue; no headache or sore throat reported. - Physical exam reveals a bu (more content not included)... [facility] 12-18-2024 History of Present illness Narrative This is a 79 year old male who presents today with: Patient presents with: URI: Cough and sinus congestion for 2 weeks HISTORY OF PRESENT ILLNESS: Goran Gabriel is a 79 year old male. Patient presents with: URI: Cough and sinus congestion for 2 weeks Goran Gabriel is a 79-year-old male with a history of heart murmur, presenting with URI symptoms. Upper Respiratory Infection Symptoms: - Onset: Approximately two weeks ago. - Symptoms: - Sinus pressure, especially at night. - Nasal congestion, requiring nasal spray use. - Chest congestion. - Occasional diarrhea. - Fatigue and body aches. - Denies headache, sore throat, fever, or pain/pressure when swallowing. - Using cough syrup with minimal relief. Heart Murmur: - Scheduled for heart catheterization next Wednesday. - Previous catheterization on November 14 was unsuccessful due to calcium buildup. PAST MEDICAL HISTORY: PAST MEDICAL HISTORY Diagnosis Date Aortic stenosis mild BPH associated with nocturia Hyperglycemia Hyperlipidemia Hypertension IMPOTENCE, ORGANIC ORIGN Kidney congenitally absent, right L-S radiculopathy right leg, Stenosis on lumbar MRI Obesity Personal history of colonic polyps PAST SURGICAL HISTORY Procedure Laterality Date APPENDECTOMY COLONOSCOPY 10/05/2018 COLONOSCOPY FLX DX W/COLLJ SPEC WHEN PFRMD 09/05/13 normal colon - prior polyps 5 year follow up COLSC FLX W/RMVL OF TUMOR POLYP LESION SNARE TQ 01/20/2005 COLSC FLX W/RMVL OF TUMOR POLYP LESION SNARE TQ 06/13/10 polyps cecum and 45cm, tubular adenomas RPR 1ST INGUN HRNA AGE 5 YRS/> REDUCIBLE Hernia repair, inguinal bilateral RX RIB FRACTURE W BARREL DRUM CUTTER FIXATN TONSILLECTOMY PRIMARY/SECONDARY <AGE 12 Tonsillectomy ALLERGIES Simvastatin MEDICATIONS Current Outpatient Medications Medication Sig Aspirin 81 mg tab Take 81 mg by mouth one time only. Pre cath metoprolol succinate ER (TOPROL XL) 25 mg 24 hr tablet Take 2 tablets by mouth once daily. ticagrelor (BRILINTA) 90 mg tablet Take 1 tablet by mouth two times a day. iv contrast (will be provided with radiology test) CTA ABD/PEL - No IV access, insert saline lock prior to the sedation, infusion, injection for imaging exam. Discontinue saline lock post exam. If Pt. has a central line or IVAD, may access for administration according to line specific nursing protocol. Once exam is complete flush line and de-access according to line specific nursing protocol in the CT contrast administration guidelines link. atorvastatin (LIPITOR) 20 mg tablet Take 1 tablet by mouth once daily. losartan (COZAAR) 100 mg tablet Take 1 tablet by mouth once daily. tamsulosin (FLOMAX) 0.4 mg Take 1 capsule by mouth daily at bedtime. hydroCHLOROthiazide 25 mg tablet Take 1 tablet by mouth once daily. predniSONE (DELTASONE) 10 mg tablet Take 10 mg by mouth as needed. fluticasone (FLONASE) 50 mcg/actuation nasal spray Use 1 [place] in each nostril once daily. Rinse mouth after use. hydroxychloroquine (PLAQUENIL) 200 mg tablet Take 200 mg by mouth once daily. No current facility-administered medications for this visit. FAMILY HISTORY Problem Relation Age of Onset Diabetes Father Social History Tobacco Use Smoking status: Never Smokeless tobacco: Never Vaping Use Vaping status: Never Used Substance Use Topics Alcohol use: Not Currently Drug use: Never REVIEW OF SYSTEMS Constitutional: (+) fatigue, (-) fever Head: (-) headache Ears/Nose/Mouth/Throat: (+) sinus pressure, (+) nasal congestion, (-) sore throat Respiratory: (+) cough, (+) sputum production, (+) chest congestion Gastrointestinal: (+) diarrhea Musculoskeletal: (+) myalgias EXAM: BP 128/66 Pulse 78 Temp 36.9 C (98.4 F) (Right Tympanic) Wt 104.8 kg (231 lb) SpO2 96% BMI 36.18 kg/m PHYSICAL EXAM: GENERAL: NAD, alert and oriented SKIN: unremarkable, no rash or skin lesions. HEAD: normocephalic EARS: external ears normal, canals clear, TM's normal, left TM bulging. NOSE/SINUSES: Nares normal. Septum midline. Left side of nose inflamed and red OROPHARYNX: lips, mucosa, and tongue normal, good dentition. No oral lesions noted. Oral mucosa dry. NECK: Supple, no lymphadenopathy, normal thyroid, no carotid bruits. LUNGS: Clear to auscultation bilaterally, no wheezes/rhonchi/rales. HEART: Regular rate and rhythm, COLIN at sternal border. No ectopy. EXTREMITIES: Normal, No deformities, No skin discoloration, No edema. NEURO: Awake, alert and oriented x3, cranial nerves II-XII grossly intact, normal gait, no involuntary motions LABS: ASSESSMENT/PLAN: 1. Rhinorrhea (J34.89) 2. URI, acute (J06.9) - Symptoms include sinus pressure, nasal congestion, chest congestion, and fatigue; no headache or sore throat reported. - Physical exam reveals a bulging tympanic membrane and dry oral mucosa. - Differential diagnosis includes COVID-19 due to symptomatology and current prevalence. - Ordered COVID-19 test. - Advised against receiving COVID-19 booster while symptomatic. - Patient to follow-up with results of COVID-19 test. - Flonase nasal spray and use saline nasal spray frequently throughout the rest of the day Discussed treatment plan and patient voices understanding. Patient's questions answered appropriately. Medications and potential side effects were discussed and patient voices understanding. Return to the office as scheduled or as needed for worsening/no improvement. Willow Marcelo APRN.KATELYNN documented in this encounter [facility] 12-12-2024 Note HNO ID: [id number] Author: STEPHON NEGRON PA-C Service: ? Author Type: Physician Rn Complex Care Type: Progress Notes Filed: 12/13/2024 13:02 Note Text: [facility] PATIENT CLINIC NOTE (M) Some elements copied from his previous note, which have been updated where appropriate, and all reflect current medical decision making from date of this visit. Note was generated by [employer] and edited as appropriate SERVICE DATE: December 13, 2024 NAME: Goran Gabriel GENDER: male CHIEF COMPLAINT: history of elevated PSA levels, presenting for follow-up. HISTORY OF PRESENT ILLNESS: The patient is a 79-year-old male with a history of elevated PSA levels, presenting for follow-up. Elevated PSA Levels: - Recent PSA level decreased from 0.86 to 0.66. - Last PSA test was 2 years ago. - CT scan showed a potential nodule on the left posterior side of the prostate. - Underwent cystoscopy at [facility], which revealed no abnormalities. - Denies having a prostate biopsy. - Continues to take Flomax and Cialis 5 mg. - Reports frequent nocturia. - Denies difficulty emptying the bladder. - Follow-up appointment with Dr. Saleh on . - Follow-up with Dr. Cerrato in nephrology. LABS: PSA (ng/mL) Date Value 12/08/2024 0.43 05/25/2024 0.66 05/19/2023 0.86 02/14/2020 0.85 02/17/2019 0.96 MEDICATIONS: Aspirin 81 mg tab Take 81 mg by mouth one time only. Pre cath metoprolol succinate ER (TOPROL XL) 25 mg 24 hr tablet Take 2 tablets by mouth once daily. ticagrelor (BRILINTA) 90 mg tablet Take 1 tablet by mouth two times a day. atorvastatin (LIPITOR) 20 mg tablet Take 1 tablet by mouth once daily. losartan (COZAAR) 100 mg tablet Take 1 tablet by mouth once daily. tamsulosin (FLOMAX) 0.4 mg Take 1 capsule by mouth daily at bedtime. hydroCHLOROthiazide 25 mg tablet Take 1 tablet by mouth once daily. predniSONE (DELTASONE) 10 mg tablet Take 10 mg by mouth as needed. fluticasone (FLONASE) 50 mcg/actuation nasal spray Use 1 [place] in each nostril once daily. Rinse mouth after use. hydroxychloroquine (PLAQUENIL) 200 mg tablet Take 200 mg by mouth once daily. iv contrast (will be provided with radiology test) CTA ABD/PEL - No IV access, insert saline lock prior to the sedation, infusion, injection for imaging exam. Discontinue saline lock post exam. If Pt. has a central line or IVAD, may access for administration according to line specific nursing protocol. Once exam is complete flush line and de-access according to line specific nursing protocol in the CT contrast administration guidelines link. PAST MEDICAL HISTORY: PAST MEDICAL HISTORY Diagnosis Date Aortic stenosis mild BPH associated with nocturia Hyperglycemia Hyperlipidemia Hypertension IMPOTENCE, ORGANIC ORIGN Kidney congenitally absent, right L-S radiculopathy right leg, Stenosis on lumbar MRI Obesity Personal history of colonic polyps REVIEW OF SYSTEMS: Genitourinary: (+) nocturia, (+) urinary frequency, (-) urinary retention PHYSICAL EXAMINATION: Physical Exam: General: Alert AND oriented, no acute distress Skin: Normal HEENT: Pupils equal, round. Oral cavity, oropharynx clear Neck: Supple, no mass Breast: Deferred Respiratory: Clear to auscultation, bilaterally Cardiovascular: Regular rate and rhythm, no murmurs, rubs, or gallops Abdomen: Soft, non-tender, non-distended, no masses palpable, no hepatosplenomegaly, normal bowel sounds Genitourinary: Deferred MSK: Back is non-tender Extremities: No clubbing, cyanosis, or edema PROBLEM LIST REVIEW: Yes LABS: Results for orders placed or performed in visit on 12/12/24 UA DIP, URINE (POC) Result Value Ref Range GLUCOSE UA (POCT) Negative Negative mg/dL BILIRUBIN UA (POCT) Negative Negative KETONE UA (POCT) Negative Negative mg/dL SPECIFIC GRAVITY UA (POCT) 1.020 1.005 - 1.030 HEMOGLOBIN/BLOOD UA (POCT) Negative Negative PH UA (POCT) 7.0 4.5 - 8.0 PROTEIN UA (POCT) Negative Negative mg/dL UROBILINOGEN UA (POCT) 0.2 Normal E.U./dL NITRITE UA (POCT) Negative Negative LEUKOCYTES UA (POCT) Negative Negative COLOR UA (POCT) Yellow CLARITY UA (POCT) Clear PROCEDURES: PVR - 52 ml ASSESSMENT/PLAN: 1. Abnormal CT of the abdomen (R93.5) 2. Prostate nodule (N40.2) - CT scan showed a potential nodule on the left posterior side of the prostate, which could also be part of the seminal vesicle. No biopsy performed. PSA levels decreased from 0.86 to 0.66 over the past year, indicating no significant concern. Continue monitoring PSA levels annually. 3. Screening for genitourinary condition (Z13.89) - Urinalysis today was normal. Continue annual PSA screening. 4. Benign prostatic hyperplasia with lower urinary tract symptoms, symptom details unspecified (N40.1) - Managed with Flomax and Cialis 5 mg. Patient reports effective bladder emptyi (more content not included)... [facility] 12-12-2024 History of Present illness Narrative Images from the original note were not included. [facility] PATIENT CLINIC NOTE (M) Some elements copied from his previous note, which have been updated where appropriate, and all reflect current medical decision making from date of this visit. Note was generated by [employer] and edited as appropriate SERVICE DATE: December 13, 2024 NAME: Goran Gabriel GENDER: male CHIEF COMPLAINT: history of elevated PSA levels, presenting for follow-up. HISTORY OF PRESENT ILLNESS: The patient is a 79-year-old male with a history of elevated PSA levels, presenting for follow-up. Elevated PSA Levels: - Recent PSA level decreased from 0.86 to 0.66. - Last PSA test was 2 years ago. - CT scan showed a potential nodule on the left posterior side of the prostate. - Underwent cystoscopy at [facility], which revealed no abnormalities. - Denies having a prostate biopsy. - Continues to take Flomax and Cialis 5 mg. - Reports frequent nocturia. - Denies difficulty emptying the bladder. - Follow-up appointment with Dr. Saleh on . - Follow-up with Dr. Cerrato in nephrology. LABS: PSA (ng/mL) Date Value 12/08/2024 0.43 05/25/2024 0.66 05/19/2023 0.86 02/14/2020 0.85 02/17/2019 0.96 MEDICATIONS: Aspirin 81 mg tab Take 81 mg by mouth one time only. Pre cath metoprolol succinate ER (TOPROL XL) 25 mg 24 hr tablet Take 2 tablets by mouth once daily. ticagrelor (BRILINTA) 90 mg tablet Take 1 tablet by mouth two times a day. atorvastatin (LIPITOR) 20 mg tablet Take 1 tablet by mouth once daily. losartan (COZAAR) 100 mg tablet Take 1 tablet by mouth once daily. tamsulosin (FLOMAX) 0.4 mg Take 1 capsule by mouth daily at bedtime. hydroCHLOROthiazide 25 mg tablet Take 1 tablet by mouth once daily. predniSONE (DELTASONE) 10 mg tablet Take 10 mg by mouth as needed. fluticasone (FLONASE) 50 mcg/actuation nasal spray Use 1 [place] in each nostril once daily. Rinse mouth after use. hydroxychloroquine (PLAQUENIL) 200 mg tablet Take 200 mg by mouth once daily. iv contrast (will be provided with radiology test) CTA ABD/PEL - No IV access, insert saline lock prior to the sedation, infusion, injection for imaging exam. Discontinue saline lock post exam. If Pt. has a central line or IVAD, may access for administration according to line specific nursing protocol. Once exam is complete flush line and de-access according to line specific nursing protocol in the CT contrast administration guidelines link. PAST MEDICAL HISTORY: PAST MEDICAL HISTORY Diagnosis Date Aortic stenosis mild BPH associated with nocturia Hyperglycemia Hyperlipidemia Hypertension IMPOTENCE, ORGANIC ORIGN Kidney congenitally absent, right L-S radiculopathy right leg, Stenosis on lumbar MRI Obesity Personal history of colonic polyps REVIEW OF SYSTEMS: Genitourinary: (+) nocturia, (+) urinary frequency, (-) urinary retention PHYSICAL EXAMINATION: Physical Exam: General: Alert & oriented, no acute distress Skin: Normal HEENT: Pupils equal, round. Oral cavity, oropharynx clear Neck: Supple, no mass Breast: Deferred Respiratory: Clear to auscultation, bilaterally Cardiovascular: Regular rate and rhythm, no murmurs, rubs, or gallops Abdomen: Soft, non-tender, non-distended, no masses palpable, no hepatosplenomegaly, normal bowel sounds Genitourinary: Deferred MSK: Back is non-tender Extremities: No clubbing, cyanosis, or edema PROBLEM LIST REVIEW: Yes LABS: Results for orders placed or performed in visit on 12/12/24 UA DIP, URINE (POC) Result Value Ref Range GLUCOSE UA (POCT) Negative Negative mg/dL BILIRUBIN UA (POCT) Negative Negative KETONE UA (POCT) Negative Negative mg/dL SPECIFIC GRAVITY UA (POCT) 1.020 1.005 - 1.030 HEMOGLOBIN/BLOOD UA (POCT) Negative Negative PH UA (POCT) 7.0 4.5 - 8.0 PROTEIN UA (POCT) Negative Negative mg/dL UROBILINOGEN UA (POCT) 0.2 Normal E.U./dL NITRITE UA (POCT) Negative Negative LEUKOCYTES UA (POCT) Negative Negative COLOR UA (POCT) Yellow CLARITY UA (POCT) Clear PROCEDURES: PVR - 52 ml ASSESSMENT/PLAN: 1. Abnormal CT of the abdomen (R93.5) 2. Prostate nodule (N40.2) - CT scan showed a potential nodule on the left posterior side of the prostate, which could also be part of the seminal vesicle. No biopsy performed. PSA levels decreased from 0.86 to 0.66 over the past year, indicating no significant concern. Continue monitoring PSA levels annually. 3. Screening for genitourinary condition (Z13.89) - Urinalysis today was normal. Continue annual PSA screening. 4. Benign prostatic hyperplasia with lower urinary tract symptoms, symptom details unspecified (N40.1) - Managed with Flomax and Cialis 5 mg. Patient reports effective bladder emptying. Refill for Flomax will be needed in March; will provide a one-year prescription at that time. Chronic stable > Follow-up to be determined by testing ordered today > Will contact patient with the Results & Recommendations once testing is completed Patient Instructions (AVS) - printed for patient - Contact the clinic in March when you need a refill of your Flomax; we will send a one-year prescription at that time. - Schedule a prostate-specific antigen (PSA) blood test in one year to continue monitoring your prostate levels. JOSE A Whelan, RANDA, JOVITA Verified name and date of . CC Post Void Residual HPI: P atient is here now for an appointment with Som Alberts APRN, DNP Procedure: Explained procedure to patient and verbalizes understanding. Performed a PVR. Patient urinated and instructed to empty bladder as much as possible just prior to having PVR done using bladder ultrasound scanner. Results of scan: 52 mL The patient tolerated the procedure well. Plan: Appointment with [facility]. documented in this encounter [facility] 12-12-2024 Note HNO ID: [id number] Author: KAYCE GUILLEN LPN Service: ? Author Type: LICENSED NURSE Type: Progress Notes Filed: 12/13/2024 13:02 Note Text: Verified name and date of . CC Post Void Residual HPI: P atient is here now for an appointment with Som Alberts APRN, DNP Procedure: Explained procedure to patient and verbalizes understanding. Performed a PVR. Patient urinated and instructed to empty bladder as much as possible just prior to having PVR done using bladder ultrasound scanner. Results of scan: 52 mL The patient tolerated the procedure well. Plan: Appointment with Aristeo. [facility] 12-07-2024 Telephone encounter Note Left detailed message informing pt that order for PSA has been filed. Hoping he can have it completed prior to Tues appt. Kimmy Goodwin MA [facility] 12-07-2024 Miscellaneous Notes Left detailed message informing pt that order for PSA has been filed. Hoping he can have it completed prior to Tues appt. Kimmy Goodwin MA Patient calling in stating that he received a call from [facility] suggesting that he have a PSA drawn VALERIE. Patient asking if you would like one done before his appointment on 12/12/24. Milena Beckett RN documented in this encounter [facility] 11-30-2024 Telephone encounter Note Patient calling in stating that he received a call from [facility] suggesting that he have a PSA drawn VALERIE. Patient asking if you would like one done before his appointment on 12/12/24. Milena Beckett RN [facility] 11-24-2024 Telephone encounter Note PATIENT NOTIFIED OF INFORMATION [facility] 11-24-2024 Miscellaneous Notes PATIENT NOTIFIED OF INFORMATION Called and left a voicemail for the Patient to call back and ask for a nurse to receive the providers message. Krystin Lloyd RN Let him know his scans done by cardiology showed a nodule near his prostate. Radiology recommends we check psa and follow up on it. Last psa was just one in May. Lets have him follow up with urology. He sees Setphon Negron Regularly documented in this encounter [facility] 11-23-2024 Telephone encounter Note Voicemail msg left for patient to return call to [facility] to review test results. Office phone number provided. Lisa Jones LPN [facility] 11-23-2024 Miscellaneous Notes Voicemail msg left for patient to return call to [facility] to review test results. Office phone number provided. Lisa Jones LPN ----- Message from Miguelangel Courtney MD sent at 11/23/2024 1:51 PM EDT ----- Thanks. We will take care of it. Bill ----- Message ----- From: Annika Luis APRN.TRAIN ANNOUNCER Sent: 11/23/2024 12:58 PM EDT To: Miguelangel Courtney MD; [facility] Clinical Pool Please let patient know his TAVR scans have been reviewed. Discussed with Dr. Oreilly. NO more work up needed for TAVR procedure at this time since his aortic stenosis is only moderate. He needs to continue with his plans for cardiac cath/ PCI on 12/25/[address] Oreilly, and follow up regularly with Dr. Oreilly. The TAVR scans did mention a 25 mm nodule adjacent to the prostate which should be followed up on with his primary care physician with either bloodwork and/ or exam. Please advise patient to reach out to his PCP in this regard. I will cc Dr. Courtney in on this as well. Thanks! Annika Lusi APRN.TRAIN ANNOUNCER Please let patient know his TAVR scans have been reviewed. Discussed with Dr. Oreilly. NO more work up needed for TAVR procedure at this time since his aortic stenosis is only moderate. He needs to continue with his plans for cardiac cath/ PCI on 12/25/[address] Oreilly, and follow up regularly with Dr. Oreilly. The TAVR scans did mention a 25 mm nodule adjacent to the prostate which should be followed up on with his primary care physician with either bloodwork and/ or exam. Please advise patient to reach out to his PCP in this regard. I will cc Dr. Courtney in on this as well. Thanks! Annika Luis APRN.TRAIN ANNOUNCER documented in this encounter [facility] 11-23-2024 Telephone encounter Note ----- Message from Miguelangel Courtney MD sent at 11/23/2024 1:51 PM EDT ----- Thanks. We will take care of it. Bill ----- Message ----- From: Annika Luis APRN.TRAIN ANNOUNCER Sent: 11/23/2024 12:58 PM EDT To: Miguelangel Courtney MD; [facility] Wiggio [place] Please let patient know his TAVR scans have been reviewed. Discussed with Dr. Oreilly. NO more work up needed for TAVR procedure at this time since his aortic stenosis is only moderate. He needs to continue with his plans for cardiac cath/ PCI on 12/25/[address] Oreilly, and follow up regularly with Dr. Oreilly. The TAVR scans did mention a 25 mm nodule adjacent to the prostate which should be followed up on with his primary care physician with either bloodwork and/ or exam. Please advise patient to reach out to his PCP in this regard. I will cc Dr. Courtney in on this as well. Thanks! Annika Luis APRN.TRAIN ANNOUNCER [facility] 11-23-2024 Telephone encounter Note Called and left a voicemail for the Patient to call back and ask for a nurse to receive the providers message. Krystin Lloyd, SCOTT [facility] 11-23-2024 Telephone encounter Note Let him know his scans done by cardiology showed a nodule near his prostate. Radiology recommends we check psa and follow up on it. Last psa was just one in May. Lets have him follow up with urology. He sees Stephon Negron Regularly [facility] 11-23-2024 Progress note Formatting of t his note might be different from the original. Please let patient know his TAVR scans have been reviewed. Discussed with Dr. Oreilly. NO more work up needed for TAVR procedure at this time since his aortic stenosis is only moderate. He needs to continue with his plans for cardiac cath/ PCI on 12/25/[address] Oreilly, and follow up regularly with Dr. Oreilly. The TAVR scans did mention a 25 mm nodule adjacent to the prostate which should be followed up on with his primary care physician with either bloodwork and/ or exam. Please advise patient to reach out to his PCP in this regard. I will cc Dr. Courtney in on this as well. Thanks! Annika Luis APRN.TRAIN ANNOUNCER [facility] Work Phone: 11-22-2024 Note HNO ID: [id number] Author: MADISON PERRY RN Service: ? Author Type: Registered Nurse Type: Progress Notes Filed: 11/22/2024 14:53 Note Text: Value Based Care Coordination Chart Review Provider Action / FYI: Graduated from [facility] 04/09/25 PCP Upon review of patient chart, the patient is excluded from Chronic Disease Management Patient is not a candidate for CDM at this time and placed in the following status: Deferred Action taken: No action needed . Madison Perry RN November 22, 2024 2:52 PM [facility] 11-22-2024 History of Present illness Narrative Value Based Care Coordination Chart Review Provider Action / FYI: Graduated from [facility] 04/09/25 PCP Upon review of patient chart, the patient is excluded from Chronic Disease Management Patient is not a candidate for CDM at this time and placed in the following status: Deferred Action taken: No action needed . Madison Perry RN November 22, 2024 2:52 PM documented in this encounter [facility] 11-22-2024 Note Patient Outreach ([facility]) GORAN GABRIEL ([id number]) 1945 M Date Time Provider Department 11/22/24 MADISON PERRY [facility] During your visit today, we recorded the following information about you: Madison Perry RN 11/22/2024 2:53 PM Signed Value Based Care Coordination Chart Review Provider Action / FYI: Graduated from [facility] N[facility] 04/09/25 PCP Upon review of patient chart, the patient is excluded from Chronic Disease Management Patient is not a candidate for CDM at this time and placed in the following status: Deferred Action taken: No action needed . Madison Perry RN November 22, 2024 2:52 PM Allergies As of Date: 11/22/2024 Noted Allergy Reaction SIMVASTATIN 04/23/2016 5 - Intolerance Comments: myalgias Date Reviewed: 11/14/2024 Reviewed by: Jyothi Pang, RT(R) - Fully Assessed Reason for Visit: Care Coordination [1531] Prescriptions as of 11/22/2024 - Aspirin 81 mg tab Take 81 mg by mouth one time only. Pre cath - metoprolol succinate ER (TOPROL XL) 25 mg 24 hr tablet Take 2 tablets by mouth once daily. - ticagrelor (BRILINTA) 90 mg tablet Take 1 tablet by mouth two times a day. - iv contrast (will be provided with radiology test) CTA ABD/PEL - No IV access, insert saline lock prior to the sedation, infusion, injection for imaging exam. Discontinue saline lock post exam. If Pt. has a central line or IVAD, may access for administration according to line specific nursing protocol. Once exam is complete flush line and de-access according to line specific nursing protocol in the CT contrast administration guidelines link. - atorvastatin (LIPITOR) 20 mg tablet Take 1 tablet by mouth once daily. - losartan (COZAAR) 100 mg tablet Take 1 tablet by mouth once daily. - tamsulosin (FLOMAX) 0.4 mg Take 1 capsule by mouth daily at bedtime. - hydroCHLOROthiazide 25 mg tablet Take 1 tablet by mouth once daily. - predniSONE (DELTASONE) 10 mg tablet Take 10 mg by mouth as needed. - fluticasone (FLONASE) 50 mcg/actuation nasal spray Use 1 [place] in each nostril once daily. Rinse mouth after use. - hydroxychloroquine (PLAQUENIL) 200 mg tablet Take 200 mg by mouth once daily. 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] 05/21/2012 L-S radiculopathy [M54.17] 05/21/2012 05/14/2022 Left knee sprain [S83.92XA] 12/09/2012 09/26/2014 Abnormal glucose [R73.09] 02/13/2013 10/30/2020 Sciatica [M54.30] 02/13/2013 10/29/2016 Obesity [E66.9] 02/13/2013 05/14/2022 Lumbar stenosis [M48.061] 09/26/2014 Aortic valve stenosis [I35.0] 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, M19.*02/24/2017 10/30/2020 Left hip pain [M25.552] 02/24/2017 01/16/2019 Cellulitis of right hand [L03.113] 11/28/2018 12/01/2018 Neck pain [M54.2] 11/28/2018 01/16/2019 Acute deep vein thrombosis (DVT) of femoral vei*01/13/2019 10/30/2020 Acute deep vein thrombosis (DVT) of distal end *01/16/2019 02/17/2019 Varicose veins of both legs with edema [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]01/16/2019 Screening for ischemic heart disease [Z13.6] 01/16/2019 05/14/2022 History of cellulitis [Z87.2] 01/16/2019 05/07/2021 Other proteinuria [R80.8] 07/21/2019 Prediabetes [R73.03] 05/07/2021 Inflammatory polyarthritis (HCC) [M06.4] 05/07/2021 Obesity, Class II, BMI 35-39.9 [E66.812] 08/04/2021 Aortic valve disorder [I35.9] 08/04/2021 05/14/2022 Cellulitis of foot [L03.119] 11/11/2022 05/26/2023 Hypertension [I10] 05/26/2023 05/26/2023 Diagnosed: 05/26/2023 Right inguinal pain [R10.31] 05/26/2023 05/26/2023 Diagnosed: 05/26/2023 Encounter Status:Closed by MADISON PERRY on 11/22/24 [facility] 11-16-2024 Telephone encounter Note Goran Gabriel agreeable to date and procedure. You have been scheduled for a Direct Percutaneous Coronary Intervention (PCI) on Wednesday12/25/[address] Oreilly. Instructions: Your arrival time will be between 7-9 am. Irish Moss Bleacher will call you on 12/22/24 between 2-5 pm to notify you of your assigned arrival time. You are to report to the Heart & Vascular Entrance at [facility] at the assigned time. You may have your usual food the day prior to heart cath. Please increase your water intake the day prior to your heart cath. After midnight you should not eat or drink, but you may have sips of water if you are thirsty. With a sip of water on 12/25/24 morning take: Aspirin 81mg, Brilinta, hydrochlorothiazide, losartan, metoprolol Labs to be done by 12/22/24 at [facility] Hospital Locations: [facility], [facility], [facility], [place], etc. Health and Wellness Centers: [place], [place], or [place] Please plan to stay overnight for observation. You must have someone drive you home when you are released from the hospital and you are not to be alone the first evening. Any questions or concerns please contact our office at [phone] (opt #3 Nursing). Dorcas Luevano RN [facility] 11-16-2024 Miscellaneous Notes Goran Gabriel agreeable to date and procedure. You have been scheduled for a Direct Percutaneous Coronary Intervention (PCI) on Wednesday12/25/[address] Oreilly. Instructions: Your arrival time will be between 7-9 am. Irish Moss Bleacher will call you on 12/22/24 between 2-5 pm to notify you of your assigned arrival time. You are to report to the Heart & Vascular Entrance at [facility] at the assigned time. You may have your usual food the day prior to heart cath. Please increase your water intake the day prior to your heart cath. After midnight you should not eat or drink, but you may have sips of water if you are thirsty. With a sip of water on 12/25/24 morning take: Aspirin 81mg, Brilinta, hydrochlorothiazide, losartan, metoprolol Labs to be done by 12/22/24 at [facility] Outpatient [facility] Lab Hospital Locations: [facility], [facility], [place], etc. Health and Wellness Centers: [place], [place], or [place] Please plan to stay overnight for observation. You must have someone drive you home when you are released from the hospital and you are not to be alone the first evening. Any questions or concerns please contact our office at [phone] (opt #3 Nursing). Dorcas Luevano, SCOTT Schedule Direct PCI on 12/25/[address] Oreilly documented in this encounter [facility] 11-16-2024 Telephone encounter Note Schedule Direct PCI on 12/25/[address] Oreilly [facility] 11-15-2024 Telephone encounter Note Spoke with patient and , wantd to hve this done in jul[place] explained we do not have anestheisa and explained the difference between aneshtesia and moderate sedation. [facility] 11-15-2024 Miscellaneous Notes Spoke with patient and , wantd to hve this done in julio explained we do not have anestheisa and explained the difference between aneshtesia and moderate sedation. Patient and spouse called in regarding colonoscopy that is scheduled on 11/23/2024. They thought the procedure was going to be cancelled because the patient needed to have an ECHO, but it still is showing on MyChart. Patient had ECHO completed yesterday and they would like to proceed with colonoscopy on 11/23/2024 as originally planned. Please reach out to Lauren, spouse at [phone]. documented in this encounter [facility] 11-15-2024 Telephone encounter Note Patient and spouse called in regarding colonoscopy that is scheduled on 11/23/2024. They thought the procedure was going to be cancelled because the patient needed to have an ECHO, but it still is showing on MyChart. Patient had ECHO completed yesterday and they would like to proceed with colonoscopy on 11/23/2024 as originally planned. Please reach out to Lauren, spouse at [phone]. [facility] 11-14-2024 Note HNO ID: [id number] Author: CHEMA OREILLY MD Service: Cardiovascular Surgery Author Type: Physician Type: Procedures Filed: 11/14/2024 12:00 Note Text: LEFT HEART CATHETERIZATION PROCEDURE NOTE Surgery/Procedure Date: 11/14/2024 Referring Physician: Clinical History: This is a 79 year old male with exertional shortness of breath with Mild to Moderate Aortic stenosis . Consent: Informed consent was obtained after the risks, benefits, and alternatives to and of this procedure were discussed in detail with the patient. Procedure in Detail: The patient was brought to the cardiac catheterization laboratory, prepped and draped in the usual sterile fashion. Anxiolysis was achieved with intravenous and intravenous benadryl. Local anesthesia was achieved over the groin with 1% lidocaine. A pre-flushed 6-Liberian sheath was inserted into the femoral artery via the Seldinger technique without complications. Retrograde percutaneous diagnostic coronary angiography and left ventriculography were performed using a Charlie left 4 catheter, a 3-D RC catheter, and an angled pigtail catheter. There were no complications of the procedure. Radial access very tortious subclavian. Future intervention from groin Findings: Angiography: LEFT MAIN: Normal . LEFT CIRCUMFLEX: Agueda. LEFT ANTERIOR DESCENDING: Normal . RIGHT CORONARY ARTERY: Dominant severe distal calcified lesion 90% . LEFT VENTRICULOGRAPHY: Normal LV size and function LVEF= 55% . Right heart cath hemodynamic reveal mild pulmonary hypertension PTCA: JR 4 Telescope. Poor support Heavy calcified lesion Will need rotablator Plan PTCA assisted Rotablator At this point, the procedure was terminated. All diagnostic wires and catheters were removed. Impression: Severe Distal calcified lesion RCA. Normal LV size and function . Failed attempt to cross small balloon with poor guide support will need Rotablator assissted PTCA in few weeks. Recommendations: 1. Daily aspirin indefinitely 2. Brilinta. 3. Statin use 4. Secondary cardiac prevention measures. SIGNATURE: Chema Oreilly MD PATIENT NAME: Goran Gabriel DATE: November 14, 2024 TIME: 11:43 AM [facility] 11-14-2024 History of Present illness Narrative Radiology Service Progress Note DATE OF SERVICE: November 14, 2024 TIME: 8:32 AM PATIENT IDENTITY VERIFICATION COMPLETED USING TWO (2) STANDARD IDENTIFIERS: Name and Date of confirmed by patient verbally and Name and Date of confirmed by identification band. FALL SCREENING: Has the patient had 2 falls in the last year or 1 fall with injury or currently using an Ambulatory Assistive Device (Walker, Cane, Wheelchair, Crutches, etc.)? No PATIENT GENDER DATA: Assigned male at PATIENT RELEVANT IMPLANT DATA REVIEWED: Not Applicable PATIENT PRESENTS WITH AN IMPLANTABLE OR ATTACHED TURKEY ROLL MAKER: No ALLERGIES: Reviewed and unchanged CONTRAST ALLERGY: NO. EXAM: CT -CONTRAST INDUCED NEPHROPATHY RISK FACTORS: Not applicable CREATININE: Creatinine Date Value Ref Range Status 10/24/2024 0.99 0.73 - 1.22 mg/dL Final 09/19/2024 0.89 0.73 - 1.22 mg/dL Final 11/16/2023 1.06 0.73 - 1.22 mg/dL Final Estimated Glomerular Filtration Rate Date Value Ref Range Status 10/24/2024 77 >=60 mL/min/1.73m Final Comment: Estimated Glomerular Filtration Rate (eGFR) is calculated using the 2020 CKD-EPI creatinine equation. This equation utilizes serum creatinine, sex, and age as parameters. The creatinine assay has traceable calibration to isotope dilution-mass spectrometry. Refer to KDIGO guidelines for clinical interpretation. In patients with unstable renal function, e.g. those with acute kidney injury, the eGFR may not accurately reflect actual GFR. eGFR- Date Value Ref Range Status 10/24/2020 >60 Final P.O.C.T. RESULTS: N/A November 14, 2024 TREATMENT: N/A PERIPHERAL IV DATA: Ambulatory: A peripheral IV was started in the Left with a Angio cath: 20 gauge. RADIOLOGY DEPARTMENT: CT; Exam(s) Completed: Cardiac SIGNATURE: YANELI Pete) PATIENT NAME: Goran Gabriel DATE: November 14, 2024 TIME: 8:32 AM documented in this encounter [facility] 11-14-2024 Note HNO ID: [id number] Author: JYOTHI PANG RT(R) Service: Radiology Author Type: Technologist Type: Progress Notes Filed: 11/14/2024 08:33 Note Text: Radiology Service Progress Note DATE OF SERVICE: November 14, 2024 TIME: 8:32 AM PATIENT IDENTITY VERIFICATION COMPLETED USING TWO (2) STANDARD IDENTIFIERS: Name and Date of confirmed by patient verbally and Name and Date of confirmed by identification band. FALL SCREENING: Has the patient had 2 falls in the last year or 1 fall with injury or currently using an Ambulatory Assistive Device (Walker, Cane, Wheelchair, Crutches, etc.)? No PATIENT GENDER DATA: Assigned male at PATIENT RELEVANT IMPLANT DATA REVIEWED: Not Applicable PATIENT PRESENTS WITH AN IMPLANTABLE OR ATTACHED TURKEY ROLL MAKER: No ALLERGIES: Reviewed and unchanged CONTRAST ALLERGY: NO. EXAM: CT -CONTRAST INDUCED NEPHROPATHY RISK FACTORS: Not applicable CREATININE: Creatinine Date Value Ref Range Status 10/24/2024 0.99 0.73 - 1.22 mg/dL Final 09/19/2024 0.89 0.73 - 1.22 mg/dL Final 11/16/2023 1.06 0.73 - 1.22 mg/dL Final Estimated Glomerular Filtration Rate Date Value Ref Range Status 10/24/2024 77 >=60 mL/min/1.73m? Final Comment: Estimated Glomerular Filtration Rate (eGFR) is calculated using the 2020 CKD-EPI creatinine equation. This equation utilizes serum creatinine, sex, and age as parameters. The creatinine assay has traceable calibration to isotope dilution-mass spectrometry. Refer to KDIGO guidelines for clinical interpretation. In patients with unstable renal function, e.g. those with acute kidney injury, the eGFR may not accurately reflect actual GFR. eGFR- Date Value Ref Range Status 10/24/2020 >60 Final P.O.C.T. RESULTS: N/A November 14, 2024 TREATMENT: N/A PERIPHERAL IV DATA: Ambulatory: A peripheral IV was started in the Left with a Angio cath: 20 gauge. RADIOLOGY DEPARTMENT: CT; Exam(s) Completed: Cardiac SIGNATURE: RT Juan R(R) PATIENT NAME: Goran Gabriel DATE: November 14, 2024 TIME: 8:32 AM [facility] 11-14-2024 Note HNO ID: [id number] Author: NASIM LEMA RN Service: ? Author Type: Registered Nurse Type: Nursing Progress Note Filed: 11/14/2024 07:30 Note Text: 0730 Patient admitted to POD, pre procedure teaching at bedside, review of medications with patient [facility] 11-09-2024 Telephone encounter Note Cardiac Clearance received from [facility] for Colonoscopy on 11/23/24 Form scanned and placed in Dr. Oreilly's box for review. Chapito Ramirez [facility] 11-09-2024 Miscellaneous Notes Cardiac Clearance received from [facility] for Colonoscopy on 11/23/24 Form scanned and placed in Dr. Oreilly's box for review. Chapito Ramirez documented in this encounter [facility] 11-02-2024 Note HNO ID: [id number] Author: KIRSTEN ETIENNE RN Service: ? Author Type: Registered Nurse Type: Progress Notes Filed: 11/02/2024 16:03 Note Text: CDM Care Path Telephonic Outreach Provider Action/FYI Pt denies symptom changes, concerns or needs BP 110/60 Pt reports 11/14/[address] and heart cath completed at [facility] Provided [facility] phone number again, Patient verbalized understanding. Instructed to contact PCP/Provider for symptom changes, concerns or needs. Patient verbalized understanding. Patient identified by Name and Date of . Discussed care with patient. Program Details Chronic Disease Management Status: Graduated Patient Graduated Effective Dates: 10/04/2024 - 11/02/2024 Responsible Staff: Kirsten Etienne, SCOTT Support and Services: None active Program Goals Targets Target Due Completed Completed By Outcome Comprehensive HTN education provided 01/04/2025 10/19/2024 Kirsten Etienne RN Complete HTN lab care gaps addressed 01/04/2025 10/19/2024 Kirsten Etienne RN Complete/Scheduled General education provided (managing stress, where to go/how to contact, etc.) 11/06/2024 10/04/2024 Kirsten Etienne RN Complete Intake assessments completed: ADLs, Fall Risk, SDOH 11/06/2024 10/04/2024 Kirsten Etienne RN Complete 5/ Annual Medicare Wellness visit addressed 01/04/2025 10/04/2024 Kirsten Etienne RN Complete/Scheduled Biannual PCP visit addressed 01/04/2025 10/04/2024 Kirsten Etienne RN Complete/Scheduled Patient-stated goal addressed (add comment) 01/04/2025 10/04/2024 Kirsten Etienne RN Complete Lose wt Assessments CDM Assessment Medications: Do you have any questions about taking your medications or which medications you should be taking?: No Do you need any medication refills at this time, including any of the medication you might take only when needed?: No Social: It can be normal to feel anxious or down during a time like this. Would you like to talk to a mental health professional about how you have been feeling?: No Symptoms: Are you experiencing any new or worsening symptoms that you need to talk about today?: No ADLs No documentation this encounter Fall Risk No documentation this encounter SDOH No documentation this encounter Interventions No episode Disposition Based on business continuity global director, the following disposition is advised: No action needed Kirsten Etienne RN November 02, 2024 1:30 PM [facility] 11-02-2024 Note Patient Outreach (AM BC) GORAN GABRIEL ([id number]) 1945 Date Time Provider Department 11/02/24 KIRSTEN ETIENNE AMBG During your visit today, we recorded the following information about you: Kirsten Etienne RN 11/02/2024 4:03 PM Signed CDM Care Path Telephonic Outreach Provider Action/FYI Pt denies symptom changes, concerns or needs BP 110/60 Pt reports 11/14/[address] and heart cath completed at [facility] Provided [facility] phone number again, Patient verbalized understanding. Instructed to contact PCP/Provider for symptom changes, concerns or needs. Patient verbalized understanding. Patient identified by Name and Date of . Discussed care with patient. Program Details Chronic Disease Management Status: Graduated Patient Graduated Effective Dates: 10/04/2024 - 11/02/2024 Responsible Staff: Kirsten Etienne RN Support and Services: None active Program Goals Targets Target Due Completed Completed By Outcome Comprehensive HTN education provided 01/04/2025 10/19/2024 Kirsten Etienne RN Complete HTN lab care gaps addressed 01/04/2025 10/19/2024 Kirsten Etienne RN Complete/Scheduled General education provided (managing stress, where to go/how to contact, etc.) 11/06/2024 10/04/2024 Kirsten Etienne RN Complete Intake assessments completed: ADLs, Fall Risk, SDOH 11/06/2024 10/04/2024 Kirsten Etienne RN Complete 5/ Annual Medicare Wellness visit addressed 01/04/2025 10/04/2024 Kirsten Etienne RN Complete/Scheduled Biannual PCP visit addressed 01/04/2025 10/04/2024 Kirsten Etienne RN Complete/Scheduled Patient-stated goal addressed (add comment) 01/04/2025 10/04/2024 Kirsten Etienne RN Complete Lose wt Assessments CDM Assessment Medications: Do you have any questions about taking your medications or which medications you should be taking?: No Do you need any medication refills at this time, including any of the medication you might take only when needed?: No Social: It can be normal to feel anxious or down during a time like this. Would you like to talk to a mental health professional about how you have been feeling?: No Symptoms: Are you experiencing any new or worsening symptoms that you need to talk about today?: No ADLs No documentation this encounter Fall Risk No documentation this encounter SDOH No documentation this encounter Interventions No episode Disposition Based on business continuity global director, the following disposition is advised: No action needed Kirsten Etienne RN November 02, 2024 1:30 PM Allergies As of Date: 11/02/2024 Noted Allergy Reaction SIMVASTATIN 04/23/2016 5 - Intolerance Comments: myalgias Date Reviewed: 10/23/2024 Reviewed by: Karie, Genevieve E, PRODUCTION LINE TECHNICIAN - Fully Assessed Prescriptions as of 11/02/2024 - iv contrast (will be provided with radiology test) CTA ABD/PEL - No IV access, insert saline lock prior to the sedation, infusion, injection for imaging exam. Discontinue saline lock post exam. If Pt. has a central line or IVAD, may access for administration according to line specific nursing protocol. Once exam is complete flush line and de-access according to line specific nursing protocol in the CT contrast administration guidelines link. - atorvastatin (LIPITOR) 20 mg tablet Take 1 tablet by mouth once daily. - amLODIPine (NORVASC) 5 mg tablet Take 1 tablet by mouth once daily. - losartan (COZAAR) 100 mg tablet Take 1 tablet by mouth once daily. - metoprolol succinate ER (TOPROL XL) 25 mg 24 hr tablet Take 1 tablet by mouth once daily. - tamsulosin (FLOMAX) 0.4 mg Take 1 capsule by mouth daily at bedtime. - hydroCHLOROthiazide 25 mg tablet Take 1 tablet by mouth once daily. - predniSONE (DELTASONE) 10 mg tablet Take 10 mg by mouth as needed. - fluticasone (FLONASE) 50 mcg/actuation nasal spray Use 1 [place] in each nostril once daily. Rinse mouth after use. - hydroxychloroquine (PLAQUENIL) 200 mg tablet Take 200 mg by mouth once daily. 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 [facility] 10-25-2024 Telephone encounter Note Spoke with Goran Gabriel on October 25, 2024. Informed of results / instructions as stated above. Patient voiced understanding at this time. Janelle Nunn LPN [facility] 10-25-2024 Miscellaneous Notes Spoke with Goran Gabriel on October 25, 2024. Informed of results / instructions as stated above. Patient voiced understanding at this time. Janelle Nunn LPN Voicemail msg left for patient to return call to [facility] to review test results. Office phone number provided. Lisa Jones LPN ----- Message from Willam Wiley APRN.CNP sent at 10/25/2024 2:17 PM EDT ----- Please call the patient and report lab results were normal. Willam Wiley APRN.CNP Please call the patient and report lab results were normal. Willam Wiley APRN.CNP documented in this encounter [facility] 10-25-2024 Telephone encounter Note Voicemail msg left for patient to return call to [facility] to review test results. Office phone number provided. Lisa Jones LPN [facility] 10-25-2024 Telephone encounter Note ----- Message from Willam Wiley APRN.CNP sent at 10/25/2024 2:17 PM EDT ----- Please call the patient and report lab results were normal. Willam Wiley APRN.CNP [facility] 10-25-2024 Progress note Formatting of t his note might be different from the original. Please call the patient and report lab results were normal. Willam Wiley APRN.CNP [facility] 10-23-2024 Telephone encounter Note TAVR scans for 11/14/24 have been schedule and appt can be found in [facility] appt desk. [facility] 10-23-2024 Miscellaneous Notes TAVR scans for 11/14/24 have been schedule and appt can be found in [facility] appt desk. Please schedule patient for TAVR Scans 11/14/2024 at 8 am (Time approved by CT Department) - patient to arrive to heart and vascular at 7 am - no losartan or HCTZ same day as scans Plan for R/LHC with Dr. Oreilly after TAVR Scans are completed. Patient needs updated blood work. - CBC, BMP, BNP ordered Dental Clearance Requested - Please call dentist to fax over form. Dr. Leal Will await testing results prior to scheduling CT Surgery appt - per Dr. Oreilly. Thank you, Willam Wiley APRN.CNP documented in this encounter [facility] 10-23-2024 Telephone encounter Note Please schedule patient for TAVR Scans 11/14/2024 at 8 am (Time approved by CT Department) - patient to arrive to heart and vascular at 7 am - no losartan or HCTZ same day as scans Plan for R/LHC with Dr. Oreilly after TAVR Scans are completed. Patient needs updated blood work. - CBC, BMP, BNP ordered Dental Clearance Requested - Please call dentist to fax over form. Dr. Leal Will await testing results prior to scheduling CT Surgery appt - per Dr. Oreilly. Thank you, Willam Wiley APRN.TRAIN ANNOUNCER [facility] 10-23-2024 Note HNO ID: [id number] Author: CHEMA OREILLY MD Service: ? Author Type: Physician Type: Progress Notes Filed: 10/23/2024 09:11 Note Text: Chema Oreilly MD Interventional Cardiology [address] [place] [address] [phone] Chief Complaint Patient presents with: Follow Up: 1 year follow up HISTORY OF PRESENT ILLNESS: Mr. Gabriel is a 79 year old male seen in my office today for assessment management of aortic stenosis patient was seen a year ago at that time he had asymptomatic moderate aortic stenosis deny limiting symptoms clinical follow-up was recommended his July 2023 echocardiography revealed peak gradient of 22 and mean of 12 with dimensionless index of 0.36 but labeled low-flow low gradient aortic stenosis stroke-volume index was measured at 30 mL/m? He comes for follow-up this year patient noticed that compared to the last year he has become more short of breath with exertion particularly he noticed that he has to stop residential through the driveway to his house to catch his breath he noticed more exertional dyspnea with physical activity suggest either angina equivalent or worsening of his aortic stenosis Patient does have swelling in both legs slightly elevated JVP Denies chest pain Cardiac Risk Factors age (male over 45, female over 55), hyperlipidemia, obesity, hypertension, family history of CAD PAST MEDICAL HISTORY Diagnosis Date Aortic stenosis mild BPH associated with nocturia Hyperglycemia Hyperlipidemia Hypertension IMPOTENCE, ORGANIC ORIGN Kidney congenitally absent, right L-S radiculopathy right leg, Stenosis on lumbar MRI Obesity Personal history of colonic polyps PAST SURGICAL HISTORY Procedure Laterality Date APPENDECTOMY COLONOSCOPY 10/05/2018 COLONOSCOPY FLX DX W/COLLJ SPEC WHEN PFRMD 09/05/13 normal colon - prior polyps 5 year follow up COLSC FLX W/RMVL OF TUMOR POLYP LESION SNARE TQ 01/20/2005 COLSC FLX W/RMVL OF TUMOR POLYP LESION SNARE TQ 06/13/10 polyps cecum and 45cm, tubular adenomas RPR 1ST INGUN HRNA AGE 5 YRS/> REDUCIBLE Hernia repair, inguinal bilateral RX RIB FRACTURE W 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 90 tablet 3 amLODIPine (NORVASC) 5 mg tablet Take 1 tablet by mouth once daily. 90 tablet 3 losartan (COZAAR) 100 mg tablet Take 1 tablet by mouth once daily. 90 tablet 3 metoprolol succinate ER (TOPROL XL) 25 mg 24 hr tablet Take 1 tablet by mouth once daily. 90 tablet 3 tamsulosin (FLOMAX) 0.4 mg Take 1 capsule by mouth daily at bedtime. 90 capsule 3 hydroCHLOROthiazide 25 mg tablet Take 1 tablet by mouth once daily. 90 tablet 3 predniSONE (DELTASONE) 10 mg tablet Take 10 mg by mouth as needed. fluticasone (FLONASE) 50 mcg/actuation nasal spray Use 1 [place] in each nostril once daily. Rinse mouth after use. 3 Bottle 3 hydroxychloroquine (PLAQUENIL) 200 mg tablet Take 200 mg by mouth once daily. iv contrast (will be provided with radiology test) CTA ABD/PEL LE - No IV access, insert saline lock prior to the sedation, infusion, injection for imaging exam. Discontinue saline lock post exam. If Pt. has a central line or IVAD, may access for administration according to line specific nursing protocol. Once exam is complete flush line and de-access according to line specific nursing protocol in the CT contrast administration guidelines link. 1 each 0 iv contrast (will be provided with radiology test) CTA Chest. No IV access, insert saline lock prior to the sedation, infusion, injection for imaging exam. Discontinue saline lock post exam. If Pt. has a central line or IVAD, may access for administration according to line specific nursing protocol. Once exam is complete flush line and de-access according to line specific nursing protocol in the CT contrast administration guidelines link. 1 each 0 No current facility-administered medications for this visit. Review of Systems Constitutional: Negative for chills, diaphoresis, fever, malaise/fatigue and weight loss. HENT: Negative for congestion, ear discharge, ear pain, hearing loss, nosebleeds, sinus pain, sore throat and tinnitus. Eyes: Negative for blurred vision, double vision, photophobia, pain, discharge and redness. Respiratory: Positive for shortness of breath. Negative for cough, hemoptysis, sputum production, wheezing and stridor. Cardiovascular: Positive for leg swelling. Negative for chest pain, palpitations, orthopnea, claudicatio (more content not included)... [facility] 10-23-2024 History of Present illness Narrative Images from the original note were not included. Chema Oreilly MD Interventional Cardiology [address] [id number] [phone] Chief Complaint Patient presents with: Follow Up: 1 year follow up HISTORY OF PRESENT ILLNESS: Mr. Gabriel is a 79 year old male seen in my office today for assessment management of aortic stenosis patient was seen a year ago at that time he had asymptomatic moderate aortic stenosis deny limiting symptoms clinical follow-up was recommended his July 2023 echocardiography revealed peak gradient of 22 and mean of 12 with dimensionless index of 0.36 but labeled low-flow low gradient aortic stenosis stroke-volume index was measured at 30 mL/m He comes for follow-up this year patient noticed that compared to the last year he has become more short of breath with exertion particularly he noticed that he has to stop residential through the driveway to his house to catch his breath he noticed more exertional dyspnea with physical activity suggest either angina equivalent or worsening of his aortic stenosis Patient does have swelling in both legs slightly elevated JVP Denies chest pain Cardiac Risk Factors age (male over 45, female over 55), hyperlipidemia, obesity, hypertension, family history of CAD PAST MEDICAL HISTORY Diagnosis Date Aortic stenosis mild BPH associated with nocturia Hyperglycemia Hyperlipidemia Hypertension IMPOTENCE, ORGANIC ORIGN Kidney congenitally absent, right L-S radiculopathy right leg, Stenosis on lumbar MRI Obesity Personal history of colonic polyps PAST SURGICAL HISTORY Procedure Laterality Date APPENDECTOMY COLONOSCOPY 10/05/2018 COLONOSCOPY FLX DX W/COLLJ SPEC WHEN PFRMD 09/05/13 normal colon - prior polyps 5 year follow up COLSC FLX W/RMVL OF TUMOR POLYP LESION SNARE TQ 01/20/2005 COLSC FLX W/RMVL OF TUMOR POLYP LESION SNARE TQ 06/13/10 polyps cecum and 45cm, tubular adenomas RPR 1ST INGUN HRNA AGE 5 YRS/> REDUCIBLE Hernia repair, inguinal bilateral RX RIB FRACTURE W BARREL DRUM CUTTER FIXATN TONSILLECTOMY PRIMARY/SECONDARY <AGE 12 Tonsillectomy FAMILY HISTORY Problem Relation Age of Onset Diabetes Father Social History Tobacco Use Smoking status: Never Smokeless tobacco: Never Vaping Use Vaping status: Never Used Substance Use Topics Alcohol use: Not Currently Drug use: Never ALLERGIES Allergen Reactions Simvastatin Intolerance myalgias Medications: Current Outpatient Medications Medication Sig Dispense Refill atorvastatin (LIPITOR) 20 mg tablet Take 1 tablet by mouth once daily. 90 tablet 3 amLODIPine (NORVASC) 5 mg tablet Take 1 tablet by mouth once daily. 90 tablet 3 losartan (COZAAR) 100 mg tablet Take 1 tablet by mouth once daily. 90 tablet 3 metoprolol succinate ER (TOPROL XL) 25 mg 24 hr tablet Take 1 tablet by mouth once daily. 90 tablet 3 tamsulosin (FLOMAX) 0.4 mg Take 1 capsule by mouth daily at bedtime. 90 capsule 3 hydroCHLOROthiazide 25 mg tablet Take 1 tablet by mouth once daily. 90 tablet 3 predniSONE (DELTASONE) 10 mg tablet Take 10 mg by mouth as needed. fluticasone (FLONASE) 50 mcg/actuation nasal spray Use 1 [place] in each nostril once daily. Rinse mouth after use. 3 Bottle 3 hydroxychloroquine (PLAQUENIL) 200 mg tablet Take 200 mg by mouth once daily. iv contrast (will be provided with radiology test) CTA ABD/PEL LE - No IV access, insert saline lock prior to the sedation, infusion, injection for imaging exam. Discontinue saline lock post exam. If Pt. has a central line or IVAD, may access for administration according to line specific nursing protocol. Once exam is complete flush line and de-access according to line specific nursing protocol in the CT contrast administration guidelines link. 1 each 0 iv contrast (will be provided with radiology test) CTA Chest. No IV access, insert saline lock prior to the sedation, infusion, injection for imaging exam. Discontinue saline lock post exam. If Pt. has a central line or IVAD, may access for administration according to line specific nursing protocol. Once exam is complete flush line and de-access according to line specific nursing protocol in the CT contrast administration guidelines link. 1 each 0 No current facility-administered medications for this visit. Review of Systems Constitutional: Negative for chills, diaphoresis, fever, malaise/fatigue and weight loss. HENT: Negative for congestion, ear discharge, ear pain, hearing loss, nosebleeds, sinus pain, sore throat and tinnitus. Eyes: Negative for blurred vision, double vision, photophobia, pain, discharge and redness. Respiratory: Positive for shortness of breath. Negative for cough, hemoptysis, sputum production, wheezing and stridor. Cardiovascular: Positive for leg swelling. Negative for chest pain, palpitations, orthopnea, claudication and PND. Gastrointestinal: Negative for abdominal pain, blood in stool, constipation, diarrhea, heartburn, melena, nausea and vomiting. Genitourinary: Negative for dysuria, flank pain, frequency, hematuria and urgency. Musculoskeletal: Negative for back pain, falls, joint pain, myalgias and neck pain. Skin: Negative for itching and rash. Neurological: Negative for dizziness, tingling, tremors, sensory change, speech change, focal weakness, seizures, loss of consciousness, weakness and headaches. Endo/Heme/Allergies: Negative for environmental allergies and polydipsia. Does not bruise/bleed easily. Psychiatric/Behavioral: Negative for depression, hallucinations, memory loss, substance abuse and suicidal ideas. The patient is not nervous/anxious and does not have insomnia. Physical Examination: Vitals:BP 122/60 Pulse 78 Resp 14 Ht 5' 8 (1.73m) Wt 237 lb (107.5kg) SpO2 95% BMI 36.04 kg/(m^2). BP w/Orthostatic Vitals Date and Time Orthostatic BP Orthostatic Pulse BP Pulse BP Position BP Site BP Cuff Size 10/23/24808 -- -- 122/60 78 Sitting Right Arm Large Adult Peak Flow Date and Time PF Resp 10/23/24808 -- Last 2 Encounter Wt Readings: Date: Wt: 10/23/2024 237 lb (107.5 kg) 09/28/2024 236 lb (107 kg) Physical Exam Constitutional: General: He is not in acute distress. Appearance: He is not diaphoretic. HENT: Head: Normocephalic and atraumatic. Right Ear: External ear normal. Left Ear: External ear normal. Nose: Nose normal. Mouth/Throat: Pharynx: Oropharynx is clear. Eyes: General: Right eye: No discharge. Left eye: No discharge. Conjunctiva/sclera: Conjunctivae normal. Pupils: Pupils are equal, round, and reactive to light. Cardiovascular: Rate and Rhythm: Normal rate and regular rhythm. Heart sounds: S1 normal and S2 normal. Murmur heard. No friction rub. No gallop. No S3 or S4 sounds. Pulmonary: Effort: Pulmonary effort is normal. No respiratory distress. Breath sounds: Normal breath sounds. No wheezing or rales. Chest: Chest wall: No tenderness. Abdominal: General: Abdomen is flat. Musculoskeletal: General: Normal range of motion. Cervical back: Normal range of motion and neck supple. Skin: General: Skin is warm and dry. Neurological: Mental Status: He is alert and oriented to person, place, and time. Psychiatric: Mood and Affect: Mood normal. Pertinent Labs: CBC: Hemoglobin (g/dL) Date Value 09/26/2024 13.1 10/24/2020 13.9 Hematocrit (%) Date Value 09/26/2024 40.6 10/24/2020 43.3 WBC (k/uL) Date Value 09/26/2024 8.35 10/24/2020 7.56 Platelet Count (k/uL) Date Value 09/26/2024 223 10/24/2020 217 BMP: Glucose (mg/dL) Date Value 09/19/2024 111 10/24/2020 111 Potassium (mmol/L) Date Value 09/19/2024 4.2 10/24/2020 4.2 Sodium (mmol/L) Date Value 09/19/2024 137 10/24/2020 139 Chloride (mmol/L) Date Value 09/19/2024 98 10/24/2020 101 CO2 (mmol/L) Date Value 09/19/2024 27 10/24/2020 28 Creatinine (mg/dL) Date Value 09/19/2024 0.89 10/24/2020 1.01 BUN (mg/dL) Date Value 09/19/2024 21 10/24/2020 15 Anion Gap (mmol/L) Date Value 09/19/2024 12 10/24/2020 10 Calcium (mg/dL) Date Value 10/24/2020 9.7 Calcium, Total (mg/dL) Date Value 09/19/2024 9.4 INR: Lipid Profile: Cholesterol, Total Date Value Ref Range Status 09/19/2024 142 <200 mg/dL Final Comment: <200 mg/dL, Desirable 200-239 mg/dL, Borderline high >239 mg/dL, High HDL Cholesterol Date Value Ref Range Status 09/19/2024 48 >39 mg/dL Final Comment: 40-59 mg/dL, Acceptable >59 mg/dL, High: Negative risk factor for coronary heart disease <40 mg/dL, Low: Positive risk factor for coronary heart disease LDL Cholesterol Date Value Ref Range Status 09/19/2024 72 <100 mg/dL Final Comment: <100 mg/dL, Optimal 100-129 mg/dL, Near optimal/above optimal 130-159 mg/dL, Borderline high 160-189 mg/dL, High >189 mg/dL, Very high Secondary prevention optimal LDL Cholesterol levels are recommended to be < 70 mg/dL Triglyceride Date Value Ref Range Status 09/19/2024 109 <150 mg/dL Final Comment: <150 mg/dL, Normal 150-199 mg/dL, Borderline high 200-499 mg/dL, High >499 mg/dL, Very high Hemoglobin A1C: No results found for: HGBA1C TSH: No results found for: TSHREFL Prior Cardiac Testing EKG Assessment and Plan: 79 years old gentleman with aortic stenosis hypertensive heart disease with worsening exertional dyspnea ASSESSMENT/PLAN: 1. Aortic valve disorder - ICD9: 424.1, ICD10: I35.9 (primary diagnosis) Required echo evaluation Possible symptoms related to progression of his aortic stenosis Will schedule him for left and right heart cath TAVR scan - ECHO - PERFLUTREN LIPID MICROSPHERES 1.1 MG/ML INJECTION IN NS 10 ML - SODIUM CHLORIDE 0.9 % (FLUSH) INJECTION SYRINGE - CARDIAC TRANSPLANT IMMUNOLOGIST ORDER 2. Primary hypertension - ICD9: 401.9, ICD10: I10 - Controlled - Continue current medications - Recommend home blood pressure monitoring, to bring results to next visit - Encouraged sodium restriction, DASH or Mediterranean diet - Recommend regular aerobic exercise 3. SOB (shortness of breath) - ICD9: 786.05, ICD10: R06.02 High likelihood of underlying obstructive coronary artery disease Scheduled for left and right heart cath Chema Oreilly MD Follow up plannin months Electronically signed by Chema Oreilly MD on October 23, 2024, 9:03 AM The above note was partially created using a dictation recognition software. A reasonable attempt has been made to correct any errors. documented in this encounter [facility] 10-19-2024 Note HNO ID: [id number] Author: KIRSTEN ETIENNE RN Service: ? Author Type: Registered Nurse Type: Progress Notes Filed: 10/19/2024 15:55 Note Text: [facility] Telephonic Outreach Provider Action/FYI Patient identified by Name and Date of . Discussed care with patient. Program Details Chronic Disease Management Status: Enrolled Effective Dates: 10/04/2024 - present Responsible Staff: Kirsten Etienne RN Support and Services: Hypertension Program Goals Targets Target Due Completed Completed By Outcome Comprehensive HTN education provided 01/04/2025 10/19/2024 Kirsten Etienne RN Complete HTN lab care gaps addressed 01/04/2025 10/19/2024 Kirsten Etienne RN Complete/Scheduled General education provided (managing stress, where to go/how to contact, etc.) 11/06/2024 10/04/2024 Kirsten Etienne RN Complete Intake assessments completed: ADLs, Fall Risk, SDOH 11/06/2024 10/04/2024 Kirsten Etienne RN Complete Annual Medicare Wellness visit addressed 01/04/2025 10/04/2024 Kirsten Etienne RN Complete/Scheduled Biannual PCP visit addressed 01/04/2025 10/04/2024 Kirsten Etienne RN Complete/Scheduled Patient-stated goal addressed (add comment) 01/04/2025 10/04/2024 Kirsten Etienne RN Complete Lose wt Assessments No documentation this encounter Interventions The following were addressed during this visit: - HTN lab care gaps addressed - Comprehensive HTN education provided - Month 1: Provide HTN Education: What is High Blood Pressure - Month 1: Provide HTN Education: When to call your Doctor, When to seek Emergency Care - Month 2: Provide HTN Education: Sodium Controlled Diets - Month 2: Provide HTN Education: High Blood Pressure AND Nutrition - Month 3: Provide HTN Education: Understanding Medications - Month 3: Provide HTN Education: Medication Compliance - Month 1: Provide General Education: Smoking Cessation - Month 1: Provide General Education: Where to Go for Care Kirsten Etienne RN October 19, 2024 3:54 PM [facility] 10-19-2024 History of Present illness Narrative Images from the original note were not included. [facility] Telephonic Outreach Provider Action/FYI Patient identified by Name and Date of . Discussed care with patient. Program Details Chronic Disease Management Status: Enrolled Effective Dates: 10/04/2024 - present Responsible Staff: Kirsten Etienne RN Support and Services: Hypertension Program Goals Targets Target Due Completed Completed By Outcome Comprehensive HTN education provided 01/04/2025 10/19/2024 Kirsten Etienne RN Complete HTN lab care gaps addressed 01/04/2025 10/19/2024 Kirsten Etienne RN Complete/Scheduled General education provided (managing stress, where to go/how to contact, etc.) 11/06/2024 10/04/2024 Kirsten Etienne RN Complete Intake assessments completed: ADLs, Fall Risk, SDOH 11/06/2024 10/04/2024 Kirsten Etienne RN Complete Annual Medicare Wellness visit addressed 01/04/2025 10/04/2024 Kirsten Etienne RN Complete/Scheduled Biannual PCP visit addressed 01/04/2025 10/04/2024 Kirsten Etienne RN Complete/Scheduled Patient-stated goal addressed (add comment) 01/04/2025 10/04/2024 Kirsten Etienne RN Complete Lose wt Assessments No documentation this encounter Interventions The following were addressed during this visit: - HTN lab care gaps addressed - Comprehensive HTN education provided - Month 1: Provide HTN Education: What is High Blood Pressure - Month 1: Provide HTN Education: When to call your Doctor, When to seek Emergency Care - Month 2: Provide HTN Education: Sodium Controlled Diets - Month 2: Provide HTN Education: High Blood Pressure & Nutrition - Month 3: Provide HTN Education: Understanding Medications - Month 3: Provide HTN Education: Medication Compliance - Month 1: Provide General Education: Smoking Cessation - Month 1: Provide General Education: Where to Go for Care Kirsten Etienne RN October 19, 2024 3:54 PM documented in this encounter [facility] 10-19-2024 Note Patient Outreach (AM BC) GORAN GABRIEL ([id number]) 1945 M Date Time Provider Department 10/19/24 KIRSTEN ETIENNEJacques During your visit today, we recorded the following information about you: Kirsten Etienne RN 10/19/2024 3:55 PM Signed [facility] Telephonic Outreach Provider Action/FYI Patient identified by Name and Date of . Discussed care with patient. Program Details Chronic Disease Management Status: Enrolled Effective Dates: 10/04/2024 - present Responsible Staff: Kirsten Etienne RN Support and Services: Hypertension Program Goals Targets Target Due Completed Completed By Outcome Comprehensive HTN education provided 01/04/2025 10/19/2024 Kirsten Etienne RN Complete HTN lab care gaps addressed 01/04/2025 10/19/2024 Kirsten Etienne RN Complete/Scheduled General education provided (managing stress, where to go/how to contact, etc.) 11/06/2024 10/04/2024 Kirsten Etienne RN Complete Intake assessments completed: ADLs, Fall Risk, SDOH 11/06/2024 10/04/2024 Kirsten Etienne RN Complete Annual Medicare Wellness visit addressed 01/04/2025 10/04/2024 Kirsten Etienne RN Complete/Scheduled Biannual PCP visit addressed 01/04/2025 10/04/2024 Kirsten Etienne RN Complete/Scheduled Patient-stated goal addressed (add comment) 01/04/2025 10/04/2024 Kirsten Etienne RN Complete Lose wt Assessments No documentation this encounter Interventions The following were addressed during this visit: - HTN lab care gaps addressed - Comprehensive HTN education provided - Month 1: Provide HTN Education: What is High Blood Pressure - Month 1: Provide HTN Education: When to call your Doctor, When to seek Emergency Care - Month 2: Provide HTN Education: Sodium Controlled Diets - Month 2: Provide HTN Education: High Blood Pressure AND Nutrition - Month 3: Provide HTN Education: Understanding Medications - Month 3: Provide HTN Education: Medication Compliance - Month 1: Provide General Education: Smoking Cessation - Month 1: Provide General Education: Where to Go for Care Kirsten Etienne RN October 19, 2024 3:54 PM Allergies As of Date: 10/19/2024 Noted Allergy Reaction SIMVASTATIN 04/23/2016 5 - Intolerance Comments: myalgias Date Reviewed: 09/28/2024 Reviewed by: Lashaun Blue APRN.[employer] - Fully Assessed Prescriptions as of 10/19/2024 - atorvastatin (LIPITOR) 20 mg tablet Take 1 tablet by mouth once daily. - amLODIPine (NORVASC) 5 mg tablet Take 1 tablet by mouth once daily. - losartan (COZAAR) 100 mg tablet Take 1 tablet by mouth once daily. - metoprolol succinate ER (TOPROL XL) 25 mg 24 hr tablet Take 1 tablet by mouth once daily. - tamsulosin (FLOMAX) 0.4 mg Take 1 capsule by mouth daily at bedtime. - hydroCHLOROthiazide 25 mg tablet Take 1 tablet by mouth once daily. - predniSONE (DELTASONE) 10 mg tablet Take 10 mg by mouth as needed. - fluticasone (FLONASE) 50 mcg/actuation nasal spray Use 1 [place] in each nostril once daily. Rinse mouth after use. - hydroxychloroquine (PLAQUENIL) 200 mg tablet Take 200 mg by mouth once daily. 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] 05/21/2012 L-S radiculopathy [M54.17] 05/21/2012 05/14/2022 Left knee sprain [S83.92XA] 12/09/2012 09/26/2014 Abnormal glucose [R73.09] 02/13/2013 10/30/2020 Sciatica [M54.30] 02/13/2013 10/29/2016 Obesity [E66.9] 02/13/2013 05/14/2022 Lumbar stenosis [M48.061] 09/26/2014 Aortic valve stenosis [I35.0] 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, M19.*02/24/2017 10/30/2020 Left hip pain [M25.552] 02/24/2017 01/16/2019 Cellulitis of right hand [L03.113] 11/28/2018 12/01/2018 Neck pain [M54.2] 11/28/2018 01/16/2019 Acute deep vein thrombosis (DVT) of femoral vei*01/13/2019 10/30/2020 Acute deep vein thrombosis (DVT) of distal end *01/16/2019 02/17/2019 Varicose veins of both legs with edema [I83.893]01/16/2019 Screening for ischemic heart disease [Z13.6] 01/16/2019 05/14/2022 History of cellulitis [Z87.2] 01/16/2019 05/07/2021 Other proteinuria [R80.8] 07/21/2019 Prediabetes [R73.03] 05/07/2021 Inflammatory polyarthritis (HCC) [M06.4] 05/07/2021 Obesity, Class II, BMI 35-39.9 [E66.812] 08/04/2021 Aortic valve disorder [I35.9] 08/04/2021 05/14/2022 Cellulitis of foot [L03.119] 11/11/2022 05/26/2023 Hypertension [I10] 05/26/2023 05/26/2023 Diagnosed: 05/26/2023 Right inguinal pain [R10.31] 05/26/2023 05/26/2023 Diagnosed: 05/26/2023 Encounter Status:Closed by KIRSTEN ETIENNE on 10/19/24 [facility] 10-04-2024 Note HNO ID: [id number] Author: KIRSTEN ETIENNE RN Service: ? Author Type: Registered Nurse Type: Progress Notes Filed: 10/04/2024 14:20 Note Text: [facility] ENROLLMENT Provider Action / FYI: Patient identified by name and date of . Discussed care with patient. {Bryannalo, my name is Kirsten Etienen RN and I am a nurse working with your Primary Care Provider, Miguelangel Courtney MD. I am calling because you have been diagnosed with (state the [facility] carepath you are enrolling for). We would like to work with you over the next few months to help you understand your diagnosis and successfully manage your condition. You will be aligned with one of our Care Coordinators who will work with you and help you achieve this goal. Lose wt Program Details Chronic Disease Management Status: Enrolled Effective Dates: 10/04/2024 - present Responsible Staff: Kirsten Etienne, RN Support and Services: Hypertension Assessments [facility] Assessment Medications: Do you have any questions about taking your medications or which medications you should be taking?: No Do you need any medication refills at this time, including any of the medication you might take only when needed?: No Social: It can be normal to feel anxious or down during a time like this. Would you like to talk to a mental health professional about how you have been feeling?: No Symptoms: Are you experiencing any new or worsening symptoms that you need to talk about today?: No ADLs Patients can perform the following activities without help: Dressing: Yes Bathing: Yes Doing laundry: Yes Instrumental activities of daily living Do you drive a car?: Yes Do you need help from others to take care of things inside the house, for example: laundry, house cleaning, preparing meals?: No Do you need help from others with errands outside the house, for example: shopping for groceries or clothes, going medical appointments?: No Fall Risk One or more falls in the last year:: No Advised to use a cane or walker to get around safely:: No SDOH Housing Stability In the last 12 months, was there a time when you were not able to pay the mortgage or rent on time?: No At any time in the past 12 months, were you homeless or living in a halfway (including now)?: No Transportation Needs In the past 12 months, has lack of transportation kept you from medical appointments or from getting medications?: No In the past 12 months, has lack of transportation kept you from meetings, work, or from getting things needed for daily living?: No Food Insecurity Within the past 12 months, you worried that your food would run out before you got the money to buy more.: Never true Within the past 12 months, the food you bought just didn't last and you didn't have money to get more.: Never true Tobacco Use Patient reports that he has never smoked. He has never used smokeless tobacco. Interventions The following were addressed during this visit: - Initial enrollment outreach - Month 1: Review Individual Blood Pressure Target (If established by provider) - Month 3: Schedule/Order BMP Lab - Intake assessments completed: ADLs, Fall Risk, SDOH - Biannual PCP visit addressed - General education provided (managing stress, where to go/how to contact, etc.) - Annual Medicare Wellness visit addressed - Patient-stated goal addressed (add comment) - Schedule Biannual PCP Appointment - Schedule Annual Wellness Visit - Month 1: Provide General Education: Managing Stress AND Anxiety - Month 1: Provide General Education: How to Contact Your Physician Team - Develop a Patient-Stated Goal (add to Target comments) Disposition Based on business continuity global director, the following disposition is advised: No action needed Kirsten Etienne RN October 04, 2024 1:58 PM [facility] 10-04-2024 History of Present illness Narrative [facility] Provider Action / FYI: Patient identified by name and date of . Discussed care with patient. {Amy, my name is Kirsten Etienne RN and I am a nurse working with your Primary Care Provider, Miguelangel Courtney MD. I am calling because you have been diagnosed with (state the [facility] carepath you are enrolling for). We would like to work with you over the next few months to help you understand your diagnosis and successfully manage your condition. You will be aligned with one of our Care Coordinators who will work with you and help you achieve this goal. Lose wt Program Details Chronic Disease Management Status: Enrolled Effective Dates: 10/04/2024 - present Responsible Staff: Kirsten Etienne RN Support and Services: Hypertension Assessments CDM Assessment Medications: Do you have any questions about taking your medications or which medications you should be taking?: No Do you need any medication refills at this time, including any of the medication you might take only when needed?: No Social: It can be normal to feel anxious or down during a time like this. Would you like to talk to a mental health professional about how you have been feeling?: No Symptoms: Are you experiencing any new or worsening symptoms that you need to talk about today?: No ADLs Patients can perform the following activities without help: Dressing: Yes Bathing: Yes Doing laundry: Yes Instrumental activities of daily living Do you drive a car?: Yes Do you need help from others to take care of things inside the house, for example: laundry, house cleaning, preparing meals?: No Do you need help from others with errands outside the house, for example: shopping for groceries or clothes, going medical appointments?: No Fall Risk One or more falls in the last year:: No Advised to use a cane or walker to get around safely:: No SDOH Housing Stability In the last 12 months, was there a time when you were not able to pay the mortgage or rent on time?: No At any time in the past 12 months, were you homeless or living in a halfway (including now)?: No Transportation Needs In the past 12 months, has lack of transportation kept you from medical appointments or from getting medications?: No In the past 12 months, has lack of transportation kept you from meetings, work, or from getting things needed for daily living?: No Food Insecurity Within the past 12 months, you worried that your food would run out before you got the money to buy more.: Never true Within the past 12 months, the food you bought just didn't last and you didn't have money to get more.: Never true Tobacco Use Patient reports that he has never smoked. He has never used smokeless tobacco. Interventions The following were addressed during this visit: - Initial enrollment outreach - Month 1: Review Individual Blood Pressure Target (If established by provider) - Month 3: Schedule/Order BMP Lab - Intake assessments completed: ADLs, Fall Risk, SDOH - Biannual PCP visit addressed - General education provided (managing stress, where to go/how to contact, etc.) - Annual Medicare Wellness visit addressed - Patient-stated goal addressed (add comment) - Schedule Biannual PCP Appointment - Schedule Annual Wellness Visit - Month 1: Provide General Education: Managing Stress & Anxiety - Month 1: Provide General Education: How to Contact Your Physician Team - Develop a Patient-Stated Goal (add to Target comments) Disposition Based on business continuity global director, the following disposition is advised: No action needed Kirsten Etienne RN October 04, 2024 1:58 PM documented in this encounter [facility] 10-04-2024 Note Patient Outreach ([facility] GORAN GABRIEL ([id number]) 1945 M Date Time Provider Department 10/04/24 KIRSTEN ETIENNE During your visit today, we recorded the following information about you: Kirsten Etienne, RN 10/04/2024 2:20 PM Signed [facility] Provider Action / FYI: Patient identified by name and date of . Discussed care with patient. {Amy, my name is Kirsten Etienne, RN and I am a nurse working with your Primary Care Provider, Miguelangel Courtney MD. I am calling because you have been diagnosed with (state the [facility] carepath you are enrolling for). We would like to work with you over the next few months to help you understand your diagnosis and successfully manage your condition. You will be aligned with one of our Care Coordinators who will work with you and help you achieve this goal. Lose wt Program Details Chronic Disease Management Status: Enrolled Effective Dates: 10/04/2024 - present Responsible Staff: Kirsten Etienne RN Support and Services: Hypertension Assessments CD Assessment Medications: Do you have any questions about taking your medications or which medications you should be taking?: No Do you need any medication refills at this time, including any of the medication you might take only when needed?: No Social: It can be normal to feel anxious or down during a time like this. Would you like to talk to a mental health professional about how you have been feeling?: No Symptoms: Are you experiencing any new or worsening symptoms that you need to talk about today?: No ADLs Patients can perform the following activities without help: Dressing: Yes Bathing: Yes Doing laundry: Yes Instrumental activities of daily living Do you drive a car?: Yes Do you need help from others to take care of things inside the house, for example: laundry, house cleaning, preparing meals?: No Do you need help from others with errands outside the house, for example: shopping for groceries or clothes, going medical appointments?: No Fall Risk One or more falls in the last year:: No Advised to use a cane or walker to get around safely:: No SDOH Housing Stability In the last 12 months, was there a time when you were not able to pay the mortgage or rent on time?: No At any time in the past 12 months, were you homeless or living in a halfway (including now)?: No Transportation Needs In the past 12 months, has lack of transportation kept you from medical appointments or from getting medications?: No In the past 12 months, has lack of transportation kept you from meetings, work, or from getting things needed for daily living?: No Food Insecurity Within the past 12 months, you worried that your food would run out before you got the money to buy more.: Never true Within the past 12 months, the food you bought just didn't last and you didn't have money to get more.: Never true Tobacco Use Patient reports that he has never smoked. He has never used smokeless tobacco. Interventions The following were addressed during this visit: - Initial enrollment outreach - Month 1: Review Individual Blood Pressure Target (If established by provider) - Month 3: Schedule/Order BMP Lab - Intake assessments completed: ADLs, Fall Risk, SDOH - Biannual PCP visit addressed - General education provided (managing stress, where to go/how to contact, etc.) - Annual Medicare Wellness visit addressed - Patient-stated goal addressed (add comment) - Schedule Biannual PCP Appointment - Schedule Annual Wellness Visit - Month 1: Provide General Education: Managing Stress AND Anxiety - Month 1: Provide General Education: How to Contact Your Physician Team - Develop a Patient-Stated Goal (add to Target comments) Disposition Based on business continuity global director, the following disposition is advised: No action needed Kirsten Etienne RN October 04, 2024 1:58 PM Allergies As of Date: 10/04/2024 Noted Allergy Reaction SIMVASTATIN 04/23/2016 5 - Intolerance Comments: myalgias Date Reviewed: 09/28/2024 Reviewed by: Lashaun Blue APRN.TRAIN ANNOUNCER - Fully Assessed Prescriptions as of 10/04/2024 - atorvastatin (LIPITOR) 20 mg tablet Take 1 tablet by mouth once daily. - amLODIPine (NORVASC) 5 mg tablet Take 1 tablet by mouth once daily. - losartan (COZAAR) 100 mg tablet Take 1 tablet by mouth once daily. - metoprolol succinate ER (TOPROL XL) 25 mg 24 hr tablet Take 1 tablet by mouth once daily. - tamsulosin (FLOMAX) 0.4 mg Take 1 capsule by mouth daily at bedtime. - hydroCHLOROthiazide 25 mg tablet Take 1 tablet by mouth once daily. - predniSONE (DELTASONE) 10 mg tablet Take 10 mg by mouth as needed. - fluticasone (FLONASE) 50 mcg/actuation nasal spray Use 1 [place] in each nostril once daily. Rinse mouth after use. - hydroxychloroquine (PLAQUENIL) 200 mg tablet Take (more content not included)... [facility] 09-28-2024 History of Present illness Narrative HISTORY AND PHYSICAL Goran Gabriel : 1945 REFERRING PHYSICIAN: Miguelangel Courtney [address] [facility] [address] CHIEF COMPLAINT: Patient presents with: Consult HPI: Goran is a 79 year old male referred for endoscopy. Goran notes son was recently dx with colon cancer- requesting colonoscopy. Goran also was noted to have anemia 09/19/24 but labs drawn yesterday were normal any intervention. Goran denies abdominal pain. Goran denies diarrhea. Goran denies constipation. Goran denies a change in bowel habits. Goran denies melena. Goran denies bright red blood per rectum. Goran denies hemorrhoids. Goran denies heartburn. Goran denies dysphagia. Goran denies a history of ulcers/ peptic ulcer disease. Goran follows with [facility] cardiology for aortic stenosis, HTN, HLD. Last ECHO 10/2023 EF of 57%, no worsening stenosis. Next appt 10/23/24. He denies CP, SOB, dizziness, palpitations, syncope, edema, recent hospitalizations Goran also has a hx of inflammatory polyarthritis. He follows with rheumatology. Goran has undergone prior endoscopy. Last colonoscopy was 09/[address] Bennett at [facility]. Sedation:Midazolam 5 mg IV, Fentanyl 50 micrograms IV Impression: - Non-bleeding internal hemorrhoids. - No specimens collected. Current Outpatient Medications Medication Sig atorvastatin (LIPITOR) 20 mg tablet Take 1 tablet by mouth once daily. amLODIPine (NORVASC) 5 mg tablet Take 1 tablet by mouth once daily. losartan (COZAAR) 100 mg tablet Take 1 tablet by mouth once daily. metoprolol succinate ER (TOPROL XL) 25 mg 24 hr tablet Take 1 tablet by mouth once daily. tamsulosin (FLOMAX) 0.4 mg Take 1 capsule by mouth daily at bedtime. hydroCHLOROthiazide 25 mg tablet Take 1 tablet by mouth once daily. predniSONE (DELTASONE) 10 mg tablet Take 10 mg by mouth as needed. fluticasone (FLONASE) 50 mcg/actuation nasal spray Use 1 [place] in each nostril once daily. Rinse mouth after use. hydroxychloroquine (PLAQUENIL) 200 mg tablet Take 200 mg by mouth once daily. peg 3350-Electrolytes (GOLYTELY) 236-22.74-6.74 -5.86 gram suspension Take 4,000 mL by mouth one time only for 1 dose. Refer to printed prep instructions from your provider. No current facility-administered medications for this visit. ALLERGIES: Simvastatin PAST MEDICAL HISTORY Diagnosis Date Aortic stenosis mild BPH associated with nocturia Hyperglycemia Hyperlipidemia Hypertension IMPOTENCE, ORGANIC ORIGN Kidney congenitally absent, right L-S radiculopathy right leg, Stenosis on lumbar MRI Obesity Personal history of colonic polyps PAST SURGICAL HISTORY Procedure Laterality Date APPENDECTOMY COLONOSCOPY 10/05/2018 COLONOSCOPY FLX DX W/COLLJ SPEC WHEN PFRMD 09/05/13 normal colon - prior polyps 5 year follow up COLSC FLX W/RMVL OF TUMOR POLYP LESION SNARE TQ 01/20/2005 COLSC FLX W/RMVL OF TUMOR POLYP LESION SNARE TQ 06/13/10 polyps cecum and 45cm, tubular adenomas RPR 1ST INGUN HRNA AGE 5 YRS/> REDUCIBLE Hernia repair, inguinal bilateral RX RIB FRACTURE W BARREL DRUM CUTTER FIXATN TONSILLECTOMY PRIMARY/SECONDARY <AGE 12 Tonsillectomy FAMILY HISTORY Problem Relation Age of Onset Diabetes Father Social History Tobacco Use Smoking status: Never Smokeless tobacco: Never Vaping Use Vaping status: Never Used Substance Use Topics Alcohol use: Not Currently Drug use: Never REVIEW OF SYMPTOMS: The review of systems data was entered by the nurse and reviewed by me SEE NURSING NOTE PHYSICAL EXAMINATION: General: The patient is 79 year old, male well nourished, well hydrated in no acute distress. The patient is oriented to time, place, and person. VITALS: Blood pressure 118/64, pulse 94, temperature 36.7 C (98.1 F), temperature source Temporal Artery, resp. rate 16, weight 107 kg (236 lb), SpO2 94%. Body mass index is 36.96 kg/m . HEENT: Normal cephalic, ataumatic, pupils are equally round, sclera are anicteric, mucous membranes are moist, oropharynx is clear. Neck has no masses, asymmetry or lymphadenopathy. Respiratory: Clear to auscultation and percussion. Normal respiratory excursion and pattern. Cardiac: Examination is regular rate and rhythm. +murmur Abdominal exam: Soft, nontender, with no palpable masses. No hepatosplenomegaly. No palpable hernias. Extremities: no clubbing, cyanosis or edema. No adenopathy. LABORATORY VALUES: As Noted RADIOLOGIC STUDIES: As Noted Assessment IMPRESSION: family history of colon cancer, anemia PLAN: I have reviewed my findings with the surgeon. Will plan for lower endoscopy. We discussed the risks and benefits of the planned endoscopy. I have informed the patient that complications can occur including failure to complete the endoscopy and perforation. Goran had the opportunity to ask questions concerning the planned endoscopy. My staff has also explained the procedure to the patient in understandable terms and has given the patient printed material concerning the procedure. Goran freely consents to surgery. I plan to use Gol[place]ely bowel preparation I have explained to the patient the difference between IV conscious sedation and MAC anesthesia - and I have offered either, according to the patient's wishes. I have explained that with IV conscious sedation there is no anesthesia provider available and therefore there is a limitation of the amount of IV medications that can be given and that the patient may wake up in the middle of the procedure and/or experience pain/discomfort during the procedure. Further discussion was done and the patient was given the opportunity to ask questions and all questions were answered. Goran chooses MAC anesthesia. Goran was counseled that if there are changes in his/her medical condition, to let the office know if surgery should proceed. If there are changes in patient's medical condition from time of this encounter to the day of the procedure that preclude anesthesia, patient may have procedure cancelled for patient's safety. Diagnoses: (Z80.0) Family history of colon cancer (primary encounter diagnosis) (D64.9) Anemia, unspecified type Consultation requested by Dr. Courtney for an opinion regarding family hx of colon cancer & anemia. My final recommendations will be communicated back to the requesting physician by way of shared Medical record or letter to requesting physician via US mail. Portions of this documentation were copied and pasted from previous office visit notes in order to provide a cohesive continuity of the history. The note has been reviewed and edited and updated as necessary. Lashaun Blue APRN.TRAIN ANNOUNCER documented in this encounter [facility] 09-28-2024 Note HNO ID: [id number] Author: LASHAUN BLUE APRN.KATELYNN Service: ? Author Type: Nurse Practitioner Type: Progress Notes Filed: 09/28/2024 13:02 Note Text: HISTORY AND PHYSICAL Goran Gabriel : 1945 REFERRING PHYSICIAN: Miguelangel Macdonald [address] [facility] [address] CHIEF COMPLAINT: Patient presents with: Consult HPI: Goran is a 79 year old male referred for endoscopy. Goran notes son was recently dx with colon cancer- requesting colonoscopy. Goran also was noted to have anemia 09/19/24 but labs drawn yesterday were normal any intervention. Goran denies abdominal pain. Goran denies diarrhea. Goran denies constipation. Goran denies a change in bowel habits. Goran denies melena. Goran denies bright red blood per rectum. Goran denies hemorrhoids. Goran denies heartburn. Goran denies dysphagia. Goran denies a history of ulcers/ peptic ulcer disease. Goran follows with [facility] cardiology for aortic stenosis, HTN, HLD. Last ECHO 10/2023 EF of 57%, no worsening stenosis. Next appt 10/23/24. He denies CP, SOB, dizziness, palpitations, syncope, edema, recent hospitalizations Goran also has a hx of inflammatory polyarthritis. He follows with rheumatology. Goran has undergone prior endoscopy. Last colonoscopy was 09/[address] Bennett at [facility]. Sedation:Midazolam 5 mg IV, Fentanyl 50 micrograms IV Impression: - Non-bleeding internal hemorrhoids. - No specimens collected. Current Outpatient Medications Medication Sig atorvastatin (LIPITOR) 20 mg tablet Take 1 tablet by mouth once daily. amLODIPine (NORVASC) 5 mg tablet Take 1 tablet by mouth once daily. losartan (COZAAR) 100 mg tablet Take 1 tablet by mouth once daily. metoprolol succinate ER (TOPROL XL) 25 mg 24 hr tablet Take 1 tablet by mouth once daily. tamsulosin (FLOMAX) 0.4 mg Take 1 capsule by mouth daily at bedtime. hydroCHLOROthiazide 25 mg tablet Take 1 tablet by mouth once daily. predniSONE (DELTASONE) 10 mg tablet Take 10 mg by mouth as needed. fluticasone (FLONASE) 50 mcg/actuation nasal spray Use 1 [place] in each nostril once daily. Rinse mouth after use. hydroxychloroquine (PLAQUENIL) 200 mg tablet Take 200 mg by mouth once daily. peg 3350-Electrolytes (GOLYTELY) 236-22.74-6.74 -5.86 gram suspension Take 4,000 mL by mouth one time only for 1 dose. Refer to printed prep instructions from your provider. No current facility-administered medications for this visit. ALLERGIES: Simvastatin PAST MEDICAL HISTORY Diagnosis Date Aortic stenosis mild BPH associated with nocturia Hyperglycemia Hyperlipidemia Hypertension IMPOTENCE, ORGANIC ORIGN Kidney congenitally absent, right L-S radiculopathy right leg, Stenosis on lumbar MRI Obesity Personal history of colonic polyps PAST SURGICAL HISTORY Procedure Laterality Date APPENDECTOMY COLONOSCOPY 10/05/2018 COLONOSCOPY FLX DX W/COLLJ SPEC WHEN PFRMD 09/05/13 normal colon - prior polyps 5 year follow up COLSC FLX W/RMVL OF TUMOR POLYP LESION SNARE TQ 01/20/2005 COLSC FLX W/RMVL OF TUMOR POLYP LESION SNARE TQ 06/13/10 polyps cecum and 45cm, tubular adenomas RPR 1ST INGUN HRNA AGE 5 YRS/> REDUCIBLE Hernia repair, inguinal bilateral RX RIB FRACTURE W BARREL DRUM CUTTER FIXATN TONSILLECTOMY PRIMARY/SECONDARY Tonsillectomy FAMILY HISTORY Problem Relation Age of Onset Diabetes Father Social History Tobacco Use Smoking status: Never Smokeless tobacco: Never Vaping Use Vaping status: Never Used Substance Use Topics Alcohol use: Not Currently Drug use: Never REVIEW OF SYMPTOMS: The review of systems data was entered by the nurse and reviewed by me SEE NURSING NOTE PHYSICAL EXAMINATION: General: The patient is 79 year old, male well nourished, well hydrated in no acute distress. The patient is oriented to time, place, and person. VITALS: Blood pressure 118/64, pulse 94, temperature 36.7 ?C (98.1 ?F), temperature source Temporal Artery, resp. rate 16, weight 107 kg (236 lb), SpO2 94%. Body mass index is 36.96 kg/m?. HEENT: Normal cephalic, ataumatic, pupils are equally round, sclera are anicteric, mucous membranes are moist, oropharynx is clear. Neck has no masses, asymmetry or lymphadenopathy. Respiratory: Clear to auscultation and percussion. Normal respiratory excursion and pattern. Cardiac: Examination is regular rate and rhythm. +murmur Abdominal exam: Soft, nontender, with no palpable masses. No hepatosplenomegaly. No palpable hernias. Extremities: no clubbing, cyanosis or edema. No adenopathy. LABORATORY VALUES: As Noted RADIOLOGIC STUDIES: As Noted Assessment IMPRESSION: family history of colon cancer, anemia PLAN: I have reviewed my findings with the surgeon. Will plan for lower endoscopy. We discussed the risks and benefits of the planned endoscopy. I have informed the patient that complications can occur including failure to complete the endoscopy and perforation. Goran had the op (more content not included)... [facility] 09-25-2024 Instructions Miguelangel Courtney MD - 09/25/2024 5:24 PM EDT Latest Ref Rng 09/19/2024 WBC 3.70 - 11.00 k/uL 8.39 RBC 4.20 - 6.00 m/uL 4.11 (L) Hemoglobin 13.0 - 17.0 g/dL 12.7 (L) Hematocrit 39.0 - 51.0 % 38.5 (L) MCV 80.0 - 100.0 fL 93.7 MCH 26.0 - 34.0 pg 30.9 MCHC 30.5 - 36.0 g/dL 33.0 RDW-CV 11.5 - 15.0 % 12.7 Platelet Count 150 - 400 k/uL 194 MPV 9.0 - 12.7 fL 10.5 Neut% % 74.8 Abs Neut (ANC) 1.45 - 7.50 k/uL 6.28 Lymph% % 14.7 Abs Lymph 1.00 - 4.00 k/uL 1.23 [place]% % 8.1 Abs [place] <0.87 k/uL 0.68 Eosin% % 1.3 Abs Eosin <0.46 k/uL 0.11 Baso% % 0.4 Abs Baso <0.11 k/uL 0.03 Immature Gran % % 0.7 IMMATURE GRANS (ABS) <0.10 k/uL 0.06 NRBC /100 WBC 0.0 Absolute nRBC <0.01 k/uL <0.01 DTYPE Auto Protein, Total 6.3 - 8.0 g/dL 6.9 Albumin 3.9 - 4.9 g/dL 4.3 Calcium 8.5 - 10.2 mg/dL 9.4 Bilirubin, Total 0.2 - 1.3 mg/dL 0.4 Alkaline Phosphatase 38 - 113 U/L 88 AST 14 - 40 U/L 19 ALT 10 - 54 U/L 17 Glucose 74 - 99 mg/dL 111 (H) BUN 9 - 24 mg/dL 21 Creatinine 0.73 - 1.22 mg/dL 0.89 Sodium 136 - 144 mmol/L 137 Potassium 3.7 - 5.1 mmol/L 4.2 Chloride 98 - 107 mmol/L 98 CO2 22 - 30 mmol/L 27 Anion Gap 8 - 15 mmol/L 12 eGFR >=60 mL/min/1.73m 87 Cholesterol, Total <200 mg/dL 142 Triglyceride <150 mg/dL 109 HDL Cholesterol >39 mg/dL 48 Non HDL Cholesterol <130 mg/dL 94 Fasting Time hrs 14 VLDL Cholesterol <30 mg/dL 22 TC:HDL Ratio <5.10 2.96 LDL Cholesterol <100 mg/dL 72 LDL:HDL Ratio <2.54 1.50 Hemoglobin A1C 4.3 - 5.6 % 6.1 (H) Estimated Average Glucose mg/dL 128 Legend: (L) Low (H) High documented in this encounter [facility] 09-25-2024 Note HNO ID: [id number] Author: MIGUELANGEL COURTNEY MD Service: ? Author Type: Physician Type: Progress Notes Filed: 09/25/2024 17:37 Note Text: No chief complaint on file. HPI: Patient presents today for office visit for follow up. Reviewed labs. Has a mild anemia. No bloody or black stools. No changes in diet. His son was just diagnose with colon cancer and he would like a colonoscopy. Arthritis is stable. Overall is not bad. Still seeing cardiology. No chest pain or shortness of breath. No edema. Still seeing rheumatology. Still seeing urology and nephrology. No issues with lipid lowering meds. Labs are very good. Note was copied and pasted, without alteration from previous ov: HTN: Patient is compliant with meds Yes Monitors bp at home: Yes. Denies side effects: Yes. Chest pain: No. Dyspnea: No. Edema: No. Palpitations: No. Syncope: No. Headache: No. Dizziness: No. Sugars are stable. Discussed limiting diet and weight. Declines metformin. Tired feet bothersome to stand for a long period of time Allergies: Told him to try Claritin or Josephine. Following with urology, nephrology and cardiology. Also seeing rheumatology Latest Ref Rng 09/19/2024 WBC 3.70 - 11.00 k/uL 8.39 RBC 4.20 - 6.00 m/uL 4.11 (L) Hemoglobin 13.0 - 17.0 g/dL 12.7 (L) Hematocrit 39.0 - 51.0 % 38.5 (L) MCV 80.0 - 100.0 fL 93.7 MCH 26.0 - 34.0 pg 30.9 MCHC 30.5 - 36.0 g/dL 33.0 RDW-CV 11.5 - 15.0 % 12.7 Platelet Count 150 - 400 k/uL 194 MPV 9.0 - 12.7 fL 10.5 Neut% % 74.8 Abs Neut (ANC) 1.45 - 7.50 k/uL 6.28 Lymph% % 14.7 Abs Lymph 1.00 - 4.00 k/uL 1.23 [place]% % 8.1 Abs [place] <0.87 k/uL 0.68 Eosin% % 1.3 Abs Eosin <0.46 k/uL 0.11 Baso% % 0.4 Abs Baso <0.11 k/uL 0.03 Immature Gran % % 0.7 IMMATURE GRANS (ABS) <0.10 k/uL 0.06 NRBC /100 WBC 0.0 Absolute nRBC <0.01 k/uL <0.01 DTYPE Auto Protein, Total 6.3 - 8.0 g/dL 6.9 Albumin 3.9 - 4.9 g/dL 4.3 Calcium 8.5 - 10.2 mg/dL 9.4 Bilirubin, Total 0.2 - 1.3 mg/dL 0.4 Alkaline Phosphatase 38 - 113 U/L 88 AST 14 - 40 U/L 19 ALT 10 - 54 U/L 17 Glucose 74 - 99 mg/dL 111 (H) BUN 9 - 24 mg/dL 21 Creatinine 0.73 - 1.22 mg/dL 0.89 Sodium 136 - 144 mmol/L 137 Potassium 3.7 - 5.1 mmol/L 4.2 Chloride 98 - 107 mmol/L 98 CO2 22 - 30 mmol/L 27 Anion Gap 8 - 15 mmol/L 12 eGFR >=60 mL/min/1.73m? 87 Cholesterol, Total <200 mg/dL 142 Triglyceride <150 mg/dL 109 HDL Cholesterol >39 mg/dL 48 Non HDL Cholesterol <130 mg/dL 94 Fasting Time hrs 14 VLDL Cholesterol <30 mg/dL 22 TC:HDL Ratio <5.10 2.96 LDL Cholesterol <100 mg/dL 72 LDL:HDL Ratio <2.54 1.50 Hemoglobin A1C 4.3 - 5.6 % 6.1 (H) Estimated Average Glucose mg/dL 128 Legend: (L) Low (H) High MEDICATIONS: Current Outpatient Medications Medication Sig atorvastatin (LIPITOR) 20 mg tablet Take 1 tablet by mouth once daily. amLODIPine (NORVASC) 5 mg tablet Take 1 tablet by mouth once daily. losartan (COZAAR) 100 mg tablet Take 1 tablet by mouth once daily. metoprolol succinate ER (TOPROL XL) 25 mg 24 hr tablet Take 1 tablet by mouth once daily. tamsulosin (FLOMAX) 0.4 mg Take 1 capsule by mouth daily at bedtime. hydroCHLOROthiazide 25 mg tablet Take 1 tablet by mouth once daily. predniSONE (DELTASONE) 10 mg tablet Take 10 mg by mouth as needed. albuterol HFA (VENTOLIN HFA) 90 mcg/actuation inhaler Inhale 2 Puffs as instructed every 4 hours as needed for wheezing/shortness of breath. (Patient not taking: Reported on 05/30/2024) fluticasone (FLONASE) 50 mcg/actuation nasal spray Use 1 [place] in each nostril once daily. Rinse mouth after use. hydroxychloroquine (PLAQUENIL) 200 mg tablet Take 200 mg by mouth once daily. No current facility-administered medications for this visit. ALLERGIES: ALLERGIES Allergen Reactions Simvastatin Intolerance myalgias PAST MEDICAL HISTORY Diagnosis Date Aortic stenosis mild BPH associated with nocturia Hyperglycemia Hyperlipidemia Hypertension IMPOTENCE, ORGANIC ORIGN Kidney congenitally absent, right L-S radiculopathy right leg, Stenosis on lumbar MRI Obesity Personal history of colonic polyps PAST SURGICAL HISTORY Procedure Laterality Date APPENDECTOMY COLONOSCOPY 10/05/2018 COLONOSCOPY FLX DX W/COLLJ SPEC WHEN PFRMD 09/05/13 normal colon - prior polyps 5 year follow up COLSC FLX W/RMVL OF TUMOR POLYP LESION SNARE TQ 01/20/2005 COLSC FLX W/RMVL OF TUMOR POLYP LESION SNARE TQ 06/13/10 polyps cecum and 45cm, tubular adenomas RPR 1ST INGUN HRNA AGE 5 YRS/> REDUCIBLE Hernia repair, inguinal bilateral RX RIB FRACTURE W BARREL DRUM CUTTER FIXATN TONSILLECTOMY PRIMARY/SECONDARY Tonsillectomy FAMILY HISTORY Problem Relation Age of Onset Diabetes Father Social History Tobacco Use Smoking status: Never Smokeless tobacco: Never Vaping Use Vaping status: Never Used Substance Use Topics Alcohol use: Not Currently Drug use: Never Reviewed current medications, allergies, pas (more content not included)... [facility] 09-25-2024 History of Present illness Narrative No chief complaint on file. HPI: Patient presents today for office visit for follow up. Reviewed labs. Has a mild anemia. No bloody or black stools. No changes in diet. His son was just diagnose with colon cancer and he would like a colonoscopy. Arthritis is stable. Overall is not bad. Still seeing cardiology. No chest pain or shortness of breath. No edema. Still seeing rheumatology. Still seeing urology and nephrology. No issues with lipid lowering meds. Labs are very good. Note was copied and pasted, without alteration from previous ov: HTN: Patient is compliant with meds Yes Monitors bp at home: Yes. Denies side effects: Yes. Chest pain: No. Dyspnea: No. Edema: No. Palpitations: No. Syncope: No. Headache: No. Dizziness: No. Sugars are stable. Discussed limiting diet and weight. Declines metformin. Tired feet bothersome to stand for a long period of time Allergies: Told him to try Claritin or Josephine. Following with urology, nephrology and cardiology. Also seeing rheumatology Latest Ref Rng 09/19/2024 WBC 3.70 - 11.00 k/uL 8.39 RBC 4.20 - 6.00 m/uL 4.11 (L) Hemoglobin 13.0 - 17.0 g/dL 12.7 (L) Hematocrit 39.0 - 51.0 % 38.5 (L) MCV 80.0 - 100.0 fL 93.7 MCH 26.0 - 34.0 pg 30.9 MCHC 30.5 - 36.0 g/dL 33.0 RDW-CV 11.5 - 15.0 % 12.7 Platelet Count 150 - 400 k/uL 194 MPV 9.0 - 12.7 fL 10.5 Neut% % 74.8 Abs Neut (ANC) 1.45 - 7.50 k/uL 6.28 Lymph% % 14.7 Abs Lymph 1.00 - 4.00 k/uL 1.23 [place]% % 8.1 Abs [place] <0.87 k/uL 0.68 Eosin% % 1.3 Abs Eosin <0.46 k/uL 0.11 Baso% % 0.4 Abs Baso <0.11 k/uL 0.03 Immature Gran % % 0.7 IMMATURE GRANS (ABS) <0.10 k/uL 0.06 NRBC /100 WBC 0.0 Absolute nRBC <0.01 k/uL <0.01 DTYPE Auto Protein, Total 6.3 - 8.0 g/dL 6.9 Albumin 3.9 - 4.9 g/dL 4.3 Calcium 8.5 - 10.2 mg/dL 9.4 Bilirubin, Total 0.2 - 1.3 mg/dL 0.4 Alkaline Phosphatase 38 - 113 U/L 88 AST 14 - 40 U/L 19 ALT 10 - 54 U/L 17 Glucose 74 - 99 mg/dL 111 (H) BUN 9 - 24 mg/dL 21 Creatinine 0.73 - 1.22 mg/dL 0.89 Sodium 136 - 144 mmol/L 137 Potassium 3.7 - 5.1 mmol/L 4.2 Chloride 98 - 107 mmol/L 98 CO2 22 - 30 mmol/L 27 Anion Gap 8 - 15 mmol/L 12 eGFR >=60 mL/min/1.73m 87 Cholesterol, Total <200 mg/dL 142 Triglyceride <150 mg/dL 109 HDL Cholesterol >39 mg/dL 48 Non HDL Cholesterol <130 mg/dL 94 Fasting Time hrs 14 VLDL Cholesterol <30 mg/dL 22 TC:HDL Ratio <5.10 2.96 LDL Cholesterol <100 mg/dL 72 LDL:HDL Ratio <2.54 1.50 Hemoglobin A1C 4.3 - 5.6 % 6.1 (H) Estimated Average Glucose mg/dL 128 Legend: (L) Low (H) High MEDICATIONS: Current Outpatient Medications Medication Sig atorvastatin (LIPITOR) 20 mg tablet Take 1 tablet by mouth once daily. amLODIPine (NORVASC) 5 mg tablet Take 1 tablet by mouth once daily. losartan (COZAAR) 100 mg tablet Take 1 tablet by mouth once daily. metoprolol succinate ER (TOPROL XL) 25 mg 24 hr tablet Take 1 tablet by mouth once daily. tamsulosin (FLOMAX) 0.4 mg Take 1 capsule by mouth daily at bedtime. hydroCHLOROthiazide 25 mg tablet Take 1 tablet by mouth once daily. predniSONE (DELTASONE) 10 mg tablet Take 10 mg by mouth as needed. albuterol HFA (VENTOLIN HFA) 90 mcg/actuation inhaler Inhale 2 Puffs as instructed every 4 hours as needed for wheezing/shortness of breath. (Patient not taking: Reported on 05/30/2024) fluticasone (FLONASE) 50 mcg/actuation nasal spray Use 1 [place] in each nostril once daily. Rinse mouth after use. hydroxychloroquine (PLAQUENIL) 200 mg tablet Take 200 mg by mouth once daily. No current facility-administered medications for this visit. ALLERGIES: ALLERGIES Allergen Reactions Simvastatin Intolerance myalgias PAST MEDICAL HISTORY Diagnosis Date Aortic stenosis mild BPH associated with nocturia Hyperglycemia Hyperlipidemia Hypertension IMPOTENCE, ORGANIC ORIGN Kidney congenitally absent, right L-S radiculopathy right leg, Stenosis on lumbar MRI Obesity Personal history of colonic polyps PAST SURGICAL HISTORY Procedure Laterality Date APPENDECTOMY COLONOSCOPY 10/05/2018 COLONOSCOPY FLX DX W/COLLJ SPEC WHEN PFRMD 09/05/13 normal colon - prior polyps 5 year follow up COLSC FLX W/RMVL OF TUMOR POLYP LESION SNARE TQ 01/20/2005 COLSC FLX W/RMVL OF TUMOR POLYP LESION SNARE TQ 06/13/10 polyps cecum and 45cm, tubular adenomas RPR 1ST INGUN HRNA AGE 5 YRS/> REDUCIBLE Hernia repair, inguinal bilateral RX RIB FRACTURE W BARREL DRUM CUTTER FIXATN TONSILLECTOMY PRIMARY/SECONDARY <AGE 12 Tonsillectomy FAMILY HISTORY Problem Relation Age of Onset Diabetes Father Social History Tobacco Use Smoking status: Never Smokeless tobacco: Never Vaping Use Vaping status: Never Used Substance Use Topics Alcohol use: Not Currently Drug use: Never Reviewed current medications, allergies, past medical history, surgical history, family history and social history today. REVIEW OF SYSTEMS All other reviewed and negative other than HPI. HEALTH MAINTENANCE: Reviewed health maintenance issues today and recommended the following in detail. BP Controlled (<130/80) Never done DTaP,Tdap,Td Vaccine(1 - Tdap) due on 2011 Influenza Vaccine(1) -done., Covid-19 Vaccine(2023- season) due on 03/12/2024 Advance Directive Discussion -daughter is his dpoa VITALS: BP 132/78 Pulse 77 Wt 108 kg (238 lb) SpO2 95% BMI 37.28 kg/m Last 4 Encounter Wt Readings: Date: Wt: 05/30/2024 111.6 kg (246 lb) 02/11/2024 107.5 kg (237 lb) 11/19/2023 108.4 kg (239 lb) 10/11/2023 108.9 kg (240 lb) PHYSICAL EXAMINATION: General appearance: Well appearing, alert, in no acute distress, well-hydrated, well nourished. Skin: Skin color, texture, turgor normal, no suspicious rashes or lesions Head: Normocephalic, no masses, lesions, tenderness or abnormalities Lungs: Lungs clear to auscultation. No wheezing, rhonchi, rales Heart: RRR , murmur unchanged. , gallop, or rubs. No ectopy Abdomen: Normal abdominal exam, Abdomen soft, non-tender. Bowel sounds normal. No masses, organomegaly Extremities: No deformities, edema, skin discoloration, clubbing or cyanosis. Good capillary refill. ASSESSMENT/PLAN: 1. Hyperlipidemia, unspecified hyperlipidemia type - ICD9: 272.4, ICD10: E78.5 (primary diagnosis) - Controlled - Continue current medications 2. Essential hypertension, benign - ICD9: 401.1, ICD10: I10 - Controlled - Continue current medications 3. Aortic valve stenosis, etiology of cardiac valve disease unspecified - ICD9: 424.1, ICD10: I35.0 - stable. Per cardiology. 4. Other proteinuria - ICD9: 791.0, ICD10: R80 Per nephrology. Keep bp stable. 5. Inflammatory polyarthritis (HCC) - ICD9: 714.9, ICD10: M06.4 - doing well. Meds are working well. Seeing rheumatology. 6. Varicose veins of both legs with edema - ICD9: 454.8, ICD10: I83.893 - has been good. Wearing compression socks. 7. Prediabetes - ICD9: 790.29, ICD10: R73.03 - stable. 8. Obesity, Class II, BMI 35-39.9 - ICD9: 278.00, ICD10: E66.812 - monitor weight. 9. Family history of colon cancer - ICD9: V16.0, ICD10: Z80.0 Last was 5 years ago,. Since last time. His son has colon ca. Given the anemia he would like to have colonoscopy. - CONSULT TO GENERAL SURGERY 10. Anemia, unspecified type - ICD9: 285.9, ICD10: D64.9 - COMPLETE BLOOD COUNT AND DIFFERENTIAL - IRON AND TIBC - VITAMIN B12 - FOLATE, SERUM - FERRITIN - CONSULT TO GENERAL SURGERY Miguelangel Courtney MD documented in this encounter [facility] 09-12-2024 Note HNO ID: [id number] Author: RODDY FARNSWORTH MA Service: ? Author Type: Corporate Counselor Type: Progress Notes Filed: 09/12/2024 11:08 Note Text: POPULATION HEALTH NAVIGATION OUTREACH Action/FYI Pt is due for wellness and flu shot Spoke with patient he was on the road asked if I would send him a mychart Reason for Outreach Care Gap/HCC or Scheduling Wellness Visits Care Gaps due: Medicare Annual Wellness Visit Flu Vaccine Patient Contacted: Spoke to patient/parent/or legal guardian Patient identified by name and : Yes Care Gap/HCC/Scheduling Wellness actions taken: Patient declined: Patient requested call back from navigator/ will call navigator back Navigation Signature: Roddy Farnsworth MA September 12, 2024 11:07 AM [facility] 09-12-2024 History of Present illness Narrative POPULATION HEALTH NAVIGATION OUTREACH Action/FYI Pt is due for wellness and flu shot Spoke with patient he was on the road asked if I would send him a mychart Reason for Outreach Care Gap/HCC or Scheduling Wellness Visits Care Gaps due: Medicare Annual Wellness Visit Flu Vaccine Patient Contacted: Spoke to patient/parent/or legal guardian Patient identified by name and : Yes Care Gap/HCC/Scheduling Wellness actions taken: Patient declined: Patient requested call back from navigator/ will call navigator back Navigation Signature: Roddy Farnsworth MA September 12, 2024 11:07 AM documented in this encounter [facility] 09-12-2024 Note Patient Outreach (NE TNAV) GORAN GABRIEL ([id number]) 1945 Date Time Provider Department 09/12/24 RODDY FARNSWORTH During your visit today, we recorded the following information about you: Roddy Farnsworth MA 09/12/2024 11:08 AM Signed POPULATION HEALTH NAVIGATION OUTREACH Action/FYI Pt is due for wellness and flu shot Spoke with patient he was on the road asked if I would send him a mychart Reason for Outreach Care Gap/HCC or Scheduling Wellness Visits Care Gaps due: Medicare Annual Wellness Visit Flu Vaccine Patient Contacted: Spoke to patient/parent/or legal guardian Patient identified by name and : Yes Care Gap/HCC/Scheduling Wellness actions taken: Patient declined: Patient requested call back from navigator/ will call navigator back Navigation Signature: Roddy Farnsworth MA September 12, 2024 11:07 AM Allergies As of Date: 09/12/2024 Noted Allergy Reaction SIMVASTATIN 04/23/2016 5 - Intolerance Comments: myalgias Date Reviewed: 05/30/2024 Reviewed by: Kimmy Goodwin MA - Fully Assessed Reason for Visit: Population Health Navigation Outreach [3910] Cmt: Rodríguez high risk attempt # 1 Prescriptions as of 09/12/2024 - atorvastatin (LIPITOR) 20 mg tablet Take 1 tablet by mouth once daily. - amLODIPine (NORVASC) 5 mg tablet Take 1 tablet by mouth once daily. - losartan (COZAAR) 100 mg tablet Take 1 tablet by mouth once daily. - metoprolol succinate ER (TOPROL XL) 25 mg 24 hr tablet Take 1 tablet by mouth once daily. - tamsulosin (FLOMAX) 0.4 mg Take 1 capsule by mouth daily at bedtime. - hydroCHLOROthiazide 25 mg tablet Take 1 tablet by mouth once daily. - predniSONE (DELTASONE) 10 mg tablet Take 10 mg by mouth as needed. - albuterol HFA (VENTOLIN HFA) 90 mcg/actuation inhaler Inhale 2 Puffs as instructed every 4 hours as needed for wheezing/shortness of breath. - fluticasone (FLONASE) 50 mcg/actuation nasal spray Use 1 [place] in each nostril once daily. Rinse mouth after use. - hydroxychloroquine (PLAQUENIL) 200 mg tablet Take 200 mg by mouth once daily. Problem List As Of Date 09/12/2024 Noted Resolved Hyperlipidemia [E78.5] Essential hypertension, benign [I10] Personal history of colonic polyps [Z86.0100] IMPOTENCE, ORGANIC ORIGN [N52.9] 06/09/2006 Pain in joint, shoulder region [M25.519] 06/21/2006 09/26/2014 Kidney congenitally absent, 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] 05/21/2012 L-S radiculopathy [M54.17] 05/21/2012 05/14/2022 Left knee sprain [S83.92XA] 12/09/2012 09/26/2014 Abnormal glucose [R73.09] 02/13/2013 10/30/2020 Sciatica [M54.30] 02/13/2013 10/29/2016 Obesity [E66.9] 02/13/2013 05/14/2022 Lumbar stenosis [M48.061] 09/26/2014 Aortic valve stenosis [I35.0] 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, M19.*02/24/2017 10/30/2020 Left hip pain [M25.552] 02/24/2017 01/16/2019 Cellulitis of right hand [L03.113] 11/28/2018 12/01/2018 Neck pain [M54.2] 11/28/2018 01/16/2019 Acute deep vein thrombosis (DVT) of femoral vei*01/13/2019 10/30/2020 Acute deep vein thrombosis (DVT) of distal end *01/16/2019 02/17/2019 Varicose veins of both legs with edema [I83.893]01/16/2019 Screening for ischemic heart disease [Z13.6] 01/16/2019 05/14/2022 History of cellulitis [Z87.2] 01/16/2019 05/07/2021 Other proteinuria [R80.8] 07/21/2019 Prediabetes [R73.03] 05/07/2021 Inflammatory polyarthritis (HCC) [M06.4] 05/07/2021 Obesity, Class II, BMI 35-39.9 [E66.812] 08/04/2021 Aortic valve disorder [I35.9] 08/04/2021 05/14/2022 Cellulitis of foot [L03.119] 11/11/2022 05/26/2023 Hypertension [I10] 05/26/2023 05/26/2023 Diagnosed: 05/26/2023 Right inguinal pain [R10.31] 05/26/2023 05/26/2023 Diagnosed: 05/26/2023 Encounter Status:Closed by RODDY KAUR on 09/12/24 [facility] 09-04-2024 Telephone encounter Note The patient has been identified by name and date of : Yes Caregiver verified no other encounters exist for this prescription request: Yes Caregiver confirmed with patient/requestor that no other refills are due, in the near future, with this provider at this time: Yes The last office visit in the department: 02/11/2024 Does the patient have a future office visit with this provider/department: Yes 09/25/2024 Requested Prescriptions Pending Prescriptions Disp Refills atorvastatin (LIPITOR) 20 mg tablet 90 tablet 3 Sig: Take 1 tablet by mouth once daily. amLODIPine (NORVASC) 5 mg tablet 90 tablet 3 Sig: Take 1 tablet by mouth once daily. losartan (COZAAR) 100 mg tablet 90 tablet 3 Sig: Take 1 tablet by mouth once daily. Yarely Mcneill LPN September 04, 2024 10:57 AM [facility] 09-04-2024 Miscellaneous Notes The patient has been identified by name and date of : Yes Caregiver verified no other encounters exist for this prescription request: Yes Caregiver confirmed with patient/requestor that no other refills are due, in the near future, with this provider at this time: Yes The last office visit in the department: 02/11/2024 Does the patient have a future office visit with this provider/department: Yes 09/25/2024 Requested Prescriptions Pending Prescriptions Disp Refills atorvastatin (LIPITOR) 20 mg tablet 90 tablet 3 Sig: Take 1 tablet by mouth once daily. amLODIPine (NORVASC) 5 mg tablet 90 tablet 3 Sig: Take 1 tablet by mouth once daily. losartan (COZAAR) 100 mg tablet 90 tablet 3 Sig: Take 1 tablet by mouth once daily. Yarely Mcneill LPN September 04, 2024 10:57 AM documented in this encounter [facility] 08-07-2024 Telephone encounter Note Prescription Refill Information The patient has been identified by name and date of : Yes Caregiver verified no other encounters exist for this prescription request: Yes Caregiver confirmed with patient/requestor that no other refills are due, in the near future, with this provider at this time: Yes The last office visit in the department: Does the patient have a future office visit with this provider/department: Yes Requested Prescriptions Pending Prescriptions Disp Refills metoprolol succinate ER (TOPROL XL) 25 mg 24 hr tablet 90 tablet 3 Sig: Take 1 tablet by mouth once daily. Bren Rodgers August 07, 2024 1:15 PM [facility] 08-07-2024 Miscellaneous Notes Prescription Refill Information The patient has been identified by name and date of : Yes Caregiver verified no other encounters exist for this prescription request: Yes Caregiver confirmed with patient/requestor that no other refills are due, in the near future, with this provider at this time: Yes The last office visit in the department: Does the patient have a future office visit with this provider/department: Yes Requested Prescriptions Pending Prescriptions Disp Refills metoprolol succinate ER (TOPROL XL) 25 mg 24 hr tablet 90 tablet 3 Sig: Take 1 tablet by mouth once daily. Bren Rodgers August 07, 2024 1:15 PM documented in this encounter [facility] 05-30-2024 Instructions Stephon Negron PA-C - 05/30/2024 10:22 AM EST > 1 year Appt w/ B. JOSE A Negron, JOVITA TOLENTINO with PSA prior documented in this encounter [facility] 05-30-2024 Note HNO ID: [id number] Author: STEPHON NEGRON PA-C Service: ? Author Type: Physician Rn Complex Care Type: Progress Notes Filed: 05/30/2024 10:42 Note Text: [facility] PATIENT INFO: Goran Fraser Harvey [facility]# [id number] PCP: Miguelangel Courtney MD CHIEF COMPLAINT: BPH annual Follow up HPI: This is a 78 year old male with a congenital Solitary Kidney, who has BPH with Nocturia still at 2-3 times , but at this time he is not bothered by it still the same but not interested in treatment, he will let us know if that changes. Continues following with Dr. Cerrato ( Nephrology) for proteinuria PSA - 0.66 VOIDING SYMPTOMS: NTF: 2 time ALLERGY: ALLERGIES Allergen Reactions Simvastatin Intolerance myalgias MEDICATIONS: Current Outpatient Medications Medication Sig Dispense Refill tamsulosin (FLOMAX) 0.4 mg Take 1 capsule by mouth daily at bedtime. 90 capsule 3 hydroCHLOROthiazide 25 mg tablet Take 1 tablet by mouth once daily. 90 tablet 3 losartan (COZAAR) 100 mg tablet Take 1 tablet by mouth once daily. 90 tablet 3 atorvastatin (LIPITOR) 20 mg tablet Take 1 tablet by mouth once daily. 90 tablet 3 amLODIPine (NORVASC) 5 mg tablet Take 1 tablet by mouth once daily. 90 tablet 3 metoprolol succinate ER (TOPROL XL) 25 mg 24 hr tablet Take 1 tablet by mouth once daily. 90 tablet 3 predniSONE (DELTASONE) 10 mg tablet Take 10 mg by mouth as needed. fluticasone (FLONASE) 50 mcg/actuation nasal spray Use 1 [place] in each nostril once daily. Rinse mouth after use. 3 Bottle 3 hydroxychloroquine (PLAQUENIL) 200 mg tablet Take 200 mg by mouth once daily. albuterol HFA (VENTOLIN HFA) 90 mcg/actuation inhaler Inhale 2 Puffs as instructed every 4 hours as needed for wheezing/shortness of breath. (Patient not taking: Reported on 05/30/2024) 1 Each 1 No current facility-administered medications for this visit. 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 No acute distress No change in ROS since last urology visit Physical Examination: Blood pressure 136/82, pulse 80, weight 111.6 kg (246 lb), SpO2 94%. General Appearance/ Constitutional: Well developed, well nourished, and in no apparent distress LABS: Results for orders placed or performed in visit on 05/30/24 UA DIP, URINE (POC) Result Value Ref Range GLUCOSE UA (POCT) Negative Negative mg/dL BILIRUBIN UA (POCT) Negative Negative KETONE UA (POCT) Negative Negative mg/dL SPECIFIC GRAVITY UA (POCT) 1.015 1.005 - 1.030 HEMOGLOBIN/BLOOD UA (POCT) Negative Negative PH UA (POCT) 6.5 4.5 - 8.0 PROTEIN UA (POCT) Negative Negative mg/dL UROBILINOGEN UA (POCT) 0.2 Normal E.U./dL NITRITE UA (POCT) Negative Negative LEUKOCYTES UA (POCT) Negative Negative COLOR UA (POCT) Yellow CLARITY UA (POCT) Clear Creatinine Date Value Ref Range Status 11/16/2023 1.06 0.73 - 1.22 mg/dL Final 05/26/2023 1.02 0.73 - 1.22 mg/dL Final 12/02/2022 1.07 0.73 - 1.22 mg/dL Final 11/10/2022 1.23 (H) 0.73 - 1.22 mg/dL Final IMPRESSION / PLAN: > History of BPH w LUTS > PSA 0.66 > Flomax 0.4 mg > Hx of Solitary Kidney > Proteinuria > Following by Dr. Cerrato - Nephrology > 1 year Appt w/ JOSE A Kraus MT, PA-C with PSA prior JOSE A Whelan MT, JOVITA [facility] 05-30-2024 History of Present illness Narrative Images from the original note were not included. [facility] PATIENT INFO: Goran Gabriel [facility]# [id number] PCP: Miguelangel Courtney MD CHIEF COMPLAINT: BPH annual Follow up HPI: This is a 78 year old male with a congenital Solitary Kidney, who has BPH with Nocturia still at 2-3 times , but at this time he is not bothered by it still the same but not interested in treatment, he will let us know if that changes. Continues following with Dr. Cerrato ( Nephrology) for proteinuria PSA - 0.66 VOIDING SYMPTOMS: NTF: 2 time ALLERGY: ALLERGIES Allergen Reactions Simvastatin Intolerance myalgias MEDICATIONS: Current Outpatient Medications Medication Sig Dispense Refill tamsulosin (FLOMAX) 0.4 mg Take 1 capsule by mouth daily at bedtime. 90 capsule 3 hydroCHLOROthiazide 25 mg tablet Take 1 tablet by mouth once daily. 90 tablet 3 losartan (COZAAR) 100 mg tablet Take 1 tablet by mouth once daily. 90 tablet 3 atorvastatin (LIPITOR) 20 mg tablet Take 1 tablet by mouth once daily. 90 tablet 3 amLODIPine (NORVASC) 5 mg tablet Take 1 tablet by mouth once daily. 90 tablet 3 metoprolol succinate ER (TOPROL XL) 25 mg 24 hr tablet Take 1 tablet by mouth once daily. 90 tablet 3 predniSONE (DELTASONE) 10 mg tablet Take 10 mg by mouth as needed. fluticasone (FLONASE) 50 mcg/actuation nasal spray Use 1 [place] in each nostril once daily. Rinse mouth after use. 3 Bottle 3 hydroxychloroquine (PLAQUENIL) 200 mg tablet Take 200 mg by mouth once daily. albuterol HFA (VENTOLIN HFA) 90 mcg/actuation inhaler Inhale 2 Puffs as instructed every 4 hours as needed for wheezing/shortness of breath. (Patient not taking: Reported on 05/30/2024) 1 Each 1 No current facility-administered medications for this visit. 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 No acute distress No change in ROS since last urology visit Physical Examination: Blood pressure 136/82, pulse 80, weight 111.6 kg (246 lb), SpO2 94%. General Appearance/ Constitutional: Well developed, well nourished, and in no apparent distress LABS: Results for orders placed or performed in visit on 05/30/24 UA DIP, URINE (POC) Result Value Ref Range GLUCOSE UA (POCT) Negative Negative mg/dL BILIRUBIN UA (POCT) Negative Negative KETONE UA (POCT) Negative Negative mg/dL SPECIFIC GRAVITY UA (POCT) 1.015 1.005 - 1.030 HEMOGLOBIN/BLOOD UA (POCT) Negative Negative PH UA (POCT) 6.5 4.5 - 8.0 PROTEIN UA (POCT) Negative Negative mg/dL UROBILINOGEN UA (POCT) 0.2 Normal E.U./dL NITRITE UA (POCT) Negative Negative LEUKOCYTES UA (POCT) Negative Negative COLOR UA (POCT) Yellow CLARITY UA (POCT) Clear Creatinine Date Value Ref Range Status 11/16/2023 1.06 0.73 - 1.22 mg/dL Final 05/26/2023 1.02 0.73 - 1.22 mg/dL Final 12/02/2022 1.07 0.73 - 1.22 mg/dL Final 11/10/2022 1.23 (H) 0.73 - 1.22 mg/dL Final IMPRESSION / PLAN: > History of BPH w LUTS > PSA 0.66 > Flomax 0.4 mg > Hx of Solitary Kidney > Proteinuria > Following by Dr. Cerrato - Nephrology > 1 year Appt w/ BJOSE A Faith MT, PA-C with PSA prior JOSE A Whelan MT, PA-C Patient's post-void bladder scan: 81 ML. Kimmy Goodwin MA documented in this encounter [facility] 05-30-2024 Note HNO ID: [id number] Author: KIMMY GOODWIN MA Service: ? Author Type: Corporate Counselor Type: Progress Notes Filed: 05/30/2024 10:42 Note Text: Patient's post-void bladder scan: 81 ML. Kimmy Goodwin MA [facility] 03-23-2024 Telephone encounter Note Prescription Refill Information The patient has been identified by name and date of : Yes Caregiver verified no other encounters exist for this prescription request: Yes Caregiver confirmed with patient/requestor that no other refills are due, in the near future, with this provider at this time: Yes The last office visit in the department: 02-11-24 Does the patient have a future office visit with this provider/department: Yes Requested Prescriptions Pending Prescriptions Disp Refills tamsulosin (FLOMAX) 0.4 mg 90 capsule 3 Sig: Take 1 capsule by mouth daily at bedtime. Julisa Crocker March 23, 2024 12:48 PM [facility] 03-23-2024 Miscellaneous Notes Prescription Refill Information The patient has been identified by name and date of : Yes Caregiver verified no other encounters exist for this prescription request: Yes Caregiver confirmed with patient/requestor that no other refills are due, in the near future, with this provider at this time: Yes The last office visit in the department: 02-11-24 Does the patient have a future office visit with this provider/department: Yes Requested Prescriptions Pending Prescriptions Disp Refills tamsulosin (FLOMAX) 0.4 mg 90 capsule 3 Sig: Take 1 capsule by mouth daily at bedtime. Julisa Crocker March 23, 2024 12:48 PM documented in this encounter [facility] 03-16-2024 Telephone encounter Note Prescription Refill Information The patient has been identified by name and date of : Yes Caregiver verified no other encounters exist for this prescription request: Yes Caregiver confirmed with patient/requestor that no other refills are due, in the near future, with this provider at this time: Yes The last office visit in the department: 02/11/2024 Does the patient have a future office visit with this provider/department: Yes Requested Prescriptions Pending Prescriptions Disp Refills hydroCHLOROthiazide 25 mg tablet 90 tablet 3 Sig: Take 1 tablet by mouth once daily. Marifer Pa March 16, 2024 9:43 AM [facility] 03-16-2024 Miscellaneous Notes Prescription Refill Information The patient has been identified by name and date of : Yes Caregiver verified no other encounters exist for this prescription request: Yes Caregiver confirmed with patient/requestor that no other refills are due, in the near future, with this provider at this time: Yes The last office visit in the department: 02/11/2024 Does the patient have a future office visit with this provider/department: Yes Requested Prescriptions Pending Prescriptions Disp Refills hydroCHLOROthiazide 25 mg tablet 90 tablet 3 Sig: Take 1 tablet by mouth once daily. Marifer Pa March 16, 2024 9:43 AM documented in this encounter [facility] 02-11-2024 Miguelangel Cisneros MD - 02/11/2024 11:18 AM EDT Try josephine or claritin. documented in this encounter [facility] 02-11-2024 History of Present illness Narrative Patient presents with: Follow Up HPI: Patient presents today for office visit for follow up. HTN: Patient is compliant with meds Yes Monitors bp at home: Yes. Denies side effects: Yes. Chest pain: No. Dyspnea: No. Edema: No. Palpitations: No. Syncope: No. Headache: No. Dizziness: No. Sugars are stable. Discussed limiting diet and weight. Declines metformin. Tired feet bothersome to stand for a long period of time Allergies: Told him to try Claritin or Josephine. Following with urology, nephrology and cardiology. Also seeing rheumatology Latest Ref Rng 02/04/2024 Hemoglobin A1C 4.3 - 5.6 % 6.5 (H) Estimated Average Glucose mg/dL 140 Legend: (H) High MEDICATIONS: Current Outpatient Medications Medication Sig losartan (COZAAR) 100 mg tablet Take 1 tablet by mouth once daily. atorvastatin (LIPITOR) 20 mg tablet Take 1 tablet by mouth once daily. amLODIPine (NORVASC) 5 mg tablet Take 1 tablet by mouth once daily. metoprolol succinate ER (TOPROL XL) 25 mg 24 hr tablet Take 1 tablet by mouth once daily. predniSONE (DELTASONE) 10 mg tablet Take 10 mg by mouth as needed. albuterol HFA (VENTOLIN HFA) 90 mcg/actuation inhaler Inhale 2 Puffs as instructed every 4 hours as needed for wheezing/shortness of breath. hydroCHLOROthiazide 25 mg tablet Take 1 tablet by mouth once daily. tamsulosin (FLOMAX) 0.4 mg Take 1 capsule by mouth daily at bedtime. fluticasone (FLONASE) 50 mcg/actuation nasal spray Use 1 [place] in each nostril once daily. Rinse mouth after use. hydroxychloroquine (PLAQUENIL) 200 mg tablet Take 200 mg by mouth once daily. No current facility-administered medications for this visit. ALLERGIES: ALLERGIES Allergen Reactions Simvastatin Intolerance myalgias PAST MEDICAL HISTORY No date: Aortic stenosis Comment: mild No date: BPH associated with nocturia No date: Hyperglycemia No date: Hyperlipidemia No date: Hypertension No date: IMPOTENCE, ORGANIC ORIGN No date: Kidney congenitally absent, right No date: L-S radiculopathy Comment: right leg, Stenosis on lumbar MRI No date: Obesity No date: Personal history of colonic polyps PAST SURGICAL HISTORY No date: APPENDECTOMY 10/05/2018: COLONOSCOPY 09/05/13: COLONOSCOPY FLX DX W/COLLJ SPEC WHEN PFRMD Comment: normal colon - prior polyps 5 year follow up 01/20/2005: COLSC FLX W/RMVL OF TUMOR POLYP LESION SNARE TQ 06/13/10: COLSC FLX W/RMVL OF TUMOR POLYP LESION SNARE TQ Comment: polyps cecum and 45cm, tubular adenomas No date: RPR 1ST INGUN HRNA AGE 5 YRS/> REDUCIBLE Comment: Hernia repair, inguinal bilateral No date: RX RIB FRACTURE W BARREL DRUM CUTTER FIXATN No date: TONSILLECTOMY PRIMARY/SECONDARY <AGE 12 Comment: Tonsillectomy FAMILY HISTORY Problem Relation Age of Onset Diabetes Father Social History Tobacco Use Smoking status: Never Smokeless tobacco: Never Vaping Use Vaping Use: Never used Substance Use Topics Alcohol use: Not Currently Drug use: Never Reviewed current medications, allergies, past medical history, surgical history, family history and social history today. REVIEW OF SYSTEMS No gi or gu issues. All other reviewed and negative other than HPI. HEALTH MAINTENANCE: Reviewed health maintenance issues today and recommended the following in detail. BP Controlled (<130/80) Never done Covid-19 Vaccine(2022- season) due on 11/13/2023 VITALS: BP 108/62 Pulse 81 Wt 107.5 kg (237 lb) SpO2 93% BMI 37.12 kg/m Last 4 Encounter Wt Readings: Date: Wt: 11/19/2023 108.4 kg (239 lb) 10/11/2023 108.9 kg (240 lb) 05/26/2023 110.2 kg (243 lb) 05/25/2023 109.9 kg (242 lb 3.2 oz) PHYSICAL EXAMINATION: General appearance: Well appearing, alert, in no acute distress, well-hydrated, well nourished. Skin: Skin color, texture, turgor normal, no suspicious rashes or lesions Head: Normocephalic, no masses, lesions, tenderness or abnormalities Neck: Supple, no adenopathy; thyroid symmetric, normal size, no bruits Lungs: Lungs clear to auscultation. No wheezing, rhonchi, rales Heart: RRR, murmur unchanged. Abdomen: Normal abdominal exam, Abdomen soft, non-tender. Bowel sounds normal. No masses, organomegaly Extremities: No deformities, edema, skin discoloration, clubbing or cyanosis. Good capillary refill. , No cords. No calf tenderness. Alex's sign negative., does have some varicosites-asymptomatic. ASSESSMENT/PLAN: 1. Essential hypertension, benign - ICD9: 401.1, ICD10: I10 (primary diagnosis) - Controlled - Continue current medications - COMPLETE BLOOD COUNT AND DIFFERENTIAL - COMPREHENSIVE METABOLIC PANEL - LIPID PANEL BASIC 2. Hyperlipidemia, unspecified hyperlipidemia type - ICD9: 272.4, ICD10: E78.5 - Controlled - Continue current medications - Counseled on healthy diet and regular exercise 3. Aortic valve stenosis, etiology of cardiac valve disease unspecified - ICD9: 424.1, ICD10: I35.0 - per cardiology. Has been stable. 4. Other proteinuria - ICD9: 791.0, ICD10: R80.8 - per nephrology, stable. 5. Inflammatory polyarthritis (HCC) - ICD9: 714.9, ICD10: M06.4 - per rheumatology, is stable. 6. Prediabetes - ICD9: 790.29, ICD10: R73.03 - continue to follow and watch diet. - HEMOGLOBIN A1C 7. Obesity, Class II, BMI 35-39.9 - ICD9: 278.00, ICD10: E66.9 - discussed diet and portion control. Miguelangel Courtney MD documented in this encounter [facility] 11-19-2023 History of Present illness Narrative Patient presents with: 6 Month Exam HPI: Patient presents today for office visit for follow up. HTN: Continues on Losartan 100 mg daily Metoprolol 25 mg daily HCTZ 25 mg daily Amlodipine 5 mg daily Monitors BP Stable Denies chest pain and shortness of breath Denies headaches and dizziness Denies palpitations and syncope Some edema to B/L feet periodically. Hx of arthritis. Dr. Pittman Rx'd prednisone which helped. HLD: Continues on Atorvastatin 20 mg daily No myalgias No urinary issues. Sees urology Continues on Tamsulosin A1c is up a little. Has used some steroids as above. Discussed diet in detail and weight loss. Will monitor. Discussed adding meds if continues. Discussed limiting calories and starches. Following with urology. Taking tamsulosin. Seeing Dr. Cerrato and Dr Oreilly. Latest Ref Rng 11/16/2023 WBC 3.70 - 11.00 k/uL 10.63 RBC 4.20 - 6.00 m/uL 4.33 Hemoglobin 13.0 - 17.0 g/dL 13.4 Hematocrit 39.0 - 51.0 % 41.4 MCV 80.0 - 100.0 fL 95.6 MCH 26.0 - 34.0 pg 30.9 MCHC 30.5 - 36.0 g/dL 32.4 RDW-CV 11.5 - 15.0 % 12.9 Platelet Count 150 - 400 k/uL 224 MPV 9.0 - 12.7 fL 11.4 Neut% % 72.7 Abs Neut (ANC) 1.45 - 7.50 k/uL 7.73 (H) Lymph% % 16.6 Abs Lymph 1.00 - 4.00 k/uL 1.76 [place]% % 8.4 Abs [place] <0.87 k/uL 0.89 (H) Eosin% % 1.1 Abs Eosin <0.46 k/uL 0.12 Baso% % 0.4 Abs Baso <0.11 k/uL 0.04 Immature Gran % % 0.8 IMMATURE GRANS (ABS) <0.10 k/uL 0.09 NRBC /100 WBC 0.0 Absolute nRBC <0.01 k/uL <0.01 DTYPE Auto Glucose 74 - 99 mg/dL 111 (H) BUN 9 - 24 mg/dL 21 Creatinine 0.73 - 1.22 mg/dL 1.06 Sodium 136 - 144 mmol/L 141 Potassium 3.7 - 5.1 mmol/L 4.2 Chloride 97 - 105 mmol/L 101 CO2 22 - 30 mmol/L 29 Anion Gap 9 - 18 mmol/L 11 Calcium 8.5 - 10.2 mg/dL 9.9 eGFR >=60 mL/min/1.73m 72 Cholesterol, Total <200 mg/dL 150 Triglyceride <150 mg/dL 88 HDL Cholesterol >39 mg/dL 58 Non HDL Cholesterol <130 mg/dL 92 Fasting Time hrs 12 VLDL Cholesterol <30 mg/dL 18 TC:HDL Ratio <5.10 2.59 LDL Cholesterol <100 mg/dL 74 LDL:HDL Ratio <2.54 1.28 Iron 41 - 186 ug/dL 96 TIBC 232 - 386 ug/dL 281 Transferrin Saturation 15.0 - 57.0 % 34.2 Hemoglobin A1C 4.3 - 5.6 % 6.5 (H) Estimated Average Glucose mg/dL 140 Vitamin B12 232 - 1,245 pg/mL 500 Folate >4.7 ng/mL 11.1 Ferritin 30.3 - 565.7 ng/mL 478.0 Legend: (H) High MEDICATIONS: Current Outpatient Medications Medication Sig losartan (COZAAR) 100 mg tablet Take 1 tablet by mouth once daily. atorvastatin (LIPITOR) 20 mg tablet Take 1 tablet by mouth once daily. amLODIPine (NORVASC) 5 mg tablet Take 1 tablet by mouth once daily. metoprolol succinate ER (TOPROL XL) 25 mg 24 hr tablet Take 1 tablet by mouth once daily. predniSONE (DELTASONE) 10 mg tablet Take 10 mg by mouth as needed. albuterol HFA (VENTOLIN HFA) 90 mcg/actuation inhaler Inhale 2 Puffs as instructed every 4 hours as needed for wheezing/shortness of breath. hydroCHLOROthiazide 25 mg tablet Take 1 tablet by mouth once daily. tamsulosin (FLOMAX) 0.4 mg Take 1 capsule by mouth daily at bedtime. fluticasone (FLONASE) 50 mcg/actuation nasal spray Use 1 [place] in each nostril once daily. Rinse mouth after use. hydroxychloroquine (PLAQUENIL) 200 mg tablet Take 200 mg by mouth once daily. No current facility-administered medications for this visit. ALLERGIES: ALLERGIES Allergen Reactions Simvastatin Intolerance myalgias PAST MEDICAL HISTORY Diagnosis Date Aortic stenosis mild BPH associated with nocturia Hyperglycemia Hyperlipidemia Hypertension IMPOTENCE, ORGANIC ORIGN Kidney congenitally absent, right L-S radiculopathy right leg, Stenosis on lumbar MRI Obesity Personal history of colonic polyps PAST SURGICAL HISTORY Procedure Laterality Date APPENDECTOMY COLONOSCOPY 10/05/2018 COLONOSCOPY FLX DX W/COLLJ SPEC WHEN PFRMD 09/05/13 normal colon - prior polyps 5 year follow up COLSC FLX W/RMVL OF TUMOR POLYP LESION SNARE TQ 01/20/2005 COLSC FLX W/RMVL OF TUMOR POLYP LESION SNARE TQ 06/13/10 polyps cecum and 45cm, tubular adenomas RPR 1ST INGUN HRNA AGE 5 YRS/> REDUCIBLE Hernia repair, inguinal bilateral RX RIB FRACTURE W BARREL DRUM CUTTER FIXATN TONSILLECTOMY PRIMARY/SECONDARY <AGE 12 Tonsillectomy FAMILY HISTORY Problem Relation Age of Onset Diabetes Father Social History Tobacco Use Smoking status: Never Smokeless tobacco: Never Vaping Use Vaping Use: Never used Substance Use Topics Alcohol use: Not Currently Drug use: Never Reviewed current medications, allergies, past medical history, surgical history, family history and social history today. REVIEW OF SYSTEMS All other reviewed and negative other than HPI. HEALTH MAINTENANCE: Reviewed health maintenance issues today and recommended the following in detail. BP Controlled (<130/80) Never done Advance Directive Discussion-has a medical POA. His daughter is his surrogate. Behavioral Health Screening Never done Shingrix Vaccine(2 of 2) -just got in two weeks. Covid-19 Vaccine(2022- season) due on 11/13/2023 VITALS: BP 138/78 Pulse 80 Ht 170.2 cm (5' 7) Wt 108.4 kg (239 lb) SpO2 98% BMI 37.43 kg/m Last 4 Encounter Wt Readings: Date: Wt: 11/19/2023 108.4 kg (239 lb) 10/11/2023 108.9 kg (240 lb) 05/26/2023 110.2 kg (243 lb) 05/25/2023 109.9 kg (242 lb 3.2 oz) PHYSICAL EXAMINATION: General appearance: Well appearing, alert, in no acute distress, well-hydrated, well nourished. Skin: Skin color, texture, turgor normal, no suspicious rashes or lesions Head: Normocephalic, no masses, lesions, tenderness or abnormalities Neck: Supple, no adenopathy; thyroid symmetric, normal size, no bruits Lungs: Lungs clear to auscultation. No wheezing, rhonchi, rales Heart: RRR without murmur, gallop, or rubs. No ectopy Abdomen: Normal abdominal exam, Abdomen soft, non-tender. Bowel sounds normal. No masses, organomegaly Extremities: No deformities, edema, skin discoloration, clubbing or cyanosis. Good capillary refill. ASSESSMENT/PLAN: 1. Essential hypertension, benign - ICD9: 401.1, ICD10: I10 (primary diagnosis) - Controlled - Continue current medications 2. Hyperlipidemia, unspecified hyperlipidemia type - ICD9: 272.4, ICD10: E78.5 - Controlled - Continue current medications 3. Aortic valve stenosis, etiology of cardiac valve disease unspecified - ICD9: 424.1, ICD10: I35.0 - per cardiology. 4. Inflammatory polyarthritis (HCC) - ICD9: 714.9, ICD10: M06.4 - per rheum. 5. Other proteinuria - ICD9: 791.0, ICD10: R80.8 - per nephrology 6. Prediabetes - ICD9: 790.29, ICD10: R73.03 - HEMOGLOBIN A1C 7. Obesity, Class II, BMI 35-39.9 - ICD9: 278.00, ICD10: E66.9 - work on weight loss. Miguelangel Courtney MD RTO in three months or prn documented in this encounter [facility] 11-15-2023 Miscellaneous Notes TC to patient who verbalized understanding of providers message below. No further questions at this time. SUGAR Waldrop Orders placed. He was slightly anemic on Dr Pittman's labs. I am rechecking some anemia labs as well as lipid and a1c Patient calling he has appt with PCP on Wednesday and asking if he needs to get lab work prior to his appt? He had labs on 11/[address] Pittman, CMP and CBC. Pending order if wanted, needs diagnosis. Can leave a message patient will be mowing lawn. Please advise documented in this encounter [facility] 11-15-2023 Telephone encounter Note TC to patient who verbalized understanding of providers message below. No further questions at this time. SUGAR Waldrop [facility] 11-15-2023 Telephone encounter Note Orders placed. He was slightly anemic on Dr Pittman's labs. I am rechecking some anemia labs as well as lipid and a1c [facility] 11-15-2023 Telephone encounter Note Patient calling he has appt with PCP on Wednesday and asking if he needs to get lab work prior to his appt? He had labs on 11/[address] Pittman, CMP and CBC. Pending order if wanted, needs diagnosis. Can leave a message patient will be mowing lawn. Please advise [facility] 10-26-2023 Miscellaneous Notes Patient has been identified by name and date of : Patient phones for refill(s): Requested Prescriptions Pending Prescriptions Disp Refills losartan (COZAAR) 100 mg tablet 90 tablet 3 Sig: Take 1 tablet by mouth once daily. Date of last office visit in primary care: 05/26/2023 Date of next office visit in primary care: 11/19/2023 Please advise. Thank you. Yarely Mcneill LPN. documented in this encounter [facility] 10-13-2023 Miscellaneous Notes Patient has been identified by name and date of : Yes, Provider Date Time Patient phones for refill(s): Requested Prescriptions Pending Prescriptions Disp Refills atorvastatin (LIPITOR) 20 mg tablet 90 tablet 3 Sig: Take 1 tablet by mouth once daily. Date of last office visit in primary care: 05/26/2023 Date of next office visit in primary care: 11/19/2023 Please advise. Thank you. Valerie Jones, RN. documented in this encounter [facility] 10-11-2023 History of Present illness Narrative Images from the original note were not included. Chema Oreilly MD Interventional Cardiology [address] [place] [address] [phone] Chief Complaint Patient presents with: Follow Up HISTORY OF PRESENT ILLNESS: Mr. Gabriel is a 78 year old male seen my office today for assessment management of aortic stenosis patient had a diagnosis of hypertensive heart disease and hyperlipidemia with asymptomatic moderate aortic stenosis He comes in today for follow-up he is asymptomatic denies chest pain or shortness of breath no syncope or presyncope no change of his symptoms compared to a year ago Echocardiography shows moderate aortic stenosis with a mean gradient of 12 mmHg dimensionless index of 0.36 with aortic valve area 1.27 cm the LVOT stroke-volume index is 26 mill per square meter which suggest low-flow low gradient aortic stenosis Despite the finding in the echocardiography patient is completely asymptomatic with no signs or symptoms of congestive heart failure he is due for repeat for echo this week Cardiac Risk Factors age (male over 45, female over 55), hyperlipidemia, obesity, hypertension, family history of CAD PAST MEDICAL HISTORY Diagnosis Date Aortic stenosis mild BPH associated with nocturia Hyperglycemia Hyperlipidemia Hypertension IMPOTENCE, ORGANIC ORIGN Kidney congenitally absent, right L-S radiculopathy right leg, Stenosis on lumbar MRI Obesity Personal history of colonic polyps PAST SURGICAL HISTORY Procedure Laterality Date APPENDECTOMY COLONOSCOPY 10/05/2018 COLONOSCOPY FLX DX W/COLLJ SPEC WHEN PFRMD 09/05/13 normal colon - prior polyps 5 year follow up COLSC FLX W/RMVL OF TUMOR POLYP LESION SNARE TQ 01/20/2005 COLSC FLX W/RMVL OF TUMOR POLYP LESION SNARE TQ 06/13/10 polyps cecum and 45cm, tubular adenomas RPR 1ST INGUN HRNA AGE 5 YRS/> REDUCIBLE Hernia repair, inguinal bilateral RX RIB FRACTURE W BARREL DRUM CUTTER FIXATN TONSILLECTOMY PRIMARY/SECONDARY <AGE 12 Tonsillectomy FAMILY HISTORY Problem Relation Age of Onset Diabetes Father Social History Tobacco Use Smoking status: Never Smokeless tobacco: Never Vaping Use Vaping Use: Never used Substance Use Topics Alcohol use: Not Currently Drug use: Never ALLERGIES Allergen Reactions Simvastatin Intolerance myalgias Medications: Current Outpatient Medications Medication Sig Dispense Refill amLODIPine (NORVASC) 5 mg tablet Take 1 tablet by mouth once daily. 90 tablet 3 metoprolol succinate ER (TOPROL XL) 25 mg 24 hr tablet Take 1 tablet by mouth once daily. 90 tablet 3 predniSONE (DELTASONE) 10 mg tablet Take 10 mg by mouth as needed. albuterol HFA (VENTOLIN HFA) 90 mcg/actuation inhaler Inhale 2 Puffs as instructed every 4 hours as needed for wheezing/shortness of breath. 1 Each 1 hydroCHLOROthiazide 25 mg tablet Take 1 tablet by mouth once daily. 90 tablet 3 tamsulosin (FLOMAX) 0.4 mg Take 1 capsule by mouth daily at bedtime. 90 capsule 3 atorvastatin (LIPITOR) 20 mg tablet Take 1 tablet by mouth once daily. 90 tablet 3 losartan (COZAAR) 100 mg tablet Take 1 tablet by mouth once daily. 90 tablet 3 fluticasone (FLONASE) 50 mcg/actuation nasal spray Use 1 [place] in each nostril once daily. Rinse mouth after use. 3 Bottle 3 hydroxychloroquine (PLAQUENIL) 200 mg tablet Take 200 mg by mouth once daily. Current Facility-Administered Medications Medication Dose Route Frequency Provider Last Rate Last Admin perflutren lipid microspheres 1.3 mL in NaCl (PF) 0.9% 10 mL injection (DEFINITY) INTRAVENOUS DIRECTED PRN Chema Oreilly MD sodium chloride 0.9 % (flush) 10 mL (BD POSIFLUSH) 10 mL INTRAVENOUS DIRECTED PRN Chema Oreilly MD Review of Systems Constitutional: Negative for chills, diaphoresis, fever, malaise/fatigue and weight loss. HENT: Negative for congestion, ear discharge, ear pain, hearing loss, nosebleeds, sinus pain, sore throat and tinnitus. Eyes: Negative for blurred vision, double vision, photophobia, pain, discharge and redness. Respiratory: Negative for cough, hemoptysis, sputum production, shortness of breath, wheezing and stridor. Cardiovascular: Negative for chest pain, palpitations, orthopnea, claudication, leg swelling and PND. Gastrointestinal: Negative for abdominal pain, blood in stool, constipation, diarrhea, heartburn, melena, nausea and vomiting. Genitourinary: Negative for dysuria, flank pain, frequency, hematuria and urgency. Musculoskeletal: Negative for back pain, falls, joint pain, myalgias and neck pain. Skin: Negative for itching and rash. Neurological: Negative for dizziness, tingling, tremors, sensory change, speech change, focal weakness, seizures, loss of consciousness, weakness and headaches. Endo/Heme/Allergies: Negative for environmental allergies and polydipsia. Does not bruise/bleed easily. Psychiatric/Behavioral: Negative for depression, hallucinations, memory loss, substance abuse and suicidal ideas. The patient is not nervous/anxious and does not have insomnia. Physical Examination: Vitals:BP 166/81 Pulse 82 Wt 240 lb (108.9kg) SpO2 95% BP w/Orthostatic Vitals Date and Time Orthostatic BP Orthostatic Pulse BP Pulse BP Position BP Site BP Cuff Size 10/11/23 0953 -- -- 166/81 82 -- -- -- Last 2 Encounter Wt Readings: Date: Wt: 10/11/2023 108.9 kg (240 lb) 05/26/2023 110.2 kg (243 lb) Physical Exam Constitutional: General: He is not in acute distress. Appearance: He is not diaphoretic. HENT: Head: Normocephalic and atraumatic. Right Ear: External ear normal. Left Ear: External ear normal. Nose: Nose normal. Mouth/Throat: Pharynx: Oropharynx is clear. Eyes: General: Right eye: No discharge. Left eye: No discharge. Conjunctiva/sclera: Conjunctivae normal. Pupils: Pupils are equal, round, and reactive to light. Cardiovascular: Rate and Rhythm: Normal rate and regular rhythm. Heart sounds: S1 normal and S2 normal. Murmur heard. No friction rub. No gallop. No S3 or S4 sounds. Pulmonary: Effort: Pulmonary effort is normal. No respiratory distress. Breath sounds: Normal breath sounds. No wheezing or rales. Chest: Chest wall: No tenderness. Musculoskeletal: General: Normal range of motion. Cervical back: Normal range of motion and neck supple. Skin: General: Skin is warm and dry. Neurological: Mental Status: He is alert and oriented to person, place, and time. Psychiatric: Mood and Affect: Mood normal. Thought Content: Thought content normal. Judgment: Judgment normal. Pertinent Labs: CBC: Hemoglobin (g/dL) Date Value 11/10/2022 13.7 10/24/2020 13.9 Hematocrit (%) Date Value 11/10/2022 42.4 10/24/2020 43.3 WBC (k/uL) Date Value 11/10/2022 9.53 10/24/2020 7.56 Platelet Count (k/uL) Date Value 11/10/2022 233 10/24/2020 217 BMP: Glucose (mg/dL) Date Value 05/26/2023 110 10/24/2020 111 Potassium (mmol/L) Date Value 05/26/2023 4.5 10/24/2020 4.2 Sodium (mmol/L) Date Value 05/26/2023 141 10/24/2020 139 Chloride (mmol/L) Date Value 05/26/2023 100 10/24/2020 101 CO2 (mmol/L) Date Value 05/26/2023 29 10/24/2020 28 Creatinine (mg/dL) Date Value 05/26/2023 1.02 10/24/2020 1.01 BUN (mg/dL) Date Value 05/26/2023 20 10/24/2020 15 Anion Gap (mmol/L) Date Value 05/26/2023 12 10/24/2020 10 Calcium (mg/dL) Date Value 10/24/2020 9.7 Calcium, Total (mg/dL) Date Value 05/26/2023 9.7 INR: Lipid Profile: Cholesterol, Total Date Value Ref Range Status 11/10/2022 169 <200 mg/dL Final Comment: <200 mg/dL, Desirable 200-239 mg/dL, Borderline high >239 mg/dL, High HDL Cholesterol Date Value Ref Range Status 11/10/2022 44 >39 mg/dL Final Comment: 40-59 mg/dL, Acceptable >59 mg/dL, High: Negative risk factor for coronary heart disease <40 mg/dL, Low: Positive risk factor for coronary heart disease LDL Cholesterol Date Value Ref Range Status 11/10/2022 97 <100 mg/dL Final Comment: <100 mg/dL, Optimal 100-129 mg/dL, Near optimal/above optimal 130-159 mg/dL, Borderline high 160-189 mg/dL, High >189 mg/dL, Very high Secondary prevention optimal LDL Cholesterol levels are recommended to be < 70 mg/dL Triglyceride Date Value Ref Range Status 11/10/2022 139 <150 mg/dL Final Comment: <150 mg/dL, Normal 150-199 mg/dL, Borderline high 200-499 mg/dL, High >499 mg/dL, Very high Hemoglobin A1C: No results found for: HGBA1C TSH: No results found for: TSHREFL Prior Cardiac Testing EKG Assessment and Plan: 78 years old gentleman with asymptomatic low-flow low gradient moderate to severe aortic stenosis ASSESSMENT/PLAN: 1. Essential hypertension, benign - ICD9: 401.1, ICD10: I10 (primary diagnosis) - Controlled - Continue current medications - Recommend home blood pressure monitoring, to bring results to next visit - Encouraged sodium restriction, DASH or Mediterranean diet - Recommend regular aerobic exercise - ECG COMPLETE 2. Nonrheumatic aortic valve stenosis - ICD9: 424.1, ICD10: I35.0 Asymptomatic at this time there is no indication for interventions we will schedule him for echocardiography for assessment - ECHO - PERFLUTREN LIPID MICROSPHERES 1.1 MG/ML INJECTION IN NS 10 ML - SODIUM CHLORIDE 0.9 % (FLUSH) INJECTION SYRINGE 3. Aortic valve disorder - ICD9: 424.1, ICD10: I35.9 Senile nonrheumatic asymptomatic aortic stenosis Chema Oreilly MD Follow up planning: ONE YEAR Electronically signed by Chema Oreilly MD on October 11, 2023, 10:19 AM The above note was partially created using a dictation recognition software. A reasonable attempt has been made to correct any errors. documented in this encounter [facility] 08-25-2023 Miscellaneous Notes Patient has been identified by name and date of : Yes Patient phones for refill(s): Requested Prescriptions Pending Prescriptions Disp Refills amLODIPine (NORVASC) 5 mg tablet 90 tablet 3 Sig: Take 1 tablet by mouth once daily. Date of last office visit in primary care: 05/26/2023 Date of next office visit in primary care: 11/19/2023 Please advise. Thank you. Maxine Calles Pss. documented in this encounter [facility] 05-26-2023 History of Past i llness Narrative Problem Noted Date Diagnosed Date Resolved Date Hypertension 05/26/2023 05/26/2023 05/26/2023 Right inguinal pain 05/26/2023 05/26/2023 05/26/20 23 Cellulitis of foot 11/11/2022 Aortic valve disorder 08/04/20212021 Acute deep vein thrombosis ( DVT) of distal end of right lower extremity 01/16/2019 02/17/2019 Screening for ischemic heart disease 01/16/2019 05/14/2022 History of cellulitis 01/16/20192020 Acute deep vein thrombosis ( DVT) of femoral vein of right lower extremity 01/13/2019 10/30/2020 Overview: Begun on treatment 01/13 Last Assessment & Plan: Plan on treatment for six months. hypercoag panel after. Was provoked by surgery and inactivity. Cellulitis of right hand 11/28/2018 Last Assessment & Plan: Continues to improve but still some swelling in the area around the thumb and wrist He worsened with previous 24 hour hospitalization and on oral antibiotics MRI hand reviewed and no abscess or fluid collection Seen by ortho and no abscess or tenosynovitis Change to unasyn D/w Dr. Mahoney Observe on IV abx one more day, if continues to improve then home on augmentin Neck pain 11/28/2018 01/16/2019 Last Assessment & Plan: Continue PRN muscle relaxer as he was taking prior to admission Osteoarthritis of both shoulders 02/24/2017 10/30/2020 Left hip pain 02/24/2017 01/16/2019 Abnormal glucose 02/13/2013 10/30/2020 Sciatica 02/13/2013 10/29/2016 Obesity 02/13/2013 05/14/2022 Left knee sprain 12/09/2012 09/26/2014 L-S radiculopathy 05/21/2012 05/14/2022 Pain in joint, shoulder region 06/21/2006 09/26/2014 documented as of this encounter (statuses as of 05/26/2023) [facility] History of Past illness Narrative* Problem Noted Date Diagnosed Date Resolved Date Hypertension 05/26/2023 05/26/2023 05/26/2023 Right inguinal pain 05/26/2023 05/26/2023 05/26/20 Cellulitis of foot 11/11/2022 Aortic valve disorder 08/04/20212021 Acute deep vein thrombosis ( DVT) of distal end of right lower extremity 01/16/2019 02/17/2019 Screening for ischemic heart disease 01/16/2019 05/14/2022 History of cellulitis 01/16/20192020 Acute deep vein thrombosis ( DVT) of femoral vein of right lower extremity 01/13/2019 10/30/2020 Overview: Begun on treatment 01/13 Last Assessment & Plan: Plan on treatment for six months. hypercoag panel after. Was provoked by surgery and inactivity. Cellulitis of right hand 11/28/2018 Last Assessment & Plan: Continues to improve but still some swelling in the area around the thumb and wrist He worsened with previous 24 hour hospitalization and on oral antibiotics MRI hand reviewed and no abscess or fluid collection Seen by ortho and no abscess or tenosynovitis Change to unasyn D/w Dr. Mahoney Observe on IV abx one more day, if continues to improve then home on augmentin Neck pain 11/28/2018 01/16/2019 Last Assessment & Plan: Continue PRN muscle relaxer as he was taking prior to admission Osteoarthritis of both shoulders 02/24/2017 10/30/2020 Left hip pain 02/24/2017 01/16/2019 Abnormal glucose 02/13/2013 10/30/2020 Sciatica 02/13/2013 10/29/2016 Obesity 02/13/2013 05/14/2022 Left knee sprain 12/09/2012 09/26/2014 L-S radiculopathy 05/21/2012 05/14/2022 Pain in joint, shoulder region 06/21/2006 09/26/2014 documented as of this encounter (statuses as of 08/25/2023) [facility] History of Past illness Narrative* Problem Noted Date Diagnosed Date Resolved Date Hypertension 05/26/2023 05/26/2023 05/26/2023 Right inguinal pain 05/26/2023 05/26/2023 05/26/20 Cellulitis of foot 11/11/2022 Aortic valve disorder 08/04/20212021 Acute deep vein thrombosis ( DVT) of distal end of right lower extremity 01/16/2019 02/17/2019 Screening for ischemic heart disease 01/16/2019 05/14/2022 History of cellulitis 01/16/20192020 Acute deep vein thrombosis ( DVT) of femoral vein of right lower extremity 01/13/2019 10/30/2020 Overview: Begun on treatment 01/13 Last Assessment & Plan: Plan on treatment for six months. hypercoag panel after. Was provoked by surgery and inactivity. Cellulitis of right hand 11/28/2018 Last Assessment & Plan: Continues to improve but still some swelling in the area around the thumb and wrist He worsened with previous 24 hour hospitalization and on oral antibiotics MRI hand reviewed and no abscess or fluid collection Seen by ortho and no abscess or tenosynovitis Change to unasyn D/w Dr. Mahoney Observe on IV abx one more day, if continues to improve then home on augmentin Neck pain 11/28/2018 01/16/2019 Last Assessment & Plan: Continue PRN muscle relaxer as he was taking prior to admission Osteoarthritis of both shoulders 02/24/2017 10/30/2020 Left hip pain 02/24/2017 01/16/2019 Abnormal glucose 02/13/2013 10/30/2020 Sciatica 02/13/2013 10/29/2016 Obesity 02/13/2013 05/14/2022 Left knee sprain 12/09/2012 09/26/2014 L-S radiculopathy 05/21/2012 05/14/2022 Pain in joint, shoulder region 06/21/2006 09/26/2014 documented as of this encounter (statuses as of 10/11/2023) [facility] History of Past illness Narrative* Problem Noted Date Diagnosed Date Resolved Date Hypertension 05/26/2023 05/26/2023 05/26/2023 Right inguinal pain 05/26/2023 05/26/2023 05/26/20 Cellulitis of foot 11/11/2022 Aortic valve disorder 08/04/20212021 Acute deep vein thrombosis ( DVT) of distal end of right lower extremity 01/16/2019 02/17/2019 Screening for ischemic heart disease 01/16/2019 05/14/2022 History of cellulitis 01/16/20192020 Acute deep vein thrombosis ( DVT) of femoral vein of right lower extremity 01/13/2019 10/30/2020 Overview: Begun on treatment 01/13 Last Assessment & Plan: Plan on treatment for six months. hypercoag panel after. Was provoked by surgery and inactivity. Cellulitis of right hand 11/28/2018 Last Assessment & Plan: Continues to improve but still some swelling in the area around the thumb and wrist He worsened with previous 24 hour hospitalization and on oral antibiotics MRI hand reviewed and no abscess or fluid collection Seen by ortho and no abscess or tenosynovitis Change to unasyn D/w Dr. Mahoney Observe on IV abx one more day, if continues to improve then home on augmentin Neck pain 11/28/2018 01/16/2019 Last Assessment & Plan: Continue PRN muscle relaxer as he was taking prior to admission Osteoarthritis of both shoulders 02/24/2017 10/30/2020 Left hip pain 02/24/2017 01/16/2019 Abnormal glucose 02/13/2013 10/30/2020 Sciatica 02/13/2013 10/29/2016 Obesity 02/13/2013 05/14/2022 Left knee sprain 12/09/2012 09/26/2014 L-S radiculopathy 05/21/2012 05/14/2022 Pain in joint, shoulder region 06/21/2006 09/26/2014 documented as of this encounter (statuses as of 10/14/2023) [facility] History of Past illness Narrative* Problem Noted Date Diagnosed Date Resolved Date Hypertension 05/26/2023 05/26/2023 05/26/2023 Right inguinal pain 05/26/2023 05/26/2023 05/26/20 Cellulitis of foot 11/11/2022 Aortic valve disorder 08/04/20212021 Acute deep vein thrombosis ( DVT) of distal end of right lower extremity 01/16/2019 02/17/2019 Screening for ischemic heart disease 01/16/2019 05/14/2022 History of cellulitis 01/16/20192020 Acute deep vein thrombosis ( DVT) of femoral vein of right lower extremity 01/13/2019 10/30/2020 Overview: Begun on treatment 01/13 Last Assessment & Plan: Plan on treatment for six months. hypercoag panel after. Was provoked by surgery and inactivity. Cellulitis of right hand 11/28/2018 Last Assessment & Plan: Continues to improve but still some swelling in the area around the thumb and wrist He worsened with previous 24 hour hospitalization and on oral antibiotics MRI hand reviewed and no abscess or fluid collection Seen by ortho and no abscess or tenosynovitis Change to unasyn D/w Dr. Mahoney Observe on IV abx one more day, if continues to improve then home on augmentin Neck pain 11/28/2018 01/16/2019 Last Assessment & Plan: Continue PRN muscle relaxer as he was taking prior to admission Osteoarthritis of both shoulders 02/24/2017 10/30/2020 Left hip pain 02/24/2017 01/16/2019 Abnormal glucose 02/13/2013 10/30/2020 Sciatica 02/13/2013 10/29/2016 Obesity 02/13/2013 05/14/2022 Left knee sprain 12/09/2012 09/26/2014 L-S radiculopathy 05/21/2012 05/14/2022 Pain in joint, shoulder region 06/21/2006 09/26/2014 documented as of this encounter (statuses as of 10/27/2023) [facility] History of Present illness Narrative* Kirsten Cummings RT(R) - 05/26/2023 10:00 AM EST Radiology Service Progress Note PATIENT NAME: Goran Gabriel DATE OF SERVICE: May 26, 2023 TIME: 10:16 AM PATIENT IDENTITY VERIFICATION COMPLETED USING TWO (2) IDENTIFIERS: Name and Date of confirmedby patient verbally. FALL SCREENING: Has the patient had 2 falls in the last year or 1 fall with injury or currently using an Ambulatory Assistive Device (Walker, Cane, Wheelchair, Crutches, etc.)? No PATIENT GENDER DATA: Male PATIENT RELEVANT IMPLANT DATA REVIEWED: Not Applicable RADIOLOGY DEPARTMENT: General X-ray: Exam(s) Completed: Chest X-Ray PERIPHERAL IV DATA: Not applicable SIGNED BY: RT Tennille(R) May 26, 2023 10:16 AM [facility] Miscellaneous Notes* Addendum Note - Miguelangel Courtney MD - 05/26/2023 9:57 AM ESTAddended by: MIGUELANGEL COURTNEY on: 05/26/2023 09:57 AM Modules accepted: [facility] History of Present illness Narrative* Miguelangel Courtney MD - 05/26/2023 9:23 AM EST Patient presents with: 6 Month Exam HPI: Patient presents today for office visit for follow up. Complains of cough today. Started about 5 days ago. Cough is productive. Cough is worse just beforebed and first thing in the morning. Denies any other symptoms. No one at home is ill. Did not do home covid test. Offered that we can consider one however is improving and feeling. No shortness of breath. No gi issues. HTN: Continues on Amlodipine, HCTZ, losartan and Metoprolol for blood pressure. Monitors BP occ. Stable. Denies chest pain and shortness of breath No headaches or dizziness No palpitations or syncope No edema HLD: Continues on Atorvastatin No myalgias Labs done at [facility]: Saw Stephon Negron 05/25/23 Hx BPH PSA 0.86 No urinary issues Continues on Tamsulosin Follows with Cardiology. No signs or symptoms of CHF. Scheduled for follow up on 10/11/23. Seeing Dr Pittman, rheum recently. Sees Dr. Cerrato, nephrology. MEDICATIONS: Current Outpatient Medications Medication Sig predniSONE (DELTASONE) 10 mg tablet Take 10 mg by mouth as needed. hydroCHLOROthiazide 25 mg tablet Take 1 tablet by mouth once daily. tamsulosin (FLOMAX) 0.4 mg Take 1 capsule by mouth daily at bedtime. atorvastatin (LIPITOR) 20 mg tablet Take 1 tablet by mouth once daily. losartan (COZAAR) 100 mg tablet Take 1 tablet by mouth once daily. metoprolol succinate ER (TOPROL XL) 25 mg 24 hr tablet Take 1 tablet by mouth once daily. amLODIPine (NORVASC) 5 mg tablet Take 1 tablet by mouth once daily. fluticasone (FLONASE) 50 mcg/actuation nasal spray Use 1 [place] in each nostril once daily. Rinse mouth after use. hydroxychloroquine (PLAQUENIL) 200 mg tablet Take 200 mg by mouth once daily. No current facility-administered medications for this visit. ALLERGIES: ALLERGIES Allergen Reactions Simvastatin Intolerance myalgias PAST MEDICAL HISTORY Diagnosis Date Aortic stenosis mild BPH associated with nocturia Hyperglycemia Hyperlipidemia Hypertension IMPOTENCE, ORGANIC ORIGN Kidney congenitally absent, right L-S radiculopathy right leg, Stenosis on lumbar MRI Obesity Personal history of colonic polyps PAST SURGICAL HISTORY Procedure Laterality Date APPENDECTOMY COLONOSCOPY 10/05/2018 COLONOSCOPY FLX DX W/COLLJ SPEC WHEN PFRMD 09/05/13 normal colon - prior polyps 5 year follow up COLSC FLX W/RMVL OF TUMOR POLYP LESION SNARE TQ 01/20/2005 COLSC FLX W/RMVL OF TUMOR POLYP LESION SNARE TQ 06/13/10 polyps cecum and 45cm, tubular adenomas RPR 1ST INGUN HRNA AGE 5 YRS/> REDUCIBLE Hernia repair, inguinal bilateral RX RIB FRACTURE W 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 REVIEW OF SYSTEMS All other reviewed and negative other than HPI. HEALTH MAINTENANCE: Reviewed health maintenance issues today and recommended the following in detail. BP Controlled (<130/80) Never done Shingrix Vaccine(1 of 2) Never done RSV Vaccine(1 - 1-dose 60+ series) Never done DTaP,Tdap,Td Vaccine(1 - Tdap) due on 2011 Advance Directive Discussion - his is his surrogate. Depression Assessment due on 07/12/2022 Influenza Vaccine(1) due on 03/12/2023 Covid-19 Vaccine( season) due on 03/12/2023 VITALS: BP 113/65 Pulse 77 Temp (!) 35.8 C (96.4 F) Ht 170.2 cm (5' 7) Wt 110.2 kg (243 lb) BMI 38.06 kg/m Last 4 Encounter Wt Readings: Date: Wt: 05/25/2023 109.9 kg (242 lb 3.2 oz) 11/11/2022 107.5 kg (237 lb) 09/28/2022 108.7 kg (239 lb 9.6 oz) 05/14/2022 104.8 kg (231 lb) PHYSICAL EXAMINATION: General appearance: Well appearing, alert, in no acute distress, well-hydrated, well nourished. Skin: Skin color, texture, turgor normal, no suspicious rashes or lesions Head: Normocephalic, no masses, lesions, tenderness or abnormalities Eyes: Anicteric sclera. Pupils are equally round and reactive to light. Extraocular movements are intact. Ears: External ears normal, canals clear Nose/Sinuses: Nares normal, septum midline, mucosa normal, no drainage or sinus tenderness Oropharynx: Lips, mucosa, and tongue normal, teeth and gums normal, oropharynx normal Neck: Supple, no adenopathy; thyroid symmetric, normal size, no bruits Lungs: moving air well. Bilateral rhonchi. Heart:murmur unchanged. RRR Abdomen: Normal abdominal exam, Abdomen soft, non-tender. Bowel sounds normal. No masses, organomegaly Extremities: No deformities, edema, skin discoloration, clubbing or cyanosis. Good capillary refill. ASSESSMENT/PLAN: 1. Hyperlipidemia, unspecified hyperlipidemia type - ICD9: 272.4, ICD10: E78.5 (primary diagnosis) - Controlled - Continue current medications 2. Essential hypertension, benign - ICD9: 401.1, ICD10: I10 - Controlled - continue meds. 3. Aortic valve stenosis, etiology of cardiac valve disease unspecified - ICD9: 424.1, ICD10: I35.0 - per cardiology 4. Other proteinuria - ICD9: 791.0, ICD10: R80.8 - per Dr Cerrato 5. Inflammatory polyarthritis (HCC) - ICD9: 714.9, ICD10: M06.4 - per Dr. Pittman 6. Prediabetes - ICD9: 790.29, ICD10: R73.03 - check labs. - HGB A1C - BASIC METABOLIC PNL 7. URI, acute - ICD9: 465.9, ICD10: J06.9 - Discussed viral etiology and rationale for treatment. - Symptomatic treatment with prn analgesia - Supportive care with fluids and rest - PREDNISONE 20 MG TABLET - ALBUTEROL SULFATE HFA 90 MCG/ACTUATION AEROSOL INHALER - XR CHEST 2V FRONTAL/LAT - COVID & INFLUENZA A/B & RSV NAAT, ROUTINE 8. Wheezing - ICD9: 786.07, ICD10: R06.2 - Discussed risks and benefits of new medication with the patient. Advised them to call if any sideeffects or questions. Red flags for re-assessment reviewed with patient in detail. Call if symptoms worsen at all or if not better in one to two weeks Reviewed diagnosis and treatment options in detail. Questions were answered. Patient expressed understanding of treatment plan. Do shots when feeling better. - PREDNISONE 20 MG TABLET - ALBUTEROL SULFATE HFA 90 MCG/ACTUATION AEROSOL INHALER - XR CHEST 2V FRONTAL/LAT - COVID & INFLUENZA A/B & RSV NAAT, ROUTINE Miguelangel Courtney MD [facility] Instructions* Patient Instructions* Stephon Negron PA-C - 05/25/2023 9:47 AM EST > 1 year Appt w/ B. JOSE A Negron, JOVITA TOLENTINO with PSA prior [facility] History of Present illness Narrative* Stephon Negron PA-C - 05/25/2023 9:40 AM EST Images from the original note were not included. [facility] PATIENT INFO: Goran Gabriel 77 year old [facility]# [id number] Some elements copied from my previous note, which have been updated where appropriate, and all reflect current medical decision making from date of this visit. PCP: Miguelangel Courtney MD CHIEF COMPLAINT: BPH HPI: This is a 77 year old male with a Solitary Kidney, who has BPH with Nocturia still at 2-3 times , but at this time he is not bothered by it still the same but not interested in treatment today, again He will let us know if that changes. Continue Following with Dr. Cerrato ( Nephrology) for proteinuria Foam in urine due to protein in urine VOIDING SYMPTOMS: NTF: 2 time ALLERGY: ALLERGIES Allergen Reactions Simvastatin Intolerance myalgias MEDICATIONS: Current Outpatient Medications Medication Sig Dispense Refill hydroCHLOROthiazide 25 mg tablet Take 1 tablet by mouth once daily. 90 tablet 3 tamsulosin (FLOMAX) 0.4 mg Take 1 capsule by mouth daily at bedtime. 90 capsule 3 atorvastatin (LIPITOR) 20 mg tablet Take 1 tablet by mouth once daily. 90 tablet 3 losartan (COZAAR) 100 mg tablet Take 1 tablet by mouth once daily. 90 tablet 3 metoprolol succinate ER (TOPROL XL) 25 mg 24 hr tablet Take 1 tablet by mouth once daily. 90 tablet3 amLODIPine (NORVASC) 5 mg tablet Take 1 tablet by mouth once daily. 90 tablet 3 fluticasone (FLONASE) 50 mcg/actuation nasal spray Use 1 [place] in each nostril once daily. Rinse mouth after use. 3 Bottle 3 hydroxychloroquine (PLAQUENIL) 200 mg tablet Take 200 mg by mouth once daily. Comp Stocking,Knee,Regular,Med misc 2 Each once daily. (Patient not taking: No sig reported) 2 Each1 No current facility-administered medications for this visit. 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 No acute distress No change in ROS since last urology visit Physical Examination: Blood pressure 132/72, pulse 100, temperature 36.1 C (97 F), temperature source Temporal, height 170.2 cm (5' 7), weight 109.9 kg (242 lb 3.2 oz), SpO2 94 %. General Appearance/ Constitutional: Well developed, well nourished, and in no apparent distress Prostate: About 40 gm, non tender, no nodules LABS: Results for orders placed or performed in visit on 05/19/23 PSA/PROSTSPECAG DIAG Result Value Ref Range PSA 0.86 <2.60 ng/mL Creatinine Date Value Ref Range Status 12/02/2022 1.07 0.73 - 1.22 mg/dL Final 11/10/2022 1.23 (H) 0.73 - 1.22 mg/dL Final 05/11/2022 1.08 0.73 - 1.22 mg/dL Final 10/31/2021 1.02 0.73 - 1.22 mg/dL Final IMPRESSION / PLAN: > History of BPH w LUTS > PSA 0.86 > JEROMY 40 g benign > Flomax 0.4 mg - Refilled > Hx of Solitary Kidney > Proteinuria > Following by Dr. Cerrato - Nephrology > 1 year Appt w/ B. JOSE A Negron MT, PA-C with PSA prior JOSE A Whelan MT, PA-C * Kayce Guillen LPN - 05/25/2023 9:28 AM EST Verified name and date of . CC Post Void Residual HPI: Goran Gabriel is a 77 year old male. The patient is here now for an appointment with JOSE A Whelan MT, PA-COV. Procedure: Explained procedure to patient and verbalizes understanding. Performed a PVR. Patient urinated and instructed to empty bladder as much as possible just prior to having PVR done using bladder ultrasound scanner. Results of scan: 0 mL The patient tolerated the procedure well. Plan: Appointment with Stephon. documented in [facility] encounter[facility] History of Present illness Narrative* Miguelangel Courtney MD - 11/11/2022 10:35 AM EDT Patient presents with: 6 Month Exam HPI: Patient presents today for office visit for follow up. HTN: Does not monitor BP at home Does not miss doses of medications Denies chest pain and shortness of breath No headaches or dizziness No edema No syncope No palpitations Follows with Cardiology for moderate aortic stenosis. Doing well from the cardiac point of view asymptomatic denies chest pain or shortness of breath No signs or symptoms of congestive heart HLD: No myalgias. Good control. A1c 6.4 Glucose 130 Sees [facility]iatry [facility]. Has problems with feet. Pain. Calluses. Will follow renal function. Last ua was negative for protein. Component Latest Ref Rng & Units 11/10/2022 WBC 3.70 - 11.00 k/uL 9.53 RBC 4.20 - 6.00 m/uL 4.37 Hemoglobin 13.0 - 17.0 g/dL 13.7 Hematocrit 39.0 - 51.0 % 42.4 MCV 80.0 - 100.0 fL 97.0 MCH 26.0 - 34.0 pg 31.4 MCHC 30.5 - 36.0 g/dL 32.3 RDW-CV 11.5 - 15.0 % 12.9 Platelet Count 150 - 400 k/uL 233 MPV 9.0 - 12.7 fL 11.2 Neut% % 74.2 Abs Neut (ANC) 1.45 - 7.50 k/uL 7.08 Lymph% % 14.7 Abs Lymph 1.00 - 4.00 k/uL 1.40 [place]% % 7.9 Abs [place] <0.87 k/uL 0.75 Eosin% % 1.5 Abs Eosin <0.46 k/uL 0.14 Baso% % 0.4 Abs Baso <0.11 k/uL 0.04 Immature Gran % % 1.3 IMMATURE GRANS (ABS) <0.10 k/uL 0.12 (H) NRBC /100 WBC 0.0 Absolute nRBC <0.01 k/uL <0.01 DTYPE Auto Protein, Total 6.3 - 8.0 g/dL 7.2 Albumin 3.9 - 4.9 g/dL 4.5 Calcium 8.5 - 10.2 mg/dL 10.0 Bilirubin, Total 0.2 - 1.3 mg/dL 0.5 Alkaline Phosphatase 38 - 113 U/L 90 AST 14 - 40 U/L 23 ALT 10 - 54 U/L 27 Glucose 74 - 99 mg/dL 130 (H) BUN 9 - 24 mg/dL 24 Creatinine 0.73 - 1.22 mg/dL 1.23 (H) Sodium 136 - 144 mmol/L 141 Potassium 3.7 - 5.1 mmol/L 4.4 Chloride 97 - 105 mmol/L 100 CO2 22 - 30 mmol/L 27 Anion Gap 9 - 18 mmol/L 14 eGFR >=60 mL/min/1.73m 60 Cholesterol, Total <200 mg/dL 169 Triglyceride <150 mg/dL 139 HDL Cholesterol >39 mg/dL 44 Non HDL Cholesterol <130 mg/dL 125 Fasting Time hrs 13 VLDL Cholesterol <30 mg/dL 28 TC:HDL Ratio <5.10 3.84 LDL Cholesterol <100 mg/dL 97 LDL:HDL Ratio <2.54 2.20 Hemoglobin A1C 4.3 - 5.6 % 6.4 (H) Estimated Average Glucose mg/dL 137 MEDICATIONS: Current Outpatient Medications Medication Sig atorvastatin (LIPITOR) 20 mg tablet Take 1 tablet by mouth once daily. losartan (COZAAR) 100 mg tablet Take 1 tablet by mouth once daily. metoprolol succinate ER (TOPROL XL) 25 mg 24 hr tablet Take 1 tablet by mouth once daily. hydroCHLOROthiazide (HYDRODIURIL, ESIDRIX) 25 mg tablet Take 1 tablet by mouth once daily. amLODIPine (NORVASC) 5 mg tablet Take 1 tablet by mouth once daily. tamsulosin (FLOMAX) 0.4 mg Take 1 capsule by mouth daily at bedtime. fluticasone (FLONASE) 50 mcg/actuation nasal spray Use 1 [place] in each nostril once daily. Rinse mouth after use. hydroxychloroquine (PLAQUENIL) 200 mg tablet Take 200 mg by mouth once daily. Comp Stocking,Knee,Regular,Med misc 2 Each once daily. (Patient not taking: No sig reported) No current facility-administered medications for this visit. ALLERGIES: ALLERGIES Allergen Reactions Simvastatin Intolerance myalgias PAST MEDICAL HISTORY Diagnosis Date Aortic stenosis mild Hyperglycemia Hyperlipidemia Hypertension IMPOTENCE, ORGANIC ORIGN Kidney congenitally absent, right L-S radiculopathy right leg, Stenosis on lumbar MRI Obesity Personal history of colonic polyps PAST SURGICAL HISTORY Procedure Laterality Date APPENDECTOMY COLONOSCOPY 10/05/2018 COLONOSCOPY FLX DX W/COLLJ SPEC WHEN PFRMD 09/05/13 normal colon - prior polyps 5 year follow up COLSC FLX W/RMVL OF TUMOR POLYP LESION SNARE TQ 01/20/2005 COLSC FLX W/RMVL OF TUMOR POLYP LESION SNARE TQ 06/13/10 polyps cecum and 45cm, tubular adenomas RPR 1ST INGUN HRNA AGE 5 YRS/> REDUCIBLE Hernia repair, inguinal bilateral RX RIB FRACTURE W 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 REVIEW OF SYSTEMS All other reviewed and negative other than HPI. VITALS: BP 138/68 Pulse 82 Ht 170.2 cm (5' 7) Wt 107.5 kg (237 lb) SpO2 95% BMI 37.12 kg/m Last 4 Encounter Wt Readings: Date: Wt: 09/28/2022 108.7 kg (239 lb 9.6 oz) 05/14/2022 104.8 kg (231 lb) 04/07/2022 104.3 kg (230 lb) 11/07/2021 102.5 kg (226 lb) PHYSICAL EXAMINATION: General appearance: Well appearing, alert, in no acute distress, well-hydrated, well nourished. Skin: Skin color, texture, turgor normal, no suspicious rashes or lesions Head: Normocephalic, no masses, lesions, tenderness or abnormalities Neck: Supple, no adenopathy; thyroid symmetric, normal size, no bruits Lungs: Lungs clear to auscultation. No wheezing, rhonchi, rales Heart: RRR without murmur, gallop, or rubs. No ectopy Abdomen: Normal abdominal exam, Abdomen soft, non-tender. Bowel sounds normal. No masses, organomegaly Extremities: No deformities, edema, skin discoloration, clubbing or cyanosis. Good capillary refill. ASSESSMENT/PLAN: 1. Essential hypertension, benign - ICD9: 401.1, ICD10: I10 (primary diagnosis) - good control 2. Aortic valve stenosis, etiology of cardiac valve disease unspecified - ICD9: 424.1, ICD10: I35.0 - per cardiology 3. Hyperlipidemia, unspecified hyperlipidemia type - ICD9: 272.4, ICD10: E78.5 - good control - Continue current medication. 4. Inflammatory polyarthritis (HCC) - ICD9: 714.9, ICD10: M06.4 - per rheum. 5. Prediabetes - ICD9: 790.29, ICD10: R73.03 - follow labs. 6. Renal insufficiency - ICD9: 593.9, ICD10: N28.9 - push fluids. Follow labs. Does have one functioning kidney. - BASIC METABOLIC PNL - URINALYSIS, WITH MICROSCOPIC Miguelangel Courtney MD documented in this encounter[facility]05-[facility]23 Miscellaneous Notes* Telephone Encounter - Susie Prescott MA - 11/09/2022 12:12 PM EDT Patient notified and verbalized understanding. Susie Prescott MA * Telephone Encounter - Miguelangel Courtney MD - 11/09/2022 12:07 PM EDT Orders placed. * Telephone Encounter - Krystin Lloyd RN - 11/09/2022 8:17 AM EDT Pt reports he has an appointment with provider on Wednesday. He was asking if provider would like him to have any labs ordered. Please call Pt if he would like labs ordered. documented in this encounterFort [facility]04-10-2023 Miscellaneous Notes* Telephone Encounter - Litzy Torres - 10/19/2022 9:45 AM EDT Patient has been identified by name and date of : Yes Requested Prescriptions Pending Prescriptions Disp Refills atorvastatin (LIPITOR) 20 mg tablet 90 tablet 3 Sig: Take 1 tablet by mouth once daily. RX INSTRUCTIONS: Patient aware RX escripted to mail away pharmacy. No need to notify patient. Litzy Torres documented in this encounterFort [facility]03-20-[facility]23 History of Present illness Narrative* Chema Oreilly MD - 09/28/2022 12:22 PM EDT Images from the original note were not included. Chema Oreilly MD Interventional Cardiology [address] [place] [id number] Chief Complaint Patient presents with: Follow Up HISTORY OF PRESENT ILLNESS: Mr. Gabriel is a 77 year old male seen in my office today for assessment management of moderate aorticstenosis Patient doing well from the cardiac point of view asymptomatic denies chest pain or shortness of breath repeat echocardiography of July of this year shows ejection fraction 59% peak gradient 22 mean of 12 and dimensionless index of 0.36 which is not different from his prior visit echocardiography consistent with moderate aortic stenosis No signs or symptoms of congestive heart Cardiac Risk Factors age (male over 45, female over 55), hyperlipidemia, hypertension PAST MEDICAL HISTORY Diagnosis Date Aortic stenosis mild Hyperglycemia Hyperlipidemia Hypertension IMPOTENCE, ORGANIC ORIGN Kidney congenitally absent, right L-S radiculopathy right leg, Stenosis on lumbar MRI Obesity Personal history of colonic polyps PAST SURGICAL HISTORY Procedure Laterality Date APPENDECTOMY COLONOSCOPY 10/05/2018 COLONOSCOPY FLX DX W/COLLJ SPEC WHEN PFRMD 09/05/13 normal colon - prior polyps 5 year follow up COLSC FLX W/RMVL OF TUMOR POLYP LESION SNARE TQ 01/20/2005 COLSC FLX W/RMVL OF TUMOR POLYP LESION SNARE TQ 06/13/10 polyps cecum and 45cm, tubular adenomas RPR 1ST INGUN HRNA AGE 5 YRS/> REDUCIBLE Hernia repair, inguinal bilateral RX RIB FRACTURE W 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 90 tablet 3 metoprolol succinate ER (TOPROL XL) 25 mg 24 hr tablet Take 1 tablet by mouth once daily. 90 tablet3 hydroCHLOROthiazide (HYDRODIURIL, ESIDRIX) 25 mg tablet Take 1 tablet by mouth once daily. 90 tablet 3 amLODIPine (NORVASC) 5 mg tablet Take 1 tablet by mouth once daily. 90 tablet 3 tamsulosin (FLOMAX) 0.4 mg Take 1 capsule by mouth daily at bedtime. 90 capsule 3 atorvastatin (LIPITOR) 20 mg tablet Take 1 tablet by mouth once daily. 90 tablet 3 albuterol HFA (VENTOLIN HFA) 90 mcg/actuation inhaler Inhale 2 Puffs as instructed every 4 hours asneeded for Wheezing/Shortness of Breath. 18 g 3 fluticasone (FLONASE) 50 mcg/actuation nasal spray Use 1 [place] in each nostril once daily. Rinse mouth after use. 3 Bottle 3 hydroxychloroquine (PLAQUENIL) 200 mg tablet Take 200 mg by mouth once daily. Comp Stocking,Knee,Regular,Med misc 2 Each once daily. (Patient not taking: No sig reported) 2 Each1 Current Facility-Administered Medications Medication Dose Route Frequency Provider Last Rate Last Admin perflutren lipid microspheres 1.3 mL in NaCl (PF) 0.9% 10 mL injection (DEFINITY) INTRAVENOUS DIRECTED PRN Chema Oreilly MD sodium chloride 0.9 % (flush) 10 mL (BD POSIFLUSH) 10 mL INTRAVENOUS DIRECTED PRN Chema Oreilly MD Review of Systems Constitutional: Negative for chills, diaphoresis, fever, malaise/fatigue and weight loss. HENT: Negative for congestion, ear discharge, ear pain, hearing loss, nosebleeds, sinus pain, sore throat and tinnitus. Eyes: Negative for blurred vision, double vision, photophobia, pain, discharge and redness. Respiratory: Negative for cough, hemoptysis, sputum production, shortness of breath, wheezing and stridor. Cardiovascular: Negative for chest pain, palpitations, orthopnea, claudication, leg swelling and PND. Gastrointestinal: Negative for abdominal pain, blood in stool, constipation, diarrhea, heartburn, melena, nausea and vomiting. Genitourinary: Negative for dysuria, flank pain, frequency, hematuria and urgency. Musculoskeletal: Negative for back pain, falls, joint pain, myalgias and neck pain. Skin: Negative for itching and rash. Neurological: Negative for dizziness, tingling, tremors, sensory change, speech change, focal weakness, seizures, loss of consciousness, weakness and headaches. Endo/Heme/Allergies: Negative for environmental allergies and polydipsia. Does not bruise/bleed easily. Psychiatric/Behavioral: Negative for depression, hallucinations, memory loss, substance abuse and suicidal ideas. The patient is not nervous/anxious and does not have insomnia. Physical Examination: Vitals:BP 126/76 Pulse 77 Ht 5' 7 (1.70m) Wt 239 lb 9.6 oz (108.7kg) SpO2 95% BMI 37.52 kg/(m^2). BP w/Orthostatic Vitals Date and Time Orthostatic BP Orthostatic Pulse BP Pulse BP Position BP Site BP Cuff Size 09/28/22 1114 -- -- 126/76 77 -- -- -- Last 2 Encounter Wt Readings: Date: Wt: 09/28/2022 108.7 kg (239 lb 9.6 oz) 05/14/2022 104.8 kg (231 lb) Physical Exam Constitutional: General: He is not in acute distress. Appearance: He is not diaphoretic. HENT: Head: Normocephalic and atraumatic. Right Ear: External ear normal. Left Ear: External ear normal. Nose: Nose normal. Mouth/Throat: Pharynx: Oropharynx is clear. Eyes: General: Right eye: No discharge. Left eye: No discharge. Conjunctiva/sclera: Conjunctivae normal. Pupils: Pupils are equal, round, and reactive to light. Cardiovascular: Rate and Rhythm: Normal rate and regular rhythm. Heart sounds: S1 normal and S2 normal. Murmur heard. No friction rub. No gallop. No S3 or S4 sounds. Pulmonary: Effort: Pulmonary effort is normal. No respiratory distress. Breath sounds: Normal breath sounds. No wheezing or rales. Chest: Chest wall: No tenderness. Abdominal: General: Abdomen is flat. Musculoskeletal: General: Normal range of motion. Cervical back: Normal range of motion and neck supple. Skin: General: Skin is warm and dry. Neurological: Mental Status: He is alert and oriented to person, place, and time. Psychiatric: Mood and Affect: Mood normal. Thought Content: Thought content normal. Pertinent Labs: CBC: Hemoglobin (g/dL) Date Value 05/11/2022 13.4 10/24/2020 13.9 Hematocrit (%) Date Value 05/11/2022 42.2 10/24/2020 43.3 WBC (k/uL) Date Value 05/11/2022 9.12 10/24/2020 7.56 Platelet Count (k/uL) Date Value 05/11/2022 214 10/24/2020 217 BMP: Glucose (mg/dL) Date Value 05/11/2022 108 10/24/2020 111 Potassium (mmol/L) Date Value 05/11/2022 4.6 10/24/2020 4.2 Sodium (mmol/L) Date Value 05/11/2022 141 10/24/2020 139 Chloride (mmol/L) Date Value 05/11/2022 102 10/24/2020 101 CO2 (mmol/L) Date Value 05/11/2022 28 10/24/2020 28 Creatinine (mg/dL) Date Value 05/11/2022 1.08 10/24/2020 1.01 BUN (mg/dL) Date Value 05/11/2022 20 10/24/2020 15 Anion Gap (mmol/L) Date Value 05/11/2022 11 10/24/2020 10 Calcium (mg/dL) Date Value 10/24/2020 9.7 Calcium, Total (mg/dL) Date Value 05/11/2022 9.7 INR: Lipid Profile: Cholesterol, Total Date Value Ref Range Status 05/11/2022 163 <200 mg/dL Final Comment: <200 mg/dL, Desirable 200-239 mg/dL, Borderline high >239 mg/dL, High HDL Cholesterol Date Value Ref Range Status 05/11/2022 43 >39 mg/dL Final Comment: 40-59 mg/dL, Acceptable >59 mg/dL, High: Negative risk factor for coronary heart disease <40 mg/dL, Low: Positive risk factor for coronary heart disease LDL Cholesterol Date Value Ref Range Status 05/11/2022 96 <100 mg/dL Final Comment: <100 mg/dL, Optimal 100-129 mg/dL, Near optimal/above optimal 130-159 mg/dL, Borderline high 160-189 mg/dL, High >189 mg/dL, Very high Secondary prevention optimal LDL Cholesterol levels are recommended to be < 70 mg/dL Triglyceride Date Value Ref Range Status 05/11/2022 118 <150 mg/dL Final Comment: <150 mg/dL, Normal 150-199 mg/dL, Borderline high 200-499 mg/dL, High >499 mg/dL, Very high Hemoglobin A1C: No results found for: HGBA1C TSH: No results found for: TSHREFL Prior Cardiac Testing echo Assessment and Plan: 77 years old gentleman with asymptomatic moderate aortic stenosis Hypertension Well-controlled Continue same cardiac medication 2. Aortic stenosis Moderate aortic stenosis No indication for intervention Demand follow-up in 1 year Follow up planning: One year Electronically signed by Chema Oreilly MD on September 28, 2022, 12:22 PM The above note was partially created using a dictation recognition software. A reasonable attempt has been made to correct any errors. documented in this encounterFort [facility]01-11-2023 Miscellaneous Notes* Telephone Encounter - Annika De Guzman Pss - 07/22/2022 9:23 AM EST Patient has been identified by name and date of : Yes Last office visit in this department: 05/14/2022 RX INSTRUCTIONS: Patient aware RX escripted to mail away pharmacy. No need to notify patient. Patient phones requesting refills as follows: Requested Prescriptions Pending Prescriptions Disp Refills losartan (COZAAR) 100 mg tablet 90 tablet 3 Sig: Take 1 tablet by mouth once daily. metoprolol succinate ER (TOPROL XL) 25 mg 24 hr tablet 90 tablet 3 Sig: Take 1 tablet by mouth once daily. SULY-05/13/22 Labs-05/11/22 NOV-11/11/22 med filled 08/25/21 Please review and advise. Annika De Guzman Pss documented in this encounterFort [facility]11-03-2022 History of Present illness Narrative* Miguelangel Courtney MD - 05/14/2022 9:22 AM EDT Patient presents with: 6 Month Exam Immunizations: Flu vaccination Allergies: Bad this fall Low Back Pain HPI: Patient presents today for office visit for 6 month follow up. HTN: Patient is compliant with meds Yes Monitors bp at home: No. Denies side effects: Yes. Chest pain: No. Dyspnea: No. Edema: No. Palpitations: No. Syncope: No. Headache: No. Dizziness: No. HYPERLIPIDEMIA: Patient is taking medications: Yes. Patient is watching diet: Yes. Patient denies myalgias: Yes. Patient denies gi upset: Yes Low back pain for about the past week. Started in left side and radiates across to right side. Recalls no injury. Is an aching pain. No radicular symptoms. Seems to be improving. Allergies this fall have been bad. Waking up during the night and in the morning with congestion. Using his Flonase. Sees Cardiology and urology. Still seeing rheumatology. Not having to use compression socks. Component Latest Ref Rng & Units 05/11/2022 WBC 3.70 - 11.00 k/uL 9.12 RBC 4.20 - 6.00 m/uL 4.38 Hemoglobin 13.0 - 17.0 g/dL 13.4 Hematocrit 39.0 - 51.0 % 42.2 MCV 80.0 - 100.0 fL 96.3 MCH 26.0 - 34.0 pg 30.6 MCHC 30.5 - 36.0 g/dL 31.8 RDW-CV 11.5 - 15.0 % 12.4 Platelet Count 150 - 400 k/uL 214 MPV 9.0 - 12.7 fL 11.3 Neut% % 70.3 Abs Neut (ANC) 1.45 - 7.50 k/uL 6.41 Lymph% % 17.5 Abs Lymph 1.00 - 4.00 k/uL 1.60 [place]% % 9.2 Abs [place] <0.87 k/uL 0.84 Eosin% % 1.8 Abs Eosin <0.46 k/uL 0.16 Baso% % 0.3 Abs Baso <0.11 k/uL 0.03 Immature Gran % % 0.9 IMMATURE GRANS (ABS) <0.10 k/uL 0.08 NRBC /100 WBC 0.0 Absolute nRBC <0.01 k/uL <0.01 DTYPE Auto Protein, Total 6.3 - 8.0 g/dL 7.1 Albumin 3.9 - 4.9 g/dL 4.7 Calcium 8.5 - 10.2 mg/dL 9.7 Bilirubin, Total 0.2 - 1.3 mg/dL 0.5 Alkaline Phosphatase 38 - 113 U/L 82 AST 14 - 40 U/L 23 ALT 10 - 54 U/L 34 Glucose 74 - 99 mg/dL 108 (H) BUN 9 - 24 mg/dL 20 Creatinine 0.73 - 1.22 mg/dL 1.08 Sodium 136 - 144 mmol/L 141 Potassium 3.7 - 5.1 mmol/L 4.6 Chloride 97 - 105 mmol/L 102 CO2 22 - 30 mmol/L 28 Anion Gap 9 - 18 mmol/L 11 eGFR >=60 mL/min/1.73m 71 Cholesterol, Total <200 mg/dL 163 Triglyceride <150 mg/dL 118 HDL Cholesterol >39 mg/dL 43 Non HDL Cholesterol <130 mg/dL 120 Fasting Time hrs 12 VLDL Cholesterol <30 mg/dL 24 TC:HDL Ratio <5.10 3.79 LDL Cholesterol <100 mg/dL 96 LDL:HDL Ratio <2.54 2.23 Hemoglobin A1C 4.3 - 5.6 % 5.8 (H) Estimated Average Glucose mg/dL 120 MEDICATIONS: Current Outpatient Medications Medication Sig hydroCHLOROthiazide (HYDRODIURIL, ESIDRIX) 25 mg tablet Take 1 tablet by mouth once daily. amLODIPine (NORVASC) 5 mg tablet Take 1 tablet by mouth once daily. tamsulosin (FLOMAX) 0.4 mg Take 1 capsule by mouth daily at bedtime. atorvastatin (LIPITOR) 20 mg tablet Take 1 tablet by mouth once daily. losartan (COZAAR) 100 mg tablet Take 1 tablet by mouth once daily. metoprolol succinate ER (TOPROL XL) 25 mg 24 hr tablet Take 1 tablet by mouth once daily. albuterol HFA (VENTOLIN HFA) 90 mcg/actuation inhaler Inhale 2 Puffs as instructed every 4 hours asneeded for Wheezing/Shortness of Breath. fluticasone (FLONASE) 50 mcg/actuation nasal spray Use 1 [place] in each nostril once daily. Rinse mouth after use. hydroxychloroquine (PLAQUENIL) 200 mg tablet Take 200 mg by mouth once daily. Comp Stocking,Knee,Regular,Med misc 2 Each once daily. (Patient not taking: Reported on 04/07/2022) Current Facility-Administered Medications Medication Dose Route Frequency perflutren lipid microspheres 1.3 mL in NaCl (PF) 0.9% 10 mL injection (DEFINITY) INTRAVENOUS DIRECTED PRN sodium chloride 0.9 % (flush) 10 mL (BD POSIFLUSH) 10 mL INTRAVENOUS DIRECTED PRN ALLERGIES: ALLERGIES Allergen Reactions Simvastatin Intolerance myalgias PAST MEDICAL HISTORY Diagnosis Date Aortic stenosis mild Hyperglycemia Hyperlipidemia Hypertension IMPOTENCE, ORGANIC ORIGN Kidney congenitally absent, right L-S radiculopathy right leg, Stenosis on lumbar MRI Obesity Personal history of colonic polyps PAST SURGICAL HISTORY Procedure Laterality Date APPENDECTOMY COLONOSCOPY 10/05/2018 COLONOSCOPY FLX DX W/COLLJ SPEC WHEN PFRMD 09/05/13 normal colon - prior polyps 5 year follow up COLSC FLX W/RMVL OF TUMOR POLYP LESION SNARE TQ 01/20/2005 COLSC FLX W/RMVL OF TUMOR POLYP LESION SNARE TQ 06/13/10 polyps cecum and 45cm, tubular adenomas RPR 1ST INGUN HRNA AGE 5 YRS/> REDUCIBLE Hernia repair, inguinal bilateral RX RIB FRACTURE W 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 REVIEW OF SYSTEMS GI: Negative for change in bowel habit : Negative All other reviewed and negative other than HPI. HEALTH MAINTENANCE: Reviewed health maintenance issues today and recommended the following in detail. SHINGRIX VACCINE(1 of 2) Never done DTAP,TDAP,TD(1 - Tdap) due on 2011 DEPRESSION ASSESSMENT- done COVID-19 VACCINE(4 - Booster for Moderna series) due on 07/16/2021 INFLUENZA(1) due on 03/12/2022 Has dpoa. His is his surrogate. VITALS: BP 122/74 Pulse 76 Wt 104.8 kg (231 lb) SpO2 95% BMI 36.18 kg/m Last 4 Encounter Wt Readings: Date: Wt: 05/14/2022 104.8 kg (231 lb) 04/07/2022 104.3 kg (230 lb) 11/07/2021 102.5 kg (226 lb) 08/04/2021 108.4 kg (239 lb) PHYSICAL EXAMINATION: General appearance: Well appearing, alert, in no acute distress, well-hydrated, well nourished. Skin: Skin color, texture, turgor normal, no suspicious rashes or lesions Head: Normocephalic, no masses, lesions, tenderness or abnormalities Eyes: Anicteric sclera. Pupils are equally round and reactive to light. Extraocular movements are intact. Back: Normal exam Lungs: Lungs clear to auscultation. No wheezing, rhonchi, rales Heart: RRR, soft murmur that is known Abdomen: Normal abdominal exam, Abdomen soft, non-tender. Bowel sounds normal. No masses, organomegaly Extremities: No deformities, edema, skin discoloration, clubbing or cyanosis. Good capillary refill. Musculoskeletal: No joint swelling, deformity, or tenderness Peripheral pulses: Normal Neuro: Negative. ASSESSMENT/PLAN: - watch diet. - HGB A1C 2. Need for influenza vaccination - ICD9: V04.81, ICD10: Z23 - INFLUENZA SEASONAL QUADRIVALENT HIGH DOSE AGE 65+ 3. Aortic valve stenosis, etiology of cardiac valve disease unspecified - ICD9: 424.1, ICD10: I35.0 - per cardiology. Monitor progress. 4. Hyperlipidemia, unspecified hyperlipidemia type - ICD9: 272.4, ICD10: E78.5 - good control - Continue current medication. 5. Essential hypertension, benign - ICD9: 401.1, ICD10: I10 - good control - Goal of BP <130/80 6. Inflammatory polyarthritis (HCC) - ICD9: 714.9, ICD10: M06.4 - per rheum 7. Spinal stenosis of lumbar region, unspecified whether neurogenic claudication present - ICD9: 724.02, ICD10: M48.061 - call if any issues. Miguelangel Courtney RTO in six months and prn. documented in this encounterFort [facility]10-[facility]22 Miscellaneous Notes* Telephone Encounter - Rashard Frazier LPN - 05/08/2022 11:05 AM EDT Pt notified. Rashard Frazier LPN * Telephone Encounter - Uzma Hanley APRN.CNP - 05/08/2022 10:35 AM EDT Orders for fasting labs placed. Can please let patient know. Uzma Hanley APRN.CNP * Telephone Encounter - Katherine Mcnair - 05/07/2022 8:50 AM EDT Patient came in to complete lab work before his upcoming appointment. There are no lab orders in the system. Please add lab orders and call patient once they are put in. Phone number on file verified. Katherine Mcnair documented in this encounterFort Hamilton Hospital09-27-2022 History of Present illness Narrative* Stephon Negron PA-C - 04/07/2022 9:30 AM EDT Images from the original note were not included. [facility] PATIENT INFO: Goran Gabriel 76 year old [facility]# [id number] Some elements copied from my previous note, which have been updated where appropriate, and all reflect current medical decision making from date of this visit. PCP: Miguelangel Courtney MD CHIEF COMPLAINT: BPH HPI: This is a 76 year old male with a Solitary Kidney, who has BPH with Nocturia and Flomax has decreased his Nocturia to 1 time, it has now increase to 2-3 times , but at this time he is not bothered byit still the same but not interested in Traitement today And will let us know if that changes. Continue Following with Dr. Cerrato ( Nephrology) for proteinuria VOIDING SYMPTOMS: NTF: 1 time ALLERGY: ALLERGIES Allergen Reactions Simvastatin Intolerance myalgias MEDICATIONS: Current Outpatient Medications Medication Sig Dispense Refill hydroCHLOROthiazide (HYDRODIURIL, ESIDRIX) 25 mg tablet Take 1 tablet by mouth once daily. 90 tablet 3 amLODIPine (NORVASC) 5 mg tablet Take 1 tablet by mouth once daily. 90 tablet 3 tamsulosin (FLOMAX) 0.4 mg Take 1 capsule by mouth daily at bedtime. 90 capsule 3 atorvastatin (LIPITOR) 20 mg tablet Take 1 tablet by mouth once daily. 90 tablet 3 losartan (COZAAR) 100 mg tablet Take 1 tablet by mouth once daily. 90 tablet 3 metoprolol succinate ER (TOPROL XL) 25 mg 24 hr tablet Take 1 tablet by mouth once daily. 90 tablet3 albuterol HFA (VENTOLIN HFA) 90 mcg/actuation inhaler Inhale 2 Puffs as instructed every 4 hours asneeded for Wheezing/Shortness of Breath. 18 g 3 fluticasone (FLONASE) 50 mcg/actuation nasal spray Use 1 [place] in each nostril once daily. Rinse mouth after use. 3 Bottle 3 hydroxychloroquine (PLAQUENIL) 200 mg tablet Take 200 mg by mouth once daily. Comp Stocking,Knee,Regular,Med misc 2 Each once daily. (Patient not taking: Reported on 04/07/2022) 2 Each 1 Current Facility-Administered Medications Medication Dose Route Frequency Provider Last Rate Last Admin perflutren lipid microspheres 1.3 mL in NaCl (PF) 0.9% 10 mL injection (DEFINITY) INTRAVENOUS DIRECTED PRN Chema Oreilly MD sodium chloride 0.9 % (flush) 10 mL (BD POSIFLUSH) 10 mL INTRAVENOUS DIRECTED PRN Chema Oreilly MD Past Medical History PAST MEDICAL HISTORY Diagnosis Date Aortic stenosis mild Hyperglycemia Hyperlipidemia Hypertension IMPOTENCE, ORGANIC ORIGN Kidney congenitally absent, right L-S radiculopathy right leg, Stenosis on lumbar MRI Obesity Personal history of colonic polyps REVIEW OF SYSTEMS: General: General: Well developed, well nourished. No acute distress No change in ROS since last urology visit Physical Examination: Blood pressure 120/70, pulse 98, temperature 36.1 C (97 F), temperature source Temporal, resp. rate16, height 170.2 cm (5' 7), weight 104.3 kg (230 lb), SpO2 92 %. General Appearance/ Constitutional: Well developed, well nourished, and in no apparent distress Prostate: About 40 gm, non tender, no nodules LABS: Results for orders placed or performed in visit on 04/07/22 UA DIP, URINE (POC) Result Value Ref Range GLUCOSE UA (POCT) Negative Negative mg/dL BILIRUBIN UA (POCT) Negative Negative KETONE UA (POCT) Negative Negative mg/dL SPECIFIC GRAVITY UA (POCT) 1.020 1.005 - 1.030 HEMOGLOBIN/BLOOD UA (POCT) Negative Negative PH UA (POCT) 7.0 4.5 - 8.0 PROTEIN UA (POCT) Negative Negative mg/dL UROBILINOGEN UA (POCT) 0.2 Normal E.U./dL NITRITE UA (POCT) Negative Negative LEUKOCYTES UA (POCT) Negative Negative COLOR UA (POCT) Light yellow CLARITY UA (POCT) Clear Creatinine Date Value Ref Range Status 10/31/2021 1.02 0.73 - 1.22 mg/dL Final 10/24/2020 1.01 0.73 - 1.22 mg/dL Final 05/16/2020 1.01 0.73 - 1.22 mg/dL Final 11/28/2019 1.06 0.73 - 1.22 mg/dL Final IMPRESSION / PLAN: > History of BPH w LUTS > PSA today > Flomax 0.4 mg - Refilled > Hx of Solitary Kidney > Proteinuria > Following by Dr. Cerrato - Nephrology > 1 year Appt w/ JOSE A Kraus MT, PA-C with PSA prior JOSE A Whelan MT, PA-C * Kayce Guillen LPN - 04/07/2022 8:58 AM EDT Verified name and date of . CC Post Void Residual HPI: Goran Gabriel is a 76 year old male. The patient is here now for an appointment with JOSE A Whelan MT, PA-COV. Procedure: Explained procedure to patient and verbalizes understanding. Performed a PVR. Patient urinated and instructed to empty bladder as much as possible just prior to having PVR done using bladder ultrasound scanner. Results of scan: 0 mL The patient tolerated the procedure well. Plan: Appointment with Stephon. documented in this encounterFort Hamilton Hospital08-22-2022 Miscellaneous Notes* Telephone Encounter - Rashard Frazier LPN - 03/02/2022 11:56 AM EDT SULY 11/07/21 NOV 05/14/22 * Telephone Encounter - [facility] [place] - 03/02/2022 11:45 AM EDT Patient has been identified by name and date of : Yes Requested Prescriptions Pending Prescriptions Disp Refills hydroCHLOROthiazide (HYDRODIURIL, ESIDRIX) 25 mg tablet 90 tablet 3 Sig: Take 1 tablet by mouth once daily. RX INSTRUCTIONS: Patient aware RX will be sent to pharmacy. No need to notify patient. [facility] documented in this encounterFort Hamilton Hospital04-29-2022 History of Present illness Narrative* Miguelangel Courtney MD - 11/07/2021 8:49 AM EDT Patient presents with: 6 Month Exam HPI: Patient presents today for office visit for follow up. HLD: The 10-year ASCVD risk score ([place] Jr., et al., 2013) is: 34.9% Values used to calculate the score: Age: 76 years Sex: Male Is Non- : No Diabetic: No Tobacco smoker: No Systolic Blood Pressure: 136 mmHg Is BP treated: Yes HDL Cholesterol: 41 mg/dL Total Cholesterol: 206 mg/dL Had some issues with simvastatin in the past. Was remotely on lipitor for years and tolerated well.Just had to go off due to insurance coverage. Has seen Cardiology. Will be following regularly No chest pain No shortness of breath. No edema. Still following with Dr. Pittman: meds are working. Sugars have been stable. Does get some occasional nasal congestion. flonase does as well. Seeing urology for his urine which is doing well. Also follows annually with Dr. Saqib Briceno Latest Ref Rng & Units 10/31/2021 WBC 3.70 - 11.00 k/uL 8.08 RBC 4.20 - 6.00 m/uL 4.58 Hemoglobin 13.0 - 17.0 g/dL 13.8 Hematocrit 39.0 - 51.0 % 43.2 MCV 80.0 - 100.0 fL 94.3 MCH 26.0 - 34.0 pg 30.1 MCHC 30.5 - 36.0 g/dL 31.9 RDW-CV 11.5 - 15.0 % 12.5 Platelet Count 150 - 400 k/uL 214 MPV 9.0 - 12.7 fL 11.0 Neut% % 73.3 Abs Neut (ANC) 1.45 - 7.50 k/uL 5.92 Lymph% % 15.7 Abs Lymph 1.00 - 4.00 k/uL 1.27 [place]% % 8.3 Abs [place] <0.87 k/uL 0.67 Eosin% % 1.6 Abs Eosin <0.46 k/uL 0.13 Baso% % 0.4 Abs Baso <0.11 k/uL 0.03 Immature Gran % % 0.7 IMMATURE GRANS (ABS) <0.10 k/uL 0.06 NRBC /100 WBC 0.0 Absolute nRBC <0.01 k/uL <0.01 DTYPE Auto Protein, Total 6.3 - 8.0 g/dL 7.2 Albumin 3.9 - 4.9 g/dL 4.4 Calcium 8.5 - 10.2 mg/dL 9.6 Bilirubin, Total 0.2 - 1.3 mg/dL 0.5 Alkaline Phosphatase 38 - 113 U/L 79 AST 14 - 40 U/L 24 ALT 10 - 54 U/L 16 Glucose 74 - 99 mg/dL 106 (H) BUN 9 - 24 mg/dL 20 Creatinine 0.73 - 1.22 mg/dL 1.02 Sodium 136 - 144 mmol/L 138 Potassium 3.7 - 5.1 mmol/L 4.3 Chloride 97 - 105 mmol/L 100 CO2 22 - 30 mmol/L 28 Anion Gap 9 - 18 mmol/L 10 eGFR >=60 mL/min/1.73m 76 Cholesterol, Total <200 mg/dL 206 (H) Triglyceride <150 mg/dL 123 HDL Cholesterol >39 mg/dL 41 Non HDL Cholesterol <130 mg/dL 165 (H) Fasting Time hrs 13 VLDL Cholesterol <30 mg/dL 25 TC:HDL Ratio <5.10 5.02 LDL Cholesterol <100 mg/dL 140 (H) LDL:HDL Ratio <2.54 3.41 (H) Hemoglobin A1C 4.3 - 5.6 % 6.1 (H) Estimated Average Glucose mg/dL 128 PSA <2.60 ng/mL 0.86 MEDICATIONS: Current Outpatient Medications Medication Sig losartan (COZAAR) 100 mg tablet Take 1 tablet by mouth once daily. metoprolol succinate ER (TOPROL XL) 25 mg 24 hr tablet Take 1 tablet by mouth once daily. amLODIPine (NORVASC) 5 mg tablet Take 1 tablet by mouth once daily. hydroCHLOROthiazide (HYDRODIURIL, ESIDRIX) 25 mg tablet Take 1 tablet by mouth once daily. tamsulosin (FLOMAX) 0.4 mg Take 1 capsule by mouth daily at bedtime. fluticasone (FLONASE) 50 mcg/actuation nasal spray Use 1 [place] in each nostril once daily. Rinse mouth after use. hydroxychloroquine (PLAQUENIL) 200 mg tablet Take 200 mg by mouth once daily. albuterol HFA (VENTOLIN HFA) 90 mcg/actuation inhaler Inhale 2 Puffs as instructed every 4 hours asneeded for Wheezing/Shortness of Breath. Comp Stocking,Knee,Regular,Med misc 2 Each once daily. Current Facility-Administered Medications Medication Dose Route Frequency perflutren lipid microspheres 1.3 mL in NaCl (PF) 0.9% 10 mL injection (DEFINITY) INTRAVENOUS DIRECTED PRN sodium chloride 0.9 % (flush) 10 mL (BD POSIFLUSH) 10 mL INTRAVENOUS DIRECTED PRN ALLERGIES: ALLERGIES Allergen Reactions Simvastatin Intolerance myalgias PAST MEDICAL HISTORY Diagnosis Date Aortic stenosis mild Hyperglycemia Hyperlipidemia Hypertension IMPOTENCE, ORGANIC ORIGN Kidney congenitally absent, right L-S radiculopathy right leg, Stenosis on lumbar MRI Obesity Personal history of colonic polyps PAST SURGICAL HISTORY Procedure Laterality Date APPENDECTOMY COLONOSCOPY 10/05/2018 COLONOSCOPY FLX DX W/COLLJ SPEC WHEN PFRMD 09/05/13 normal colon - prior polyps 5 year follow up COLSC FLX W/RMVL OF TUMOR POLYP LESION SNARE TQ 01/20/2005 COLSC FLX W/RMVL OF TUMOR POLYP LESION SNARE TQ 06/13/10 polyps cecum and 45cm, tubular adenomas RPR 1ST INGUN HRNA AGE 5 YRS/> REDUCIBLE Hernia repair, inguinal bilateral RX RIB FRACTURE W 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 REVIEW OF SYSTEMS GI: Negative for change in bowel habit SKIN: Negative for lesions, rash, and itching All other reviewed and negative other than HPI. HEALTH MAINTENANCE: Reviewed health maintenance issues today and recommended the following in detail. SHINGRIX VACCINE(1 of 2) Never done DEPRESSION SCREENING-done. ADVANCE DIRECTIVE DISCUSSION-Discussed advanced planning with patient today. They have a DPOA/Living Will:Yes Chosen surrogate for decision maker:his Reminded patients to have copies of their forms brought into the office to have placed in their medical records. Questions were answered. COVID-19 VACCINE(4 - Booster for Moderna series) due on 08/21/2021 VITALS: BP 136/82 Pulse 68 Wt 102.5 kg (226 lb) BMI 35.47 kg/m Last 4 Encounter Wt Readings: Date: Wt: 11/07/2021 102.5 kg (226 lb) 08/04/2021 108.4 kg (239 lb) 05/07/2021 105.7 kg (233 lb) 02/11/2021 108.6 kg (239 lb 6.4 oz) PHYSICAL EXAMINATION: General appearance: Well appearing, alert, in no acute distress, well-hydrated, well nourished. Skin: Skin color, texture, turgor normal, no suspicious rashes or lesions Head: Normocephalic, no masses, lesions, tenderness or abnormalities Neck: Supple, no adenopathy; thyroid symmetric, normal size, no bruits Lungs: Lungs clear to auscultation. No wheezing, rhonchi, rales Heart: RRR, murmur unchanged. , gallop, or rubs. No ectopy Abdomen: Normal abdominal exam, Abdomen soft, non-tender. Bowel sounds normal. No masses, organomegaly Extremities: No deformities, edema, skin discoloration, clubbing or cyanosis. Good capillary refill. Musculoskeletal: No joint swelling, deformity, or tenderness Peripheral pulses: Normal Neuro: Negative. ASSESSMENT/PLAN: 1. Mixed hyperlipidemia - ICD9: 272.2, ICD10: E78.2 (primary diagnosis) - Discussed risks and benefits of new medication with the patient. Advised them to call if any sideeffects or questions. - labs in six weeks. - ATORVASTATIN 20 MG TABLET - HEPATIC FUNCTION PNL - LIPID PANEL BASIC 2. Benign prostatic hyperplasia without lower urinary tract symptoms - ICD9: 600.00, ICD10: N40.0 - TAMSULOSIN 0.4 MG CAPSULE 3. Aortic valve disorder - ICD9: 424.1, ICD10: I35.9 - per cardiology - 4. Inflammatory polyarthritis (HCC) - ICD9: 714.9, ICD10: M06.4 - per rheum. 5. Prediabetes - ICD9: 790.29, ICD10: R73.03 - follow labs 6. Aortic valve stenosis, etiology of cardiac valve disease unspecified - ICD9: 424.1, ICD10: I35.0 - as above. 7. Essential hypertension, benign - ICD9: 401.1, ICD10: I10 - good control - Continue current medication(s) - Goal of BP <130/80 8. Kidney congenitally absent, right - ICD9: 753.0, ICD10: Q60.0 - labs are stable. Miguelangel Courtney RTO in six months and prn. documented in this encounterFort [facility] Hospital01-24-2022 History of Past illness Narrative* Problem Noted Date Resolved Date Aortic valve disorder 08/04/2021 05/14/2022 Acute deep vein thrombosis ( DVT) of distal end of right lower extremity 01/16/2019 02/17/2019 Screening for ischemic heart disease 01/16/2019 05/14/2022 History of cellulitis 01/16/2019 05/07/2021 Acute deep vein thrombosis ( DVT) of femoral vein of right lower extremity 01/13/2019 10/30/2020 Overview: Begun on treatment 01/13 Last Assessment & Plan: Plan on treatment for six months. hypercoag panel after. Was provoked by surgery and inactivity. Cellulitis of right hand 11/28/2018 019 Last Assessment & Plan: Continues to improve but still some swelling in the area around the thumb and wrist He worsened with previous 24 hour hospitalization and on oral antibiotics MRI hand reviewed and no abscess or fluid collection Seen by ortho and no abscess or tenosynovitis Change to unasyn D/w Dr. Mahoney Observe on IV abx one more day, if continues to improve then home on augmentin Neck pain 11/28/2018 01/16/2019 Last Assessment & Plan: Continue PRN muscle relaxer as he was taking prior to admission Osteoarthritis of both shoulders 02/24/2017 10/30/2020 Left hip pain 02/24/2017 01/16/2019 Abnormal glucose 02/13/2013 10/30/2020 Sciatica 02/13/2013 10/29/2016 Obesity 02/13/2013 05/14/2022 Left knee sprain 12/09/2012 09/26/2014 L-S radiculopathy 05/21/2012 05/14/2022 Pain in joint, shoulder region 06/21/2006 0 09/26/2014 documented as of this encounter (statuses as of 05/14/2022) [facility] of Past illness Narrative* Problem Noted Date Resolved Date Aortic valve disorder 08/04/2021 05/14/2022 Acute deep vein thrombosis ( DVT) of distal end of right lower extremity 01/16/2019 02/17/2019 Screening for ischemic heart disease 01/16/2019 05/14/2022 History of cellulitis 01/16/2019 05/07/2021 Acute deep vein thrombosis ( DVT) of femoral vein of right lower extremity 01/13/2019 10/30/2020 Overview: Begun on treatment 01/13 Last Assessment & Plan: Plan on treatment for six months. hypercoag panel after. Was provoked by surgery and inactivity. Cellulitis of right hand 11/28/2018 05/ 019 Last Assessment & Plan: Continues to improve but still some swelling in the area around the thumb and wrist He worsened with previous 24 hour hospitalization and on oral antibiotics MRI hand reviewed and no abscess or fluid collection Seen by ortho and no abscess or tenosynovitis Change to unasyn D/w Dr. Mahoney Observe on IV abx one more day, if continues to improve then home on augmentin Neck pain 11/28/2018 01/16/2019 Last Assessment & Plan: Continue PRN muscle relaxer as he was taking prior to admission Osteoarthritis of both shoulders 02/24/2017 10/30/2020 Left hip pain 02/24/2017 01/16/2019 Abnormal glucose 02/13/2013 10/30/2020 Sciatica 02/13/2013 10/29/2016 Obesity 02/13/2013 05/14/2022 Left knee sprain 12/09/2012 09/26/2014 L-S radiculopathy 05/21/2012 05/14/2022 Pain in joint, shoulder region 06/21/2006 0 09/26/2014 documented as of this encounter (statuses as of 07/22/2022) [facility] illness Narrative* Problem Noted Date Resolved Date Aortic valve disorder 08/04/2021 05/14/2022 Acute deep vein thrombosis ( DVT) of distal end of right lower extremity 01/16/2019 02/17/2019 Screening for ischemic heart disease 01/16/2019 05/14/2022 History of cellulitis 01/16/2019 05/07/2021 Acute deep vein thrombosis ( DVT) of femoral vein of right lower extremity 01/13/2019 10/30/2020 Overview: Begun on treatment 01/13 Last Assessment & Plan: Plan on treatment for six months. hypercoag panel after. Was provoked by surgery and inactivity. Cellulitis of right hand 11/28/2018 05/ 019 Last Assessment & Plan: Continues to improve but still some swelling in the area around the thumb and wrist He worsened with previous 24 hour hospitalization and on oral antibiotics MRI hand reviewed and no abscess or fluid collection Seen by ortho and no abscess or tenosynovitis Change to unasyn D/w Dr. Mahoney Observe on IV abx one more day, if continues to improve then home on augmentin Neck pain 11/28/2018 01/16/2019 Last Assessment & Plan: Continue PRN muscle relaxer as he was taking prior to admission Osteoarthritis of both shoulders 02/24/2017 10/30/2020 Left hip pain 02/24/2017 01/16/2019 Abnormal glucose 02/13/2013 10/30/2020 Sciatica 02/13/2013 10/29/2016 Obesity 02/13/2013 05/14/2022 Left knee sprain 12/09/2012 09/26/2014 L-S radiculopathy 05/21/2012 05/14/2022 Pain in joint, shoulder region 06/21/2006 0 09/26/2014 documented as of this encounter (statuses as of 09/28/2022) [facility] illness Narrative* Problem Noted Date Resolved Date Aortic valve disorder 08/04/2021 05/14/2022 Acute deep vein thrombosis ( DVT) of distal end of right lower extremity 01/16/2019 02/17/2019 Screening for ischemic heart disease 01/16/2019 05/14/2022 History of cellulitis 01/16/2019 05/07/2021 Acute deep vein thrombosis ( DVT) of femoral vein of right lower extremity 01/13/2019 10/30/2020 Overview: Begun on treatment 01/13 Last Assessment & Plan: Plan on treatment for six months. hypercoag panel after. Was provoked by surgery and inactivity. Cellulitis of right hand 11/28/2018 019 Last Assessment & Plan: Continues to improve but still some swelling in the area around the thumb and wrist He worsened with previous 24 hour hospitalization and on oral antibiotics MRI hand reviewed and no abscess or fluid collection Seen by ortho and no abscess or tenosynovitis Change to unasyn D/w Dr. Mahoney Observe on IV abx one more day, if continues to improve then home on augmentin Neck pain 11/28/2018 01/16/2019 Last Assessment & Plan: Continue PRN muscle relaxer as he was taking prior to admission Osteoarthritis of both shoulders 02/24/2017 10/30/2020 Left hip pain 02/24/2017 01/16/2019 Abnormal glucose 02/13/2013 10/30/2020 Sciatica 02/13/2013 10/29/2016 Obesity 02/13/2013 05/14/2022 Left knee sprain 12/09/2012 09/26/2014 L-S radiculopathy 05/21/2012 05/14/2022 Pain in joint, shoulder region 06/21/2006 0 09/26/2014 documented as of this encounter (statuses as of 10/19/2022) [facility] Narrative* Problem Noted Date Resolved Date Aortic valve disorder 08/04/2021 05/14/2022 Acute deep vein thrombosis ( DVT) of distal end of right lower extremity 01/16/2019 02/17/2019 Screening for ischemic heart disease 01/16/2019 05/14/2022 History of cellulitis 01/16/2019 05/07/2021 Acute deep vein thrombosis ( DVT) of femoral vein of right lower extremity 01/13/2019 10/30/2020 Overview: Begun on treatment 01/13 Last Assessment & Plan: Plan on treatment for six months. hypercoag panel after. Was provoked by surgery and inactivity. Cellulitis of right hand 11/28/2018 019 Last Assessment & Plan: Continues to improve but still some swelling in the area around the thumb and wrist He worsened with previous 24 hour hospitalization and on oral antibiotics MRI hand reviewed and no abscess or fluid collection Seen by ortho and no abscess or tenosynovitis Change to unasyn D/w Dr. Mahoney Observe on IV abx one more day, if continues to improve then home on augmentin Neck pain 11/28/2018 01/16/2019 Last Assessment & Plan: Continue PRN muscle relaxer as he was taking prior to admission Osteoarthritis of both shoulders 02/24/2017 10/30/2020 Left hip pain 02/24/2017 01/16/2019 Abnormal glucose 02/13/2013 10/30/2020 Sciatica 02/13/2013 10/29/2016 Obesity 02/13/2013 05/14/2022 Left knee sprain 12/09/2012 09/26/2014 L-S radiculopathy 05/21/2012 05/14/2022 Pain in joint, shoulder region 06/21/2006 0 09/26/2014 documented as of this encounter (statuses as of 11/09/2022) [facility] Narrative* Problem Noted Date Resolved Date Aortic valve disorder 08/04/2021 05/14/2022 Other proteinuria 07/21/2019 11/11/2022 Overview: Dr. Cerrato Acute deep vein thrombosis ( DVT) of distal end of right lower extremity 01/16/2019 02/17/2019 Screening for ischemic heart disease 01/16/2019 05/14/2022 History of cellulitis 01/16/2019 05/07/2021 Acute deep vein thrombosis ( DVT) of femoral vein of right lower extremity 01/13/2019 10/30/2020 Overview: Begun on treatment 01/13 Last Assessment & Plan: Plan on treatment for six months. hypercoag panel after. Was provoked by surgery and inactivity. Cellulitis of right hand 11/28/2018 019 Last Assessment & Plan: Continues to improve but still some swelling in the area around the thumb and wrist He worsened with previous 24 hour hospitalization and on oral antibiotics MRI hand reviewed and no abscess or fluid collection Seen by ortho and no abscess or tenosynovitis Change to unasyn D/w Dr. Mahoney Observe on IV abx one more day, if continues to improve then home on augmentin Neck pain 11/28/2018 01/16/2019 Last Assessment & Plan: Continue PRN muscle relaxer as he was taking prior to admission Osteoarthritis of both shoulders 02/24/2017 10/30/2020 Left hip pain 02/24/2017 01/16/2019 Abnormal glucose 02/13/2013 10/30/2020 Sciatica 02/13/2013 10/29/2016 Obesity 02/13/2013 05/14/2022 Left knee sprain 12/09/2012 09/26/2014 L-S radiculopathy 05/21/2012 05/14/2022 Pain in joint, shoulder region 06/21/2006 0 09/26/2014 documented as of this encounter (statuses as of 11/11/2022) [facility] Narrative* Problem Noted Date Diagnosed Date Resolved Date Aortic valve disorder 08/04/20212021 Acute deep vein thrombosis ( DVT) of distal end of right lower extremity 01/16/2019 02/17/2019 Screening for ischemic heart disease 01/16/2019 05/14/2022 History of cellulitis 01/16/20192020 Acute deep vein thrombosis ( DVT) of femoral vein of right lower extremity 01/13/2019 10/30/2020 Overview: Begun on treatment 01/13 Last Assessment & Plan: Plan on treatment for six months. hypercoag panel after. Was provoked by surgery and inactivity. Cellulitis of right hand 11/28/2018 Last Assessment & Plan: Continues to improve but still some swelling in the area around the thumb and wrist He worsened with previous 24 hour hospitalization and on oral antibiotics MRI hand reviewed and no abscess or fluid collection Seen by ortho and no abscess or tenosynovitis Change to unasyn D/w Dr. Mahoney Observe on IV abx one more day, if continues to improve then home on augmentin Neck pain 11/28/2018 01/16/2019 Last Assessment & Plan: Continue PRN muscle relaxer as he was taking prior to admission Osteoarthritis of both shoulders 02/24/2017 10/30/2020 Left hip pain 02/24/2017 01/16/2019 Abnormal glucose 02/13/2013 10/30/2020 Sciatica 02/13/2013 10/29/2016 Obesity 02/13/2013 05/14/2022 Left knee sprain 12/09/2012 09/26/2014 L-S radiculopathy 05/21/2012 05/14/2022 Pain in joint, shoulder region 06/21/2006 09/26/2014 documented as of this encounter (statuses as of 05/25/2023) [facility]07[facility] History of Past illness Narrative* Problem Noted Date Resolved Date Acute deep vein thrombosis ( DVT) of distal end of right lower extremity 01/16/2019 02/17/2019 History of cellulitis 01/16/2019 05/07/2021 Acute deep vein thrombosis ( DVT) of femoral vein of right lower extremity 01/13/2019 10/30/2020 Overview: Begun on treatment 01/13 Last Assessment & Plan: Plan on treatment for six months. hypercoag panel after. Was provoked by surgery and inactivity. Cellulitis of right hand 11/28/2018 019 Last Assessment & Plan: Continues to improve but still some swelling in the area around the thumb and wrist He worsened with previous 24 hour hospitalization and on oral antibiotics MRI hand reviewed and no abscess or fluid collection Seen by ortho and no abscess or tenosynovitis Change to unasyn D/w Dr. Mahoney Observe on IV abx one more day, if continues to improve then home on augmentin Neck pain 11/28/2018 01/16/2019 Last Assessment & Plan: Continue PRN muscle relaxer as he was taking prior to admission Osteoarthritis of both shoulders 02/24/2017 10/30/2020 Left hip pain 02/24/2017 01/16/2019 Abnormal glucose 02/13/2013 10/30/2020 Sciatica 02/13/2013 10/29/2016 Left knee sprain 12/09/2012 09/26/2014 Pain in joint, shoulder region 06/21/2006 0 09/26/2014 documented as of this encounter (statuses as of 11/07/2021) [facility] History of Past illness Narrative* Problem Noted Date Resolved Date Acute deep vein thrombosis ( DVT) of distal end of right lower extremity 01/16/2019 02/17/2019 History of cellulitis 01/16/2019 05/07/2021 Acute deep vein thrombosis ( DVT) of femoral vein of right lower extremity 01/13/2019 10/30/2020 Overview: Begun on treatment 01/13 Last Assessment & Plan: Plan on treatment for six months. hypercoag panel after. Was provoked by surgery and inactivity. Cellulitis of right hand 11/28/2018 019 Last Assessment & Plan: Continues to improve but still some swelling in the area around the thumb and wrist He worsened with previous 24 hour hospitalization and on oral antibiotics MRI hand reviewed and no abscess or fluid collection Seen by ortho and no abscess or tenosynovitis Change to unasyn D/w Dr. Mahoney Observe on IV abx one more day, if continues to improve then home on augmentin Neck pain 11/28/2018 01/16/2019 Last Assessment & Plan: Continue PRN muscle relaxer as he was taking prior to admission Osteoarthritis of both shoulders 02/24/2017 10/30/2020 Left hip pain 02/24/2017 01/16/2019 Abnormal glucose 02/13/2013 10/30/2020 Sciatica 02/13/2013 10/29/2016 Left knee sprain 12/09/2012 09/26/2014 Pain in joint, shoulder region 06/21/2006 0 09/26/2014 documented as of this encounter (statuses as of 03/02/2022) [facility] History of Past illness Narrative* Problem Noted Date Resolved Date Acute deep vein thrombosis ( DVT) of distal end of right lower extremity 01/16/2019 02/17/2019 History of cellulitis 01/16/2019 05/07/2021 Acute deep vein thrombosis ( DVT) of femoral vein of right lower extremity 01/13/2019 10/30/2020 Overview: Begun on treatment 01/13 Last Assessment & Plan: Plan on treatment for six months. hypercoag panel after. Was provoked by surgery and inactivity. Cellulitis of right hand 11/28/2018 05/2 019 Last Assessment & Plan: Continues to improve but still some swelling in the area around the thumb and wrist He worsened with previous 24 hour hospitalization and on oral antibiotics MRI hand reviewed and no abscess or fluid collection Seen by ortho and no abscess or tenosynovitis Change to unasyn D/w Dr. Mahoney Observe on IV abx one more day, if continues to improve then home on augmentin Neck pain 11/28/2018 01/16/2019 Last Assessment & Plan: Continue PRN muscle relaxer as he was taking prior to admission Osteoarthritis of both shoulders 02/24/2017 10/30/2020 Left hip pain 02/24/2017 01/16/2019 Abnormal glucose 02/13/2013 10/30/2020 Sciatica 02/13/2013 10/29/2016 Left knee sprain 12/09/2012 09/26/2014 Pain in joint, shoulder region 06/21/2006 0 09/26/2014 documented as of this encounter (statuses as of 04/07/2022) [facility] History of Past illness Narrative* Problem Noted Date Resolved Date Acute deep vein thrombosis ( DVT) of distal end of right lower extremity 01/16/2019 02/17/2019 History of cellulitis 01/16/2019 05/07/2021 Acute deep vein thrombosis ( DVT) of femoral vein of right lower extremity 01/13/2019 10/30/2020 Overview: Begun on treatment 01/13 Last Assessment & Plan: Plan on treatment for six months. hypercoag panel after. Was provoked by surgery and inactivity. Cellulitis of right hand 11/28/2018 019 Last Assessment & Plan: Continues to improve but still some swelling in the area around the thumb and wrist He worsened with previous 24 hour hospitalization and on oral antibiotics MRI hand reviewed and no abscess or fluid collection Seen by ortho and no abscess or tenosynovitis Change to unasyn D/w Dr. Mahoney Observe on IV abx one more day, if continues to improve then home on augmentin Neck pain 11/28/2018 01/16/2019 Last Assessment & Plan: Continue PRN muscle relaxer as he was taking prior to admission Osteoarthritis of both shoulders 02/24/2017 10/30/2020 Left hip pain 02/24/2017 01/16/2019 Abnormal glucose 02/13/2013 10/30/2020 Sciatica 02/13/2013 10/29/2016 Left knee sprain 12/09/2012 09/26/2014 Pain in joint, shoulder region 06/21/2006 0 09/26/2014 documented as of this encounter (statuses as of 05/08/2022) [facility] Mixed hyperlipidemia- Primary Benign prostatic hyperplasia without lower urinary tract symptoms Aortic valve disorder Aortic valve disorders Inflammatory polyarthritis (HCC) Unspecified inflammatory polyarthropathy Prediabetes Other abnormal glucose Aortic valve stenosis, etiology of cardiac valve disease unspecified Essential hypertension, benign Kidney congenitally absent, right Congenital renal agenesis and dysgenesis [facility] noteNo assessment information availableW[facility] Work Phone: Evaluation note* Diagnosis Essential hypertension Unspecified essential hypertension [facility] Diagnosis BPH associated with nocturia- Primary Hypertrophy of prostate with urinary obstruction and other lower urinary tract symptoms (LUTS) [facility]* Diagnosis Essential hypertension- Primary Unspecified essential hypertension Essential hypertension, benign Inflammatory polyarthritis (HCC) Unspecified inflammatory polyarthropathy Prediabetes Other abnormal glucose Mixed hyperlipidemia [facility] Diagnosis Prediabetes- Primary Other abnormal glucose Need for influenza vaccination Need for prophylactic vaccination and inoculation against influenza Aortic valve stenosis, etiology of cardiac valve disease unspecified Hyperlipidemia, unspecified hyperlipidemia type Essential hypertension, benign Inflammatory polyarthritis (HCC) Unspecified inflammatory polyarthropathy Spinal stenosis of lumbar region, unspecified whether neurogenic claudication present [facility] Diagnosis Essential hypertension, benign Edema of leg Edema Mixed hyperlipidemia [facility] Aortic valve stenosis, etiology of cardiac valve disease unspecified- Primary Essential hypertension, benign [facility] Mixed hyperlipidemia [facility]* Diagnosis Essential hypertension, benign- Primary Hyperlipidemia, unspecified hyperlipidemia type [facility] Diagnosis Essential hypertension, benign- Primary Aortic valve stenosis, etiology of cardiac valve disease unspecified Hyperlipidemia, unspecified hyperlipidemia type Inflammatory polyarthritis (HCC) Unspecified inflammatory polyarthropathy Prediabetes Other abnormal glucose Renal insufficiency Unspecified disorder of kidney and ureter [facility] Diagnosis BPH associated with nocturia- Primary Hypertrophy of prostate with urinary obstruction and other lower urinary tract symptoms (LUTS) Kidney congenitally absent, right Congenital renal agenesis and dysgenesis [facility] Diagnosis Hyperlipidemia, unspecified hyperlipidemia type- Primary Essential hypertension, benign Aortic valve stenosis, etiology of cardiac valve disease unspecified Other proteinuria Inflammatory polyarthritis (HCC) Unspecified inflammatory polyarthropathy Prediabetes Other abnormal glucose URI, acute Acute upper respiratory infections of unspecified site Wheezing [facility]* Diagnosis Essential hypertension, benign [facility]* Diagnosis Essential hypertension, benign- Primary Nonrheumatic aortic valve stenosis Aortic valve disorders Aortic valve disorder Aortic valve disorders [facility]* Diagnosis Mixed hyperlipidemia [facility]* Diagnosis Anemia, unspecified type- Primary Essential hypertension, benign Prediabetes Other abnormal glucose [facility]* Diagnosis Essential hypertension, benign- Primary Hyperlipidemia, unspecified hyperlipidemia type Aortic valve stenosis, etiology of cardiac valve disease unspecified Inflammatory polyarthritis (HCC) Unspecified inflammatory polyarthropathy Other proteinuria Prediabetes Other abnormal glucose Obesity, Class II, BMI 35-39.9 Obesity, unspecified [facility]* Diagnosis Essential hypertension, benign- Primary Hyperlipidemia, unspecified hyperlipidemia type Aortic valve stenosis, etiology of cardiac valve disease unspecified Other proteinuria Inflammatory polyarthritis (HCC) Unspecified inflammatory polyarthropathy Prediabetes Other abnormal glucose Obesity, Class II, BMI 35-39.9 Obesity, unspecified [facility]* Diagnosis Cellulitis of right hand- Primary Cellulitis and abscess of hand, except fingers and thumb Cellulitis of right hand Cellulitis and abscess of hand, except fingers and thumb Essential hypertension, benign Kidney congenitally absent, right Congenital renal agenesis and dysgenesis Right hand pain Pain in limb Localized swelling on right hand Leukocytosis, unspecified type ESR raised Elevated sedimentation rate CRP elevated Elevated C-reactive protein (CRP) Essential hypertension, benign Essential hypertension Unspecified essential hypertension [facility]* Diagnosis Cellulitis of right hand- Primary Cellulitis and abscess of hand, except fingers and thumb Cellulitis of right hand Cellulitis and abscess of hand, except fingers and thumb Essential hypertension, benign Kidney congenitally absent, right Congenital renal agenesis and dysgenesis Right hand pain Pain in limb Localized swelling on right hand Leukocytosis, unspecified type ESR raised Elevated sedimentation rate CRP elevated Elevated C-reactive protein (CRP) Essential hypertension, benign Benign prostatic hyperplasia without lower urinary tract symptoms [facility]* Diagnosis Cellulitis of right hand- Primary Cellulitis and abscess of hand, except fingers and thumb Cellulitis of right hand Cellulitis and abscess of hand, except fingers and thumb Essential hypertension, benign Kidney congenitally absent, right Congenital renal agenesis and dysgenesis Right hand pain Pain in limb Localized swelling on right hand Leukocytosis, unspecified type ESR raised Elevated sedimentation rate CRP elevated Elevated C-reactive protein (CRP) Essential hypertension, benign URI, acute Acute upper respiratory infections of unspecified site Wheezing [facility]* Diagnosis Cellulitis of right hand- Primary Cellulitis and abscess of hand, except fingers and thumb Cellulitis of right hand Cellulitis and abscess of hand, except fingers and thumb Essential hypertension, benign Kidney congenitally absent, right Congenital renal agenesis and dysgenesis Right hand pain Pain in limb Localized swelling on right hand Leukocytosis, unspecified type ESR raised Elevated sedimentation rate CRP elevated Elevated C-reactive protein (CRP) Essential hypertension, benign Kidney congenitally absent, right Congenital renal agenesis and dysgenesis Wheezing [facility]* Diagnosis Cellulitis of right hand- Primary Cellulitis and abscess of hand, except fingers and thumb Cellulitis of right hand Cellulitis and abscess of hand, except fingers and thumb Essential hypertension, benign Kidney congenitally absent, right Congenital renal agenesis and dysgenesis Right hand pain Pain in limb Localized swelling on right hand Leukocytosis, unspecified type ESR raised Elevated sedimentation rate CRP elevated Elevated C-reactive protein (CRP) Essential hypertension, benign BPH associated with nocturia- Primary Hypertrophy of prostate with urinary obstruction and other lower urinary tract symptoms (LUTS) Kidney congenitally absent, right Congenital renal agenesis and dysgenesis [facility]* Diagnosis Cellulitis of right hand- Primary Cellulitis and abscess of hand, except fingers and thumb Cellulitis of right hand Cellulitis and abscess of hand, except fingers and thumb Essential hypertension, benign Kidney congenitally absent, right Congenital renal agenesis and dysgenesis Right hand pain Pain in limb Localized swelling on right hand Leukocytosis, unspecified type ESR raised Elevated sedimentation rate CRP elevated Elevated C-reactive protein (CRP) Essential hypertension, benign Edema of leg Edema [facility]* Diagnosis Cellulitis of right hand- Primary Cellulitis and abscess of hand, except fingers and thumb Cellulitis of right hand Cellulitis and abscess of hand, except fingers and thumb Essential hypertension, benign Kidney congenitally absent, right Congenital renal agenesis and dysgenesis Right hand pain Pain in limb Localized swelling on right hand Leukocytosis, unspecified type ESR raised Elevated sedimentation rate CRP elevated Elevated C-reactive protein (CRP) Essential hypertension, benign Mixed hyperlipidemia Essential hypertension, benign [facility]* Diagnosis Cellulitis of right hand- Primary Cellulitis and abscess of hand, except fingers and thumb Cellulitis of right hand Cellulitis and abscess of hand, except fingers and thumb Essential hypertension, benign Kidney congenitally absent, right Congenital renal agenesis and dysgenesis Right hand pain Pain in limb Localized swelling on right hand Leukocytosis, unspecified type ESR raised Elevated sedimentation rate CRP elevated Elevated C-reactive protein (CRP) Essential hypertension, benign Hyperlipidemia, unspecified hyperlipidemia type- Primary Essential hypertension, benign Aortic valve stenosis, etiology of cardiac valve disease unspecified Other proteinuria Inflammatory polyarthritis (HCC) Unspecified inflammatory polyarthropathy Varicose veins of both legs with edema Prediabetes Other abnormal glucose Obesity, Class II, BMI 35-39.9 Obesity, unspecified Family history of colon cancer Family history of malignant neoplasm of gastrointestinal tract Anemia, unspecified type [facility]* Diagnosis Cellulitis of right hand- Primary Cellulitis and abscess of hand, except fingers and thumb Cellulitis of right hand Cellulitis and abscess of hand, except fingers and thumb Essential hypertension, benign Kidney congenitally absent, right Congenital renal agenesis and dysgenesis Right hand pain Pain in limb Localized swelling on right hand Leukocytosis, unspecified type ESR raised Elevated sedimentation rate CRP elevated Elevated C-reactive protein (CRP) Essential hypertension, benign Family history of colon cancer- Primary Family history of malignant neoplasm of gastrointestinal tract Anemia, unspecified type [facility]* Diagnosis Cellulitis of right hand- Primary Cellulitis and abscess of hand, except fingers and thumb Cellulitis of right hand Cellulitis and abscess of hand, except fingers and thumb Essential hypertension, benign Kidney congenitally absent, right Congenital renal agenesis and dysgenesis Right hand pain Pain in limb Localized swelling on right hand Leukocytosis, unspecified type ESR raised Elevated sedimentation rate CRP elevated Elevated C-reactive protein (CRP) Essential hypertension, benign Aortic valve disorder- Primary Aortic valve disorders Primary hypertension Unspecified essential hypertension SOB (shortness of breath) Shortness of breath Valvular heart disease Endocarditis, valve unspecified, unspecified cause [facility] Diagnosis Cellulitis of right hand- Primary Cellulitis and abscess of hand, except fingers and thumb Cellulitis of right hand Cellulitis and abscess of hand, except fingers and thumb Essential hypertension, benign Kidney congenitally absent, right Congenital renal agenesis and dysgenesis Right hand pain Pain in limb Localized swelling on right hand Leukocytosis, unspecified type ESR raised Elevated sedimentation rate CRP elevated Elevated C-reactive protein (CRP) Essential hypertension, benign Encounter for preprocedural cardiovascular examination- Primary Pre-operative cardiovascular examination Dyspnea on exertion Other dyspnea and respiratory abnormality Valvular heart disease Endocarditis, valve unspecified, unspecified cause [facility] Diagnosis Cellulitis of right hand- Primary Cellulitis and abscess of hand, except fingers and thumb Cellulitis of right hand Cellulitis and abscess of hand, except fingers and thumb Essential hypertension, benign Kidney congenitally absent, right Congenital renal agenesis and dysgenesis Right hand pain Pain in limb Localized swelling on right hand Leukocytosis, unspecified type ESR raised Elevated sedimentation rate CRP elevated Elevated C-reactive protein (CRP) Essential hypertension, benign Nonrheumatic aortic valve stenosis- Primary Aortic valve disorders [facility] Diagnosis Cellulitis of right hand- Primary Cellulitis and abscess of hand, except fingers and thumb Cellulitis of right hand Cellulitis and abscess of hand, except fingers and thumb Essential hypertension, benign Kidney congenitally absent, right Congenital renal agenesis and dysgenesis Right hand pain Pain in limb Localized swelling on right hand Leukocytosis, unspecified type ESR raised Elevated sedimentation rate CRP elevated Elevated C-reactive protein (CRP) Essential hypertension, benign Encounter for preprocedural cardiovascular examination Pre-operative cardiovascular examination [facility] Diagnosis Cellulitis of right hand- Primary Cellulitis and abscess of hand, except fingers and thumb Cellulitis of right hand Cellulitis and abscess of hand, except fingers and thumb Essential hypertension, benign Kidney congenitally absent, right Congenital renal agenesis and dysgenesis Right hand pain Pain in limb Localized swelling on right hand Leukocytosis, unspecified type ESR raised Elevated sedimentation rate CRP elevated Elevated C-reactive protein (CRP) Essential hypertension, benign 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 Stable angina Other and unspecified angina pectoris [facility] Diagnosis Cellulitis of right hand- Primary Cellulitis and abscess of hand, except fingers and thumb Cellulitis of right hand Cellulitis and abscess of hand, except fingers and thumb Essential hypertension, benign Kidney congenitally absent, right Congenital renal agenesis and dysgenesis Right hand pain Pain in limb Localized swelling on right hand Leukocytosis, unspecified type ESR raised Elevated sedimentation rate CRP elevated Elevated C-reactive protein (CRP) Essential hypertension, benign 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 Stable angina Other and unspecified angina pectoris [facility]* Diagnosis Cellulitis of right hand- Primary Cellulitis and abscess of hand, except fingers and thumb Cellulitis of right hand Cellulitis and abscess of hand, except fingers and thumb Essential hypertension, benign Kidney congenitally absent, right Congenital renal agenesis and dysgenesis Right hand pain Pain in limb Localized swelling on right hand Leukocytosis, unspecified type ESR raised Elevated sedimentation rate CRP elevated Elevated C-reactive protein (CRP) Essential hypertension, benign Abnormal CT of the abdomen- Primary Nonspecific (abnormal) findings on radiological and other examination of abdominal area, including retroperitoneum Prostate nodule Nodular prostate without urinary obstruction Stable angina Other and unspecified angina pectoris [facility]* Diagnosis Cellulitis of right hand- Primary Cellulitis and abscess of hand, except fingers and thumb Cellulitis of right hand Cellulitis and abscess of hand, except fingers and thumb Essential hypertension, benign Kidney congenitally absent, right Congenital renal agenesis and dysgenesis Right hand pain Pain in limb Localized swelling on right hand Leukocytosis, unspecified type ESR raised Elevated sedimentation rate CRP elevated Elevated C-reactive protein (CRP) Essential hypertension, benign BPH with obstruction/lower urinary tract symptoms- Primary Hypertrophy of prostate with urinary obstruction and other lower urinary tract symptoms (LUTS) Stable angina Other and unspecified angina pectoris [facility]* Diagnosis Cellulitis of right hand- Primary Cellulitis and abscess of hand, except fingers and thumb Cellulitis of right hand Cellulitis and abscess of hand, except fingers and thumb Essential hypertension, benign Kidney congenitally absent, right Congenital renal agenesis and dysgenesis Right hand pain Pain in limb Localized swelling on right hand Leukocytosis, unspecified type ESR raised Elevated sedimentation rate CRP elevated Elevated C-reactive protein (CRP) Essential hypertension, benign Prostate nodule- Primary Nodular prostate without urinary obstruction Abnormal CT of the abdomen Nonspecific (abnormal) findings on radiological and other examination of abdominal area, including retroperitoneum Screening for genitourinary condition Screening for other and unspecified genitourinary condition Benign prostatic hyperplasia with lower urinary tract symptoms, symptom details unspecified Stable angina Other and unspecified angina pectoris [facility] Diagnosis Cellulitis of right hand- Primary Cellulitis and abscess of hand, except fingers and thumb Cellulitis of right hand Cellulitis and abscess of hand, except fingers and thumb Essential hypertension, benign Kidney congenitally absent, right Congenital renal agenesis and dysgenesis Right hand pain Pain in limb Localized swelling on right hand Leukocytosis, unspecified type ESR raised Elevated sedimentation rate CRP elevated Elevated C-reactive protein (CRP) Essential hypertension, benign URI, acute- Primary Acute upper respiratory infections of unspecified site Rhinorrhea Other diseases of nasal cavity and sinuses Screening for depression Encounter for screening examination for other mental health and behavioral disorders Stable angina Other and unspecified angina pectoris [facility] Diagnosis Cellulitis of right hand- Primary Cellulitis and abscess of hand, except fingers and thumb Cellulitis of right hand Cellulitis and abscess of hand, except fingers and thumb Essential hypertension, benign Kidney congenitally absent, right Congenital renal agenesis and dysgenesis Right hand pain Pain in limb Localized swelling on right hand Leukocytosis, unspecified type ESR raised Elevated sedimentation rate CRP elevated Elevated C-reactive protein (CRP) Essential hypertension, benign S/P angioplasty with stent- Primary Other postprocedural status Hyperlipidemia, unspecified hyperlipidemia type Essential hypertension, benign Aortic valve stenosis, etiology of cardiac valve disease unspecified Prediabetes Other abnormal glucose SOB (shortness of breath) Shortness of breath Screening for colon cancer Special screening for malignant neoplasms, colon [facility] Diagnosis Cellulitis of right hand- Primary Cellulitis and abscess of hand, except fingers and thumb Cellulitis of right hand Cellulitis and abscess of hand, except fingers and thumb Essential hypertension, benign Kidney congenitally absent, right Congenital renal agenesis and dysgenesis Right hand pain Pain in limb Localized swelling on right hand Leukocytosis, unspecified type ESR raised Elevated sedimentation rate CRP elevated Elevated C-reactive protein (CRP) Essential hypertension, benign SOB (shortness of breath) [facility]ness of [facility] Diagnosis Cellulitis of right hand- Primary Cellulitis and abscess of hand, except fingers and thumb Cellulitis of right hand Cellulitis and abscess of hand, except fingers and thumb Essential hypertension, benign Kidney congenitally absent, right Congenital renal agenesis and dysgenesis Right hand pain Pain in limb Localized swelling on right hand Leukocytosis, unspecified type ESR raised Elevated sedimentation rate CRP elevated Elevated C-reactive protein (CRP) Essential hypertension, benign SOB (shortness of breath) Shortness of breath [facility]* Diagnosis Cellulitis of right hand- Primary Cellulitis and abscess of hand, except fingers and thumb Cellulitis of right hand Cellulitis and abscess of hand, except fingers and thumb Essential hypertension, benign Kidney congenitally absent, right Congenital renal agenesis and dysgenesis Right hand pain Pain in limb Localized swelling on right hand Leukocytosis, unspecified type ESR raised Elevated sedimentation rate CRP elevated Elevated C-reactive protein (CRP) Essential hypertension, benign SOB (shortness of breath)- Primary Shortness of breath [facility]* Diagnosis Cellulitis of right hand- Primary Cellulitis and abscess of hand, except fingers and thumb Cellulitis of right hand Cellulitis and abscess of hand, except fingers and thumb Essential hypertension, benign Kidney congenitally absent, right Congenital renal agenesis and dysgenesis Right hand pain Pain in limb Localized swelling on right hand Leukocytosis, unspecified type ESR raised Elevated sedimentation rate CRP elevated Elevated C-reactive protein (CRP) Essential hypertension, benign Postsurgical percutaneous transluminal coronary angioplasty (PTCA) status- Primary Postsurgical percutaneous transluminal coronary angioplasty status Essential hypertension Unspecified essential hypertension Mixed hyperlipidemia Dizziness and giddiness documented [facility]* Diagnosis Cellulitis of right hand- Primary Cellulitis and abscess of hand, except fingers and thumb Cellulitis of right hand Cellulitis and abscess of hand, except fingers and thumb Essential hypertension, benign Kidney congenitally absent, right Congenital renal agenesis and dysgenesis Right hand pain Pain in limb Localized swelling on right hand Leukocytosis, unspecified type ESR raised Elevated sedimentation rate CRP elevated Elevated C-reactive protein (CRP) Essential hypertension, benign Essential (primary) hypertension Unspecified essential hypertension [facility]* Diagnosis Cellulitis of right hand- Primary Cellulitis and abscess of hand, except fingers and thumb Cellulitis of right hand Cellulitis and abscess of hand, except fingers and thumb Essential hypertension, benign Kidney congenitally absent, right Congenital renal agenesis and dysgenesis Right hand pain Pain in limb Localized swelling on right hand Leukocytosis, unspecified type ESR raised Elevated sedimentation rate CRP elevated Elevated C-reactive protein (CRP) Essential hypertension, benign Essential (primary) hypertension Unspecified essential hypertension [facility]* Diagnosis Cellulitis of right hand- Primary Cellulitis and abscess of hand, except fingers and thumb Cellulitis of right hand Cellulitis and abscess of hand, except fingers and thumb Essential hypertension, benign Kidney congenitally absent, right Congenital renal agenesis and dysgenesis Right hand pain Pain in limb Localized swelling on right hand Leukocytosis, unspecified type ESR raised Elevated sedimentation rate CRP elevated Elevated C-reactive protein (CRP) Essential hypertension, benign Elevated diaphragm Disorders of diaphragm [facility]* Diagnosis Cellulitis of right hand- Primary Cellulitis and abscess of hand, except fingers and thumb Cellulitis of right hand Cellulitis and abscess of hand, except fingers and thumb Essential hypertension, benign Kidney congenitally absent, right Congenital renal agenesis and dysgenesis Right hand pain Pain in limb Localized swelling on right hand Leukocytosis, unspecified type ESR raised Elevated sedimentation rate CRP elevated Elevated C-reactive protein (CRP) Essential hypertension, benign Nocturnal hypoxemia- Primary Hypoxemia [facility] Diagnosis Cellulitis of right hand- Primary Cellulitis and abscess of hand, except fingers and thumb Cellulitis of right hand Cellulitis and abscess of hand, except fingers and thumb Essential hypertension, benign Kidney congenitally absent, right Congenital renal agenesis and dysgenesis Right hand pain Pain in limb Localized swelling on right hand Leukocytosis, unspecified type ESR raised Elevated sedimentation rate CRP elevated Elevated C-reactive protein (CRP) Essential hypertension, benign Screen for colon cancer- Primary Special screening for malignant neoplasms, colon documented in this encounter [facility] for referral (narrative)* Outpatient Procedure (Routine) - Closed Specialty Diagnoses / Procedures Referred By Lita t Referred To [facility] Diagnoses Aortic valve stenosis, etiology of cardiac valve disease unspecified Essential hypertension, benign Procedures ECG COMPLETE ECG ROUTINE ECG W/LEAST 12 LDS W/I&R Chema Oreilly MD [address] [place] [address] [facility] [address] [place] [address] Referral ID Status Reason Start Date Expiration Date V isits Requested Visits Authorized [id number] Closed Auto-Generate d Referral 09/23/2022 09/23/2023 1 1 [facility] for referral (narrative)* Outpatient Procedure (Routine) - Authorized Specialty Diagnoses / Procedures Referred By Contac t Referred To Contact [facility] Diagnoses Nonrheumatic aortic valve stenosis Procedures ECHO ECHO TTHRC R-T 2D W/WOM-MODE COMPL SPEC&COLR D Chema Oreilly MD [address] [place] [address] [facility] [address] [place] [id number] Referral ID Status Reason Start Date Expiration Date Visits Requested Visits Authorized [id number] Authorized Auto-Generat ed Referral 10/26/2023 10/29/2023 1 1 * Outpatient Procedure (Routine) - Pending Review Specialty Diagnoses / Procedures Referred By Lita t Referred To Contact [facility] Diagnoses Essential hypertension, benign Aortic valve stenosis, etiology of cardiac valve disease unspecified Procedures ECG COMPLETE ECG ROUTINE ECG W/LEAST 12 LDS W/I&R Chema Oreilly MD [address], [address] [place] [address] [facility] [address] [place] [id number] Referral ID Status Reason Start Date Expiration Date Visits Requested Visits Authorized [id number] Pending Review Auto-Generat ed Referral 10/11/2023 10/10/2024 1 1 [facility] for referral (narrative)No reason for referral information [facility] Work Phone: Reason for visit Narrative* Auth/Cert (Routine) Specialty Diagnoses / Procedures Referred By Contmell t Referred To Contact Diagnoses Valvular heart disease Valvular heart disease [I38] Procedures L HRT CATH W/NJX L VENTRICULOGRAPHY IMG S&I LEFT HEART CATH INTRAPROCEDURAL INJECT W/ LEFT VENTRICULOGRAPHY 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 [address] [place] [address] Referral ID Status Reason Start Date Expiration Date Visits Re quested Visits Authorized [id number] 1 1 [facility] Diagnostic Procedure Only (Routine) - Closed Specialty Diagnoses / Procedures Referred By Contmell t Referred To Contact [facility] Diagnoses Elevated diaphragm Procedures XR CHEST FLUORO SNIFF TEST FLUOROSCOPY UP TO 1 HOUR PHYSICIAN/QHP TIME Deidre Soto MD [address] [place] [address] Phone: tel: fax: [place] [id number] Referral ID Status Reason Start Date Expiration Date V isits Requested Visits Authorized [id number] Closed Auto-Generate d Referral 02/15/2025 03/17/2026 1 1 [facility] Summary Purpose Family History No Family History Records Found Relationship Condition Age at Onset Recorded Date/T vikki Unknown Family History?Heart Disease Unknown November 24, 2018 4:23pm Family History?Heart Disease Unknown December 06, 2018 3:33pm Family History?High Cholesterol Unknown December 06, 2018 3:33pm Relationship Condition Age at Onset Recorded Date/T vikki Unknown Family History?Heart Disease Unknown November 24, 2018 3:23pm Family History?Heart Disease Unknown December 06, 2018 2:33pm Family History?High Cholesterol Unknown December 06, 2018 2:33pm Advance Directives No Advanced Directives Records FoundDocuments on File Type Date Recorded 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 Advance Directive(s) 11/28/2018 2:36 PM Advance Directive(s) 10/05/2018 6:36 AM Advance Directive(s) 09/09/2018 11:41 AM Advance Directive Response Recorded Date/ Time Living Will No December 06, 2018 2 :12am Power of Silverlight Developer No December 06, 2018 2:12am Advance Directive Response Recorded Date/ Time Living Will No December 06, 2018 1 :12am Power of Silverlight Developer No December 06, 2018 1:12am Date Activated Date Inactivated Comments 12/25/2024 10:56 AM 12/26/2024 1:14 PM Question Answer Comments Full Code Order Discussed With: Patient Date Activated Date Inactivated Comments 12/25/2024 10:56 AM 12/26/2024 1:14 PM Question Answer Comments Full Code Order Discussed With: Patient Chief Complaint and Reason for Visit Chief Complaint 2 DRS/ 2 ORDERS Chief Complaint PAIN- COPY PCP Chief Complaint flank pain, groin pa in, abd pain Chief Complaint Admit Date PAIN- COPY PCP October 23, 2024 9:2 1am Chief Complaint Admit Date PAIN- COPY PCP October 23, 2024 9:2 1am LABS February 07, 2025 8:40 am Additional Source Comments (unrecognized sect ion and content) No Status Records FoundNo Status Records FoundNo Status Records FoundNo Status Records FoundNo Status Records FoundNo Status Records FoundNo Status Records Found INFORMATION SOURCE (unrecogn ized section and content) DATE CREATED AUTHOR 01/04/2018 [facility] DATE CREATED AUTHOR AUTHOR'S ORGANIZ ATION 01/14/2025 [facility] DATE CREATED AUTHOR AUTHOR'S ORGANIZ ATION 01/22/2025 [facility] DATE CREATED AUTHOR AUTHOR'S ORGANIZ ATION 03/16/2025 [facility] DATE CREATED AUTHOR AUTHOR'S ORGANIZ ATION 04/28/2025 [facility] DATE CREATED AUTHOR AUTHOR'S ORGANIZ ATION 05/06/2025 [facility] DATE CREATED AUTHOR AUTHOR'S ORGANIZ ATION 05/13/2025 [facility] nter Source Comments (unrecognize d section and content) In the event this informatio n is protected by the Federal Confidentiality of Alcohol and Drug Abuse Patient Records regulations: The Federal rules restrict any use of the information to criminally investigate or prosecute any alcohol or drug abuse patient.[facility] the event this information is protected by the Federal Confidentiality of Alcohol and Drug Abuse Patient Records regulations: The Federal rules restrict any use of the information to criminally investigate or prosecute any alcohol or drug abuse patient.[facility]In the event this information is protected by the Federal Confidentiality of Alcohol and Drug Abuse Patient Records regulations: The Federal rules restrict any use of the information to criminally investigate or prosecute any alcohol or drug abuse patient.[facility]In the event this information is protected by the Federal Confidentiality of Alcohol and Drug Abuse Patient Records regulations: The Federal rules restrict any use of the information to criminally investigate or prosecute any alcohol or drug abuse patient.[facility] HospitalIn the event this information is protected by the Federal Confidentiality of Alcohol and Drug Abuse Patient Records regulations: The Federal rules restrict any use of the information to criminally investigate or prosecute any alcohol or drug abuse patient.[facility]In the event this information is protected by the Federal Confidentiality of Alcohol and Drug Abuse Patient Records regulations: The Federal rules restrict any use of the information to criminally investigate or prosecute any alcohol or drug abuse patient.[facility] HospitalIn the event this information is protected by the Federal Confidentiality of Alcohol and Drug Abuse Patient Records regulations: The Federal rules restrict any use of the information to criminally investigate or prosecute any alcohol or drug abuse patient.[facility]In the event this information is protected by the Federal Confidentiality of Alcohol and Drug Abuse Patient Records regulations: The Federal rules restrict any use of the information to criminally investigate or prosecute any alcohol or drug abuse patient.[facility]In the event this information is protected by the Federal Confidentiality of Alcohol and Drug Abuse Patient Records regulations: The Federal rules restrict any use of the information to criminally investigate or prosecute any alcohol or drug abuse patient.[facility]In the event this information is protected by the Federal Confidentiality of Alcohol and Drug Abuse Patient Records regulations: The Federal rules restrict any use of the information to criminally investigate or prosecute any alcohol or drug abuse patient.[facility]In the event this information is protected by the Federal Confidentiality of Alcohol and Drug Abuse Patient Records regulations: The Federal rules restrict any use of the information to criminally investigate or prosecute any alcohol or drug abuse patient.[facility] HospitalIn the event this information is protected by the Federal Confidentiality of Alcohol and Drug Abuse Patient Records regulations: The Federal rules restrict any use of the information to criminally investigate or prosecute any alcohol or drug abuse patient.[facility]In the event this information is protected by the Federal Confidentiality of Alcohol and Drug Abuse Patient Records regulations: The Federal rules restrict any use of the information to criminally investigate or prosecute any alcohol or drug abuse patient.[facility] HospitalIn the event this information is protected by the Federal Confidentiality of Alcohol and Drug Abuse Patient Records regulations: The Federal rules restrict any use of the information to criminally investigate or prosecute any alcohol or drug abuse patient.[facility] HospitalIn the event this information is protected by the Federal Confidentiality of Alcohol and Drug Abuse Patient Records regulations: The Federal rules restrict any use of the information to criminally investigate or prosecute any alcohol or drug abuse patient.[facility] HospitalIn the event this information is protected by the Federal Confidentiality of Alcohol and Drug Abuse Patient Records regulations: The Federal rules restrict any use of the information to criminally investigate or prosecute any alcohol or drug abuse patient.[facility] HospitalIn the event this information is protected by the Federal Confidentiality of Alcohol and Drug Abuse Patient Records regulations: The Federal rules restrict any use of the information to criminally investigate or prosecute any alcohol or drug abuse patient.[facility] HospitalIn the event this information is protected by the Federal Confidentiality of Alcohol and Drug Abuse Patient Records regulations: The Federal rules restrict any use of the information to criminally investigate or prosecute any alcohol or drug abuse patient.[facility] HospitalIn the event this information is protected by the Federal Confidentiality of Alcohol and Drug Abuse Patient Records regulations: The Federal rules restrict any use of the information to criminally investigate or prosecute any alcohol or drug abuse patient.[facility] HospitalIn the event this information is protected by the Federal Confidentiality of Alcohol and Drug Abuse Patient Records regulations: The Federal rules restrict any use of the information to criminally investigate or prosecute any alcohol or drug abuse patient.[facility] HospitalIn the event this information is protected by the Federal Confidentiality of Alcohol and Drug Abuse Patient Records regulations: The Federal rules restrict any use of the information to criminally investigate or prosecute any alcohol or drug abuse patient.[facility] HospitalIn the event this information is protected by the Federal Confidentiality of Alcohol and Drug Abuse Patient Records regulations: The Federal rules restrict any use of the information to criminally investigate or prosecute any alcohol or drug abuse patient.[facility] HospitalIn the event this information is protected by the Federal Confidentiality of Alcohol and Drug Abuse Patient Records regulations: The Federal rules restrict any use of the information to criminally investigate or prosecute any alcohol or drug abuse patient.[facility] HospitalIn the event this information is protected by the Federal Confidentiality of Alcohol and Drug Abuse Patient Records regulations: The Federal rules restrict any use of the information to criminally investigate or prosecute any alcohol or drug abuse patient.[facility] HospitalIn the event this information is protected by the Federal Confidentiality of Alcohol and Drug Abuse Patient Records regulations: The Federal rules restrict any use of the information to criminally investigate or prosecute any alcohol or drug abuse patient.[facility] HospitalIn the event this information is protected by the Federal Confidentiality of Alcohol and Drug Abuse Patient Records regulations: The Federal rules restrict any use of the information to criminally investigate or prosecute any alcohol or drug abuse patient.[facility] HospitalIn the event this information is protected by the Federal Confidentiality of Alcohol and Drug Abuse Patient Records regulations: The Federal rules restrict any use of the information to criminally investigate or prosecute any alcohol or drug abuse patient.[facility] HospitalIn the event this information is protected by the Federal Confidentiality of Alcohol and Drug Abuse Patient Records regulations: The Federal rules restrict any use of the information to criminally investigate or prosecute any alcohol or drug abuse patient.[facility] HospitalIn the event this information is protected by the Federal Confidentiality of Alcohol and Drug Abuse Patient Records regulations: The Federal rules restrict any use of the information to criminally investigate or prosecute any alcohol or drug abuse patient.[facility] HospitalIn the event this information is protected by the Federal Confidentiality of Alcohol and Drug Abuse Patient Records regulations: The Federal rules restrict any use of the information to criminally investigate or prosecute any alcohol or drug abuse patient.[facility] HospitalIn the event this information is protected by the Federal Confidentiality of Alcohol and Drug Abuse Patient Records regulations: The Federal rules restrict any use of the information to criminally investigate or prosecute any alcohol or drug abuse patient.[facility] HospitalIn the event this information is protected by the Federal Confidentiality of Alcohol and Drug Abuse Patient Records regulations: The Federal rules restrict any use of the information to criminally investigate or prosecute any alcohol or drug abuse patient.[facility] HospitalIn the event this information is protected by the Federal Confidentiality of Alcohol and Drug Abuse Patient Records regulations: The Federal rules restrict any use of the information to criminally investigate or prosecute any alcohol or drug abuse patient.[facility] HospitalIn the event this information is protected by the Federal Confidentiality of Alcohol and Drug Abuse Patient Records regulations: The Federal rules restrict any use of the information to criminally investigate or prosecute any alcohol or drug abuse patient.[facility] HospitalIn the event this information is protected by the Federal Confidentiality of Alcohol and Drug Abuse Patient Records regulations: The Federal rules restrict any use of the information to criminally investigate or prosecute any alcohol or drug abuse patient.[facility] HospitalIn the event this information is protected by the Federal Confidentiality of Alcohol and Drug Abuse Patient Records regulations: The Federal rules restrict any use of the information to criminally investigate or prosecute any alcohol or drug abuse patient.[facility] HospitalIn the event this information is protected by the Federal Confidentiality of Alcohol and Drug Abuse Patient Records regulations: The Federal rules restrict any use of the information to criminally investigate or prosecute any alcohol or drug abuse patient.[facility] HospitalIn the event this information is protected by the Federal Confidentiality of Alcohol and Drug Abuse Patient Records regulations: The Federal rules restrict any use of the information to criminally investigate or prosecute any alcohol or drug abuse patient.[facility] HospitalIn the event this information is protected by the Federal Confidentiality of Alcohol and Drug Abuse Patient Records regulations: The Federal rules restrict any use of the information to criminally investigate or prosecute any alcohol or drug abuse patient.[facility] HospitalIn the event this information is protected by the Federal Confidentiality of Alcohol and Drug Abuse Patient Records regulations: The Federal rules restrict any use of the information to criminally investigate or prosecute any alcohol or drug abuse patient.[facility] HospitalIn the event this information is protected by the Federal Confidentiality of Alcohol and Drug Abuse Patient Records regulations: The Federal rules restrict any use of the information to criminally investigate or prosecute any alcohol or drug abuse patient.[facility] HospitalIn the event this information is protected by the Federal Confidentiality of Alcohol and Drug Abuse Patient Records regulations: The Federal rules restrict any use of the information to criminally investigate or prosecute any alcohol or drug abuse patient.[facility] HospitalIn the event this information is protected by the Federal Confidentiality of Alcohol and Drug Abuse Patient Records regulations: The Federal rules restrict any use of the information to criminally investigate or prosecute any alcohol or drug abuse patient.[facility] HospitalIn the event this information is protected by the Federal Confidentiality of Alcohol and Drug Abuse Patient Records regulations: The Federal rules restrict any use of the information to criminally investigate or prosecute any alcohol or drug abuse patient.[facility] HospitalIn the event this information is protected by the Federal Confidentiality of Alcohol and Drug Abuse Patient Records regulations: The Federal rules restrict any use of the information to criminally investigate or prosecute any alcohol or drug abuse patient.[facility] HospitalIn the event this information is protected by the Federal Confidentiality of Alcohol and Drug Abuse Patient Records regulations: The Federal rules restrict any use of the information to criminally investigate or prosecute any alcohol or drug abuse patient.[facility] HospitalIn the event this information is protected by the Federal Confidentiality of Alcohol and Drug Abuse Patient Records regulations: The Federal rules restrict any use of the information to criminally investigate or prosecute any alcohol or drug abuse patient.[facility] HospitalIn the event this information is protected by the Federal Confidentiality of Alcohol and Drug Abuse Patient Records regulations: The Federal rules restrict any use of the information to criminally investigate or prosecute any alcohol or drug abuse patient.[facility] HospitalIn the event this information is protected by the Federal Confidentiality of Alcohol and Drug Abuse Patient Records regulations: The Federal rules restrict any use of the information to criminally investigate or prosecute any alcohol or drug abuse patient.[facility] HospitalIn the event this information is protected by the Federal Confidentiality of Alcohol and Drug Abuse Patient Records regulations: The Federal rules restrict any use of the information to criminally investigate or prosecute any alcohol or drug abuse patient.[facility] HospitalIn the event this information is protected by the Federal Confidentiality of Alcohol and Drug Abuse Patient Records regulations: The Federal rules restrict any use of the information to criminally investigate or prosecute any alcohol or drug abuse patient.[facility] HospitalIn the event this information is protected by the Federal Confidentiality of Alcohol and Drug Abuse Patient Records regulations: The Federal rules restrict any use of the information to criminally investigate or prosecute any alcohol or drug abuse patient.[facility] HospitalIn the event this information is protected by the Federal Confidentiality of Alcohol and Drug Abuse Patient Records regulations: The Federal rules restrict any use of the information to criminally investigate or prosecute any alcohol or drug abuse patient.[facility] HospitalIn the event this information is protected by the Federal Confidentiality of Alcohol and Drug Abuse Patient Records regulations: The Federal rules restrict any use of the information to criminally investigate or prosecute any alcohol or drug abuse patient.[facility] HospitalIn the event this information is protected by the Federal Confidentiality of Alcohol and Drug Abuse Patient Records regulations: The Federal rules restrict any use of the information to criminally investigate or prosecute any alcohol or drug abuse patient.[facility] HospitalIn the event this information is protected by the Federal Confidentiality of Alcohol and Drug Abuse Patient Records regulations: The Federal rules restrict any use of the information to criminally investigate or prosecute any alcohol or drug abuse patient.[facility] HospitalIn the event this information is protected by the Federal Confidentiality of Alcohol and Drug Abuse Patient Records regulations: The Federal rules restrict any use of the information to criminally investigate or prosecute any alcohol or drug abuse patient.[facility] HospitalIn the event this information is protected by the Federal Confidentiality of Alcohol and Drug Abuse Patient Records regulations: The Federal rules restrict any use of the information to criminally investigate or prosecute any alcohol or drug abuse patient.[facility] HospitalIn the event this information is protected by the Federal Confidentiality of Alcohol and Drug Abuse Patient Records regulations: The Federal rules restrict any use of the information to criminally investigate or prosecute any alcohol or drug abuse patient.[facility] HospitalIn the event this information is protected by the Federal Confidentiality of Alcohol and Drug Abuse Patient Records regulations: The Federal rules restrict any use of the information to criminally investigate or prosecute any alcohol or drug abuse patient.[facility] HospitalIn the event this information is protected by the Federal Confidentiality of Alcohol and Drug Abuse Patient Records regulations: The Federal rules restrict any use of the information to criminally investigate or prosecute any alcohol or drug abuse patient.[facility] HospitalIn the event this information is protected by the Federal Confidentiality of Alcohol and Drug Abuse Patient Records regulations: The Federal rules restrict any use of the information to criminally investigate or prosecute any alcohol or drug abuse patient.[facility] HospitalIn the event this information is protected by the Federal Confidentiality of Alcohol and Drug Abuse Patient Records regulations: The Federal rules restrict any use of the information to criminally investigate or prosecute any alcohol or drug abuse patient.[facility] HospitalIn the event this information is protected by the Federal Confidentiality of Alcohol and Drug Abuse Patient Records regulations: The Federal rules restrict any use of the information to criminally investigate or prosecute any alcohol or drug abuse patient.[facility] HospitalIn the event this information is protected by the Federal Confidentiality of Alcohol and Drug Abuse Patient Records regulations: The Federal rules restrict any use of the information to criminally investigate or prosecute any alcohol or drug abuse patient.[facility] Reason for Visit (unrecogniz ed section and content) Reason Comments Follow Up Specialty Diagnoses / Procedures Referred By Lita moctezuma Referred To Contact Urology Diagnoses Abnormal CT of the abdomen Prostate nodule Procedures CONSULT TO UROLOGY OFFICE/OUTPATIENT [facility] 60 MINUTES Miguelangel Courtney MD [address] [place] [address] Phone: tel: fax: Referral ID Status Reason Start Date Expiration Date V isits Requested Visits Authorized [id number] Closed PCP Requested Referral 11/23/2024 11/23/2025 1 1 Reason Comments 6 Month Exam Reason Comments Refill Request Reason Comments Orders Reason Onset Date Comments 6 Month Exam Immunizations 05/14/2022 Flu vaccination Allergies Bad this fall Low Back Pain Reason Onset Date Comments Refill Request 07/22/2022 Reason Comments Follow Up Reason Onset Date Comments Refill Request 10/19/2022 Reason Comments Lab Orders Reason Comments Follow Up Benign Prostatic Hypertrophy Specialty Diagnoses / Procedures Referred By Contac t Referred To Contact UROLOGY Diagnoses 1 year Procedures 1 year Stephon Negron PA-C [address] [place] [address] [facility] [address] [place] [address] Referral ID Status Reason Start Date Expiration Date Visits Requested Visits Authorized [id number] Pending Review OON/Self Pay Override 04/09/2023 10/06/2023 1 1 Reason Onset Date Comments Refill Request 08/25/2023 Reason Comments Follow Up Reason Onset Date Comments Refill Request 10/13/2023 Reason Onset Date Comments Refill Request 10/26/2023 Reason Onset Date Comments Refill Request 03/23/2024 Reason Comments Follow Up BPH Reason Onset Date Comments Refill Request 08/07/2024 Reason Onset Date Comments Refill Request 09/04/2024 Reason Onset Date Comments Population Health Navigation Outreach 09/12/2024 [employer] high risk attempt # 1 Reason Comments 6 Month Exam Reason Comments Consult Specialty Diagnoses / Procedures Referred By Contac t Referred To Contact General Surgery Diagnoses Family history of colon cancer Anemia, unspecified type Procedures CONSULT TO GENERAL SURGERY OFFICE/OUTPATIENT [facility] 60 MINUTES Miguelangel Courtney MD [address] [place] [address] Phone: tel: fax: Referral ID Status Reason Start Date Expiration Date V isits Requested Visits Authorized [id number] Closed PCP Requested Referral 09/25/2024 09/25/2025 1 1 Reason Comments Follow Up 1 year follow up Reason Onset Date Comments Results 10/25/2024 Reason Comments Charge Histotechnologist - Other Reason Comments Cardiac Clearance Reason Comments Patient Update Reason Comments Preparations For Procedures Direct PCI Reason Onset Date Comments Care Coordination 11/22/2024 Reason Onset Date Comments Results 11/23/2024 Reason Comments Results Reason Comments Patient Question Reason Comments URI Cough and sinus irasema estion for 2 weeks Reason Onset Date Comments Results 12/21/2024 Reason Comments Appointment Cardiac Rehab Eval Reason Comments Elevated BP Reason Comments Blood Pressure Feels like BP may be a little elevated. Taking BP at home. Thinks SBP was high does not have reading with him. bowel changes Some bowel movements are diarrhea some not. Reason Comments Spirometry Specialty Diagnoses / Procedures Referred By Contac t Referred To Contact [facility] Diagnoses SOB (shortness of breath) Procedures SPIROMETRY WITH DILATOR IF OBSTRUCTED BRNCDILAT RSPSE SPMTRY PRE&POST-BRNCDILAT ADMN Miguelangel Courtney MD [address] [place] [address] Phone: tel: fax: [facility] [address] [place] [phone] Referral ID Status Reason Start Date Expiration Date V isits Requested Visits Authorized [id number] Closed Auto-Generate d Referral 01/10/2025 02/09/2026 1 1 Specialty Diagnoses / Procedures Referred By Contac t Referred To Contact [facility] Diagnoses SOB (shortness of breath) Procedures LUNG VOLUMES Miguelangel Courtney MD [address] [place] [address] Phone: tel: fax: [facility] [address] [place] [phone] Referral ID Status Reason Start Date Expiration Date V isits Requested Visits Authorized [id number] Closed Auto-Generate d Referral 07/12/2024 07/11/2025 1 1 Reason Comments Follow Up 3 month follow up- h eart cath at [facility], c/o dizziness in the mornings Reason Comments Follow Up 4 week follow up- bl ood pressure Reason Comments Blood Pressure Follow up. Denies an y dizziness. Reason Comments Results Sniff test and oxime try Care Teams (unrecognized sec tion and content) Neck Cutter Relationship Specialty Start Date End Date Miguelangel Courtney MD [address] [place], [place] [id number] PCP - General Family Practice 10/16/15 Neck Cutter Relationship Specialty Start Date End Date Miguelangel Courtney MD [address] [place], [place] [id number] PCP - General Family Practice 10/16/15 Neck Cutter Relationship Specialty Start Date End Date Miguelangel Courtney MD [address] [place] [address] PCP - General Family Medicine 10/16/15 Neck Cutter Relationship Specialty Start Date End Date Miguelangel Courtney MD [address] [facility] [place] [address] PCP - General Family Medicine 10/16/15 Neck Cutter Relationship Specialty Start Date End Date Miguelangel Courtney MD [address] [facility] [place] [address] PCP - General Family Medicine 10/16/15 Neck Cutter Relationship Specialty Start Date End Date Miguelangel Courtney MD [address] [facility] [place] [place] [address] PCP - General Family Medicine 10/16/15 Neck Cutter Relationship Specialty Start Date End Date Miguelangel Courtney MD [address] [facility] [place] [place] [address] PCP - General Family Medicine 10/16/15 Neck Cutter Relationship Specialty Start Date End Date Miguelangel Courtney MD [address] [facility] [place] [address] PCP - General Family Medicine 10/16/15 Neck Cutter Relationship Specialty Start Date End Date Miguelangel Courtney MD [address] [place] [address] PCP - General Family Medicine 10/16/15 Neck Cutter Relationship Specialty Start Date End Date Miguelangel Courtney MD [address] [facility] [place] [address] PCP - General Family Medicine 10/16/15 Team Status: Active Member Role Status Dates Dr. Miguelangel Courtney MD Family Provider Active Dr. Miguelangel Courtney MD Primary Care Provider Active Team Status: Inactive Member Role Status Dates Dr. Miguelangel Courtney MD Primary Care Provider Active Dr. Beulah Pittman MD Attending Provider, Referring Provider Active Team Status: Inactive Member Role Status Dates Dr. Miguelangel Courtney MD Primary Care Provider Active Dr. Edwardo Veliz MD Attending Provider, Referr ing Provider Active Team Status: Inactive Member Role Status Dates Dr. Miguelangel Courtney MD Primary Care Provider Active Dr. Raissa Cerrato DO Attending Provider, Referring P rovider Active Team Status: Inactive Member Role Status Dates Dr. Miguelangel Courtney MD Primary Care Provider Active Dr. Jann Ramirez , Emergency Provider Active Team Status: Inactive Member Role Status Dates Dr. Miguelangel Courtney MD Primary Care Provider Active Dr. Jann Ramirez DO Attending Provider, Emergency P rovider Active Neck Cutter Relationship Specialty Start Date End Date Miguelangel Courtney MD [address] [place], [place] [address] PCP - General Family Medicine 10/16/15 Neck Cutter Relationship Specialty Start Date End Date Miguelangel Courtney MD [address] [place] [address] PCP - General Family Medicine 10/16/15 Neck Cutter Relationship Specialty Start Date End Date Miguelangel Courtney MD [address] [place], [place] [address] PCP - General Family Medicine 10/16/15 Neck Cutter Relationship Specialty Start Date End Date Miguelangel Courtney MD [address] [place] [address] PCP - General Family Medicine 10/16/15 Neck Cutter Relationship Specialty Start Date End Date Miguelangel Courtney MD [address] [place], [place] [address] PCP - General Family Medicine 10/16/15 Neck Cutter Relationship Specialty Start Date End Date Miguelangel Courtney MD [address] [place], [place] [address] PCP - General Family Medicine 10/16/15 Neck Cutter Relationship Specialty Start Date End Date Miguelangel Courtney MD [address] [place], [place] [address] PCP - General Family Medicine 10/16/15 Neck Cutter Relationship Specialty Start Date End Date Miguelangel Courtney MD [address] [place], [place] [address] PCP - General Family Medicine 10/16/15 Neck Cutter Relationship Specialty Start Date End Date Miguelangel Courtney MD [address] [place] [address] PCP - General Family Medicine 10/16/15 Neck Cutter Relationship Specialty Start Date End Date Miguelangel Courtney MD [address] [place] [address] PCP - General Family Medicine 10/16/15 Neck Cutter Relationship Specialty Start Date End Date Miguelangel Courtney MD [address] [place] [address] PCP - General Family Medicine 10/16/15 Neck Cutter Relationship Specialty Start Date End Date Miguelangel Courtney MD [address] [place] [address] PCP - General Family Medicine 10/16/15 Uzma Hanley APRN.TRAIN ANNOUNCER [address] [place] [address] Director Video Family Medicine 06/19/24 Willow Marcelo APRN.TRAIN ANNOUNCER [address] [place] [address] [facility] 06/19/24 Neck Cutter Relationship Specialty Start Date End Date Miguelangel Courtney MD [address] [facility] [place] [address] PCP - General Family Medicine 10/16/15 Uzma Hanley, ON AIR PERSONALITY.TRAIN ANNOUNCER [address] [facility] [place] [address] [facility] 06/[facility]/24 Willow Marcelo ON AIR PERSONALITY.TRAIN ANNOUNCER [address] [facility] [place] [address] [facility] 06/19/24 Neck Cutter Relationship Specialty Start Date End Date Miguelangel Courtney MD [address] [place] [address] PCP - General Family Medicine 10/16/15 Uzma Hanley, ON AIR PERSONALITY.TRAIN ANNOUNCER [address] [place] [address] [facility] Medicine 06/19/24 Willow Marcelo ON AIR PERSONALITY.TRAIN ANNOUNCER [address] [facility] [place] [address] [facility] Medicine 06/19/24 Neck Cutter Relationship Specialty Start Date End Date Miguelangel Courtney MD [address] [facility] [place] [address] PCP - General Family Medicine 10/16/15 Uzma Hanley, ON AIR PERSONALITY.TRAIN ANNOUNCER [address] [facility] [address] [facility] Family Medicine 06/19/24 Willow Marcelo ON AIR PERSONALITY.TRAIN ANNOUNCER [address] [facility], [place] [address] [phone] Director Video Family [facility] 06/19/24 Neck Cutter Relationship Specialty Start Date End Date Miguelangel Courtney MD [address] [facility], [place] [address] PCP - General Family Medicine 10/16/15 Uzma Hanley, ON AIR PERSONALITY.TRAIN ANNOUNCER [address] [place] [address] Director Video Family Medicine 06/19/24 Willow Marcelo, ON AIR PERSONALITY.TRAIN ANNOUNCER [address] [facility] [place] [place] [address] [facility] 06/19/24 Neck Cutter Relationship Specialty Start Date End Date Miguelangel Courtney MD [address] [place], [place] [address] PCP - General Family Medicine 10/16/15 Uzma Hanley, ON AIR PERSONALITY.TRAIN ANNOUNCER [address] [facility] [address] [facility] 06/19/24 Willow Marcelo, ON AIR PERSONALITY.TRAIN ANNOUNCER [address] [facility] [place] [place] [address] Director Video Family Medicine 06/19/24 Kirsten Etienne, sanitation officerConsultant [employer]. Vice President [employer] ) 09/15/24 Neck Cutter Relationship Specialty Start Date End Date Miguelangel Courtney MD [address] [facility], [place] [address] [phone] PCP - General Family Medicine 10/16/15 Uzam Hanley, ON AIR PERSONALITY.TRAIN ANNOUNCER [address] [place] [address] [facility] 06/19/24 Willow Marcelo ON AIR PERSONALITY.TRAIN ANNOUNCER [address] [facility] [address] [facility] 06/19/24 Kirsten Etienne, sanitation officerConsultant [employer]. Vice President [employer] ) 09/15/24 Neck Cutter Relationship Specialty Start Date End Date Miguelangel Courtney MD [address] [facility] [address] PCP - General Family Medicine 10/16/15 Uzma Hanley, ON AIR PERSONALITY.TRAIN ANNOUNCER [address] [facility] [place] [address] [facility] 06/19/24 Willow Marcelo, ON AIR PERSONALITY.TRAIN ANNOUNCER [address] [facility] [place] [address] [facility] 06/19/24 Kirsten Etienne, sanitation officerConsultant [employer]. Vice President [employer] ) 09/15/24 Neck Cutter Relationship Specialty Start Date End Date Miguelangel Courtney MD [address] [facility] [address] PCP - General Family Medicine 10/16/15 Uzma Hanley ON AIR PERSONALITY.TRAIN ANNOUNCER [address] [place] [address] [facility] 06/19/24 Willow Marcelo ON AIR PERSONALITY.TRAIN ANNOUNCER [address] [facility] [address] Director Video Family Medicine 06/19/24 Kirsten Etienne, sanitation officerConsultant [employer]. Vice President [employer] ) 09/15/24 Team Status: Inactive Member Role Status Dates Dr. Miguelangel Courtney MD Primary Care Provider Active Start: October 23, 2024 End: October 23, 2024 Dr. Beulah Pittman MD Attending Provider Active Start: October 23, 2024 End: October 23, 2024 Dr. Beulah Pittman MD Referring Provider Active Start: October 23, 2024 End: October 23, 2024 Neck Cutter Relationship Specialty Start Date End Date Miguelangel Courtney MD [address] [facility], [place] [address] PCP - General Family Medicine 10/16/15 Uzma Hanley, ON AIR PERSONALITY.TRAIN ANNOUNCER [address] [facility] [place] [address] [facility] 06/19/24 Willow Marcelo ON AIR PERSONALITY.TRAIN ANNOUNCER [address] [facility] [place] [address] [facility] 06/19/24 Neck Cutter Relationship Specialty Start Date End Date Miguelangel Courtney MD [address] [facility] [place] [address] PCP - General Family Medicine 10/16/15 Uzma Hanley, ON AIR PERSONALITY.TRAIN ANNOUNCER [address] [facility] [place] [address] [facility] Medicine 06/19/24 Willow Marcelo ON AIR PERSONALITY.TRAIN ANNOUNCER [address] [facility] [place] [address] [facility] 06/19/24 Kirsten Etienne sanitation officerConsultant [employer]. Vice President [employer] ) 09/15/24 11/02/24 Neck Cutter Relationship Specialty Start Date End Date Miguelangel Courtney MD [address] [facility] [address] PCP - General Family Medicine 10/16/15 Uzma Hanley APRN.TRAIN ANNOUNCER [address] [place] [address] Director Video Family Medicine 06/19/24 Willow Marcelo APRN.TRAIN ANNOUNCER [address] [facility] [address] [facility] 06/19/24 Neck Cutter Relationship Specialty Start Date End Date Miguelangel Courtney MD [address] [facility] [place] [address] PCP - General Family Medicine 10/16/15 Uzma Hanley APRN.TRAIN ANNOUNCER [address] [place] [address] Director [facility] 06/19/24 Willow Marcelo APRN.TRAIN ANNOUNCER [address] [facility] [address] Director [facility] 06/19/24 Neck Cutter Relationship Specialty Start Date End Date Miguelangel Courtney MD [address] [facility] [place] [address] PCP - General Family Medicine 10/16/15 Uzma Hanley APRN.TRAIN ANNOUNCER [address] [facility] [place] [address] Director Video Family Medicine 06/19/24 Willow Marcelo APRN.TRAIN ANNOUNCER [address] [facility] [place] [place] [address] [facility] 06/[facility]/24 Neck Cutter Relationship Specialty Start Date End Date Miguelangel Courtney MD [address] [facility] [address] PCP - General Family Medicine 10/16/15 Uzma Hanley, ON AIR PERSONALITY.TRAIN ANNOUNCER [address] [facility] [place] [address] Director [facility] 06/19/24 Willow Marcelo ON AIR PERSONALITY.TRAIN ANNOUNCER [address] [facility] [place] [address] [facility] 06/19/24 Kirsten Etienne, sanitation officerConsultant [employer]. Vice President [employer] 09/15/24 11/02/24 Neck Cutter Relationship Specialty Start Date End Date Miguelangel Courtney MD [address] [facility] [place] [address] PCP - General Family Medicine 10/16/15 Uzma Hanley, ON AIR PERSONALITY.TRAIN ANNOUNCER [address] [facility] [place] [address] [facility] Medicine 06/19/24 Willow Marcelo ON AIR PERSONALITY.TRAIN ANNOUNCER [address] [facility] [place] [address] Director [facility] 06/19/24 Neck Cutter Relationship Specialty Start Date End Date Miguelangel Courtney MD [address] [facility] [place] [address] PCP - General Family Medicine 10/16/15 Uzma Hanley APRN.TRAIN ANNOUNCER [address] [facility] [place] [address] Director Video Family [facility] 06/19/24 Willow Marcelo APRN.TRAIN ANNOUNCER [address] [facility] [address] Director Video Family Medicine 06/19/24 Neck Cutter Relationship Specialty Start Date End Date Miguelangel Courtney MD [address] [facility] [place] [address] PCP - General Family Medicine 10/16/15 Uzma Hanley APRN.TRAIN ANNOUNCER [address] [facility] [address] Director Video Family [facility] 06/19/24 Willow Marcelo ON AIR PERSONALITY.TRAIN ANNOUNCER [address] [facility] [place] [address] [facility] 06/19/24 Neck Cutter Relationship Specialty Start Date End Date Miguelangel Courtney MD [address] [facility] [place] [place] [address] PCP - General Family Medicine 10/16/15 Uzma Hanley APRN.TRAIN ANNOUNCER [address] [facility] [place] [address] Director Video Family Medicine 06/19/24 Willow Marcelo APRN.TRAIN ANNOUNCER [address] [facility] [place] [place] [address] Director Video Family Medicine 06/19/24 Kirsten Etienne RN [employer]. Vice President [employer] 09/15/24 11/02/24 Neck Cutter Relationship Specialty Start Date End Date Miguelangel Courtney MD [address] [facility] [place] [place] [address] PCP - General Family Medicine 10/16/15 Uzma Hanley APRN.TRAIN ANNOUNCER [address] [facility] [address] Director Video Family Medicine 06/19/24 Willow Marcelo ON AIR PERSONALITY.TRAIN ANNOUNCER [address] [facility] [place] [place] [address] Director Video [facility] Medicine 06/19/24 Neck Cutter Relationship Specialty Start Date End Date Miguelangel Courtney MD [address] [facility] [place] [place] [address] PCP - General Family Medicine 10/16/15 Uzma Hanley ON AIR PERSONALITY.TRAIN ANNOUNCER [address] [facility] [place] [address] Director Video Family Medicine 06/19/24 Willow Marcelo ON AIR PERSONALITY.TRAIN ANNOUNCER [address] [facility] [place] [place] [address] Director Video Family Medicine 06/19/24 Neck Cutter Relationship Specialty Start Date End Date Miguelangel Courtney MD [address] [facility] [place] [place] [address] PCP - General Family Medicine 10/16/15 Uzma Hanley ON AIR PERSONALITY.TRAIN ANNOUNCER [address] [facility] [address] Director Video Family Medicine 06/19/24 Willow Marcelo ON AIR PERSONALITY.TRAIN ANNOUNCER [address] [place] [address] Director Video Family Medicine 06/19/24 Neck Cutter Relationship Specialty Start Date End Date Miguelangel Courtney MD [address] [place] [address] PCP - General Family Medicine 10/16/15 Uzma Hanley APRN.TRAIN ANNOUNCER [address] [place] [address] Director Video Family Medicine 06/19/24 Willow Marcelo APRN.TRAIN ANNOUNCER [address] [place] [address] [facility] 06/19/24 Neck Cutter Relationship Specialty Start Date End Date Miguelangel Courtney MD [address] [place] [address] PCP - General Family Medicine 10/16/15 Uzma Hanley ON AIR PERSONALITY.TRAIN ANNOUNCER [address] [place] [address] Director Video Family Medicine 06/19/24 Willow Marcelo ON AIR PERSONALITY.TRAIN ANNOUNCER [address] [place] [address] Director Video Family Medicine 06/19/24 Neck Cutter Relationship Specialty Start Date End Date Miguelangel Courtney MD [address] [place] [address] PCP - General Family Medicine 10/16/15 Uzma Hanley, ON AIR PERSONALITY.TRAIN ANNOUNCER [address] [place], [place] [address] [facility] 06/19/24 Willow Marcelo APRN.TRAIN ANNOUNCER [address] [place], [place] [id number] [facility] 06/19/24 Neck Cutter Relationship Specialty Start Date End Date Miguelangel Courtney MD [address] [place], [place] [id number] PCP - General Family Medicine 10/16/15 Uzma Hanley APRN.TRAIN ANNOUNCER [address] [place], [place] [id number] [facility] 06/19/24 Willow Marcelo ON AIR PERSONALITY.TRAIN ANNOUNCER [address] [place], [place] [id number] [facility] 06/19/24 Team Status: Active Member Role/Relationship Status Dates Dr. Miguelangel Courtney MD Primary Care Provider Active Team Status: Inactive Member Role/Relationship Status Dates Dr. Miguelanegl Courtney MD Primary Care Provider Active Start: October 23, 2024 End: October 23, 2024 Dr. Beulah Pittman MD Attending Provider Active Start: October 23, 2024 End: October 23, 2024 Dr. Beulah Pittman MD Referring Provider Active Start: October 23, 2024 End: October 23, 2024 Team Status: Inactive Member Role/Relationship Status Dates Dr. Miguelangel Courtney MD Primary Care Provider Active Start: February 07, 2025 End: February 07, 2025 Dr. Raissa Cerrato DO Attending Provider Active Start: February 07, 2025 End: February 07, 2025 Dr. Raissa Cerrato DO Referring Provider Active Start: February 07, 2025 End: February 07, 2025 Neck Cutter Relationship Specialty Start Date End Date Miguelangel Courtney MD [address] [place] [address] PCP - General Family Medicine 10/16/15 Uzma Hanley APRN.TRAIN ANNOUNCER [address] [place] [address] [facility] 06/19/24 Willow Marcelo APRN.TRAIN ANNOUNCER [address] [place] [place], [place] [address] [facility] 06/19/24 Goals (unrecognized section and content) Goals may be documented in a n alternate sectionGoals may be documented in an alternate sectionGoals may be documented in an alternate sectionGoals may be documented in an alternate sectionGoals may be documented in an alternate sectionGoals may be documented in an alternate sectionGoals may be documented in an alternate sectionGoals may be documented in an alternate sectionGoals may be documented in an alternate sectionGoals may be documented in an alternate section FOR RECORDS PERTAINING TO PATIENTS WHO ARE OR HAVE BEEN ENROLLED IN A CHEMICAL DEPENDENCY/SUBSTANCEABUSE PROGRAM, SOME INFORMATION MAY BE OMITTED. This clinical summary was aggregated from multiple sources. Caution should be exercised in using it in the provision of clinical care. This summary normalizes information from multiple sources, and as a consequence, information in this document may materially change the coding, format and clinical context of patient data. In addition, data may be omitted in some cases. CLINICAL DECISIONS SHOULD BE BASED ON THE PRIMARY CLINICAL RECORDS. [facility]. provides no warranty or guarantee of the accuracy or completeness of information in this document.
== END | disposition home or self-care (01) ==
PROVIDERS: PCP Family Medicine; Referring Provider Ophthalmology; Visit Provider Ophthalmology
DX: L82.1 Other seborrheic keratosis (principal)
CPT/HCPCS: 88305